=== PATIENT | male | born 1945 | race Caucasian/White ===

== ENCOUNTER → 2016-07-13 | Outpatient (CLI) | payer MEDICARE, BC ==
--- NOTE | 2016-07-13 10:25 | XR ---
EXAM TYPE: LUMBAR SPINE X RAY SERIES COMPARISON: NONE HISTORY: Back pain FINDINGS: Alignment is anatomic. The pedicles are intact. The transverse processes are intact. There is no s pondylolysis or spondylolisthesis. Slight curvature of the spine. Facet arthropathy L4-5 and L5-S1. Severe degenerative disc disease L-1 through S1. IMPRESSION: 1. Multilevel degenerative disc disease.
== END | disposition home or self-care (01) ==
LOC: RADXRMAIN 09:51
PROVIDERS: ATTEND Internal Medicine
DX: M51.37 Other intervertebral disc degeneration, lumbosacral region (principal)
CPT/HCPCS: 72110

== ENCOUNTER → 2016-07-27 | Outpatient (CLI) | payer MEDICARE, BC ==
--- NOTE | 2016-07-27 15:21 | US ---
EXAMINATION TYPE: US kidneys/renal and bladder DATE OF EXAM: 07/27/2016 3:04 PM COMPARISON: NONE CLINICAL HISTORY: 71-year-old male with M54.9 left CVA PAIN. LEFT FLANK PAIN per patient TECHNIQUE: Multiple sonographic images of the kidneys and bladder were obtained. FINDINGS: Right Kidney: 12.2 x 5.1 x 5.8 cm without hydronephrosis. Left Kidney: 12.2 x 5.3 x 3.8 cm without hydronephrosis. Underdistention of the bladder limits its evaluation. IMPRESSION: No hydronephrosis. Note that ultrasound is not very sensitive for pyelonephritis.
== END | disposition home or self-care (01) ==
LOC: RADUSWWP 14:46
PROVIDERS: ATTEND Internal Medicine
DX: M54.9 Dorsalgia, unspecified (principal)
CPT/HCPCS: 76770

== ENCOUNTER → 2017-12-06 | Outpatient (CLI) | payer MEDICARE, BC ==
[2017-12-06 11:18] LABS: HCT 42.8 % (39.0-53.0); HGB 14.1 gm/dL (13.0-17.5); MCV 90.8 fL (80.0-100.0); Mean Platelet Volume 9.1; Platelet Count 214 k/uL (150-450); RBC 4.72 m/uL (4.30-5.90); RDW 12.8 % (11.5-15.5); WBC 8.2 k/uL (3.8-10.6)
[2017-12-06 11:29] LABS: Potassium 5.2 mmol/L (3.5-5.1)
== END | disposition home or self-care (01) ==
LOC: LABPAT 10:51
PROVIDERS: ATTEND Internal Medicine Interventional Cardiology
DX: Z01.812 Encounter for preprocedural laboratory examination (principal); I25.10 Atherosclerotic heart disease of native coronary artery without angina pectoris
CPT/HCPCS: 36415; 80051; 82565; 84520; 85027

== ENCOUNTER → 2017-12-14 | Day surgery (SDC) | payer MEDICARE, BC ==
[~2017-12-14] MED LIST: ALPRAZolam 0.25 MG TAB PO PRN; ALPRAZolam 0.5 MG TAB PO PRN; ASPIRIN 325 MG TAB PO STA; ATORVASTATIN 80 MG TAB PO STA; FUROSEMIDE 10 MG/ML 2 ML VIAL IV ONE; FUROSEMIDE 10 MG/ML 4 ML VIAL IVP ONE; FUROSEMIDE 10 MG/ML 4 ML VIAL ONE; HEPARIN SODIUM 1,000 UN/ML (10ML VL) IV ONE; IOPAMIDOL-370 100ML BTL INJ ONE; IOPAMIDOL-370 50ML BTL INJ ONE; LIDOCAINE 2% SYG (PF) 100 MG/5 ML MISCELLANE ONE; MIDAZOLAM 2 MG/2 ML VIAL IVP ONE; NITROGLYCERIN SL TABS 0.4 MG TAB SUBLINGUAL PRN; RX INFO: IV CONTRAST WAS GIVEN 1 EACH MISC MISCELLANE PRN; SODIUM CHLORIDE 0.9% 1,000 ML IV SCH; SODIUM CHLORIDE 0.9% 1,000 ML in EMPTY BAG 1 BAG IV ONE; diphenhydrAMINE 50 MG/ML 1 ML VIAL IVP ONE
[2017-12-14 06:58] VITALS: RESP 18
[2017-12-14 07:05] LABS: Glucose,Whole Blood 72 mg/dL (75-99)
[2017-12-14] MEDS: VERAPAMIL SYRINGE (5 MG/10 ML) INTRAARTER ONE ×2 (07:41→08:02)
[2017-12-14 09:09] VITALS: TEMP 98
--- NOTE | 2017-12-14 09:36 | CC ---
CARDIAC CATHETERIZATION REPORT DATE OF SERVICE: 12/14/2017. PROCEDURE: Left heart catheterization and coronary angiography and left ventriculography. PERFORMED BY: Dr. Amanda Pritchett. Moderate conscious sedation time was 31 minutes. Patient was monitored closely for oxygen saturation, hemodynamics and EKG. He received a combination of Versed and Benadryl. CLINICAL INFORMATION: Mr. Ricky Friedman is a 72-year-old gentleman with type 2 diabetes, hypertension, hyperlipidemia, known history of prior anterior myocardial infarction and multiple interventions of his LAD. Because of symptoms suggestive of angina pectoris and shortness of breath with activity and known prior intervention, I recommended coronary angiography. Previous stress test revealed a predominantly fixed defect. The patient was advised coronary angiography with the understanding that he may have progression of CAD. Risks, benefits, options and rationale were explained. His last intervention was performed on September 2011 with LAD stenting and prior to that he had stenting of the LAD and diagonal in 2005. PROCEDURE NOTE: Under local anesthesia and strict aseptic precautions, a 6-Djiboutian introducer was placed in the right radial artery. Using Ultimate 1 catheter I performed selective coronary angiography of the left system. A standard right Natalia was used to perform selective coronary angiography of the right coronary artery. A pigtail catheter was used to check LV pressures and LV gram was performed in 30-degree GREENFIELD projection. The sheath was taken out and a TR band applied as per protocol. Saturation in the fingers of the right hand was 94%. Patient tolerated procedure well without complications. He was bradycardic throughout. Results were discussed with the patient and . CARDIAC CATHETERIZATION FINDINGS: The left ventricle end-diastolic pressure was 24 mmHg without any gradient across the aortic valve. CORONARY ANGIOGRAPHY FINDINGS: LEFT MAIN CORONARY ARTERY: This is a short vessel has moderate 20% diffuse disease throughout. It bifurcates into LAD and circumflex. LEFT ANTERIOR DESCENDING CORONARY ARTERY: This vessel is totally occluded in the proximal portion within the stented segment without much antegrade flow. LEFT POSTERIOR CIRCUMFLEX CORONARY ARTERY: Technically nondominant vessel gives off a single large obtuse marginal that is free of significant disease. There is a groove branch that has a70% to 80% narrowing, but groove branch is small, has diffuse disease, but the circumflex itself has no more than 30% narrowing and runs laterally supplying a fair amount of myocardium. The groove branch of circumflex has 80% stenosis, appears to be small in caliber, but fair distribution. RIGHT CORONARY ARTERY: This is a technically a dominant vessel has mild diffuse disease and moderate to heavy calcification in the proximal and midportion. The midportion has an eccentric 60% narrowing and beyond that there is another 50% to 60% narrowing after which the caliber of the vessel improves. It bifurcates into PDA and PLV. PLV is smaller. PDA is larger. The entire RCA is heavily calcified. There are multiple areas of narrowing and there are tandem lesions one of 60% in the mid and distal portion. The right coronary artery provides rich network of collaterals, especially the conus branch of the RCA provides rich collaterals to the entire LAD and the entire LAD is opacified throughout. LAD has diffuse disease seen throughout. LEFT VENTRICULOGRAM: This was performed in 30-degree GREENFIELD projection revealed left ventricle which is mildly enlarged with mid anterior wall hypokinesia and also anteroapical hypokinesia. Estimated ejection fraction of 35% to 40% without mitral regurgitation. FINAL IMPRESSION: This patient has a totally occluded LAD that was stented multiple times without much antegrade flow. The circumflex groove branch has 70% to 80% stenosis and RCA which is dominant, has type 2 tandem 60% lesions and then provides collaterals to the LAD. There is evidence of anteroapical hypokinesia with ejection fraction of 35% to 40% without mitral regurgitation. RECOMMENDATIONS: I am recommending that we will continue medical therapy for now and check viability in the LAD distribution and if it is there, he will benefit from aortocoronary bypass surgery with graft to the LAD and RCA. RCA has 2 tandem lesions and probably the distal RCA is graftable. Both the LAD and RCA are heavily calcified vessels. The circumflex groove branch can be addressed by way of percutaneous coronary intervention. This could be a hybrid procedure down the road, but first we will check viability assessment. Discussed my thoughts in detail with the patient and and I expect he will be discharged later on today without beta jack because of significant bradycardia. I will also hold his Plavix. MMODL / IJN: [id number] /
--- NOTE | 2017-12-14 11:54 | ECHOF ---
Referral Reason:POST CATH MEASUREMENTS -------- HEIGHT: 175.3 cm WEIGHT: 113.4 kg BP: 116/58 RVIDd: 3.1 cm (< 3.3) IVSd: 1.3 cm (0.6 - 1.1) LVIDd: 5.6 cm (3.9 - 5.3) LVPWd: 1.1 cm (0.6 - 1.1) IVSs: 1.5 cm LVIDs: 3.9 cm LVPWs: 1.9 cm LA Diam: 3.9 cm (2.7 - 3.8) LAESV Index (A-L): 25.13 ml/m Ao Diam: 3.1 cm (2.0 - 3.7) AV Cusp: 2.1 cm (1.5 - 2.6) MV EXCURSION: 18.807 mm (> 18.000) MV EF SLOPE: 75 mm/s (70 - 150) EPSS: 0.7 cm MV E Damian: 0.81 m/s MV DecT: 341 ms MV A Damian: 0.64 m/s MV E/A Ratio: 1.26 FINDINGS -------- Resting bradycardia (HR<60bpm). This was a technically difficult study with suboptimal apical views. The left ventricular size is normal. There is mild concentric left ventricular hypertrophy. Overa ll left ventricular systolic function is moderately impaired with, an EF between 35 - 40 %. The ehsan stolic filling pattern is normal for the age of the patient 11.35. Apical anterior LV wall motion i s hypokinetic. Apical septum LV wall motion is hypokinetic. The right ventricle is normal in size and function. Normal LA size by volume 22+/-6 ml/m2. The right atrium is normal in size. 3 ml of Lumason was utilized for enhancement of images. There is mild aortic valve sclerosis. There is trace mitral regurgitation. The tricuspid valve appears structurally normal. There is no pulmonic regurgitation present. The aortic root size is normal. Normal inferior vena cava with normal inspiratory collapse consistent with estimated right atrial pre ssure of 5 mmHg. There is no pericardial effusion. CONCLUSIONS -------- 1. Resting bradycardia (HR<60bpm). 2. This was a technically difficult study with suboptimal apical views. 3. The left ventricular size is normal. 4. There is mild concentric left ventricular hypertrophy. 5. Apical septum LV wall motion is hypokinetic. 6. The right ventricle is normal in size and function. 7. Normal LA size by volume 22+/-6 ml/m2. 8. The right atrium is normal in size. 9. 3 ml of Lumason was utilized for enhancement of images. 10. There is mild aortic valve sclerosis. 11. There is trace mitral regurgitation. 12. The tricuspid valve appears structurally normal. 13. There is no pulmonic regurgitation present. 14. The aortic root size is normal. 15. Normal inferior vena cava with normal inspiratory collapse consistent with estimated right atrial pressure of 5 mmHg. 16. There is no pericardial effusion. WORK CAR OPERATOR: Maddie Lozoya RDCS
[2017-12-14 14:13] VITALS: BP 137/60; PULSE 41
== END ==
LOC: CATHCVL 06:19
PROVIDERS: ATTEND Internal Medicine Interventional Cardiology
DX: I25.110 Atherosclerotic heart disease of native coronary artery with unstable angina pectoris (principal); T82.855A Stenosis of coronary artery stent, initial encounter; I25.84 Coronary atherosclerosis due to calcified coronary lesion; I25.82 Chronic total occlusion of coronary artery; E11.22 Type 2 diabetes mellitus with diabetic chronic kidney disease; I12.9 Hypertensive chronic kidney disease with stage 1 through stage 4 chronic kidney disease, or unspecified chronic kidney disease; N18.1 Chronic kidney disease, stage 1; I08.0 Rheumatic disorders of both mitral and aortic valves; I25.2 Old myocardial infarction; R00.1 Bradycardia, unspecified; Z79.4 Long term (current) use of insulin; Z95.5 Presence of coronary angioplasty implant and graft; E78.00 Pure hypercholesterolemia, unspecified; E78.5 Hyperlipidemia, unspecified; Z79.02 Long term (current) use of antithrombotics/antiplatelets; Z79.82 Long term (current) use of aspirin; Z79.1 Long term (current) use of non-steroidal anti-inflammatories (NSAID); Z79.899 Other long term (current) drug therapy
CPT/HCPCS: 93458; C8929; C1769 ×2; C1894; J2250; J1200; J1940 ×2; J2001; J1644; Q9950; Q9967 ×2; 93306

== ENCOUNTER → 2017-12-21 | Outpatient (CLI) | payer MEDICARE, BC ==
[2017-12-21 16:53] LABS: T4, Free (Free Thyroxine) 0.78 ng/dL (0.78-2.19)
== END | disposition home or self-care (01) ==
LOC: LABWHC1 14:55
PROVIDERS: ATTEND Internal Medicine Interventional Cardiology
DX: E03.9 Hypothyroidism, unspecified (principal)
CPT/HCPCS: 36415; 82607; 82746; 84439; 84443

== ENCOUNTER → 2018-01-04 | Outpatient (CLI) | payer MEDICARE, BC ==
[2018-01-04 09:45] LABS: Appearance,Urine Clear (Clear); Bilirubin,Urine Negative (Negative); Blood,Urine Negative (Negative); Color,Urine Yellow; Glucose,Urine (UA) Negative (Negative); Ketones,Urine Negative (Negative); Leukocyte Esterase,Urine Negative (Negative); Nitrite,Urine Negative (Negative); Protein,Urine Negative (Negative); Specific Gravity,Urine 1.014 (1.001-1.035); Urobilinogen,Urine <2.0 mg/dL (<2.0)
[2018-01-04 09:56] LABS: HGB 15.1 gm/dL (13.0-17.5); MCHC 32.9 g/dL (31.0-37.0); MCV 91.2 fL (80.0-100.0); Mean Platelet Volume 8.1; Platelet Count 216 k/uL (150-450); RBC 5.05 m/uL (4.30-5.90); RDW 12.6 % (11.5-15.5); WBC 7.9 k/uL (3.8-10.6)
[2018-01-04 10:00] LABS: Albumin 4.1 g/dL (3.5-5.0); Calcium 9.8 mg/dL (8.4-10.2); INR 1.1 (<1.2); Magnesium 1.8 mg/dL (1.6-2.3); Partial Thromboplastin Time 25.5 sec (22.0-30.0); Potassium 4.9 mmol/L (3.5-5.1); Prothrombin Time 10.4 sec (9.0-12.0); Total Bilirubin 0.6 mg/dL (0.2-1.3); Total Protein 6.6 g/dL (6.3-8.2)
--- NOTE | 2018-01-04 14:30 | XR ---
EXAMINATION TYPE: XR chest 2V DATE OF EXAM: 01/04/2018 COMPARISON: Prior chest x-ray 06/09/2014 HISTORY: Preop TECHNIQUE: Frontal and lateral views of the chest are obtained. FINDINGS: There are old right-sided rib fractures, as on prior exam. There is no evident airspace di sease, pneumothorax, or pleural effusion. Strand-like densities at the lingula likely reflects scarri ng and are stable. Cardiac mediastinal silhouette, pulmonary vascularity and jesica are unchanged. Pers istent elevation of the right hemidiaphragm. Coronary artery stent noted. IMPRESSION: No acute cardiopulmonary process.
[2018-01-04 17:09] LABS: Hepatitis A Antibody IgM Non-Reactive (Non-Reactive); Hepatitis B Core IgM Non-Reactive (Non-Reactive)
[2018-01-04 17:31] LABS: Hemoglobin A1C 6.8 % (4.0-6.0)
--- NOTE | 2018-01-08 10:57 | P.PN ---
Progress Note - Text Progress Note Date: 01/04/18 5 meter walk test completed on 01/04/18: #1 4.26 sec #2 4.19 sec #3 3.85 sec
--- NOTE | 2018-01-09 11:43 | P.VSCSTY ---
Greater Saphenous Vein Mapping This is bilateral lower extremity greater saphenous vein mapping. Date of service 01/04/2018 Vein quality and ultrasound appearance no intraluminal thrombus or wall changes are seen. Vein size groin right 6.3 x 7.6 groin left 11 x 10.6 High thigh right 5.7 x 6.1 high thigh left 4.4 x 5.6 Mid thigh right 5.7 x 6.5 mid thigh left 4.6 x 5.0 Above-knee right 4.7 x 5.4 above- knee left 4.8 x 5.5 Below knee right 3.9 x 4.6 below-knee left 4.3 x 4.9 Mid calf right 3.4 x 4.0 mid calf left 4.6 x 5.6 Ankle right 4.4 x 3.7 ankle left 4.3 x 6.1 Impression usable bilateral greater saphenous vein.
[2018-01-09 13:42] LABS: Glucose,Whole Blood 156 mg/dL (75-99)
[2018-01-09 14:11] LABS: Glucose,Whole Blood 149 mg/dL (75-99)
--- NOTE | 2018-01-10 10:25 | P.ARTDOP ---
Arterial Doppler LOWER EXTREMITY ARTERIAL DOPPLER: DATE OF SERVICE: 01/04/2018 Reason for study: Preop CABG. Doppler waveforms: Multiphasic bilaterally throughout. Pulse volume recording: []. Pressure gradients: None. Ankle-brachial indices: Greater than 1 bilaterally. Toe pressures: [] on the right, [] on the left Impression: Normal study.
== END | disposition home or self-care (01) ==
LOC: LABPAT 07:30
PROVIDERS: ATTEND Thoracic Surgery (Cardiothoracic Vascular Surgery)
DX: I25.10 Atherosclerotic heart disease of native coronary artery without angina pectoris (principal)
CPT/HCPCS: 36415; 71046; 80053; 80061; 80074; 81003; 83036; 83735; 83880; 84443; 84484; 85027; 85610; 85730; 86850; 86900; 86901; 86920; 87070; 87086; 93005; 93922; 93970; 94150

== ENCOUNTER 2018-01-09 05:37 | Inpatient (IN) | payer MEDICARE, BC ==
[~2018-01-09 05:37] MED LIST changes: +ALBUMIN HUMAN 25% 50 ML IV ONE; +ALBUMIN HUMAN 5% 500 ML IVPB ONE; -ALPRAZolam 0.25 MG TAB PO PRN; -ALPRAZolam 0.5 MG TAB PO PRN; +ASPIRIN 325 MG TAB PO ONE; -ASPIRIN 325 MG TAB PO STA; +ATORVASTATIN 10 MG TAB PO ONE; -ATORVASTATIN 80 MG TAB PO STA; +CALCIUM CHLORIDE 100 MG/ML 10 ML SYRINGE IV ONE; +CHLORHEXIDINE GLUCONATE 15 ML CUP MUCOUS MEM ONE; +CLEVIDIPINE BUTYRATE 25 MG in EMPTY BAG 1 BAG IV ONE; +DEXTROSE 5% IN WATER 1,000 ML with POTASSIUM CHLORIDE 110 MEQ, MAGNESIUM SULFATE 16 MEQ... IV ONE; +DEXTROSE 5% IN WATER 1,000 ML with POTASSIUM CHLORIDE 25 MEQ, SODIUM CHLORIDE 2.5MEQ/ML... IRRIGATION ONE; -FUROSEMIDE 10 MG/ML 2 ML VIAL IV ONE; -FUROSEMIDE 10 MG/ML 4 ML VIAL IVP ONE; -FUROSEMIDE 10 MG/ML 4 ML VIAL ONE; +HEPARIN SODIUM,PORCINE 5,000 UNIT in SODIUM CHLORIDE 0.9% 500 ML IV ONE; +INSULIN REGULAR 100 UNIT in SODIUM CHLORIDE 0.9% 100 ML IV ONE; -IOPAMIDOL-370 100ML BTL INJ ONE; -IOPAMIDOL-370 50ML BTL INJ ONE; +LACTATED RINGERS 1,000 ML IV ONE; -LIDOCAINE 2% SYG (PF) 100 MG/5 ML MISCELLANE ONE; +MAGNESIUM SULFATE MG 500 MG/ML VIAL IV ONE; +MANNITOL 25% 12.5 GM/50 ML VIAL IV ONE; +METOPROLOL TARTRATE 12.5 MG TAB PO ONE; -MIDAZOLAM 2 MG/2 ML VIAL IVP ONE; +MUPIROCIN 2% OINT 22 GM TUBE NASAL ONE; +NITROGLYCERIN SL TABS 0.4 MG TAB SUBLINGUAL ONE; -NITROGLYCERIN SL TABS 0.4 MG TAB SUBLINGUAL PRN; +NITROGLYCERIN-D5W PMX 25 MG/250 ML BTL IV ONE; +NITROGLYCERIN-D5W PMX 50 MG in DEXTROSE/WATER 1 250ML.BAG IV ONE; +NOREPINEPHRINE 4 MG in DEXTROSE 5% IN WATER 250 ML IV ONE; +PAPAVERINE 360 MG in SODIUM CHLORIDE 0.9% 90 ML IV ONE; +PHENYLEPHRINE 40 MG in SODIUM CHLORIDE 0.9% 250 ML IV ONE; +PHENYLEPHRINE-0.9% NACL SYG 1 MG/10 ML SYRINGE IV ONE; +PROPOFOL 1,000 MG/100 ML VIAL IV ONE; +PROTAMINE SULFATE 10 MG/ML 25 ML VIAL IV ONE; +PROTAMINE SULFATE 250 MG in EMPTY BAG 1 BAG IV ONE; -RX INFO: IV CONTRAST WAS GIVEN 1 EACH MISC MISCELLANE PRN; +SODIUM BICARB 8.4% 50 ML SYR (1 MEQ/ML) IV ONE; +SODIUM CHLORIDE 0.9% 1,000 ML IV ONE; -SODIUM CHLORIDE 0.9% 1,000 ML IV SCH; -SODIUM CHLORIDE 0.9% 1,000 ML in EMPTY BAG 1 BAG IV ONE; +TRANEXAMIC ACID 2,000 MG in SODIUM CHLORIDE 0.9% 180 ML IV ONE; +ceFAZolin 1,000 MG in SODIUM CHLORIDE 0.9% IRRIGATIO 1,000 ML IRRIGATION ONE; +ceFAZolin 2,000 MG in SODIUM CHLORIDE 0.9% 30 ML IVPB ONE; -diphenhydrAMINE 50 MG/ML 1 ML VIAL IVP ONE
[2018-01-09 06:48] LABS: Glucose,Whole Blood 117 mg/dL (75-99)
[2018-01-09] MEDS ORDERED: ceFAZolin 1,000 MG VIAL ONE (08:08)
[2018-01-09] MEDS ORDERED: TRANEXAMIC ACID 1,000 MG/10 ML VIAL ONE (08:08)
[2018-01-09] MEDS ORDERED: SODIUM CHLORIDE 0.9% IRRIG 1,000 ML BTL IRRIGATION ONE (08:08)
[2018-01-09] MEDS ORDERED: LIDOCAINE 2% SYG (PF) 100 MG/5 ML ONE (08:08)
[2018-01-09] MEDS ORDERED: SODIUM CHLORIDE 0.9% 250 ML BAG ONE (08:08)
[2018-01-09] MEDS ORDERED: MILRINONE-D5W PMX 20 MG/100 ML BAG IV ONE (08:08)
[2018-01-09] MEDS ORDERED: fentaNYL (PF) 50 MCG/ML 50 ML VIAL ONE (08:08)
[2018-01-09] MEDS ORDERED: fentaNYL (PF) 50 MCG/ML 2 ML AMP ONE (08:08)
[2018-01-09] MEDS ORDERED: ELECTROLYTE-R (PH 7.4) 1,000 ML IV.SOLN IV ONE (08:08)
[2018-01-09] MEDS ORDERED: PROPOFOL 10 MG/ML 20 ML VIAL IV ONE (08:08)
[2018-01-09] MEDS ORDERED: PROTAMINE SULFATE 10 MG/ML 25 ML VIAL IV ONE (08:08)
[2018-01-09] MEDS ORDERED: ePHEDrine SULFATE/0.9% NACL/PF 50 MG/5 ML SYRINGE IV ONE (08:08)
[2018-01-09] MEDS ORDERED: PHENYLEPHRINE-0.9% NACL SYG 1 MG/10 ML SYRINGE ONE (08:08)
[2018-01-09] MEDS ORDERED: CALCIUM CHLORIDE 100 MG/ML 10 ML SYRINGE ONE (08:08)
[2018-01-09] MEDS ORDERED: SUFentanil 50 MCG/ML 2ML AMP ONE (08:08)
[2018-01-09] MEDS ORDERED: HEPARIN SODIUM,PORCINE 10,000 UNIT/ML 1 ML VIAL ONE (08:08)
[2018-01-09] MEDS ORDERED: VECURONIUM 10 MG VIAL IV ONE (08:08)
[2018-01-09] MEDS ORDERED: MIDAZOLAM 2 MG/2 ML VIAL ONE (08:08)
[2018-01-09 08:46] LABS: ABG Base Excess 0.6 mmol/L; ABG HCO3 26 mmol/L (21-25); ABG Oxygen Saturation 99.4 % (94-97); ABG PCO2 43 mmHg (35-45); ABG PH 7.39 (7.35-7.45); ABG PO2 142 mmHg (83-108); ABG Potassium Whole Blood 4.4 mmol/L (3.4-4.5); ABG Sodium Whole Blood 140 mmol/L (135-146); ABG TCO2 27 mmol/L (19-24)
[2018-01-09] MEDS ORDERED: ceFAZolin 1,000 MG in SODIUM CHLORIDE 0.9% 1,000 ML IRRIGATION ONE (09:12)
[2018-01-09] MEDS ORDERED: SODIUM CHLORIDE 0.9% 500 ML with HEPARIN SODIUM,PORCINE 5,000 UNIT IV ONE ×2 (09:12)
[2018-01-09] MEDS ORDERED: PAPAVERINE 360 MG in SODIUM CHLORIDE 0.9% 90 ML IV ONE (09:13)
[2018-01-09] MEDS ORDERED: TRANEXAMIC ACID 2,000 MG in SODIUM CHLORIDE 0.9% 180 ML IV ONE (09:45)
[2018-01-09 10:12] LABS: ABG Base Excess 0.7 mmol/L; ABG HCO3 25 mmol/L (21-25); ABG Oxygen Saturation 97.9 % (94-97); ABG PCO2 40 mmHg (35-45); ABG PH 7.42 (7.35-7.45); ABG PO2 97 mmHg (83-108); ABG Potassium Whole Blood 4.3 mmol/L (3.4-4.5); ABG Sodium Whole Blood 139 mmol/L (135-146); ABG TCO2 27 mmol/L (19-24)
[2018-01-09 10:48] LABS: ABG Base Excess -0.1 mmol/L; ABG HCO3 26 mmol/L (21-25); ABG Oxygen Saturation 99.5 % (94-97); ABG PCO2 50 mmHg (35-45); ABG PH 7.33 (7.35-7.45); ABG PO2 162 mmHg (83-108); ABG Potassium Whole Blood 5.2 mmol/L (3.4-4.5); ABG Sodium Whole Blood 134 mmol/L (135-146); ABG TCO2 28 mmol/L (19-24)
[2018-01-09 11:19] LABS: ABG Base Excess 0.5 mmol/L; ABG HCO3 26 mmol/L (21-25); ABG PCO2 42 mmHg (35-45); ABG PH 7.39 (7.35-7.45); ABG PO2 273 mmHg (83-108); ABG Potassium Whole Blood 5.3 mmol/L (3.4-4.5); ABG Sodium Whole Blood 134 mmol/L (135-146); ABG TCO2 27 mmol/L (19-24)
[2018-01-09] MEDS ORDERED: DEXTROSE 5% IN WATER 100 ML with AMIODARONE 150 MG IV PRN (13:03)
[2018-01-09] MEDS ORDERED: Magnesium Replacement Protocol 1 EACH MISC MISCELLANE PRN (13:03)
[2018-01-09] MEDS ORDERED: METOCLOPRAMIDE 5 MG/ML 2 ML VIAL IVP PRN (13:03)
[2018-01-09] MEDS ORDERED: IPRATROPIUM-ALBUTEROL 3 ML NEB INHALATION PRN (13:03)
[2018-01-09] MEDS ORDERED: ALBUMIN HUMAN 5% 250 ML in EMPTY BAG 1 BAG IVPB PRN (13:03)
[2018-01-09] MEDS ORDERED: BENZOCAINE/MENTHOL LOZENG 1 EACH LOZENGE MUCOUS MEM PRN (13:03)
[2018-01-09] MEDS ORDERED: Phosphorus Replacement Protoco 1 EACH MISC MISCELLANE PRN (13:03)
[2018-01-09] MEDS ORDERED: MILRINONE-D5W PMX 20 MG in DEXTROSE/WATER 1 100ML.BAG IV SCH (13:03)
[2018-01-09] MEDS ORDERED: ONDANSETRON 4 MG/2 ML VIAL IVP PRN (13:03)
[2018-01-09] MEDS ORDERED: NITROGLYCERIN-D5W PMX 50 MG in DEXTROSE/WATER 1 250ML.BAG IV SCH (13:03)
[2018-01-09] MEDS ORDERED: Potassium Replacement Protocol 1 EACH MISC MISCELLANE PRN (13:03)
[2018-01-09] MEDS ORDERED: CALCIUM CHLORIDE 1,000 MG in SODIUM CHLORIDE 0.9% 100 ML IV PRN (14:00)
[2018-01-09 14:03] LABS: Ionized Calcium 5.1 mg/dL (4.5-5.3)
[2018-01-09 14:05] LABS: INR 1.3 (<1.2); Partial Thromboplastin Time 24.4 sec (22.0-30.0)
[2018-01-09 14:09] LABS: ABG Base Excess 0.8 mmol/L; ABG HCO3 27 mmol/L (21-25); ABG Oxygen Saturation 92.5 % (94-97); ABG PCO2 57 mmHg (35-45); ABG PH 7.29 (7.35-7.45); ABG PO2 71 mmHg (83-108); ABG TCO2 29 mmol/L (19-24)
--- NOTE | 2018-01-09 14:14 | XR ---
EXAMINATION TYPE: XR chest 1V portable DATE OF EXAM: 01/09/2018 COMPARISON: 01/04/2018 HISTORY: Post cardiac surgery TECHNIQUE: Single frontal view of the chest is obtained. FINDINGS: ET tube approximately 3.9 cm above the jonathon. Wayland-Callie catheter seen with the tip overly ing the proximal pulmonary outflow tract. There is postsurgical changes. Mediastinal drain and chest tube noted. Chronic appearing rib fractures noted on the right. There is bilateral areas of consolidation and ple ural effusion particularly extending along the left lung apex. IMPRESSION: 1. Postsurgical changes with bilateral areas of consolidation and pleural effusion in with apical ple ural-based thickening which may represent fluid. Correlate clinically. 2. No pneumothorax.
[2018-01-09 14:16] LABS: ALT 36 U/L (21-72); AST 40 U/L (17-59); Albumin 2.6 g/dL (3.5-5.0); Alkaline Phosphatase 26 U/L (38-126); Anion Gap 4 mmol/L; Blood Urea Nitrogen 17 mg/dL (9-20); Calcium 8.2 mg/dL (8.4-10.2); Carbon Dioxide 27 mmol/L (22-30); Chloride 106 mmol/L (98-107); Glucose 144 mg/dL (74-99); Magnesium 2.4 mg/dL (1.6-2.3); Potassium 4.5 mmol/L (3.5-5.1); Sodium 137 mmol/L (137-145); Total Bilirubin 0.6 mg/dL (0.2-1.3); Total Protein 4.4 g/dL (6.3-8.2)
[2018-01-09 14:28] LABS: Basophils % (A) 0 %; Eosinophils % (A) 0 %; HCT 33.4 % (39.0-53.0); Lymphocytes # (A) 0.6 k/uL (1.0-4.8); Lymphocytes % (A) 5 %; MCH 29.5 pg (25.0-35.0); MCHC 32.4 g/dL (31.0-37.0); MCV 91.1 fL (80.0-100.0); Mean Platelet Volume 9.1; Monocytes # (A) 0.9 k/uL (0-1.0); Monocytes % (A) 7 %; Neutrophils # (A) 10.4 k/uL (1.3-7.7); Neutrophils % (A) 87 %; Platelet Count 144 k/uL (150-450); RBC 3.67 m/uL (4.30-5.90); RDW 12.8 % (11.5-15.5); WBC 11.9 k/uL (3.8-10.6)
[2018-01-09 14:34] LABS: HGB 10.8 gm/dL (13.0-17.5)
[2018-01-09] MEDS: INSULIN REGULAR 100 UNIT in SODIUM CHLORIDE 0.9% 100 ML IV SCH (14:38)
[2018-01-09] MEDS: CLEVIDIPINE BUTYRATE 25 MG in EMPTY BAG 1 BAG IV SCH ×2 (14:39→21:09)
[2018-01-09] MEDS: LACTATED RINGERS 1,000 ML IV SCH (14:40)
--- NOTE | 2018-01-09 15:05 | OP ---
OPERATIVE REPORT DATE OF THE OPERATION: 01/09/2018. ATTENDING SURGEON: Dr. Shlomo Orosco. BIOMASS TECHNICIAN: Dev Posadas, Karl Chavez and Christofer Green. PREOPERATIVE DIAGNOSES: 1. Unstable angina. 2. Three vessel coronary artery disease. POSTOPERATIVE DIAGNOSES: 1. Unstable angina. 2. Three vessel coronary artery disease. PROCEDURES: 1. Coronary bypass grafting x3 with left internal mammary to left anterior descending artery, reverse saphenous vein graft off the aorta to the circumflex artery and the posterior descending artery with left greater saphenous vein endoscopic vein harvesting. 2. Clip ligation of the left atrial appendage with a #35 mm AtriClip. 3. Intraoperative CAYLA. ANESTHESIA: General. BLOOD LOSS: 500 mL. SUMMARY: The patient taken the operating placed supine position. After insertion of endotracheal anesthetic, placement of a [place]aconda-Callie catheter, arterial line, adequate IV access and a Del Rosario catheter, patient was carefully prepped and draped in a sterile fashion using Betadine and sterile towels. The greater saphenous vein was harvested from the right lower extremity with endovascular vein harvesting technique. All branches were doubly tied and divided and the incisions closed in 2 layers. A midline incision in the chest made sternum divided pericardium was opened. Heart size was slightly enlarged and aorta was soft. Left pleural space opened, the left internal mammary artery harvested as a pedicle from the xiphoid to the left subclavian vein. It was of 2 mm quality with excellent flow. The patient was heparinized to maintain ACT greater than 480. Aorta and vena cava were cannulated and retrograde cardioplegic catheters positioned in the ascending aorta and the coronary sinus. Patient was placed on bypass. Cross-clamp placed. The heart arrested. 500 mL retrograde cardioplegia. Retrograde cardioplegia was delivered 3-500 mL at the end of each 20 minute interval. The distal anastomoses were constructed. Reverse saphenous vein graft anastomosis to the posterior descending artery constructed using a 7-0 Prolene running suture, caliber of this vessel was 1.75 mm. Next, saphenous vein anastomosis to the circumflex artery was constructed in a similar fashion. This was 1.75 mm vessel. Next, the left internal mammary was beveled and distal anastomosis to the mid left anterior descending artery constructed using an 8-0 Prolene running suture. Caliber of this vessel is 2 mm. Under single cross-clamp, 2 proximal anastomosis were constructed on the ascending aorta using 6-0 Prolene running suture. Patient was placed head down. The aortic root was vented. One liter of warm blood retrograde cardioplegia was run. At this point, the base of the left atrial appendage was clipped with a #35 mm AtriClip. Cross-clamp was then removed. Once beating normal sinus rhythm, patient was brought off bypass. He came off bypass uneventfully with good hemodynamic support being delivered. Patient decannulated. Atrial ventricular pacing wires were placed. Mediastinal left pleural chest tubes were placed. At this point, the sternum was closed with 7 #6 sternal wires. Skin, subcutaneous tissue, fascia closed in 3 layers. The patient tolerated procedure well and was taken to the cardiovascular intensive care unit in stable condition. ANNE / TIANN: [id number] /
[2018-01-09 15:16] LABS: ABG Base Excess 0.6 mmol/L; ABG HCO3 27 mmol/L (21-25); ABG Oxygen Saturation 88.3 % (94-97); ABG PCO2 56 mmHg (35-45); ABG PH 7.29 (7.35-7.45); ABG PO2 60 mmHg (83-108); ABG TCO2 29 mmol/L (19-24)
[2018-01-09 15:17] LABS: Glucose,Whole Blood 137 mg/dL (75-99)
[2018-01-09 15:51] LABS: Glucose,Whole Blood 135 mg/dL (75-99)
[2018-01-09] MEDS ORDERED: IPRATROPIUM-ALBUTEROL 3 ML NEB INHALATION SCH (16:00)
--- NOTE | 2018-01-09 16:35 | CONS ---
CONSULTATION ATTENDING DOCTOR: Dr. Orosco and Dr. Barr Mr. Friedman is a 72-year-old male who was admitted to undergo coronary artery bypass grafting. He has a known history of CAD, has been followed by Dr. Amanda Pritchett. He has underwent stenting of the LAD in the past. He recently underwent a cardiac catheterization, was found to have a totally occluded LAD with tandem lesion and the RCA and the AV groove left circumflex. Because of that he was admitted and underwent coronary bypass grafting today by Dr. Orosco. He is intubated and sedated at this time on IV Primacor. His paced rhythm underlying rhythm is a sinus mechanism with sinus bradycardia. He received a RODRIGUES to the LAD, saphenous vein graft to the circumflex and to the PDA. Apparently there was improvement in his left ventricular systolic function at the end of the procedure. Pre surgically, it was felt that his anterior wall is viable. His coronary risk factors positive for diabetes, hypertension, hyperlipidemia. MEDICATION: At the time of presentation included metformin, Flomax, Aldactone, simvastatin 40 mg daily, losartan 50 mg daily, insulin, citalopram, and aspirin. REVIEW OF SYSTEMS: Could not be obtained. PHYSICAL EXAMINATION: He is a 72-year-old male, intubated, sedated. Blood pressure 140/60 with a heart rate in the 80s, paced. HEAD: Normocephalic. EYES: Sclerae nonicteric. NECK: [place]-Callie noted in place. No bruit. LUNGS: Clear to auscultation anteriorly. HEART: Regular rate and rhythm. S1, S2. No rub appreciated. ABDOMEN: Soft. No organomegaly. Hypoactive bowel sounds. EXTREMITIES: Marcelo wrapping in place. IMPRESSION: 1. Status post coronary bypass grafting. 2. Ischemic cardiomyopathy. 3. Hypertension. 4. Hyperlipidemia. 5. Diabetes mellitus. RECOMMENDATION: I will continue on the routine postoperative care. Hopefully he can be weaned and extubated soon and once stable I will initiate treatment with beta jack, and angiotensin receptor jack in view of the history of cardiomyopathy. Thank you for this consult. We will follow with you. MMODL / IJN: [id number] /
[2018-01-09] MEDS: ceFAZolin IN SWFI 2 GM/20 ML SYRINGE IVP SCH ×2 (16:44→23:33)
[2018-01-09 16:50] LABS: Basophils % (A) 0 %; Eosinophils # (A) 0.1 k/uL (0-0.7); Eosinophils % (A) 0 %; HGB 11.8 gm/dL (13.0-17.5); Lymphocytes # (A) 0.6 k/uL (1.0-4.8); Lymphocytes % (A) 4 %; MCH 29.6 pg (25.0-35.0); MCHC 32.8 g/dL (31.0-37.0); MCV 90.3 fL (80.0-100.0); Mean Platelet Volume 8.6; Monocytes # (A) 0.8 k/uL (0-1.0); Monocytes % (A) 6 %; Neutrophils # (A) 12.6 k/uL (1.3-7.7); Neutrophils % (A) 89 %; Platelet Count 164 k/uL (150-450); RBC 3.99 m/uL (4.30-5.90); RDW 12.7 % (11.5-15.5); WBC 14.2 k/uL (3.8-10.6)
[2018-01-09 16:52] LABS: Glucose,Whole Blood 124 mg/dL (75-99)
--- NOTE | 2018-01-09 16:53 | P.CNPUL ---
History of Present Illness Consult date: 01/09/18 Requesting physician: Shlomo Orosco Reason for consult: other Chief complaint: Multivessel coronary artery disease, status post three-vessel CABG History of present illness: Mr. Friedman is a 72-year-old white male patient of Dr. Barr with past medical history of coronary artery disease with previous myocardial infarction and stenting, insulin-dependent diabetes mellitus, hypertension, hyperlipidemia, chronic congestive heart failure with systolic dysfunction, history of CVA/TIA, lifetime nonsmoker, who we are seeing in consultation today for pulmonary/ critical care management, in the intensive care unit, post 3 vessel coronary artery bypass grafting, RODRIGUES to LAD, SVG to the PDA, and circumflex, and left atrial appendage exclusion with Atriclip, and intraoperative CAYLA. Patient was having symptoms of atypical angina, on the right side of his chest, radiating down his right arm, he underwent heart catheterization on 12/06/2017 which demonstrated left main coronary artery with moderate 20% diffuse disease, total occlusion of the left anterior descending coronary artery with in-stent stenosis , circumflex artery with 70-80% narrowing and mid RCA with 60% stenosis. LV gram showed an ejection fraction of 35-40%, with hypokinesia of the anteroapical wall. 2-D echocardiogram showed moderately impaired systolic function with an ejection fraction of 35-40%. Patient was recommended for surgical revascularization. Preop bedside spirometry revealed FEV1 of 2.0 L, or 62% of predicted, FVC of 2.5 L or 57% of predicted, and patient has a moderate amount of restriction. Patient is currently sedated on mechanical ventilation, initial vent settings were SIMV with a rate of 12, tidal 5 of 550, FiO2 100%, and PEEP of 8. Blood gas showed a O2 of 71, pCO2 57, pH of 7.29 on the above mentioned settings, and settings were changed to assist control mode with a rate of 20, tidal volume of 500, FiO2 100% and PEEP of 10, repeat blood gases showed pO2 of 60, pCO2 56, and pH of 7.29, subsequently was a rate increased to 24, and PEEP increased to 13. Maintenance IV is LR at a rate of 50 , nitroglycerin drip at 5 mics per minute, Primacor at 0.3 mcg/kg/min, and insulin drip at 5 u/hr. Cardiac index and output is 9.0/3.9 respectively, patient's intrinsic rhythm is sinus bradycardia with a rate of 65, he is being paced via epicardial AV wires, at the mode of DDD, with a rate of 70. Blood pressure is 121/51, PA pressures is 37/21. He has a mediastinal and left pleural chest tube, and there has been small serosanguineous amount of output in the chest tube collection chamber. Postop hemoglobin is 10.8, WBC is 11.9, platelet count is 144, INR is 1.3, electrolytes and renal profile are within normal limits. Patient is hemodynamically stable, nonoliguric. Review of Systems Review of system was performed based on the review of the chart, patient is currently sedated and on the mechanical ventilation All systems: negative Constitutional: Denies chills, Denies fever Eyes: denies blurred vision, denies pain Ears, nose, mouth and throat: Denies headache, Denies sore throat Cardiovascular: Reports chest pain, Denies shortness of breath Respiratory: Denies cough Gastrointestinal: Denies abdominal pain, Denies diarrhea, Denies nausea, Denies vomiting Musculoskeletal: Denies myalgias Integumentary: Denies pruritus, Denies rash Neurological: Denies numbness, Denies weakness Psychiatric: Denies anxiety, Denies depression Endocrine: Denies fatigue, Denies weight change Past Medical History Past Medical History: Coronary Artery Disease (CAD), CVA/TIA, Diabetes Mellitus , Hyperlipidemia, Hypertension, Myocardial Infarction (AR), Prostate Disorder Additional Past Medical History / Comment(s): SEE H & P PROVIDED BY DR. EVA SILVERMAN. SOME UPPER RIGHT CHEST PAIN. HX OF TIA, ENLARGED PROSTATE, AR X3 Last Myocardial Infarction Date:: 10/01/2011 History of Any Multi-Drug Resistant Organisms: None Reported Past Surgical History: Heart Catheterization With Stent, Hernia Repair Additional Past Surgical History / Comment(s): INGUINAL HERNIA, RT HEEL SURGERY WITH HARDWARE. BILATERAL CATARACTS. Past Anesthesia/Blood Transfusion Reactions: No Reported Reaction Additional Past Anesthesia/Blood Transfusion Reaction / Comment(s): no hx blood transfusion Date of Last Stent Placement:: 10/01/2011 Smoking Status: Never smoker - Past Family History Mother Family Medical History: Cancer, Diabetes Mellitus Additional Family Medical History / Comment(s): pancreas Father Family Medical History: Cancer Medications and Allergies Home Medications Medication Instructions Recorded Confirmed Type ALPRAZolam [Xanax] 0.25 mg PO BID 03/21/14 01/09/18 History Aspirin EC [Ecotrin Low Dose] 81 mg PO HS 03/21/14 01/09/18 History Citalopram Hydrobromide [CeleXA] 40 mg PO HS 03/21/14 01/09/18 History Losartan [Cozaar] 50 mg PO QAM 03/21/14 01/09/18 History Multivitamins, Thera [Multivitamin 1 tab PO HS 03/21/14 01/09/18 History (formulary)] Simvastatin [Zocor] 40 mg PO QAM 03/21/14 01/09/18 History Spironolactone [Aldactone] 25 mg PO QAM 03/21/14 01/09/18 History metFORMIN HCL [Glucophage] 1,000 mg PO BID 03/21/14 01/09/18 History Insulin NPH Hum/Reg Insulin Hm 64 unit SQ HS 12/08/17 01/09/18 History [NovoLIN 70-30 100 UNIT/ML VIAL] Insulin NPH Hum/Reg Insulin Hm 70 unit SQ QAM 12/08/17 01/09/18 History [NovoLIN 70-30 100 UNIT/ML VIAL] Naproxen [Naprosyn] 250 mg PO BID 12/08/17 01/09/18 History Tamsulosin [Flomax] 0.4 mg PO BID 12/08/17 01/09/18 History guaiFENesin [Mucinex] 600 mg PO BID 12/08/17 01/09/18 History Glucosamine-Chondr 500-400Mg 1 tab PO Q12HR 01/04/18 01/09/18 History Clopidogrel [Plavix] 75 mg PO DAILY 01/08/18 01/09/18 History Polyethylene Glycol 3350 [Miralax] 17 gm PO DAILY PRN 01/08/18 01/09/18 History Allergies Allergy/AdvReac Type Severity Reaction Status Date / Time No Known Allergies Allergy Verified 01/09/18 13:13 Physical Exam Vitals: Vital Signs Temp Pulse Pulse Pulse Resp BP BP 01/09/18 15:56 68 01/09/18 15:47 66 01/09/18 13:03 01/09/18 06:20 97.0 F L 81 80 16 140/66 149/70 Pulse Ox 01/09/18 15:56 01/09/18 15:47 01/09/18 13:03 94 L 01/09/18 06:20 92 L Intake and Output 01/09/18 01/09/18 01/09/18 06:59 14:59 22:59 Intake Total 180 Output Total 1794 Balance -1614 Intake: IV 180 Lactated Ringers 1,000 ml 100 @ 50 mls/hr IV .Q20H PENDING SALE TO [facility] Rx#:[id number] co/ci 60 pressure bag 18 Output: Chest Tube Drainage 28 Left Pleural/Mediastinal 28 Urine 766 Estimated Blood Loss 1000 Other: Voiding Method Indwelling Catheter Weight 113 kg - Constitutional General appearance: no acute distress, obese - EENT Eyes: PERRLA, dentition normal ENT: NA/AT, normal oropharynx - Neck Neck: no lymphadenopathy Carotids: bilateral: upstroke normal Thyroid: bilateral: normal size - Respiratory Respiratory: bilateral: CTA - Cardiovascular Midsternal incision is clean dry and intact, stable, covered with surgical dressing, mediastinal and left pleural chest tube insertion sites are clean dry and intact, atrioventricular epicardial wires connected to an external pacemaker , he is currently paced at a mode of DDD with a rate of 70 BPM. Rhythm: regular Heart sounds: normal: S1, S2 ankle Peripheral Edema: absent: None foot Peripheral Edema: absent: None leg Peripheral Edema: absent: None - Gastrointestinal General gastrointestinal: no organomegaly, soft, no tenderness - Integumentary Midsternal incision is clean dry and intact, stable, covered with surgical dressing, mediastinal and left pleural chest tube insertion sites are clean dry and intact, atrioventricular epicardial wires connected to an external pacemaker , he is currently paced at a mode of DDD with a rate of 70 BPM. Integumentary: normal turgor - Neurologic Sedated and on mechanical ventilator - Musculoskeletal Musculoskeletal: strength equal bilaterally - Psychiatric Sedated Results - Laboratory Findings CBC and BMP: 01/09/18 13:42 01/09/18 13:42 ABG ABG pH 7.29 (7.35-7.45) L 01/09/18 15:12 ABG pCO2 56 mmHg (35-45) H 01/09/18 15:12 ABG pO2 60 mmHg (83-108) L 01/09/18 15:12 ABG O2 Saturation 88.3 % (94-97) L 01/09/18 15:12 PT/INR, D-dimer PT 12.0 sec (9.0-12.0) 01/09/18 13:42 INR 1.3 (<1.2) H 01/09/18 13:42 Abnormal lab findings: Abnormal Labs 01/04/18 01/09/18 01/09/18 09:05 06:37 08:46 WBC RBC Hgb Hct Plt Count Neutrophils # Lymphocytes # INR ABG pH ABG pCO2 ABG pO2 142 H ABG HCO3 26 H ABG Total CO2 27 H ABG O2 Saturation 99.4 H ABG Hematocrit ABG Sodium ABG Potassium ABG Ionized Calcium ABG Glucose Hemoglobin POC Glucose (mg/dL) 117 H Glucose Calcium Magnesium Alkaline Phosphatase Total Protein Albumin Arterial Blood Potassium Arterial Blood Glucose Crossmatch See Detail 01/09/18 01/09/18 01/09/18 10:12 10:50 11:21 WBC RBC Hgb Hct Plt Count Neutrophils # Lymphocytes # INR ABG pH 7.33 L ABG pCO2 50 H ABG pO2 162 H 273 H ABG HCO3 26 H 26 H ABG Total CO2 27 H 28 H 27 H ABG O2 Saturation 97.9 H 99.5 H 100.0 H ABG Hematocrit 30 L 31 L ABG Sodium 134 L 134 L ABG Potassium 5.2 H 5.3 H ABG Ionized Calcium 4.3 L 4.3 L ABG Glucose 113 H 189 H 190 H Hemoglobin 12.9 L 9.7 L 10.0 L POC Glucose (mg/dL) Glucose Calcium Magnesium Alkaline Phosphatase Total Protein Albumin Arterial Blood Potassium 5.2 H 5.3 H Arterial Blood Glucose 113 H 189 H 190 H Crossmatch 01/09/18 01/09/18 01/09/18 13:42 13:42 13:42 WBC 11.9 H RBC 3.67 L Hgb 10.8 L D Hct 33.4 L Plt Count 144 L Neutrophils # 10.4 H Lymphocytes # 0.6 L INR 1.3 H ABG pH ABG pCO2 ABG pO2 ABG HCO3 ABG Total CO2 ABG O2 Saturation ABG Hematocrit ABG Sodium ABG Potassium ABG Ionized Calcium ABG Glucose Hemoglobin POC Glucose (mg/dL) Glucose 144 H Calcium 8.2 L Magnesium 2.4 H Alkaline Phosphatase 26 L Total Protein 4.4 L Albumin 2.6 L Arterial Blood Potassium Arterial Blood Glucose Crossmatch 01/09/18 01/09/18 01/09/18 14:07 15:08 15:12 WBC RBC Hgb Hct Plt Count Neutrophils # Lymphocytes # INR ABG pH 7.29 L 7.29 L ABG pCO2 57 H 56 H ABG pO2 71 L 60 L ABG HCO3 27 H 27 H ABG Total CO2 29 H 29 H ABG O2 Saturation 92.5 L 88.3 L ABG Hematocrit ABG Sodium ABG Potassium ABG Ionized Calcium ABG Glucose Hemoglobin POC Glucose (mg/dL) 137 H Glucose Calcium Magnesium Alkaline Phosphatase Total Protein Albumin Arterial Blood Potassium Arterial Blood Glucose Crossmatch 01/09/18 15:49 WBC RBC Hgb Hct Plt Count Neutrophils # Lymphocytes # INR ABG pH ABG pCO2 ABG pO2 ABG HCO3 ABG Total CO2 ABG O2 Saturation ABG Hematocrit ABG Sodium ABG Potassium ABG Ionized Calcium ABG Glucose Hemoglobin POC Glucose (mg/dL) 135 H Glucose Calcium Magnesium Alkaline Phosphatase Total Protein Albumin Arterial Blood Potassium Arterial Blood Glucose Crossmatch - Diagnostic Findings Chest x-ray: report reviewed, image reviewed PFT's: report reviewed, image reviewed Assessment and Plan Plan: Assessment: #1. Symptomatic multivessel coronary artery disease, status post three-vessel coronary artery bypass grafting, RODRIGUES to LAD, SVG to the PDA and circumflex, with intraoperative CAYLA and exclusion of left atrial appendage with #32 Atriclip #2. History of coronary artery disease, with 3 previous myocardial infarctions , and previous stenting #3. Lifetime nonsmoker #4. Diabetes mellitus type 2 #5. Hypertension, hyperlipidemia #6. Ischemic cardiomyopathy, with reduced left ventricular systolic function with EF of 35-40% #7. History of CVA/TIA #8. Benign prostatic hypertrophy #9. Anxiety/depression Plan: Repeat blood gases were obtained, vent changes were made accordingly, patient remains very sedated and gases were consistent with acute hypercapnic respiratory failure, and hypoxemia with metabolic response, for that reason patient was placed on assist-control mode of ventilation. Otherwise remains hemodynamically stable,there is minimal output from the mediastinal and left pleural chest tube. Continue nebulized bronchodilators, we'll proceed with weaning protocol once the patient is awake, and is unable to follow directions. We'll provide the patient with incentive spirometry after extubation. Will continue close hemodynamic monitoring. Daily chest x-rays. Daily labs. Monitor for chest tube output, monitor labs, electrolytes, renal profile. We' ll continue to follow. I performed a history & physical examination of the patient and discussed their management with my nurse practitioner, Jazmin Day. I reviewed the nurse practitioner's note and agree with the documented findings and plan of care. Lung sounds are clear. The findings and the impression was discussed with the patient. I attest to the documentation by the nurse practitioner. Critical care time is over 30 minutes Time with Patient: Greater than 30
[2018-01-09 16:55] LABS: ABG HCO3 26 mmol/L (21-25); ABG Oxygen Saturation 95.8 % (94-97); ABG PCO2 45 mmHg (35-45); ABG PH 7.37 (7.35-7.45); ABG PO2 78 mmHg (83-108); ABG TCO2 28 mmol/L (19-24)
[2018-01-09 18:26] LABS: Glucose,Whole Blood 141 mg/dL (75-99)
[2018-01-09] MEDS: ACETAMINOPHEN IV (For NPO) 1,000 MG in EMPTY BAG 1 BAG IVPB SCH (18:33)
[2018-01-09 19:03] LABS: Glucose,Whole Blood 139 mg/dL (75-99)
[2018-01-09] MEDS: IPRATROPIUM-ALBUTEROL 3 ML NEB INHALATION SCH ×2 (19:47→19:48)
[2018-01-09 19:53] LABS: Basophils % (A) 0 %; Eosinophils % (A) 0 %; HCT 34.8 % (39.0-53.0); HGB 11.4 gm/dL (13.0-17.5); Lymphocytes # (A) 0.4 k/uL (1.0-4.8); Lymphocytes % (A) 3 %; MCH 29.6 pg (25.0-35.0); MCHC 32.8 g/dL (31.0-37.0); MCV 90.2 fL (80.0-100.0); Mean Platelet Volume 8.8; Monocytes # (A) 0.7 k/uL (0-1.0); Monocytes % (A) 5 %; Neutrophils # (A) 11.5 k/uL (1.3-7.7); Neutrophils % (A) 90 %; Platelet Count 158 k/uL (150-450); RBC 3.86 m/uL (4.30-5.90); RDW 12.8 % (11.5-15.5); WBC 12.7 k/uL (3.8-10.6)
[2018-01-09 19:55] LABS: Ionized Calcium 5.1 mg/dL (4.5-5.3)
[2018-01-09 20:08] LABS: Glucose,Whole Blood 178 mg/dL (75-99)
[2018-01-09 20:38] LABS: Calcium 8.3 mg/dL (8.4-10.2); Potassium 5.3 mmol/L (3.5-5.1)
[2018-01-09] MEDS: CITALOPRAM HYDROBROMIDE 20 MG TAB PO SCH (20:43)
[2018-01-09] MEDS: MUPIROCIN 2% OINT 22 GM TUBE NASAL SCH (20:55)
[2018-01-09 21:02] LABS: Glucose,Whole Blood 184 mg/dL (75-99)
[2018-01-09] MEDS: PROPOFOL 1,000 MG in EMPTY BAG 1 BAG IV SCH ×2 (21:20→23:03)
[2018-01-09 21:57] LABS: Glucose,Whole Blood 176 mg/dL (75-99)
[2018-01-09 21:59] LABS: ABG Base Excess -1.2 mmol/L; ABG HCO3 25 mmol/L (21-25); ABG Oxygen Saturation 91.9 % (94-97); ABG PCO2 47 mmHg (35-45); ABG PH 7.33 (7.35-7.45); ABG PO2 65 mmHg (83-108); ABG TCO2 26 mmol/L (19-24)
[2018-01-09] MEDS ORDERED: FUROSEMIDE 10 MG/ML 4 ML VIAL IV STA (22:22)
[2018-01-09 23:03] LABS: Glucose,Whole Blood 177 mg/dL (75-99)
[2018-01-09] MEDS: HEPARIN SODIUM,PORCINE 5,000 UNIT/ML 1 ML VIAL SQ SCH (23:37)
[2018-01-09 23:58] LABS: Glucose,Whole Blood 172 mg/dL (75-99)
[2018-01-10] MEDS: ACETAMINOPHEN IV (For NPO) 1,000 MG in EMPTY BAG 1 BAG IVPB SCH ×4 (00:37→17:07)
[2018-01-10 00:50] LABS: Glucose,Whole Blood 167 mg/dL (75-99)
[2018-01-10 01:57] LABS: Glucose,Whole Blood 147 mg/dL (75-99)
[2018-01-10 03:02] LABS: Glucose,Whole Blood 139 mg/dL (75-99)
[2018-01-10] MEDS: CLEVIDIPINE BUTYRATE 25 MG in EMPTY BAG 1 BAG IV SCH ×7 (03:11→19:30)
[2018-01-10] MEDS: PROPOFOL 1,000 MG in EMPTY BAG 1 BAG IV SCH (03:37)
[2018-01-10 04:06] LABS: Glucose,Whole Blood 127 mg/dL (75-99)
[2018-01-10 04:59] LABS: Glucose,Whole Blood 118 mg/dL (75-99)
[2018-01-10 05:17] LABS: ABG Base Excess 0.7 mmol/L; ABG HCO3 25 mmol/L (21-25); ABG Oxygen Saturation 93.2 % (94-97); ABG PCO2 40 mmHg (35-45); ABG PH 7.41 (7.35-7.45); ABG PO2 63 mmHg (83-108); ABG TCO2 27 mmol/L (19-24)
[2018-01-10 05:57] LABS: Glucose,Whole Blood 116 mg/dL (75-99)
[2018-01-10 06:02] LABS: Basophils % (A) 0 %; Eosinophils % (A) 0 %; HCT 34.4 % (39.0-53.0); HGB 11.7 gm/dL (13.0-17.5); Lymphocytes # (A) 0.7 k/uL (1.0-4.8); Lymphocytes % (A) 6 %; MCH 30.5 pg (25.0-35.0); MCV 89.6 fL (80.0-100.0); Mean Platelet Volume 8.4; Monocytes # (A) 1.1 k/uL (0-1.0); Monocytes % (A) 8 %; Neutrophils # (A) 11.2 k/uL (1.3-7.7); Neutrophils % (A) 85 %; Platelet Count 165 k/uL (150-450); RBC 3.84 m/uL (4.30-5.90); RDW 12.8 % (11.5-15.5); WBC 13.3 k/uL (3.8-10.6)
[2018-01-10 06:11] LABS: Ionized Calcium 4.9 mg/dL (4.5-5.3)
[2018-01-10 06:16] LABS: INR 1.1 (<1.2); Partial Thromboplastin Time 23.6 sec (22.0-30.0)
[2018-01-10 06:53] LABS: Glucose,Whole Blood 117 mg/dL (75-99)
[2018-01-10 06:54] LABS: Calcium 8.3 mg/dL (8.4-10.2); Phosphorus 3.4 mg/dL (2.5-4.5); Potassium 4.3 mmol/L (3.5-5.1); Total Bilirubin 0.3 mg/dL (0.2-1.3)
[2018-01-10] MEDS ORDERED: Magnesium Replacement Protocol 1 EACH MISC MISCELLANE PRN (06:54)
[2018-01-10] MEDS: MAGNESIUM SULFATE-D5W PMX 1 GM in DEXTROSE/WATER 1 100ML.BAG IVPB SCH ×2 (07:04→10:16)
[2018-01-10] MEDS: IPRATROPIUM-ALBUTEROL 3 ML NEB INHALATION SCH ×4 (07:28→19:22)
--- NOTE | 2018-01-10 07:51 | PN ---
PROGRESS NOTE Mr. Friedman is a 72-year-old male who underwent coronary artery bypass grafting yesterday. He has a history of ischemic cardiomyopathy. He remains intubated. He was hypoxic yesterday and received a dose of diuretics. He continues to be in sinus mechanism with no evidence of tachy or bradyarrhythmia. He continues to be at this time on aspirin, Lipitor 40 mg daily, Plavix 75 mg daily and metoprolol tartrate 12.5 mg twice a day. PHYSICAL EXAMINATION: Blood pressure running in the 140s and 150s with the heart rate in 60s. LUNGS: With few crackles and decreased breath sounds anteriorly. HEART: Regular rate and rhythm S1, S2. No S3 with a rub. ABDOMEN: Soft. No organomegaly. EXTREMITIES: Marcelo wrapping in place. LAB DATA: Lab data revealed a hemoglobin of 11.7, BUN and creatinine 22 and 1.22. Potassium 4.3. Chest x-ray revealed no infiltrate. IMPRESSION: 1. Status post coronary artery bypass grafting. 2. Respiratory failure, remains intubated. 3. Ischemic cardiomyopathy. 4. Hyperlipidemia. RECOMMENDATION: I am hopeful that we can wean him and extubate him soon. I would recommend to initiate treatment with an MARCELO inhibitor and continue on the beta jack in view of the history of cardiomyopathy. MMODL / IJN: [id number] /
[2018-01-10 08:06] LABS: Glucose,Whole Blood 124 mg/dL (75-99)
--- NOTE | 2018-01-10 08:13 | XR ---
EXAMINATION TYPE: XR chest 1V portable DATE OF EXAM: 01/10/2018 COMPARISON: 01/09/2018 HISTORY: Postop TECHNIQUE: Single frontal view of the chest is obtained. FINDINGS: Bilateral consolidation and pleural effusion noted. Interstitial pattern seen. Magnet-Callie c atheter appears somewhat proximal position overlying the heart border correlate clinically. ET and NG tubes stable. Mediastinal drain and chest tube noted. No sizable pneumothorax. Chronic appearing rib deformities noted. IMPRESSION: 1. Bilateral consolidation and pleural effusion correlate for CHF. Additionally, correlate for positi on of the Magnet-Callie catheter.
[2018-01-10] MEDS: PANTOPRAZOLE 40 MG/10 ML VIAL IVP SCH (08:21)
[2018-01-10] MEDS: ASPIRIN 325 MG TAB PO SCH (08:21)
[2018-01-10] MEDS: ATORVASTATIN 40 MG TAB PO SCH (08:21)
[2018-01-10] MEDS: HEPARIN SODIUM,PORCINE 5,000 UNIT/ML 1 ML VIAL SQ SCH ×2 (08:21→16:17)
[2018-01-10] MEDS: MUPIROCIN 2% OINT 22 GM TUBE NASAL SCH ×2 (08:22→21:54)
[2018-01-10] MEDS: CLOPIDOGREL 75 MG TAB PO SCH (08:22)
[2018-01-10 08:27] LABS: ABG Base Excess -0.2 mmol/L; ABG HCO3 25 mmol/L (21-25); ABG Oxygen Saturation 99.8 % (94-97); ABG PCO2 42 mmHg (35-45); ABG PH 7.38 (7.35-7.45); ABG PO2 218 mmHg (83-108); ABG Potassium Whole Blood 4.6 mmol/L (3.4-4.5); ABG Sodium Whole Blood 136 mmol/L (135-146); ABG TCO2 26 mmol/L (19-24)
[2018-01-10 08:27] LABS: ABG Base Excess 0.3 mmol/L; ABG HCO3 25 mmol/L (21-25); ABG Oxygen Saturation 99.8 % (94-97); ABG PCO2 42 mmHg (35-45); ABG PH 7.39 (7.35-7.45); ABG PO2 214 mmHg (83-108); ABG Potassium Whole Blood 5.2 mmol/L (3.4-4.5); ABG Sodium Whole Blood 135 mmol/L (135-146); ABG TCO2 27 mmol/L (19-24)
[2018-01-10] MEDS ORDERED: FUROSEMIDE 10 MG/ML 4 ML VIAL IV STA (08:38)
[2018-01-10 08:40] LABS: ABG Base Excess 0.8 mmol/L; ABG HCO3 26 mmol/L (21-25); ABG Oxygen Saturation 94.9 % (94-97); ABG PCO2 43 mmHg (35-45); ABG PH 7.39 (7.35-7.45); ABG PO2 72 mmHg (83-108); ABG TCO2 27 mmol/L (19-24)
[2018-01-10 08:52] LABS: Glucose,Whole Blood 112 mg/dL (75-99)
[2018-01-10] MEDS ORDERED: METOPROLOL TARTRATE 12.5 MG TAB PO SCH (09:00)
--- NOTE | 2018-01-10 09:25 | P.PN ---
Subjective Progress Note Date: 01/10/18 Principal diagnosis: Multivessel coronary artery disease, status post three-vessel CABG, postop day 1 Mr. Friedman is a 72-year-old white male patient of Dr. Barr with past medical history of coronary artery disease with previous myocardial infarction and stenting, insulin-dependent diabetes mellitus, hypertension, hyperlipidemia, chronic congestive heart failure with systolic dysfunction, history of CVA/TIA, lifetime nonsmoker, who we are seeing in consultation today for pulmonary/ critical care management, in the intensive care unit, post 3 vessel coronary artery bypass grafting, RODRIGUES to LAD, SVG to the PDA, and circumflex, and left atrial appendage exclusion with Atriclip, and intraoperative CAYLA. Patient was having symptoms of atypical angina, on the right side of his chest, radiating down his right arm, he underwent heart catheterization on 12/06/2017 which demonstrated left main coronary artery with moderate 20% diffuse disease, total occlusion of the left anterior descending coronary artery with in-stent stenosis , circumflex artery with 70-80% narrowing and mid RCA with 60% stenosis. LV gram showed an ejection fraction of 35-40%, with hypokinesia of the anteroapical wall. 2-D echocardiogram showed moderately impaired systolic function with an ejection fraction of 35-40%. Patient was recommended for surgical revascularization. Preop bedside spirometry revealed FEV1 of 2.0 L, or 62% of predicted, FVC of 2.5 L or 57% of predicted, and patient has a moderate amount of restriction. Patient is currently sedated on mechanical ventilation, initial vent settings were SIMV with a rate of 12, tidal 5 of 550, FiO2 100%, and PEEP of 8. Blood gas showed a O2 of 71, pCO2 57, pH of 7.29 on the above mentioned settings, and settings were changed to assist control mode with a rate of 20, tidal volume of 500, FiO2 100% and PEEP of 10, repeat blood gases showed pO2 of 60, pCO2 56, and pH of 7.29, subsequently was a rate increased to 24, and PEEP increased to 13. Maintenance IV is LR at a rate of 50 , nitroglycerin drip at 5 mics per minute, Primacor at 0.3 mcg/kg/min, and insulin drip at 5 u/hr. Cardiac index and output is 9.0/3.9 respectively, patient's intrinsic rhythm is sinus bradycardia with a rate of 65, he is being paced via epicardial AV wires, at the mode of DDD, with a rate of 70. Blood pressure is 121/51, PA pressures is 37/21. He has a mediastinal and left pleural chest tube, and there has been small serosanguineous amount of output in the chest tube collection chamber. Postop hemoglobin is 10.8, WBC is 11.9, platelet count is 144, INR is 1.3, electrolytes and renal profile are within normal limits. Patient is hemodynamically stable, nonoliguric. On 01/10/2018 patient seen again in follow-up in the intensive care unit. Sedated on mechanical ventilation, with vent settings are assist-control mode with a rate of 24, tidal vitamin 500, FiO2 of 65, and PEEP of 5, morning blood gases showed pO2 of 63, pCO2 40, and pH of 7.41. Today's chest x-ray has been reviewed by Dr. Arreola, and showed bilateral consolidation and pleural effusions. Patient was given a sedation holiday, he is following all commands, he was given a spontaneous breathing trial, with pressure support of 5, and CPAP of 5, with FiO2 of 65%, and weaning parameters were completed, and showed tidal vitamin of 380, vital Of 1.2, minute ventilation of 7.9 L, respiratory rate of 22, NIF is -24, RSBI is 52, and these are satisfactory blood gases. Cardiothoracic surgery has ordered a dose of IV Lasix 40 mg. Maintenance IV fluids is LR at a rate of 50 ML per hour, Clevidipine at 10 mg per hour, propofol is currently off, insulin is at 5.5 units per hour, and nitroglycerin is at 5 mcg/min. PA pressures 39/16, CVP is 11, cardiac output and index are 7.1 and 3.1 respectively. Patient was successfully extubated at 0845 to 10 L per high flow nasal cannula, the patient is able to achieve 1000 mL on the incentive spirometry. Patient's current rhythm is sinus rhythm with a rate of 62 BPM, and his current pacemaker settings are backup rate of AAI at a rate of 40 BPM. Midsternal incision is clean dry and intact, stable, mediastinal and left pleural chest tubes are intact, they are connected via Y-connection, and 24 -hour output is 329 mL of serosanguineous drainage. Today's labs were reviewed , WBC is 13.3, hemoglobin is 11.7, INR is 1.1, electrolytes are within normal limits, BUN is 22, creatinine is 1.2. Patient is producing urine it is ranging from 40-75 ML per hour. Objective - Vital Signs Vital signs: Vital Signs Temp 98.6 F 01/10/18 00:00 Pulse 62 01/10/18 07:43 Resp 24 01/10/18 07:43 BP 119/54 01/10/18 04:00 Pulse Ox 94 L 01/10/18 07:00 Intake & Output 01/09/18 01/10/18 01/10/18 18:59 06:59 18:59 Intake Total 679.066 5924.536 131.067 Output Total 2055 1514 105 Balance -1582.175 342.536 26.067 Weight 113 kg 115.5 kg Intake: IV 467 1407 89 ACETAMINOPHEN IV (For NPO 200 ) 1,000 mg In Empty Bag 1 bag @ 400 mls/hr IVPB Q6HR [facility] Rx#:[id number] Lactated Ringers 1,000 ml 250 650 50 @ 50 mls/hr IV .Q20H [facility] Rx#:[id number] ceFAZolin 2,000 mg In 20 Sodium Chloride 0.9% 30 ml @ Per Protocol IVPB ONCE ONE Rx#:[id number] co/ci 170 420 30 pressure bag 45 117 9 Intake, IV Titration 5.825 449.536 42.067 Amount Clevidipine Butyrate 25 148.000 42.067 mg In Empty Bag 1 bag @ 1 MG/HR 2 mls/hr IV .Q24H [facility] Rx#:[id number] Insulin Regular 100 unit 5.825 59.659 In Sodium Chloride 0.9% 100 ml @ Per Protocol IV .Q0M [facility] Rx#:[id number] Milrinone-D5w Pmx 20 mg 84.468 In Dextrose/Water 1 100ml .bag @ Per Protocol IV . Q0M [facility] Rx#:[id number] Propofol 1,000 mg In 157.409 Empty Bag 1 bag @ Titrate IV .Q0M [facility] Rx#: [id number] Output: Chest Tube Drainage 132 197 30 Left Pleural/Mediastinal 132 197 30 Urine 923 1317 75 Estimated Blood Loss 1000 Other: Voiding Method Indwelling Catheter Indwelling Catheter ABP, PAP, CO, CI - Last Documented Arterial Blood Pressure 150/46 Pulmonary Artery Pressure 36/16 Cardiac Output 5.7 Cardiac Index 2.5 - Exam - Constitutional General appearance: no acute distress, obese. Awake, alert, currently on 10 L per high flow nasal cannula. - EENT Eyes: PERRLA, dentition normal ENT: NA/AT, normal oropharynx - Neck Neck: no lymphadenopathy Carotids: bilateral: upstroke normal Thyroid: bilateral: normal size - Respiratory Respiratory: bilateral: CTA - Cardiovascular Midsternal incision is clean dry and intact, stable, covered with surgical dressing, mediastinal and left pleural chest tube insertion sites are clean dry and intact, atrioventricular epicardial wires connected to an external pacemaker , pacemaker is at a backup rate of AAI 40 BPM. Intrinsic rhythm is 62 BPM, sinus rhythm Rhythm: regular Heart sounds: normal: S1, S2 ankle Peripheral Edema: absent: None foot Peripheral Edema: absent: None leg Peripheral Edema: absent: None - Gastrointestinal General gastrointestinal: no organomegaly, soft, no tenderness - Integumentary Midsternal incision is clean dry and intact, stable, covered with surgical dressing, mediastinal and left pleural chest tube insertion sites are clean dry and intact, bilateral lower extremities with ESTELA hose and SCDs, left lower leg incisions clean dry and intact Integumentary: normal turgor - Neurologic Awake and alert, no focal neurological deficits, responding appropriately. - Labs CBC & Chem 7: 01/10/18 05:50 01/10/18 05:50 Labs: Abnormal Lab Results - Last 24 Hours (Table) 01/04/18 01/09/18 01/09/18 Range/Units 09:05 10:12 10:50 WBC (3.8-10.6) k/uL RBC (4.30-5.90) m/uL Hgb (13.0-17.5) gm/dL Hct (39.0-53.0) % Plt Count (150-450) k/uL Neutrophils # (1.3-7.7) k/uL Lymphocytes # (1.0-4.8) k/uL Monocytes # (0-1.0) k/uL INR (<1.2) ABG pH 7.33 L (7.35-7.45) ABG pCO2 50 H (35-45) mmHg ABG pO2 162 H (83-108) mmHg ABG HCO3 26 H (21-25) mmol/L ABG Total CO2 27 H 28 H (19-24) mmol/L ABG O2 Saturation 97.9 H 99.5 H (94-97) % ABG Hematocrit 30 L (34.0-46.0) % ABG Sodium 134 L (135-146) mmol/L ABG Potassium 5.2 H (3.4-4.5) mmol/L ABG Ionized Calcium 4.3 L (4.5-5.3) mg/dL ABG Glucose 113 H 189 H (75-99) mg/dL ABG Lactic Acid (0.5-1.6) mmol/L Hemoglobin 12.9 L 9.7 L (13.0-17.5) gm/dL Sodium (137-145) mmol/L Potassium (3.5-5.1) mmol/L BUN (9-20) mg/dL Glucose (74-99) mg/dL POC Glucose (mg/dL) (75-99) mg/dL Calcium (8.4-10.2) mg/dL Magnesium (1.6-2.3) mg/dL Alkaline Phosphatase (38-126) U/L Total Protein (6.3-8.2) g/dL Albumin (3.5-5.0) g/dL Arterial Blood Potassium 5.2 H (3.4-4.5) mmol/L Arterial Blood Glucose 113 H 189 H (75-99) mg/dL Crossmatch See Detail 01/09/18 01/09/18 01/09/18 Range/Units 11:21 11:47 12:43 WBC (3.8-10.6) k/uL RBC (4.30-5.90) m/uL Hgb (13.0-17.5) gm/dL Hct (39.0-53.0) % Plt Count (150-450) k/uL Neutrophils # (1.3-7.7) k/uL Lymphocytes # (1.0-4.8) k/uL Monocytes # (0-1.0) k/uL INR (<1.2) ABG pH (7.35-7.45) ABG pCO2 (35-45) mmHg ABG pO2 273 H 214 H 218 H (83-108) mmHg ABG HCO3 26 H (21-25) mmol/L ABG Total CO2 27 H 27 H 26 H (19-24) mmol/L ABG O2 Saturation 100.0 H 99.8 H 99.8 H (94-97) % ABG Hematocrit 31 L 30 L 32 L (34.0-46.0) % ABG Sodium 134 L (135-146) mmol/L ABG Potassium 5.3 H 5.2 H 4.6 H (3.4-4.5) mmol/L ABG Ionized Calcium 4.3 L 4.3 L 4.4 L (4.5-5.3) mg/dL ABG Glucose 190 H 191 H 180 H (75-99) mg/dL ABG Lactic Acid 1.9 H 2.4 H* (0.5-1.6) mmol/L Hemoglobin 10.0 L 9.8 L 10.6 L (13.0-17.5) gm/dL Sodium (137-145) mmol/L Potassium (3.5-5.1) mmol/L BUN (9-20) mg/dL Glucose (74-99) mg/dL POC Glucose (mg/dL) (75-99) mg/dL Calcium (8.4-10.2) mg/dL Magnesium (1.6-2.3) mg/dL Alkaline Phosphatase (38-126) U/L Total Protein (6.3-8.2) g/dL Albumin (3.5-5.0) g/dL Arterial Blood Potassium 5.3 H 5.2 H 4.6 H (3.4-4.5) mmol/L Arterial Blood Glucose 190 H 191 H 180 H (75-99) mg/dL Crossmatch 01/09/18 01/09/18 01/09/18 Range/Units 13:42 13:42 13:42 WBC 11.9 H (3.8-10.6) k/uL RBC 3.67 L (4.30-5.90) m/uL Hgb 10.8 L D (13.0-17.5) gm/dL Hct 33.4 L (39.0-53.0) % Plt Count 144 L (150-450) k/uL Neutrophils # 10.4 H (1.3-7.7) k/uL Lymphocytes # 0.6 L (1.0-4.8) k/uL Monocytes # (0-1.0) k/uL INR 1.3 H (<1.2) ABG pH (7.35-7.45) ABG pCO2 (35-45) mmHg ABG pO2 (83-108) mmHg ABG HCO3 (21-25) mmol/L ABG Total CO2 (19-24) mmol/L ABG O2 Saturation (94-97) % ABG Hematocrit (34.0-46.0) % ABG Sodium (135-146) mmol/L ABG Potassium (3.4-4.5) mmol/L ABG Ionized Calcium (4.5-5.3) mg/dL ABG Glucose (75-99) mg/dL ABG Lactic Acid (0.5-1.6) mmol/L Hemoglobin (13.0-17.5) gm/dL Sodium (137-145) mmol/L Potassium (3.5-5.1) mmol/L BUN (9-20) mg/dL Glucose 144 H (74-99) mg/dL POC Glucose (mg/dL) (75-99) mg/dL Calcium 8.2 L (8.4-10.2) mg/dL Magnesium 2.4 H (1.6-2.3) mg/dL Alkaline Phosphatase 26 L (38-126) U/L Total Protein 4.4 L (6.3-8.2) g/dL Albumin 2.6 L (3.5-5.0) g/dL Arterial Blood Potassium (3.4-4.5) mmol/L Arterial Blood Glucose (75-99) mg/dL Crossmatch 01/09/18 01/09/18 01/09/18 Range/Units 14:07 15:08 15:12 WBC (3.8-10.6) k/uL RBC (4.30-5.90) m/uL Hgb (13.0-17.5) gm/dL Hct (39.0-53.0) % Plt Count (150-450) k/uL Neutrophils # (1.3-7.7) k/uL Lymphocytes # (1.0-4.8) k/uL Monocytes # (0-1.0) k/uL INR (<1.2) ABG pH 7.29 L 7.29 L (7.35-7.45) ABG pCO2 57 H 56 H (35-45) mmHg ABG pO2 71 L 60 L (83-108) mmHg ABG HCO3 27 H 27 H (21-25) mmol/L ABG Total CO2 29 H 29 H (19-24) mmol/L ABG O2 Saturation 92.5 L 88.3 L (94-97) % ABG Hematocrit (34.0-46.0) % ABG Sodium (135-146) mmol/L ABG Potassium (3.4-4.5) mmol/L ABG Ionized Calcium (4.5-5.3) mg/dL ABG Glucose (75-99) mg/dL ABG Lactic Acid (0.5-1.6) mmol/L Hemoglobin (13.0-17.5) gm/dL Sodium (137-145) mmol/L Potassium (3.5-5.1) mmol/L BUN (9-20) mg/dL Glucose (74-99) mg/dL POC Glucose (mg/dL) 137 H (75-99) mg/dL Calcium (8.4-10.2) mg/dL Magnesium (1.6-2.3) mg/dL Alkaline Phosphatase (38-126) U/L Total Protein (6.3-8.2) g/dL Albumin (3.5-5.0) g/dL Arterial Blood Potassium (3.4-4.5) mmol/L Arterial Blood Glucose (75-99) mg/dL Crossmatch 01/09/18 01/09/18 01/09/18 Range/Units 15:49 16:20 16:50 WBC 14.2 H (3.8-10.6) k/uL RBC 3.99 L (4.30-5.90) m/uL Hgb 11.8 L (13.0-17.5) gm/dL Hct 36.0 L (39.0-53.0) % Plt Count (150-450) k/uL Neutrophils # 12.6 H (1.3-7.7) k/uL Lymphocytes # 0.6 L (1.0-4.8) k/uL Monocytes # (0-1.0) k/uL INR (<1.2) ABG pH (7.35-7.45) ABG pCO2 (35-45) mmHg ABG pO2 78 L (83-108) mmHg ABG HCO3 26 H (21-25) mmol/L ABG Total CO2 28 H (19-24) mmol/L ABG O2 Saturation (94-97) % ABG Hematocrit (34.0-46.0) % ABG Sodium (135-146) mmol/L ABG Potassium (3.4-4.5) mmol/L ABG Ionized Calcium (4.5-5.3) mg/dL ABG Glucose (75-99) mg/dL ABG Lactic Acid (0.5-1.6) mmol/L Hemoglobin (13.0-17.5) gm/dL Sodium (137-145) mmol/L Potassium (3.5-5.1) mmol/L BUN (9-20) mg/dL Glucose (74-99) mg/dL POC Glucose (mg/dL) 135 H (75-99) mg/dL Calcium (8.4-10.2) mg/dL Magnesium (1.6-2.3) mg/dL Alkaline Phosphatase (38-126) U/L Total Protein (6.3-8.2) g/dL Albumin (3.5-5.0) g/dL Arterial Blood Potassium (3.4-4.5) mmol/L Arterial Blood Glucose (75-99) mg/dL Crossmatch 01/09/18 01/09/18 01/09/18 Range/Units 16:51 18:14 19:01 WBC (3.8-10.6) k/uL RBC (4.30-5.90) m/uL Hgb (13.0-17.5) gm/dL Hct (39.0-53.0) % Plt Count (150-450) k/uL Neutrophils # (1.3-7.7) k/uL Lymphocytes # (1.0-4.8) k/uL Monocytes # (0-1.0) k/uL INR (<1.2) ABG pH (7.35-7.45) ABG pCO2 (35-45) mmHg ABG pO2 (83-108) mmHg ABG HCO3 (21-25) mmol/L ABG Total CO2 (19-24) mmol/L ABG O2 Saturation (94-97) % ABG Hematocrit (34.0-46.0) % ABG Sodium (135-146) mmol/L ABG Potassium (3.4-4.5) mmol/L ABG Ionized Calcium (4.5-5.3) mg/dL ABG Glucose (75-99) mg/dL ABG Lactic Acid (0.5-1.6) mmol/L Hemoglobin (13.0-17.5) gm/dL Sodium (137-145) mmol/L Potassium (3.5-5.1) mmol/L BUN (9-20) mg/dL Glucose (74-99) mg/dL POC Glucose (mg/dL) 124 H 141 H 139 H (75-99) mg/dL Calcium (8.4-10.2) mg/dL Magnesium (1.6-2.3) mg/dL Alkaline Phosphatase (38-126) U/L Total Protein (6.3-8.2) g/dL Albumin (3.5-5.0) g/dL Arterial Blood Potassium (3.4-4.5) mmol/L Arterial Blood Glucose (75-99) mg/dL Crossmatch 01/09/18 01/09/18 01/09/18 Range/Units 19:30 19:30 20:07 WBC 12.7 H (3.8-10.6) k/uL RBC 3.86 L (4.30-5.90) m/uL Hgb 11.4 L (13.0-17.5) gm/dL Hct 34.8 L (39.0-53.0) % Plt Count (150-450) k/uL Neutrophils # 11.5 H (1.3-7.7) k/uL Lymphocytes # 0.4 L (1.0-4.8) k/uL Monocytes # (0-1.0) k/uL INR (<1.2) ABG pH (7.35-7.45) ABG pCO2 (35-45) mmHg ABG pO2 (83-108) mmHg ABG HCO3 (21-25) mmol/L ABG Total CO2 (19-24) mmol/L ABG O2 Saturation (94-97) % ABG Hematocrit (34.0-46.0) % ABG Sodium (135-146) mmol/L ABG Potassium (3.4-4.5) mmol/L ABG Ionized Calcium (4.5-5.3) mg/dL ABG Glucose (75-99) mg/dL ABG Lactic Acid (0.5-1.6) mmol/L Hemoglobin (13.0-17.5) gm/dL Sodium 135 L (137-145) mmol/L Potassium 5.3 H (3.5-5.1) mmol/L BUN (9-20) mg/dL Glucose 153 H (74-99) mg/dL POC Glucose (mg/dL) 178 H (75-99) mg/dL Calcium 8.3 L (8.4-10.2) mg/dL Magnesium (1.6-2.3) mg/dL Alkaline Phosphatase (38-126) U/L Total Protein (6.3-8.2) g/dL Albumin (3.5-5.0) g/dL Arterial Blood Potassium (3.4-4.5) mmol/L Arterial Blood Glucose (75-99) mg/dL Crossmatch 01/09/18 01/09/18 01/09/18 Range/Units 21:01 21:55 21:56 WBC (3.8-10.6) k/uL RBC (4.30-5.90) m/uL Hgb (13.0-17.5) gm/dL Hct (39.0-53.0) % Plt Count (150-450) k/uL Neutrophils # (1.3-7.7) k/uL Lymphocytes # (1.0-4.8) k/uL Monocytes # (0-1.0) k/uL INR (<1.2) ABG pH 7.33 L (7.35-7.45) ABG pCO2 47 H (35-45) mmHg ABG pO2 65 L (83-108) mmHg ABG HCO3 (21-25) mmol/L ABG Total CO2 26 H (19-24) mmol/L ABG O2 Saturation 91.9 L (94-97) % ABG Hematocrit (34.0-46.0) % ABG Sodium (135-146) mmol/L ABG Potassium (3.4-4.5) mmol/L ABG Ionized Calcium (4.5-5.3) mg/dL ABG Glucose (75-99) mg/dL ABG Lactic Acid (0.5-1.6) mmol/L Hemoglobin (13.0-17.5) gm/dL Sodium (137-145) mmol/L Potassium (3.5-5.1) mmol/L BUN (9-20) mg/dL Glucose (74-99) mg/dL POC Glucose (mg/dL) 184 H 176 H (75-99) mg/dL Calcium (8.4-10.2) mg/dL Magnesium (1.6-2.3) mg/dL Alkaline Phosphatase (38-126) U/L Total Protein (6.3-8.2) g/dL Albumin (3.5-5.0) g/dL Arterial Blood Potassium (3.4-4.5) mmol/L Arterial Blood Glucose (75-99) mg/dL Crossmatch 01/09/18 01/09/18 01/10/18 Range/Units 23:01 23:56 00:49 WBC (3.8-10.6) k/uL RBC (4.30-5.90) m/uL Hgb (13.0-17.5) gm/dL Hct (39.0-53.0) % Plt Count (150-450) k/uL Neutrophils # (1.3-7.7) k/uL Lymphocytes # (1.0-4.8) k/uL Monocytes # (0-1.0) k/uL INR (<1.2) ABG pH (7.35-7.45) ABG pCO2 (35-45) mmHg ABG pO2 (83-108) mmHg ABG HCO3 (21-25) mmol/L ABG Total CO2 (19-24) mmol/L ABG O2 Saturation (94-97) % ABG Hematocrit (34.0-46.0) % ABG Sodium (135-146) mmol/L ABG Potassium (3.4-4.5) mmol/L ABG Ionized Calcium (4.5-5.3) mg/dL ABG Glucose (75-99) mg/dL ABG Lactic Acid (0.5-1.6) mmol/L Hemoglobin (13.0-17.5) gm/dL Sodium (137-145) mmol/L Potassium (3.5-5.1) mmol/L BUN (9-20) mg/dL Glucose (74-99) mg/dL POC Glucose (mg/dL) 177 H 172 H 167 H (75-99) mg/dL Calcium (8.4-10.2) mg/dL Magnesium (1.6-2.3) mg/dL Alkaline Phosphatase (38-126) U/L Total Protein (6.3-8.2) g/dL Albumin (3.5-5.0) g/dL Arterial Blood Potassium (3.4-4.5) mmol/L Arterial Blood Glucose (75-99) mg/dL Crossmatch 01/10/18 01/10/18 01/10/18 Range/Units 01:55 03:01 04:05 WBC (3.8-10.6) k/uL RBC (4.30-5.90) m/uL Hgb (13.0-17.5) gm/dL Hct (39.0-53.0) % Plt Count (150-450) k/uL Neutrophils # (1.3-7.7) k/uL Lymphocytes # (1.0-4.8) k/uL Monocytes # (0-1.0) k/uL INR (<1.2) ABG pH (7.35-7.45) ABG pCO2 (35-45) mmHg ABG pO2 (83-108) mmHg ABG HCO3 (21-25) mmol/L ABG Total CO2 (19-24) mmol/L ABG O2 Saturation (94-97) % ABG Hematocrit (34.0-46.0) % ABG Sodium (135-146) mmol/L ABG Potassium (3.4-4.5) mmol/L ABG Ionized Calcium (4.5-5.3) mg/dL ABG Glucose (75-99) mg/dL ABG Lactic Acid (0.5-1.6) mmol/L Hemoglobin (13.0-17.5) gm/dL Sodium (137-145) mmol/L Potassium (3.5-5.1) mmol/L BUN (9-20) mg/dL Glucose (74-99) mg/dL POC Glucose (mg/dL) 147 H 139 H 127 H (75-99) mg/dL Calcium (8.4-10.2) mg/dL Magnesium (1.6-2.3) mg/dL Alkaline Phosphatase (38-126) U/L Total Protein (6.3-8.2) g/dL Albumin (3.5-5.0) g/dL Arterial Blood Potassium (3.4-4.5) mmol/L Arterial Blood Glucose (75-99) mg/dL Crossmatch 01/10/18 01/10/18 01/10/18 Range/Units 04:57 05:12 05:50 WBC 13.3 H (3.8-10.6) k/uL RBC 3.84 L (4.30-5.90) m/uL Hgb 11.7 L (13.0-17.5) gm/dL Hct 34.4 L (39.0-53.0) % Plt Count (150-450) k/uL Neutrophils # 11.2 H (1.3-7.7) k/uL Lymphocytes # 0.7 L (1.0-4.8) k/uL Monocytes # 1.1 H (0-1.0) k/uL INR (<1.2) ABG pH (7.35-7.45) ABG pCO2 (35-45) mmHg ABG pO2 63 L (83-108) mmHg ABG HCO3 (21-25) mmol/L ABG Total CO2 27 H (19-24) mmol/L ABG O2 Saturation 93.2 L (94-97) % ABG Hematocrit (34.0-46.0) % ABG Sodium (135-146) mmol/L ABG Potassium (3.4-4.5) mmol/L ABG Ionized Calcium (4.5-5.3) mg/dL ABG Glucose (75-99) mg/dL ABG Lactic Acid (0.5-1.6) mmol/L Hemoglobin (13.0-17.5) gm/dL Sodium (137-145) mmol/L Potassium (3.5-5.1) mmol/L BUN (9-20) mg/dL Glucose (74-99) mg/dL POC Glucose (mg/dL) 118 H (75-99) mg/dL Calcium (8.4-10.2) mg/dL Magnesium (1.6-2.3) mg/dL Alkaline Phosphatase (38-126) U/L Total Protein (6.3-8.2) g/dL Albumin (3.5-5.0) g/dL Arterial Blood Potassium (3.4-4.5) mmol/L Arterial Blood Glucose (75-99) mg/dL Crossmatch 01/10/18 01/10/18 01/10/18 Range/Units 05:50 05:56 06:51 WBC (3.8-10.6) k/uL RBC (4.30-5.90) m/uL Hgb (13.0-17.5) gm/dL Hct (39.0-53.0) % Plt Count (150-450) k/uL Neutrophils # (1.3-7.7) k/uL Lymphocytes # (1.0-4.8) k/uL Monocytes # (0-1.0) k/uL INR (<1.2) ABG pH (7.35-7.45) ABG pCO2 (35-45) mmHg ABG pO2 (83-108) mmHg ABG HCO3 (21-25) mmol/L ABG Total CO2 (19-24) mmol/L ABG O2 Saturation (94-97) % ABG Hematocrit (34.0-46.0) % ABG Sodium (135-146) mmol/L ABG Potassium (3.4-4.5) mmol/L ABG Ionized Calcium (4.5-5.3) mg/dL ABG Glucose (75-99) mg/dL ABG Lactic Acid (0.5-1.6) mmol/L Hemoglobin (13.0-17.5) gm/dL Sodium (137-145) mmol/L Potassium (3.5-5.1) mmol/L BUN 22 H (9-20) mg/dL Glucose 109 H (74-99) mg/dL POC Glucose (mg/dL) 116 H 117 H (75-99) mg/dL Calcium 8.3 L (8.4-10.2) mg/dL Magnesium (1.6-2.3) mg/dL Alkaline Phosphatase 31 L (38-126) U/L Total Protein 5.0 L (6.3-8.2) g/dL Albumin 3.0 L (3.5-5.0) g/dL Arterial Blood Potassium (3.4-4.5) mmol/L Arterial Blood Glucose (75-99) mg/dL Crossmatch 01/10/18 01/10/18 01/10/18 Range/Units 08:05 08:27 08:51 WBC (3.8-10.6) k/uL RBC (4.30-5.90) m/uL Hgb (13.0-17.5) gm/dL Hct (39.0-53.0) % Plt Count (150-450) k/uL Neutrophils # (1.3-7.7) k/uL Lymphocytes # (1.0-4.8) k/uL Monocytes # (0-1.0) k/uL INR (<1.2) ABG pH (7.35-7.45) ABG pCO2 (35-45) mmHg ABG pO2 72 L (83-108) mmHg ABG HCO3 26 H (21-25) mmol/L ABG Total CO2 27 H (19-24) mmol/L ABG O2 Saturation (94-97) % ABG Hematocrit (34.0-46.0) % ABG Sodium (135-146) mmol/L ABG Potassium (3.4-4.5) mmol/L ABG Ionized Calcium (4.5-5.3) mg/dL ABG Glucose (75-99) mg/dL ABG Lactic Acid (0.5-1.6) mmol/L Hemoglobin (13.0-17.5) gm/dL Sodium (137-145) mmol/L Potassium (3.5-5.1) mmol/L BUN (9-20) mg/dL Glucose (74-99) mg/dL POC Glucose (mg/dL) 124 H 112 H (75-99) mg/dL Calcium (8.4-10.2) mg/dL Magnesium (1.6-2.3) mg/dL Alkaline Phosphatase (38-126) U/L Total Protein (6.3-8.2) g/dL Albumin (3.5-5.0) g/dL Arterial Blood Potassium (3.4-4.5) mmol/L Arterial Blood Glucose (75-99) mg/dL Crossmatch Assessment and Plan Plan: Assessment: #1. Symptomatic multivessel coronary artery disease, status post three-vessel coronary artery bypass grafting, RODRIGUES to LAD, SVG to the PDA and circumflex, with intraoperative CAYLA and exclusion of left atrial appendage with #32 Atriclip , postop day 1 #2. History of coronary artery disease, with 3 previous myocardial infarctions , and previous stenting #3. Lifetime nonsmoker #4. Diabetes mellitus type 2 #5. Hypertension, hyperlipidemia #6. Ischemic cardiomyopathy, with reduced left ventricular systolic function with EF of 35-40% #7. History of CVA/TIA #8. Benign prostatic hypertrophy #9. Anxiety/depression Plan: Patient was successfully extubated at 0845, continue with pulmonary toileting, deep breathing and coughing, incentive spirometry use. Patient received a dose of IV Lasix per CT surgery, continue close hemodynamic monitoring, pain control , urine output, chest tube output. Today's chest x-ray was reviewed, showed small bilateral pleural effusions, and bibasilar consolidation, possibly bibasilar adjacent atelectasis. We'll continue to closely follow I performed a history & physical examination of the patient and discussed their management with my nurse practitioner, Jazmin Day. I reviewed the nurse practitioner's note and agree with the documented findings and plan of care. Lung sounds are clear. The findings and the impression was discussed with the patient. I attest to the documentation by the nurse practitioner. Critical care time is over 30 minutes Time with Patient: Greater than 30
[2018-01-10 09:48] LABS: Glucose,Whole Blood 114 mg/dL (75-99)
--- NOTE | 2018-01-10 09:59 | P.PN ---
Subjective Progress Note Date: 01/10/18 Principal diagnosis: Unstable angina. Triple vessel coronary artery disease. Previous myocardial infarction with stent placement, insulin-dependent diabetes mellitus with preoperative hemoglobin A1c 6.8%, hypertension, hyperlipidemia, and chronic systolic heart failure with ejection fraction 35-40%, obesity. POD #1 coronary bypass grafting 3 with left internal mammary to the left anterior descending artery, reverse saphenous vein graft off the aorta to the circumflex artery and the posterior descending artery with left greater saphenous vein endoscopic vein harvesting. Clip ligation of the left atrial appendage with a #35 mm AtriClip. Intraoperative transesophageal echocardiogram. The patient is currently lying in bed in no acute distress. Was just recently extubated at 08:45 this morning. He does complain of some chest discomfort. He is currently stable on Cleviprex. Primacor was weaned off by 1 AM this morning. He received IV Lasix last night as well as this morning. Objective - Vital Signs Vital signs: Vital Signs Temp 98.6 F 01/10/18 00:00 Pulse 62 01/10/18 07:43 Resp 24 01/10/18 07:43 BP 119/54 01/10/18 04:00 Pulse Ox 94 L 01/10/18 07:00 Intake & Output 01/09/18 01/10/18 01/10/18 18:59 06:59 18:59 Intake Total 942.013 2363.536 131.067 Output Total 2055 1514 105 Balance -1582.175 342.536 26.067 Weight 113 kg 115.5 kg Intake: IV 467 1407 89 ACETAMINOPHEN IV (For NPO 200 ) 1,000 mg In Empty Bag 1 bag @ 400 mls/hr IVPB Q6HR [facility] Rx#:[id number] Lactated Ringers 1,000 ml 250 650 50 @ 50 mls/hr IV .Q20H [facility] Rx#:[id number] ceFAZolin 2,000 mg In 20 Sodium Chloride 0.9% 30 ml @ Per Protocol IVPB ONCE ONE Rx#:[id number] co/ci 170 420 30 pressure bag 45 117 9 Intake, IV Titration 5.825 449.536 42.067 Amount Clevidipine Butyrate 25 148.000 42.067 mg In Empty Bag 1 bag @ 1 MG/HR 2 mls/hr IV .Q24H [facility] Rx#:[id number] Insulin Regular 100 unit 5.825 59.659 In Sodium Chloride 0.9% 100 ml @ Per Protocol IV .Q0M [facility] Rx#:[id number] Milrinone-D5w Pmx 20 mg 84.468 In Dextrose/Water 1 100ml .bag @ Per Protocol IV . Q0M [facility] Rx#:[id number] Propofol 1,000 mg In 157.409 Empty Bag 1 bag @ Titrate IV .Q0M [facility] Rx#: [id number] Output: Chest Tube Drainage 132 197 30 Left Pleural/Mediastinal 132 197 30 Urine 923 1317 75 Estimated Blood Loss 1000 Other: Voiding Method Indwelling Catheter Indwelling Catheter ABP, PAP, CO, CI - Last Documented Arterial Blood Pressure 150/46 Pulmonary Artery Pressure 36/16 Cardiac Output 5.7 Cardiac Index 2.5 - Constitutional General appearance: Present: cooperative, no acute distress, obese - Respiratory Details: Lungs sounds diminished bilaterally. Respirations even, nonlabored. Currently on 10 L high flow nasal cannula with oxygen saturation 93%. Mediastinal/left pleural chest tube to continuous wall suction, 140 mL serosanguineous drainage overnight, 300 mL since surgery. No air leak present. - Cardiovascular Details: S1, S2 present. Slow but regular rate and rhythm, sinus rhythm on telemetry. A /V epicardial pacemakers present, connected to generator, VVI mode with a backup rate of 40 bpm. Sternum stable. Palpable peripheral pulses bilaterally. No edema present. No calf pain or tenderness noted. Right internal jugular [place]ordis, right radial arterial line present. Last CO/CI 5.7/2.5 on no inotropes. Heart hugger in place patient demonstrating appropriate use. Antiembolism stockings, SCDs present. - Gastrointestinal Gastrointestinal Comment(s): Abdomen soft, nontender, nondistended, obese. Hypoactive bowel sounds present 4 quadrants. Tolerating oral intake yet. - Genitourinary Genitourinary Comment(s): [place] present draining clear, yellow urine. Output 50-75 mL/h overnight with 900 mL output after IV Lasix given. - Integumentary Integumentary Comment(s): Skin is warm and dry with evidence of good perfusion anterior chest incision well approximated covered with dry intact dressing. Left lower extremity EVH site well approximated. - Neurologic Neurologic: Present: CNII-XII intact - Musculoskeletal Musculoskeletal: Present: generalized weakness, strength equal bilaterally - Psychiatric Psychiatric: Present: A&O x's 3, appropriate affect, intact judgment & insight - Allied health notes Allied health notes reviewed: nursing - Labs CBC & Chem 7: 01/10/18 05:50 01/10/18 05:50 Labs: Abnormal Lab Results - Last 24 Hours (Table) 01/04/18 01/09/18 01/09/18 Range/Units 09:05 10:12 10:50 WBC (3.8-10.6) k/uL RBC (4.30-5.90) m/uL Hgb (13.0-17.5) gm/dL Hct (39.0-53.0) % Plt Count (150-450) k/uL Neutrophils # (1.3-7.7) k/uL Lymphocytes # (1.0-4.8) k/uL Monocytes # (0-1.0) k/uL INR (<1.2) ABG pH 7.33 L (7.35-7.45) ABG pCO2 50 H (35-45) mmHg ABG pO2 162 H (83-108) mmHg ABG HCO3 26 H (21-25) mmol/L ABG Total CO2 27 H 28 H (19-24) mmol/L ABG O2 Saturation 97.9 H 99.5 H (94-97) % ABG Hematocrit 30 L (34.0-46.0) % ABG Sodium 134 L (135-146) mmol/L ABG Potassium 5.2 H (3.4-4.5) mmol/L ABG Ionized Calcium 4.3 L (4.5-5.3) mg/dL ABG Glucose 113 H 189 H (75-99) mg/dL ABG Lactic Acid (0.5-1.6) mmol/L Hemoglobin 12.9 L 9.7 L (13.0-17.5) gm/dL Sodium (137-145) mmol/L Potassium (3.5-5.1) mmol/L BUN (9-20) mg/dL Glucose (74-99) mg/dL POC Glucose (mg/dL) (75-99) mg/dL Calcium (8.4-10.2) mg/dL Magnesium (1.6-2.3) mg/dL Alkaline Phosphatase (38-126) U/L Total Protein (6.3-8.2) g/dL Albumin (3.5-5.0) g/dL Arterial Blood Potassium 5.2 H (3.4-4.5) mmol/L Arterial Blood Glucose 113 H 189 H (75-99) mg/dL Crossmatch See Detail 01/09/18 01/09/18 01/09/18 Range/Units 11:21 11:47 12:43 WBC (3.8-10.6) k/uL RBC (4.30-5.90) m/uL Hgb (13.0-17.5) gm/dL Hct (39.0-53.0) % Plt Count (150-450) k/uL Neutrophils # (1.3-7.7) k/uL Lymphocytes # (1.0-4.8) k/uL Monocytes # (0-1.0) k/uL INR (<1.2) ABG pH (7.35-7.45) ABG pCO2 (35-45) mmHg ABG pO2 273 H 214 H 218 H (83-108) mmHg ABG HCO3 26 H (21-25) mmol/L ABG Total CO2 27 H 27 H 26 H (19-24) mmol/L ABG O2 Saturation 100.0 H 99.8 H 99.8 H (94-97) % ABG Hematocrit 31 L 30 L 32 L (34.0-46.0) % ABG Sodium 134 L (135-146) mmol/L ABG Potassium 5.3 H 5.2 H 4.6 H (3.4-4.5) mmol/L ABG Ionized Calcium 4.3 L 4.3 L 4.4 L (4.5-5.3) mg/dL ABG Glucose 190 H 191 H 180 H (75-99) mg/dL ABG Lactic Acid 1.9 H 2.4 H* (0.5-1.6) mmol/L Hemoglobin 10.0 L 9.8 L 10.6 L (13.0-17.5) gm/dL Sodium (137-145) mmol/L Potassium (3.5-5.1) mmol/L BUN (9-20) mg/dL Glucose (74-99) mg/dL POC Glucose (mg/dL) (75-99) mg/dL Calcium (8.4-10.2) mg/dL Magnesium (1.6-2.3) mg/dL Alkaline Phosphatase (38-126) U/L Total Protein (6.3-8.2) g/dL Albumin (3.5-5.0) g/dL Arterial Blood Potassium 5.3 H 5.2 H 4.6 H (3.4-4.5) mmol/L Arterial Blood Glucose 190 H 191 H 180 H (75-99) mg/dL Crossmatch 01/09/18 01/09/18 01/09/18 Range/Units 13:42 13:42 13:42 WBC 11.9 H (3.8-10.6) k/uL RBC 3.67 L (4.30-5.90) m/uL Hgb 10.8 L D (13.0-17.5) gm/dL Hct 33.4 L (39.0-53.0) % Plt Count 144 L (150-450) k/uL Neutrophils # 10.4 H (1.3-7.7) k/uL Lymphocytes # 0.6 L (1.0-4.8) k/uL Monocytes # (0-1.0) k/uL INR 1.3 H (<1.2) ABG pH (7.35-7.45) ABG pCO2 (35-45) mmHg ABG pO2 (83-108) mmHg ABG HCO3 (21-25) mmol/L ABG Total CO2 (19-24) mmol/L ABG O2 Saturation (94-97) % ABG Hematocrit (34.0-46.0) % ABG Sodium (135-146) mmol/L ABG Potassium (3.4-4.5) mmol/L ABG Ionized Calcium (4.5-5.3) mg/dL ABG Glucose (75-99) mg/dL ABG Lactic Acid (0.5-1.6) mmol/L Hemoglobin (13.0-17.5) gm/dL Sodium (137-145) mmol/L Potassium (3.5-5.1) mmol/L BUN (9-20) mg/dL Glucose 144 H (74-99) mg/dL POC Glucose (mg/dL) (75-99) mg/dL Calcium 8.2 L (8.4-10.2) mg/dL Magnesium 2.4 H (1.6-2.3) mg/dL Alkaline Phosphatase 26 L (38-126) U/L Total Protein 4.4 L (6.3-8.2) g/dL Albumin 2.6 L (3.5-5.0) g/dL Arterial Blood Potassium (3.4-4.5) mmol/L Arterial Blood Glucose (75-99) mg/dL Crossmatch 01/09/18 01/09/18 01/09/18 Range/Units 14:07 15:08 15:12 WBC (3.8-10.6) k/uL RBC (4.30-5.90) m/uL Hgb (13.0-17.5) gm/dL Hct (39.0-53.0) % Plt Count (150-450) k/uL Neutrophils # (1.3-7.7) k/uL Lymphocytes # (1.0-4.8) k/uL Monocytes # (0-1.0) k/uL INR (<1.2) ABG pH 7.29 L 7.29 L (7.35-7.45) ABG pCO2 57 H 56 H (35-45) mmHg ABG pO2 71 L 60 L (83-108) mmHg ABG HCO3 27 H 27 H (21-25) mmol/L ABG Total CO2 29 H 29 H (19-24) mmol/L ABG O2 Saturation 92.5 L 88.3 L (94-97) % ABG Hematocrit (34.0-46.0) % ABG Sodium (135-146) mmol/L ABG Potassium (3.4-4.5) mmol/L ABG Ionized Calcium (4.5-5.3) mg/dL ABG Glucose (75-99) mg/dL ABG Lactic Acid (0.5-1.6) mmol/L Hemoglobin (13.0-17.5) gm/dL Sodium (137-145) mmol/L Potassium (3.5-5.1) mmol/L BUN (9-20) mg/dL Glucose (74-99) mg/dL POC Glucose (mg/dL) 137 H (75-99) mg/dL Calcium (8.4-10.2) mg/dL Magnesium (1.6-2.3) mg/dL Alkaline Phosphatase (38-126) U/L Total Protein (6.3-8.2) g/dL Albumin (3.5-5.0) g/dL Arterial Blood Potassium (3.4-4.5) mmol/L Arterial Blood Glucose (75-99) mg/dL Crossmatch 01/09/18 01/09/18 01/09/18 Range/Units 15:49 16:20 16:50 WBC 14.2 H (3.8-10.6) k/uL RBC 3.99 L (4.30-5.90) m/uL Hgb 11.8 L (13.0-17.5) gm/dL Hct 36.0 L (39.0-53.0) % Plt Count (150-450) k/uL Neutrophils # 12.6 H (1.3-7.7) k/uL Lymphocytes # 0.6 L (1.0-4.8) k/uL Monocytes # (0-1.0) k/uL INR (<1.2) ABG pH (7.35-7.45) ABG pCO2 (35-45) mmHg ABG pO2 78 L (83-108) mmHg ABG HCO3 26 H (21-25) mmol/L ABG Total CO2 28 H (19-24) mmol/L ABG O2 Saturation (94-97) % ABG Hematocrit (34.0-46.0) % ABG Sodium (135-146) mmol/L ABG Potassium (3.4-4.5) mmol/L ABG Ionized Calcium (4.5-5.3) mg/dL ABG Glucose (75-99) mg/dL ABG Lactic Acid (0.5-1.6) mmol/L Hemoglobin (13.0-17.5) gm/dL Sodium (137-145) mmol/L Potassium (3.5-5.1) mmol/L BUN (9-20) mg/dL Glucose (74-99) mg/dL POC Glucose (mg/dL) 135 H (75-99) mg/dL Calcium (8.4-10.2) mg/dL Magnesium (1.6-2.3) mg/dL Alkaline Phosphatase (38-126) U/L Total Protein (6.3-8.2) g/dL Albumin (3.5-5.0) g/dL Arterial Blood Potassium (3.4-4.5) mmol/L Arterial Blood Glucose (75-99) mg/dL Crossmatch 01/09/18 01/09/18 01/09/18 Range/Units 16:51 18:14 19:01 WBC (3.8-10.6) k/uL RBC (4.30-5.90) m/uL Hgb (13.0-17.5) gm/dL Hct (39.0-53.0) % Plt Count (150-450) k/uL Neutrophils # (1.3-7.7) k/uL Lymphocytes # (1.0-4.8) k/uL Monocytes # (0-1.0) k/uL INR (<1.2) ABG pH (7.35-7.45) ABG pCO2 (35-45) mmHg ABG pO2 (83-108) mmHg ABG HCO3 (21-25) mmol/L ABG Total CO2 (19-24) mmol/L ABG O2 Saturation (94-97) % ABG Hematocrit (34.0-46.0) % ABG Sodium (135-146) mmol/L ABG Potassium (3.4-4.5) mmol/L ABG Ionized Calcium (4.5-5.3) mg/dL ABG Glucose (75-99) mg/dL ABG Lactic Acid (0.5-1.6) mmol/L Hemoglobin (13.0-17.5) gm/dL Sodium (137-145) mmol/L Potassium (3.5-5.1) mmol/L BUN (9-20) mg/dL Glucose (74-99) mg/dL POC Glucose (mg/dL) 124 H 141 H 139 H (75-99) mg/dL Calcium (8.4-10.2) mg/dL Magnesium (1.6-2.3) mg/dL Alkaline Phosphatase (38-126) U/L Total Protein (6.3-8.2) g/dL Albumin (3.5-5.0) g/dL Arterial Blood Potassium (3.4-4.5) mmol/L Arterial Blood Glucose (75-99) mg/dL Crossmatch 01/09/18 01/09/18 01/09/18 Range/Units 19:30 19:30 20:07 WBC 12.7 H (3.8-10.6) k/uL RBC 3.86 L (4.30-5.90) m/uL Hgb 11.4 L (13.0-17.5) gm/dL Hct 34.8 L (39.0-53.0) % Plt Count (150-450) k/uL Neutrophils # 11.5 H (1.3-7.7) k/uL Lymphocytes # 0.4 L (1.0-4.8) k/uL Monocytes # (0-1.0) k/uL INR (<1.2) ABG pH (7.35-7.45) ABG pCO2 (35-45) mmHg ABG pO2 (83-108) mmHg ABG HCO3 (21-25) mmol/L ABG Total CO2 (19-24) mmol/L ABG O2 Saturation (94-97) % ABG Hematocrit (34.0-46.0) % ABG Sodium (135-146) mmol/L ABG Potassium (3.4-4.5) mmol/L ABG Ionized Calcium (4.5-5.3) mg/dL ABG Glucose (75-99) mg/dL ABG Lactic Acid (0.5-1.6) mmol/L Hemoglobin (13.0-17.5) gm/dL Sodium 135 L (137-145) mmol/L Potassium 5.3 H (3.5-5.1) mmol/L BUN (9-20) mg/dL Glucose 153 H (74-99) mg/dL POC Glucose (mg/dL) 178 H (75-99) mg/dL Calcium 8.3 L (8.4-10.2) mg/dL Magnesium (1.6-2.3) mg/dL Alkaline Phosphatase (38-126) U/L Total Protein (6.3-8.2) g/dL Albumin (3.5-5.0) g/dL Arterial Blood Potassium (3.4-4.5) mmol/L Arterial Blood Glucose (75-99) mg/dL Crossmatch 01/09/18 01/09/18 01/09/18 Range/Units 21:01 21:55 21:56 WBC (3.8-10.6) k/uL RBC (4.30-5.90) m/uL Hgb (13.0-17.5) gm/dL Hct (39.0-53.0) % Plt Count (150-450) k/uL Neutrophils # (1.3-7.7) k/uL Lymphocytes # (1.0-4.8) k/uL Monocytes # (0-1.0) k/uL INR (<1.2) ABG pH 7.33 L (7.35-7.45) ABG pCO2 47 H (35-45) mmHg ABG pO2 65 L (83-108) mmHg ABG HCO3 (21-25) mmol/L ABG Total CO2 26 H (19-24) mmol/L ABG O2 Saturation 91.9 L (94-97) % ABG Hematocrit (34.0-46.0) % ABG Sodium (135-146) mmol/L ABG Potassium (3.4-4.5) mmol/L ABG Ionized Calcium (4.5-5.3) mg/dL ABG Glucose (75-99) mg/dL ABG Lactic Acid (0.5-1.6) mmol/L Hemoglobin (13.0-17.5) gm/dL Sodium (137-145) mmol/L Potassium (3.5-5.1) mmol/L BUN (9-20) mg/dL Glucose (74-99) mg/dL POC Glucose (mg/dL) 184 H 176 H (75-99) mg/dL Calcium (8.4-10.2) mg/dL Magnesium (1.6-2.3) mg/dL Alkaline Phosphatase (38-126) U/L Total Protein (6.3-8.2) g/dL Albumin (3.5-5.0) g/dL Arterial Blood Potassium (3.4-4.5) mmol/L Arterial Blood Glucose (75-99) mg/dL Crossmatch 01/09/18 01/09/18 01/10/18 Range/Units 23:01 23:56 00:49 WBC (3.8-10.6) k/uL RBC (4.30-5.90) m/uL Hgb (13.0-17.5) gm/dL Hct (39.0-53.0) % Plt Count (150-450) k/uL Neutrophils # (1.3-7.7) k/uL Lymphocytes # (1.0-4.8) k/uL Monocytes # (0-1.0) k/uL INR (<1.2) ABG pH (7.35-7.45) ABG pCO2 (35-45) mmHg ABG pO2 (83-108) mmHg ABG HCO3 (21-25) mmol/L ABG Total CO2 (19-24) mmol/L ABG O2 Saturation (94-97) % ABG Hematocrit (34.0-46.0) % ABG Sodium (135-146) mmol/L ABG Potassium (3.4-4.5) mmol/L ABG Ionized Calcium (4.5-5.3) mg/dL ABG Glucose (75-99) mg/dL ABG Lactic Acid (0.5-1.6) mmol/L Hemoglobin (13.0-17.5) gm/dL Sodium (137-145) mmol/L Potassium (3.5-5.1) mmol/L BUN (9-20) mg/dL Glucose (74-99) mg/dL POC Glucose (mg/dL) 177 H 172 H 167 H (75-99) mg/dL Calcium (8.4-10.2) mg/dL Magnesium (1.6-2.3) mg/dL Alkaline Phosphatase (38-126) U/L Total Protein (6.3-8.2) g/dL Albumin (3.5-5.0) g/dL Arterial Blood Potassium (3.4-4.5) mmol/L Arterial Blood Glucose (75-99) mg/dL Crossmatch 01/10/18 01/10/18 01/10/18 Range/Units 01:55 03:01 04:05 WBC (3.8-10.6) k/uL RBC (4.30-5.90) m/uL Hgb (13.0-17.5) gm/dL Hct (39.0-53.0) % Plt Count (150-450) k/uL Neutrophils # (1.3-7.7) k/uL Lymphocytes # (1.0-4.8) k/uL Monocytes # (0-1.0) k/uL INR (<1.2) ABG pH (7.35-7.45) ABG pCO2 (35-45) mmHg ABG pO2 (83-108) mmHg ABG HCO3 (21-25) mmol/L ABG Total CO2 (19-24) mmol/L ABG O2 Saturation (94-97) % ABG Hematocrit (34.0-46.0) % ABG Sodium (135-146) mmol/L ABG Potassium (3.4-4.5) mmol/L ABG Ionized Calcium (4.5-5.3) mg/dL ABG Glucose (75-99) mg/dL ABG Lactic Acid (0.5-1.6) mmol/L Hemoglobin (13.0-17.5) gm/dL Sodium (137-145) mmol/L Potassium (3.5-5.1) mmol/L BUN (9-20) mg/dL Glucose (74-99) mg/dL POC Glucose (mg/dL) 147 H 139 H 127 H (75-99) mg/dL Calcium (8.4-10.2) mg/dL Magnesium (1.6-2.3) mg/dL Alkaline Phosphatase (38-126) U/L Total Protein (6.3-8.2) g/dL Albumin (3.5-5.0) g/dL Arterial Blood Potassium (3.4-4.5) mmol/L Arterial Blood Glucose (75-99) mg/dL Crossmatch 01/10/18 01/10/18 01/10/18 Range/Units 04:57 05:12 05:50 WBC 13.3 H (3.8-10.6) k/uL RBC 3.84 L (4.30-5.90) m/uL Hgb 11.7 L (13.0-17.5) gm/dL Hct 34.4 L (39.0-53.0) % Plt Count (150-450) k/uL Neutrophils # 11.2 H (1.3-7.7) k/uL Lymphocytes # 0.7 L (1.0-4.8) k/uL Monocytes # 1.1 H (0-1.0) k/uL INR (<1.2) ABG pH (7.35-7.45) ABG pCO2 (35-45) mmHg ABG pO2 63 L (83-108) mmHg ABG HCO3 (21-25) mmol/L ABG Total CO2 27 H (19-24) mmol/L ABG O2 Saturation 93.2 L (94-97) % ABG Hematocrit (34.0-46.0) % ABG Sodium (135-146) mmol/L ABG Potassium (3.4-4.5) mmol/L ABG Ionized Calcium (4.5-5.3) mg/dL ABG Glucose (75-99) mg/dL ABG Lactic Acid (0.5-1.6) mmol/L Hemoglobin (13.0-17.5) gm/dL Sodium (137-145) mmol/L Potassium (3.5-5.1) mmol/L BUN (9-20) mg/dL Glucose (74-99) mg/dL POC Glucose (mg/dL) 118 H (75-99) mg/dL Calcium (8.4-10.2) mg/dL Magnesium (1.6-2.3) mg/dL Alkaline Phosphatase (38-126) U/L Total Protein (6.3-8.2) g/dL Albumin (3.5-5.0) g/dL Arterial Blood Potassium (3.4-4.5) mmol/L Arterial Blood Glucose (75-99) mg/dL Crossmatch 01/10/18 01/10/18 01/10/18 Range/Units 05:50 05:56 06:51 WBC (3.8-10.6) k/uL RBC (4.30-5.90) m/uL Hgb (13.0-17.5) gm/dL Hct (39.0-53.0) % Plt Count (150-450) k/uL Neutrophils # (1.3-7.7) k/uL Lymphocytes # (1.0-4.8) k/uL Monocytes # (0-1.0) k/uL INR (<1.2) ABG pH (7.35-7.45) ABG pCO2 (35-45) mmHg ABG pO2 (83-108) mmHg ABG HCO3 (21-25) mmol/L ABG Total CO2 (19-24) mmol/L ABG O2 Saturation (94-97) % ABG Hematocrit (34.0-46.0) % ABG Sodium (135-146) mmol/L ABG Potassium (3.4-4.5) mmol/L ABG Ionized Calcium (4.5-5.3) mg/dL ABG Glucose (75-99) mg/dL ABG Lactic Acid (0.5-1.6) mmol/L Hemoglobin (13.0-17.5) gm/dL Sodium (137-145) mmol/L Potassium (3.5-5.1) mmol/L BUN 22 H (9-20) mg/dL Glucose 109 H (74-99) mg/dL POC Glucose (mg/dL) 116 H 117 H (75-99) mg/dL Calcium 8.3 L (8.4-10.2) mg/dL Magnesium (1.6-2.3) mg/dL Alkaline Phosphatase 31 L (38-126) U/L Total Protein 5.0 L (6.3-8.2) g/dL Albumin 3.0 L (3.5-5.0) g/dL Arterial Blood Potassium (3.4-4.5) mmol/L Arterial Blood Glucose (75-99) mg/dL Crossmatch 01/10/18 01/10/18 01/10/18 Range/Units 08:05 08:27 08:51 WBC (3.8-10.6) k/uL RBC (4.30-5.90) m/uL Hgb (13.0-17.5) gm/dL Hct (39.0-53.0) % Plt Count (150-450) k/uL Neutrophils # (1.3-7.7) k/uL Lymphocytes # (1.0-4.8) k/uL Monocytes # (0-1.0) k/uL INR (<1.2) ABG pH (7.35-7.45) ABG pCO2 (35-45) mmHg ABG pO2 72 L (83-108) mmHg ABG HCO3 26 H (21-25) mmol/L ABG Total CO2 27 H (19-24) mmol/L ABG O2 Saturation (94-97) % ABG Hematocrit (34.0-46.0) % ABG Sodium (135-146) mmol/L ABG Potassium (3.4-4.5) mmol/L ABG Ionized Calcium (4.5-5.3) mg/dL ABG Glucose (75-99) mg/dL ABG Lactic Acid (0.5-1.6) mmol/L Hemoglobin (13.0-17.5) gm/dL Sodium (137-145) mmol/L Potassium (3.5-5.1) mmol/L BUN (9-20) mg/dL Glucose (74-99) mg/dL POC Glucose (mg/dL) 124 H 112 H (75-99) mg/dL Calcium (8.4-10.2) mg/dL Magnesium (1.6-2.3) mg/dL Alkaline Phosphatase (38-126) U/L Total Protein (6.3-8.2) g/dL Albumin (3.5-5.0) g/dL Arterial Blood Potassium (3.4-4.5) mmol/L Arterial Blood Glucose (75-99) mg/dL Crossmatch - Imaging and Cardiology Chest x-ray: report reviewed, image reviewed Assessment and Plan (1) Coronary artery disease Current Visit: Yes Status: Chronic Code(s): I25.10 - ATHSCL HEART DISEASE OF [place] CORONARY ARTERY W/O ANG PCTRS SNOMED Code(s): 16972895 (2) History of heart artery stent Current Visit: Yes Status: Chronic Code(s): Z95.5 - PRESENCE OF CORONARY ANGIOPLASTY IMPLANT AND GRAFT SNOMED Code(s): 361146024 (3) Hyperlipidemia Current Visit: Yes Status: Chronic Code(s): E78.5 - HYPERLIPIDEMIA, UNSPECIFIED SNOMED Code(s): 61232321 (4) Hypertension Current Visit: Yes Status: Chronic Code(s): I10 - ESSENTIAL (PRIMARY) HYPERTENSION SNOMED Code(s): 15088427 (5) Insulin dependent diabetes mellitus Current Visit: Yes Status: Chronic Code(s): E11.9 - TYPE 2 DIABETES MELLITUS WITHOUT COMPLICATIONS; Z79.4 - SKILLED NURSING (CURRENT) USE OF INSULIN SNOMED Code(s): 15592717 (6) Obesity Current Visit: Yes Status: Chronic Code(s): E66.9 - OBESITY, UNSPECIFIED SNOMED Code(s): 523293230 (7) Previous myocardial infarction older than 8 weeks Current Visit: No Status: Resolved Code(s): I25.2 - OLD MYOCARDIAL INFARCTION SNOMED Code(s): 8216661 Plan: 1. Continue aspirin, statin, Plavix, subcu heparin, beta jack. Will increase beta jack therapy as tolerated. 2. Wean O2 as tolerated. Encourage incentive spirometry use 10 times every hour. 3. Wean Cleviprex. Will add ALICJA inhibitor. 4. Discontinue [place]-Callie catheter. Cannot Cord[place] to continuous CVP monitoring. 5. Bronchodilators per Dr. [place]. 6. Will monitor daily labs and x-rays. 7. GI/DVT prophylaxis. 8. Insulin management per primary care service. 9. Pain management with current medication regimen. 10. Increase activity, up to chair. PT/OT/cardiac rehab ordered. 11. More recommendations to follow. Time with Patient: Greater than 30
[2018-01-10] MEDS: ceFAZolin IN SWFI 2 GM/20 ML SYRINGE IVP SCH (10:16)
[2018-01-10 11:05] LABS: Glucose,Whole Blood 122 mg/dL (75-99)
[2018-01-10 11:45] LABS: Glucose,Whole Blood 118 mg/dL (75-99)
[2018-01-10] MEDS: LISINOPRIL 2.5 MG TAB PO SCH (12:26)
[2018-01-10] MEDS: KETOROLAC 30 MG/ML 1 ML VIAL IVP SCH ×2 (12:28→17:07)
[2018-01-10] MEDS ORDERED: BISACODYL 10 MG SUPP RECTAL PRN (12:55)
[2018-01-10] MEDS: LACTATED RINGERS 1,000 ML IV SCH (13:14)
[2018-01-10 13:18] LABS: Glucose,Whole Blood 123 mg/dL (75-99)
[2018-01-10 13:51] LABS: Glucose,Whole Blood 131 mg/dL (75-99)
[2018-01-10 16:14] LABS: Glucose,Whole Blood 102 mg/dL (75-99)
[2018-01-10] MEDS: INSULIN REGULAR 100 UNIT in SODIUM CHLORIDE 0.9% 100 ML IV SCH (17:13)
[2018-01-10 17:14] LABS: Glucose,Whole Blood 116 mg/dL (75-99)
[2018-01-10] MEDS ORDERED: METOPROLOL TARTRATE 12.5 MG TAB PO STA (18:08)
[2018-01-10 18:15] LABS: Glucose,Whole Blood 185 mg/dL (75-99)
[2018-01-10] MEDS: TAMSULOSIN 0.4 MG CAP.ER.24H PO SCH (19:02)
[2018-01-10 20:21] LABS: Glucose,Whole Blood 225 mg/dL (75-99)
[2018-01-10 20:46] LABS: Glucose,Whole Blood 213 mg/dL (75-99)
[2018-01-10] MEDS: SENNOSIDES-DOCUSATE SODIUM 1 EACH TAB PO SCH (21:54)
[2018-01-10] MEDS: HYDROcodone/APAP 5-325MG 1 EACH TAB PO PRN (21:54)
[2018-01-10] MEDS: CITALOPRAM HYDROBROMIDE 20 MG TAB PO SCH (21:54)
[2018-01-10] MEDS: METOPROLOL TARTRATE 12.5 MG TAB PO SCH (21:55)
[2018-01-10 22:06] LABS: Glucose,Whole Blood 145 mg/dL (75-99)
[2018-01-10] MEDS ORDERED: AMIODARONE 50 MG/ML 9 ML VIAL IV ONE (23:00)
[2018-01-10] MEDS ORDERED: DEXTROSE 5% IV ONE (23:00)
[2018-01-10] MEDS ORDERED: WATER IV ONE (23:00)
[2018-01-10 23:26] LABS: Glucose,Whole Blood 109 mg/dL (75-99)
[2018-01-11] MEDS ORDERED: HEPARIN SODIUM,PORCINE 5,000 UNIT/ML 1 ML VIAL ONE
[2018-01-11] MEDS ORDERED: KETOROLAC 30 MG/ML 1 ML VIAL ONE
[2018-01-11 03:32] LABS: Basophils % (A) 0 %; Eosinophils % (A) 0 %; HCT 30.1 % (39.0-53.0); HGB 10.2 gm/dL (13.0-17.5); Lymphocytes # (A) 0.8 k/uL (1.0-4.8); Lymphocytes % (A) 7 %; MCH 30.5 pg (25.0-35.0); MCHC 33.8 g/dL (31.0-37.0); MCV 90.3 fL (80.0-100.0); Mean Platelet Volume 8.7; Monocytes # (A) 0.8 k/uL (0-1.0); Monocytes % (A) 6 %; Neutrophils # (A) 10.8 k/uL (1.3-7.7); Neutrophils % (A) 86 %; Platelet Count 128 k/uL (150-450); RBC 3.34 m/uL (4.30-5.90); WBC 12.6 k/uL (3.8-10.6)
[2018-01-11 03:35] LABS: Ionized Calcium 4.7 mg/dL (4.5-5.3)
[2018-01-11 03:43] LABS: Glucose,Whole Blood 151 mg/dL (75-99)
[2018-01-11 03:43] LABS: Glucose,Whole Blood 164 mg/dL (75-99)
[2018-01-11 03:43] LABS: Glucose,Whole Blood 108 mg/dL (75-99)
[2018-01-11 03:43] LABS: Glucose,Whole Blood 154 mg/dL (75-99)
[2018-01-11 04:01] LABS: Calcium 7.9 mg/dL (8.4-10.2); Magnesium 2.5 mg/dL (1.6-2.3); Potassium 4.2 mmol/L (3.5-5.1); Total Bilirubin 0.6 mg/dL (0.2-1.3); Total Protein 4.9 g/dL (6.3-8.2)
[2018-01-11] MEDS: KETOROLAC 30 MG/ML 1 ML VIAL IVP SCH ×2 (04:44→06:40)
[2018-01-11] MEDS: HEPARIN SODIUM,PORCINE 5,000 UNIT/ML 1 ML VIAL SQ SCH ×4 (04:44→23:59)
[2018-01-11 05:09] LABS: Glucose,Whole Blood 99 mg/dL (75-99)
[2018-01-11 06:22] LABS: Glucose,Whole Blood 44 mg/dL (75-99)
[2018-01-11 06:22] LABS: Glucose,Whole Blood 125 mg/dL (75-99)
[2018-01-11] MEDS: LACTATED RINGERS 1,000 ML IV SCH (06:25)
[2018-01-11] MEDS ORDERED: AMIODARONE 450 MG in DEXTROSE 5% IN WATER 250 ML IV SCH ×2 (06:30)
[2018-01-11] MEDS: IPRATROPIUM-ALBUTEROL 3 ML NEB INHALATION SCH ×4 (07:25→19:09)
[2018-01-11 07:55] LABS: Glucose,Whole Blood 118 mg/dL (75-99)
[2018-01-11] MEDS: MUPIROCIN 2% OINT 22 GM TUBE NASAL SCH ×2 (08:01→20:08)
[2018-01-11] MEDS: METOPROLOL TARTRATE 12.5 MG TAB PO SCH ×3 (08:01→22:19)
[2018-01-11] MEDS: ATORVASTATIN 40 MG TAB PO SCH (08:02)
[2018-01-11] MEDS: PANTOPRAZOLE 40 MG/10 ML VIAL IVP SCH (08:02)
[2018-01-11] MEDS: ASPIRIN 325 MG TAB PO SCH (08:02)
--- NOTE | 2018-01-11 08:43 | P.PN ---
Subjective Progress Note Date: 01/11/18 Principal diagnosis: Status post bypass grafting Progress note dated 01/11/2018 72-year-old male status post three-vessel bypass grafting, postoperative day # 2. The patient has a previous history of CAD with previous myocardial infarctions. He is a lifetime nonsmoker has history of diabetes hypertension hyperlipidemia ischemic cardiopathy CVA BPH and anxiety/depression. The patient seemed to be progressing nicely. On nasal O2. We focused on the importance of deep breathing coughing clearing of secretions and use of incentive spirometer every hour. The patient denies any chest pain or chest discomfort. No shortness of breath difficulty breathing coughing wheezing or phlegm production. This patient took a bit longer to extubate. Doing reasonably well today. Seen by Dr. Liu today. Objective - Vital Signs Vital signs: Vital Signs Temp 99.0 F 01/11/18 00:00 Pulse 84 01/11/18 07:35 Resp 22 01/11/18 07:25 BP 87/42 01/11/18 04:00 Pulse Ox 94 L 01/11/18 07:00 Intake & Output 01/10/18 01/11/18 01/11/18 18:59 06:59 18:59 Intake Total 325.231 7342.071 72 Output Total 1795 830 97 Balance -1011.084 229.071 -25 Weight 115.5 kg 117.8 kg Intake: IV 569 932 72 ACETAMINOPHEN IV (For NPO 100 ) 1,000 mg In Empty Bag 1 bag @ 400 mls/hr IVPB Q6HR [facility] Rx#:[id number] Albumin Human 5% 250 ml 500 In Empty Bag 1 bag @ 250 mls/hr IVPB Q1HR PRN Rx#: [id number] Lactated Ringers 1,000 ml 370 360 60 @ 20 mls/hr IV .Q24H [facility] Rx#:[id number] co/ci 30 pressure bag 69 72 12 Intake, IV Titration 214.916 127.071 Amount Clevidipine Butyrate 25 179.400 50.333 mg In Empty Bag 1 bag @ 1 MG/HR 2 mls/hr IV .Q24H [facility] Rx#:[id number] Insulin Regular 100 unit 35.516 76.738 In Sodium Chloride 0.9% 100 ml @ Per Protocol IV .Q0M [facility] Rx#:[id number] Output: Chest Tube Drainage 200 170 20 Left Pleural/Mediastinal 200 170 20 Urine 1595 660 77 Other: Voiding Method Indwelling Catheter Indwelling Catheter ABP, PAP, CO, CI - Last Documented Arterial Blood Pressure 103/42 Pulmonary Artery Pressure 39/15 Cardiac Output 7.1 Cardiac Index 2.5 - Exam No acute distress, oriented 3. Nasal O2 in place. HEENT examination is grossly unremarkable. Mucous membranes are moist. No oral lesions. Neck supple. Full range of motion. No adenopathy thyromegaly or neck vein distention. Cardiovascular examination reveals regular rhythm and rate. S1-S2 normal. No S3 or S4. No discernible murmur noted. Lungs reveal mostly clear breath sounds. A few scattered rhonchi are noted. No wheezes or crackles. Breath sounds equal bilaterally. Abdomen soft bowel sounds are heard. No masses or tenderness. Extremities are intact. No cyanosis clubbing or edema. Skin is without rash or lesion. Neurologic examination is brief but nonfocal. - Labs CBC & Chem 7: 01/11/18 03:15 01/11/18 03:15 Labs: Abnormal Lab Results - Last 24 Hours (Table) 01/10/18 01/10/18 01/10/18 Range/Units 08:27 08:51 09:46 WBC (3.8-10.6) k/uL RBC (4.30-5.90) m/uL Hgb (13.0-17.5) gm/dL Hct (39.0-53.0) % Plt Count (150-450) k/uL Neutrophils # (1.3-7.7) k/uL Lymphocytes # (1.0-4.8) k/uL ABG pO2 72 L (83-108) mmHg ABG HCO3 26 H (21-25) mmol/L ABG Total CO2 27 H (19-24) mmol/L Sodium (137-145) mmol/L BUN (9-20) mg/dL Creatinine (0.66-1.25) mg/dL Glucose (74-99) mg/dL POC Glucose (mg/dL) 112 H 114 H (75-99) mg/dL Calcium (8.4-10.2) mg/dL Magnesium (1.6-2.3) mg/dL Alkaline Phosphatase (38-126) U/L Total Protein (6.3-8.2) g/dL Albumin (3.5-5.0) g/dL 01/10/18 01/10/18 01/10/18 Range/Units 11:04 11:43 13:16 WBC (3.8-10.6) k/uL RBC (4.30-5.90) m/uL Hgb (13.0-17.5) gm/dL Hct (39.0-53.0) % Plt Count (150-450) k/uL Neutrophils # (1.3-7.7) k/uL Lymphocytes # (1.0-4.8) k/uL ABG pO2 (83-108) mmHg ABG HCO3 (21-25) mmol/L ABG Total CO2 (19-24) mmol/L Sodium (137-145) mmol/L BUN (9-20) mg/dL Creatinine (0.66-1.25) mg/dL Glucose (74-99) mg/dL POC Glucose (mg/dL) 122 H 118 H 123 H (75-99) mg/dL Calcium (8.4-10.2) mg/dL Magnesium (1.6-2.3) mg/dL Alkaline Phosphatase (38-126) U/L Total Protein (6.3-8.2) g/dL Albumin (3.5-5.0) g/dL 01/10/18 01/10/18 01/10/18 Range/Units 13:48 16:12 17:12 WBC (3.8-10.6) k/uL RBC (4.30-5.90) m/uL Hgb (13.0-17.5) gm/dL Hct (39.0-53.0) % Plt Count (150-450) k/uL Neutrophils # (1.3-7.7) k/uL Lymphocytes # (1.0-4.8) k/uL ABG pO2 (83-108) mmHg ABG HCO3 (21-25) mmol/L ABG Total CO2 (19-24) mmol/L Sodium (137-145) mmol/L BUN (9-20) mg/dL Creatinine (0.66-1.25) mg/dL Glucose (74-99) mg/dL POC Glucose (mg/dL) 131 H 102 H 116 H (75-99) mg/dL Calcium (8.4-10.2) mg/dL Magnesium (1.6-2.3) mg/dL Alkaline Phosphatase (38-126) U/L Total Protein (6.3-8.2) g/dL Albumin (3.5-5.0) g/dL 01/10/18 01/10/18 01/10/18 Range/Units 18:14 20:10 20:44 WBC (3.8-10.6) k/uL RBC (4.30-5.90) m/uL Hgb (13.0-17.5) gm/dL Hct (39.0-53.0) % Plt Count (150-450) k/uL Neutrophils # (1.3-7.7) k/uL Lymphocytes # (1.0-4.8) k/uL ABG pO2 (83-108) mmHg ABG HCO3 (21-25) mmol/L ABG Total CO2 (19-24) mmol/L Sodium (137-145) mmol/L BUN (9-20) mg/dL Creatinine (0.66-1.25) mg/dL Glucose (74-99) mg/dL POC Glucose (mg/dL) 185 H 225 H 213 H (75-99) mg/dL Calcium (8.4-10.2) mg/dL Magnesium (1.6-2.3) mg/dL Alkaline Phosphatase (38-126) U/L Total Protein (6.3-8.2) g/dL Albumin (3.5-5.0) g/dL 01/10/18 01/10/18 01/11/18 Range/Units 22:04 23:24 00:05 WBC (3.8-10.6) k/uL RBC (4.30-5.90) m/uL Hgb (13.0-17.5) gm/dL Hct (39.0-53.0) % Plt Count (150-450) k/uL Neutrophils # (1.3-7.7) k/uL Lymphocytes # (1.0-4.8) k/uL ABG pO2 (83-108) mmHg ABG HCO3 (21-25) mmol/L ABG Total CO2 (19-24) mmol/L Sodium (137-145) mmol/L BUN (9-20) mg/dL Creatinine (0.66-1.25) mg/dL Glucose (74-99) mg/dL POC Glucose (mg/dL) 145 H 109 H 108 H (75-99) mg/dL Calcium (8.4-10.2) mg/dL Magnesium (1.6-2.3) mg/dL Alkaline Phosphatase (38-126) U/L Total Protein (6.3-8.2) g/dL Albumin (3.5-5.0) g/dL 01/11/18 01/11/18 01/11/18 Range/Units 01:04 02:18 03:15 WBC (3.8-10.6) k/uL RBC (4.30-5.90) m/uL Hgb (13.0-17.5) gm/dL Hct (39.0-53.0) % Plt Count (150-450) k/uL Neutrophils # (1.3-7.7) k/uL Lymphocytes # (1.0-4.8) k/uL ABG pO2 (83-108) mmHg ABG HCO3 (21-25) mmol/L ABG Total CO2 (19-24) mmol/L Sodium 134 L (137-145) mmol/L BUN 28 H (9-20) mg/dL Creatinine 1.40 H (0.66-1.25) mg/dL Glucose 134 H (74-99) mg/dL POC Glucose (mg/dL) 151 H 164 H (75-99) mg/dL Calcium 7.9 L (8.4-10.2) mg/dL Magnesium 2.5 H (1.6-2.3) mg/dL Alkaline Phosphatase 30 L (38-126) U/L Total Protein 4.9 L (6.3-8.2) g/dL Albumin 3.0 L (3.5-5.0) g/dL 01/11/18 01/11/18 01/11/18 Range/Units 03:15 03:17 06:18 WBC 12.6 H (3.8-10.6) k/uL RBC 3.34 L (4.30-5.90) m/uL Hgb 10.2 L (13.0-17.5) gm/dL Hct 30.1 L (39.0-53.0) % Plt Count 128 L (150-450) k/uL Neutrophils # 10.8 H (1.3-7.7) k/uL Lymphocytes # 0.8 L (1.0-4.8) k/uL ABG pO2 (83-108) mmHg ABG HCO3 (21-25) mmol/L ABG Total CO2 (19-24) mmol/L Sodium (137-145) mmol/L BUN (9-20) mg/dL Creatinine (0.66-1.25) mg/dL Glucose (74-99) mg/dL POC Glucose (mg/dL) 154 H 44 L (75-99) mg/dL Calcium (8.4-10.2) mg/dL Magnesium (1.6-2.3) mg/dL Alkaline Phosphatase (38-126) U/L Total Protein (6.3-8.2) g/dL Albumin (3.5-5.0) g/dL 01/11/18 01/11/18 Range/Units 06:20 07:54 WBC (3.8-10.6) k/uL RBC (4.30-5.90) m/uL Hgb (13.0-17.5) gm/dL Hct (39.0-53.0) % Plt Count (150-450) k/uL Neutrophils # (1.3-7.7) k/uL Lymphocytes # (1.0-4.8) k/uL ABG pO2 (83-108) mmHg ABG HCO3 (21-25) mmol/L ABG Total CO2 (19-24) mmol/L Sodium (137-145) mmol/L BUN (9-20) mg/dL Creatinine (0.66-1.25) mg/dL Glucose (74-99) mg/dL POC Glucose (mg/dL) 125 H 118 H (75-99) mg/dL Calcium (8.4-10.2) mg/dL Magnesium (1.6-2.3) mg/dL Alkaline Phosphatase (38-126) U/L Total Protein (6.3-8.2) g/dL Albumin (3.5-5.0) g/dL Assessment and Plan Assessment: Assessment Postop day #2 status post three-vessel bypass grafting Postoperative respiratory failure, resolved History of CAD with previous myocardial infarction Lifelong nontobacco user History of diabetes mellitus, type II History of hypertension History of hyperlipidemia Ischemic cardiomyopathy with EF of 35-40% History of CVA/TIA BPH History of anxiety/depression Plan: Plan dated January 11, 2018 The patient did develop atrial fibrillation treated. Respiratory status is stable. Remains on oxygen. We'll continue to recommend deep breathing coughing and clearing his secretions along use of hourly incentive spirometer. Chest x-rays reviewed. Labs medications other data is reviewed. White count 12.6, he will become 0.2, hematocrit 30.1, and platelet count 1 28,000. Sodium 134, potassium chloride CO2 anion gap all normal. BUN and creatinine are 28 and 1.40 respectively. Critical care time 32 minutes Time with Patient: Greater than 30
[2018-01-11] MEDS: HYDROcodone/APAP 5-325MG 1 EACH TAB PO PRN ×3 (08:48→22:20)
--- NOTE | 2018-01-11 08:48 | CONS ---
CONSULTATION DATE OF SERVICE: 01/10/2018 CHIEF COMPLAINT: Consultation regarding medical management. HISTORY OF PRESENT ILLNESS: This 72-year-old gentleman is status post CABG. The patient is still on vent and sedated. He had CABG yesterday. The patient is under the management of the Critical Care Team. As mentioned, patient is on hemodynamic support and ventilator support. The patient is also sedated. He is on insulin drip at 5-1/2 units with maintaining adequate blood sugars. He has good urine output. PAST MEDICAL HISTORY: Significant for patient having history of long-standing diabetes mellitus, obesity, coronary artery disease with previous myocardial infarctions, a fractured left ankle, status post ORIF. The patient also has a history of previous CVA. History of peripheral neuropathy and history of hypertension. The patient is on treatment for hyperlipidemia. 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 Patient is , lives with his spouse. PERSONAL HISTORY: Nonsmoker. No alcohol. ALLERGIES: None known. MEDICATIONS: Medications prior to admission are aspirin 81 mg daily, spironolactone 25 mg daily, losartan 50 mg daily, simvastatin 40 mg daily, Celexa 40 mg daily, metformin 1000 mg b.i.d., Flomax 0.4 mg b.i.d., MiraLAX 17 grams daily, naproxen 250 b.i.d., multivitamins daily, insulin 70/30, 64 units in the evening and 70 units in the morning, Plavix 75 mg daily, Xanax 0.25 b.i.d. FAMILY MEDICAL HISTORY: Not obtained at this setting. REVIEW OF SYSTEM: Patient is sedated on the ventilator. Per nursing no fever, vitals have been stable. Urine output has been good. Oxygenation is requiring ventilatory support. PHYSICAL EXAMINATION: A 72-year-old gentleman on a ventilator at present. Sedated. LUNGS: Clear anteriorly with decreased air flow at the bases. CARDIAC: Normal S1, S2 with no gallops, regular rhythm. No rubs. ABDOMEN: Bowel sounds active. Extremities reveal no edema. NEUROLOGICAL: He is sedated. LABORATORY ASSESSMENT: White count 13.3, hemoglobin 11.7. Electrolytes normal. BUN 22, creatinine 1.22. Albumin 3.0. ASSESSMENT: 1. Status post coronary artery bypass grafting. 2. Coronary artery disease. 3. Diabetes mellitus, controlled with insulin at present. 4. Continued respiratory failure requiring ventilatory support. PLAN: Continue present medical regimen under the direction of the mill manager and post CABG team. ANNE / TIANN: [id number] /
[2018-01-11] MEDS: CLOPIDOGREL 75 MG TAB PO SCH (08:51)
[2018-01-11] MEDS ORDERED: INSULN ASP PRT/INSULIN ASPART 100 UNIT/ML 10 ML VIAL SQ SCH (09:30)
[2018-01-11 09:58] LABS: Glucose,Whole Blood 203 mg/dL (75-99)
--- NOTE | 2018-01-11 10:09 | PN ---
PROGRESS NOTE Mr. Friedman is a 72-year-old male with a history of coronary artery disease, status post coronary artery bypass grafting. He is extubated, has mild dyspnea. No symptoms of chest pain. No dizziness. No palpitation. He is in atrial fibrillation. Hemodynamically, he is stable. He has been started on IV amiodarone drip. He has been switched to oral amiodarone. He is on aspirin, Lipitor 40 mg daily, Plavix 75 mg daily and lisinopril 2.5 mg daily and metoprolol tartrate 12.5 mg 3 times a day. PHYSICAL EXAMINATION: Blood pressure 107/40 with the heart rate in 70s. LUNGS: With mild crackles at the bases. HEART: Irregular, irregular. S1, S2. No S3. No rub. ABDOMEN: Soft, nontender. EXTREMITIES: No significant edema. LAB DATA: Lab data revealed a BUN and creatinine 28 and 1.4 with a hemoglobin of 10.2. IMPRESSION: 1. Status post bypass coronary artery bypass grafting. 2. Ischemic cardiomyopathy. 3. Atrial fibrillation. 4. Hyperlipidemia. RECOMMENDATION: We will continue on the amiodarone. If he remains in atrial fibrillation, then I would recommend to start anticoagulation. We will follow his renal function and depending on his progress, further recommendations will be made. MMODL / IJN: [id number] /
--- NOTE | 2018-01-11 10:19 | P.PN ---
Subjective Progress Note Date: 01/11/18 Principal diagnosis: Unstable angina. Triple vessel coronary artery disease. Previous myocardial infarction with stent placement, insulin-dependent diabetes mellitus with preoperative hemoglobin A1c 6.8%, hypertension, hyperlipidemia, mild COPD with preoperative FEV1 62% of predicted, history of depression, and chronic systolic heart failure with ejection fraction 35-40%, obesity. POD #2 coronary bypass grafting 3 with left internal mammary to the left anterior descending artery, reverse saphenous vein graft off the aorta to the circumflex artery and the posterior descending artery with left greater saphenous vein endoscopic vein harvesting. Clip ligation of the left atrial appendage with a #35 mm AtriClip. Intraoperative transesophageal echocardiogram. Postoperative atrial fibrillation, an unexpected but potential outcome of surgery. Patient's currently sitting up in the chair in no acute distress. Does complain of some chest discomfort. He went into uncontrolled atrial fibrillation last night and was started on IV amiodarone. Hemodynamically stable currently. No new complaints. Objective - Vital Signs Vital signs: Vital Signs Temp 98.8 F 01/11/18 08:00 Pulse 82 01/11/18 09:00 Resp 26 H 01/11/18 09:00 BP 116/43 01/11/18 09:00 Pulse Ox 94 L 01/11/18 09:00 Intake & Output 01/10/18 01/11/18 01/11/18 18:59 06:59 18:59 Intake Total 223.294 7666.071 144 Output Total 1795 830 184 Balance -1011.084 229.071 -40 Weight 115.5 kg 117.8 kg Intake: IV 569 932 144 ACETAMINOPHEN IV (For NPO 100 ) 1,000 mg In Empty Bag 1 bag @ 400 mls/hr IVPB Q6HR [facility] Rx#:[id number] Albumin Human 5% 250 ml 500 In Empty Bag 1 bag @ 250 mls/hr IVPB Q1HR PRN Rx#: [id number] Lactated Ringers 1,000 ml 370 360 120 @ 20 mls/hr IV .Q24H [facility] Rx#:[id number] co/ci 30 pressure bag 69 72 24 Intake, IV Titration 214.916 127.071 Amount Clevidipine Butyrate 25 179.400 50.333 mg In Empty Bag 1 bag @ 1 MG/HR 2 mls/hr IV .Q24H [facility] Rx#:[id number] Insulin Regular 100 unit 35.516 76.738 In Sodium Chloride 0.9% 100 ml @ Per Protocol IV .Q0M [facility] Rx#:[id number] Output: Chest Tube Drainage 200 170 40 Left Pleural 0 Left Pleural/Mediastinal 200 170 40 Urine 1595 660 144 Other: Voiding Method Indwelling Catheter Indwelling Catheter ABP, PAP, CO, CI - Last Documented Arterial Blood Pressure 94/40 Pulmonary Artery Pressure 39/15 Cardiac Output 7.1 Cardiac Index 2.5 - Constitutional General appearance: Present: cooperative, no acute distress, obese - Respiratory Details: Lungs sounds diminished bilaterally. Respirations even, nonlabored. Currently on 10 L high flow nasal cannula with oxygen saturation 93%. Mediastinal/left pleural chest tube to continuous wall suction, 90 mL serosanguineous drainage overnight, 400 mL in the last 24 hours. No air leak present. - Cardiovascular Details: S1, S2 present. Irregular rate and rhythm, controlled atrial fibrillation on telemetry. A/V epicardial pacemakers present, connected to generator, AAI mode with a backup rate of 40 bpm. Sternum stable. Palpable peripheral pulses bilaterally. No edema present. No calf pain or tenderness noted. Right internal jugular Cordis, right radial arterial line present. Heart hugger in place patient demonstrating appropriate use. Antiembolism stockings, SCDs present. - Gastrointestinal Gastrointestinal Comment(s): Abdomen soft, nontender, nondistended, obese. Hypoactive bowel sounds present 4 quadrants. Tolerating diet. - Genitourinary Genitourinary Comment(s): [place] present draining clear, yellow urine. Output 60 mL/h overnight. - Integumentary Integumentary Comment(s): Skin is warm and dry with evidence of good perfusion anterior chest incision well approximated covered with dry intact dressing. Left lower extremity EVH site well approximated. - Neurologic Neurologic: Present: CNII-XII intact - Musculoskeletal Musculoskeletal: Present: gait normal, strength equal bilaterally - Psychiatric Psychiatric: Present: A&O x's 3, appropriate affect, intact judgment & insight - Allied health notes Allied health notes reviewed: nursing - Labs CBC & Chem 7: 01/11/18 03:15 01/11/18 03:15 Labs: Abnormal Lab Results - Last 24 Hours (Table) 07/25/18 07/25/18 07/25/18 Range/Units 11:04 11:43 13:16 WBC (3.8-10.6) k/uL RBC (4.30-5.90) m/uL Hgb (13.0-17.5) gm/dL Hct (39.0-53.0) % Plt Count (150-450) k/uL Neutrophils # (1.3-7.7) k/uL Lymphocytes # (1.0-4.8) k/uL Sodium (137-145) mmol/L BUN (9-20) mg/dL Creatinine (0.66-1.25) mg/dL Glucose (74-99) mg/dL POC Glucose (mg/dL) 122 H 118 H 123 H (75-99) mg/dL Calcium (8.4-10.2) mg/dL Magnesium (1.6-2.3) mg/dL Alkaline Phosphatase (38-126) U/L Total Protein (6.3-8.2) g/dL Albumin (3.5-5.0) g/dL 01/10/18 01/10/18 01/10/18 Range/Units 13:48 16:12 17:12 WBC (3.8-10.6) k/uL RBC (4.30-5.90) m/uL Hgb (13.0-17.5) gm/dL Hct (39.0-53.0) % Plt Count (150-450) k/uL Neutrophils # (1.3-7.7) k/uL Lymphocytes # (1.0-4.8) k/uL Sodium (137-145) mmol/L BUN (9-20) mg/dL Creatinine (0.66-1.25) mg/dL Glucose (74-99) mg/dL POC Glucose (mg/dL) 131 H 102 H 116 H (75-99) mg/dL Calcium (8.4-10.2) mg/dL Magnesium (1.6-2.3) mg/dL Alkaline Phosphatase (38-126) U/L Total Protein (6.3-8.2) g/dL Albumin (3.5-5.0) g/dL 01/10/18 01/10/18 01/10/18 Range/Units 18:14 20:10 20:44 WBC (3.8-10.6) k/uL RBC (4.30-5.90) m/uL Hgb (13.0-17.5) gm/dL Hct (39.0-53.0) % Plt Count (150-450) k/uL Neutrophils # (1.3-7.7) k/uL Lymphocytes # (1.0-4.8) k/uL Sodium (137-145) mmol/L BUN (9-20) mg/dL Creatinine (0.66-1.25) mg/dL Glucose (74-99) mg/dL POC Glucose (mg/dL) 185 H 225 H 213 H (75-99) mg/dL Calcium (8.4-10.2) mg/dL Magnesium (1.6-2.3) mg/dL Alkaline Phosphatase (38-126) U/L Total Protein (6.3-8.2) g/dL Albumin (3.5-5.0) g/dL 01/10/18 01/10/18 01/11/18 Range/Units 22:04 23:24 00:05 WBC (3.8-10.6) k/uL RBC (4.30-5.90) m/uL Hgb (13.0-17.5) gm/dL Hct (39.0-53.0) % Plt Count (150-450) k/uL Neutrophils # (1.3-7.7) k/uL Lymphocytes # (1.0-4.8) k/uL Sodium (137-145) mmol/L BUN (9-20) mg/dL Creatinine (0.66-1.25) mg/dL Glucose (74-99) mg/dL POC Glucose (mg/dL) 145 H 109 H 108 H (75-99) mg/dL Calcium (8.4-10.2) mg/dL Magnesium (1.6-2.3) mg/dL Alkaline Phosphatase (38-126) U/L Total Protein (6.3-8.2) g/dL Albumin (3.5-5.0) g/dL 01/11/18 01/11/18 01/11/18 Range/Units 01:04 02:18 03:15 WBC (3.8-10.6) k/uL RBC (4.30-5.90) m/uL Hgb (13.0-17.5) gm/dL Hct (39.0-53.0) % Plt Count (150-450) k/uL Neutrophils # (1.3-7.7) k/uL Lymphocytes # (1.0-4.8) k/uL Sodium 134 L (137-145) mmol/L BUN 28 H (9-20) mg/dL Creatinine 1.40 H (0.66-1.25) mg/dL Glucose 134 H (74-99) mg/dL POC Glucose (mg/dL) 151 H 164 H (75-99) mg/dL Calcium 7.9 L (8.4-10.2) mg/dL Magnesium 2.5 H (1.6-2.3) mg/dL Alkaline Phosphatase 30 L (38-126) U/L Total Protein 4.9 L (6.3-8.2) g/dL Albumin 3.0 L (3.5-5.0) g/dL 01/11/18 01/11/18 01/11/18 Range/Units 03:15 03:17 06:18 WBC 12.6 H (3.8-10.6) k/uL RBC 3.34 L (4.30-5.90) m/uL Hgb 10.2 L (13.0-17.5) gm/dL Hct 30.1 L (39.0-53.0) % Plt Count 128 L (150-450) k/uL Neutrophils # 10.8 H (1.3-7.7) k/uL Lymphocytes # 0.8 L (1.0-4.8) k/uL Sodium (137-145) mmol/L BUN (9-20) mg/dL Creatinine (0.66-1.25) mg/dL Glucose (74-99) mg/dL POC Glucose (mg/dL) 154 H 44 L (75-99) mg/dL Calcium (8.4-10.2) mg/dL Magnesium (1.6-2.3) mg/dL Alkaline Phosphatase (38-126) U/L Total Protein (6.3-8.2) g/dL Albumin (3.5-5.0) g/dL 01/11/18 01/11/18 01/11/18 Range/Units 06:20 07:54 09:57 WBC (3.8-10.6) k/uL RBC (4.30-5.90) m/uL Hgb (13.0-17.5) gm/dL Hct (39.0-53.0) % Plt Count (150-450) k/uL Neutrophils # (1.3-7.7) k/uL Lymphocytes # (1.0-4.8) k/uL Sodium (137-145) mmol/L BUN (9-20) mg/dL Creatinine (0.66-1.25) mg/dL Glucose (74-99) mg/dL POC Glucose (mg/dL) 125 H 118 H 203 H (75-99) mg/dL Calcium (8.4-10.2) mg/dL Magnesium (1.6-2.3) mg/dL Alkaline Phosphatase (38-126) U/L Total Protein (6.3-8.2) g/dL Albumin (3.5-5.0) g/dL - Imaging and Cardiology Chest x-ray: image reviewed Assessment and Plan (1) Coronary artery disease Current Visit: Yes Status: Chronic Code(s): I25.10 - ATHSCL HEART DISEASE OF [place] CORONARY ARTERY W/O ANG PCTRS SNOMED Code(s): 70280079 (2) History of heart artery stent Current Visit: Yes Status: Chronic Code(s): Z95.5 - PRESENCE OF CORONARY ANGIOPLASTY IMPLANT AND GRAFT SNOMED Code(s): 272409967 (3) Hyperlipidemia Current Visit: Yes Status: Chronic Code(s): E78.5 - HYPERLIPIDEMIA, UNSPECIFIED SNOMED Code(s): 13155616 (4) Hypertension Current Visit: Yes Status: Chronic Code(s): I10 - ESSENTIAL (PRIMARY) HYPERTENSION SNOMED Code(s): 41990405 (5) Insulin dependent diabetes mellitus Current Visit: Yes Status: Chronic Code(s): E11.9 - TYPE 2 DIABETES MELLITUS WITHOUT COMPLICATIONS; Z79.4 - PRODUCTION LINE OPERATOR (CURRENT) USE OF INSULIN SNOMED Code(s): 57156172 (6) Obesity Current Visit: Yes Status: Chronic Code(s): E66.9 - OBESITY, UNSPECIFIED SNOMED Code(s): 885553835 (7) Previous myocardial infarction older than 8 weeks Current Visit: No Status: Resolved Code(s): I25.2 - OLD MYOCARDIAL INFARCTION SNOMED Code(s): 1512619 Plan: 1. Continue aspirin, statin, Plavix, subcu heparin, ALICJA inhibitor, beta jack. Will increase beta jack therapy as tolerated. 2. Continue amiodarone for A. fib prophylaxis. Will transition to oral amiodarone. No need for anticoagulation unless in atrial fibrillation for greater than 24 hours. 2. Wean O2 as tolerated. Encourage incentive spirometry use 10 times every hour. 3. Chest 2 , mediastinal chest tube discontinued without incident. 4. Bronchodilators per Dr. [place]. 5. Will monitor daily labs and x-rays. 6. GI/DVT prophylaxis. 7. Insulin management per primary care service. 8. Pain management with current medication regimen. 9. Increase activity, up to chair. PT/OT/cardiac rehab following. 10. Will place transfer orders for 6 E. selective care this afternoon. 11. More recommendations to follow. Time with Patient: Greater than 30
--- NOTE | 2018-01-11 10:31 | XR ---
EXAMINATION TYPE: XR chest 1V portable DATE OF EXAM: 01/11/2018 COMPARISON: 01/10/2018 HISTORY: Post cardiac surgery TECHNIQUE: Single frontal view of the chest is obtained. FINDINGS: ET and NG tube removed. Mediastinal drain and left-sided chest tube seen. [place] cathet ers been removed and there is a vascular sheath. No sizable pneumothorax. Chronic rib deformities seen with subsegmental consolidation small effusions . Interstitium slightly improved. IMPRESSION: 1. Slight improvement in the interstitium suggestive of improving interstitial congestion. 2. Persistent bilateral infiltrate and small effusion. 3. Faint opacity along the left apex of the lung may be related to soft tissue overlap rather than lo culated fluid or consolidation.
[2018-01-11 12:20] LABS: Glucose,Whole Blood 206 mg/dL (75-99)
[2018-01-11] MEDS: LISINOPRIL 2.5 MG TAB PO SCH (12:45)
[2018-01-11] MEDS: INSULIN ASPART 100 UNIT/ML 1 ML 10 ML VIAL SQ SCH ×3 (12:46→22:18)
[2018-01-11] MEDS: AMIODARONE 200 MG TAB PO SCH ×2 (15:02→20:08)
[2018-01-11 17:29] LABS: Glucose,Whole Blood 278 mg/dL (75-99)
[2018-01-11] MEDS ORDERED: INSULIN ASPART 100 UNIT/ML 1 ML 10 ML VIAL SQ SCH (17:30)
[2018-01-11] MEDS: CITALOPRAM HYDROBROMIDE 20 MG TAB PO SCH (20:08)
[2018-01-11] MEDS: TAMSULOSIN 0.4 MG CAP.ER.24H PO SCH (20:08)
[2018-01-11 20:20] LABS: Hemoglobin A1C 6.6 % (4.0-6.0)
[2018-01-11] MEDS ORDERED: INSULIN NPH 300 UNIT/3 ML VIAL SQ SCH (21:00)
[2018-01-11 21:01] LABS: Glucose,Whole Blood 256 mg/dL (75-99)
[2018-01-11] MEDS: INSULIN NPH 300 UNIT/3 ML VIAL SQ SCH (22:18)
[2018-01-11] MEDS: SENNOSIDES-DOCUSATE SODIUM 1 EACH TAB PO SCH (22:19)
--- NOTE | 2018-01-11 23:03 | PN ---
PROGRESS NOTE ATTENDING PHYSICIAN: Dr. Alfonso Barr. CHIEF COMPLAINT: Re-evaluation. HISTORY OF PRESENT ILLNESS: This is a 72-year-old was admitted to the hospital and undergone CABG. The patient is seen in the ICU today. The patient is doing better today. He was extubated yesterday and his breathing is improved. The patient denies any other symptoms except for soreness from the surgery. Patient does have a history of diabetes mellitus. He also has a history of hypertension. REVIEW OF SYSTEMS: Neuro: Denies any headaches or dizziness. Psych no anxiety. History of chronic depression, controlled. Cardiac: Denies angina/palpitations. Present complaint of surgical chest wall pain. RESPIRATORY: Denies shortness of breath. Some cough with sputum production. GI: No nausea, vomiting. Appetite fair. No abdominal pain. No diarrhea. No bowel movement. no symptoms of dysuria, hematuria. Extremities: Denies pain, edema. Constitutional: No fever or chills. PHYSICAL EXAMINATION: Pleasant gentleman at present in no distress. Awake, alert, oriented. Vital signs reveals temperature 98.8, respirations 24, blood pressure recorded 87/42 at 4:00 am, Present 110/50. HEENT: Normocephalic. Neck: Decreased range of motion. CHEST: Clear to auscultation. Mild decreased air flow at the bases. Cardiac distant heart sounds S1, S2 with no gallops or rubs. ABDOMEN: Soft. Bowel sounds present. Extremities reveal no edema. No tenderness. Neurologically awake, alert, oriented with well-coordinated movements both upper extremities. LAB ASSESSMENT: Was the CBC which reveals hemoglobin 10.2, white count 12.4, platelets 128. Sodium 134, BUN 28, creatinine 1.4. ASSESSMENT: 1. Diabetes mellitus, insulin therapy. 2. Coronary artery disease, status post coronary artery bypass grafting. 3. Hypertension. 4. Acute kidney injury with a creatinine up to 1.4 today. The patient is voiding well. PLAN: Continue present medical regimen. Patient's condition discussed with the patient. Prognosis guarded. Patient's medications reconciled. MMODL / IJN: [id number] /
[2018-01-12 02:04] LABS: Glucose,Whole Blood 137 mg/dL (75-99)
[2018-01-12] MEDS: INSULIN ASPART 100 UNIT/ML 1 ML 10 ML VIAL SQ SCH ×8 (03:27→21:19)
[2018-01-12 03:52] LABS: Glucose,Whole Blood 131 mg/dL (75-99)
[2018-01-12] MEDS: HYDROcodone/APAP 5-325MG 1 EACH TAB PO PRN ×3 (05:43→23:45)
[2018-01-12 06:03] LABS: Glucose,Whole Blood 170 mg/dL (75-99)
[2018-01-12] MEDS ORDERED: HEPARIN SODIUM,PORCINE 5,000 UNIT/ML 1 ML VIAL IV PRN (06:50)
[2018-01-12] MEDS ORDERED: HEPARIN SODIUM,PORCINE 5,000 UNIT/ML 1 ML VIAL IV ONE (06:50)
[2018-01-12 06:52] LABS: Albumin 3.2 g/dL (3.5-5.0); Calcium 8.3 mg/dL (8.4-10.2); Potassium 4.5 mmol/L (3.5-5.1); Total Bilirubin 0.9 mg/dL (0.2-1.3); Total Protein 5.3 g/dL (6.3-8.2)
[2018-01-12] MEDS: ASPIRIN 325 MG TAB PO SCH (06:56)
[2018-01-12] MEDS: HEPARIN SOD,PORK IN 0.45% NACL 25,000 UNIT in 0.45% NACL 1 500ML.BAG IV SCH ×2 (07:05→09:37)
--- NOTE | 2018-01-12 07:25 | PN ---
PROGRESS NOTE Mr. Friedman is a 72-year-old male who has underwent coronary bypass grafting, was in atrial fibrillation yesterday, was transferred to telemetry floor. Early this morning started to complain of chest discomfort with dyspnea and dizziness. His discomfort is different from the incisional pain he had earlier. He is not feeling well this morning and he feels worse than he did yesterday. He denies any palpitations. He continues to be on aspirin once a day, amiodarone 400 mg twice a day, Plavix 75 mg daily, lisinopril 2.5 mg daily, metoprolol tartrate 12.5 mg 3 times a day. PHYSICAL EXAMINATION: Blood pressure 102/60 with the heart rate in the 60s. LUNGS: A few crackles at the bases. HEART: Irregular, irregular, S1, S2. No S3. No rub. ABDOMEN: Soft, obese, nontender. EXTREMITIES: No significant edema. LAB DATA: Lab data revealed a BUN and creatinine of 40 and 1.6, potassium 4.5. EKG revealed atrial fibrillation with ST-segment elevation in the lead II, III and aVF with T-wave inversion anteriorly. IMPRESSION: 1. Symptoms of chest discomfort with symptoms of dyspnea in a patient with recent coronary artery bypass grafting cannot exclude graft closure. 2. Status post coronary artery bypass grafting with RODRIGUES to the LAD, saphenous vein graft to the right coronary artery and saphenous vein graft to the left circumflex. 3. Prior history of ischemic cardiomyopathy. 4. Hypertension. 5. Hyperlipidemia. 6. Diabetes mellitus. 7. Renal function abnormality. RECOMMENDATION: I have recommended to initiate treatment with heparin. I discussed his case with Dr. Amanda Pritchett who is his primary chemical inspector. I recommend proceed with coronary angiography to assess his status and guide his treatment. The rationale behind the procedure as well as the risks and the complications were discussed with the patient who is in full understanding and agreement. MMODL / IJN: [id number] /
[2018-01-12] MEDS ORDERED: LIDOCAINE 1% INJ 10MG/ML (20 ML MDV) ONE (07:28)
[2018-01-12] MEDS ORDERED: INSULN ASP PRT/INSULIN ASPART 100 UNIT/ML 10 ML VIAL SQ SCH (07:30)
[2018-01-12] MEDS ORDERED: metFORMIN 500 MG TAB PO SCH (07:30)
[2018-01-12] MEDS ORDERED: diphenhydrAMINE 50 MG/ML 1 ML VIAL ONE (07:43)
[2018-01-12] MEDS ORDERED: MORPHINE SULFATE 4 MG/ML SYRINGE ONE (07:43)
[2018-01-12] MEDS ORDERED: IV FLUID CONTINUATION 1,000 ML IV ONE (07:52)
[2018-01-12] MEDS ORDERED: diphenhydrAMINE 50 MG/ML 1 ML VIAL IVP ONE (07:53)
[2018-01-12] MEDS ORDERED: MORPHINE SULFATE 4MG/4ML SYRG IVP ONE (07:53)
[2018-01-12] MEDS ORDERED: LIDOCAINE 1% INJ 10MG/ML (20 ML MDV) SQ ONE (07:54)
[2018-01-12] MEDS ORDERED: NITROGLYCERIN 1000MCG/10ML SYRINGE INTRACORON ONE (08:13)
[2018-01-12] MEDS ORDERED: FUROSEMIDE 10 MG/ML 4 ML VIAL ONE (08:23)
[2018-01-12] MEDS ORDERED: IOPAMIDOL-370 100ML BTL INJ ONE ×2 (08:24)
[2018-01-12] MEDS ORDERED: FUROSEMIDE 10 MG/ML 4 ML VIAL IV ONE (08:24)
[2018-01-12] MEDS ORDERED: MORPHINE SULFATE 4 MG/ML SYRINGE IV ONE (08:26)
[2018-01-12] MEDS: IPRATROPIUM-ALBUTEROL 3 ML NEB INHALATION SCH ×4 (08:34→20:55)
[2018-01-12] MEDS: LACTATED RINGERS 1,000 ML IV SCH (08:57)
[2018-01-12] MEDS: INSULN ASP PRT/INSULIN ASPART 100 UNIT/ML 10 ML VIAL SQ SCH (08:58)
[2018-01-12] MEDS: HEPARIN SODIUM,PORCINE 5,000 UNIT/ML 1 ML VIAL SQ SCH (08:59)
[2018-01-12] MEDS: PANTOPRAZOLE 40 MG TABLET PO SCH (08:59)
--- NOTE | 2018-01-12 09:19 | CC ---
CARDIAC CATHETERIZATION REPORT DATE OF SERVICE: 01/12/2018. PROCEDURE: Coronary angiography and selective injection of bypass grafts. PERFORMED BY: Dr. Bennie Pritchett. Moderate conscious sedation time was 42 minutes. Patient was given morphine, Versed and Benadryl and his O2 saturation, hemodynamics and EKG were monitored closely. CLINICAL INFORMATION: Mr. Ricky Friedman underwent aortocoronary bypass surgery on 01/09/2018 with a RODRIGUES to LAD and separate vein graft to the PDA branch of RCA and also an obtuse marginal branch of circumflex. This morning, he developed chest pain, had inferior ST elevation , which were more focal than generalized and became diaphoretic and hypoxic, was therefore advised coronary angiography after evaluation by Dr. Vines. PROCEDURE NOTE: Under local anesthesia and strict aseptic precautions, a 6-Niue[place] introducer was placed in the right femoral artery. Using a Maximiliano catheter, I performed selective coronary angiography of the vein graft to the PDA. Using an AR2 catheter I performed selective coronary angiography of the [place] RCA as well as a vein graft to the obtuse marginal. The Maximiliano catheter was used to perform selective coronary angiography of the RODRIGUES graft. The left coronary catheter was used for left system. LV gram was not performed. The sheath was taken out and a Perclose device was used to secure hemostasis and patient was sent to the room in stable condition. CORONARY ANGIOGRAPHY FINDINGS: RIGHT CORONARY ARTERY: This vessel is totally occluded, heavily calcified in the distal portion with competitive flow. LEFT MAIN CORONARY ARTERY: This vessel has a diffuse 20%-25% stenosis and bifurcates into LAD and circumflex. LEFT ANTERIOR DESCENDING CORONARY ARTERY: This is totally occluded in the proximal portion with limited antegrade flow. LEFT POSTERIOR CIRCUMFLEX CORONARY ARTERY: This vessel gives off a single obtuse marginal that has been grafted, tortuous. There is some haziness before the insertion site, but the flow appears to be fairly decent. The groove branch has some diffuse narrowing noted. There is also filling of the vein graft from the [place] injection noted. SAPHENOUS VEIN GRAFT TO THE RCA: This graft is widely patent in its origin course and insertion site. In the midportion, there is a 30% narrowing. The insertion site is free of significant disease and the PDA is very well opacified as well as the PLV branches are opacified. There is no significant disease involving the vein graft to the PDA branch of RCA. SAPHENOUS VEIN GRAFT TO THE OBTUSE MARGINAL: This graft is widely patent in its origin. There is a mismatch between the size of the graft and size of the vessel. Within the graft, just before the insertion site, there is a smooth narrowing of about 40% or so, but the flow appears to be brisk. The is no a disease at the insertion site. Distally within the graft, there is about a 40% to 50% narrowing, but no critical stenosis is noted. Flow appears to be brisk. There is a mismatch in the size. Opacified obtuse marginal is also demonstrating good flow. LEFT INTERNAL MAMMARY ARTERY GRAFT TO LAD: This graft is widely patent in its origin, course and the insertion site in the [place] looks a bit suspicious in the [place] but in the [place] there is good flow noted and the insertion site appears to be quite good. No significant disease is noted in the LAD but there is diffuse narrowing and it runs all the way to the apex. FINAL IMPRESSION: This patient has about a 40% to 50% stenosis within the body of the graft to the obtuse marginal with good flow. The PDA graft is widely patent. RODRIGUES to LAD is patent with a fairly decent flow in the diffusely diseased LAD. There is total occlusion of LAD and RCA noted. Filling pressures were not checked. RECOMMENDATIONS: Patient's EKG is was more focal than generalized, but possibility of pericarditis also should be entertained. Possibility of some Thrombus distally cannot be excluded.There is no significant disease that required intervention either within the [place] system or the grafts. This was explained to the patient and there was no other family members available for me to talk to at this time. I also spoke to Dr. Orosco and Dr. Vines and I will speak to Dr. Barr. MMODL / IJN: [id number] / [facility] MEDICAL CENTERMalcolm
[2018-01-12 09:22] LABS: Glucose,Whole Blood 191 mg/dL (75-99)
[2018-01-12] MEDS: MUPIROCIN 2% OINT 22 GM TUBE NASAL SCH ×2 (09:39→21:19)
[2018-01-12] MEDS: CLOPIDOGREL 75 MG TAB PO SCH (09:39)
[2018-01-12] MEDS: METOPROLOL TARTRATE 12.5 MG TAB PO SCH ×3 (09:39→21:13)
[2018-01-12] MEDS: ATORVASTATIN 40 MG TAB PO SCH (09:39)
[2018-01-12] MEDS: AMIODARONE 200 MG TAB PO SCH ×2 (09:39→21:12)
--- NOTE | 2018-01-12 09:48 | XR ---
EXAMINATION TYPE: XR chest 1V portable DATE OF EXAM: 01/12/2018 COMPARISON: 01/11/2018 HISTORY: Status post cardiac surgery. Follow-up exam. TECHNIQUE: Single frontal view of the chest is obtained. FINDINGS: There is a left-sided thoracostomy tube similar in position to the prior without residual pneumothorax. Right-sided internal jugular sheath has been removed. Postoperative changes of the ches t are seen with low lung volumes and cardiomegaly redemonstrated. Scattered subsegmental atelectasis is noted with improved retrocardiac opacity. Old right lateral rib fractures are again noted. IMPRESSION: Improving small left layering pleural effusion and associated airspace disease as well a s multifocal atelectasis.
[2018-01-12 09:50] LABS: Basophils % (A) 0 %; Eosinophils # (A) 0.1 k/uL (0-0.7); Eosinophils % (A) 1 %; HCT 31.1 % (39.0-53.0); HGB 9.9 gm/dL (13.0-17.5); Lymphocytes # (A) 0.7 k/uL (1.0-4.8); Lymphocytes % (A) 6 %; MCHC 31.8 g/dL (31.0-37.0); MCV 94.3 fL (80.0-100.0); Monocytes # (A) 0.8 k/uL (0-1.0); Monocytes % (A) 7 %; Neutrophils # (A) 9.7 k/uL (1.3-7.7); Neutrophils % (A) 84 %; Platelet Count 145 k/uL (150-450); RDW 12.9 % (11.5-15.5); WBC 11.5 k/uL (3.8-10.6)
[2018-01-12] MEDS: SODIUM CHLORIDE 0.9% 1,000 ML IV SCH ×2 (09:55→21:22)
--- NOTE | 2018-01-12 09:59 | P.PN ---
Subjective Progress Note Date: 01/12/18 Principal diagnosis: Status post bypass grafting Progress note dated 01/11/2018 72-year-old male status post three-vessel bypass grafting, postoperative day # 2. The patient has a previous history of CAD with previous myocardial infarctions. He is a lifetime nonsmoker has history of diabetes hypertension hyperlipidemia ischemic cardiopathy CVA BPH and anxiety/depression. The patient seemed to be progressing nicely. On nasal O2. We focused on the importance of deep breathing coughing clearing of secretions and use of incentive spirometer every hour. The patient denies any chest pain or chest discomfort. No shortness of breath difficulty breathing coughing wheezing or phlegm production. This patient took a bit longer to extubate. Doing reasonably well today. Seen by Dr. Liu today. Progress note dated 01/12/2018 72-year-old male status post three-vessel bypass grafting, postop day #4. The patient has a history of CAD with previous myocardial infarction. He also has a history of diabetes, hypertension, hyperlipidemia, ischemic cardiopathy myopathy, CVA, BPH and anxiety/depression. The patient currently is on Venturi mask 50%. The patient is now currently postop day #4. The patient did develop chest pain through the night and ST segment elevation. The patient went back to the catheterization lab. The grafts are currently patent. The patient was placed on IV heparin. Is on a saline IV at 70 mL an hour. The patient's currently back in the intensive care unit. Seems relatively comfortable. No chest pain currently. Objective - Vital Signs Vital signs: Vital Signs Temp 96.7 F L 01/12/18 03:28 Pulse 65 01/12/18 03:28 Resp 20 01/12/18 03:28 BP 102/57 01/12/18 03:28 Pulse Ox 92 L 01/12/18 03:28 Intake & Output 01/11/18 01/12/18 01/12/18 18:59 06:59 18:59 Intake Total 1120 395.887 200.667 Output Total 449 69 Balance 671 326.887 200.667 Weight 123.5 kg Intake: IV 520 150 Lactated Ringers 1,000 ml 490 @ 20 mls/hr IV .Q24H [facility] Rx#:[id number] pressure bag 30 Intake, IV Titration 395.887 50.667 Amount Amiodarone 450 mg In 235.887 Dextrose 5% in Water 250 ml @ 1 MG/MIN 34.53 mls/ hr IV .Q7H31M [facility] Rx#: [id number] Heparin Sod,Pork in 0.45% 50.667 NaCl 25,000 unit In 0.45 % NaCl 1 500ml.bag @ 8.1 UNITS/KG/HR 20 mls/hr IV .Q24H [facility] Rx#:[id number] Lactated Ringers 1,000 ml 160 @ 20 mls/hr IV .Q24H [facility] Rx#:[id number] Oral 600 Output: Chest Tube Drainage 80 69 Left Pleural 40 69 Left Pleural/Mediastinal 40 Urine 369 Other: Voiding Method Toilet Toilet Urinal # Voids 1 1 ABP, PAP, CO, CI - Last Documented Arterial Blood Pressure 94/40 Pulmonary Artery Pressure 39/15 Cardiac Output 7.1 Cardiac Index 2.5 - Exam No acute distress, oriented 3. Nasal O2 in place. HEENT examination is grossly unremarkable. Mucous membranes are moist. No oral lesions. Neck supple. Full range of motion. No adenopathy thyromegaly or neck vein distention. Cardiovascular examination reveals regular rhythm and rate. S1-S2 normal. No S3 or S4. No discernible murmur noted. Lungs reveal mostly clear breath sounds. A few scattered rhonchi are noted. No wheezes or crackles. Breath sounds equal bilaterally. Abdomen soft bowel sounds are heard. No masses or tenderness. Extremities are intact. No cyanosis clubbing or edema. Skin is without rash or lesion. Neurologic examination is brief but nonfocal. - Labs CBC & Chem 7: 01/11/18 03:15 01/12/18 05:52 Labs: Abnormal Lab Results - Last 24 Hours (Table) 01/11/18 01/11/18 01/11/18 Range/Units 03:15 09:57 12:18 BUN (9-20) mg/dL Creatinine (0.66-1.25) mg/dL Glucose (74-99) mg/dL POC Glucose (mg/dL) 203 H 206 H (75-99) mg/dL Hemoglobin A1c 6.6 H (4.0-6.0) % Calcium (8.4-10.2) mg/dL Alkaline Phosphatase (38-126) U/L Total Protein (6.3-8.2) g/dL Albumin (3.5-5.0) g/dL 01/11/18 01/11/18 01/12/18 Range/Units 17:27 21:00 02:02 BUN (9-20) mg/dL Creatinine (0.66-1.25) mg/dL Glucose (74-99) mg/dL POC Glucose (mg/dL) 278 H 256 H 137 H (75-99) mg/dL Hemoglobin A1c (4.0-6.0) % Calcium (8.4-10.2) mg/dL Alkaline Phosphatase (38-126) U/L Total Protein (6.3-8.2) g/dL Albumin (3.5-5.0) g/dL 01/12/18 01/12/18 01/12/18 Range/Units 03:40 05:52 06:01 BUN 40 H (9-20) mg/dL Creatinine 1.60 H (0.66-1.25) mg/dL Glucose 146 H (74-99) mg/dL POC Glucose (mg/dL) 131 H 170 H (75-99) mg/dL Hemoglobin A1c (4.0-6.0) % Calcium 8.3 L (8.4-10.2) mg/dL Alkaline Phosphatase 37 L (38-126) U/L Total Protein 5.3 L (6.3-8.2) g/dL Albumin 3.2 L (3.5-5.0) g/dL 01/12/18 Range/Units 09:20 BUN (9-20) mg/dL Creatinine (0.66-1.25) mg/dL Glucose (74-99) mg/dL POC Glucose (mg/dL) 191 H (75-99) mg/dL Hemoglobin A1c (4.0-6.0) % Calcium (8.4-10.2) mg/dL Alkaline Phosphatase (38-126) U/L Total Protein (6.3-8.2) g/dL Albumin (3.5-5.0) g/dL Assessment and Plan Assessment: Assessment Postop day #4 status post three-vessel bypass grafting Postoperative respiratory failure, resolved Chest pain and segment elevation, requiring a trip back to the [facility], grafts patent History of CAD with previous myocardial infarction Lifelong nontobacco user History of diabetes mellitus, type II History of hypertension History of hyperlipidemia Ischemic cardiomyopathy with EF of 35-40% History of CVA/TIA BPH History of anxiety/depression Plan: Plan dated January 11, 2018 The patient did develop atrial fibrillation treated. Respiratory status is stable. Remains on oxygen. We'll continue to recommend deep breathing coughing and clearing his secretions along use of hourly incentive spirometer. Chest x-rays reviewed. Labs medications other data is reviewed. White count 12.6, he will become 0.2, hematocrit 30.1, and platelet count 1 28,000. Sodium 134, potassium chloride CO2 anion gap all normal. BUN and creatinine are 28 and 1.40 respectively. Critical care time 32 minutes Plan dated 01/12/2018 The patient was doing relatively well until sometime early this morning with the patient developed some ST changes and some chest discomfort. The patient went back to the catheterization laboratory. His grafts are currently patent. The patient was placed on IV heparin. The patient is on 50% Venturi mask. The patient's back in the intensive care unit. We'll continue to watch him very carefully. White blood count is 11.5, hemoglobin 9.9, hematocrit 31.1 and platelet count 145,000. Electrolytes were normal. Anion gap is normal. BUN and creatinine were 40 and 1.60 respectively. Critical care time 32 minutes Time with Patient: Greater than 30
--- NOTE | 2018-01-12 10:47 | ECHOF ---
Referral Reason:post cabg MEASUREMENTS -------- HEIGHT: 152.4 cm WEIGHT: 123.4 kg BP: FINDINGS -------- Limited Study to R/O Pericardial Effusion. There is a trivial pericardial effusion present. CONCLUSIONS -------- 1. Limited Study to R/O Pericardial Effusion. 2. There is a trivial pericardial effusion present. AUTOMOTIVE SALES SPECIALIST: Radha Walsh RDCS
--- NOTE | 2018-01-12 11:38 | P.PN ---
Subjective Progress Note Date: 01/12/18 Principal diagnosis: Unstable angina. Triple vessel coronary artery disease. Previous myocardial infarction with stent placement, insulin-dependent diabetes mellitus with preoperative hemoglobin A1c 6.8%, hypertension, hyperlipidemia, mild COPD with preoperative FEV1 62% of predicted, history of depression, and chronic systolic heart failure with ejection fraction 35-40%, obesity. POD #3 coronary bypass grafting 3 with left internal mammary to the left anterior descending artery, reverse saphenous vein graft off the aorta to the circumflex artery and the posterior descending artery with left greater saphenous vein endoscopic vein harvesting. Clip ligation of the left atrial appendage with a #35 mm AtriClip. Intraoperative transesophageal echocardiogram. Postoperative atrial fibrillation, an unexpected but potential outcome of surgery. Patient is currently laying in bed in no significant distress. He was transferred out of ICU to [address] [place] [address] last night. Early this morning he developed substernal chest pain with radiation to his left arm, shortness of breath, diaphoresis. EKG was obtained demonstrating ST elevation in the inferior leads. Dr. Vines from cardiology reviewed his EKG and symptomatology and recommended heart catheterization which was performed this morning by Dr. EVA Pritchett. The heart catheterization did demonstrate patency of the graft sites. The patient continued to have ST elevation and some chest pain which has since been mostly relieved. He was taken back to the intensive care unit for closer monitoring. Currently he is laying in the ICU bed with almost complete resolution of his chest pain although he does still state that he doesn 't quite feel as good as he did yesterday. Objective - Vital Signs Vital signs: Vital Signs Temp 98.6 F 01/12/18 09:06 Pulse 66 01/12/18 10:00 Resp 14 01/12/18 10:00 BP 116/48 01/12/18 10:00 Pulse Ox 93 L 01/12/18 10:00 Intake & Output 01/11/18 01/12/18 01/12/18 18:59 06:59 18:59 Intake Total 1120 395.887 260.667 Output Total 449 69 150 Balance 671 326.887 110.667 Weight 123.5 kg Intake: IV 520 150 Lactated Ringers 1,000 ml 490 @ 20 mls/hr IV .Q24H [facility] Rx#:[id number] pressure bag 30 Intake, IV Titration 395.887 50.667 Amount Amiodarone 450 mg In 235.887 Dextrose 5% in Water 250 ml @ 1 MG/MIN 34.53 mls/ hr IV .Q7H31M [facility] Rx#: [id number] Heparin Sod,Pork in 0.45% 50.667 NaCl 25,000 unit In 0.45 % NaCl 1 500ml.bag @ 8.1 UNITS/KG/HR 20 mls/hr IV .Q24H [facility] Rx#:[id number] Lactated Ringers 1,000 ml 160 @ 20 mls/hr IV .Q24H [facility] Rx#:[id number] Oral 600 60 Output: Chest Tube Drainage 80 69 Left Pleural 40 69 Left Pleural/Mediastinal 40 Urine 369 150 Other: Voiding Method Toilet Toilet Urinal # Voids 1 1 ABP, PAP, CO, CI - Last Documented Arterial Blood Pressure 94/40 Pulmonary Artery Pressure 39/15 Cardiac Output 7.1 Cardiac Index 2.5 - Constitutional General appearance: Present: cooperative, no acute distress, obese - Respiratory Details: Lungs sounds diminished bilaterally. Respirations even, nonlabored. Currently on 50% Ventimask with oxygen saturation 93%. Left pleural chest tube to continuous wall suction, 30 mL serosanguineous drainage overnight, 110 mL in the last 24 hours. No air leak present. - Cardiovascular Details: S1, S2 present. Irregular rate and rhythm, controlled atrial fibrillation on telemetry. A/V epicardial pacemakers present, grounded. Sternum stable. Palpable peripheral pulses bilaterally. Trace bilateral lower extremity edema present. No calf pain or tenderness noted. Heart hugger in place with patient demonstrating appropriate use. Antiembolism stockings, SCDs present. - Gastrointestinal Gastrointestinal Comment(s): Abdomen soft, nontender, nondistended, obese. Hypoactive bowel sounds present 4 quadrants. Tolerating diet. - Genitourinary Genitourinary Comment(s): Del Rosario discontinued yesterday. Patient has been voiding. This morning patient voided 150, bladder scan immediately afterwards demonstrated 450 mL in his bladder and he was straight cathed. - Integumentary Integumentary Comment(s): Skin is warm and dry with evidence of good perfusion anterior chest incision well approximated covered with dry intact dressing. Left lower extremity EVH site well approximated. - Neurologic Neurologic: Present: CNII-XII intact - Musculoskeletal Musculoskeletal: Present: strength equal bilaterally - Psychiatric Psychiatric: Present: A&O x's 3, appropriate affect, intact judgment & insight - Allied health notes Allied health notes reviewed: nursing - Labs CBC & Chem 7: 01/12/18 05:52 01/12/18 05:52 Labs: Abnormal Lab Results - Last 24 Hours (Table) 01/11/18 01/11/18 01/11/18 Range/Units 03:15 12:18 17:27 WBC (3.8-10.6) k/uL RBC (4.30-5.90) m/uL Hgb (13.0-17.5) gm/dL Hct (39.0-53.0) % Plt Count (150-450) k/uL Neutrophils # (1.3-7.7) k/uL Lymphocytes # (1.0-4.8) k/uL BUN (9-20) mg/dL Creatinine (0.66-1.25) mg/dL Glucose (74-99) mg/dL POC Glucose (mg/dL) 206 H 278 H (75-99) mg/dL Hemoglobin A1c 6.6 H (4.0-6.0) % Calcium (8.4-10.2) mg/dL Alkaline Phosphatase (38-126) U/L Troponin I (0.000-0.034) ng/mL Total Protein (6.3-8.2) g/dL Albumin (3.5-5.0) g/dL 01/11/18 01/12/18 01/12/18 Range/Units 21:00 02:02 03:40 WBC (3.8-10.6) k/uL RBC (4.30-5.90) m/uL Hgb (13.0-17.5) gm/dL Hct (39.0-53.0) % Plt Count (150-450) k/uL Neutrophils # (1.3-7.7) k/uL Lymphocytes # (1.0-4.8) k/uL BUN (9-20) mg/dL Creatinine (0.66-1.25) mg/dL Glucose (74-99) mg/dL POC Glucose (mg/dL) 256 H 137 H 131 H (75-99) mg/dL Hemoglobin A1c (4.0-6.0) % Calcium (8.4-10.2) mg/dL Alkaline Phosphatase (38-126) U/L Troponin I (0.000-0.034) ng/mL Total Protein (6.3-8.2) g/dL Albumin (3.5-5.0) g/dL 01/12/18 01/12/18 01/12/18 Range/Units 05:52 05:52 05:52 WBC 11.5 H (3.8-10.6) k/uL RBC 3.30 L (4.30-5.90) m/uL Hgb 9.9 L (13.0-17.5) gm/dL Hct 31.1 L (39.0-53.0) % Plt Count 145 L (150-450) k/uL Neutrophils # 9.7 H (1.3-7.7) k/uL Lymphocytes # 0.7 L (1.0-4.8) k/uL BUN 40 H (9-20) mg/dL Creatinine 1.60 H (0.66-1.25) mg/dL Glucose 146 H (74-99) mg/dL POC Glucose (mg/dL) (75-99) mg/dL Hemoglobin A1c (4.0-6.0) % Calcium 8.3 L (8.4-10.2) mg/dL Alkaline Phosphatase 37 L (38-126) U/L Troponin I 3.380 H* (0.000-0.034) ng/mL Total Protein 5.3 L (6.3-8.2) g/dL Albumin 3.2 L (3.5-5.0) g/dL 01/12/18 01/12/18 Range/Units 06:01 09:20 WBC (3.8-10.6) k/uL RBC (4.30-5.90) m/uL Hgb (13.0-17.5) gm/dL Hct (39.0-53.0) % Plt Count (150-450) k/uL Neutrophils # (1.3-7.7) k/uL Lymphocytes # (1.0-4.8) k/uL BUN (9-20) mg/dL Creatinine (0.66-1.25) mg/dL Glucose (74-99) mg/dL POC Glucose (mg/dL) 170 H 191 H (75-99) mg/dL Hemoglobin A1c (4.0-6.0) % Calcium (8.4-10.2) mg/dL Alkaline Phosphatase (38-126) U/L Troponin I (0.000-0.034) ng/mL Total Protein (6.3-8.2) g/dL Albumin (3.5-5.0) g/dL - Imaging and Cardiology Chest x-ray: report reviewed, image reviewed Assessment and Plan (1) Coronary artery disease Current Visit: Yes Status: Chronic Code(s): I25.10 - ATHSCL HEART DISEASE OF [place] CORONARY ARTERY W/O ANG PCTRS SNOMED Code(s): 76144141 (2) History of heart artery stent Current Visit: Yes Status: Chronic Code(s): Z95.5 - PRESENCE OF CORONARY ANGIOPLASTY IMPLANT AND GRAFT SNOMED Code(s): 253084923 (3) Hyperlipidemia Current Visit: Yes Status: Chronic Code(s): E78.5 - HYPERLIPIDEMIA, UNSPECIFIED SNOMED Code(s): 47041966 (4) Hypertension Current Visit: Yes Status: Chronic Code(s): I10 - ESSENTIAL (PRIMARY) HYPERTENSION SNOMED Code(s): 90260886 (5) Insulin dependent diabetes mellitus Current Visit: Yes Status: Chronic Code(s): E11.9 - TYPE 2 DIABETES MELLITUS WITHOUT COMPLICATIONS; Z79.4 - 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 Continue aspirin, statin, Plavix, subcu heparin, beta jack. Will increase beta jack therapy as tolerated. ALICJA inhibitor discontinued secondary to increase in creatinine. 2. Continue amiodarone for A. fib prophylaxis. IV heparin initiated per cardiology. 3. Wean O2 as tolerated. Encourage incentive spirometry use 10 times every hour. 4. Bronchodilators per Dr. [place]. 5. Will monitor daily labs and x-rays. 6. GI/DVT prophylaxis. 7. Insulin management per primary care service. 8. Pain management with current medication regimen. 9. Increase activity, up to chair. PT/OT/cardiac rehab following. 10. Continue to monitor for chest pain, EKG changes. Will trend troponin to make sure it is trending down. 11. Bladder scan every 6 hours. If greater than 300 mL residual straight cath patient. After second straight cath may reinsert Del Rosario. 12. More recommendations to follow. Time with Patient: Greater than 30
[2018-01-12 12:02] LABS: Glucose,Whole Blood 175 mg/dL (75-99)
[2018-01-12] MEDS: LISINOPRIL 2.5 MG TAB PO SCH ×2 (12:07→12:10)
[2018-01-12] MEDS ORDERED: SODIUM CHLORIDE 0.9% 500 ML IV ONE (12:46)
[2018-01-12] MEDS ORDERED: DEXTROSE 5% IN WATER 100 ML with AMIODARONE 150 MG IV ONE (14:00)
[2018-01-12 17:08] LABS: Glucose,Whole Blood 202 mg/dL (75-99)
--- NOTE | 2018-01-12 17:18 | ECHOF ---
Referral Reason:post cath MEASUREMENTS -------- HEIGHT: 152.4 cm WEIGHT: 123.4 kg BP: 109/49 RVIDd: 3.2 cm (< 3.3) IVSd: 1.1 cm (0.6 - 1.1) LVIDd: 4.6 cm (3.9 - 5.3) LVPWd: 1.3 cm (0.6 - 1.1) IVSs: 1.4 cm LVIDs: 4.1 cm LVPWs: 1.5 cm MV EXCURSION: 16.399 mm (> 18.000) MV EF SLOPE: 51 mm/s (70 - 150) EPSS: 0.9 cm RAP: 5.00 mmHg RVSP: 9.79 mmHg FINDINGS -------- Undetermined rhythm. This was a techncally difficult study with suboptimal views, , Lumason utilized for enhancement of im ages. TDS due to CABG and Bandages. There is mild concentric left ventricular hypertrophy. Overall left ventricular systolic function i s moderate-severely impaired with, an EF between 30 - 35 %. Anterseptal Hypokinesis Inferior Hypo kinesis Septal Hypokinesis The right ventricle is normal in size. The left atrial size is normal. The right atrial size is normal. 5.0mg OF Lumason UTLIZED: 2 OR MORE WALL SEGMENTS NOT VISUALIZED. The aortic valve was not well visualized. Mild mitral regurgitation is present. Mild tricuspid regurgitation present. There is no evidence of pulmonary hypertension. The right v entricular systolic pressure, as measured by Doppler, is 9.79mmHg. The pulmonic valve was not well visualized. The aortic root size is normal. There is a small, generalized pericardial effusion present. CONCLUSIONS -------- 1. This was a techncally difficult study with suboptimal views, , Lumason utilized for enhancement of images. 2. TDS due to CABG and Bandages. 3. There is mild concentric left ventricular hypertrophy. 4. Overall left ventricular systolic function is moderate-severely impaired with, an EF between 30 - 35 %. 5. Anterseptal Hypokinesis 6. Inferior Hypokinesis 7. Septal Hypokinesis 8. The right ventricle is normal in size. 9. 5.0mg OF Lumason UTLIZED: 2 OR MORE WALL SEGMENTS NOT VISUALIZED. 10. The aortic valve was not well visualized. 11. Mild mitral regurgitation is present. 12. Mild tricuspid regurgitation present. 13. There is no evidence of pulmonary hypertension. 14. The right ventricular systolic pressure, as measured by Doppler, is 9.79mmHg. 15. The pulmonic valve was not well visualized. 16. The aortic root size is normal. 17. There is a small, generalized pericardial effusion present. HOUSEKEEPER MANAGER: Radha Walsh RDCS
[2018-01-12] MEDS: TAMSULOSIN 0.4 MG CAP.ER.24H PO SCH (17:30)
[2018-01-12] MEDS: CITALOPRAM HYDROBROMIDE 20 MG TAB PO SCH (21:12)
[2018-01-12] MEDS: SENNOSIDES-DOCUSATE SODIUM 1 EACH TAB PO SCH (21:19)
[2018-01-12] MEDS: INSULIN NPH 300 UNIT/3 ML VIAL SQ SCH (21:19)
[2018-01-12 21:21] LABS: Glucose,Whole Blood 152 mg/dL (75-99)
--- NOTE | 2018-01-12 23:49 | PN ---
PROGRESS NOTE ATTENDING PHYSICIAN: Dr. Vega. CONSULTING PHYSICIAN: Dr. Alfonso Barr. CHIEF COMPLAINT: Re-evaluation. HISTORY OF PRESENT ILLNESS: This is a 72-year-old gentleman who is status post CABG. The patient was actually doing fairly well until this morning. He suddenly started having significant pain, left chest, radiating to the left arm. The patient in view of this was evaluated by Cardiology on a stat basis and taken back for repeat cardiac catheterization to make sure patient did not have an occlusion of one of the grafts. The cardiac catheterization as Dr. Amanda Pritchett conveyed to me after the cath suggested the patient's grafts were open and it was felt the patient could very well have some possibility of thrombus. This really could not be excluded. There was no significant disease that required intervention and the possibility of pericarditis was also entertained. The patient was seen at noontime. He was feeling fairly well. The patient is on anticoagulation. REVIEW OF SYSTEMS: NEURO: Denies any headaches, dizziness. PSYCH: No anxiety. CARDIAC: Denies chest pain, angina, palpitations. RESPIRATORY: Denies shortness of breath or cough. GI: No nausea, vomiting. Poor appetite. No abdominal pain. No diarrhea. : No symptoms of dysuria, hematuria. EXTREMITIES: Denies pain. CONSTITUTIONAL: No fever or chills. PHYSICAL EXAMINATION: Blood pressure was 85/50, pulse rate of 61, respirations are 18, pulse 71. The patient is in atrial flutter, variable block. HEENT: Normocephalic. NECK: Decreased range of motion. CHEST: Decreased air flow at the right base. CARDIAC: Normal S1, S2 with no gallops or rubs appreciated. ABDOMEN: Soft. Bowel sounds present. Extremities revealed trace edema. NEUROLOGIC: Awake, alert, oriented with well-coordinated movements. LABORATORY ASSESSMENT: Echocardiogram which shows ejection fraction of 35% with generalized hypokinesia. Labs revealed a white count of 11.5, hemoglobin 9.9, platelets 145. Electrolytes are normal. BUN 40, creatinine 1.6. Blood sugars running in the 170 range. ASSESSMENT: 1. Status post coronary artery bypass graft. 2. Chest pain, etiology undetermined. 3. Diabetes mellitus with mildly alert elevated blood sugars. Continue additional coverage with insulin and increase periodic insulin dosages. 4. Anemia. 5. Thrombocytopenia. 6. Obesity. PLAN: Continue present medical regimen. Patient's condition discussed with the patient's spouse. Prognosis remain guarded. MMODL / IJN: [id number] /
[2018-01-13] MEDS: INSULIN ASPART 100 UNIT/ML 1 ML 10 ML VIAL SQ SCH ×8 (01:53→20:57)
[2018-01-13 02:15] LABS: Glucose,Whole Blood 124 mg/dL (75-99)
[2018-01-13 04:56] LABS: HCT 28.3 % (39.0-53.0); HGB 9.2 gm/dL (13.0-17.5); MCH 30.5 pg (25.0-35.0); MCHC 32.3 g/dL (31.0-37.0); MCV 94.2 fL (80.0-100.0); Platelet Count 169 k/uL (150-450); RBC 3.01 m/uL (4.30-5.90); RDW 13.1 % (11.5-15.5); WBC 10.6 k/uL (3.8-10.6)
[2018-01-13 05:17] LABS: Albumin 2.8 g/dL (3.5-5.0); Potassium 4.6 mmol/L (3.5-5.1); Total Bilirubin 0.8 mg/dL (0.2-1.3)
--- NOTE | 2018-01-13 06:45 | XR ---
EXAMINATION TYPE: XR chest 1V portable DATE OF EXAM: 01/13/2018 HISTORY: post cardiac surgery. REFERENCE: Previous study dated 01/12/2018. FINDINGS: There has been a midline sternotomy. A left pleural drain is in place. There is apparent elevation of the right hemidiaphragm. The heart is enlarged. There is increased [place] at the left lung base. This is likely due to a combination of pleural fluid and atelectasis. The re has been little change in the appearance of the lungs. IMPRESSION: NO APPARENT CHANGE IN THE APPEARANCE THE LUNGS.
[2018-01-13 06:52] LABS: Glucose,Whole Blood 158 mg/dL (75-99)
[2018-01-13] MEDS: PANTOPRAZOLE 40 MG TABLET PO SCH (07:07)
[2018-01-13] MEDS: AMIODARONE 200 MG TAB PO SCH ×2 (08:24→20:51)
[2018-01-13] MEDS: ATORVASTATIN 40 MG TAB PO SCH (08:25)
[2018-01-13] MEDS: CLOPIDOGREL 75 MG TAB PO SCH (08:25)
[2018-01-13] MEDS: ASPIRIN 325 MG TAB PO SCH (08:25)
[2018-01-13] MEDS: METOPROLOL TARTRATE 12.5 MG TAB PO SCH ×2 (08:26→19:09)
[2018-01-13] MEDS: INSULN ASP PRT/INSULIN ASPART 100 UNIT/ML 10 ML VIAL SQ SCH (08:28)
[2018-01-13] MEDS: IPRATROPIUM-ALBUTEROL 3 ML NEB INHALATION SCH ×4 (08:48→20:32)
--- NOTE | 2018-01-13 09:32 | P.PN ---
Subjective Progress Note Date: 01/13/18 Principal diagnosis: Status post bypass grafting Progress note dated 01/11/2018 72-year-old male status post three-vessel bypass grafting, postoperative day # 2. The patient has a previous history of CAD with previous myocardial infarctions. He is a lifetime nonsmoker has history of diabetes hypertension hyperlipidemia ischemic cardiopathy CVA BPH and anxiety/depression. The patient seemed to be progressing nicely. On nasal O2. We focused on the importance of deep breathing coughing clearing of secretions and use of incentive spirometer every hour. The patient denies any chest pain or chest discomfort. No shortness of breath difficulty breathing coughing wheezing or phlegm production. This patient took a bit longer to extubate. Doing reasonably well today. Seen by Dr. Liu today. Progress note dated 01/12/2018 72-year-old male status post three-vessel bypass grafting, postop day #3. The patient has a history of CAD with previous myocardial infarction. He also has a history of diabetes, hypertension, hyperlipidemia, ischemic cardiopathy myopathy, CVA, BPH and anxiety/depression. The patient currently is on Venturi mask 50%. The patient is now currently postop day #3. The patient did develop chest pain through the night and ST segment elevation. The patient went back to the catheterization lab. The grafts are currently patent. The patient was placed on IV heparin. Is on a saline IV at 70 mL an hour. The patient's currently back in the intensive care unit. Seems relatively comfortable. No chest pain currently. Progress note dated 01/13/2018 72-year-old male postop day #4, status post bypass grafting, three-vessel. The patient has history of CAD and previous myocardial infarction. Also suffers some diabetes, hypertension, hyperlipidemia, ischemic cardiomyopathy, CVA, BPH and anxiety/depression. The patient to go back to the catheterization laboratory. The grafts were found to be patent. He was placed on IV heparin. He remains on IV heparin. He is on 8 L high flow. Getting a saline IV at 30 mL an hour. The patient has been slow to improve. Doing better thousand on his incentive spirometer. Denies any chest pain or chest discomfort. Denies any shortness of breath. Does have pain at the surgical site. Chest x-ray shows typical postoperative changes with some bibasilar atelectasis and small effusions. White count is 10.6, hemoglobin 9.2, hematocrit 28.3 and platelet count 169,000. PTT is 44.5 reflecting the IV heparin. Sodium potassium chloride CO2 anion gap all normal. BUN and creatinine were 46 and 1.30. The rest of the labs look okay. Objective - Vital Signs Vital signs: Vital Signs Temp 98.3 F 01/13/18 04:00 Pulse 69 01/13/18 09:04 Resp 21 01/13/18 07:00 BP 138/58 01/13/18 07:00 Pulse Ox 98 01/13/18 07:00 Intake & Output 01/12/18 01/13/18 01/13/18 18:59 06:59 18:59 Intake Total 120.113 5795.333 Output Total 750 780 20 Balance 148.000 409.333 -20 Weight 123.5 kg 125.8 kg Intake: IV 150 675 Sodium Chloride 0.9% 1, 675 000 ml @ 75 mls/hr IV . [id number] [facility] Rx#:[id number] Intake, IV Titration 188.000 289.333 Amount Heparin Sod,Pork in 0.45% 188.000 289.333 NaCl 25,000 unit In 0.45 % NaCl 1 500ml.bag @ 8.1 UNITS/KG/HR 20 mls/hr IV .Q24H [facility] Rx#:[id number] Oral 560 225 Output: Chest Tube Drainage 180 20 Left Pleural 180 20 Urine 750 600 Post Void Residual 0 Other: Voiding Method Bedside Commode Bedside Commode Urinal Urinal # Voids 1 0 ABP, PAP, CO, CI - Last Documented Arterial Blood Pressure 94/40 Pulmonary Artery Pressure 39/15 Cardiac Output 7.1 Cardiac Index 2.5 - Exam No acute distress, oriented 3. Nasal O2 in place. HEENT examination is grossly unremarkable. Mucous membranes are moist. No oral lesions. Neck supple. Full range of motion. No adenopathy thyromegaly or neck vein distention. Cardiovascular examination reveals regular rhythm and rate. S1-S2 normal. No S3 or S4. No discernible murmur noted. Lungs reveal a few scattered rhonchi. Some crackles noted at the bases. No wheezes. Breath sounds are equal bilaterally. All in all, lung sounds are a bit improved. Abdomen soft bowel sounds are heard. No masses or tenderness. Extremities are intact. No cyanosis clubbing or edema. Skin is without rash or lesion. Neurologic examination is brief but nonfocal. - Labs CBC & Chem 7: 01/13/18 04:38 01/13/18 04:38 Labs: Abnormal Lab Results - Last 24 Hours (Table) 01/12/18 01/12/18 01/12/18 Range/Units 05:52 05:52 12:01 WBC 11.5 H (3.8-10.6) k/uL RBC 3.30 L (4.30-5.90) m/uL Hgb 9.9 L (13.0-17.5) gm/dL Hct 31.1 L (39.0-53.0) % Plt Count 145 L (150-450) k/uL Neutrophils # 9.7 H (1.3-7.7) k/uL Lymphocytes # 0.7 L (1.0-4.8) k/uL APTT (22.0-30.0) sec BUN (9-20) mg/dL Creatinine (0.66-1.25) mg/dL Glucose (74-99) mg/dL POC Glucose (mg/dL) 175 H (75-99) mg/dL Calcium (8.4-10.2) mg/dL Magnesium (1.6-2.3) mg/dL Alkaline Phosphatase (38-126) U/L Troponin I 3.380 H* (0.000-0.034) ng/mL Total Protein (6.3-8.2) g/dL Albumin (3.5-5.0) g/dL 01/12/18 01/12/18 01/12/18 Range/Units 15:06 17:07 18:31 WBC (3.8-10.6) k/uL RBC (4.30-5.90) m/uL Hgb (13.0-17.5) gm/dL Hct (39.0-53.0) % Plt Count (150-450) k/uL Neutrophils # (1.3-7.7) k/uL Lymphocytes # (1.0-4.8) k/uL APTT 47.4 H (22.0-30.0) sec BUN (9-20) mg/dL Creatinine (0.66-1.25) mg/dL Glucose (74-99) mg/dL POC Glucose (mg/dL) 202 H (75-99) mg/dL Calcium (8.4-10.2) mg/dL Magnesium (1.6-2.3) mg/dL Alkaline Phosphatase (38-126) U/L Troponin I 2.300 H* (0.000-0.034) ng/mL Total Protein (6.3-8.2) g/dL Albumin (3.5-5.0) g/dL 01/12/18 01/13/18 01/13/18 Range/Units 21:15 01:50 04:38 WBC (3.8-10.6) k/uL RBC (4.30-5.90) m/uL Hgb (13.0-17.5) gm/dL Hct (39.0-53.0) % Plt Count (150-450) k/uL Neutrophils # (1.3-7.7) k/uL Lymphocytes # (1.0-4.8) k/uL APTT 44.5 H (22.0-30.0) sec BUN (9-20) mg/dL Creatinine (0.66-1.25) mg/dL Glucose (74-99) mg/dL POC Glucose (mg/dL) 152 H 124 H (75-99) mg/dL Calcium (8.4-10.2) mg/dL Magnesium (1.6-2.3) mg/dL Alkaline Phosphatase (38-126) U/L Troponin I (0.000-0.034) ng/mL Total Protein (6.3-8.2) g/dL Albumin (3.5-5.0) g/dL 01/13/18 01/13/18 01/13/18 Range/Units 04:38 04:38 04:38 WBC (3.8-10.6) k/uL RBC 3.01 L (4.30-5.90) m/uL Hgb 9.2 L (13.0-17.5) gm/dL Hct 28.3 L (39.0-53.0) % Plt Count (150-450) k/uL Neutrophils # (1.3-7.7) k/uL Lymphocytes # (1.0-4.8) k/uL APTT (22.0-30.0) sec BUN 46 H (9-20) mg/dL Creatinine 1.30 H (0.66-1.25) mg/dL Glucose 124 H (74-99) mg/dL POC Glucose (mg/dL) (75-99) mg/dL Calcium 8.0 L (8.4-10.2) mg/dL Magnesium 3.0 H (1.6-2.3) mg/dL Alkaline Phosphatase 37 L (38-126) U/L Troponin I (0.000-0.034) ng/mL Total Protein 5.0 L (6.3-8.2) g/dL Albumin 2.8 L (3.5-5.0) g/dL 01/13/18 Range/Units 06:50 WBC (3.8-10.6) k/uL RBC (4.30-5.90) m/uL Hgb (13.0-17.5) gm/dL Hct (39.0-53.0) % Plt Count (150-450) k/uL Neutrophils # (1.3-7.7) k/uL Lymphocytes # (1.0-4.8) k/uL APTT (22.0-30.0) sec BUN (9-20) mg/dL Creatinine (0.66-1.25) mg/dL Glucose (74-99) mg/dL POC Glucose (mg/dL) 158 H (75-99) mg/dL Calcium (8.4-10.2) mg/dL Magnesium (1.6-2.3) mg/dL Alkaline Phosphatase (38-126) U/L Troponin I (0.000-0.034) ng/mL Total Protein (6.3-8.2) g/dL Albumin (3.5-5.0) g/dL Assessment and Plan Assessment: Assessment Postop day #4 status post three-vessel bypass grafting Postoperative ventilator management Marginal ongoing respiratory status still requiring significant supplemental oxygen. Chest pain and ST segment elevation, requiring a trip back to the [facility], grafts patent History of CAD with previous myocardial infarction Lifelong nontobacco user History of diabetes mellitus, type II History of hypertension History of hyperlipidemia Ischemic cardiomyopathy with EF of 35-40% History of CVA/TIA BPH History of anxiety/depression Plan: Plan dated January 11, 2018 The patient did develop atrial fibrillation treated. Respiratory status is stable. Remains on oxygen. We'll continue to recommend deep breathing coughing and clearing his secretions along use of hourly incentive spirometer. Chest x-rays reviewed. Labs medications other data is reviewed. White count 12.6, he will become 0.2, hematocrit 30.1, and platelet count 1 28,000. Sodium 134, potassium chloride CO2 anion gap all normal. BUN and creatinine are 28 and 1.40 respectively. Critical care time 32 minutes Plan dated 01/12/2018 The patient was doing relatively well until sometime early this morning with the patient developed some ST changes and some chest discomfort. The patient went back to the catheterization laboratory. His grafts are currently patent. The patient was placed on IV heparin. The patient is on 50% Venturi mask. The patient's back in the intensive care unit. We'll continue to watch him very carefully. White blood count is 11.5, hemoglobin 9.9, hematocrit 31.1 and platelet count 145,000. Electrolytes were normal. Anion gap is normal. BUN and creatinine were 40 and 1.60 respectively. Critical care time 32 minutes Plan dated 01/13/2018 The patient is still on 8 L high flow oxygen. Today is postop day #4, three- vessel bypass grafting. He is on IV heparin via weightbase protocol. His IV is saline at 30 mL an hour. Chest x-ray shows only minimal improvement. The patient is improving in my opinion but very slowly. We'll continue to follow. Prognosis is very guarded this time. We do recommend ongoing use of incentive spirometer every hour. We also recommend deep breathing coughing and clearing secretions. We'll continue with bronchodilators. Prognosis is guarded. Additional recommendations and suggestions are forthcoming. Critical care time 31 minutes Time with Patient: Greater than 30
[2018-01-13] MEDS: HYDROcodone/APAP 5-325MG 1 EACH TAB PO PRN ×2 (10:24→22:41)
[2018-01-13] MEDS: HEPARIN SOD,PORK IN 0.45% NACL 25,000 UNIT in 0.45% NACL 1 500ML.BAG IV SCH (10:26)
--- NOTE | 2018-01-13 11:02 | PN ---
PROGRESS NOTE Mr. Friedman is a 72-year-old male who has underwent coronary artery bypass grafting yesterday, had an episode of chest discomfort and ST-segment changes, underwent repeat cardiac catheterization by Dr. Amanda Pritchett and was found to have patent stent and medical therapy was recommended. He has no further similar symptoms. He has chest discomfort, worse with breathing at this time. He is mildly dyspneic. He denies any dizziness, palpitation. He denies any nausea. He continues to be at this time in atrial fibrillation with a controlled ventricular response. He denies any nausea or vomiting. He continues to be on the IV heparin, amiodarone 400 mg twice a day, aspirin once a day, Lipitor 40 mg daily, Plavix 75 mg daily, metoprolol tartrate 12.5 mg twice a day. PHYSICAL EXAMINATION: Blood pressure 138/50 with a heart rate in the 60s. Lungs with mild decrease in breath sounds, no wheezes. HEART: Irregular, irregular. S1, S2. No S3. No rub appreciated. ABDOMEN: Soft, nontender, obese. Right groin, no hematoma. LAB DATA: Revealed a hemoglobin of 9.2, BUN and creatinine 46 and 1.3, which has improved compared with yesterday. His peak troponin 3.3. His repeat echocardiogram yesterday showed an ejection fraction of 35% with anteroseptal hypokinesis. IMPRESSION: 1. Status post coronary artery bypass grafting. 2. Episode of chest discomfort yesterday, improving. Could be related to a thrombus. 3. Atrial fibrillation, on IV heparin. 4. Hypertension. 5. Ischemic cardiomyopathy. 6. Hyperlipidemia. RECOMMENDATION: From the cardiac standpoint, will continue present therapy. I would recommend to cut down the dose of his aspirin and add anticoagulation to his regimen. Stop his IV heparin. Continue to increase his level of activity and depending on his progress, further recommendations will be made. MMODL / IJN: [id number] /
--- NOTE | 2018-01-13 11:05 | P.PN ---
Subjective Progress Note Date: 01/13/18 Principal diagnosis: Unstable angina. Triple vessel coronary artery disease. Previous myocardial infarction with stent placement, insulin-dependent diabetes mellitus with preoperative hemoglobin A1c 6.8%, hypertension, hyperlipidemia, mild COPD with preoperative FEV1 62% of predicted, history of depression, and chronic systolic heart failure with ejection fraction 35-40%, obesity. POD #4 coronary bypass grafting 3 with left internal mammary to the left anterior descending artery, reverse saphenous vein graft off the aorta to the circumflex artery and the posterior descending artery with left greater saphenous vein endoscopic vein harvesting. Clip ligation of the left atrial appendage with a #35 mm AtriClip. Intraoperative transesophageal echocardiogram. Postoperative atrial fibrillation, an unexpected but potential outcome of surgery. Patient is currently sitting up in a recliner in no acute distress. His ST elevation has resolved. He does still complain of some chest discomfort but not anything like it was yesterday. Remains in atrial flutter. Objective - Vital Signs Vital signs: Vital Signs Temp 98.3 F 01/13/18 04:00 Pulse 69 01/13/18 09:04 Resp 21 01/13/18 07:00 BP 138/58 01/13/18 07:00 Pulse Ox 98 01/13/18 07:00 Intake & Output 01/12/18 01/13/18 01/13/18 18:59 06:59 18:59 Intake Total 823.682 6249.333 73.334 Output Total 750 780 20 Balance 148.000 409.333 53.334 Weight 123.5 kg 125.8 kg Intake: IV 150 675 Sodium Chloride 0.9% 1, 675 000 ml @ 75 mls/hr IV . [id number] [facility] Rx#:[id number] Intake, IV Titration 188.000 289.333 73.334 Amount Heparin Sod,Pork in 0.45% 188.000 289.333 73.334 NaCl 25,000 unit In 0.45 % NaCl 1 500ml.bag @ 8.1 UNITS/KG/HR 20 mls/hr IV .Q24H [facility]UC[facility] Rx#:[id number] Oral 560 225 Output: Chest Tube Drainage 180 20 Left Pleural 180 20 Urine 750 600 Post Void Residual 0 Other: Voiding Method Bedside Commode Bedside Commode Urinal Urinal # Voids 1 0 ABP, PAP, CO, CI - Last Documented Arterial Blood Pressure 94/40 Pulmonary Artery Pressure 39/15 Cardiac Output 7.1 Cardiac Index 2.5 - Constitutional General appearance: Present: cooperative, no acute distress, obese - Respiratory Details: Lungs sounds diminished bilaterally. Respirations even, nonlabored. Currently on 8 L high flow nasal cannula with oxygen saturation 98%. Left pleural chest tube to continuous wall suction, 90 mL serosanguineous drainage overnight, 230 mL in the last 24 hours. No air leak present. - Cardiovascular Details: S1, S2 present. Irregularly regular rate and rhythm, controlled atrial flutter on telemetry. A/V epicardial pacemakers present, connected to generator, generator turned off. Sternum stable. Palpable peripheral pulses bilaterally. Trace bilateral lower extremity edema present. No calf pain or tenderness noted. Heart hugger in place with patient demonstrating appropriate use. Antiembolism stockings, SCDs present. - Gastrointestinal Gastrointestinal Comment(s): Abdomen soft, nontender, nondistended, obese. Active bowel sounds present 4 quadrants. Tolerating diet. Positive flatus. - Genitourinary Genitourinary Comment(s): Patient continues to void 100-150 mL at a time.. - Integumentary Integumentary Comment(s): Patient continues to void 100-150 mL at a time with minimal residual per bladder scan. - Neurologic Neurologic: Present: CNII-XII intact - Musculoskeletal Musculoskeletal: Present: gait normal, strength equal bilaterally - Psychiatric Psychiatric: Present: A&O x's 3, appropriate affect, intact judgment & insight - Allied health notes Allied health notes reviewed: nursing - Labs CBC & Chem 7: 01/13/18 04:38 01/13/18 04:38 Labs: Abnormal Lab Results - Last 24 Hours (Table) 01/12/18 01/12/18 01/12/18 Range/Units 12:01 15:06 17:07 RBC (4.30-5.90) m/uL Hgb (13.0-17.5) gm/dL Hct (39.0-53.0) % APTT 47.4 H (22.0-30.0) sec BUN (9-20) mg/dL Creatinine (0.66-1.25) mg/dL Glucose (74-99) mg/dL POC Glucose (mg/dL) 175 H 202 H (75-99) mg/dL Calcium (8.4-10.2) mg/dL Magnesium (1.6-2.3) mg/dL Alkaline Phosphatase (38-126) U/L Troponin I (0.000-0.034) ng/mL Total Protein (6.3-8.2) g/dL Albumin (3.5-5.0) g/dL 01/12/18 01/12/18 01/13/18 Range/Units 18:31 21:15 01:50 RBC (4.30-5.90) m/uL Hgb (13.0-17.5) gm/dL Hct (39.0-53.0) % APTT (22.0-30.0) sec BUN (9-20) mg/dL Creatinine (0.66-1.25) mg/dL Glucose (74-99) mg/dL POC Glucose (mg/dL) 152 H 124 H (75-99) mg/dL Calcium (8.4-10.2) mg/dL Magnesium (1.6-2.3) mg/dL Alkaline Phosphatase (38-126) U/L Troponin I 2.300 H* (0.000-0.034) ng/mL Total Protein (6.3-8.2) g/dL Albumin (3.5-5.0) g/dL 01/13/18 01/13/18 01/13/18 Range/Units 04:38 04:38 04:38 RBC 3.01 L (4.30-5.90) m/uL Hgb 9.2 L (13.0-17.5) gm/dL Hct 28.3 L (39.0-53.0) % APTT 44.5 H (22.0-30.0) sec BUN 46 H (9-20) mg/dL Creatinine 1.30 H (0.66-1.25) mg/dL Glucose 124 H (74-99) mg/dL POC Glucose (mg/dL) (75-99) mg/dL Calcium 8.0 L (8.4-10.2) mg/dL Magnesium (1.6-2.3) mg/dL Alkaline Phosphatase 37 L (38-126) U/L Troponin I (0.000-0.034) ng/mL Total Protein 5.0 L (6.3-8.2) g/dL Albumin 2.8 L (3.5-5.0) g/dL 01/13/18 01/13/18 Range/Units 04:38 06:50 RBC (4.30-5.90) m/uL Hgb (13.0-17.5) gm/dL Hct (39.0-53.0) % APTT (22.0-30.0) sec BUN (9-20) mg/dL Creatinine (0.66-1.25) mg/dL Glucose (74-99) mg/dL POC Glucose (mg/dL) 158 H (75-99) mg/dL Calcium (8.4-10.2) mg/dL Magnesium 3.0 H (1.6-2.3) mg/dL Alkaline Phosphatase (38-126) U/L Troponin I (0.000-0.034) ng/mL Total Protein (6.3-8.2) g/dL Albumin (3.5-5.0) g/dL - Imaging and Cardiology Chest x-ray: report reviewed, image reviewed Assessment and Plan (1) Coronary artery disease Current Visit: Yes Status: Chronic Code(s): I25.10 - ATHSCL HEART DISEASE OF [place] CORONARY ARTERY W/O ANG PCTRS SNOMED Code(s): 71480702 (2) History of heart artery stent Current Visit: Yes Status: Chronic Code(s): Z95.5 - PRESENCE OF CORONARY ANGIOPLASTY IMPLANT AND GRAFT SNOMED Code(s): 645344948 (3) Hyperlipidemia Current Visit: Yes Status: Chronic Code(s): E78.5 - HYPERLIPIDEMIA, UNSPECIFIED SNOMED Code(s): 22077427 (4) Hypertension Current Visit: Yes Status: Chronic Code(s): I10 - ESSENTIAL (PRIMARY) HYPERTENSION SNOMED Code(s): 48124658 (5) Insulin dependent diabetes mellitus Current Visit: Yes Status: Chronic Code(s): E11.9 - TYPE 2 DIABETES MELLITUS WITHOUT COMPLICATIONS; Z79.4 - [facility] (CURRENT) USE OF INSULIN SNOMED Code(s): 29014480 (6) Obesity Current Visit: Yes Status: Chronic Code(s): E66.9 - OBESITY, UNSPECIFIED SNOMED Code(s): 094805769 (7) Previous myocardial infarction older than 8 weeks Current Visit: No Status: Resolved Code(s): I25.2 - OLD MYOCARDIAL INFARCTION SNOMED Code(s): 0308979 Plan: 1. Continue aspirin, statin, Plavix, subcu heparin, beta jack. Will increase beta jack therapy as tolerated. 2. Continue amiodarone for A. fib prophylaxis. IV heparin initiated per cardiology. Will start anticoagulation tomorrow. 3. Will begin Cozaar 25 mg daily. 4. Wean O2 as tolerated. Encourage incentive spirometry use 10 times every hour. 5. Bronchodilators per Dr. Cuba. 6. Will monitor daily labs and x-rays. 7. GI/DVT prophylaxis. 8. Insulin management per primary care service. 9. Pain management with current medication regimen. 10. Increase activity, up to chair. PT/OT/cardiac rehab following. 11. Will discontinue left pleural chest tube today. 12. More recommendations to follow. Time with Patient: Greater than 30
[2018-01-13] MEDS: LOSARTAN 25 MG TAB PO SCH (12:30)
[2018-01-13 13:02] LABS: Glucose,Whole Blood 120 mg/dL (75-99)
[2018-01-13] MEDS: MAGNESIUM HYDROXIDE 2,400 MG/10 ML CUP PO PRN (15:20)
[2018-01-13 17:58] LABS: Glucose,Whole Blood 136 mg/dL (75-99)
[2018-01-13] MEDS: TAMSULOSIN 0.4 MG CAP.ER.24H PO SCH (19:09)
[2018-01-13] MEDS: CITALOPRAM HYDROBROMIDE 20 MG TAB PO SCH (20:51)
[2018-01-13 20:55] LABS: Glucose,Whole Blood 174 mg/dL (75-99)
[2018-01-13] MEDS: INSULIN NPH 300 UNIT/3 ML VIAL SQ SCH (20:57)
[2018-01-13] MEDS: SENNOSIDES-DOCUSATE SODIUM 1 EACH TAB PO SCH (20:58)
[2018-01-14 02:14] LABS: Glucose,Whole Blood 102 mg/dL (75-99)
[2018-01-14] MEDS: INSULIN ASPART 100 UNIT/ML 1 ML 10 ML VIAL SQ SCH ×8 (02:30→20:46)
[2018-01-14 05:35] LABS: HCT 27.5 % (39.0-53.0); HGB 8.8 gm/dL (13.0-17.5); MCH 29.7 pg (25.0-35.0); MCHC 32.1 g/dL (31.0-37.0); MCV 92.6 fL (80.0-100.0); Mean Platelet Volume 8.8; Platelet Count 197 k/uL (150-450); RBC 2.97 m/uL (4.30-5.90); WBC 9.4 k/uL (3.8-10.6)
[2018-01-14 06:16] LABS: Albumin 2.8 g/dL (3.5-5.0); Potassium 4.8 mmol/L (3.5-5.1); Total Bilirubin 0.8 mg/dL (0.2-1.3)
[2018-01-14] MEDS: METOPROLOL TARTRATE 12.5 MG TAB PO SCH ×2 (06:18→17:43)
[2018-01-14 06:19] LABS: Glucose,Whole Blood 100 mg/dL (75-99)
--- NOTE | 2018-01-14 06:53 | XR ---
EXAMINATION TYPE: XR chest 1V portable DATE OF EXAM: 01/14/2018 HISTORY: post cardiac surgery. REFERENCE: Previous study dated 01/13/2018. FINDINGS: There has been a midline sternotomy. The heart is enlarged. There is right basilar atelecta sis. There is left basilar airspace disease. There are small, bilateral effusions. IMPRESSION: CONTINUING POSTOPERATIVE CHANGE.
[2018-01-14] MEDS: INSULN ASP PRT/INSULIN ASPART 100 UNIT/ML 10 ML VIAL SQ SCH (07:17)
[2018-01-14] MEDS: IPRATROPIUM-ALBUTEROL 3 ML NEB INHALATION SCH ×4 (07:19→19:51)
[2018-01-14 07:28] LABS: Glucose,Whole Blood 101 mg/dL (75-99)
--- NOTE | 2018-01-14 08:49 | P.PN ---
Subjective Progress Note Date: 01/14/18 Principal diagnosis: Unstable angina. Triple vessel coronary artery disease. Previous myocardial infarction with stent placement, insulin-dependent diabetes mellitus with preoperative hemoglobin A1c 6.8%, hypertension, hyperlipidemia, mild COPD with preoperative FEV1 62% of predicted, history of depression, and chronic systolic heart failure with ejection fraction 35-40%, obesity. POD #5 coronary bypass grafting 3 with left internal mammary to the left anterior descending artery, reverse saphenous vein graft off the aorta to the circumflex artery and the posterior descending artery with left greater saphenous vein endoscopic vein harvesting. Clip ligation of the left atrial appendage with a #35 mm AtriClip. Intraoperative transesophageal echocardiogram. Postoperative atrial fibrillation, an unexpected but potential outcome of surgery. Patient is currently sitting up in a recliner in no acute distress. He does still complain of some chest discomfort. Patient is back in sinus bradycardia. Seems a little depressed and discouraged today. Objective - Vital Signs Vital signs: Vital Signs Temp 98.4 F 01/14/18 04:00 Pulse 61 01/14/18 07:37 Resp 20 01/14/18 07:00 BP 139/59 01/14/18 07:00 Pulse Ox 94 L 01/14/18 07:00 Intake & Output 01/13/18 01/14/18 01/14/18 18:59 06:59 18:59 Intake Total 638.001 240 20 Output Total 720 600 Balance -81.999 -360 20 Intake: IV 220 240 20 Lactated Ringers 1,000 ml 220 240 20 @ 20 mls/hr IV .Q24H [facility] Rx#:[id number] Intake, IV Titration 238.001 Amount Heparin Sod,Pork in 0.45% 238.001 NaCl 25,000 unit In 0.45 % NaCl 1 500ml.bag @ 8.1 UNITS/KG/HR 20 mls/hr IV .Q24H [facility] Rx#:[id number] Oral 180 Output: Chest Tube Drainage 20 Left Pleural 20 Urine 700 300 Other 300 Other: Voiding Method Bedside Commode Bedside Commode Urinal Urinal # Voids 1 ABP, PAP, CO, CI - Last Documented Arterial Blood Pressure 94/40 Pulmonary Artery Pressure 39/15 Cardiac Output 7.1 Cardiac Index 2.5 - Constitutional General appearance: Present: cooperative, no acute distress, obese - Respiratory Details: Lungs sounds diminished bilaterally. Respirations even, nonlabored. Able to achieve 750-1000 mL on his incentive spirometry. Currently on 6 L high flow nasal cannula with oxygen saturation 96%. Weak cough. - Cardiovascular Details: S1, S2 present. Regular rate and rhythm, sinus bradycardia on telemetry. A/V epicardial pacemakers present, connected to generator, generator turned off. Sternum stable. Palpable peripheral pulses bilaterally. Trace bilateral lower extremity edema present. No calf pain or tenderness noted. Heart hugger in place with patient demonstrating appropriate use. Antiembolism stockings, SCDs present. - Gastrointestinal Gastrointestinal Comment(s): Abdomen soft, nontender, nondistended, obese. Active bowel sounds present 4 quadrants. Tolerating diet. Positive flatus. - Genitourinary Genitourinary Comment(s): Patient continues to void 100-400 mL clear yellow urine at a time. - Integumentary Integumentary Comment(s): Skin is warm and dry with evidence of good perfusion. Anterior chest incision well approximated, dry intact dressing. Left lower extremity EVH site well approximated. - Neurologic Neurologic: Present: CNII-XII intact - Musculoskeletal Musculoskeletal: Present: gait normal, generalized weakness, strength equal bilaterally - Psychiatric Psychiatric Comment(s): Flat affect. Psychiatric: Present: A&O x's 3 - Allied health notes Allied health notes reviewed: nursing - Labs CBC & Chem 7: 01/14/18 05:21 01/14/18 05:21 Labs: Abnormal Lab Results - Last 24 Hours (Table) 01/13/18 01/13/18 01/13/18 Range/Units 13:00 13:10 17:38 RBC (4.30-5.90) m/uL Hgb (13.0-17.5) gm/dL Hct (39.0-53.0) % APTT 51.0 H (22.0-30.0) sec Chloride (98-107) mmol/L BUN (9-20) mg/dL POC Glucose (mg/dL) 120 H 136 H (75-99) mg/dL Calcium (8.4-10.2) mg/dL Total Protein (6.3-8.2) g/dL Albumin (3.5-5.0) g/dL 01/13/18 01/14/18 01/14/18 Range/Units 20:53 02:11 05:21 RBC 2.97 L (4.30-5.90) m/uL Hgb 8.8 L (13.0-17.5) gm/dL Hct 27.5 L (39.0-53.0) % APTT (22.0-30.0) sec Chloride (98-107) mmol/L BUN (9-20) mg/dL POC Glucose (mg/dL) 174 H 102 H (75-99) mg/dL Calcium (8.4-10.2) mg/dL Total Protein (6.3-8.2) g/dL Albumin (3.5-5.0) g/dL 01/14/18 01/14/18 01/14/18 Range/Units 05:21 05:21 06:17 RBC (4.30-5.90) m/uL Hgb (13.0-17.5) gm/dL Hct (39.0-53.0) % APTT 53.7 H (22.0-30.0) sec Chloride 109 H (98-107) mmol/L BUN 39 H (9-20) mg/dL POC Glucose (mg/dL) 100 H (75-99) mg/dL Calcium 8.0 L (8.4-10.2) mg/dL Total Protein 5.0 L (6.3-8.2) g/dL Albumin 2.8 L (3.5-5.0) g/dL 01/14/18 Range/Units 07:26 RBC (4.30-5.90) m/uL Hgb (13.0-17.5) gm/dL Hct (39.0-53.0) % APTT (22.0-30.0) sec Chloride (98-107) mmol/L BUN (9-20) mg/dL POC Glucose (mg/dL) 101 H (75-99) mg/dL Calcium (8.4-10.2) mg/dL Total Protein (6.3-8.2) g/dL Albumin (3.5-5.0) g/dL - Imaging and Cardiology Chest x-ray: report reviewed, image reviewed Assessment and Plan (1) Coronary artery disease Current Visit: Yes Status: Chronic Code(s): I25.10 - ATHSCL HEART DISEASE OF [place] CORONARY ARTERY W/O ANG PCTRS SNOMED Code(s): 28628425 (2) History of heart artery stent Current Visit: Yes Status: Chronic Code(s): Z95.5 - PRESENCE OF CORONARY ANGIOPLASTY IMPLANT AND GRAFT SNOMED Code(s): 372340477 (3) Hyperlipidemia Current Visit: Yes Status: Chronic Code(s): E78.5 - HYPERLIPIDEMIA, UNSPECIFIED SNOMED Code(s): 18346781 (4) Hypertension Current Visit: Yes Status: Chronic Code(s): I10 - ESSENTIAL (PRIMARY) HYPERTENSION SNOMED Code(s): 48393773 (5) Insulin dependent diabetes mellitus Current Visit: Yes Status: Chronic Code(s): E11.9 - TYPE 2 DIABETES MELLITUS WITHOUT COMPLICATIONS; Z79.4 - [employer] (CURRENT) USE OF INSULIN SNOMED Code(s): 26516885 (6) Obesity Current Visit: Yes Status: Chronic Code(s): E66.9 - OBESITY, UNSPECIFIED SNOMED Code(s): 698762072 (7) Previous myocardial infarction older than 8 weeks Current Visit: No Status: Resolved Code(s): I25.2 - OLD MYOCARDIAL INFARCTION SNOMED Code(s): 3043600 Plan: 1. Continue low dose aspirin, statin, Plavix, Cozaar, beta jack. Will increase beta jack therapy as tolerated. 2. Continue amiodarone for A. fib prophylaxis. Discontinue heparin drip. Will start Eliquis for anticoagulation. 3. Will discontinue epicardial pacemaker wires today. 4. Will give Lasix 20 mg twice today. 5. Wean O2 as tolerated. Encourage incentive spirometry use 10 times every hour. 6. Bronchodilators per Dr. Cuba. 7. Will monitor daily labs and x-rays. 8. GI/DVT prophylaxis. 9. Insulin management per primary care service. 10. Pain management with current medication regimen. 11. Increase activity, ambulate in hallway PT/OT/cardiac rehab following. 12. Dr. Bai consulted for inpatient rehab. 13. More recommendations to follow. Time with Patient: Greater than 30
[2018-01-14] MEDS: FUROSEMIDE 10 MG/ML 2 ML VIAL IV SCH ×2 (09:34→15:45)
[2018-01-14] MEDS: ASPIRIN 81 MG PO SCH (09:35)
[2018-01-14] MEDS: AMIODARONE 200 MG TAB PO SCH ×2 (09:35→20:44)
[2018-01-14] MEDS: LOSARTAN 25 MG TAB PO SCH (09:37)
[2018-01-14] MEDS: PANTOPRAZOLE 40 MG TABLET PO SCH (09:37)
[2018-01-14] MEDS: ATORVASTATIN 40 MG TAB PO SCH (09:38)
[2018-01-14] MEDS: CLOPIDOGREL 75 MG TAB PO SCH (09:38)
--- NOTE | 2018-01-14 09:47 | P.PN ---
Subjective Progress Note Date: 01/14/18 Principal diagnosis: Status post bypass grafting Progress note dated 01/11/2018 72-year-old male status post three-vessel bypass grafting, postoperative day # 2. The patient has a previous history of CAD with previous myocardial infarctions. He is a lifetime nonsmoker has history of diabetes hypertension hyperlipidemia ischemic cardiopathy CVA BPH and anxiety/depression. The patient seemed to be progressing nicely. On nasal O2. We focused on the importance of deep breathing coughing clearing of secretions and use of incentive spirometer every hour. The patient denies any chest pain or chest discomfort. No shortness of breath difficulty breathing coughing wheezing or phlegm production. This patient took a bit longer to extubate. Doing reasonably well today. Seen by Dr. Liu today. Progress note dated 01/12/2018 72-year-old male status post three-vessel bypass grafting, postop day #3. The patient has a history of CAD with previous myocardial infarction. He also has a history of diabetes, hypertension, hyperlipidemia, ischemic cardiopathy myopathy, CVA, BPH and anxiety/depression. The patient currently is on Venturi mask 50%. The patient is now currently postop day #3. The patient did develop chest pain through the night and ST segment elevation. The patient went back to the catheterization lab. The grafts are currently patent. The patient was placed on IV heparin. Is on a saline IV at 70 mL an hour. The patient's currently back in the intensive care unit. Seems relatively comfortable. No chest pain currently. Progress note dated 01/13/2018 72-year-old male postop day #4, status post bypass grafting, three-vessel. The patient has history of CAD and previous myocardial infarction. Also suffers some diabetes, hypertension, hyperlipidemia, ischemic cardiomyopathy, CVA, BPH and anxiety/depression. The patient to go back to the catheterization laboratory. The grafts were found to be patent. He was placed on IV heparin. He remains on IV heparin. He is on 8 L high flow. Getting a saline IV at 30 mL an hour. The patient has been slow to improve. Doing better thousand on his incentive spirometer. Denies any chest pain or chest discomfort. Denies any shortness of breath. Does have pain at the surgical site. Chest x-ray shows typical postoperative changes with some bibasilar atelectasis and small effusions. White count is 10.6, hemoglobin 9.2, hematocrit 28.3 and platelet count 169,000. PTT is 44.5 reflecting the IV heparin. Sodium potassium chloride CO2 anion gap all normal. BUN and creatinine were 46 and 1.30. The rest of the labs look okay. Progress note dated 01/14/2018 72-year-old male, postop day #5, status post bypass grafting, three-vessel. The patient has a history of CAD and previous myocardial infarction. Also has a history of diabetes, hypertension, hyperlipidemia, ischemic cardiomyopathy, CVA, BPH and anxiety/depression. The patient had a sophia postoperative course characterized by chest pain and ST/T wave changes. He went back to the catheterization laboratory. His recent grafts were found to be patent. He was placed on IV heparin was just turned off today. Currently he is on O2 at 5 L by nasal cannula. He is getting a saline IV at KVO. He is now in sinus rhythm. The patient is doing about 1000 mL on the incentive spirometer. Chest x-ray shows some bibasilar atelectasis. White count 9.4, hemoglobin and hematocrit were 8.8 and 27.5, respectively. Sodium and potassium normal. Chlorides 109. Bicarbonate normal. BUN was 39 with a creatinine of 1.18. Objective - Vital Signs Vital signs: Vital Signs Temp 98.4 F 01/14/18 04:00 Pulse 61 01/14/18 07:37 Resp 20 01/14/18 07:00 BP 139/59 01/14/18 07:00 Pulse Ox 94 L 01/14/18 07:00 Intake & Output 01/13/18 01/14/18 01/14/18 18:59 06:59 18:59 Intake Total 638.001 240 20 Output Total 720 600 Balance -81.999 -360 20 Intake: IV 220 240 20 Lactated Ringers 1,000 ml 220 240 20 @ 20 mls/hr IV .Q24H [facility] Rx#:[id number] Intake, IV Titration 238.001 Amount Heparin Sod,Pork in 0.45% 238.001 NaCl 25,000 unit In 0.45 % NaCl 1 500ml.bag @ 8.1 UNITS/KG/HR 20 mls/hr IV .Q24H [facility] Rx#:[id number] Oral 180 Output: Chest Tube Drainage 20 Left Pleural 20 Urine 700 300 Other 300 Other: Voiding Method Bedside Commode Bedside Commode Urinal Urinal # Voids 1 ABP, PAP, CO, CI - Last Documented Arterial Blood Pressure 94/40 Pulmonary Artery Pressure 39/15 Cardiac Output 7.1 Cardiac Index 2.5 - Exam No acute distress, oriented 3. Nasal O2 in place. HEENT examination is grossly unremarkable. Mucous membranes are moist. No oral lesions. Neck supple. Full range of motion. No adenopathy thyromegaly or neck vein distention. Cardiovascular examination reveals regular rhythm and rate. S1-S2 normal. No S3 or S4. No discernible murmur noted. Lungs reveal a few scattered rhonchi. Breath sounds are improved. There is some mild diffuse rhonchi. No wheezes are appreciated. Crackles are noted a bit at the left base. Abdomen soft bowel sounds are heard. No masses or tenderness. Extremities are intact. No cyanosis clubbing or edema. Skin is without rash or lesion. Neurologic examination is brief but nonfocal. - Labs CBC & Chem 7: 01/14/18 05:21 01/14/18 05:21 Labs: Abnormal Lab Results - Last 24 Hours (Table) 01/13/18 01/13/18 01/13/18 Range/Units 13:00 13:10 17:38 RBC (4.30-5.90) m/uL Hgb (13.0-17.5) gm/dL Hct (39.0-53.0) % APTT 51.0 H (22.0-30.0) sec Chloride (98-107) mmol/L BUN (9-20) mg/dL POC Glucose (mg/dL) 120 H 136 H (75-99) mg/dL Calcium (8.4-10.2) mg/dL Total Protein (6.3-8.2) g/dL Albumin (3.5-5.0) g/dL 01/13/18 01/14/18 01/14/18 Range/Units 20:53 02:11 05:21 RBC 2.97 L (4.30-5.90) m/uL Hgb 8.8 L (13.0-17.5) gm/dL Hct 27.5 L (39.0-53.0) % APTT (22.0-30.0) sec Chloride (98-107) mmol/L BUN (9-20) mg/dL POC Glucose (mg/dL) 174 H 102 H (75-99) mg/dL Calcium (8.4-10.2) mg/dL Total Protein (6.3-8.2) g/dL Albumin (3.5-5.0) g/dL 01/14/18 01/14/18 01/14/18 Range/Units 05:21 05:21 06:17 RBC (4.30-5.90) m/uL Hgb (13.0-17.5) gm/dL Hct (39.0-53.0) % APTT 53.7 H (22.0-30.0) sec Chloride 109 H (98-107) mmol/L BUN 39 H (9-20) mg/dL POC Glucose (mg/dL) 100 H (75-99) mg/dL Calcium 8.0 L (8.4-10.2) mg/dL Total Protein 5.0 L (6.3-8.2) g/dL Albumin 2.8 L (3.5-5.0) g/dL 01/14/18 Range/Units 07:26 RBC (4.30-5.90) m/uL Hgb (13.0-17.5) gm/dL Hct (39.0-53.0) % APTT (22.0-30.0) sec Chloride (98-107) mmol/L BUN (9-20) mg/dL POC Glucose (mg/dL) 101 H (75-99) mg/dL Calcium (8.4-10.2) mg/dL Total Protein (6.3-8.2) g/dL Albumin (3.5-5.0) g/dL Assessment and Plan Assessment: Assessment Postop day #5 status post three-vessel bypass grafting Postoperative ventilator management Marginal ongoing respiratory status still requiring significant supplemental oxygen. Chest pain and ST segment elevation, requiring a trip back to the [facility], grafts patent History of CAD with previous myocardial infarction Lifelong nontobacco user History of diabetes mellitus, type II History of hypertension History of hyperlipidemia Ischemic cardiomyopathy with EF of 35-40% History of CVA/TIA BPH History of anxiety/depression Plan: Plan dated January 11, 2018 The patient did develop atrial fibrillation treated. Respiratory status is stable. Remains on oxygen. We'll continue to recommend deep breathing coughing and clearing his secretions along use of hourly incentive spirometer. Chest x-rays reviewed. Labs medications other data is reviewed. White count 12.6, he will become 0.2, hematocrit 30.1, and platelet count 1 28,000. Sodium 134, potassium chloride CO2 anion gap all normal. BUN and creatinine are 28 and 1.40 respectively. Critical care time 32 minutes Plan dated 01/12/2018 The patient was doing relatively well until sometime early this morning with the patient developed some ST changes and some chest discomfort. The patient went back to the catheterization laboratory. His grafts are currently patent. The patient was placed on IV heparin. The patient is on 50% Venturi mask. The patient's back in the intensive care unit. We'll continue to watch him very carefully. White blood count is 11.5, hemoglobin 9.9, hematocrit 31.1 and platelet count 145,000. Electrolytes were normal. Anion gap is normal. BUN and creatinine were 40 and 1.60 respectively. Critical care time 32 minutes Plan dated 01/13/2018 The patient is still on 8 L high flow oxygen. Today is postop day #4, three- vessel bypass grafting. He is on IV heparin via weightbase protocol. His IV is saline at 30 mL an hour. Chest x-ray shows only minimal improvement. The patient is improving in my opinion but very slowly. We'll continue to follow. Prognosis is very guarded this time. We do recommend ongoing use of incentive spirometer every hour. We also recommend deep breathing coughing and clearing secretions. We'll continue with bronchodilators. Prognosis is guarded. Additional recommendations and suggestions are forthcoming. Critical care time 31 minutes Plan dated 01/14/2018 The patient remains on 5 L nasal cannula. The heparin drip was just turned off. He is now in sinus rhythm. He is postop day #5. The patient continues to work on his incentive spirometer every hour. We still recommend deep breathing coughing and clearing of secretions. We'll continue with bronchodilators. Labs x-rays and medications are reviewed. He does seem to be doing a bit better. Not likely to leave the unit as yet. Critical care time 33 minutes Time with Patient: Greater than 30
--- NOTE | 2018-01-14 10:30 | PN ---
PROGRESS NOTE Mr. Friedman is a 72-year-old male who is status post coronary artery bypass grafting. He had EKG changes that required repeat cardiac catheterization. His grafts were open. He is doing well at this time. His breathing is stable. He denies any symptoms of chest pain. He denies any dizziness. He has some soreness in the chest, that is improved. His breathing continues same with minimal dyspnea. He is back in sinus mechanism. He continues to be on aspirin once a day, amiodarone 400 mg twice a day, Eliquis 5 mg twice a day, Plavix 75 mg daily, losartan 25 mg daily. PHYSICAL EXAMINATION: Blood pressure 126/50 with a heart rate in the 60. Lungs with mild decrease in breath sounds at bases. HEART: Regular rate and rhythm S1, S2. No S3. No rub. ABDOMEN: Soft and nontender. Extremities: No significant edema. LAB DATA: BUN and creatinine 39 and 1.18, potassium 4.8, hemoglobin of 8.8. IMPRESSION: 1. Status post coronary artery bypass grafting. 2. Paroxysmal atrial fibrillation back in sinus mechanism. 3. Episode of chest discomfort, improving. 4. Ischemic cardiomyopathy. 5. Hypertension. 6. Hyperlipidemia. RECOMMENDATION: We will continue present therapy, increase his level of activity. Follow his blood pressure and his renal function to adjust the dose of the losartan as needed. MMODL / IJN: [id number] /
[2018-01-14 12:31] LABS: Glucose,Whole Blood 233 mg/dL (75-99)
[2018-01-14] MEDS ORDERED: ALPRAZolam 0.25 MG TAB PO PRN (13:23)
[2018-01-14] MEDS: MAGNESIUM HYDROXIDE 2,400 MG/10 ML CUP PO PRN (15:43)
[2018-01-14 17:33] LABS: Glucose,Whole Blood 161 mg/dL (75-99)
[2018-01-14] MEDS: TAMSULOSIN 0.4 MG CAP.ER.24H PO SCH (18:28)
[2018-01-14] MEDS: HYDROcodone/APAP 5-325MG 1 EACH TAB PO PRN (19:51)
[2018-01-14 20:42] LABS: Glucose,Whole Blood 158 mg/dL (75-99)
[2018-01-14] MEDS: APIXABAN 5 MG TAB PO SCH (20:44)
[2018-01-14] MEDS: CITALOPRAM HYDROBROMIDE 20 MG TAB PO SCH (20:45)
[2018-01-14] MEDS: INSULIN NPH 300 UNIT/3 ML VIAL SQ SCH (20:45)
[2018-01-14] MEDS: SENNOSIDES-DOCUSATE SODIUM 1 EACH TAB PO SCH (20:47)
[2018-01-14] MEDS ORDERED: APIXABAN 2.5 MG TABLET PO SCH (21:00)
[2018-01-14] MEDS ORDERED: ARTIFICIAL TEARS-HYPROMELLOSE DROPS 15 ML BTL BOTH EYES PRN (21:34)
[2018-01-15 01:45] LABS: Glucose,Whole Blood 91 mg/dL (75-99)
[2018-01-15] MEDS: INSULIN ASPART 100 UNIT/ML 1 ML 10 ML VIAL SQ SCH ×8 (01:45→20:47)
[2018-01-15] MEDS: METOPROLOL TARTRATE 12.5 MG TAB PO SCH ×2 (05:48→18:02)
[2018-01-15 06:03] LABS: HGB 8.6 gm/dL (13.0-17.5); MCH 28.5 pg (25.0-35.0); MCHC 30.9 g/dL (31.0-37.0); MCV 92.3 fL (80.0-100.0); Mean Platelet Volume 8.5; Platelet Count 235 k/uL (150-450); RBC 3.03 m/uL (4.30-5.90); WBC 7.9 k/uL (3.8-10.6)
[2018-01-15 06:23] LABS: Albumin 2.8 g/dL (3.5-5.0); Potassium 4.3 mmol/L (3.5-5.1); Total Bilirubin 0.9 mg/dL (0.2-1.3); Total Protein 5.1 g/dL (6.3-8.2)
[2018-01-15] MEDS: HYDROcodone/APAP 5-325MG 1 EACH TAB PO PRN (06:24)
[2018-01-15 06:37] LABS: Glucose,Whole Blood 92 mg/dL (75-99)
--- NOTE | 2018-01-15 06:43 | P.CONS ---
History of Present Illness - Chief Complaint Cardiac debility - History of Present Illness I had the opportunity to see patient for inpatient rehab consultation with regard to cardiac debility. Patient admitted to [facility] January 09 with known cardiac disease, underwent three-vessel coronary bypass. Seen in ICU by pulmonary, Dr. Cuba. Chest x-rays followed for postoperative change. PT reports moderate assistance to person for functional mobility. OT prescribed. Previous functional history as elicited from patient: 72-year-old left-handed white male who is and lives in one floor home with . Retired. Describes independent sugars cooking and laundry as well as driving. Independent with standing shower and gait without device. Doesn't smoke or drink. Dr. Barr is regular doctor. Family history of cancer in father. Review of Systems Review of systems: ENT: Denies sneezes or discharge. Eyes: Denies discharge or photophobia. Cardiac: At least sternal chest discomfort. Pulmonary: shortness of breath. Gastrointestinal: Denies nausea, emesis, constipation, diarrhea. Genitourinary: Denies discharge or frequency. Musculoskeletal: Denies muscle or bone aches. Neurologic: At least mild generalized weakness. Endocrine: Denies shakes or sweats. Oncology: Denies cancers. Dermatologic: Denies rash, itching, pruritus. ALLERGY/immunology: Denies sneezes, rashes. Past Medical History Past Medical History: Coronary Artery Disease (CAD), CVA/TIA, Diabetes Mellitus , Hyperlipidemia, Hypertension, Myocardial Infarction (VA), Prostate Disorder Additional Past Medical History / Comment(s): SEE H & P PROVIDED BY DR. EVA SILVERMAN. SOME UPPER RIGHT CHEST PAIN. HX OF TIA, ENLARGED PROSTATE, VA X3 Last Myocardial Infarction Date:: 10/01/2011 History of Any Multi-Drug Resistant Organisms: None Reported Past Surgical History: Heart Catheterization With Stent, Hernia Repair Additional Past Surgical History / Comment(s): INGUINAL HERNIA, RT HEEL SURGERY WITH HARDWARE. BILATERAL CATARACTS. Past Anesthesia/Blood Transfusion Reactions: No Reported Reaction Additional Past Anesthesia/Blood Transfusion Reaction / Comm: no hx blood transfusion Date of Last Stent Placement:: 10/01/2011 Smoking Status: Never smoker - Past Family History Mother Family Medical History: Cancer, Diabetes Mellitus Additional Family Medical History / Comment(s): pancreas Father Family Medical History: Cancer Medications and Allergies Home Medications Medication Instructions Recorded Confirmed Type ALPRAZolam [Xanax] 0.25 mg PO BID 03/21/14 01/09/18 History Aspirin EC [Ecotrin Low Dose] 81 mg PO HS 03/21/14 01/09/18 History Citalopram Hydrobromide [CeleXA] 40 mg PO HS 03/21/14 01/09/18 History Losartan [Cozaar] 50 mg PO QAM 03/21/14 01/09/18 History Multivitamins, Thera [Multivitamin 1 tab PO HS 03/21/14 01/09/18 History (formulary)] Simvastatin [Zocor] 40 mg PO QAM 03/21/14 01/09/18 History Spironolactone [Aldactone] 25 mg PO QAM 03/21/14 01/09/18 History metFORMIN HCL [Glucophage] 1,000 mg PO BID 03/21/14 01/09/18 History Insulin NPH Hum/Reg Insulin Hm 64 unit SQ HS 12/08/17 01/09/18 History [NovoLIN 70-30 100 UNIT/ML VIAL] Insulin NPH Hum/Reg Insulin Hm 70 unit SQ QAM 12/08/17 01/09/18 History [NovoLIN 70-30 100 UNIT/ML VIAL] Naproxen [Naprosyn] 250 mg PO BID 12/08/17 01/09/18 History Tamsulosin [Flomax] 0.4 mg PO BID 12/08/17 01/09/18 History guaiFENesin [Mucinex] 600 mg PO BID 12/08/17 01/09/18 History Glucosamine-Chondr 500-400Mg 1 tab PO Q12HR 01/04/18 01/09/18 History Clopidogrel [Plavix] 75 mg PO DAILY 01/08/18 01/09/18 History Polyethylene Glycol 3350 [Miralax] 17 gm PO DAILY PRN 01/08/18 01/09/18 History Allergies Allergy/AdvReac Type Severity Reaction Status Date / Time No Known Allergies Allergy Verified 01/09/18 13:13 Physical Exam Vitals: Vital Signs Temp Pulse Resp BP Pulse Ox 01/15/18 06:00 60 20 136/50 93 L 01/15/18 05:00 57 L 28 H 148/53 94 L 01/15/18 04:00 98.1 F 63 22 145/46 92 L 01/15/18 03:00 53 L 24 119/49 93 L 01/15/18 02:00 63 20 130/47 92 L 01/15/18 01:00 64 18 120/48 93 L 01/15/18 00:00 98.4 F 60 25 H 138/51 93 L 01/14/18 23:00 60 25 H 137/46 92 L 01/14/18 22:04 69 28 H 130/45 91 L 01/14/18 22:00 67 28 H 130/45 92 L 01/14/18 21:00 69 24 149/49 93 L 01/14/18 20:01 64 01/14/18 20:00 98.0 F 65 22 140/66 97 01/14/18 19:52 72 01/14/18 19:00 70 44 H 111/55 93 L 01/14/18 18:00 85 32 H 157/86 88 L 01/14/18 17:00 98.8 F 73 23 156/60 90 L 01/14/18 16:00 72 25 H 147/56 94 L 01/14/18 15:37 65 01/14/18 15:24 62 01/14/18 15:00 67 12 93 L 01/14/18 14:00 64 20 149/56 91 L 01/14/18 13:00 66 26 H 149/56 93 L 01/14/18 12:00 64 23 131/59 93 L 01/14/18 11:12 61 01/14/18 11:00 61 20 131/59 94 L 01/14/18 10:59 60 01/14/18 10:00 64 25 H 126/54 92 L 01/14/18 09:00 64 25 H 125/54 01/14/18 08:00 98.6 F 60 20 128/56 96 01/14/18 07:37 61 01/14/18 07:20 59 L 01/14/18 07:00 60 20 139/59 94 L Intake and Output 01/14/18 01/14/18 01/15/18 14:59 22:59 06:59 Intake Total 730 1110 560 Output Total 600 1225 250 Balance 130 -115 310 Intake: IV 160 160 160 .9 60 160 Lactated Ringers 1,000 ml 20 @ 20 mls/hr IV .Q24H [facility] Rx#:[id number] Sodium Chloride 0.9% 1, 140 100 000 ml @ 75 mls/hr IV . [id number] [facility] Rx#:[id number] Oral 570 950 400 Output: Urine 600 1225 250 Other: Voiding Method Urinal Urinal # Voids 1 Weight 128.4 kg Skin: Good color, texture, turgor. General: Overweight build and comfortable appearance. Head: Normocephalic, atraumatic. Eyes: Symmetric. Pupils equal round. Ears: Symmetric. Hearing within normal limits. Mouth: Clear. Neck: Supple. Carotid without bruit. Cardiac: Regular rate and rhythm. Chest clean and dressed. Wearing harness. Lungs: Clear anteriorly and posteriorly. Abdomen: Soft active nontender. Extremities: Normal tone. Neurological: Mental status: Alert, cooperative, pleasant. Cranial nerves: Symmetric facial tone and trapezius. Motor: Active movement all 4 limbs. Sensation: Intact throughout. DTRs: Symmetric and equal throughout. Mobility: Receiving chest x-ray in ICU and did not attempt to sit or stand. Results CBC & Chem 7: 01/15/18 05:40 01/15/18 05:40 Labs: Abnormal Lab Results - Last 24 Hours (Table) 01/14/18 01/14/18 01/14/18 Range/Units 07:26 12:28 17:31 RBC (4.30-5.90) m/uL Hgb (13.0-17.5) gm/dL Hct (39.0-53.0) % MCHC (31.0-37.0) g/dL BUN (9-20) mg/dL Glucose (74-99) mg/dL POC Glucose (mg/dL) 101 H 233 H 161 H (75-99) mg/dL Calcium (8.4-10.2) mg/dL Total Protein (6.3-8.2) g/dL Albumin (3.5-5.0) g/dL 01/14/18 01/15/18 01/15/18 Range/Units 20:40 05:40 05:40 RBC 3.03 L (4.30-5.90) m/uL Hgb 8.6 L (13.0-17.5) gm/dL Hct 28.0 L (39.0-53.0) % MCHC 30.9 L (31.0-37.0) g/dL BUN 32 H (9-20) mg/dL Glucose 72 L (74-99) mg/dL POC Glucose (mg/dL) 158 H (75-99) mg/dL Calcium 8.0 L (8.4-10.2) mg/dL Total Protein 5.1 L (6.3-8.2) g/dL Albumin 2.8 L (3.5-5.0) g/dL Assessment and Plan (1) Coronary artery disease Current Visit: Yes Status: Chronic Code(s): I25.10 - ATHSCL HEART DISEASE OF UTE CORONARY ARTERY W/O ANG PCTRS SNOMED Code(s): 02692176 Plan: Impression: 1. Cardiac debility. 2. Three-vessel coronary bypass. 4. Coronary artery disease with history of VA and stent. 4. Diabetes. 5. Hypertension. 6. Dyslipidemia. 7. History of stroke. 8. Prostate disorder. Comments and plan: At this time PT ongoing and OT prescribed. Follow therapies with yourself for possible need and benefit of inpatient rehab.
--- NOTE | 2018-01-15 07:13 | PN ---
PROGRESS NOTE PROGRESS NOTE DATED: 01/13/2018 DATE OF SERVICE: 01/13/2018 CHIEF COMPLAINT: Re-evaluation. HISTORY OF PRESENT ILLNESS: This 72-year-old gentleman was seen in ICU. The patient is post CABG. He has actually been doing better than yesterday morning when he had chest pain and required further evaluation including a cardiac cath. He denies any chest pain. He still has a chest tube in place. REVIEW OF SYSTEMS: NEURO: Denies any headaches. Occasional mild dizziness. PSYCH: No anxiety. Has a history of chronic depression, controlled. CARDIAC: Denies angina, palpitations. The patient continues to be in atrial flutter with a slow ventricular rate. Denies any orthopnea or PND. The patient is on oxygen. RESPIRATORY: Some cough. Has a chest tube. Does have no wheezing. GI: No nausea, vomiting, decreased appetite. No abdominal pain. No diarrhea. No bowel movement. : No symptoms of dysuria or hematuria. EXTREMITIES: No pain. Some edema. CONSTITUTIONAL: No fever or chills. PHYSICAL EXAMINATION: Pleasant gentleman at present in no distress. Vital signs revealed patient has been afebrile, respirations 21, pulse and blood pressure 142/47, pulse ox of 96% on 6 L. HEENT: Normocephalic. NECK: Supple. CHEST EXAMINATION: Decreased air flow left base and at right base. CARDIAC: Distant heart sounds S1, S2 with no gallops or rubs. Rhythm is . ABDOMEN: Soft. Bowel sounds present. Extremities reveal 1+ edema. NEUROLOGIC: Awake, alert, oriented. Moves both upper and lower extremities adequately. LABORATORY ASSESSMENT: CBC which revealed a hemoglobin of 9.2, white count 10.6, platelets 169. PTT is 44.5. Electrolytes normal. BUN 46, creatinine 1.3. Glucose 124. ASSESSMENT: 1. Diabetes mellitus, adequately controlled. 2. Acute kidney injury, improving. 3. Anemia secondary to acute blood loss post surgery. 4. Status post coronary artery bypass grafting. 5. Atrial flutter. PLAN: Continue present medical regimen. Patient's condition discussed with the patient. Prognosis guarded. MMODL / IJN: [id number] /
[2018-01-15] MEDS: IPRATROPIUM-ALBUTEROL 3 ML NEB INHALATION SCH ×4 (07:21→19:54)
[2018-01-15] MEDS ORDERED: guaiFENesin 600 MG TABLET.ER PO PRN (08:20)
[2018-01-15] MEDS: INSULN ASP PRT/INSULIN ASPART 100 UNIT/ML 10 ML VIAL SQ SCH (08:20)
--- NOTE | 2018-01-15 08:34 | XR ---
EXAMINATION TYPE: XR chest 1V portable DATE OF EXAM: 01/15/2018 COMPARISON: 01/14/2018 HISTORY: Post cardiac surgery TECHNIQUE: Single frontal view of the chest is obtained. FINDINGS: Bilateral consolidation and pleural effusion. No sizable pneumothorax. Rib deformities are stable. Heart size unchanged. IMPRESSION: Postoperative changes with persistent pleural parenchymal findings.
--- NOTE | 2018-01-15 09:16 | P.PN ---
Subjective Progress Note Date: 01/15/18 On today's evaluation of 01/15/2018 the patient is postop day #6. The patient is post coronary bypass surgery. The patient presented with chest pain and further investigation showed multivessel coronary artery disease and the patient underwent coronary artery bypass surgery. The patient also has history of hypertension, diabetes, hyperlipidemia, CHF, CVA, BPH, chronic anxiety and depression. Postop, the patient went into some ongoing ST segment changes and chest pain. At that point he had a repeat cardiac catheterization on 2017 and the patient was found to have patent grafts and the chest pain that he was having was possibly pericarditis versus smaller distal clots that cannot be possibly excluded. No intervention was done. The patient is currently free of any chest pain. He also developed an episode of bradycardia yesterday and this was attributed to medication. This was sinus bradycardia the patient was taken amiodarone 400 mg by mouth twice a day in addition to metoprolol. The my overall was held and currently is restarted lower dose of 12.5 mg by mouth twice a day. Currently is in sinus mechanism. He has an adequate urine output. Surgical wound site is dry clean and intact. He is on a combination of aspirin, Plavix and Eliquis and his platelet count is within normal limits. He is a small hematoma in his right thigh area which is essentially postsurgical finding. He did develop also an acute kidney injury postop that improved and creatinine is down to 1.1. He is tolerating his diet. No other complaints otherwise for now. Objective - Vital Signs Vital signs: Vital Signs Temp 98.1 F 01/15/18 04:00 Pulse 64 01/15/18 07:32 Resp 19 01/15/18 07:00 BP 165/62 01/15/18 07:00 Pulse Ox 91 L 01/15/18 07:00 Intake & Output 01/14/18 01/15/18 01/15/18 18:59 06:59 18:59 Intake Total 1380 1020 20 Output Total 1750 325 100 Balance -370 695 -80 Weight 128.4 kg Intake: IV 260 220 20 .9 220 20 Lactated Ringers 1,000 ml 20 @ 20 mls/hr IV .Q24H [facility] Rx#:[id number] Sodium Chloride 0.9% 1, 240 000 ml @ 75 mls/hr IV . [id number] [facility] Rx#:[id number] Oral 1120 800 Output: Urine 1750 325 100 Other: Voiding Method Urinal # Voids 1 ABP, PAP, CO, CI - Last Documented Arterial Blood Pressure 94/40 Pulmonary Artery Pressure 39/15 Cardiac Output 7.1 Cardiac Index 2.5 - Exam - Constitutional General appearance: Present: cooperative, no acute distress, obese - Respiratory Details: Lungs sounds diminished bilaterally. Respirations even, nonlabored. Able to achieve 750-1000 mL on his incentive spirometry. Currently on 5 L about 2 by nasal cannula. He is using incentive spirometer. - Cardiovascular Details: S1, S2 present. Regular rate and rhythm, sinus bradycardia on telemetry. A/V epicardial pacemakers present, connected to generator, generator turned off. Sternum stable. Palpable peripheral pulses bilaterally. Trace bilateral lower extremity edema present. No calf pain or tenderness noted. Heart hugger in place with patient demonstrating appropriate use. Antiembolism stockings, SCDs present. - Gastrointestinal Gastrointestinal Comment(s): Abdomen soft, nontender, nondistended, obese. Active bowel sounds present 4 quadrants. Tolerating diet. Positive flatus. - Genitourinary Genitourinary Comment(s): Patient continues to void 100-400 mL clear yellow urine at a time. - Integumentary Integumentary Comment(s): Skin is warm and dry with evidence of good perfusion. Anterior chest incision well approximated, dry intact dressing. Left lower extremity EVH site well approximated. - Neurologic Neurologic: Present: CNII-XII intact, the patient is awake and alert 3 and there is no focal neurological deficit at this point - Musculoskeletal Musculoskeletal: Present: gait normal, generalized weakness, strength equal bilaterally - Psychiatric No anxiety or depression or delirium - Labs CBC & Chem 7: 01/15/18 05:40 01/15/18 05:40 Labs: Abnormal Lab Results - Last 24 Hours (Table) 01/14/18 01/14/18 01/14/18 Range/Units 12:28 17:31 20:40 RBC (4.30-5.90) m/uL Hgb (13.0-17.5) gm/dL Hct (39.0-53.0) % MCHC (31.0-37.0) g/dL BUN (9-20) mg/dL Glucose (74-99) mg/dL POC Glucose (mg/dL) 233 H 161 H 158 H (75-99) mg/dL Calcium (8.4-10.2) mg/dL Troponin I (0.000-0.034) ng/mL Total Protein (6.3-8.2) g/dL Albumin (3.5-5.0) g/dL 01/15/18 01/15/18 01/15/18 Range/Units 05:40 05:40 05:40 RBC 3.03 L (4.30-5.90) m/uL Hgb 8.6 L (13.0-17.5) gm/dL Hct 28.0 L (39.0-53.0) % MCHC 30.9 L (31.0-37.0) g/dL BUN 32 H (9-20) mg/dL Glucose 72 L (74-99) mg/dL POC Glucose (mg/dL) (75-99) mg/dL Calcium 8.0 L (8.4-10.2) mg/dL Troponin I 1.230 H* (0.000-0.034) ng/mL Total Protein 5.1 L (6.3-8.2) g/dL Albumin 2.8 L (3.5-5.0) g/dL Assessment and Plan Plan: Assessment 1 coronary artery disease, multivessel, post coronary artery bypass surgery and the patient is postop day #6 2 postoperative chest pain, likely due to an underlying component of mild pericarditis and a repeat cardiac catheterization showed patent grafts 3 diabetes mellitus type 2 4 paroxysmal atrial fibrillation status post atrial appendage clipping and the patient is currently in a sinus mechanism with a controlled rate and he is on anticoagulation with Eliquis. 5 transient bradycardia, recovered, still on a combination of metoprolol and amiodarone 6 cardiomyopathy likely of an ischemic type with an ejection fraction of 35-40% preoperatively 7 BPH 8 history of CVA/TIA 9 chronic anxiety/depression 10 small bilateral pleural effusion and the patient is still being diuresis with IV Lasix. The patient is oxygen dependent at 5 L/m nasal cannula. Plan Continued IV Lasix. Monitor the cardiac rhythm the patient is currently in a sinus mechanism. Continue the amiodarone and the metoprolol at a lower dose of 12.5 mg by mouth twice a day. Continue anticoagulation including the Eliquis. Continue aspirin and Plavix. Incentive spirometer. Wean down the FiO2 as tolerated. Chest x-ray was reviewed. We'll continue to follow and make further recommendations based on overall progress.
[2018-01-15] MEDS: AMIODARONE 200 MG TAB PO SCH ×2 (09:32→20:46)
[2018-01-15] MEDS: ATORVASTATIN 40 MG TAB PO SCH (09:33)
[2018-01-15] MEDS: APIXABAN 5 MG TAB PO SCH ×2 (09:33→20:46)
[2018-01-15] MEDS: ASPIRIN 81 MG PO SCH (09:33)
[2018-01-15] MEDS: PANTOPRAZOLE 40 MG TABLET PO SCH (09:33)
[2018-01-15] MEDS: TAMSULOSIN 0.4 MG CAP.ER.24H PO SCH ×2 (09:33→20:46)
[2018-01-15] MEDS: FUROSEMIDE 10 MG/ML 2 ML VIAL IV SCH ×2 (09:34→16:15)
[2018-01-15] MEDS: CLOPIDOGREL 75 MG TAB PO SCH (09:34)
--- NOTE | 2018-01-15 09:35 | P.PN ---
Subjective Progress Note Date: 01/15/18 Principal diagnosis: Unstable angina. Triple vessel coronary artery disease. Previous myocardial infarction with stent placement, insulin-dependent diabetes mellitus with preoperative hemoglobin A1c 6.8%, hypertension, hyperlipidemia, mild COPD with preoperative FEV1 62% of predicted, history of depression, and chronic systolic heart failure with ejection fraction 35-40%, obesity. POD #6 coronary bypass grafting 3 with left internal mammary to the left anterior descending artery, reverse saphenous vein graft off the aorta to the circumflex artery and the posterior descending artery with left greater saphenous vein endoscopic vein harvesting. Clip ligation of the left atrial appendage with a #35 mm AtriClip. Intraoperative transesophageal echocardiogram. Postoperative atrial fibrillation, an unexpected but potential outcome of surgery. Patient is currently sitting up in a recliner in no acute distress. He does still complain of some chest discomfort but it is controlled. Patient is back in sinus bradycardia. Continues to be a little depressed, feels that he should be farther along in his recovery process than he is. Objective - Vital Signs Vital signs: Vital Signs Temp 98.1 F 01/15/18 08:00 Pulse 66 01/15/18 09:00 Resp 26 H 01/15/18 09:00 BP 106/47 01/15/18 09:00 Pulse Ox 93 L 01/15/18 09:00 Intake & Output 01/14/18 01/15/18 01/15/18 18:59 06:59 18:59 Intake Total 1380 1020 60 Output Total 1750 325 300 Balance -370 695 -240 Weight 128.4 kg Intake: IV 260 220 60 .9 220 60 Lactated Ringers 1,000 ml 20 @ 20 mls/hr IV .Q24H [facility] Rx#:[id number] Sodium Chloride 0.9% 1, 240 000 ml @ 75 mls/hr IV . [id number] [facility] Rx#:[id number] Oral 1120 800 Output: Urine 1750 325 300 Other: Voiding Method Urinal # Voids 1 ABP, PAP, CO, CI - Last Documented Arterial Blood Pressure 94/40 Pulmonary Artery Pressure 39/15 Cardiac Output 7.1 Cardiac Index 2.5 - Constitutional General appearance: Present: cooperative, no acute distress, obese - Respiratory Details: Lungs sounds diminished bilaterally. Respirations even, nonlabored. Able to achieve 7827-7548 mL on his incentive spirometry. Currently on 5 L high flow nasal cannula with oxygen saturation 95%. Weak cough. - Cardiovascular Details: S1, S2 present. Slow but regular rate and rhythm, sinus bradycardia on telemetry. Sternum stable. Palpable peripheral pulses bilaterally. Trace bilateral lower extremity edema present. No calf pain or tenderness noted. Heart hugger in place with patient demonstrating appropriate use. Antiembolism stockings, SCDs present. - Gastrointestinal Gastrointestinal Comment(s): Abdomen soft, nontender, nondistended, obese. Active bowel sounds present 4 quadrants. Tolerating diet. Positive bowel movement. - Genitourinary Genitourinary Comment(s): Patient continues to void 75-150 mL clear yellow urine at a time. - Integumentary Integumentary Comment(s): Skin is warm and dry with evidence of good perfusion. Anterior chest incision well approximated, dry intact dressing. Left lower extremity EVH site well approximated. - Neurologic Neurologic: Present: CNII-XII intact - Musculoskeletal Musculoskeletal: Present: generalized weakness, strength equal bilaterally - Psychiatric Psychiatric: Present: A&O x's 3, appropriate affect, intact judgment & insight - Allied health notes Allied health notes reviewed: nursing - Labs CBC & Chem 7: 01/15/18 05:40 01/15/18 05:40 Labs: Abnormal Lab Results - Last 24 Hours (Table) 01/14/18 01/14/18 01/14/18 Range/Units 12:28 17:31 20:40 RBC (4.30-5.90) m/uL Hgb (13.0-17.5) gm/dL Hct (39.0-53.0) % MCHC (31.0-37.0) g/dL BUN (9-20) mg/dL Glucose (74-99) mg/dL POC Glucose (mg/dL) 233 H 161 H 158 H (75-99) mg/dL Calcium (8.4-10.2) mg/dL Troponin I (0.000-0.034) ng/mL Total Protein (6.3-8.2) g/dL Albumin (3.5-5.0) g/dL 01/15/18 01/15/18 01/15/18 Range/Units 05:40 05:40 05:40 RBC 3.03 L (4.30-5.90) m/uL Hgb 8.6 L (13.0-17.5) gm/dL Hct 28.0 L (39.0-53.0) % MCHC 30.9 L (31.0-37.0) g/dL BUN 32 H (9-20) mg/dL Glucose 72 L (74-99) mg/dL POC Glucose (mg/dL) (75-99) mg/dL Calcium 8.0 L (8.4-10.2) mg/dL Troponin I 1.230 H* (0.000-0.034) ng/mL Total Protein 5.1 L (6.3-8.2) g/dL Albumin 2.8 L (3.5-5.0) g/dL - Imaging and Cardiology Chest x-ray: report reviewed, image reviewed Assessment and Plan (1) Coronary artery disease Current Visit: Yes Status: Chronic Code(s): I25.10 - ATHSCL HEART DISEASE OF [place] CORONARY ARTERY W/O ANG PCTRS SNOMED Code(s): 83563559 (2) History of heart artery stent Current Visit: Yes Status: Chronic Code(s): Z95.5 - PRESENCE OF CORONARY ANGIOPLASTY IMPLANT AND GRAFT SNOMED Code(s): 093074452 (3) Hyperlipidemia Current Visit: Yes Status: Chronic Code(s): E78.5 - HYPERLIPIDEMIA, UNSPECIFIED SNOMED Code(s): 48447253 (4) Hypertension Current Visit: Yes Status: Chronic Code(s): I10 - ESSENTIAL (PRIMARY) HYPERTENSION SNOMED Code(s): 97113801 (5) Insulin dependent diabetes mellitus Current Visit: Yes Status: Chronic Code(s): E11.9 - TYPE 2 DIABETES MELLITUS WITHOUT COMPLICATIONS; Z79.4 - ALF (CURRENT) USE OF INSULIN SNOMED Code(s): 75175796 (6) Obesity Current Visit: Yes Status: Chronic Code(s): E66.9 - OBESITY, UNSPECIFIED SNOMED Code(s): 354707033 (7) Previous myocardial infarction older than 8 weeks Current Visit: No Status: Resolved Code(s): I25.2 - OLD MYOCARDIAL INFARCTION SNOMED Code(s): 1049083 Plan: 1. Continue low dose aspirin, statin, Cozaar, beta jack. Will increase beta jack therapy as tolerated. 2. Continue amiodarone for A. fib prophylaxis. Continue Eliquis for anticoagulation. 3. Will give Lasix 40 mg twice today. 4. Wean O2 as tolerated. Encourage incentive spirometry use 10 times every hour. 5. Bronchodilators per Dr. [place]. 6. Will monitor daily labs and x-rays. 7. GI/DVT prophylaxis. 8. Insulin management per primary care service. 9. Pain management with current medication regimen. 10. Increase activity, ambulate in hallway PT/OT/cardiac rehab following. 11. Dr. Bai consulted for inpatient rehab. Appreciate recommendations. 12. Ejection fraction 35-40% preoperatively, now 30-35%. Patient may need LifeVest at discharge, will defer to cardiology judgment. 13. More recommendations to follow. Time with Patient: Greater than 30
--- NOTE | 2018-01-15 10:16 | PN ---
PROGRESS NOTE Mr. Friedman is a 72-year-old male status post coronary artery bypass grafting who had episode of atrial fibrillation and had an episode of chest discomfort with repeat cardiac catheterization that revealed no evidence of graft occlusion. He is feeling better today. He slept well. He denies symptoms of chest pain. He denies any dizziness. He denies any palpitation. He denies any nausea. He continues to be at this time on amiodarone 400 mg twice a day, Eliquis 5 mg twice a day, aspirin once a day, Lipitor 40 mg daily, Plavix 75 mg daily, Lasix 40 mg IV q.12 hours, losartan 25 mg daily, metoprolol tartrate 12.5 mg twice a day. PHYSICAL EXAMINATION: Blood pressure 106/50 with the heart rate in the 60s. LUNGS: With a few crackles at the bases. HEART: Regular rate and rhythm, S1, S2. No S3. No rub appreciated. ABDOMEN: Soft, nontender. EXTREMITIES: +1 edema. IMPRESSION: 1. Status post coronary artery bypass grafting stable. 2. Paroxysmal atrial fibrillation. 3. Hypertension. 4. Hyperlipidemia. RECOMMENDATION: We will continue present therapy. Continue to increase his level of activity. Hopefully transfer him to telemetry floor. I would recommend stop the Plavix and continue on the aspirin and the Eliquis in view of the increased risk of bleeding. MMODL / IJN: [id number] /
[2018-01-15 12:12] LABS: Glucose,Whole Blood 47 mg/dL (75-99)
[2018-01-15] MEDS: LOSARTAN 25 MG TAB PO SCH (12:19)
[2018-01-15 12:27] LABS: Glucose,Whole Blood 74 mg/dL (75-99)
[2018-01-15 13:38] LABS: Glucose,Whole Blood 107 mg/dL (75-99)
[2018-01-15 16:45] LABS: Glucose,Whole Blood 220 mg/dL (75-99)
[2018-01-15 17:02] LABS: Glucose,Whole Blood 223 mg/dL (75-99)
[2018-01-15 20:27] LABS: Glucose,Whole Blood 228 mg/dL (75-99)
[2018-01-15] MEDS: INSULIN NPH 300 UNIT/3 ML VIAL SQ SCH ×2 (20:46→22:49)
[2018-01-15] MEDS: SENNOSIDES-DOCUSATE SODIUM 1 EACH TAB PO SCH (20:46)
[2018-01-15] MEDS: CITALOPRAM HYDROBROMIDE 20 MG TAB PO SCH (20:46)
--- NOTE | 2018-01-15 23:34 | PN ---
PROGRESS NOTE DATE OF SERVICE: 01/15/2018. ATTENDING PHYSICIAN: Dr. Barr. CHIEF COMPLAINT: Re-evaluation. HISTORY OF PRESENT ILLNESS: This is a 72-year-old who was admitted to the hospital and underwent CABG. The patient is actually doing better. He has a history of atrial fib flutter post surgery, which is resolving. The patient, at present, is in sinus rhythm. The patient is post CABG. He is doing much better. REVIEW OF SYSTEMS: NEURO: Denies any headaches or dizziness. PSYCH: Some depression. CARDIAC: No chest pain, angina or palpitations. The patient was in atrial flutter. RESPIRATORY: Denies shortness of breath. Has some cough. No hemoptysis. GI: No nausea, vomiting, abdominal pain. No bowel movement. Appetite fair. : No symptoms of dysuria or hematuria. EXTREMITIES: No pain. CONSTITUTIONAL: No fevers or chills. PHYSICAL EXAMINATION: Pleasant gentleman, at present in no distress. VITAL SIGNS: Temperature 98.1, pulse 68, respirations 24, blood pressure 158/98, pulse ox 95% on 5 L. HEENT: Normocephalic. NECK: No JVD. CHEST: Examination reveals decreased air flow at the left base. CARDIAC: Distant heart sounds, S1, S2, with no gallop. Systolic murmur 2/6 left sternal border. Regular rhythm. ABDOMEN: Soft. Bowel sounds present. EXTREMITIES: 2+ edema. NEUROLOGIC: Awake, alert, oriented with well-coordinated movements both upper and lower extremities. LABORATORY ASSESSMENT: CBC, hemoglobin 8.6, white count 7.9, platelets 235,000. PTT was 27. Normal electrolytes. BUN 32, creatinine 1.13. Glucose in the morning was 92, at lunch time down to 47. ASSESSMENT: 1. Diabetes mellitus with fluctuating blood sugars. 2. Coronary artery disease, status post coronary artery bypass grafting. 3. Atrial fibrillation/flutter, at present in sinus rhythm. 4. History of depression. 5. Obesity. PLAN: The patient at present is stable. Continue present medical regimen. Patient's condition is discussed with the patient. Prognosis is guarded. He is awaiting transfer to telemetry. MMODL / IJN: [id number] /
[2018-01-16 01:57] LABS: Glucose,Whole Blood 108 mg/dL (75-99)
[2018-01-16 05:14] LABS: HCT 29.3 % (39.0-53.0); HGB 9.4 gm/dL (13.0-17.5); Hypochromasia Slight; MCH 29.4 pg (25.0-35.0); MCHC 31.9 g/dL (31.0-37.0); MCV 92.2 fL (80.0-100.0); Mean Platelet Volume 8.2; Platelet Count 265 k/uL (150-450); RBC 3.18 m/uL (4.30-5.90); RDW 12.9 % (11.5-15.5); WBC 8.8 k/uL (3.8-10.6)
[2018-01-16 05:24] LABS: Calcium 8.3 mg/dL (8.4-10.2); Magnesium 2.4 mg/dL (1.6-2.3); Potassium 4.4 mmol/L (3.5-5.1); Total Protein 5.2 g/dL (6.3-8.2)
[2018-01-16] MEDS: INSULIN ASPART 100 UNIT/ML 1 ML 10 ML VIAL SQ SCH ×5 (05:44→21:37)
[2018-01-16] MEDS: METOPROLOL TARTRATE 12.5 MG TAB PO SCH ×2 (06:51→17:28)
[2018-01-16] MEDS: IPRATROPIUM-ALBUTEROL 3 ML NEB INHALATION SCH ×4 (07:12→19:56)
[2018-01-16 07:23] LABS: Glucose,Whole Blood 174 mg/dL (75-99)
[2018-01-16] MEDS: INSULN ASP PRT/INSULIN ASPART 100 UNIT/ML 10 ML VIAL SQ SCH ×2 (07:29→19:49)
[2018-01-16] MEDS ORDERED: INSULIN ASPART 100 UNIT/ML 1 ML 10 ML VIAL SQ SCH (07:30)
--- NOTE | 2018-01-16 08:35 | XR ---
EXAMINATION TYPE: XR chest 1V portable DATE OF EXAM: 01/16/2018 COMPARISON: 01/15/2018 HISTORY: Post cardiac surgery TECHNIQUE: Single frontal view of the chest is obtained. FINDINGS: Bilateral consolidation and pleural effusion. Cardiomegaly noted. Chronic rib deformity se en. Postoperative change. No pneumothorax. IMPRESSION: Stable bilateral consolidation and pleural effusion
--- NOTE | 2018-01-16 08:43 | P.PN ---
Subjective Progress Note Date: 01/16/18 Principal diagnosis: Multivessel coronary artery disease, status post three-vessel CABG, postop day 1 Mr. Friedman is a 72-year-old white male patient of Dr. Barr with past medical history of coronary artery disease with previous myocardial infarction and stenting, insulin-dependent diabetes mellitus, hypertension, hyperlipidemia, chronic congestive heart failure with systolic dysfunction, history of CVA/TIA, lifetime nonsmoker, who we are seeing in consultation today for pulmonary/ critical care management, in the intensive care unit, post 3 vessel coronary artery bypass grafting, RODRIGUES to LAD, SVG to the PDA, and circumflex, and left atrial appendage exclusion with Atriclip, and intraoperative CAYLA. Patient was having symptoms of atypical angina, on the right side of his chest, radiating down his right arm, he underwent heart catheterization on 12/06/2017 which demonstrated left main coronary artery with moderate 20% diffuse disease, total occlusion of the left anterior descending coronary artery with in-stent stenosis , circumflex artery with 70-80% narrowing and mid RCA with 60% stenosis. LV gram showed an ejection fraction of 35-40%, with hypokinesia of the anteroapical wall. 2-D echocardiogram showed moderately impaired systolic function with an ejection fraction of 35-40%. Patient was recommended for surgical revascularization. Preop bedside spirometry revealed FEV1 of 2.0 L, or 62% of predicted, FVC of 2.5 L or 57% of predicted, and patient has a moderate amount of restriction. Patient is currently sedated on mechanical ventilation, initial vent settings were SIMV with a rate of 12, tidal 5 of 550, FiO2 100%, and PEEP of 8. Blood gas showed a O2 of 71, pCO2 57, pH of 7.29 on the above mentioned settings, and settings were changed to assist control mode with a rate of 20, tidal volume of 500, FiO2 100% and PEEP of 10, repeat blood gases showed pO2 of 60, pCO2 56, and pH of 7.29, subsequently was a rate increased to 24, and PEEP increased to 13. Maintenance IV is LR at a rate of 50 , nitroglycerin drip at 5 mics per minute, Primacor at 0.3 mcg/kg/min, and insulin drip at 5 u/hr. Cardiac index and output is 9.0/3.9 respectively, patient's intrinsic rhythm is sinus bradycardia with a rate of 65, he is being paced via epicardial AV wires, at the mode of DDD, with a rate of 70. Blood pressure is 121/51, PA pressures is 37/21. He has a mediastinal and left pleural chest tube, and there has been small serosanguineous amount of output in the chest tube collection chamber. Postop hemoglobin is 10.8, WBC is 11.9, platelet count is 144, INR is 1.3, electrolytes and renal profile are within normal limits. Patient is hemodynamically stable, nonoliguric. On 01/10/2018 patient seen again in follow-up in the intensive care unit. Sedated on mechanical ventilation, with vent settings are assist-control mode with a rate of 24, tidal vitamin 500, FiO2 of 65, and PEEP of 5, morning blood gases showed pO2 of 63, pCO2 40, and pH of 7.41. Today's chest x-ray has been reviewed by Dr. Arreola, and showed bilateral consolidation and pleural effusions. Patient was given a sedation holiday, he is following all commands, he was given a spontaneous breathing trial, with pressure support of 5, and CPAP of 5, with FiO2 of 65%, and weaning parameters were completed, and showed tidal vitamin of 380, vital Of 1.2, minute ventilation of 7.9 L, respiratory rate of 22, NIF is -24, RSBI is 52, and these are satisfactory blood gases. Cardiothoracic surgery has ordered a dose of IV Lasix 40 mg. Maintenance IV fluids is LR at a rate of 50 ML per hour, Clevidipine at 10 mg per hour, propofol is currently off, insulin is at 5.5 units per hour, and nitroglycerin is at 5 mcg/min. PA pressures 39/16, CVP is 11, cardiac output and index are 7.1 and 3.1 respectively. Patient was successfully extubated at 0845 to 10 L per high flow nasal cannula, the patient is able to achieve 1000 mL on the incentive spirometry. Patient's current rhythm is sinus rhythm with a rate of 62 BPM, and his current pacemaker settings are backup rate of AAI at a rate of 40 BPM. Midsternal incision is clean dry and intact, stable, mediastinal and left pleural chest tubes are intact, they are connected via Y-connection, and 24 -hour output is 329 mL of serosanguineous drainage. Today's labs were reviewed , WBC is 13.3, hemoglobin is 11.7, INR is 1.1, electrolytes are within normal limits, BUN is 22, creatinine is 1.2. Patient is producing urine it is ranging from 40-75 ML per hour. On 01/16/2018 patient is seen again in follow-up in the intensive care unit. He is a selective overflow, he denies any acute complaints, denies any worsening dyspnea, currently on liters per nasal cannula, and his pulse ox is at 94%, patient remains in sinus rhythm and the rate of 67 BPM, afebrile. Today 's chest x-ray has been reviewed, and show stable bilateral consolidation and pleural effusion. His labs have been reviewed, WBC is 8.8, hemoglobin is 9.4, CO2 31, BUN is 29, creatinine is 1.1. Patient is on anticoagulation form of Eliquis, he is on oral amiodarone, he is being diuresed, remains on IV Lasix at 40 mg twice daily, he is in -1790 mL fluid balance over the last 24 hours. Still has some pedal edema, but that seems to be improving. Lung sounds are positive for diminished breath sounds at the bases, with a few scattered rales. Tolerating ambulation. He had a bowel movement this morning Objective - Vital Signs Vital signs: Vital Signs Temp 98.3 F 01/15/18 16:00 Pulse 78 01/16/18 07:25 Resp 37 H 01/16/18 07:00 BP 144/53 01/16/18 07:00 Pulse Ox 93 L 01/16/18 07:00 Intake & Output 01/15/18 01/16/18 01/16/18 18:59 06:59 18:59 Intake Total 1210 0 Output Total 2150 850 150 Balance -940 -850 -150 Weight 120.9 kg Intake: IV 60 0 .9 60 0 Oral 1150 Output: Urine 2150 850 150 Other: Voiding Method Urinal Urinal # Voids 1 # Bowel Movements 1 ABP, PAP, CO, CI - Last Documented Arterial Blood Pressure 94/40 Pulmonary Artery Pressure 39/15 Cardiac Output 7.1 Cardiac Index 2.5 - Exam - Constitutional General appearance: no acute distress, obese. Awake, alert, currently on 6 L per high flow nasal cannula. - EENT Eyes: PERRLA, dentition normal ENT: NA/AT, normal oropharynx - Neck Neck: no lymphadenopathy Carotids: bilateral: upstroke normal Thyroid: bilateral: normal size - Respiratory Respiratory: bilateral: CTA - Cardiovascular Midsternal incision is clean dry and intact, stable, covered with surgical dressing, mediastinal and left pleural chest tube insertion sites are clean dry and intact Rhythm: regular Heart sounds: normal: S1, S2 ankle Peripheral Edema: absent: None foot Peripheral Edema: absent: None leg Peripheral Edema: absent: None - Gastrointestinal General gastrointestinal: no organomegaly, soft, no tenderness - Integumentary Midsternal incision is clean dry and intact, stable, covered with surgical dressing, mediastinal and left pleural chest tube insertion sites are clean dry and intact, bilateral lower extremities with ESTELA hose and SCDs, left lower leg incisions clean dry and intact Integumentary: normal turgor - Neurologic Awake and alert, no focal neurological deficits, responding appropriately. - Labs CBC & Chem 7: 01/16/18 04:45 01/16/18 04:45 Labs: Abnormal Lab Results - Last 24 Hours (Table) 01/15/18 01/15/18 01/15/18 Range/Units 12:11 12:25 13:37 RBC (4.30-5.90) m/uL Hgb (13.0-17.5) gm/dL Hct (39.0-53.0) % Carbon Dioxide (22-30) mmol/L BUN (9-20) mg/dL Glucose (74-99) mg/dL POC Glucose (mg/dL) 47 L 74 L 107 H (75-99) mg/dL Calcium (8.4-10.2) mg/dL Magnesium (1.6-2.3) mg/dL Total Protein (6.3-8.2) g/dL Albumin (3.5-5.0) g/dL 01/15/18 01/15/18 01/15/18 Range/Units 16:44 17:00 20:26 RBC (4.30-5.90) m/uL Hgb (13.0-17.5) gm/dL Hct (39.0-53.0) % Carbon Dioxide (22-30) mmol/L BUN (9-20) mg/dL Glucose (74-99) mg/dL POC Glucose (mg/dL) 220 H 223 H 228 H (75-99) mg/dL Calcium (8.4-10.2) mg/dL Magnesium (1.6-2.3) mg/dL Total Protein (6.3-8.2) g/dL Albumin (3.5-5.0) g/dL 01/16/18 01/16/18 01/16/18 Range/Units 01:54 04:45 04:45 RBC 3.18 L (4.30-5.90) m/uL Hgb 9.4 L (13.0-17.5) gm/dL Hct 29.3 L (39.0-53.0) % Carbon Dioxide 31 H (22-30) mmol/L BUN 29 H (9-20) mg/dL Glucose 119 H (74-99) mg/dL POC Glucose (mg/dL) 108 H (75-99) mg/dL Calcium 8.3 L (8.4-10.2) mg/dL Magnesium 2.4 H (1.6-2.3) mg/dL Total Protein 5.2 L (6.3-8.2) g/dL Albumin 3.0 L (3.5-5.0) g/dL 01/16/18 Range/Units 07:22 RBC (4.30-5.90) m/uL Hgb (13.0-17.5) gm/dL Hct (39.0-53.0) % Carbon Dioxide (22-30) mmol/L BUN (9-20) mg/dL Glucose (74-99) mg/dL POC Glucose (mg/dL) 174 H (75-99) mg/dL Calcium (8.4-10.2) mg/dL Magnesium (1.6-2.3) mg/dL Total Protein (6.3-8.2) g/dL Albumin (3.5-5.0) g/dL Assessment and Plan Plan: Assessment: #1. Symptomatic multivessel coronary artery disease, status post three-vessel coronary artery bypass grafting, RODRIGUES to LAD, SVG to the PDA and circumflex, with intraoperative CAYLA and exclusion of left atrial appendage with #32 Atriclip , postop day 1 #2. History of coronary artery disease, with 3 previous myocardial infarctions , and previous stenting #3. Lifetime nonsmoker #4. Diabetes mellitus type 2 #5. Hypertension, hyperlipidemia #6. Ischemic cardiomyopathy, with reduced left ventricular systolic function with EF of 35-40% #7. History of CVA/TIA #8. Benign prostatic hypertrophy #9. Anxiety/depression Plan: Patient denies any acute complaints, he is maintaining negative fluid balance, continues on IV diuretics per CT surgery, and his chest x-ray has been reviewed , shows bilateral pleural effusions. He remains on high flow nasal cannula, currently at 6 L. Continue encouraging incentive spirometry use, continue encouraging deep breathing and coughing, ambulation. Patient is awaiting a bed on selective care unit. We'll continue to follow. I performed a history & physical examination of the patient and discussed their management with my nurse practitioner, Jazmin Day. I reviewed the nurse practitioner's note and agree with the documented findings and plan of care. Lung sounds are clear. The findings and the impression was discussed with the patient. I attest to the documentation by the nurse practitioner. Time with Patient: Less than 30
--- NOTE | 2018-01-16 09:02 | PN ---
PROGRESS NOTE Mr. Friedman is a 72-year-old male with history of coronary artery disease, status post coronary artery bypass grafting. He is feeling better today. Continues to be fatigued although not significant change in his breathing. No chest pain. He is back in atrial flutter with controlled AV conduction. He has no dizziness. No palpitation. He has some chest wall tenderness. He continues to be on amiodarone 400 mg twice a day, Eliquis 5 mg twice a day, aspirin once a day, Lipitor 40 mg daily, furosemide 40 mg IV q.12 hours and metoprolol tartrate 12.5 mg twice a day. PHYSICAL EXAMINATION: Blood pressure 147/60 with the heart rate in the 60s. LUNGS: With decreased breath sounds at the bases. HEART: Irregular, irregular. S1, S2. No S3. No rub. ABDOMEN: Soft, obese, nontender. EXTREMITIES: Trace edema. LAB DATA: BUN and creatinine 29 and 1.1. Potassium 4.4. Hemoglobin of 9.4. IMPRESSION: 1. Status post coronary artery bypass grafting. 2. Atrial flutter, persistent, anticoagulated. 3. Hypertension. 4. Hyperlipidemia. RECOMMENDATION: We will continue present therapy, increase level of activity, follow his rhythm and to make further recommendation regarding management. MMODL / IJN: [id number] /
[2018-01-16] MEDS: APIXABAN 5 MG TAB PO SCH ×2 (09:22→21:35)
[2018-01-16] MEDS: PANTOPRAZOLE 40 MG TABLET PO SCH (09:24)
[2018-01-16] MEDS: AMIODARONE 200 MG TAB PO SCH ×2 (09:24→21:35)
[2018-01-16] MEDS: ASPIRIN 81 MG PO SCH (09:26)
[2018-01-16] MEDS: LOSARTAN 25 MG TAB PO SCH (09:27)
[2018-01-16] MEDS: ATORVASTATIN 40 MG TAB PO SCH (09:27)
[2018-01-16] MEDS: FUROSEMIDE 10 MG/ML 2 ML VIAL IV SCH ×2 (09:28→17:27)
[2018-01-16] MEDS: TAMSULOSIN 0.4 MG CAP.ER.24H PO SCH ×2 (09:29→21:35)
--- NOTE | 2018-01-16 10:52 | P.PN ---
Subjective Progress Note Date: 01/16/18 Principal diagnosis: Unstable angina. Triple vessel coronary artery disease. Previous myocardial infarction with stent placement, insulin-dependent diabetes mellitus with preoperative hemoglobin A1c 6.8%, hypertension, hyperlipidemia, mild COPD with preoperative FEV1 62% of predicted, history of depression, and chronic systolic heart failure with ejection fraction 35-40%, obesity. POD #7 coronary bypass grafting 3 with left internal mammary to the left anterior descending artery, reverse saphenous vein graft off the aorta to the circumflex artery and the posterior descending artery with left greater saphenous vein endoscopic vein harvesting. Clip ligation of the left atrial appendage with a #35 mm AtriClip. Intraoperative transesophageal echocardiogram. Postoperative atrial fibrillation, an unexpected but potential outcome of surgery. Patient is currently sitting up in a recliner in no acute distress. States pain is controlled on current medication regimen. Back into atrial fibrillation of this morning with controlled rate. Patient states he is feeling much better and is ready to get out of the ICU today. Objective - Vital Signs Vital signs: Vital Signs Temp 98.3 F 01/15/18 16:00 Pulse 65 01/16/18 09:00 Resp 26 H 01/16/18 09:00 BP 101/53 01/16/18 09:00 Pulse Ox 95 01/16/18 09:00 Intake & Output 01/15/18 01/16/18 01/16/18 18:59 06:59 18:59 Intake Total 1210 0 Output Total 2150 850 150 Balance -940 -850 -150 Weight 120.9 kg Intake: IV 60 0 .9 60 0 Oral 1150 Output: Urine 2150 850 150 Other: Voiding Method Urinal Urinal # Voids 1 # Bowel Movements 1 ABP, PAP, CO, CI - Last Documented Arterial Blood Pressure 94/40 Pulmonary Artery Pressure 39/15 Cardiac Output 7.1 Cardiac Index 2.5 - Constitutional General appearance: Present: cooperative, no acute distress, obese - Respiratory Details: Lungs sounds diminished bilaterally. Respirations even, nonlabored. Able to achieve 1250 mL on his incentive spirometry. Currently on 7 L high flow nasal cannula with oxygen saturation 93%. Weak cough. - Cardiovascular Details: S1, S2 present. Irregular rate and rhythm, controlled a fibrillation on telemetry. Sternum stable. Palpable peripheral pulses bilaterally. Left upper thigh edema present. No calf pain or tenderness noted. Heart hugger in place with patient demonstrating appropriate use. Antiembolism stockings, SCDs present. - Gastrointestinal Gastrointestinal Comment(s): Abdomen soft, nontender, nondistended, obese. Active bowel sounds present 4 quadrants. Tolerating diet. Positive bowel movement. - Genitourinary Genitourinary Comment(s): Patient continues to void clear yellow urine. Excellent diuresis with Lasix. - Integumentary Integumentary Comment(s): Skin is warm and dry with evidence of good perfusion. Anterior chest incision well approximated, dry intact dressing. Left lower extremity EVH site well approximated. - Neurologic Neurologic: Present: CNII-XII intact - Musculoskeletal Musculoskeletal: Present: gait normal, generalized weakness, strength equal bilaterally - Psychiatric Psychiatric: Present: A&O x's 3, appropriate affect, intact judgment & insight - Allied health notes Allied health notes reviewed: nursing - Labs CBC & Chem 7: 01/16/18 04:45 01/16/18 04:45 Labs: Abnormal Lab Results - Last 24 Hours (Table) 01/15/18 01/15/18 01/15/18 Range/Units 12:11 12:25 13:37 RBC (4.30-5.90) m/uL Hgb (13.0-17.5) gm/dL Hct (39.0-53.0) % Carbon Dioxide (22-30) mmol/L BUN (9-20) mg/dL Glucose (74-99) mg/dL POC Glucose (mg/dL) 47 L 74 L 107 H (75-99) mg/dL Calcium (8.4-10.2) mg/dL Magnesium (1.6-2.3) mg/dL Total Protein (6.3-8.2) g/dL Albumin (3.5-5.0) g/dL 01/15/18 01/15/18 01/15/18 Range/Units 16:44 17:00 20:26 RBC (4.30-5.90) m/uL Hgb (13.0-17.5) gm/dL Hct (39.0-53.0) % Carbon Dioxide (22-30) mmol/L BUN (9-20) mg/dL Glucose (74-99) mg/dL POC Glucose (mg/dL) 220 H 223 H 228 H (75-99) mg/dL Calcium (8.4-10.2) mg/dL Magnesium (1.6-2.3) mg/dL Total Protein (6.3-8.2) g/dL Albumin (3.5-5.0) g/dL 01/16/18 01/16/18 01/16/18 Range/Units 01:54 04:45 04:45 RBC 3.18 L (4.30-5.90) m/uL Hgb 9.4 L (13.0-17.5) gm/dL Hct 29.3 L (39.0-53.0) % Carbon Dioxide 31 H (22-30) mmol/L BUN 29 H (9-20) mg/dL Glucose 119 H (74-99) mg/dL POC Glucose (mg/dL) 108 H (75-99) mg/dL Calcium 8.3 L (8.4-10.2) mg/dL Magnesium 2.4 H (1.6-2.3) mg/dL Total Protein 5.2 L (6.3-8.2) g/dL Albumin 3.0 L (3.5-5.0) g/dL 01/16/18 Range/Units 07:22 RBC (4.30-5.90) m/uL Hgb (13.0-17.5) gm/dL Hct (39.0-53.0) % Carbon Dioxide (22-30) mmol/L BUN (9-20) mg/dL Glucose (74-99) mg/dL POC Glucose (mg/dL) 174 H (75-99) mg/dL Calcium (8.4-10.2) mg/dL Magnesium (1.6-2.3) mg/dL Total Protein (6.3-8.2) g/dL Albumin (3.5-5.0) g/dL - Imaging and Cardiology Chest x-ray: report reviewed, image reviewed Assessment and Plan (1) Coronary artery disease Current Visit: Yes Status: Chronic Code(s): I25.10 - ATHSCL HEART DISEASE OF [place] CORONARY ARTERY W/O ANG PCTRS SNOMED Code(s): 85301759 (2) History of heart artery stent Current Visit: Yes Status: Chronic Code(s): Z95.5 - PRESENCE OF CORONARY ANGIOPLASTY IMPLANT AND GRAFT SNOMED Code(s): 548121583 (3) Hyperlipidemia Current Visit: Yes Status: Chronic Code(s): E78.5 - HYPERLIPIDEMIA, UNSPECIFIED SNOMED Code(s): 29015722 (4) Hypertension Current Visit: Yes Status: Chronic Code(s): I10 - ESSENTIAL (PRIMARY) HYPERTENSION SNOMED Code(s): 76540938 (5) Insulin dependent diabetes mellitus Current Visit: Yes Status: Chronic Code(s): E11.9 - TYPE 2 DIABETES MELLITUS WITHOUT COMPLICATIONS; Z79.4 - [employer]PER[employer]OR (CURRENT) USE OF INSULIN SNOMED Code(s): 67199198 (6) Obesity Current Visit: Yes Status: Chronic Code(s): E66.9 - OBESITY, UNSPECIFIED SNOMED Code(s): 253267539 (7) Previous myocardial infarction older than 8 weeks Current Visit: No Status: Resolved Code(s): I25.2 - OLD MYOCARDIAL INFARCTION SNOMED Code(s): 6723710 Plan: 1. Continue low dose aspirin, statin, Cozaar, beta jack. Will increase beta jack therapy as tolerated, patient's heart rate has been mostly in the low 60s. 2. Continue amiodarone for A. fib prophylaxis. Continue Eliquis for anticoagulation. 3. Will give Lasix 40 mg twice daily. 4. Wean O2 as tolerated. Encourage incentive spirometry use 10 times every hour. 5. Bronchodilators per Dr. [place]., 6. Will monitor daily labs and x-rays. 7. GI/DVT prophylaxis. 8. Insulin management per primary care service. 9. Pain management with current medication regimen. 10. Increase activity, ambulate in hallway PT/OT/cardiac rehab following. 11. Dr. Bai consulted for inpatient rehab. Appreciate recommendations. 12. Ejection fraction 35-40% preoperatively, now 30-35%. Discussed with Dr. Vines, no need for life vest. 13. Transfer orders placed for patient to go to 6 E. selective care when bed available. 14. Anticipate discharge to inpatient rehab versus subacute rehab by the end of the week. Time with Patient: Greater than 30
[2018-01-16 12:12] LABS: Glucose,Whole Blood 64 mg/dL (75-99)
[2018-01-16 12:35] LABS: Glucose,Whole Blood 96 mg/dL (75-99)
[2018-01-16 13:57] VITALS: BMI 38.2
[2018-01-16 16:26] LABS: Glucose,Whole Blood 285 mg/dL (75-99)
[2018-01-16 21:02] LABS: Glucose,Whole Blood 347 mg/dL (75-99)
[2018-01-16] MEDS: CITALOPRAM HYDROBROMIDE 20 MG TAB PO SCH (21:34)
[2018-01-16] MEDS: HYDROcodone/APAP 5-325MG 1 EACH TAB PO PRN (21:35)
[2018-01-16] MEDS: SENNOSIDES-DOCUSATE SODIUM 1 EACH TAB PO SCH (21:36)
[2018-01-16] MEDS: INSULIN NPH 300 UNIT/3 ML VIAL SQ SCH (21:36)
[2018-01-17 01:59] LABS: Glucose,Whole Blood 239 mg/dL (75-99)
[2018-01-17] MEDS: INSULIN ASPART 100 UNIT/ML 1 ML 10 ML VIAL SQ SCH ×5 (02:06→21:03)
--- NOTE | 2018-01-17 04:17 | PN ---
PROGRESS NOTE CHIEF COMPLAINT: Re-evaluation. HISTORY OF PRESENT ILLNESS: This is a 72-year-old who was admitted to the hospital and undergone CABG. The patient postoperatively was doing well, except he developed atrial fibrillation and now subsequently atrial flutter intermittently. The patient is on amiodarone. No symptoms from this repair. He also had developed some chest pain with minimal ST changes and underwent a repeat cardiac cath, which revealed no evidence of any sudden occlusion of the graft. The patient is actually doing fairly well today. REVIEW OF SYSTEMS: NEURO: Denies any headaches, dizziness. PSYCH: Some anxiety, depression. CARDIAC: No chest pain, angina, or palpitations. RESPIRATORY: Denies shortness of breath, cough. GI: No nausea, vomiting, abdominal pain, diarrhea. : No dysuria, hematuria, urgency, frequency. EXTREMITIES: No pain, edema. CONSTITUTIONAL: No fever or chills. PHYSICAL EXAMINATION: Pleasant gentleman present in no distress. Vital signs revealed blood pressure 129/54, pulse ox 95%, respirations 24, pulse of 69, intermittent atrial flutter. HEENT: Normocephalic. NECK: No JVD. CHEST: Examination is clear to auscultation except for decreased air flow at the left base. CARDIAC: Distant heart sounds S1, S2 with no gallop. Systolic murmur 2/6 left sternal border, irregular rhythm intermittently. ABDOMEN: Soft. Bowel sounds present. EXTREMITIES: 2 to 3+ edema. NEUROLOGICALLY: Awake, alert, oriented with well-coordinated movements. LABORATORY ASSESSMENT: Hemoglobin 9.4, platelets of 265, white count 8.8. Electrolytes are normal. BUN 29, creatinine 1.10. Chest x-ray basilar atelectasis, fluid at left base and cardiomegaly. EKG atrial flutter. ASSESSMENT: 1. Diabetes mellitus with blood sugar of 119 this morning, 108 at 1 a.m. and 228 at bedtime. 2. Coronary artery disease, status post coronary artery bypass grafting. 3. Acute kidney injury, resolved. 4. Anemia secondary to acute blood loss. PLAN: Continue present medical regimen. Patient's condition discussed with the patient. Prognosis guarded. MMODL / IJN: [id number] /
[2018-01-17 05:45] LABS: Glucose,Whole Blood 128 mg/dL (75-99)
[2018-01-17 06:38] LABS: Basophils % (A) 0 %; Eosinophils # (A) 0.1 k/uL (0-0.7); Eosinophils % (A) 1 %; HCT 30.4 % (39.0-53.0); HGB 9.5 gm/dL (13.0-17.5); Hypochromasia Slight; Lymphocytes # (A) 0.6 k/uL (1.0-4.8); Lymphocytes % (A) 5 %; MCH 28.5 pg (25.0-35.0); MCHC 31.2 g/dL (31.0-37.0); MCV 91.4 fL (80.0-100.0); Mean Platelet Volume 8.2; Monocytes # (A) 0.8 k/uL (0-1.0); Monocytes % (A) 6 %; Neutrophils # (A) 11.2 k/uL (1.3-7.7); Neutrophils % (A) 87 %; Platelet Count 351 k/uL (150-450); RBC 3.32 m/uL (4.30-5.90); WBC 12.9 k/uL (3.8-10.6)
[2018-01-17] MEDS: PANTOPRAZOLE 40 MG TABLET PO SCH (06:43)
[2018-01-17] MEDS: METOPROLOL TARTRATE 12.5 MG TAB PO SCH ×2 (06:43→18:11)
[2018-01-17] MEDS: HYDROcodone/APAP 5-325MG 1 EACH TAB PO PRN ×3 (06:44→23:22)
[2018-01-17 07:03] LABS: Albumin 3.1 g/dL (3.5-5.0); Calcium 8.7 mg/dL (8.4-10.2); Magnesium 2.5 mg/dL (1.6-2.3); Potassium 4.6 mmol/L (3.5-5.1); Total Protein 5.4 g/dL (6.3-8.2)
[2018-01-17] MEDS: TAMSULOSIN 0.4 MG CAP.ER.24H PO SCH ×2 (08:01→21:02)
[2018-01-17] MEDS: ATORVASTATIN 40 MG TAB PO SCH (08:01)
[2018-01-17] MEDS: AMIODARONE 200 MG TAB PO SCH ×2 (08:01→21:02)
[2018-01-17] MEDS: ASPIRIN 81 MG PO SCH (08:01)
[2018-01-17] MEDS: APIXABAN 5 MG TAB PO SCH ×2 (08:01→21:02)
[2018-01-17] MEDS: LOSARTAN 25 MG TAB PO SCH (08:01)
[2018-01-17] MEDS: FUROSEMIDE 10 MG/ML 2 ML VIAL IV SCH ×2 (08:01→15:12)
--- NOTE | 2018-01-17 08:01 | XR ---
EXAMINATION TYPE: XR chest 2V DATE OF EXAM: 01/17/2018 COMPARISON: 01/16/2018 TECHNIQUE: PA and lateral views submitted. HISTORY: Post cardiac surgery FINDINGS: Bilateral consolidation and pleural effusion. Cardiomegaly noted. Chronic rib deformity seen. Postope rative change. No pneumothorax. IMPRESSION: 1.Stable bilateral consolidation and pleural effusion
[2018-01-17] MEDS: IPRATROPIUM-ALBUTEROL 3 ML NEB INHALATION SCH ×4 (08:27→19:51)
[2018-01-17] MEDS: INSULN ASP PRT/INSULIN ASPART 100 UNIT/ML 10 ML VIAL SQ SCH (08:45)
--- NOTE | 2018-01-17 10:44 | P.PN ---
Subjective Progress Note Date: 01/17/18 Principal diagnosis: Unstable angina. Triple vessel coronary artery disease. Previous myocardial infarction with stent placement, insulin-dependent diabetes mellitus with preoperative hemoglobin A1c 6.8%, hypertension, hyperlipidemia, mild COPD with preoperative FEV1 62% of predicted, history of depression, and chronic systolic heart failure with ejection fraction 35-40%, obesity. POD #8 coronary bypass grafting 3 with left internal mammary to the left anterior descending artery, reverse saphenous vein graft off the aorta to the circumflex artery and the posterior descending artery with left greater saphenous vein endoscopic vein harvesting. Clip ligation of the left atrial appendage with a #35 mm AtriClip. Intraoperative transesophageal echocardiogram. Postoperative atrial fibrillation, an unexpected but potential outcome of surgery. Patient is currently sitting up in a recliner in no acute distress. States pain is controlled on current medication regimen. Continues to be in atrial fibrillation of this morning with controlled rate. Patient was transferred out of ICU to [address] [place] [address] yesterday. Had some issues last night with constipation which has since resolved. Objective - Vital Signs Vital signs: Vital Signs Temp 96.0 F L 01/17/18 08:00 Pulse 66 01/17/18 09:30 Resp 16 01/17/18 08:40 BP 116/56 01/17/18 09:30 Pulse Ox 93 L 01/17/18 09:30 Intake & Output 01/16/18 01/17/18 01/17/18 18:59 06:59 18:59 Intake Total 1020 10 Output Total 910 Balance 110 10 Weight 120.9 kg 116 kg Intake: IV 10 Invasive Line 7 10 Oral 1020 Output: Urine 910 Other: Voiding Method Urinal Urinal # Voids 1 # Bowel Movements 1 ABP, PAP, CO, CI - Last Documented Arterial Blood Pressure 94/40 Pulmonary Artery Pressure 39/15 Cardiac Output 7.1 Cardiac Index 2.5 - Constitutional General appearance: Present: cooperative, no acute distress, obese - Respiratory Details: Lungs sounds diminished bilaterally. Respirations even, nonlabored. Able to achieve 0658-9880 mL on his incentive spirometry. Currently on 5 L high flow nasal cannula with oxygen saturation 93%. Weak cough. - Cardiovascular Details: S1, S2 present. Irregular rate and rhythm, atrial fibrillation on telemetry. Sternum stable. Palpable peripheral pulses bilaterally. Trace bilateral lower extremity edema present, left greater than right. No calf pain or tenderness noted. Heart hugger in place with patient demonstrating appropriate use. Antiembolism stockings, SCDs present. - Gastrointestinal Gastrointestinal Comment(s): Abdomen soft, nontender, nondistended, obese. Active bowel sounds present 4 quadrants. Tolerating diet. Positive bowel movement. - Genitourinary Genitourinary Comment(s): Patient continues to void clear, yellow urine. - Integumentary Integumentary Comment(s): Skin is warm and dry with evidence of good perfusion. Anterior chest incision well approximated, dry intact dressing. Left lower extremity EVH site well approximated. - Neurologic Neurologic: Present: CNII-XII intact - Musculoskeletal Musculoskeletal: Present: gait normal, generalized weakness, strength equal bilaterally - Psychiatric Psychiatric: Present: A&O x's 3, appropriate affect, intact judgment & insight - Allied health notes Allied health notes reviewed: nursing - Labs CBC & Chem 7: 01/17/18 06:00 01/17/18 06:00 Labs: Abnormal Lab Results - Last 24 Hours (Table) 01/16/18 01/16/18 01/16/18 Range/Units 12:09 16:15 21:00 WBC (3.8-10.6) k/uL RBC (4.30-5.90) m/uL Hgb (13.0-17.5) gm/dL Hct (39.0-53.0) % Neutrophils # (1.3-7.7) k/uL Lymphocytes # (1.0-4.8) k/uL Carbon Dioxide (22-30) mmol/L BUN (9-20) mg/dL Glucose (74-99) mg/dL POC Glucose (mg/dL) 64 L 285 H 347 H (75-99) mg/dL Magnesium (1.6-2.3) mg/dL Total Protein (6.3-8.2) g/dL Albumin (3.5-5.0) g/dL 01/17/18 01/17/18 01/17/18 Range/Units 01:56 05:43 06:00 WBC (3.8-10.6) k/uL RBC (4.30-5.90) m/uL Hgb (13.0-17.5) gm/dL Hct (39.0-53.0) % Neutrophils # (1.3-7.7) k/uL Lymphocytes # (1.0-4.8) k/uL Carbon Dioxide 31 H (22-30) mmol/L BUN 32 H (9-20) mg/dL Glucose 118 H (74-99) mg/dL POC Glucose (mg/dL) 239 H 128 H (75-99) mg/dL Magnesium 2.5 H (1.6-2.3) mg/dL Total Protein 5.4 L (6.3-8.2) g/dL Albumin 3.1 L (3.5-5.0) g/dL 01/17/18 Range/Units 06:00 WBC 12.9 H (3.8-10.6) k/uL RBC 3.32 L (4.30-5.90) m/uL Hgb 9.5 L (13.0-17.5) gm/dL Hct 30.4 L (39.0-53.0) % Neutrophils # 11.2 H (1.3-7.7) k/uL Lymphocytes # 0.6 L (1.0-4.8) k/uL Carbon Dioxide (22-30) mmol/L BUN (9-20) mg/dL Glucose (74-99) mg/dL POC Glucose (mg/dL) (75-99) mg/dL Magnesium (1.6-2.3) mg/dL Total Protein (6.3-8.2) g/dL Albumin (3.5-5.0) g/dL - Imaging and Cardiology Chest x-ray: report reviewed, image reviewed Assessment and Plan (1) Coronary artery disease Current Visit: Yes Status: Chronic Code(s): I25.10 - ATHSCL HEART DISEASE OF [place] CORONARY ARTERY W/O ANG PCTRS SNOMED Code(s): 53559532 (2) History of heart artery stent Current Visit: Yes Status: Chronic Code(s): Z95.5 - PRESENCE OF CORONARY ANGIOPLASTY IMPLANT AND GRAFT SNOMED Code(s): 972447187 (3) Hyperlipidemia Current Visit: Yes Status: Chronic Code(s): E78.5 - HYPERLIPIDEMIA, UNSPECIFIED SNOMED Code(s): 35627353 (4) Hypertension Current Visit: Yes Status: Chronic Code(s): I10 - ESSENTIAL (PRIMARY) HYPERTENSION SNOMED Code(s): 80052675 (5) Insulin dependent diabetes mellitus Current Visit: Yes Status: Chronic Code(s): E11.9 - TYPE 2 DIABETES MELLITUS WITHOUT COMPLICATIONS; Z79.4 - CRTS (CURRENT) USE OF INSULIN SNOMED Code(s): 20530112 (6) Obesity Current Visit: Yes Status: Chronic Code(s): E66.9 - OBESITY, UNSPECIFIED SNOMED Code(s): 829019750 (7) Previous myocardial infarction older than 8 weeks Current Visit: No Status: Resolved Code(s): I25.2 - OLD MYOCARDIAL INFARCTION SNOMED Code(s): 7151940 Plan: 1. Continue low dose aspirin, statin, Cozaar, beta jack. Will increase beta jack therapy as tolerated, patient's heart rate has been mostly in the low 60s. 2. Continue amiodarone for A. fib prophylaxis, decrease to 200 mg twice daily tomorrow. Continue Eliquis for anticoagulation. 3. Will give Lasix 40 mg twice daily. 4. Wean O2 as tolerated. Encourage incentive spirometry use 10 times every hour. 5. Bronchodilators per Dr. [place]. 6. Will monitor daily labs and x-rays. 7. GI/DVT prophylaxis. 8. Insulin management per primary care service. 9. Pain management with current medication regimen. 10. Increase activity, ambulate in hallway PT/OT/cardiac rehab following. 11. Ejection fraction 35-40% preoperatively, now 30-35%. Discussed with Dr. Vines, no need for life vest. 12. Discharge planning in progress. Anticipate discharge to inpatient rehab by the end of the week. Time with Patient: Greater than 30
[2018-01-17 11:07] LABS: Glucose,Whole Blood 183 mg/dL (75-99)
--- NOTE | 2018-01-17 14:19 | P.PN ---
Subjective Progress Note Date: 01/17/18 Principal diagnosis: Multivessel coronary artery disease, status post three-vessel CABG, postop day 1 Mr. Friedman is a 72-year-old white male patient of Dr. Barr with past medical history of coronary artery disease with previous myocardial infarction and stenting, insulin-dependent diabetes mellitus, hypertension, hyperlipidemia, chronic congestive heart failure with systolic dysfunction, history of CVA/TIA, lifetime nonsmoker, who we are seeing in consultation today for pulmonary/ critical care management, in the intensive care unit, post 3 vessel coronary artery bypass grafting, RODRIGUES to LAD, SVG to the PDA, and circumflex, and left atrial appendage exclusion with Atriclip, and intraoperative CAYLA. Patient was having symptoms of atypical angina, on the right side of his chest, radiating down his right arm, he underwent heart catheterization on 12/06/2017 which demonstrated left main coronary artery with moderate 20% diffuse disease, total occlusion of the left anterior descending coronary artery with in-stent stenosis , circumflex artery with 70-80% narrowing and mid RCA with 60% stenosis. LV gram showed an ejection fraction of 35-40%, with hypokinesia of the anteroapical wall. 2-D echocardiogram showed moderately impaired systolic function with an ejection fraction of 35-40%. Patient was recommended for surgical revascularization. Preop bedside spirometry revealed FEV1 of 2.0 L, or 62% of predicted, FVC of 2.5 L or 57% of predicted, and patient has a moderate amount of restriction. Patient is currently sedated on mechanical ventilation, initial vent settings were SIMV with a rate of 12, tidal 5 of 550, FiO2 100%, and PEEP of 8. Blood gas showed a O2 of 71, pCO2 57, pH of 7.29 on the above mentioned settings, and settings were changed to assist control mode with a rate of 20, tidal volume of 500, FiO2 100% and PEEP of 10, repeat blood gases showed pO2 of 60, pCO2 56, and pH of 7.29, subsequently was a rate increased to 24, and PEEP increased to 13. Maintenance IV is LR at a rate of 50 , nitroglycerin drip at 5 mics per minute, Primacor at 0.3 mcg/kg/min, and insulin drip at 5 u/hr. Cardiac index and output is 9.0/3.9 respectively, patient's intrinsic rhythm is sinus bradycardia with a rate of 65, he is being paced via epicardial AV wires, at the mode of DDD, with a rate of 70. Blood pressure is 121/51, PA pressures is 37/21. He has a mediastinal and left pleural chest tube, and there has been small serosanguineous amount of output in the chest tube collection chamber. Postop hemoglobin is 10.8, WBC is 11.9, platelet count is 144, INR is 1.3, electrolytes and renal profile are within normal limits. Patient is hemodynamically stable, nonoliguric. On 01/10/2018 patient seen again in follow-up in the intensive care unit. Sedated on mechanical ventilation, with vent settings are assist-control mode with a rate of 24, tidal vitamin 500, FiO2 of 65, and PEEP of 5, morning blood gases showed pO2 of 63, pCO2 40, and pH of 7.41. Today's chest x-ray has been reviewed by Dr. Arreola, and showed bilateral consolidation and pleural effusions. Patient was given a sedation holiday, he is following all commands, he was given a spontaneous breathing trial, with pressure support of 5, and CPAP of 5, with FiO2 of 65%, and weaning parameters were completed, and showed tidal vitamin of 380, vital Of 1.2, minute ventilation of 7.9 L, respiratory rate of 22, NIF is -24, RSBI is 52, and these are satisfactory blood gases. Cardiothoracic surgery has ordered a dose of IV Lasix 40 mg. Maintenance IV fluids is LR at a rate of 50 ML per hour, Clevidipine at 10 mg per hour, propofol is currently off, insulin is at 5.5 units per hour, and nitroglycerin is at 5 mcg/min. PA pressures 39/16, CVP is 11, cardiac output and index are 7.1 and 3.1 respectively. Patient was successfully extubated at 0845 to 10 L per high flow nasal cannula, the patient is able to achieve 1000 mL on the incentive spirometry. Patient's current rhythm is sinus rhythm with a rate of 62 BPM, and his current pacemaker settings are backup rate of AAI at a rate of 40 BPM. Midsternal incision is clean dry and intact, stable, mediastinal and left pleural chest tubes are intact, they are connected via Y-connection, and 24 -hour output is 329 mL of serosanguineous drainage. Today's labs were reviewed , WBC is 13.3, hemoglobin is 11.7, INR is 1.1, electrolytes are within normal limits, BUN is 22, creatinine is 1.2. Patient is producing urine it is ranging from 40-75 ML per hour. On 01/16/2018 patient is seen again in follow-up in the intensive care unit. He is a selective overflow, he denies any acute complaints, denies any worsening dyspnea, currently on liters per nasal cannula, and his pulse ox is at 94%, patient remains in sinus rhythm and the rate of 67 BPM, afebrile. Today 's chest x-ray has been reviewed, and show stable bilateral consolidation and pleural effusion. His labs have been reviewed, WBC is 8.8, hemoglobin is 9.4, CO2 31, BUN is 29, creatinine is 1.1. Patient is on anticoagulation form of Eliquis, he is on oral amiodarone, he is being diuresed, remains on IV Lasix at 40 mg twice daily, he is in -1790 mL fluid balance over the last 24 hours. Still has some pedal edema, but that seems to be improving. Lung sounds are positive for diminished breath sounds at the bases, with a few scattered rales. Tolerating ambulation. He had a bowel movement this morning On 01/17/2018 patient seen again in follow-up on selective care unit. He sitting up at the bedside eating lunch, denies any acute distress, senna spirometer effort is 1500 today, pulse ox on 5 L per nasal cannula is 93%. Abdomen is less distended, and is soft, patient had several bowel movements this morning, is verbalizing relief from constipation and abdominal distention. Chest x-ray has been reviewed, shows stable bilateral consolidation and pleural effusion. Patient continues on IV Lasix, he is in negative fluid balance, and his weight is coming down it is down 4.9 kg in the last 24 hours. Today's labs have been noted. BUN is 32, creatinine is 1.19, CO2 is 31, dressed electrolytes are normal. WBCs 12.9. Hemoglobin is 9.5. Patient has been tolerating ambulation. Lung sounds are positive for diminished breath sounds over left base. Patient remains in A. fib/flutter, with a controlled rate, he is on oral anticoagulation. Objective - Vital Signs Vital signs: Vital Signs Temp 96.5 F L 01/17/18 11:23 Pulse 72 01/17/18 12:03 Resp 18 01/17/18 12:03 BP 135/63 01/17/18 11:23 Pulse Ox 93 L 01/17/18 11:23 Intake & Output 01/16/18 01/17/18 01/17/18 18:59 06:59 18:59 Intake Total 1020 10 Output Total 910 350 Balance 110 10 -350 Weight 120.9 kg 116 kg Intake: IV 10 Invasive Line 7 10 Oral 1020 Output: Urine 910 350 Other: Voiding Method Urinal Urinal # Voids 1 # Bowel Movements 1 ABP, PAP, CO, CI - Last Documented Arterial Blood Pressure 94/40 Pulmonary Artery Pressure 39/15 Cardiac Output 7.1 Cardiac Index 2.5 - Exam - Constitutional General appearance: no acute distress, obese. Awake, alert, currently on 4 L per high flow nasal cannula. - EENT Eyes: PERRLA, dentition normal ENT: NA/AT, normal oropharynx - Neck Neck: no lymphadenopathy Carotids: bilateral: upstroke normal Thyroid: bilateral: normal size - Respiratory Respiratory: bilateral: CTA, diminished breath sounds at the left base - Cardiovascular Midsternal incision is clean dry and intact, stable, covered with surgical dressing, mediastinal and left pleural chest tube insertion sites are clean dry and intact Rhythm: regular Heart sounds: normal: S1, S2 ankle Peripheral Edema: absent: None foot Peripheral Edema: absent: None leg Peripheral Edema: absent: None - Gastrointestinal General gastrointestinal: no organomegaly, soft, no tenderness - Integumentary Midsternal incision is clean dry and intact, stable, covered with surgical dressing, mediastinal and left pleural chest tube insertion sites are clean dry and intact, bilateral lower extremities with ESTELA hose and SCDs, left lower leg incisions clean dry and intact Integumentary: normal turgor - Neurologic Awake and alert, no focal neurological deficits, responding appropriately. - Labs CBC & Chem 7: 01/17/18 06:00 01/17/18 06:00 Labs: Abnormal Lab Results - Last 24 Hours (Table) 01/16/18 01/16/18 01/17/18 Range/Units 16:15 21:00 01:56 WBC (3.8-10.6) k/uL RBC (4.30-5.90) m/uL Hgb (13.0-17.5) gm/dL Hct (39.0-53.0) % Neutrophils # (1.3-7.7) k/uL Lymphocytes # (1.0-4.8) k/uL Carbon Dioxide (22-30) mmol/L BUN (9-20) mg/dL Glucose (74-99) mg/dL POC Glucose (mg/dL) 285 H 347 H 239 H (75-99) mg/dL Magnesium (1.6-2.3) mg/dL Total Protein (6.3-8.2) g/dL Albumin (3.5-5.0) g/dL 01/17/18 01/17/18 01/17/18 Range/Units 05:43 06:00 06:00 WBC 12.9 H (3.8-10.6) k/uL RBC 3.32 L (4.30-5.90) m/uL Hgb 9.5 L (13.0-17.5) gm/dL Hct 30.4 L (39.0-53.0) % Neutrophils # 11.2 H (1.3-7.7) k/uL Lymphocytes # 0.6 L (1.0-4.8) k/uL Carbon Dioxide 31 H (22-30) mmol/L BUN 32 H (9-20) mg/dL Glucose 118 H (74-99) mg/dL POC Glucose (mg/dL) 128 H (75-99) mg/dL Magnesium 2.5 H (1.6-2.3) mg/dL Total Protein 5.4 L (6.3-8.2) g/dL Albumin 3.1 L (3.5-5.0) g/dL 01/17/18 Range/Units 11:02 WBC (3.8-10.6) k/uL RBC (4.30-5.90) m/uL Hgb (13.0-17.5) gm/dL Hct (39.0-53.0) % Neutrophils # (1.3-7.7) k/uL Lymphocytes # (1.0-4.8) k/uL Carbon Dioxide (22-30) mmol/L BUN (9-20) mg/dL Glucose (74-99) mg/dL POC Glucose (mg/dL) 183 H (75-99) mg/dL Magnesium (1.6-2.3) mg/dL Total Protein (6.3-8.2) g/dL Albumin (3.5-5.0) g/dL Assessment and Plan Plan: Assessment: #1. Symptomatic multivessel coronary artery disease, status post three-vessel coronary artery bypass grafting, RODRIGUES to LAD, SVG to the PDA and circumflex, with intraoperative CAYLA and exclusion of left atrial appendage with #32 Atriclip , postop day 8 #2. History of coronary artery disease, with 3 previous myocardial infarctions , and previous stenting #3. Lifetime nonsmoker #4. Diabetes mellitus type 2 #5. Hypertension, hyperlipidemia #6. Ischemic cardiomyopathy, with reduced left ventricular systolic function with EF of 35-40% #7. History of CVA/TIA #8. Benign prostatic hypertrophy #9. Anxiety/depression Plan: Continue current plan of treatment, continue the diuretics, continue weaning FiO2, encourage incentive spirometry, ambulation. His chest x-ray has been reviewed, and shows stable findings with small bilateral pleural effusions. Continue oral anticoagulation, patient remains in A. fib/flutter, with controlled rate. I performed a history & physical examination of the patient and discussed their management with my nurse practitioner, Jazmin Day. I reviewed the nurse practitioner's note and agree with the documented findings and plan of care. Lung sounds are positive for diminished breath sounds at the left base. The findings and the impression was discussed with the patient. I attest to the documentation by the nurse practitioner. Time with Patient: Less than 30
--- NOTE | 2018-01-17 14:47 | P.PN ---
Subjective Progress Note Date: 01/17/18 This is 72-year-old gentleman with a known history of prior coronary artery disease, diabetes, hypertension, hyperlipidemia, prior CVA, who is status post three-vessel coronary artery bypass grafting surgery. Patient was seen and examined today, sitting up in the bedside chair, hemodynamically stable. Continues to be in atrial fibrillation with controlled ventricular response. White blood cell count 12.9, hemoglobin 9.5, platelet count 351. Sodium 140, potassium 4.6, BUN 32, creatinine 1.1. Magnesium 2.5. Reaching 1500 on his incentive spirometry. Objective - Vital Signs Vital signs: Vital Signs Temp 96.5 F L 01/17/18 11:23 Pulse 72 01/17/18 12:03 Resp 18 01/17/18 12:03 BP 135/63 01/17/18 11:23 Pulse Ox 93 L 01/17/18 11:23 Intake & Output 01/16/18 01/17/18 01/17/18 18:59 06:59 18:59 Intake Total 1020 10 Output Total 910 350 Balance 110 10 -350 Weight 120.9 kg 116 kg Intake: IV 10 Invasive Line 7 10 Oral 1020 Output: Urine 910 350 Other: Voiding Method Urinal Urinal # Voids 1 # Bowel Movements 1 ABP, PAP, CO, CI - Last Documented Arterial Blood Pressure 94/40 Pulmonary Artery Pressure 39/15 Cardiac Output 7.1 Cardiac Index 2.5 - Exam PHYSICAL EXAMINATION: GENERAL: 72-year-old gentleman in no acute distress at this time of my examination HEENT: Head is atraumatic, normocephalic. Pupils equal, round. Sclera anicteric. Conjunctiva are clear. Mucous membranes of the mouth are moist. Neck is supple. There is no elevated jugular venous pressure.] bruit is heard. HEART EXAMINATION: Heart S1 and S2 irregularly irregular CHEST EXAMINATION: On's reveal diminished air entry to bilateral bases. ABDOMEN: Soft, nontender. Bowel sounds are heard. No organomegaly noted. EXTREMITIES: 2+ peripheral pulses with trace evidence of peripheral edema and no calf tenderness noted. Venodyne's in place. NEUROLOGIC patient is awake, alert and oriented ?-3. . - Labs CBC & Chem 7: 01/17/18 06:00 01/17/18 06:00 Labs: Abnormal Lab Results - Last 24 Hours (Table) 01/16/18 01/16/18 01/17/18 Range/Units 16:15 21:00 01:56 WBC (3.8-10.6) k/uL RBC (4.30-5.90) m/uL Hgb (13.0-17.5) gm/dL Hct (39.0-53.0) % Neutrophils # (1.3-7.7) k/uL Lymphocytes # (1.0-4.8) k/uL Carbon Dioxide (22-30) mmol/L BUN (9-20) mg/dL Glucose (74-99) mg/dL POC Glucose (mg/dL) 285 H 347 H 239 H (75-99) mg/dL Magnesium (1.6-2.3) mg/dL Total Protein (6.3-8.2) g/dL Albumin (3.5-5.0) g/dL 01/17/18 01/17/18 01/17/18 Range/Units 05:43 06:00 06:00 WBC 12.9 H (3.8-10.6) k/uL RBC 3.32 L (4.30-5.90) m/uL Hgb 9.5 L (13.0-17.5) gm/dL Hct 30.4 L (39.0-53.0) % Neutrophils # 11.2 H (1.3-7.7) k/uL Lymphocytes # 0.6 L (1.0-4.8) k/uL Carbon Dioxide 31 H (22-30) mmol/L BUN 32 H (9-20) mg/dL Glucose 118 H (74-99) mg/dL POC Glucose (mg/dL) 128 H (75-99) mg/dL Magnesium 2.5 H (1.6-2.3) mg/dL Total Protein 5.4 L (6.3-8.2) g/dL Albumin 3.1 L (3.5-5.0) g/dL 01/17/18 Range/Units 11:02 WBC (3.8-10.6) k/uL RBC (4.30-5.90) m/uL Hgb (13.0-17.5) gm/dL Hct (39.0-53.0) % Neutrophils # (1.3-7.7) k/uL Lymphocytes # (1.0-4.8) k/uL Carbon Dioxide (22-30) mmol/L BUN (9-20) mg/dL Glucose (74-99) mg/dL POC Glucose (mg/dL) 183 H (75-99) mg/dL Magnesium (1.6-2.3) mg/dL Total Protein (6.3-8.2) g/dL Albumin (3.5-5.0) g/dL Assessment and Plan Plan: Assessment and plan #1 status post coronary artery bypass grafting surgery #2 paroxysmal atrial fibrillation #3 diabetes #4 hypertension #5 ischemic cardiomyopathy #6 prior CVA #7 anxiety and depression Plan From cardiology's perspective, we will continue the patient on his current medications. He has been encouraged regarding the use of his incentive spirometry. DNP note has been reviewed, I agree with a documented findings and plan of care. Patient was seen and examined.
[2018-01-17 16:51] LABS: Glucose,Whole Blood 60 mg/dL (75-99)
[2018-01-17 16:53] LABS: Glucose,Whole Blood 86 mg/dL (75-99)
[2018-01-17] MEDS ORDERED: INSULN ASP PRT/INSULIN ASPART 100 UNIT/ML 10 ML VIAL SQ SCH (17:30)
[2018-01-17 20:42] LABS: Glucose,Whole Blood 171 mg/dL (75-99)
[2018-01-17] MEDS: CITALOPRAM HYDROBROMIDE 20 MG TAB PO SCH (21:02)
[2018-01-17] MEDS: SENNOSIDES-DOCUSATE SODIUM 1 EACH TAB PO SCH (21:02)
--- NOTE | 2018-01-17 22:33 | PN ---
PROGRESS NOTE ATTENDING PHYSICIAN: Dr. Orosco. CONSULTING PHYSICIAN: Dr. Alfonso Barr. CHIEF COMPLAINT: Re-evaluation. HISTORY OF PRESENT ILLNESS: This is a 72-year-old who was admitted to the hospital and undergone CABG. The patient in atrial fibrillation/flutter. The patient also had some chest pain re-evaluated, noted no evidence of any graft blockage. The patient is progressing well. REVIEW OF SYSTEMS: NEURO: Denies any headaches, dizziness. PSYCH: No anxiety. Some depression. CARDIAC: Denies chest pain, angina, palpitations. RESPIRATORY: Denies shortness of breath. Mild cough. No hemoptysis. GI: No nausea, vomiting, abdominal pain. Did have a good bowel movement today with help. : No symptoms of dysuria, hematuria. Does have improved urinary flow after the bowel movement. EXTREMITIES: Some edema. Ecchymosis of left leg. CONSTITUTIONAL: No fever, chills. HEMATOLOGICAL: No anemia. No bleeding. PHYSICAL EXAMINATION: Pleasant gentleman at present in no distress. Vital signs revealed 96, pulse 60, respirations of 18, blood pressure 119/56, mean pressure of impression of 77, pulse ox of 94% on 5L. HEENT: Normocephalic. NECK: No JVD. CHEST: Decreased air flow, left base. CARDIAC: Normal S1, S2 with no gallop. Systolic murmur 2/6 left sternal border. Regular rhythm. Abdomen is protuberant, soft. Bowel sounds present. Extremities revealed edema 1+. Patient has ecchymosis of the left thigh and left lower leg. This is the site of the previous vein harvest. Neurologically awake, alert, oriented x3 with well-coordinated movements. LABORATORY ASSESSMENT: White count 12.9, hemoglobin 9.5. Electrolytes normal. BUN 34.2, creatinine 1.19, glucose 118. Albumin 3.5, magnesium 2.5. ASSESSMENT: 1. Coronary artery disease, status post coronary artery bypass graft. 2. Diabetes mellitus. 3. Dilated cardiomyopathy. 4. Congestive cardiac failure secondary to systolic dysfunction. 5. Atrial fibrillation/flutter. 6. Anemia secondary to acute blood loss. PLAN: The patient is stable. Continue present medical regimen. Patient's condition discussed with the patient and the surgeon. Prognosis remains guarded. Continue present medical regimen. Patient's insulin decreased. MMODL / IJN: [id number] /
[2018-01-18 02:28] LABS: Glucose,Whole Blood 125 mg/dL (75-99)
[2018-01-18] MEDS: INSULIN ASPART 100 UNIT/ML 1 ML 10 ML VIAL SQ SCH ×5 (02:31→21:03)
[2018-01-18 05:49] LABS: Glucose,Whole Blood 162 mg/dL (75-99)
[2018-01-18 05:51] LABS: Basophils % (A) 0 %; Eosinophils # (A) 0.4 k/uL (0-0.7); Eosinophils % (A) 4 %; HCT 30.1 % (39.0-53.0); HGB 9.7 gm/dL (13.0-17.5); Hypochromasia Slight; Lymphocytes % (A) 9 %; MCH 30.2 pg (25.0-35.0); MCHC 32.3 g/dL (31.0-37.0); MCV 93.4 fL (80.0-100.0); Mean Platelet Volume 7.8; Monocytes # (A) 0.7 k/uL (0-1.0); Monocytes % (A) 6 %; Neutrophils # (A) 9.1 k/uL (1.3-7.7); Neutrophils % (A) 80 %; Platelet Count 353 k/uL (150-450); RBC 3.23 m/uL (4.30-5.90); RDW 13.3 % (11.5-15.5); WBC 11.5 k/uL (3.8-10.6)
[2018-01-18 05:59] LABS: Albumin 3.1 g/dL (3.5-5.0); Calcium 8.4 mg/dL (8.4-10.2); Magnesium 2.4 mg/dL (1.6-2.3); Potassium 4.2 mmol/L (3.5-5.1); Total Bilirubin 0.9 mg/dL (0.2-1.3); Total Protein 5.3 g/dL (6.3-8.2)
[2018-01-18] MEDS: METOPROLOL TARTRATE 12.5 MG TAB PO SCH ×2 (06:38→17:01)
[2018-01-18] MEDS: PANTOPRAZOLE 40 MG TABLET PO SCH (06:39)
[2018-01-18] MEDS: AMIODARONE 200 MG TAB PO SCH ×2 (08:05→21:02)
[2018-01-18] MEDS: LOSARTAN 25 MG TAB PO SCH (08:05)
[2018-01-18] MEDS: ASPIRIN 81 MG PO SCH (08:05)
[2018-01-18] MEDS: APIXABAN 5 MG TAB PO SCH ×2 (08:05→21:02)
[2018-01-18] MEDS: FUROSEMIDE 10 MG/ML 2 ML VIAL IV SCH ×2 (08:05→15:15)
[2018-01-18] MEDS: TAMSULOSIN 0.4 MG CAP.ER.24H PO SCH ×2 (08:06→21:03)
[2018-01-18] MEDS: HYDROcodone/APAP 5-325MG 1 EACH TAB PO PRN ×3 (08:06→21:11)
[2018-01-18] MEDS: ATORVASTATIN 40 MG TAB PO SCH (08:06)
--- NOTE | 2018-01-18 08:07 | XR ---
EXAMINATION TYPE: XR chest 2V DATE OF EXAM: 01/18/2018 COMPARISON: 01/18/2018 TECHNIQUE: PA and lateral views submitted. HISTORY: Post cardiac surgery FINDINGS: Cardiomegaly, postoperative change, bilateral pleural effusion and consolidation noted. Rib deformiti es are stable. No sizable pneumothorax. IMPRESSION: 1. Bilateral consolidation and pleural effusion are stable.
[2018-01-18] MEDS: IPRATROPIUM-ALBUTEROL 3 ML NEB INHALATION SCH ×4 (08:09→21:32)
[2018-01-18] MEDS: INSULN ASP PRT/INSULIN ASPART 100 UNIT/ML 10 ML VIAL SQ SCH (09:40)
[2018-01-18 11:36] LABS: Glucose,Whole Blood 371 mg/dL (75-99)
--- NOTE | 2018-01-18 11:44 | P.PN ---
Subjective Progress Note Date: 01/18/18 Principal diagnosis: Multivessel coronary artery disease, status post three-vessel CABG, postop day 1 Mr. Friedman is a 72-year-old white male patient of Dr. Barr with past medical history of coronary artery disease with previous myocardial infarction and stenting, insulin-dependent diabetes mellitus, hypertension, hyperlipidemia, chronic congestive heart failure with systolic dysfunction, history of CVA/TIA, lifetime nonsmoker, who we are seeing in consultation today for pulmonary/ critical care management, in the intensive care unit, post 3 vessel coronary artery bypass grafting, RODRIGUES to LAD, SVG to the PDA, and circumflex, and left atrial appendage exclusion with Atriclip, and intraoperative CAYLA. Patient was having symptoms of atypical angina, on the right side of his chest, radiating down his right arm, he underwent heart catheterization on 12/06/2017 which demonstrated left main coronary artery with moderate 20% diffuse disease, total occlusion of the left anterior descending coronary artery with in-stent stenosis , circumflex artery with 70-80% narrowing and mid RCA with 60% stenosis. LV gram showed an ejection fraction of 35-40%, with hypokinesia of the anteroapical wall. 2-D echocardiogram showed moderately impaired systolic function with an ejection fraction of 35-40%. Patient was recommended for surgical revascularization. Preop bedside spirometry revealed FEV1 of 2.0 L, or 62% of predicted, FVC of 2.5 L or 57% of predicted, and patient has a moderate amount of restriction. Patient is currently sedated on mechanical ventilation, initial vent settings were SIMV with a rate of 12, tidal 5 of 550, FiO2 100%, and PEEP of 8. Blood gas showed a O2 of 71, pCO2 57, pH of 7.29 on the above mentioned settings, and settings were changed to assist control mode with a rate of 20, tidal volume of 500, FiO2 100% and PEEP of 10, repeat blood gases showed pO2 of 60, pCO2 56, and pH of 7.29, subsequently was a rate increased to 24, and PEEP increased to 13. Maintenance IV is LR at a rate of 50 , nitroglycerin drip at 5 mics per minute, Primacor at 0.3 mcg/kg/min, and insulin drip at 5 u/hr. Cardiac index and output is 9.0/3.9 respectively, patient's intrinsic rhythm is sinus bradycardia with a rate of 65, he is being paced via epicardial AV wires, at the mode of DDD, with a rate of 70. Blood pressure is 121/51, PA pressures is 37/21. He has a mediastinal and left pleural chest tube, and there has been small serosanguineous amount of output in the chest tube collection chamber. Postop hemoglobin is 10.8, WBC is 11.9, platelet count is 144, INR is 1.3, electrolytes and renal profile are within normal limits. Patient is hemodynamically stable, nonoliguric. On 01/10/2018 patient seen again in follow-up in the intensive care unit. Sedated on mechanical ventilation, with vent settings are assist-control mode with a rate of 24, tidal vitamin 500, FiO2 of 65, and PEEP of 5, morning blood gases showed pO2 of 63, pCO2 40, and pH of 7.41. Today's chest x-ray has been reviewed by Dr. Arreola, and showed bilateral consolidation and pleural effusions. Patient was given a sedation holiday, he is following all commands, he was given a spontaneous breathing trial, with pressure support of 5, and CPAP of 5, with FiO2 of 65%, and weaning parameters were completed, and showed tidal vitamin of 380, vital Of 1.2, minute ventilation of 7.9 L, respiratory rate of 22, NIF is -24, RSBI is 52, and these are satisfactory blood gases. Cardiothoracic surgery has ordered a dose of IV Lasix 40 mg. Maintenance IV fluids is LR at a rate of 50 ML per hour, Clevidipine at 10 mg per hour, propofol is currently off, insulin is at 5.5 units per hour, and nitroglycerin is at 5 mcg/min. PA pressures 39/16, CVP is 11, cardiac output and index are 7.1 and 3.1 respectively. Patient was successfully extubated at 0845 to 10 L per high flow nasal cannula, the patient is able to achieve 1000 mL on the incentive spirometry. Patient's current rhythm is sinus rhythm with a rate of 62 BPM, and his current pacemaker settings are backup rate of AAI at a rate of 40 BPM. Midsternal incision is clean dry and intact, stable, mediastinal and left pleural chest tubes are intact, they are connected via Y-connection, and 24 -hour output is 329 mL of serosanguineous drainage. Today's labs were reviewed , WBC is 13.3, hemoglobin is 11.7, INR is 1.1, electrolytes are within normal limits, BUN is 22, creatinine is 1.2. Patient is producing urine it is ranging from 40-75 ML per hour. On 01/16/2018 patient is seen again in follow-up in the intensive care unit. He is a selective overflow, he denies any acute complaints, denies any worsening dyspnea, currently on liters per nasal cannula, and his pulse ox is at 94%, patient remains in sinus rhythm and the rate of 67 BPM, afebrile. Today 's chest x-ray has been reviewed, and show stable bilateral consolidation and pleural effusion. His labs have been reviewed, WBC is 8.8, hemoglobin is 9.4, CO2 31, BUN is 29, creatinine is 1.1. Patient is on anticoagulation form of Eliquis, he is on oral amiodarone, he is being diuresed, remains on IV Lasix at 40 mg twice daily, he is in -1790 mL fluid balance over the last 24 hours. Still has some pedal edema, but that seems to be improving. Lung sounds are positive for diminished breath sounds at the bases, with a few scattered rales. Tolerating ambulation. He had a bowel movement this morning On 01/17/2018 patient seen again in follow-up on [facility] care unit. He sitting up at the bedside eating lunch, denies any acute distress, senna spirometer effort is 1500 today, pulse ox on 5 L per nasal cannula is 93%. Abdomen is less distended, and is soft, patient had several bowel movements this morning, is verbalizing relief from constipation and abdominal distention. Chest x-ray has been reviewed, shows stable bilateral consolidation and pleural effusion. Patient continues on IV Lasix, he is in negative fluid balance, and his weight is coming down it is down 4.9 kg in the last 24 hours. Today's labs have been noted. BUN is 32, creatinine is 1.19, CO2 is 31, dressed electrolytes are normal. WBCs 12.9. Hemoglobin is 9.5. Patient has been tolerating ambulation. Lung sounds are positive for diminished breath sounds over left base. Patient remains in A. fib/flutter, with a controlled rate, he is on oral anticoagulation. On 01/18/2018 patient seen in follow-up. FiO2 is currently down to 3 L, and his pulse ox is 94%, no worsening dyspnea, vital signs are stable, patient is afebrile. Patient has been ambulating, tolerating activity well. Recent shower today. His weight is down to 114.7 kg from 116 kg in the last 24 hours. His chest x-ray today showed bilateral consolidation and pleural effusions, stable findings. His labs were noted, the PVCs 11.5, hemoglobin is 9.7, electrolytes and renal profile are relatively unremarkable. Remains in atrial fib/flutter, with a controlled rate. She denies any shortness of breath, he has a mild cough, no chest pain. Objective - Vital Signs Vital signs: Vital Signs Temp 96.0 F L 01/18/18 07:56 Pulse 68 01/18/18 08:26 Resp 18 01/18/18 07:56 BP 116/67 01/18/18 07:56 Pulse Ox 94 L 01/18/18 08:14 Intake & Output 01/17/18 01/18/18 01/18/18 18:59 06:59 18:59 Intake Total 744 20 360 Output Total 350 250 Balance 394 -230 360 Weight 114.7 kg Intake: IV 20 .9 10 Invasive Line 7 10 Oral 744 360 Output: Urine 350 250 Other: Voiding Method Urinal # Voids 1 # Bowel Movements 1 ABP, PAP, CO, CI - Last Documented Arterial Blood Pressure 94/40 Pulmonary Artery Pressure 39/15 Cardiac Output 7.1 Cardiac Index 2.5 - Exam - Constitutional General appearance: no acute distress, obese. Awake, alert, currently on 3 L per high flow nasal cannula. - EENT Eyes: PERRLA, dentition normal ENT: NA/AT, normal oropharynx - Neck Neck: no lymphadenopathy Carotids: bilateral: upstroke normal Thyroid: bilateral: normal size - Respiratory Respiratory: bilateral: CTA, diminished breath sounds at the left base - Cardiovascular Midsternal incision is clean dry and intact, stable, covered with surgical dressing, mediastinal and left pleural chest tube insertion sites are clean dry and intact Rhythm: regular Heart sounds: normal: S1, S2 ankle Peripheral Edema: absent: None foot Peripheral Edema: absent: None leg Peripheral Edema: absent: None - Gastrointestinal General gastrointestinal: no organomegaly, soft, no tenderness - Integumentary Midsternal incision is clean dry and intact, stable, covered with surgical dressing, mediastinal and left pleural chest tube insertion sites are clean dry and intact, bilateral lower extremities with ESTELA hose left lower leg incisions clean dry and intact Integumentary: normal turgor - Neurologic Awake and alert, no focal neurological deficits, responding appropriately. - Labs CBC & Chem 7: 01/18/18 05:29 01/18/18 05:29 Labs: Abnormal Lab Results - Last 24 Hours (Table) 01/17/18 01/17/18 01/18/18 Range/Units 16:26 20:40 02:26 WBC (3.8-10.6) k/uL RBC (4.30-5.90) m/uL Hgb (13.0-17.5) gm/dL Hct (39.0-53.0) % Neutrophils # (1.3-7.7) k/uL Carbon Dioxide (22-30) mmol/L BUN (9-20) mg/dL Glucose (74-99) mg/dL POC Glucose (mg/dL) 60 L 171 H 125 H (75-99) mg/dL Magnesium (1.6-2.3) mg/dL Total Protein (6.3-8.2) g/dL Albumin (3.5-5.0) g/dL 01/18/18 01/18/18 01/18/18 Range/Units 05:29 05:29 05:48 WBC 11.5 H (3.8-10.6) k/uL RBC 3.23 L (4.30-5.90) m/uL Hgb 9.7 L (13.0-17.5) gm/dL Hct 30.1 L (39.0-53.0) % Neutrophils # 9.1 H (1.3-7.7) k/uL Carbon Dioxide 31 H (22-30) mmol/L BUN 34 H (9-20) mg/dL Glucose 140 H (74-99) mg/dL POC Glucose (mg/dL) 162 H (75-99) mg/dL Magnesium 2.4 H (1.6-2.3) mg/dL Total Protein 5.3 L (6.3-8.2) g/dL Albumin 3.1 L (3.5-5.0) g/dL 01/18/18 Range/Units 11:31 WBC (3.8-10.6) k/uL RBC (4.30-5.90) m/uL Hgb (13.0-17.5) gm/dL Hct (39.0-53.0) % Neutrophils # (1.3-7.7) k/uL Carbon Dioxide (22-30) mmol/L BUN (9-20) mg/dL Glucose (74-99) mg/dL POC Glucose (mg/dL) 371 H (75-99) mg/dL Magnesium (1.6-2.3) mg/dL Total Protein (6.3-8.2) g/dL Albumin (3.5-5.0) g/dL Assessment and Plan Plan: Assessment: #1. Symptomatic multivessel coronary artery disease, status post three-vessel coronary artery bypass grafting, RODRIGUES to LAD, SVG to the PDA and circumflex, with intraoperative CAYLA and exclusion of left atrial appendage with #32 Atriclip , postop day 9 #2. History of coronary artery disease, with 3 previous myocardial infarctions , and previous stenting #3. Lifetime nonsmoker #4. Diabetes mellitus type 2 #5. Hypertension, hyperlipidemia #6. Ischemic cardiomyopathy, with reduced left ventricular systolic function with EF of 35-40% #7. History of CVA/TIA #8. Benign prostatic hypertrophy #9. Anxiety/depression Plan: Continue current plan of treatment, IV diuretics per cardiothoracic surgery, chest x-ray has been reviewed, and shows stable findings with bilateral pleural effusions. Continue encouraging ambulation, wean FiO2, incentive spirometry use. We'll continue to follow. I performed a history & physical examination of the patient and discussed their management with my nurse practitioner, Jazmin Day. I reviewed the nurse practitioner's note and agree with the documented findings and plan of care. Lung sounds are positive for diminished breath sounds at the left base. The findings and the impression was discussed with the patient. I attest to the documentation by the nurse practitioner. Time with Patient: Less than 30
--- NOTE | 2018-01-18 12:28 | P.PN ---
Subjective Progress Note Date: 01/18/18 This is 72-year-old gentleman with a known history of prior coronary artery disease, diabetes, hypertension, hyperlipidemia, prior CVA, who is status post three-vessel coronary artery bypass grafting surgery. Patient was seen and examined today, sitting up in the bedside chair, hemodynamically stable. Continues to be in atrial fibrillation with controlled ventricular response. White blood cell count 12.9, hemoglobin 9.5, platelet count 351. Sodium 140, potassium 4.6, BUN 32, creatinine 1.1. Magnesium 2.5. Reaching 1500 on his incentive spirometry. 01/18/2018 Patient seen and examined this morning, doing well overall. Reaching 1500 on his incentive spirometry. Blood pressure 115/50, heart rate in the 70s. In normal sinus rhythm. White blood cell count 11.5, hemoglobin 9.7, platelet count 353. Sodium 139, potassium 4.2, BUN 34, creatinine 1.2. Magnesium 2.4. Objective - Vital Signs Vital signs: Vital Signs Temp 98.2 F 01/18/18 11:42 Pulse 70 01/18/18 12:05 Resp 18 01/18/18 11:42 BP 115/54 01/18/18 11:42 Pulse Ox 91 L 01/18/18 11:42 Intake & Output 01/17/18 01/18/18 01/18/18 18:59 06:59 18:59 Intake Total 744 20 360 Output Total 350 250 Balance 394 -230 360 Weight 114.7 kg Intake: IV 20 .9 10 Invasive Line 7 10 Oral 744 360 Output: Urine 350 250 Other: Voiding Method Urinal # Voids 1 # Bowel Movements 1 ABP, PAP, CO, CI - Last Documented Arterial Blood Pressure 94/40 Pulmonary Artery Pressure 39/15 Cardiac Output 7.1 Cardiac Index 2.5 - Exam PHYSICAL EXAMINATION: GENERAL: 72-year-old gentleman in no acute distress at this time of my examination HEENT: Head is atraumatic, normocephalic. Pupils equal, round. Sclera anicteric. Conjunctiva are clear. Mucous membranes of the mouth are moist. Neck is supple. There is no elevated jugular venous pressure.] bruit is heard. HEART EXAMINATION: Heart S1 and S2 irregularly irregular CHEST EXAMINATION: Lungs reveal diminished air entry to bilateral bases. ABDOMEN: Soft, nontender. Bowel sounds are heard. No organomegaly noted. EXTREMITIES: 2+ peripheral pulses with trace evidence of peripheral edema and no calf tenderness noted. Venodyne's in place. NEUROLOGIC patient is awake, alert and oriented ?-3. . - Labs CBC & Chem 7: 01/18/18 05:29 01/18/18 05:29 Labs: Abnormal Lab Results - Last 24 Hours (Table) 01/17/18 01/17/18 01/18/18 Range/Units 16:26 20:40 02:26 WBC (3.8-10.6) k/uL RBC (4.30-5.90) m/uL Hgb (13.0-17.5) gm/dL Hct (39.0-53.0) % Neutrophils # (1.3-7.7) k/uL Carbon Dioxide (22-30) mmol/L BUN (9-20) mg/dL Glucose (74-99) mg/dL POC Glucose (mg/dL) 60 L 171 H 125 H (75-99) mg/dL Magnesium (1.6-2.3) mg/dL Total Protein (6.3-8.2) g/dL Albumin (3.5-5.0) g/dL 01/18/18 01/18/18 01/18/18 Range/Units 05:29 05:29 05:48 WBC 11.5 H (3.8-10.6) k/uL RBC 3.23 L (4.30-5.90) m/uL Hgb 9.7 L (13.0-17.5) gm/dL Hct 30.1 L (39.0-53.0) % Neutrophils # 9.1 H (1.3-7.7) k/uL Carbon Dioxide 31 H (22-30) mmol/L BUN 34 H (9-20) mg/dL Glucose 140 H (74-99) mg/dL POC Glucose (mg/dL) 162 H (75-99) mg/dL Magnesium 2.4 H (1.6-2.3) mg/dL Total Protein 5.3 L (6.3-8.2) g/dL Albumin 3.1 L (3.5-5.0) g/dL 01/18/18 Range/Units 11:31 WBC (3.8-10.6) k/uL RBC (4.30-5.90) m/uL Hgb (13.0-17.5) gm/dL Hct (39.0-53.0) % Neutrophils # (1.3-7.7) k/uL Carbon Dioxide (22-30) mmol/L BUN (9-20) mg/dL Glucose (74-99) mg/dL POC Glucose (mg/dL) 371 H (75-99) mg/dL Magnesium (1.6-2.3) mg/dL Total Protein (6.3-8.2) g/dL Albumin (3.5-5.0) g/dL Assessment and Plan Plan: Assessment and plan #1 status post coronary artery bypass grafting surgery #2 paroxysmal atrial fibrillation #3 diabetes #4 hypertension #5 ischemic cardiomyopathy #6 prior CVA #7 anxiety and depression Plan From cardiology's perspective, we will continue the patient on his current medications. He has been encouraged regarding the use of his incentive spirometry. DNP note has been reviewed, I agree with a documented findings and plan of care. Patient was seen and examined.
--- NOTE | 2018-01-18 14:35 | P.PN ---
Subjective Progress Note Date: 01/18/18 Principal diagnosis: Unstable angina. Triple vessel coronary artery disease. Previous myocardial infarction with stent placement, insulin-dependent diabetes mellitus with preoperative hemoglobin A1c 6.8%, hypertension, hyperlipidemia, mild COPD with preoperative FEV1 62% of predicted, history of depression, and chronic systolic heart failure with ejection fraction 35-40%, and obesity. POD #9 coronary bypass grafting 3 with left internal mammary to the left anterior descending artery, a reverse greater saphenous vein graft off the aorta to the circumflex artery and the posterior descending artery, with left greater saphenous vein endoscopic harvesting. Clip ligation of the left atrial appendage with a #35 mm AtriClip. Intraoperative transesophageal echocardiogram. Postoperative atrial fibrillation, an unexpected but potential outcome of surgery. Patient is sitting up to bedside chair. He is in no acute distress. He reports that his pain is well controlled on his current when necessary medications. Remote telemetry remains showing atrial fibrillation heart rate 71. He is complaining of left lower leg tenderness and bruising. He reports that he is having some shortness of breath with activity, current oxygen saturation 92% on 3 L nasal cannula. Objective - Vital Signs Vital signs: Vital Signs Temp 98.2 F 01/18/18 11:42 Pulse 70 01/18/18 12:05 Resp 18 01/18/18 11:42 BP 115/54 01/18/18 11:42 Pulse Ox 91 L 01/18/18 11:42 Intake & Output 01/17/18 01/18/18 01/18/18 18:59 06:59 18:59 Intake Total 744 20 600 Output Total 350 250 Balance 394 -230 600 Weight 114.7 kg Intake: IV 20 .9 10 Invasive Line 7 10 Oral 744 600 Output: Urine 350 250 Other: Voiding Method Urinal # Voids 1 # Bowel Movements 1 ABP, PAP, CO, CI - Last Documented Arterial Blood Pressure 94/40 Pulmonary Artery Pressure 39/15 Cardiac Output 7.1 Cardiac Index 2.5 - Constitutional General appearance: Present: cooperative, morbidly obese, no acute distress - Respiratory Details: Lung sounds are essentially clear throughout, diminished bilateral bases. Respirations are symmetrical and nonlabored. Oxygen saturation are 92% on 3 L nasal cannula. He is achieving 1250 mL on his incentive spirometry. - Cardiovascular Details: Irregular rhythm and controlled rate. S1 and S2 present, negative for S3, gallop or murmur. Sternum is stable. Remote telemetry showing atrial fibrillation heart rate 71. No edema present. Knee-high ESTELA hose and sequential compression devices in place was bilateral lower extremities. - Gastrointestinal Gastrointestinal Comment(s): Abdomen is soft, nontender and nondistended. Active bowel sounds all 4 abdominal quadrants. Tolerating oral intake. Obese. No guarding or rigidity. - Genitourinary Genitourinary Comment(s): Voiding clear yellow urine. - Integumentary Integumentary Comment(s): Skin is warm and dry. No clubbing or cyanosis present. Midline sternal incision clean dry and approximated. No drainage or redness present. Left leg EVH site clean dry and approximated. Ecchymotic area to his left lower extremity and left thigh. - Neurologic Neurologic Comment(s): No focal deficits. Neurologic: Present: CNII-XII intact - Musculoskeletal Musculoskeletal: Present: gait normal, generalized weakness, strength equal bilaterally - Psychiatric Psychiatric: Present: A&O x's 3, appropriate affect, intact judgment & insight - Allied health notes Allied health notes reviewed: nursing - Labs CBC & Chem 7: 01/18/18 05:29 01/18/18 05:29 Labs: Abnormal Lab Results - Last 24 Hours (Table) 01/17/18 01/17/18 01/18/18 Range/Units 16:26 20:40 02:26 WBC (3.8-10.6) k/uL RBC (4.30-5.90) m/uL Hgb (13.0-17.5) gm/dL Hct (39.0-53.0) % Neutrophils # (1.3-7.7) k/uL Carbon Dioxide (22-30) mmol/L BUN (9-20) mg/dL Glucose (74-99) mg/dL POC Glucose (mg/dL) 60 L 171 H 125 H (75-99) mg/dL Magnesium (1.6-2.3) mg/dL Total Protein (6.3-8.2) g/dL Albumin (3.5-5.0) g/dL 01/18/18 01/18/18 01/18/18 Range/Units 05:29 05:29 05:48 WBC 11.5 H (3.8-10.6) k/uL RBC 3.23 L (4.30-5.90) m/uL Hgb 9.7 L (13.0-17.5) gm/dL Hct 30.1 L (39.0-53.0) % Neutrophils # 9.1 H (1.3-7.7) k/uL Carbon Dioxide 31 H (22-30) mmol/L BUN 34 H (9-20) mg/dL Glucose 140 H (74-99) mg/dL POC Glucose (mg/dL) 162 H (75-99) mg/dL Magnesium 2.4 H (1.6-2.3) mg/dL Total Protein 5.3 L (6.3-8.2) g/dL Albumin 3.1 L (3.5-5.0) g/dL 01/18/18 Range/Units 11:31 WBC (3.8-10.6) k/uL RBC (4.30-5.90) m/uL Hgb (13.0-17.5) gm/dL Hct (39.0-53.0) % Neutrophils # (1.3-7.7) k/uL Carbon Dioxide (22-30) mmol/L BUN (9-20) mg/dL Glucose (74-99) mg/dL POC Glucose (mg/dL) 371 H (75-99) mg/dL Magnesium (1.6-2.3) mg/dL Total Protein (6.3-8.2) g/dL Albumin (3.5-5.0) g/dL - Imaging and Cardiology Chest x-ray: report reviewed, image reviewed Assessment and Plan (1) Coronary artery disease Current Visit: Yes Status: Chronic Code(s): I25.10 - ATHSCL HEART DISEASE OF [place] CORONARY ARTERY W/O ANG PCTRS SNOMED Code(s): 74148675 (2) History of heart artery stent Current Visit: Yes Status: Chronic Code(s): Z95.5 - PRESENCE OF CORONARY ANGIOPLASTY IMPLANT AND GRAFT SNOMED Code(s): 860585580 (3) Hyperlipidemia Current Visit: Yes Status: Chronic Code(s): E78.5 - HYPERLIPIDEMIA, UNSPECIFIED SNOMED Code(s): 72975334 (4) Hypertension Current Visit: Yes Status: Chronic Code(s): I10 - ESSENTIAL (PRIMARY) HYPERTENSION SNOMED Code(s): 03696336 (5) Insulin dependent diabetes mellitus Current Visit: Yes Status: Chronic Code(s): E11.9 - TYPE 2 DIABETES MELLITUS WITHOUT COMPLICATIONS; Z79.4 - SEN[facility] LIVING (CURRENT) USE OF INSULIN SNOMED Code(s): 87883948 (6) Obesity Current Visit: Yes Status: Chronic Code(s): E66.9 - OBESITY, UNSPECIFIED SNOMED Code(s): 537773013 (7) Previous myocardial infarction older than 8 weeks Current Visit: No Status: Resolved Code(s): I25.2 - OLD MYOCARDIAL INFARCTION SNOMED Code(s): 2637647 Plan: 1. Continue low dose aspirin, statin, Cozaar, beta jack. Will increase beta jack therapy as tolerated. 2. Continue amiodarone for A. fib prophylaxis, decrease to 200 mg twice daily. Continue Eliquis for anticoagulation. 3. Continue Lasix 40 mg IV twice daily. 4. Wean O2 as tolerated. Encourage incentive spirometry use 10 times every hour. 5. Bronchodilators per Dr. Art. 6. Will monitor daily labs and x-rays. 7. GI/DVT prophylaxis. 8. Insulin management per primary care service. 9. Pain management with current medication regimen. 10. Increase activity, ambulate in hallway PT/OT/cardiac rehab following. 11. Apply Marcelo wrap from toes to thigh to his left leg. 12. Discharge planning in progress. Anticipate discharge to inpatient rehab by the end of the week. Time with Patient: Greater than 30
[2018-01-18 16:39] LABS: Glucose,Whole Blood 179 mg/dL (75-99)
[2018-01-18] MEDS ORDERED: INSULN ASP PRT/INSULIN ASPART 100 UNIT/ML 10 ML VIAL SQ SCH (17:30)
[2018-01-18] MEDS: CITALOPRAM HYDROBROMIDE 20 MG TAB PO SCH (21:03)
[2018-01-18] MEDS: SENNOSIDES-DOCUSATE SODIUM 1 EACH TAB PO SCH (21:03)
[2018-01-18 21:20] LABS: Glucose,Whole Blood 108 mg/dL (75-99)
--- NOTE | 2018-01-18 22:01 | PN ---
PROGRESS NOTE CHIEF COMPLAINT: Re-evaluation. HISTORY OF PRESENT ILLNESS: This is a 72-year-old gentleman, status post CABG. The patient is actually doing fairly well. He feels better than yesterday. REVIEW OF SYSTEMS: NEURO: Denies any headaches, dizziness. PSYCH: No anxiety. CARDIAC: No chest pain, angina, palpitations. RESPIRATORY: Denies any shortness of breath, cough, hemoptysis. GI: No nausea, vomiting, abdominal pain, diarrhea. : No symptoms of dysuria, hematuria. EXTREMITIES: Some pain, left lower leg. CONSTITUTIONAL: No fever or chills. PHYSICAL EXAMINATION: Pleasant gentleman in no distress. VITAL SIGNS: Stable. The patient has been afebrile. Temperature 96, pulse 69, respirations 18, blood pressure 116/67, pulse ox of 94% on 4 L. HEENT: Normocephalic. NECK: No JVD. CHEST: Clear to auscultation with decreased flow at the bases, especially left base. No wheezing or rhonchi. CARDIAC: Distant heart sounds S1, S2 with no gallops. Regular rhythm. On telemetry at present. The patient is in sinus rhythm. ABDOMEN: Soft. Bowel sounds active. Extremities reveal no edema. The patient also has significant ecchymosis of the left leg, both in the thigh area and the left lower leg. NEUROLOGIC: Awake, alert, oriented x3 with well-coordinated movements. Mood is good today. LABORATORY ASSESSMENT: White count 11.5, hemoglobin 9.7, platelets 353. Electrolytes show CO2 content 31, BUN 34, creatinine 1.2. Glucose 140. ASSESSMENT: 1. Blood sugars under adequate control. 2. Coronary artery disease, status post coronary artery bypass grafting. 3. Anemia secondary to acute blood loss. 4. Intermittent atrial flutter/fibrillation. PLAN: Continue present medical regimen. Patient's condition was discussed with the patient. Reviewed with consultant dietitian regarding triple anticoagulation. The patient is on Eliquis, Plavix and aspirin. Plan would be to discontinue the Plavix, continue aspirin and Eliquis if that is okay with the surgeons. Meanwhile, continue present treatment. Prognosis guarded. Patient is planned for transfer to rehab facility. MMODL / IJN: [id number] /
[2018-01-19 02:02] LABS: Glucose,Whole Blood 233 mg/dL (75-99)
[2018-01-19 05:53] LABS: Basophils % (A) 0 %; Eosinophils # (A) 0.5 k/uL (0-0.7); Eosinophils % (A) 6 %; HCT 28.5 % (39.0-53.0); HGB 8.8 gm/dL (13.0-17.5); Hypochromasia Slight; Lymphocytes # (A) 0.8 k/uL (1.0-4.8); Lymphocytes % (A) 9 %; MCH 28.5 pg (25.0-35.0); MCHC 30.8 g/dL (31.0-37.0); MCV 92.6 fL (80.0-100.0); Monocytes # (A) 0.6 k/uL (0-1.0); Monocytes % (A) 6 %; Neutrophils # (A) 7.2 k/uL (1.3-7.7); Neutrophils % (A) 78 %; Platelet Count 326 k/uL (150-450); RBC 3.08 m/uL (4.30-5.90); RDW 13.3 % (11.5-15.5); WBC 9.3 k/uL (3.8-10.6)
[2018-01-19 06:09] LABS: Albumin 2.9 g/dL (3.5-5.0); Calcium 8.5 mg/dL (8.4-10.2); Potassium 4.4 mmol/L (3.5-5.1); Total Bilirubin 0.8 mg/dL (0.2-1.3); Total Protein 5.3 g/dL (6.3-8.2)
[2018-01-19] MEDS: INSULIN ASPART 100 UNIT/ML 1 ML 10 ML VIAL SQ SCH ×3 (06:23→11:45)
[2018-01-19] MEDS: PANTOPRAZOLE 40 MG TABLET PO SCH (06:25)
[2018-01-19] MEDS: METOPROLOL TARTRATE 12.5 MG TAB PO SCH (06:25)
[2018-01-19] MEDS: INSULN ASP PRT/INSULIN ASPART 100 UNIT/ML 10 ML VIAL SQ SCH (06:54)
[2018-01-19] MEDS: IPRATROPIUM-ALBUTEROL 3 ML NEB INHALATION SCH ×2 (08:20→12:58)
--- NOTE | 2018-01-19 09:45 | XR ---
EXAMINATION TYPE: XR chest 2V DATE OF EXAM: 01/19/2018 COMPARISON: 01/18/2018 TECHNIQUE: PA and lateral views submitted. HISTORY: Post cardiac surgery FINDINGS: Bilateral consolidation and left pleural effusion is stable. Postsurgical changes and chronic rib cag e deformity noted. Cardiomegaly stable. Hypertrophic and degenerative change of the spine. IMPRESSION: 1. Bilateral infiltrate and small effusion stable
[2018-01-19] MEDS: LOSARTAN 25 MG TAB PO SCH (09:56)
[2018-01-19] MEDS: APIXABAN 5 MG TAB PO SCH (09:56)
[2018-01-19] MEDS: TAMSULOSIN 0.4 MG CAP.ER.24H PO SCH (09:57)
[2018-01-19] MEDS: ATORVASTATIN 40 MG TAB PO SCH (09:57)
[2018-01-19] MEDS: AMIODARONE 200 MG TAB PO SCH (09:57)
[2018-01-19] MEDS: ASPIRIN 81 MG PO SCH (09:57)
[2018-01-19 10:53] VITALS: RESP 16; TEMP 97.3
--- NOTE | 2018-01-19 11:17 | P.PN ---
Subjective Progress Note Date: 01/19/18 Principal diagnosis: Multivessel coronary artery disease, status post three-vessel CABG, postop day 1 Mr. Friedman is a 72-year-old white male patient of Dr. Barr with past medical history of coronary artery disease with previous myocardial infarction and stenting, insulin-dependent diabetes mellitus, hypertension, hyperlipidemia, chronic congestive heart failure with systolic dysfunction, history of CVA/TIA, lifetime nonsmoker, who we are seeing in consultation today for pulmonary/ critical care management, in the intensive care unit, post 3 vessel coronary artery bypass grafting, RODRIGUES to LAD, SVG to the PDA, and circumflex, and left atrial appendage exclusion with Atriclip, and intraoperative CAYLA. Patient was having symptoms of atypical angina, on the right side of his chest, radiating down his right arm, he underwent heart catheterization on 12/06/2017 which demonstrated left main coronary artery with moderate 20% diffuse disease, total occlusion of the left anterior descending coronary artery with in-stent stenosis , circumflex artery with 70-80% narrowing and mid RCA with 60% stenosis. LV gram showed an ejection fraction of 35-40%, with hypokinesia of the anteroapical wall. 2-D echocardiogram showed moderately impaired systolic function with an ejection fraction of 35-40%. Patient was recommended for surgical revascularization. Preop bedside spirometry revealed FEV1 of 2.0 L, or 62% of predicted, FVC of 2.5 L or 57% of predicted, and patient has a moderate amount of restriction. Patient is currently sedated on mechanical ventilation, initial vent settings were SIMV with a rate of 12, tidal 5 of 550, FiO2 100%, and PEEP of 8. Blood gas showed a O2 of 71, pCO2 57, pH of 7.29 on the above mentioned settings, and settings were changed to assist control mode with a rate of 20, tidal volume of 500, FiO2 100% and PEEP of 10, repeat blood gases showed pO2 of 60, pCO2 56, and pH of 7.29, subsequently was a rate increased to 24, and PEEP increased to 13. Maintenance IV is LR at a rate of 50 , nitroglycerin drip at 5 mics per minute, Primacor at 0.3 mcg/kg/min, and insulin drip at 5 u/hr. Cardiac index and output is 9.0/3.9 respectively, patient's intrinsic rhythm is sinus bradycardia with a rate of 65, he is being paced via epicardial AV wires, at the mode of DDD, with a rate of 70. Blood pressure is 121/51, PA pressures is 37/21. He has a mediastinal and left pleural chest tube, and there has been small serosanguineous amount of output in the chest tube collection chamber. Postop hemoglobin is 10.8, WBC is 11.9, platelet count is 144, INR is 1.3, electrolytes and renal profile are within normal limits. Patient is hemodynamically stable, nonoliguric. On 01/10/2018 patient seen again in follow-up in the intensive care unit. Sedated on mechanical ventilation, with vent settings are assist-control mode with a rate of 24, tidal vitamin 500, FiO2 of 65, and PEEP of 5, morning blood gases showed pO2 of 63, pCO2 40, and pH of 7.41. Today's chest x-ray has been reviewed by Dr. Arreola, and showed bilateral consolidation and pleural effusions. Patient was given a sedation holiday, he is following all commands, he was given a spontaneous breathing trial, with pressure support of 5, and CPAP of 5, with FiO2 of 65%, and weaning parameters were completed, and showed tidal vitamin of 380, vital Of 1.2, minute ventilation of 7.9 L, respiratory rate of 22, NIF is -24, RSBI is 52, and these are satisfactory blood gases. Cardiothoracic surgery has ordered a dose of IV Lasix 40 mg. Maintenance IV fluids is LR at a rate of 50 ML per hour, Clevidipine at 10 mg per hour, propofol is currently off, insulin is at 5.5 units per hour, and nitroglycerin is at 5 mcg/min. PA pressures 39/16, CVP is 11, cardiac output and index are 7.1 and 3.1 respectively. Patient was successfully extubated at 0845 to 10 L per high flow nasal cannula, the patient is able to achieve 1000 mL on the incentive spirometry. Patient's current rhythm is sinus rhythm with a rate of 62 BPM, and his current pacemaker settings are backup rate of AAI at a rate of 40 BPM. Midsternal incision is clean dry and intact, stable, mediastinal and left pleural chest tubes are intact, they are connected via Y-connection, and 24 -hour output is 329 mL of serosanguineous drainage. Today's labs were reviewed , WBC is 13.3, hemoglobin is 11.7, INR is 1.1, electrolytes are within normal limits, BUN is 22, creatinine is 1.2. Patient is producing urine it is ranging from 40-75 ML per hour. On 01/16/2018 patient is seen again in follow-up in the intensive care unit. He is a selective overflow, he denies any acute complaints, denies any worsening dyspnea, currently on liters per nasal cannula, and his pulse ox is at 94%, patient remains in sinus rhythm and the rate of 67 BPM, afebrile. Today 's chest x-ray has been reviewed, and show stable bilateral consolidation and pleural effusion. His labs have been reviewed, WBC is 8.8, hemoglobin is 9.4, CO2 31, BUN is 29, creatinine is 1.1. Patient is on anticoagulation form of Eliquis, he is on oral amiodarone, he is being diuresed, remains on IV Lasix at 40 mg twice daily, he is in -1790 mL fluid balance over the last 24 hours. Still has some pedal edema, but that seems to be improving. Lung sounds are positive for diminished breath sounds at the bases, with a few scattered rales. Tolerating ambulation. He had a bowel movement this morning On 01/17/2018 patient seen again in follow-up on [facility] care unit. He sitting up at the bedside eating lunch, denies any acute distress, senna spirometer effort is 1500 today, pulse ox on 5 L per nasal cannula is 93%. Abdomen is less distended, and is soft, patient had several bowel movements this morning, is verbalizing relief from constipation and abdominal distention. Chest x-ray has been reviewed, shows stable bilateral consolidation and pleural effusion. Patient continues on IV Lasix, he is in negative fluid balance, and his weight is coming down it is down 4.9 kg in the last 24 hours. Today's labs have been noted. BUN is 32, creatinine is 1.19, CO2 is 31, dressed electrolytes are normal. WBCs 12.9. Hemoglobin is 9.5. Patient has been tolerating ambulation. Lung sounds are positive for diminished breath sounds over left base. Patient remains in A. fib/flutter, with a controlled rate, he is on oral anticoagulation. On 01/18/2018 patient seen in follow-up. FiO2 is currently down to 3 L, and his pulse ox is 94%, no worsening dyspnea, vital signs are stable, patient is afebrile. Patient has been ambulating, tolerating activity well. Recent shower today. His weight is down to 114.7 kg from 116 kg in the last 24 hours. His chest x-ray today showed bilateral consolidation and pleural effusions, stable findings. His labs were noted, the PVCs 11.5, hemoglobin is 9.7, electrolytes and renal profile are relatively unremarkable. Remains in atrial fib/flutter, with a controlled rate. She denies any shortness of breath, he has a mild cough, no chest pain. On 01/19/2018 patient seen in follow-up on selective care unit. In no acute distress, denies any worsening dyspnea, he has been ambulating on portable oxygen, tolerating it well, currently FiO2 is at 4 L per nasal cannula, and his pulse ox is 95%, vital signs are stable, patient is afebrile. He is currently in sinus rhythm, his rate is controlled, today's chest x-ray has been reviewed, and shows bilateral infiltrates and small pleural effusions, slightly improved. Lung sounds reveal a few crackles at the bases. His labs were noted, WBC is 9.3, hemoglobin is 8.8, sodium is 138, potassium is 4.4, CO2 31, BUN of 37, creatinine is 1.3. Patient is compliant with his incentive spirometer, achieving 1500 on the today. His surgical incisions are clean dry and intact, chest tubes and AV wires had been discontinued. Patient is tolerating oral diet , anticipate transfer to [facility] inpatient rehab today. Objective - Vital Signs Vital signs: Vital Signs Temp 97.3 F L 01/19/18 08:00 Pulse 70 01/19/18 08:32 Resp 16 01/19/18 08:00 BP 110/52 01/19/18 08:00 Pulse Ox 95 01/19/18 08:00 Intake & Output 01/18/18 01/19/18 01/19/18 18:59 06:59 18:59 Intake Total 837 Output Total 300 50 0 Balance 537 -50 0 Weight 114.9 kg Intake: Oral 837 Output: Chest Tube Drainage 50 0 Left Pleural 50 0 Urine 300 Other: Voiding Method Urinal Urinal # Voids 1 1 # Bowel Movements 1 ABP, PAP, CO, CI - Last Documented Arterial Blood Pressure 94/40 Pulmonary Artery Pressure 39/15 Cardiac Output 7.1 Cardiac Index 2.5 - Exam - Constitutional General appearance: no acute distress, obese. Awake, alert, currently on 4 L per high flow nasal cannula. - EENT Eyes: PERRLA, dentition normal ENT: NA/AT, normal oropharynx - Neck Neck: no lymphadenopathy Carotids: bilateral: upstroke normal Thyroid: bilateral: normal size - Respiratory Respiratory: bilateral: CTA, diminished breath sounds at the left base, a few scattered crackles at the bases - Cardiovascular Midsternal incision is clean dry and intact, stable, covered with surgical dressing, mediastinal and left pleural chest tube insertion sites are clean dry and intact Rhythm: regular Heart sounds: normal: S1, S2 ankle Peripheral Edema: absent: None foot Peripheral Edema: absent: None leg Peripheral Edema: absent: None - Gastrointestinal General gastrointestinal: no organomegaly, soft, no tenderness - Integumentary Midsternal incision is clean dry and intact, stable, covered with surgical dressing, mediastinal and left pleural chest tube insertion sites are clean dry and intact, bilateral lower extremities with ESTELA hose left lower leg incisions clean dry and intact Integumentary: normal turgor - Neurologic Awake and alert, no focal neurological deficits, responding appropriately. - Labs CBC & Chem 7: 01/19/18 05:22 01/19/18 05:22 Labs: Abnormal Lab Results - Last 24 Hours (Table) 01/18/18 01/18/18 01/18/18 Range/Units 11:31 16:35 20:59 RBC (4.30-5.90) m/uL Hgb (13.0-17.5) gm/dL Hct (39.0-53.0) % MCHC (31.0-37.0) g/dL Lymphocytes # (1.0-4.8) k/uL Carbon Dioxide (22-30) mmol/L BUN (9-20) mg/dL Creatinine (0.66-1.25) mg/dL Glucose (74-99) mg/dL POC Glucose (mg/dL) 371 H 179 H 108 H (75-99) mg/dL Total Protein (6.3-8.2) g/dL Albumin (3.5-5.0) g/dL 01/19/18 01/19/18 01/19/18 Range/Units 01:59 05:22 05:22 RBC 3.08 L (4.30-5.90) m/uL Hgb 8.8 L (13.0-17.5) gm/dL Hct 28.5 L (39.0-53.0) % MCHC 30.8 L (31.0-37.0) g/dL Lymphocytes # 0.8 L (1.0-4.8) k/uL Carbon Dioxide 31 H (22-30) mmol/L BUN 37 H (9-20) mg/dL Creatinine 1.30 H (0.66-1.25) mg/dL Glucose 175 H (74-99) mg/dL POC Glucose (mg/dL) 233 H (75-99) mg/dL Total Protein 5.3 L (6.3-8.2) g/dL Albumin 2.9 L (3.5-5.0) g/dL Assessment and Plan Plan: Assessment: #1. Symptomatic multivessel coronary artery disease, status post three-vessel coronary artery bypass grafting, RODRIGUES to LAD, SVG to the PDA and circumflex, with intraoperative CAYLA and exclusion of left atrial appendage with #32 Atriclip , postop day 10 #2. History of coronary artery disease, with 3 previous myocardial infarctions , and previous stenting #3. Lifetime nonsmoker #4. Diabetes mellitus type 2 #5. Hypertension, hyperlipidemia #6. Ischemic cardiomyopathy, with reduced left ventricular systolic function with EF of 35-40% #7. History of CVA/TIA #8. Benign prostatic hypertrophy #9. Anxiety/depression Plan: No acute complaints, hemodynamically stable, drinking incentive spirometry, ambulation. Continue events overnight, chest x-ray has been reviewed stable findings of small bilateral pleural effusions. He continues on oral diuretics. Denies any worsening dyspnea. From pulmonary standpoint patient is stable for discharge to [facility] today. I performed a history & physical examination of the patient and discussed their management with my nurse practitioner, Jazmin Day. I reviewed the nurse practitioner's note and agree with the documented findings and plan of care. Lung sounds are positive for diminished breath sounds at the left base. The findings and the impression was discussed with the patient. I attest to the documentation by the nurse practitioner. Time with Patient: Less than 30
[2018-01-19] MEDS: FUROSEMIDE 10 MG/ML 2 ML VIAL IV SCH (11:36)
[2018-01-19 11:53] LABS: Glucose,Whole Blood 145 mg/dL (75-99)
[2018-01-19 13:06] VITALS: BP 116/52
[2018-01-19 13:11] VITALS: PULSE 70
--- NOTE | 2018-01-19 14:11 | P.DS ---
Providers Date of admission: 01/09/18 05:37 Expected date of discharge: 01/19/18 Attending physician: Shlomo Orosco Consults: 01/09/18 13:03 Consult Physician Routine Consulting Provider: Giovanny Cuba Consult Reason/Comments: Crankshaft Balancer Consult: post cardiac surgery Do you want consulting provider notified?: Yes Consult Physician Routine Consulting Provider: Yo Barr Consult Reason/Comments: medical management Do you want consulting provider notified?: Yes Consult Physician Routine Consulting Provider: Elaine Silverman Consult Reason/Comments: Ibm Mainframe Developer Consult: post cardiac surgery Do you want consulting provider notified?: Yes 01/14/18 07:33 Consult Physician Routine Consulting Provider: Jim Bai Consult Reason/Comments: inpatient rehab Do you want consulting provider notified?: Yes Primary care physician: Yo Barr - Discharge Diagnosis(es) (1) Coronary artery disease Current Visit: Yes Status: Chronic (2) History of heart artery stent Current Visit: Yes Status: Chronic (3) Hyperlipidemia Current Visit: Yes Status: Chronic (4) Hypertension Current Visit: Yes Status: Chronic (5) Insulin dependent diabetes mellitus Current Visit: Yes Status: Chronic (6) Obesity Current Visit: Yes Status: Chronic (7) Previous myocardial infarction older than 8 weeks Current Visit: No Status: Resolved Hospital Course: FINAL DIAGNOSIS: 1. Unstable angina, triple-vessel coronary artery disease 2. Previous myocardial infarction with stent placement 3. Insulin-dependent diabetes mellitus with preoperative hemoglobin A1c 6.8% 4. Hypertension 5. Hyperlipidemia 6. Mild COPD with preoperative FEV1 62% of predicted 7. History of depression 8. Chronic systolic heart failure with ejection fraction 35-40% 9. Obesity 10. Postoperative paroxysmal atrial fibrillation PRINCIPAL PROCEDURE: 1. Coronary artery bypass grafting 3 with left internal mammary to the left anterior descending artery, reverse greater saphenous vein graft off the aorta to the circumflex artery and the posterior descending artery 2. Left greater saphenous vein endoscopic harvesting 3. Clip ligation of the left atrial appendage with a 35 mm Atriclip 4. Intraoperative transesophageal echocardiogram HISTORY OF PRESENT ILLNESS: This is a 72-year-old obese patient of Dr. Yo Skaggs. He presented to Dr. EVA Silverman's office with complaints of atypical angina with pain in the right side of his chest radiating down his right arm. Because of his symptoms and his previous history, a heart catheterization was recommended and completed on 12/14/2017 demonstrating left main coronary artery with moderate 20% diffuse disease, total occlusion of the left anterior descending coronary artery with re-in-stent stenosis, a groove branch of the circumflex artery with 70-80% narrowing and mid RCA with 60% stenosis. There were collaterals from the RCA to the LAD. LV gram performed at the time demonstrated an ejection fraction of 35-40% with anterior apical hypokinesia. In addition, a transthoracic echocardiogram was completed demonstrating moderately impaired systolic function with an ejection fraction of 35-40%, with anterior apical LV wall motion hypokinesis, and apical septal LV wall motion hypokinesis as well as trace mitral regurgitation. Due to the patient's symptoms and anatomy the patient was referred to Dr. Orosco from cardiothoracic surgery. He was recommended to undergo coronary artery bypass grafting surgery. All risks and benefits were explained in detail to the patient and his family, all questions were answered, and consent was obtained to proceed with surgery. HOSPITAL COURSE: The patient was brought to the hospital on 01/09/2018, taken to the preoperative area, prepared in the usual fashion, and subsequently taken to the operating room where Dr. Orosco performed coronary artery bypass grafting 3 with left internal mammary to the left anterior descending artery, reverse greater saphenous vein graft off the aorta to the circumflex artery and the posterior descending artery, left greater saphenous vein endoscopic harvesting, clip ligation of the left atrial appendage with a 35 mm Atriclip, and intraoperative transesophageal echocardiogram. Upon completion of surgery the patient was transferred to the cardiovascular intensive care unit where he was recovered, monitored hemodynamically, and where he progressed to cardiac rehabilitation phase 1. He was extubated, all lines, tubes, and drips were discontinued when appropriate, and he was transferred to [address] [place] [address] for further monitoring and rehabilitation. On postop day 3 he developed substernal chest pain with ST elevation in the inferior leads on his EKG. He was taken to the cardiac catheterization lab where all of his grafts were found to be widely patent with good flow. He was then taken back to the intensive care unit for closer monitoring, he developed postoperative paroxysmal atrial fibrillation with a controlled rate, and he was started on anticoagulation along with amiodarone. Once felt to be stable he was transferred back to [address] [place] [address]. His oxygen was titrated down, he continued to work with physical and occupational therapy, he was tolerating oral diet, his pain was controlled, and he was ready to be discharged to [facility] inpatient rehab on postoperative day #10]. He received written and verbal instruction regarding his medications, activity restrictions, signs and symptoms requiring physician notification, and follow-up appointments. COMPLICATIONS: The patient experienced postoperative atrial fibrillation which was treated accordingly, as well as chest pain with EKG changes with subsequent trip to the [employer], no intervention completed. Patient Condition at Discharge: Stable Plan - Discharge Summary Discharge Rx Participant: Yes New Discharge Prescriptions: New Furosemide [Lasix] 20 mg PO BID@0900,1600 tab Insuln Asp Prt/Insulin Aspart [NovoLOG MIX 70-30 VIAL] 30 unit SQ AC-SUPPER vial Ipratropium-Albuterol Nebulize [Duoneb 0.5 mg-3 mg/3 ml Soln] 3 ml INHALATION RT-Q2H PRN ampul.neb PRN Reason: Shortness Of Breath Or Wheezing Amiodarone [Cordarone] 200 mg PO BID tab Apixaban [Eliquis] 5 mg PO BID tab Artificial Tears-Hypromellose [Artificial Tear Drops] 1 drops BOTH EYES QID PRN bottle PRN Reason: Dry Eye(S) Atorvastatin [Lipitor] 40 mg PO DAILY tab guaiFENesin [Mucinex] 600 mg PO Q12HR PRN tablet.er PRN Reason: Cough HYDROcodone/APAP 5-325MG [[place] 5-325] 1 each PO Q4HR PRN tab PRN Reason: Moderate Pain Insulin Aspart [NovoLOG (formulary)] 0 unit SQ [id number] vial Insuln Asp Prt/Insulin Aspart [NovoLOG MIX 70-30 VIAL] 48 unit SQ AC-BRKFST vial Ipratropium-Albuterol Nebulize [Duoneb 0.5 mg-3 mg/3 ml Soln] 3 ml INHALATION RT-QID ampul.neb Magnesium Hydroxide [Milk of Magnesia Concentrate] 2,400 mg PO BID PRN ml PRN Reason: Constipation Metoprolol Tartrate [Lopressor] 12.5 mg PO Q12H tab Pantoprazole [Protonix] 40 mg PO AC-BRKFST tablet. Sennosides-Docusate Sodium [Senokot-S] 2 each PO HS tab Tamsulosin [Flomax] 0.4 mg PO BID cap.er.24h Continue Multivitamins, Thera [Multivitamin (formulary)] 1 tab PO HS Citalopram Hydrobromide [CeleXA] 40 mg PO HS Aspirin EC [Ecotrin Low Dose] 81 mg PO HS Losartan [Cozaar] 50 mg PO QAM Polyethylene Glycol 3350 [Miralax] 17 gm PO DAILY PRN PRN Reason: Constipation Changed ALPRAZolam [Xanax] 0.25 mg PO BID PRN #60 PRN Reason: Anxiety Discontinued Spironolactone [Aldactone] 25 mg PO QAM Simvastatin [Zocor] 40 mg PO QAM metFORMIN HCL [Glucophage] 1,000 mg PO BID guaiFENesin [Mucinex] 600 mg PO BID Insulin NPH Hum/Reg Insulin Hm [NovoLIN 70-30 100 UNIT/ML VIAL] 70 unit SQ QAM Insulin NPH Hum/Reg Insulin Hm [NovoLIN 70-30 100 UNIT/ML VIAL] 64 unit SQ HS Naproxen [Naprosyn] 250 mg PO BID Tamsulosin [Flomax] 0.4 mg PO BID Glucosamine-Chondr 500-400Mg 1 tab PO Q12HR Clopidogrel [Plavix] 75 mg PO DAILY Discharge Medication List Aspirin EC [Ecotrin Low Dose] 81 mg PO HS 03/21/14 [History] Citalopram Hydrobromide [CeleXA] 40 mg PO HS 03/21/14 [History] Losartan [Cozaar] 50 mg PO QAM 03/21/14 [History] Multivitamins, Thera [Multivitamin (formulary)] 1 tab PO HS 03/21/14 [History] Polyethylene Glycol 3350 [Miralax] 17 gm PO DAILY PRN 01/08/18 [History] ALPRAZolam [Xanax] 0.25 mg PO BID PRN #60 01/19/18 [Rx] Amiodarone [Cordarone] 200 mg PO BID tab 01/19/18 [Rx] Apixaban [Eliquis] 5 mg PO BID tab 01/19/18 [Rx] Artificial Tears-Hypromellose [Artificial Tear Drops] 1 drops BOTH EYES QID PRN bottle 01/19/18 [Rx] Atorvastatin [Lipitor] 40 mg PO DAILY tab 01/19/18 [Rx] Furosemide [Lasix] 20 mg PO BID@0900,1600 tab 01/19/18 [Rx] HYDROcodone/APAP 5-325MG [[place] 5-325] 1 each PO Q4HR PRN tab 01/19/18 [Rx] Insulin Aspart [NovoLOG (formulary)] 0 unit SQ [id number] vial 01/19/18 [Rx] Insuln Asp Prt/Insulin Aspart [NovoLOG MIX 70-30 VIAL] 30 unit SQ AC-SUPPER vial 01/19/18 [Rx] Insuln Asp Prt/Insulin Aspart [NovoLOG MIX 70-30 VIAL] 48 unit SQ AC-BRKFST vial 01/19/18 [Rx] Ipratropium-Albuterol Nebulize [Duoneb 0.5 mg-3 mg/3 ml Soln] 3 ml INHALATION RT -Q2H PRN ampul.neb 01/19/18 [Rx] Ipratropium-Albuterol Nebulize [Duoneb 0.5 mg-3 mg/3 ml Soln] 3 ml INHALATION RT -QID ampul.neb 01/19/18 [Rx] Magnesium Hydroxide [Milk of Magnesia Concentrate] 2,400 mg PO BID PRN ml 01/19 [Rx] Metoprolol Tartrate [Lopressor] 12.5 mg PO Q12H tab 01/19/18 [Rx] Pantoprazole [Protonix] 40 mg PO AC-BRKFST tablet.dr 01/19/18 [Rx] Sennosides-Docusate Sodium [Senokot-S] 2 each PO HS tab 01/19/18 [Rx] Tamsulosin [Flomax] 0.4 mg PO BID cap.er.24h 01/19/18 [Rx] guaiFENesin [Mucinex] 600 mg PO Q12HR PRN tablet.er 01/19/18 [Rx] Follow up Appointment(s)/Referral(s): Yo Barr MD [Primary Care Provider] - 1 Week (To follow at [facility]. Please make appointment upon discharge from [facility].) Elaine Silverman MD [STAFF PHYSICIAN] - 1 Week (To follow patient at [facility]. Please make appointment upon discharge from [facility].) Giovanny Cuba DO [Doctor of Osteopathic Medicine] - 1 Week (To follow at [facility]. Please make appointment upon discharge from [facility].) Shlomo Orosco MD [STAFF PHYSICIAN] - 02/06/18 2:00 pm Ambulatory/Diagnostic Orders: Complete Blood Count w/diff [LAB.AMB] Time Frame: 3 Days, Location: None Selected Comprehensive Metabolic Panel [LAB.AMB] Time Frame: 3 Days, Location: None Selected Patient Instructions/Handouts: Heart Healthy Diet (DC), Cholesterol and Your Health (GEN), Sternal Precautions (GEN), Coronary Artery Bypass Graft (DC) Activity/Diet/Wound Care/Special Instructions: DISCHARGE INSTRUCTIONS: CONSULTS AT [facility]; DR. BARR FOR MEDICAL MANAGEMENT DR. EVA SILVERMAN FOR CARDIOLOGY DR. CUBA FOR PULMONOLOGY 1. No driving for 4 weeks, or until physician gives their ok. 2. The patient should sleep in their own bed, no medical bed needed. 3. Stairs are not an issue. If the bedroom is upstairs, it is advised that the patient go up at night and down in the morning for the first week. Go slowly, using handrail and take 1 step at a time. 4. ESTELA hose are to be worn for 30 days or until physician discontinues. 5. Heart hugger is to be worn 100% of the time until physician discontinues.( except when showering) 6. No lifting, pushing, or pulling more than 10 pounds for 12 weeks. The physician will advise of any restriction changes. 7. The patient is expected to continue the prescribed walking program. 8. Continue pain control per as needed orders. 9. Continue with incentive spirometry and splinting/heart hugger until otherwise directed by the physician. 10. Must shower daily using liquid antibacterial soap and a separate white washcloth for each individual incision. 11. Routine sternal incision care. No powders, lotions, ointments on incisions. 12. Please call surgeon/OCTAVE BOARD RACKER for temp greater than 101 F or purulent drainage from incisions. 13. Narcotic medications were discussed with the patient, including the potential for misuse, addiction, and abuse. Opiod Start Talking form was reviewed with the patient. 14. All prescriptions given by surgeon for 30 days. Refills need to be filled through geophysical e logger/primary care physician. 15. A Red armband has been placed on the patient. It should be worn for 30 days post surgery and will be removed by the cardiac surgeons. If an ER visit is necessary, please make sure the number on the Red armband is called. REHAB/HOME HEALTH SERVICES TO PROVIDE: RN SKILLED HOME CARE SERVICES FOR POST-OP SURGICAL PATIENTS WITH THE FOLLOWING: Coronary Artery Bypass Surgery (CABG), Mitral Valve Replacement/ Repair ( MVR), Aortic Valve Replacement/Repair (AVR) RN TO CONTINUE EDUCATION FROM ``ROAD TO A HEALTH HEART PATIENT EDUCATION MANUAL (GIVEN TO PATIENT IN THE HOSPITAL) MEDICATION RECONCILIATION WITH EDUCATION NEEDED ON FIRST HOME VISIT EMPHASIZE IMPORTANCE OF WEARING BREAST SUPPORT/HEART HUGGER ENCOURAGE USE OF INCENTIVE SPIROMETER 10 X EVERY HOUR WHILE AWAKE ENCOURAGE UTILIZATION OF LOWER EXTREMITY COMPRESSION STOCKINGS/ESTELA HOSE and ELEVATE LEGS ABOVE LEVEL OF HEART WHILE AT REST. ENCOURAGE AMBULATION 3-5x/day INCREASING TOLERATES, WHILE AVOID EXTREMES IN TEMPERATURE FREQUENCY: RN TO OPEN THE PATIENT WITHIN 24 HOURS OF DISCHARGE FROM THE HOSPITAL WITH TELEHEALTH INSTALLED AT [facility] [place], RN TO VISIT 2-3 X A WEEK FOR 4 WEEKS ESTABLISHED BY PATIENT NEEDS. LABORATORY: CBC, CMP TO BE DRAWN ON THE THIRD DAY AFTER DISCHARGE, Monday01/22/18 (RAN STAT) FAX RESULTS TO [phone]. TELEHEALTH PARAMETERS: WEIGHT: NOTIFY MD OF WEIGHT GAIN OF 2 LBS IN 24 HOURS OR 5 LBS IN ONE WEEK HR: NOTIFY MD OF HR <55 BPM OR HR>100 BPM BP: NOTIFY MD IF BP <90/55 OR BP>140/100 O2 SAT: NOTIFY MD IF PO2<93% ON ROOM AIR SEND TELEHEALTH REPORT TO WATER INSPECTOR AND CARDIOVASCULAR SURGEON THE FIRST WEEK OF CARE AND THEN BI-WEEKLY. PLEASE ADDITIONALLY COMMUNICATE ANY ABNORMALS AND NEW FINDINGS TO THE SURGEONS OFFICE. Discharge Disposition: DC/TRNS INTERMEDIATE CARE FAC
--- NOTE | 2018-01-19 14:52 | P.PN ---
Subjective Progress Note Date: 01/19/18 This is 72-year-old gentleman with a known history of prior coronary artery disease, diabetes, hypertension, hyperlipidemia, prior CVA, who is status post three-vessel coronary artery bypass grafting surgery. Patient was seen and examined today, sitting up in the bedside chair, hemodynamically stable. Continues to be in atrial fibrillation with controlled ventricular response. White blood cell count 12.9, hemoglobin 9.5, platelet count 351. Sodium 140, potassium 4.6, BUN 32, creatinine 1.1. Magnesium 2.5. Reaching 1500 on his incentive spirometry. 01/18/2018 Patient seen and examined this morning, doing well overall. Reaching 1500 on his incentive spirometry. Blood pressure 115/50, heart rate in the 70s. In normal sinus rhythm. White blood cell count 11.5, hemoglobin 9.7, platelet count 353. Sodium 139, potassium 4.2, BUN 34, creatinine 1.2. Magnesium 2.4. 01/19/2018 Patient seen and examined this morning, currently in normal sinus rhythm. Feeling significantly better overall. Anticipating transfer to inpatient rehab today. Objective - Vital Signs Vital signs: Vital Signs Temp 97.3 F L 01/19/18 12:00 Pulse 70 01/19/18 13:11 Resp 16 01/19/18 12:00 BP 116/52 01/19/18 12:00 Pulse Ox 95 01/19/18 12:00 Intake & Output 01/18/18 01/19/18 01/19/18 18:59 06:59 18:59 Intake Total 837 240 Output Total 300 50 0 Balance 537 -50 240 Weight 114.9 kg Intake: Oral 837 240 Output: Chest Tube Drainage 50 0 Left Pleural 50 0 Urine 300 Other: Voiding Method Urinal Urinal # Voids 1 1 # Bowel Movements 1 ABP, PAP, CO, CI - Last Documented Arterial Blood Pressure 94/40 Pulmonary Artery Pressure 39/15 Cardiac Output 7.1 Cardiac Index 2.5 - Exam PHYSICAL EXAMINATION: GENERAL: 72-year-old gentleman in no acute distress at this time of my examination HEENT: Head is atraumatic, normocephalic. Pupils equal, round. Sclera anicteric. Conjunctiva are clear. Mucous membranes of the mouth are moist. Neck is supple. There is no elevated jugular venous pressure.] bruit is heard. HEART EXAMINATION: Heart S1 and S2 normal CHEST EXAMINATION: Lungs reveal diminished air entry to bilateral bases. ABDOMEN: Soft, nontender. Bowel sounds are heard. No organomegaly noted. EXTREMITIES: 2+ peripheral pulses with trace evidence of peripheral edema and no calf tenderness noted. Venodyne's in place. NEUROLOGIC patient is awake, alert and oriented ?-3. . - Labs CBC & Chem 7: 01/19/18 05:22 01/19/18 05:22 Labs: Abnormal Lab Results - Last 24 Hours (Table) 01/18/18 01/18/18 01/19/18 Range/Units 16:35 20:59 01:59 RBC (4.30-5.90) m/uL Hgb (13.0-17.5) gm/dL Hct (39.0-53.0) % MCHC (31.0-37.0) g/dL Lymphocytes # (1.0-4.8) k/uL Carbon Dioxide (22-30) mmol/L BUN (9-20) mg/dL Creatinine (0.66-1.25) mg/dL Glucose (74-99) mg/dL POC Glucose (mg/dL) 179 H 108 H 233 H (75-99) mg/dL Total Protein (6.3-8.2) g/dL Albumin (3.5-5.0) g/dL 01/19/18 01/19/18 01/19/18 Range/Units 05:22 05:22 11:39 RBC 3.08 L (4.30-5.90) m/uL Hgb 8.8 L (13.0-17.5) gm/dL Hct 28.5 L (39.0-53.0) % MCHC 30.8 L (31.0-37.0) g/dL Lymphocytes # 0.8 L (1.0-4.8) k/uL Carbon Dioxide 31 H (22-30) mmol/L BUN 37 H (9-20) mg/dL Creatinine 1.30 H (0.66-1.25) mg/dL Glucose 175 H (74-99) mg/dL POC Glucose (mg/dL) 145 H (75-99) mg/dL Total Protein 5.3 L (6.3-8.2) g/dL Albumin 2.9 L (3.5-5.0) g/dL Assessment and Plan Plan: Assessment and plan #1 status post coronary artery bypass grafting surgery #2 paroxysmal atrial fibrillation #3 diabetes #4 hypertension #5 ischemic cardiomyopathy #6 prior CVA #7 anxiety and depression Plan From cardiology's perspective, we will continue the patient on his current medications. Anticipating transfer to inpatient rehab today. Once the patient is discharged home a follow-up appointment will be made with Dr. Bennie Pritchett in the office. DNP note has been reviewed, I agree with a documented findings and plan of care. Patient was seen and examined.
[2018-01-19] MEDS ORDERED: FUROSEMIDE 20 MG TAB PO SCH (16:00)
[2018-01-19] MEDS ORDERED: INSULN ASP PRT/INSULIN ASPART 100 UNIT/ML 10 ML VIAL SQ SCH (17:30)
--- NOTE | 2018-01-19 23:41 | PN ---
PROGRESS NOTE ATTENDING PHYSICIAN: Dr. Orosco. CONSULTING PHYSICIAN: Dr. Alfonso Barr. CHIEF COMPLAINT: Re-evaluation. HISTORY OF PRESENT ILLNESS: This gentleman, 72 years of age, is status post CABG. He is doing relatively well today. REVIEW OF SYSTEMS: NEURO: Denies any headaches, dizziness. PSYCH: No anxiety. CARDIAC: No chest pain, angina, palpitation. RESPIRATORY: No shortness of breath, cough. GI: No nausea, vomiting, abdominal pain, diarrhea. : No symptoms of dysuria, hematuria. EXTREMITIES: Some pain. CONSTITUTIONAL: No fever, chills. PHYSICAL EXAMINATION: Pleasant gentleman in no distress. Vital signs reveal temperature 97.3, pulse 69, respirations 16, blood pressure 110/52. HEENT: Normocephalic. NECK: No JVD. CHEST: Clear to auscultation with decreased air flow at the bases, especially left base with some dullness. CARDIAC: Distant heart sounds S1, S2 with no gallops. Regular rhythm. ABDOMEN: Soft, protuberant. Bowel sounds active. EXTREMITIES: Trace edema. NEUROLOGICAL: Awake, alert, oriented with well-coordinated movements. LABORATORY ASSESSMENT: Hemoglobin 8.8. CO2 31, BUN 37, creatinine 1.3. Albumin 2.9. ASSESSMENT: 1. Anemia secondary to acute blood loss post surgery. 2. Diabetes mellitus, adequately controlled. 3. Status post coronary artery bypass graft. 4. History of hypertension. PLAN: The patient is stable. Continue present medical regimen. Patient's condition discussed with the patient. Prognosis is guarded. Patient is planned for transfer today to rehab. MMODL / IJN: [id number] /
== END 2018-01-19 16:16 | DRG 234 ==
LOC: 2ORMAIN 05:37 → 6ICU 12:57 → 6SEL 01-11 18:28 → 6ICU 01-12 08:45 → 6SEL 01-16 14:36
PROVIDERS: ADMIT Thoracic Surgery (Cardiothoracic Vascular Surgery); ATTEND Thoracic Surgery (Cardiothoracic Vascular Surgery)
PROC: 021109W Bypass Coronary Artery, Two Arteries from Aorta with Autologous Venous Tissue, Open Approach (ICD-10-PCS; 2018-01-09)
PROC: 06BP4ZZ Excision of Right Saphenous Vein, Percutaneous Endoscopic Approach (ICD-10-PCS; 2018-01-09)
PROC: 5A1221Z Performance of Cardiac Output, Continuous (ICD-10-PCS; 2018-01-09)
PROC: 02L70CK Occlusion of Left Atrial Appendage with Extraluminal Device, Open Approach (ICD-10-PCS; 2018-01-09)
PROC: B24BZZ4 Ultrasonography of Heart with Aorta, Transesophageal (ICD-10-PCS; 2018-01-09)
PROC: 02100Z9 Bypass Coronary Artery, One Artery from Left Internal Mammary, Open Approach (ICD-10-PCS; principal; 2018-01-09 08:00)
PROC: B2111ZZ Fluoroscopy of Multiple Coronary Arteries using Low Osmolar Contrast (ICD-10-PCS; 2018-01-12)
PROC: B2131ZZ Fluoroscopy of Multiple Coronary Artery Bypass Grafts using Low Osmolar Contrast (ICD-10-PCS; 2018-01-12)
DX: I25.110 Atherosclerotic heart disease of native coronary artery with unstable angina pectoris (principal); D62 Acute posthemorrhagic anemia; I31.9 Disease of pericardium, unspecified; I48.92 Unspecified atrial flutter; I50.22 Chronic systolic (congestive) heart failure; J98.11 Atelectasis; T82.855A Stenosis of coronary artery stent, initial encounter; J90 Pleural effusion, not elsewhere classified; N17.9 Acute kidney failure, unspecified; D69.6 Thrombocytopenia, unspecified; I11.0 Hypertensive heart disease with heart failure; E11.42 Type 2 diabetes mellitus with diabetic polyneuropathy; I25.82 Chronic total occlusion of coronary artery; J44.9 Chronic obstructive pulmonary disease, unspecified; I25.5 Ischemic cardiomyopathy; I48.0 Paroxysmal atrial fibrillation; R00.1 Bradycardia, unspecified; I34.0 Nonrheumatic mitral (valve) insufficiency; E66.9 Obesity, unspecified; E78.5 Hyperlipidemia, unspecified; F32.9 Major depressive disorder, single episode, unspecified; F41.9 Anxiety disorder, unspecified; I25.2 Old myocardial infarction; K59.00 Constipation, unspecified; N40.0 Benign prostatic hyperplasia without lower urinary tract symptoms; E78.00 Pure hypercholesterolemia, unspecified; Z79.02 Long term (current) use of antithrombotics/antiplatelets; Z79.82 Long term (current) use of aspirin; Z79.899 Other long term (current) drug therapy; Z79.84 Long term (current) use of oral hypoglycemic drugs; Z86.73 Personal history of transient ischemic attack (TIA), and cerebral infarction without residual deficits; Z68.36 Body mass index [BMI] 36.0-36.9, adult; Z80.9 Family history of malignant neoplasm, unspecified; Z83.3 Family history of diabetes mellitus
CPT/HCPCS: 71045; 71046; 80048; 80053; 82330; 82805; 83036; 83735; 84100; 84132; 84484; 85025; 85027; 85520; 85610; 85730; 86850; 86891; 86900; 86901; 86920; 93306; 93308; 93455; 94002; 94003; 94640; 94760

== ENCOUNTER 2018-02-05 21:03 | Emergency (ER) | payer MEDICARE, BC ==
[2018-02-05 21:12] VITALS: RESP 18; TEMP 97.7
[2018-02-05 21:12] LABS: Glucose,Whole Blood 199 mg/dL (75-99)
--- NOTE | 2018-02-05 21:52 | CT ---
EXAMINATION TYPE: CT brain wo con DATE OF EXAM: 02/05/2018 COMPARISON: 10/01/2011 HISTORY: fell tonight. large bump lt side of his head CT DLP: 1108.4 mGycm Automated exposure control for dose reduction was used. FINDINGS: There is some cerebral cortical atrophy. There is no mass effect nor midline shift. There is no sign of intracranial hemorrhage. The calvarium is intact. IMPRESSION: CEREBRAL ATROPHY. NO ACUTE INTRACRANIAL ABNORMALITY. NO CHANGE.
--- NOTE | 2018-02-05 21:54 | XR ---
EXAMINATION TYPE: XR Hip RT and AP Pelvis DATE OF EXAM: 02/05/2018 COMPARISON: NONE HISTORY: Fall. Right hip pain TECHNIQUE: 3 views FINDINGS: The pelvic ring is intact. Proximal femurs and hip joints are intact. Right hip joint space is fairly normal. Sacroiliac joints appear intact. IMPRESSION: Negative pelvis and right hip exam.
--- NOTE | 2018-02-05 22:01 | ED ---
General Adult HPI - General Chief complaint: Fall Stated complaint: Fall Time Seen by Provider: 02/05/18 21:35 Source: patient, EMS, RN notes reviewed Mode of arrival: EMS Limitations: no limitations - History of Present Illness Initial comments: Patient is a pleasant 72-year-old male presenting to the emergency department after a fall. Patient was getting out of the bathtub and sitting down on a chair when he slipped and fell. Patient mostly slipped and slid his head to the floor. Patient did strike the left side of his head. No loss of consciousness. Only mild discomfort. No confusion. No speech problems. No weakness. Patient does take Eliquis for A. fib and recent cardiac surgery less than 1 month ago. Patient also has some mild right hip discomfort. Patient has not attempted ambulation. - Related Data Home Medications Medication Instructions Recorded Confirmed Aspirin EC [Ecotrin Low Dose] 81 mg PO HS 03/21/14 02/05/18 Citalopram Hydrobromide [CeleXA] 40 mg PO HS 03/21/14 02/05/18 Losartan [Cozaar] 50 mg PO QAM 03/21/14 02/05/18 Multivitamins, Thera [Multivitamin 1 tab PO HS 03/21/14 02/05/18 (formulary)] Furosemide [Lasix] 20 mg PO DAILY 02/05/18 02/05/18 HYDROcodone/APAP 10-325MG [[place] 1 tab PO Q6H PRN 02/05/18 02/05/18 10-325] Insulin NPH Hum/Reg Insulin Hm 25 unit SQ AC-SUPPER 02/05/18 02/05/18 [NovoLIN 70-30 100 UNIT/ML VIAL] Insulin NPH Hum/Reg Insulin Hm 35 unit SQ AC-BRKFST 02/05/18 02/05/18 [NovoLIN 70-30 100 UNIT/ML VIAL] metFORMIN HCL 1,000 mg PO BID 02/05/18 02/05/18 Previous Rx's Medication Instructions Recorded ALPRAZolam [Xanax] 0.25 mg PO BID PRN #60 01/19/18 Amiodarone [Cordarone] 200 mg PO BID tab 01/19/18 Apixaban [Eliquis] 5 mg PO BID tab 01/19/18 Artificial Tears-Hypromellose 1 drops BOTH EYES QID PRN bottle 01/19/18 [Artificial Tear Drops] Atorvastatin [Lipitor] 40 mg PO DAILY tab 01/19/18 Metoprolol Tartrate [Lopressor] 12.5 mg PO Q12H tab 01/19/18 Pantoprazole [Protonix] 40 mg PO AC-BRKFST tablet. 01/19/18 Tamsulosin [Flomax] 0.4 mg PO BID cap.er.24h 01/19/18 guaiFENesin [Mucinex] 600 mg PO Q12HR PRN tablet.er 01/19/18 Allergies Allergy/AdvReac Type Severity Reaction Status Date / Time No Known Allergies Allergy Verified 02/05/18 21:25 Review of Systems ROS Statement: Those systems with pertinent positive or pertinent negative responses have been documented in the HPI. ROS Other: All systems not noted in ROS Statement are negative. Constitutional: Denies: fever Eyes: Denies: eye pain ENT: Denies: ear pain Respiratory: Denies: dyspnea Cardiovascular: Denies: edema Endocrine: Denies: fatigue Gastrointestinal: Denies: abdominal pain Genitourinary: Denies: dysuria Musculoskeletal: Denies: back pain Skin: Denies: rash Neurological: Denies: weakness, confusion Past Medical History Past Medical History: Coronary Artery Disease (CAD), CVA/TIA, Diabetes Mellitus , Hyperlipidemia, Hypertension, Myocardial Infarction ([place]), Prostate Disorder Additional Past Medical History / Comment(s): SEE H & P PROVIDED BY DR. EVA SILVERMAN. SOME UPPER RIGHT CHEST PAIN. HX OF TIA, ENLARGED PROSTATE, [place] X3 Last Myocardial Infarction Date:: 10/01/2011 History of Any Multi-Drug Resistant Organisms: None Reported Past Surgical History: Coronary Bypass/CABG, Heart Catheterization With Stent, Hernia Repair Additional Past Surgical History / Comment(s): INGUINAL HERNIA, RT HEEL SURGERY WITH HARDWARE. BILATERAL CATARACTS. Past Anesthesia/Blood Transfusion Reactions: No Reported Reaction Additional Past Anesthesia/Blood Transfusion Reaction / Comment(s): no hx blood transfusion Date of Last Stent Placement:: 10/01/2011 Past Psychological History: Anxiety, Depression Smoking Status: Never smoker Past Alcohol Use History: None Reported Past Drug Use History: None Reported - Past Family History Mother Family Medical History: Cancer, Diabetes Mellitus Additional Family Medical History / Comment(s): pancreas Father Family Medical History: Cancer General Exam Limitations: no limitations General appearance: alert, in no apparent distress Head exam: Present: other (Soft tissue swelling left posterior parietal region) Eye exam: Present: normal appearance, PERRL, EOMI. Absent: nystagmus ENT exam: Present: normal oropharynx Neck exam: Present: normal inspection, full ROM. Absent: tenderness Respiratory exam: Present: normal lung sounds bilaterally Cardiovascular Exam: Present: regular rate, normal rhythm GI/Abdominal exam: Present: soft. Absent: tenderness Extremities exam: Present: normal inspection, full ROM. Absent: tenderness Neurological exam: Present: alert, oriented X3, CN II-XII intact. Absent: motor sensory deficit Expanded Neurological exam: Present: protecting the airway Patient oriented to: Present: person, place, time Speech: Present: fluid speech Cranial nerves: EOM's Intact: Normal, Facial Sensation: Normal Sensory exam: Upper Extremity Light Touch: Normal, Lower Extremity Light Touch: Normal Motor strength exam: RUE: 5, LUE: 5, RLE: 5, LLE: 5 Eye Response: (4) open spontaneously Motor Response: (6) obeys commands Verbal Response: (5) oriented Psychiatric exam: Present: normal affect, normal mood Skin exam: Present: normal color Course Vital Signs 02/05/18 21:09 Temperature 97.7 F Pulse Rate 69 Respiratory 18 Rate Blood Pressure 137/58 O2 Sat by Pulse 91 L Oximetry EKG Findings - EKG Comments: EKG Findings:: Sinus rhythm at 68. First-degree AV block IA of 242. QRS 106. QT 546. QTC 580. Normal axis. Low QRS. Septal Q waves. No acute ST change. Medical Decision Making - Lab Data Lab Results 02/05/18 Range/Units 21:11 POC Glucose (mg/dL) 199 H (75-99) mg/dL POC Glu Ammonia Worker ID Lela Orozco - Radiology Data Radiology results: report reviewed (Computed tomography scan of the brain shows no acute intercranial abnormality.), image reviewed (X-ray of the right hip and pelvis shows no acute abnormality.) Disposition Clinical Impression: Fall, Head injury Disposition: HOME SELF-CARE Condition: Stable Instructions: Fall Prevention for Older Adults (ED), Head Injury (ED) Additional Instructions: Please follow-up with primary care physician in the next day or 2 for recheck. Please also follow-up with your bakery products checker tomorrow as scheduled. Hold Eliquis dose tomorrow morning. Return for change in mental status, weakness, confusion, speech problems, worsening symptoms or other concerns. Is patient prescribed a controlled substance at d/c from ED?: No Referrals: Yo Barr MD [Primary Care Provider] - 1-2 days Time of Disposition: 22:01
[2018-02-05 22:14] VITALS: BP 161/56; PULSE 65
== END 2018-02-05 22:32 | disposition home or self-care (01) ==
LOC: EC 21:03
DX: S09.90XA Unspecified injury of head, initial encounter (principal); I25.10 Atherosclerotic heart disease of native coronary artery without angina pectoris; E11.9 Type 2 diabetes mellitus without complications; I10 Essential (primary) hypertension; I25.2 Old myocardial infarction; F41.9 Anxiety disorder, unspecified; F32.9 Major depressive disorder, single episode, unspecified; Z86.73 Personal history of transient ischemic attack (TIA), and cerebral infarction without residual deficits; Z95.1 Presence of aortocoronary bypass graft; Z95.5 Presence of coronary angioplasty implant and graft; Z79.82 Long term (current) use of aspirin; Z79.4 Long term (current) use of insulin; Z79.899 Other long term (current) drug therapy; W01.0XXA Fall on same level from slipping, tripping and stumbling without subsequent striking against object, initial encounter; Y92.009 Unspecified place in unspecified non-institutional (private) residence as the place of occurrence of the external cause
CPT/HCPCS: 36415; 70450; 73502; 93005; 99285

== ENCOUNTER → 2018-06-26 | Outpatient (CLI) | payer MEDICARE, BC ==
[2018-06-26 21:49] LABS: Anion Gap 10.9 mmol/L (4.00-12.00); Calcium 9.3 mg/dL (8.7-10.3); Carbon Dioxide 25.1 mmol/L (21.6-31.8); Potassium 4.6 mmol/L (3.5-5.5)
== END | disposition home or self-care (01) ==
LOC: LABWHC1 13:52
PROVIDERS: ATTEND Internal Medicine Interventional Cardiology
DX: I25.10 Atherosclerotic heart disease of native coronary artery without angina pectoris (principal); I10 Essential (primary) hypertension
CPT/HCPCS: 36415; 80048

== ENCOUNTER 2018-07-06 18:28 | Emergency (ER) | payer MEDICARE, BC ==
[2018-07-06 18:35] VITALS: TEMP 98.2
--- NOTE | 2018-07-06 19:48 | ED ---
Extremity Problem HPI - General Chief complaint: Extremity Problem,Nontraumatic Stated complaint: arm pain Time Seen by Provider: 07/06/18 19:33 Source: patient, RN notes reviewed, old records reviewed Mode of arrival: ambulatory Limitations: no limitations - History of Present Illness Initial comments: This is a 33-year-old male the ER for evaluation. Patient is today for evaluation of severe left shoulder pain. Patient denies any significant injury or traumatic fall. Patient's been evaluated multiple times by his family doctor steroids with no improvement. Patient states the pain is persisted, he was packing today the pain significantly increased and had significant pain in his left shoulder left arm. Pain appears to be runs by subdural with decreased range of motion MD Complaint: extremity pain, joint pain (Left shoulder) -: week(s) Location: left, upper extremity History of Same: No -: Yes myalgia, Yes arthralgia Radiation: none Severity scale (1-10): 9 Quality: aching, crushing Consistency: constant Improves with: immobilization Worsens with: nothing Associated Symptoms: denies other symptoms - Related Data Home Medications Medication Instructions Recorded Confirmed Aspirin EC [Ecotrin Low Dose] 81 mg PO HS 03/21/14 02/05/18 Citalopram Hydrobromide [CeleXA] 40 mg PO HS 03/21/14 02/05/18 Losartan [Cozaar] 50 mg PO QAM 03/21/14 02/05/18 Multivitamins, Thera [Multivitamin 1 tab PO HS 03/21/14 02/05/18 (formulary)] Furosemide [Lasix] 20 mg PO DAILY 02/05/18 02/05/18 HYDROcodone/APAP 10-325MG [[place] 1 tab PO Q6H PRN 02/05/18 02/05/18 10-325] Insulin NPH Hum/Reg Insulin Hm 25 unit SQ AC-SUPPER 02/05/18 02/05/18 [NovoLIN 70-30 100 UNIT/ML VIAL] Insulin NPH Hum/Reg Insulin Hm 35 unit SQ AC-BRKFST 02/05/18 02/05/18 [NovoLIN 70-30 100 UNIT/ML VIAL] metFORMIN HCL 1,000 mg PO BID 02/05/18 02/05/18 Previous Rx's Medication Instructions Recorded ALPRAZolam [Xanax] 0.25 mg PO BID PRN #60 01/19/18 Amiodarone [Cordarone] 200 mg PO BID tab 01/19/18 Apixaban [Eliquis] 5 mg PO BID tab 01/19/18 Artificial Tears-Hypromellose 1 drops BOTH EYES QID PRN bottle 01/19/18 [Artificial Tear Drops] Atorvastatin [Lipitor] 40 mg PO DAILY tab 01/19/18 Metoprolol Tartrate [Lopressor] 12.5 mg PO Q12H tab 01/19/18 Pantoprazole [Protonix] 40 mg PO AC-BRKFST tablet.dr 01/19/18 Tamsulosin [Flomax] 0.4 mg PO BID cap.er.24h 01/19/18 guaiFENesin [Mucinex] 600 mg PO Q12HR PRN tablet.er 01/19/18 Allergies Allergy/AdvReac Type Severity Reaction Status Date / Time No Known Allergies Allergy Verified 07/06/18 18:35 Review of Systems ROS Statement: Those systems with pertinent positive or pertinent negative responses have been documented in the HPI. ROS Other: All systems not noted in ROS Statement are negative. Past Medical History Past Medical History: Coronary Artery Disease (CAD), CVA/TIA, Diabetes Mellitus , Hyperlipidemia, Hypertension, Myocardial Infarction ([place]), Prostate Disorder Additional Past Medical History / Comment(s): SEE H & P PROVIDED BY DR. EVA SILVERMAN. SOME UPPER RIGHT CHEST PAIN. HX OF TIA, ENLARGED PROSTATE, [place] X3 Last Myocardial Infarction Date:: 10/01/2011 History of Any Multi-Drug Resistant Organisms: None Reported Past Surgical History: Coronary Bypass/CABG, Heart Catheterization With Stent, Hernia Repair Additional Past Surgical History / Comment(s): INGUINAL HERNIA, RT HEEL SURGERY WITH HARDWARE. BILATERAL CATARACTS. Past Anesthesia/Blood Transfusion Reactions: No Reported Reaction Additional Past Anesthesia/Blood Transfusion Reaction / Comment(s): no hx blood transfusion Date of Last Stent Placement:: 10/01/2011 Past Psychological History: Anxiety, Depression Smoking Status: Never smoker Past Alcohol Use History: None Reported Past Drug Use History: None Reported - Past Family History Mother Family Medical History: Cancer, Diabetes Mellitus Additional Family Medical History / Comment(s): pancreas Father Family Medical History: Cancer General Exam Limitations: no limitations General appearance: alert, in no apparent distress Head exam: Present: atraumatic, normocephalic, normal inspection Eye exam: Present: normal appearance, PERRL, EOMI. Absent: scleral icterus, conjunctival injection, periorbital swelling ENT exam: Present: normal exam, mucous membranes moist Neck exam: Present: normal inspection. Absent: tenderness, meningismus, lymphadenopathy Respiratory exam: Present: normal lung sounds bilaterally. Absent: respiratory distress, wheezes, rales, rhonchi, stridor Cardiovascular Exam: Present: regular rate, normal rhythm, normal heart sounds. Absent: systolic murmur, diastolic murmur, rubs, gallop, clicks GI/Abdominal exam: Present: soft, normal bowel sounds. Absent: distended, tenderness, guarding, rebound, rigid Extremities exam: Present: normal inspection, normal capillary refill, other ( Left shoulder tenderness, severe difficulty with range of motion and pain). Absent: full ROM (No passive range of motion, pain with passive and pain with active), tenderness, pedal edema, joint swelling, calf tenderness Back exam: Present: normal inspection Neurological exam: Present: alert, oriented X3, CN II-XII intact Psychiatric exam: Present: normal affect, normal mood Skin exam: Present: warm, dry, intact, normal color. Absent: rash Course Vital Signs 07/06/18 18:33 Temperature 98.2 F Pulse Rate 72 Respiratory 18 Rate Blood Pressure 178/71 O2 Sat by Pulse 99 Oximetry - Reevaluation(s) Reevaluation #1: 07/06/18 20:16 Medical record reviewed Reevaluation #2: 07/06/18 20:16 Patient has improved pain control Reevaluation #3: 07/06/18 20:16 Patient is able to be taken to stretching with good range of motion Medical Decision Making - Medical Decision Making 73 male the ER for evaluation patient resents today for evaluation of left shoulder pain severe left lower pain specifically with movement. - Radiology Data Radiology results: report reviewed (X-ray left shoulder is negative for acute disease), image reviewed Disposition Clinical Impression: Sprain of left shoulder Disposition: HOME SELF-CARE Condition: Good Instructions: Shoulder Sprain (ED) Is patient prescribed a controlled substance at d/c from ED?: No Referrals: Yo Barr MD [Primary Care Provider] - 1-2 days
[2018-07-06] MEDS ORDERED: HYDROmorphone 1 MG/ML 1 ML SYRINGE IM STA (20:02)
[2018-07-06] MEDS ORDERED: DIAZEPAM 5 MG TAB PO STA (20:02)
[2018-07-06] MEDS ORDERED: IBUPROFEN 800 MG TAB PO STA (20:02)
[2018-07-06] MEDS ORDERED: methylPREDNISolone ACETATE 80 MG/ML 1 ML VIAL INTRABURSA STA (20:31)
[2018-07-06] MEDS ORDERED: LIDOCAINE 2% (PF) 20 MG/ML 10 ML AMP INTRAARTIC STA (20:32)
--- NOTE | 2018-07-06 20:53 | XR ---
EXAMINATION TYPE: XR shoulder complete LT DATE OF EXAM: 07/06/2018 COMPARISON: NONE HISTORY: Shoulder pain TECHNIQUE: 3 views FINDINGS: I see no fracture nor dislocation. Glenohumeral joint is intact. There are no pathologic ca lcifications. IMPRESSION: Negative left shoulder exam.
[2018-07-06 21:38] VITALS: BP 136/64; PULSE 84; RESP 14
== END 2018-07-06 21:44 | disposition home or self-care (01) ==
LOC: EC 18:28
DX: S43.402A Unspecified sprain of left shoulder joint, initial encounter (principal); I25.10 Atherosclerotic heart disease of native coronary artery without angina pectoris; E11.9 Type 2 diabetes mellitus without complications; I10 Essential (primary) hypertension; I25.2 Old myocardial infarction; F32.9 Major depressive disorder, single episode, unspecified; F41.9 Anxiety disorder, unspecified; Z79.82 Long term (current) use of aspirin; Z79.4 Long term (current) use of insulin; Z79.899 Other long term (current) drug therapy; Z95.1 Presence of aortocoronary bypass graft; Z95.5 Presence of coronary angioplasty implant and graft; Z86.73 Personal history of transient ischemic attack (TIA), and cerebral infarction without residual deficits
CPT/HCPCS: 99284; 96372; 73030; 20610; J1040; J2001; J1170

== ENCOUNTER → 2018-09-27 | Outpatient (CLI) | payer MEDICARE, BC ==
--- NOTE | 2018-09-27 15:38 | US ---
EXAMINATION TYPE: US carotid duplex BILAT DATE OF EXAM: 09/27/2018 COMPARISON: NONE CLINICAL HISTORY: R09.89 Right Carotid Bruit. History of heart stents and some heart attacks multiple thyroid nodules imelda EXAM MEASUREMENTS: RIGHT: Peak Systolic Velocity (PSV) cm/sec ----- Right CCA: 113.5 ----- Right ICA: 140 ----- Right ECA: 256.2 ICA/CCA ratio: 1.2 RIGHT: End Diastole cm/sec ----- Right CCA: 16.3 ----- Right ICA: 20.4 ----- Right ECA:15.0 LEFT: Peak Systolic Velocity (PSV) cm/sec ----- Left CCA: 110.6 ----- Left ICA: 122.0 ----- Left ECA: 148.5 ICA/CCA ratio: 1.1 LEFT: End Diastole cm/sec ----- Left CCA: 18.4 ----- Left ICA: 29.0 ----- Left ECA: 10.0 VERTEBRALS (direction of flow): Right Vertebral: Antegrade Left Vertebral: Antegrade Rhythm: Normal Multiple thyroid nodules identified IMPRESSION: 1. No significant hemodynamic stenosis. 2. Multiple thyroid nodules. Criteria for Assigning % of Stenosis / Diameter reduction (Estimation based on the indirect measurements of the internal carotid artery velocities (ICA PSV). 1. Normal (no stenosis)=ICA PSV < 125 cm/s: ratio < 2.0: ICA EDV<40 cm/s. 2. Less than 50% stenosis=ICA PSV < 125 cm/s: ratio < 2.0: ICA EDV<40 cm/s. 3. 50 to 69% stenosis=ICA PSV of 125 to 230 cm/s: ration 2.0 ? 4.0: ICA EDV 40-100 cm/s. 4. Greater than 70% stenosis to near occlusion= ICA PSV > 230 cm/s: ratio > 4.0: ICA EDV > 100 cm/s. 5. Near occlusion= ICA PSV velocities may be low or undetectable: variable ratio and ICA EDV. 6. Total occlusion=unable to detect flow.
== END | disposition home or self-care (01) ==
LOC: RADUSWWP 14:46
PROVIDERS: ATTEND Internal Medicine
DX: E04.2 Nontoxic multinodular goiter (principal); R09.89 Other specified symptoms and signs involving the circulatory and respiratory systems
CPT/HCPCS: 93880

== ENCOUNTER 2019-02-24 19:42 | Emergency (ER) | payer MEDICARE, BC ==
[2019-02-24 20:25] LABS: Glucose,Whole Blood 307 mg/dL (75-99)
[2019-02-24] MEDS ORDERED: valACYclovir HCL 1,000 MG TABLET PO STA (20:45)
--- NOTE | 2019-02-24 20:50 | ED ---
Skin/Abscess/FB HPI - General Chief complaint: Skin/Abscess/Foreign Body Stated complaint: Rash Time Seen by Provider: 02/24/19 20:02 Source: patient, RN notes reviewed, old records reviewed Mode of arrival: ambulatory Limitations: no limitations - History of Present Illness Initial comments: Patient is a 73-year-old male presents emergency department today with a painful blisterlike rash over his left chest and back. Patient reports that he started to have the rash possibly 2 days ago. He reports his concern for shingles. He reports that he has had chickenpox as a kid but did receive a shingles vaccine. Patient states that he has had no fevers or chills or any other areas of pain or rash or lesions. - Related Data Home Medications Medication Instructions Recorded Confirmed Aspirin EC [Ecotrin Low Dose] 81 mg PO HS 03/21/14 07/06/18 Citalopram Hydrobromide [CeleXA] 40 mg PO HS 03/21/14 07/06/18 Multivitamins, Thera [Multivitamin 1 tab PO HS 03/21/14 07/06/18 (formulary)] Furosemide [Lasix] 20 mg PO DAILY 02/05/18 07/06/18 Insulin NPH Hum/Reg Insulin Hm 25 unit SQ AC-SUPPER 02/05/18 07/06/18 [NovoLIN 70-30 100 UNIT/ML VIAL] Insulin NPH Hum/Reg Insulin Hm 35 unit SQ AC-BRKFST 02/05/18 07/06/18 [NovoLIN 70-30 100 UNIT/ML VIAL] metFORMIN HCL 1,000 mg PO BID 02/05/18 07/06/18 Albuterol Inhaler [Ventolin Hfa 2 puff INHALATION RT-Q6H PRN 07/06/18 07/06/18 Inhaler] Budesonide-Formot 160-4.5 Mcg 2 puff INHALATION RT-BID 07/06/18 07/06/18 [Symbicort 160-4.5 Mcg Inhaler] Magnesium Hydroxide [Milk of 2,400 mg PO BID PRN 07/06/18 07/06/18 Magnesia] Mometasone/Formoterol [Dulera 100 2 puff INHALATION RT-DAILY 07/06/18 07/06/18 Mcg/5 Mcg Inhaler] Sennosides [Senna] 17.2 mg PO HS 07/06/18 07/06/18 Spironolactone [Aldactone] 25 mg PO DAILY 07/06/18 07/06/18 Previous Rx's Medication Instructions Recorded ALPRAZolam [Xanax] 0.25 mg PO BID PRN #60 01/19/18 Apixaban [Eliquis] 5 mg PO BID tab 01/19/18 Artificial Tears-Hypromellose 1 drops BOTH EYES QID PRN bottle 01/19/18 [Artificial Tear Drops] Atorvastatin [Lipitor] 40 mg PO DAILY tab 01/19/18 Metoprolol Tartrate [Lopressor] 12.5 mg PO Q12H tab 01/19/18 Pantoprazole [Protonix] 40 mg PO AC-BRKFST tablet. 01/19/18 Tamsulosin [Flomax] 0.4 mg PO BID cap.er.24h 01/19/18 guaiFENesin [Mucinex] 600 mg PO Q12HR PRN tablet.er 01/19/18 Gabapentin [Neurontin] 300 mg PO DIRECTED #6 02/24/19 valACYclovir HCL [Valacyclovir] 1,000 mg PO TID #21 tab 02/24/19 Allergies Allergy/AdvReac Type Severity Reaction Status Date / Time No Known Allergies Allergy Verified 07/06/18 20:34 Review of Systems ROS Statement: Those systems with pertinent positive or pertinent negative responses have been documented in the HPI. ROS Other: All systems not noted in ROS Statement are negative. Past Medical History Past Medical History: Coronary Artery Disease (CAD), CVA/TIA, Diabetes Mellitus, Hyperlipidemia, Hypertension, Myocardial Infarction ([place]), Prostate Disorder Additional Past Medical History / Comment(s): SEE H & P PROVIDED BY DR. EVA SILVERMAN. SOME UPPER RIGHT CHEST PAIN. HX OF TIA, ENLARGED PROSTATE, [place] X3 Last Myocardial Infarction Date:: 10/01/2011 History of Any Multi-Drug Resistant Organisms: None Reported Past Surgical History: Coronary Bypass/CABG, Heart Catheterization With Stent, Hernia Repair Additional Past Surgical History / Comment(s): INGUINAL HERNIA, RT HEEL SURGERY WITH HARDWARE. BILATERAL CATARACTS. Past Anesthesia/Blood Transfusion Reactions: No Reported Reaction Additional Past Anesthesia/Blood Transfusion Reaction / Comment(s): no hx blood transfusion Date of Last Stent Placement:: 10/01/2011 Past Psychological History: Anxiety, Depression Smoking Status: Never smoker Past Alcohol Use History: None Reported Past Drug Use History: None Reported - Past Family History Mother Family Medical History: Cancer, Diabetes Mellitus Additional Family Medical History / Comment(s): pancreas Father Family Medical History: Cancer General Exam - General Exam Comments Initial Comments: This is a 73-year-old male. Alert and oriented 3. No distress. General: Well appearing, well nourished, in no distress. Oriented x 3, normal mood and affect . Ambulating without difficulty. Skin: Good turgor, Patient has blisterlike crop-like vesicles over the left chest wall underneath her breast at the T 60 dermatome. Hair: Normal texture and distribution. HEENT: Head: Normocephalic, atraumatic, no visible or palpable masses, depressions, or scaring. Pharynx: Mucosa non-inflamed, no tonsillar hypertrophy or exudate Neck: Supple, without lesions, bruits, or adenopathy, thyroid non-enlarged and n on-tender Heart: No cardiomegaly or thrills; regular rate and rhythm, no murmur or gallop Lungs: Clear to auscultation and percussion Abdomen: Bowel sounds normal, no tenderness, organomegaly, masses, or hernia Back: Spine normal without deformity or tenderness, no CVA tenderness Neurologic: CN 2-12 normal. Sensation to pain, touch, and proprioception normal. DTRs normal in upper and lower extremities. No pathologic reflexes. Psychiatric: Oriented X3, intact recent and remote memory, judgment and insight, normal mood and affect. Limitations: no limitations Course Vital Signs 02/24/19 02/24/19 19:58 21:32 Temperature 98.7 F 98.6 F Pulse Rate 61 60 Respiratory 18 17 Rate Blood Pressure 133/60 130/74 O2 Sat by Pulse 98 98 Oximetry Medical Decision Making - Medical Decision Making 71-year-old male presents returns today blisterlike rash over his left chest wall at T6 dermatome. Patient will be treated for shingles started on Valtrex given dose in the ED also started a short course of Neurontin for concern for postherpetic neuralgia. Discussed the Patient have further prescription of this by his PCP. Patient has no signs of disseminated shingles. Discussed contact precautions. Patient is agreeable to treatment plan will comply. Return parameters were discussed. - Lab Data Lab Results 02/24/19 Range/Units 20:24 POC Glucose (mg/dL) 307 H (75-99) mg/dL POC Glu Door Opener ID Yoana Gill Disposition Clinical Impression: Shingles Disposition: HOME SELF-CARE Condition: Good Instructions (If sedation given, give patient instructions): Shingles (ED) Additional Instructions: Please use medication as discussed. Please follow up with family doctor if symptoms have not improved over the next two days. Please return to the emergency room if your symptoms increase or worsen or for any other concerns. Prescriptions: Gabapentin [Neurontin] 300 mg PO DIRECTED #6 valACYclovir HCL [Valacyclovir] 1,000 mg PO TID #21 tab Is patient prescribed a controlled substance at d/c from ED?: No Referrals: Yo Barr MD [Primary Care Provider] - 1-2 days Time of Disposition: 20:47
[2019-02-24] MEDS ORDERED: valACYclovir HCL 1,000 MG TABLET PO ONE (21:30)
[2019-02-24 21:33] VITALS: BP 130/74; PULSE 60; RESP 17; TEMP 98.6
== END 2019-02-24 21:33 | disposition home or self-care (01) ==
LOC: EC 19:42
DX: B02.9 Zoster without complications (principal); I25.10 Atherosclerotic heart disease of native coronary artery without angina pectoris; E11.9 Type 2 diabetes mellitus without complications; I10 Essential (primary) hypertension; I25.2 Old myocardial infarction; Z95.5 Presence of coronary angioplasty implant and graft; Z95.1 Presence of aortocoronary bypass graft; Z86.73 Personal history of transient ischemic attack (TIA), and cerebral infarction without residual deficits; F41.9 Anxiety disorder, unspecified; F32.9 Major depressive disorder, single episode, unspecified; Z79.82 Long term (current) use of aspirin; Z79.4 Long term (current) use of insulin; Z79.51 Long term (current) use of inhaled steroids; Z79.899 Other long term (current) drug therapy
CPT/HCPCS: 36415; 99283

== ENCOUNTER 2021-03-18 00:22 | Inpatient (IN) | payer MEDICARE, BC ==
--- NOTE | 2021-03-18 00:31 | ED ---
Chest Pain HPI - General Stated Complaint: chest pain Time Seen by Provider: 03/18/21 00:30 - Related Data Home Medications Medication Instructions Recorded Confirmed Aspirin EC [Ecotrin Low Dose] 81 mg PO HS 03/21/14 07/06/18 Citalopram Hydrobromide [CeleXA] 40 mg PO HS 03/21/14 07/06/18 Multivitamins, Thera [Multivitamin 1 tab PO HS 03/21/14 07/06/18 (formulary)] Furosemide [Lasix] 20 mg PO DAILY 02/05/18 07/06/18 Insulin NPH Hum/Reg Insulin Hm 25 unit SQ AC-SUPPER 02/05/18 07/06/18 [NovoLIN 70-30 100 UNIT/ML VIAL] Insulin NPH Hum/Reg Insulin Hm 35 unit SQ AC-BRKFST 02/05/18 07/06/18 [NovoLIN 70-30 100 UNIT/ML VIAL] metFORMIN HCL [Glucophage] 1,000 mg PO BID 02/05/18 07/06/18 Albuterol Inhaler (Mhu) [Ventolin 2 puff INHALATION RT-Q6H PRN 07/06/18 07/06/18 Hfa Inhaler] Budesonide-Formot 160-4.5 Mcg 2 puff INHALATION RT-BID 07/06/18 07/06/18 [Symbicort 160-4.5 Mcg Inhaler] Magnesium Hydroxide [Milk of 2,400 mg PO BID PRN 07/06/18 07/06/18 Magnesia] Mometasone/Formoterol [Dulera 100 2 puff INHALATION RT-DAILY 07/06/18 07/06/18 Mcg/5 Mcg Inhaler] Sennosides [Senna] 17.2 mg PO HS 07/06/18 07/06/18 Spironolactone [Aldactone] 25 mg PO DAILY 07/06/18 07/06/18 Previous Rx's Medication Instructions Recorded ALPRAZolam [Xanax] 0.25 mg PO BID PRN #60 01/19/18 Apixaban [Eliquis] 5 mg PO BID tab 01/19/18 Artificial Tears-Hypromellose 1 drops BOTH EYES QID PRN bottle 01/19/18 [Artificial Tear Drops] Atorvastatin [Lipitor] 40 mg PO DAILY tab 01/19/18 Metoprolol Tartrate [Lopressor] 12.5 mg PO Q12H tab 01/19/18 Pantoprazole [Protonix] 40 mg PO AC-BRKFST tablet. 01/19/18 Tamsulosin [Flomax] 0.4 mg PO BID cap.er.24h 01/19/18 guaiFENesin [Mucinex] 600 mg PO Q12HR PRN tablet.er 01/19/18 Gabapentin [Neurontin] 300 mg PO DIRECTED #6 02/24/19 valACYclovir HCL [Valacyclovir] 1,000 mg PO TID #21 tab 02/24/19 Allergies Allergy/AdvReac Type Severity Reaction Status Date / Time No Known Allergies Allergy Verified 07/06/18 20:34 Review of Systems ROS Statement: Those systems with pertinent positive or pertinent negative responses have been documented in the HPI. ROS Other: All systems not noted in ROS Statement are negative. EKG Findings - EKG Comments: EKG Findings:: EKG shows sinus rhythm 66 IA 260 QRS 102 QTC 480 Past Medical History Past Medical History: Coronary Artery Disease (CAD), CVA/TIA, Diabetes Mellitus, Hyperlipidemia, Hypertension, Myocardial Infarction ([place]), Prostate Disorder Additional Past Medical History / Comment(s): SEE H & P PROVIDED BY DR. EVA SILVERMAN. SOME UPPER RIGHT CHEST PAIN. HX OF TIA, ENLARGED PROSTATE, [place] X3 Last Myocardial Infarction Date:: 10/01/2011 History of Any Multi-Drug Resistant Organisms: None Reported Past Surgical History: Coronary Bypass/CABG, Heart Catheterization With Stent, Hernia Repair Additional Past Surgical History / Comment(s): INGUINAL HERNIA, RT HEEL SURGERY WITH HARDWARE. BILATERAL CATARACTS. Past Anesthesia/Blood Transfusion Reactions: No Reported Reaction Additional Past Anesthesia/Blood Transfusion Reaction / Comment(s): no hx blood transfusion Date of Last Stent Placement:: 10/01/2011 Past Psychological History: Anxiety, Depression Past Alcohol Use History: None Reported Past Drug Use History: None Reported - Past Family History Mother Family Medical History: Cancer, Diabetes Mellitus Additional Family Medical History / Comment(s): pancreas Father Family Medical History: Cancer Course Vital Signs 03/18/21 00:26 Temperature 97.8 F Pulse Rate 68 Respiratory 17 Rate Blood Pressure 131/56 O2 Sat by Pulse 92 L Oximetry Disposition Clinical Impression: History of heart artery stent, Coronary artery disease, Chest pain Narrative: ? Episode of VT Disposition: ADMITTED IP TO THIS HOSP Condition: Serious Is patient prescribed a controlled substance at d/c from ED?: No Referrals: Promise Pierce MD [Primary Care Provider] - 1-2 days
[2021-03-18 01:10] LABS: Basophils % (A) 0 %; Eosinophils # (A) 0.2 k/uL (0-0.7); Eosinophils % (A) 2 %; HCT 37.7 % (39.0-53.0); HGB 12.6 gm/dL (13.0-17.5); Lymphocytes # (A) 1.2 k/uL (1.0-4.8); Lymphocytes % (A) 16 %; MCHC 33.4 g/dL (31.0-37.0); MCV 92.8 fL (80.0-100.0); Mean Platelet Volume 9.9; Monocytes # (A) 0.5 k/uL (0-1.0); Monocytes % (A) 7 %; Neutrophils # (A) 5.5 k/uL (1.3-7.7); Neutrophils % (A) 73 %; Platelet Count 207 k/uL (150-450); RBC 4.06 m/uL (4.30-5.90); RDW 12.5 % (11.5-15.5); WBC 7.5 k/uL (3.8-10.6)
[2021-03-18 01:24] LABS: INR 1.1 (<1.2); Partial Thromboplastin Time 24.8 sec (22.0-30.0); Prothrombin Time 11.1 sec (9.0-12.0)
[2021-03-18 01:40] LABS: Albumin 3.5 g/dL (3.5-5.0); Calcium 8.7 mg/dL (8.4-10.2); Total Bilirubin 0.4 mg/dL (0.2-1.3); Total Protein 5.8 g/dL (6.3-8.2)
[2021-03-18] MEDS ORDERED: MORPHINE SULFATE 4 MG/ML SYRINGE IV PRN (01:46)
[2021-03-18] MEDS ORDERED: ASPIRIN 81 MG PO STA (01:46)
[2021-03-18] MEDS ORDERED: NITROGLYCERIN SL TABS 0.4 MG TAB SUBLINGUAL PRN (01:46)
--- NOTE | 2021-03-18 01:48 | XR ---
EXAMINATION TYPE: XR chest 2V DATE OF EXAM: 03/18/2021 COMPARISON: 01/19/2018 HISTORY: Chest pain TECHNIQUE: 2 views FINDINGS: There is some mild atelectasis at the lung bases. Heart size is normal. There are sternal w ires. There is no pleural effusion. Bony thorax is intact. There is no heart failure. There are old r ight-sided healed rib fractures. IMPRESSION: There is some mild atelectasis at the lung bases without change. Normal heart.
[2021-03-18] MEDS: SODIUM CHLORIDE 0.9% 1,000 ML IV SCH (02:13)
--- NOTE | 2021-03-18 03:23 | P.HPIM ---
History of Present Illness H&P Date: 03/18/21 Patient is a 76-year-old male with an extensive coronary artery disease history including multiple stents and CABG, chronic hypoxic respiratory failure on home O2 continuously, hypertension, hyperlipidemia, type II DM, and BPH who presented to the emergency room for chest pain, shortness of breath, and palpitations. Patient reports that he was trying to go to bed at his usual 11 PM when he suddenly developed shortness of breath and acute substernal chest and right arm pain. The pain was 8 out of 10 on maximal intensity, constant, with associated lightheadedness, and palpitations. The patient checked his SpO2 which read as 97 with a pulse of 202. The patient immediately activated EMS and upon arrival at the scene also noted his pulse to be 210. The EMS gave the patient sublingual nitro and when they obtained an EKG, the patient had reverted to sinus rhythm. In the emergency room, at time of evaluation the patient reported that his chest and arm discomfort had resolved. He noted that they resolved en-route to the hospital. He denied fever, chills, nausea, vomiting, abdominal pain. He denied headaches, visual disturbances, weakness, numbness, tingling. Chest x-ray in the emergency room revealed mild atelectasis but otherwise unremarkable. EKG revealed sinus rhythm with first degree AV block with left anterior fascicular block at 66 bpm. Laboratory evaluation was remarkable for troponin of 0.025 and a proBNP of 244. Review of systems: Pertinent positives and negatives as discussed in HPI, a complete review of systems was performed and all other systems are negative. Physical examination: General: non toxic, no distress, appears at stated age, obese Derm: no unusual rashes/lesions no unusual ecchymoses, warm, dry Head: atraumatic, normocephalic, symmetric Eyes: EOMI, no lid lag, anicteric sclera, pupils equal round reactive to light ENT: Nose and ears atraumatic, no thrush, no pharyngeal erythema Neck: No thyromegaly, no cervical lymphadenopathy, trachea midline, supple Mouth: no lip lesion, mucus membranes moist Cardiovascular: S1S2 reg, no murmur, positive posterior tibial pulse bilateral, no edema, capillary refill less than 2 seconds Lungs: CTA bilateral, no rhonchi, no rales , no accessory muscle use Abdominal: soft, nontender to palpation, no guarding, no appreciable organomegaly, normal bowel sounds Ext: no gross muscle atrophy, muscle strength 5 out of 5 in all 4 extremities grossly, no contractures, Neuro: CN II-XI grossly intact, light touch intact all 4 extremities, finger to nose within normal limits, Psych: Alert, oriented, appropriate affect Assessment/plan Chest discomfort and tachycardia, rule out ACS -Continue with cardiac monitoring -Trend troponin -Cardiology consulted -Continue with aspirin Chronic conditions: Hypertension, hyperlipidemia, type II DM, BPH -Continue with home meds -Check A1c -Lispro insulin sliding scale and blood glucose monitoring DVT prophylaxis -heparin subq The patient is admitted with an anticipated less than 2 midnight stay for evaluation of chest pain. CODE STATUS: Full Code Discussed with: patient Anticipated discharge date: in am Anticipated discharge place: Home Past Medical History Past Medical History: Coronary Artery Disease (CAD), CVA/TIA, Diabetes Mellitus, Hyperlipidemia, Hypertension, Myocardial Infarction ([place]), Prostate Disorder Additional Past Medical History / Comment(s): SEE H & P PROVIDED BY DR. EVA SILVERMAN. SOME UPPER RIGHT CHEST PAIN. HX OF TIA, ENLARGED PROSTATE, [place] X3 Last Myocardial Infarction Date:: 10/01/2011 History of Any Multi-Drug Resistant Organisms: None Reported Past Surgical History: Coronary Bypass/CABG, Heart Catheterization With Stent, Hernia Repair Additional Past Surgical History / Comment(s): INGUINAL HERNIA, RT HEEL SURGERY WITH HARDWARE. BILATERAL CATARACTS. Past Anesthesia/Blood Transfusion Reactions: No Reported Reaction Additional Past Anesthesia/Blood Transfusion Reaction / Comment(s): no hx blood transfusion Date of Last Stent Placement:: 10/01/2011 Past Psychological History: Anxiety, Depression Past Alcohol Use History: None Reported Past Drug Use History: None Reported - Past Family History Mother Family Medical History: Cancer, Diabetes Mellitus Additional Family Medical History / Comment(s): pancreas Father Family Medical History: Cancer Medications and Allergies Home Medications Medication Instructions Recorded Confirmed Type Aspirin EC [Ecotrin Low Dose] 81 mg PO HS 03/21/14 07/06/18 History Citalopram Hydrobromide [CeleXA] 40 mg PO HS 03/21/14 07/06/18 History Multivitamins, Thera [Multivitamin 1 tab PO HS 03/21/14 07/06/18 History (formulary)] ALPRAZolam [Xanax] 0.25 mg PO BID PRN #60 01/19/18 07/06/18 Rx Apixaban [Eliquis] 5 mg PO BID tab 01/19/18 07/06/18 Rx Artificial Tears-Hypromellose 1 drops BOTH EYES QID PRN bottle 01/19/18 07/06/18 Rx [Artificial Tear Drops] Atorvastatin [Lipitor] 40 mg PO DAILY tab 01/19/18 07/06/18 Rx Metoprolol Tartrate [Lopressor] 12.5 mg PO Q12H tab 01/19/18 07/06/18 Rx Pantoprazole [Protonix] 40 mg PO AC-BRKFST tablet.dr 01/19/18 07/06/18 Rx Tamsulosin [Flomax] 0.4 mg PO BID cap.er.24h 01/19/18 07/06/18 Rx guaiFENesin [Mucinex] 600 mg PO Q12HR PRN tablet.er 01/19/18 07/06/18 Rx Furosemide [Lasix] 20 mg PO DAILY 02/05/18 07/06/18 History Insulin NPH Hum/Reg Insulin Hm 25 unit SQ AC-SUPPER 02/05/18 07/06/18 History [NovoLIN 70-30 100 UNIT/ML VIAL] Insulin NPH Hum/Reg Insulin Hm 35 unit SQ AC-BRKFST 02/05/18 07/06/18 History [NovoLIN 70-30 100 UNIT/ML VIAL] metFORMIN HCL [Glucophage] 1,000 mg PO BID 02/05/18 07/06/18 History Albuterol Inhaler (Mhu) [Ventolin 2 puff INHALATION RT-Q6H PRN 07/06/18 07/06/18 History Hfa Inhaler] Budesonide-Formot 160-4.5 Mcg 2 puff INHALATION RT-BID 07/06/18 07/06/18 History [Symbicort 160-4.5 Mcg Inhaler] Magnesium Hydroxide [Milk of 2,400 mg PO BID PRN 07/06/18 07/06/18 History Magnesia] Mometasone/Formoterol [Dulera 100 2 puff INHALATION RT-DAILY 07/06/18 07/06/18 History Mcg/5 Mcg Inhaler] Sennosides [Senna] 17.2 mg PO HS 07/06/18 07/06/18 History Spironolactone [Aldactone] 25 mg PO DAILY 07/06/18 07/06/18 History Gabapentin [Neurontin] 300 mg PO DIRECTED #6 02/24/19 Rx valACYclovir HCL [Valacyclovir] 1,000 mg PO TID #21 tab 02/24/19 Rx Allergies Allergy/AdvReac Type Severity Reaction Status Date / Time No Known Allergies Allergy Verified 07/06/18 20:34 Physical Exam Vitals: Vital Signs Temp Pulse Resp BP Pulse Ox 03/18/21 02:11 57 L 16 124/63 100 03/18/21 00:26 97.8 F 68 17 131/56 92 L Intake and Output 03/17/21 03/17/21 03/18/21 14:59 22:59 06:59 Other: Weight 96.615 kg Results CBC & Chem 7: 03/18/21 00:46 03/18/21 00:46 Labs: Abnormal Lab Results - Last 24 Hours (Table) 03/18/21 03/18/21 Range/Units 00:46 00:46 RBC 4.06 L (4.30-5.90) m/uL Hgb 12.6 L (13.0-17.5) gm/dL Hct 37.7 L (39.0-53.0) % Carbon Dioxide 21 L (22-30) mmol/L BUN 22 H (9-20) mg/dL Total Protein 5.8 L (6.3-8.2) g/dL Lipase 18 L (23-300) U/L
[2021-03-18 08:47] LABS: Glucose,Whole Blood 77 mg/dL (75-99)
[2021-03-18 09:54] LABS: Glucose,Whole Blood 123 mg/dL (75-99)
[2021-03-18] MEDS ORDERED: HEPARIN SODIUM 1,000 UN/ML (10ML VL) IV PRN (10:19)
--- NOTE | 2021-03-18 10:49 | ECHOF ---
Referral Reason:arrhythmia MEASUREMENTS -------- HEIGHT: 175.3 cm WEIGHT: 96.6 kg BP: 124/63 RVIDd: 3.5 cm (< 3.3) IVSd: 1.3 cm (0.6 - 1.1) LVIDd: 5.9 cm (3.9 - 5.3) LVPWd: 1.0 cm (0.6 - 1.1) IVSs: 1.4 cm LVIDs: 5.5 cm LVPWs: 1.3 cm LA Diam: 4.0 cm (2.7 - 3.8) LAESV Index (A-L): 32.26 ml/m Ao Diam: 3.5 cm (2.0 - 3.7) AV Cusp: 2.4 cm (1.5 - 2.6) MV EXCURSION: 19.783 mm (> 18.000) MV EF SLOPE: 85 mm/s (70 - 150) EPSS: 0.6 cm MV E Damian: 0.87 m/s MV DecT: 397 ms MV A Damian: 0.78 m/s MV E/A Ratio: 1.11 AR PHT: 756 ms RAP: 5.00 mmHg RVSP: 32.90 mmHg FINDINGS -------- Resting bradycardia (HR<60bpm). This was a technically difficult study with suboptimal views. The left ventricular size is normal. There is mild concentric left ventricular hypertrophy. Overa ll left ventricular systolic function is mild-moderately impaired with, an EF between 40 - 45 %. Ap ical anterior LV wall motion is hypokinetic. Apical lateral LV wall motion is hypokinetic. Apic al inferior LV wall motion is hypokinetic. Apical septum LV wall motion is hypokinetic. The right ventricle is mildly enlarged. LA is midly dilated 29-33ml/m2. The right atrium is normal in size. 5 ml of Lumason was utilized for enhancement of images. Interatrial and interventricular septum intact. The aortic valve is trileaflet, and appears structurally normal. No aortic stenosis or regurgitation. There is trace mitral regurgitation. Mild tricuspid regurgitation present. Right ventricular systolic pressure is normal at < 35 mmHg. Trace/mild (physiologic) pulmonic regurgitation. The aortic root size is normal. Normal inferior vena cava with normal inspiratory collapse consistent with estimated right atrial pre ssure of 5 mmHg. There is no pericardial effusion. CONCLUSIONS -------- 1. The left ventricular size is normal. 2. There is mild concentric left ventricular hypertrophy. 3. Overall left ventricular systolic function is mild-moderately impaired with, an EF between 40 - 45 %. 4. Apical anterior LV wall motion is hypokinetic. 5. Apical lateral LV wall motion is hypokinetic. 6. Apical inferior LV wall motion is hypokinetic. 7. Apical septum LV wall motion is hypokinetic. 8. The right ventricle is mildly enlarged. 9. LA is midly dilated 29-33ml/m2. 10. 5 ml of Lumason was utilized for enhancement of images. 11. The aortic valve is trileaflet, and appears structurally normal. No aortic stenosis or regurgitat ion. 12. There is trace mitral regurgitation. 13. Mild tricuspid regurgitation present. 14. Trace/mild (physiologic) pulmonic regurgitation. 15. There is no pericardial effusion. [employer]: Maddie Lozoya RDCS
[2021-03-18 10:53] LABS: Basophils % (A) 1 %; Eosinophils # (A) 0.2 k/uL (0-0.7); Eosinophils % (A) 3 %; HGB 12.8 gm/dL (13.0-17.5); Lymphocytes # (A) 1.1 k/uL (1.0-4.8); Lymphocytes % (A) 16 %; MCH 31.7 pg (25.0-35.0); MCHC 33.7 g/dL (31.0-37.0); MCV 94.1 fL (80.0-100.0); Mean Platelet Volume 9.6; Monocytes # (A) 0.5 k/uL (0-1.0); Monocytes % (A) 8 %; Neutrophils # (A) 4.7 k/uL (1.3-7.7); Neutrophils % (A) 71 %; Platelet Count 197 k/uL (150-450); RBC 4.04 m/uL (4.30-5.90); RDW 12.4 % (11.5-15.5); WBC 6.6 k/uL (3.8-10.6)
[2021-03-18 10:59] LABS: INR 1.1 (<1.2); Partial Thromboplastin Time 26.5 sec (22.0-30.0); Prothrombin Time 11.2 sec (9.0-12.0)
--- NOTE | 2021-03-18 11:03 | P.PN ---
Progress Note - Text Progress Note Date: 03/18/21 I saw and evaluated the patient independently. I agree with the documented assessment and plan by my colleague from earlier this morning. Echo showed mildly depressed EF with WMA. Pts troponins have increased to 0.196. Start heparin gtt, continue ASA, statin. Nitro PRN for pain.
[2021-03-18] MEDS: ATORVASTATIN 40 MG TAB PO SCH (11:34)
[2021-03-18] MEDS: SPIRONOLACTONE 25 MG TAB PO SCH (11:34)
[2021-03-18] MEDS: LOSARTAN 50 MG TAB PO SCH (11:34)
[2021-03-18] MEDS: HEPARIN SOD,PORK IN 0.45% NACL 25,000 UNIT in 0.45% NACL 1 250ML.BAG IV SCH (11:36)
[2021-03-18] MEDS: METOPROLOL TARTRATE 12.5 MG TAB PO SCH (11:39)
--- NOTE | 2021-03-18 13:16 | CONS ---
CONSULTATION This is a 75-year-old gentleman with type 2 diabetes, hypertension, ischemic cardiomyopathy, prior PCI and bypass surgery. He also has paroxysmal atrial fibrillation but has been maintaining sinus rhythm. He has some underlying sick sinus syndrome, and therefore beta blockers have been held for him. He came into the hospital last night, brought in by the EMS. Apparently he did a lot of yard work and felt a bit exhausted. He went to bed, woke up with discomfort in the right arm and chest. Quality of pain does not seem ischemic. He also had tingling in the right arm. He felt very concerned, then checked his pulse oximeter and heart rate was 200. He called EMS. EMS also thought the heart rate was 200, but when they documented it on the run sheet, the heart rate was 74. He is in sinus rhythm. He is completely asymptomatic today. He just feels exhausted since he did not sleep well. He has multiple issues and his recent echocardiogram from February 02 revealed a fairly decent ejection fraction of about 45% with inferoseptal and anteroapical hypokinetic areas without pulmonary hypertension. He had a Lexiscan stress test which revealed anteroapical and inferoapical hypokinesia with fixed defect but no reversible defect. Ejection fraction was in the 40% range. He is resting comfortably without symptoms. His EKG revealed a sinus mechanism with evidence of anterior poor R-wave progression and old anterior WI with QS pattern and nonspecific ST-T changes and leftward axis. His laboratory data suggest that troponin started at 0.129 and is now 0.203. Patient's Eliquis has been held and I am recommending that we place him on a heparin drip for now. He is resting comfortably without symptoms. PAST MEDICAL HISTORY: 1. 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 2. Ischemic cardiomyopathy with prior WI, PCI and bypass surgery. 3. Paroxysmal atrial fibrillation, maintaining sinus rhythm. 4. Hypertension. 5. Hyperlipidemia. MEDICATIONS: Medications at home include metformin, Aldactone 25 mg daily, insulin. He takes 8 mg of candesartan, atorvastatin 40 mg daily, aspirin 81 mg daily, apixaban 5 mg b.i.d., albuterol inhaler and Xanax. ALLERGIES: NO KNOWN DRUG ALLERGIES. PHYSICAL EXAMINATION: On examination, blood pressure is 130/70. Pulse rate is 55 per minute and appears to be regular. HEENT unremarkable. Fundus was not examined by me. Neck is supple. There is no JVD. I do not hear a carotid bruit. Heart exam reveals S1, S2 with a 1/6 ejection systolic murmur at left sternal border. Lungs are clear. ABDOMEN: Soft, nontender. Lower extremities reveal palpable pulses. Central nervous system is grossly within normal limits. IMPRESSION: 1. Probable paroxysmal atrial fibrillation, not documented, with elevated troponin. 2. [id number] myocardial infarction. 3. Ischemic cardiomyopathy. 4. Known paroxysmal atrial fibrillation. 5. Type 2 diabetes. 6. Hypertension. 7. Hyperlipidemia. RECOMMENDATIONS: I am recommending that we continue IV heparin for now. Hold Eliquis. Perform additional troponins and obtain echocardiogram. Based on clinical course, I will make further recommendations. I discussed my thoughts in detail with the patient. Thank you very much for the consult. ANNE / TERRY: [id number] /
[2021-03-18 13:25] LABS: Glucose,Whole Blood 108 mg/dL (75-99)
[2021-03-18] MEDS ORDERED: ARTIFICIAL TEARS-HYPROMELLOSE DROPS 15 ML BTL BOTH EYES PRN (15:25)
[2021-03-18] MEDS ORDERED: guaiFENesin 600 MG TABLET.ER PO PRN (15:25)
[2021-03-18] MEDS ORDERED: ALBUTEROL NEBULIZED 2.5 MG/3 ML INHALATION PRN (15:25)
[2021-03-18] MEDS ORDERED: ALPRAZolam 0.25 MG TAB PO PRN (15:25)
[2021-03-18 17:45] LABS: Glucose,Whole Blood 318 mg/dL (75-99)
[2021-03-18] MEDS: INSULN ASP PRT/INSULIN ASPART 100 UNIT/ML 10 ML VIAL SQ SCH ×2 (17:53→18:57)
[2021-03-18] MEDS: INSULIN ASPART (NovoLOG) 100 UNIT/ML VIAL SQ SCH (17:53)
[2021-03-18] MEDS: SYMBICORT 80-4.5 MCG INHALER INHALATION SCH (20:58)
[2021-03-18] MEDS: SENNOSIDES 8.6 MG TAB PO SCH (21:04)
[2021-03-18] MEDS: CITALOPRAM HYDROBROMIDE 20 MG TAB PO SCH (21:04)
[2021-03-18] MEDS: TAMSULOSIN 0.4 MG CAP.ER.24H PO SCH (21:04)
[2021-03-18] MEDS: MULTIVITAMINS, THERA 1 EACH TAB PO SCH (21:05)
[2021-03-19 06:23] LABS: Glucose,Whole Blood 136 mg/dL (75-99)
[2021-03-19] MEDS: FINASTERIDE 5 MG TAB PO SCH (07:05)
[2021-03-19] MEDS: LOSARTAN 50 MG TAB PO SCH (07:05)
[2021-03-19] MEDS: INSULIN ASPART (NovoLOG) 100 UNIT/ML VIAL SQ SCH ×3 (07:05→16:49)
[2021-03-19] MEDS: TAMSULOSIN 0.4 MG CAP.ER.24H PO SCH ×2 (07:05→19:59)
[2021-03-19] MEDS: ATORVASTATIN 40 MG TAB PO SCH (07:05)
[2021-03-19] MEDS: ASPIRIN 81 MG PO SCH (07:05)
[2021-03-19] MEDS: HEPARIN SOD,PORK IN 0.45% NACL 25,000 UNIT in 0.45% NACL 1 250ML.BAG IV SCH (07:06)
[2021-03-19] MEDS: MONTELUKAST 10 MG TAB PO SCH (07:06)
[2021-03-19] MEDS: METOPROLOL TARTRATE 12.5 MG TAB PO SCH ×2 (07:06→11:19)
[2021-03-19 07:58] LABS: Basophils % (A) 0 %; Eosinophils # (A) 0.1 k/uL (0-0.7); Eosinophils % (A) 1 %; HCT 42.5 % (39.0-53.0); HGB 13.4 gm/dL (13.0-17.5); Lymphocytes # (A) 1.3 k/uL (1.0-4.8); Lymphocytes % (A) 14 %; MCH 30.6 pg (25.0-35.0); MCHC 31.6 g/dL (31.0-37.0); Mean Platelet Volume 9.6; Monocytes # (A) 0.5 k/uL (0-1.0); Monocytes % (A) 6 %; Neutrophils # (A) 6.6 k/uL (1.3-7.7); Neutrophils % (A) 76 %; Platelet Count 231 k/uL (150-450); RBC 4.38 m/uL (4.30-5.90); WBC 8.7 k/uL (3.8-10.6)
[2021-03-19 08:16] LABS: Partial Thromboplastin Time 34.5 sec (22.0-30.0); Prothrombin Time 10.8 sec (9.0-12.0)
[2021-03-19] MEDS: SYMBICORT 80-4.5 MCG INHALER INHALATION SCH ×2 (08:20→20:26)
[2021-03-19] MEDS ORDERED: ASPIRIN 325 MG TAB PO SCH (09:00)
[2021-03-19 09:20] LABS: Calcium 9.1 mg/dL (8.4-10.2); Potassium 4.4 mmol/L (3.5-5.1)
[2021-03-19 12:02] LABS: Glucose,Whole Blood 155 mg/dL (75-99)
[2021-03-19] MEDS ORDERED: LIDOCAINE 1% INJ 10MG/ML (20 ML MDV) ONE (12:29)
[2021-03-19] MEDS ORDERED: IV FLUID CONTINUATION 1,000 ML IV ONE (12:50)
[2021-03-19] MEDS ORDERED: LIDOCAINE 1% INJ 10MG/ML (20 ML MDV) SQ ONE ×2 (12:59)
[2021-03-19] MEDS ORDERED: MIDAZOLAM 2 MG/2 ML VIAL IV ONE (12:59)
[2021-03-19] MEDS ORDERED: NITROGLYCERIN 1000MCG/10ML SYRINGE INTRACORON ONE (13:15)
[2021-03-19] MEDS ORDERED: IOPAMIDOL-370 100ML BTL INJ ONE (13:16)
[2021-03-19] MEDS ORDERED: HYDROmorphone 0.5 MG/0.5 ML SYRINGE IVP ONE (13:21)
--- NOTE | 2021-03-19 13:26 | PN ---
PROGRESS NOTE HISTORY: Mr. Friedman is a gentleman with a history of diabetes, mild kidney dysfunction, hypertension, hyperlipidemia, CAD, prior RI and PCI and bypass surgery in 2017. He came into the hospital yesterday. He has troponin elevation. He is resting comfortably. No further symptoms. He reported a heart rate of over 200, but his heart rate documented was in the 70s. He actually has underlying sick sinus syndrome. He is in sinus rhythm. I started him on a small dose of beta jack. Heart rate is good. Blood pressure is good. He has no further chest pain, but because of his known CAD, multiple risk factors, and non ST elevation RI, I am recommending cardiac cath. The rationale, risks, benefits, options explained. Patient understands and wishes to proceed with the procedure that will be performed today. I will perform procedure from right femoral approach given the fact he has vein graft and RODRIGUES. The same medical regimen for now. MMODL / IJN: [id number] /
[2021-03-19 14:29] LABS: Chol/HDL Ratio 2.05 Ratio; HDL Cholesterol 60.4 mg/dL (40.00-60.00); LDL Cholesterol,Calculated 45.2 mg/dL (0.0-131.0); Triglycerides 91.8 mg/dL (0.00-149.00); VLDL Calculation 18.36 mg/dL (5.00-40.00)
[2021-03-19] MEDS: INSULN ASP PRT/INSULIN ASPART 100 UNIT/ML 10 ML VIAL SQ SCH ×2 (14:45→17:24)
--- NOTE | 2021-03-19 15:00 | CC ---
CARDIAC CATHETERIZATION REPORT DATE OF SERVICE: 03/19/2021 PROCEDURE: Left heart catheterization, coronary angiography, selective injection of bypass grafts and left internal mammary artery injection. PERFORMED BY: Dr. Amanda Pritchett. Moderate conscious sedation time was 26 minutes. Patient was administered Versed. Oxygen saturation, hemodynamics and EKG were monitored closely. CLINICAL INFORMATION: Mr. Ricky Friedman is a 75-year-old gentleman with a known history of diabetes with mild kidney disease, hypertension, hypercholesterolemia, previous myocardial infarction with multivessel stenting. In 2017, because of significant progression of disease, in December he underwent aortocoronary bypass surgery with RODRIGUES to LAD that was stented before, a separate vein graft to the obtuse marginal branch of circumflex, and PDA of RCA. Following the bypass surgery 48 hours later, I performed a cardiac cath because of an episode of an arrhythmia and hypotension. At that time grafts were patent. This time he came into the hospital with a prolonged episode of chest pain after doing some heavy physical work outside. Troponin was elevated. He was comfortable. He also has a sick sinus syndrome and was not on beta blockers, but I started him on a small dose of metoprolol tartrate 25 mg daily and recommended cardiac cath after due discussion regarding risks, benefits and options. PROCEDURE NOTE: Under local anesthesia and strict aseptic precautions, a 6-German introducer was placed in the right femoral artery. Using a JL4 catheter, I performed selective coronary angiography of the left coronary artery. Using a Maximiliano catheter, I did selective injection of the 2 vein grafts and the RODRIGUES. I did not inject the [place] RCA, which was already occluded in the previous catheterization. I used a pigtail catheter to check LV pressure, but LV gram was not performed. The patient tolerated procedure well without complication. He was sent to the room in stable condition and the details were discussed with the patient, but I did not speak to any family. I expect to talk to his at 2:30 p.m. today when she has an appointment with me in the office. CARDIAC CATHETERIZATION FINDINGS: The left ventricular end-diastolic pressure was 12 mmHg without any gradient across the aortic valve. CORONARY ANGIOGRAPHY FINDINGS: RIGHT CORONARY ARTERY: The right coronary artery was not injected and was totally occluded in the previous cardiac cath. LEFT MAIN CORONARY ARTERY: This is a short patent vessel, has some ostial disease of about 20% to 30%, and then bifurcates into LAD and circumflex. LEFT ANTERIOR DESCENDING CORONARY ARTERY: This is totally occluded in the proximal portion after a small septal branch. LEFT POSTERIOR CIRCUMFLEX CORONARY ARTERY: Technically a nondominant vessel that gives off a good-sized obtuse marginal that has a 95% stenosis and has competitive flow. Continuation of circumflex in the AV groove has mild diffuse disease throughout, but no significant obstruction. SAPHENOUS VEIN GRAFT TO THE OBTUSE MARGINAL BRANCH OF CIRCUMFLEX: This graft is widely patent at its origin, course and insertion site. Opacified obtuse marginal is also free of significant disease and has 2 secondary branches opacified, has minor irregularities. SAPHENOUS VEIN GRAFT TO THE PDA BRANCH OF RCA: This graft is widely patent at its origin, course and insertion site and opacified PDA is also free of significant disease but has minor irregularities. LEFT INTERNAL MAMMARY ARTERY GRAFT TO LAD: This graft is attached somewhat distally because of mid LAD stents. The graft is widely patent with good flow. After I gave nitroglycerin, the flow in the graft improved a lot. The mid LAD segment appears to be filled as well by the RODRIGUES graft, but there is also some competitive filling of this area by the PDA as well. This may be an area of ischemia and a watershed area which may be responsible for patient's recent [id number] TN. Mid LAD therefore has diffuse disease and is being filled both by the RODRIGUES and also by the PDA graft as well. LEFT VENTRICULOGRAM: Left ventriculogram was not performed. FINAL IMPRESSION: This patient has normal filling pressures, total occlusion of LAD and RCA. Saphenous vein grafts to the obtuse marginal and PDA branch of RCA are patent. The PDA in fact fills the mid LAD segment. RODRIGUES to the mid/distal LAD is widely patent, and after I gave some nitroglycerin, the flow into the mid LAD improved. Left ventriculogram was not performed. RECOMMENDATIONS: We will continue medical therapy, add Imdur 30 mg daily to his regimen and 12.5 mg of metoprolol tartrate in the morning. Patient will be hydrated and discharged tomorrow after obtaining a CBC and BMP in the morning. Results were discussed with the patient and he will be discharged tomorrow. MMODL / IJN: [id number] /
--- NOTE | 2021-03-19 15:13 | P.PN ---
Subjective Progress Note Date: 03/19/21 No significant events overnight, patient has been hemodynamically stable. He denies any chest pain, no chest pressure, no shortness of breath, no palpitations. He has been nothing by mouth since midnight in preparation for a cardiac catheterization today Objective - Vital Signs Vital signs: Vital Signs Temp 97.8 F 03/19/21 12:00 Pulse 67 03/19/21 12:00 Resp 18 03/19/21 12:00 BP 152/71 03/19/21 12:00 Pulse Ox 91 L 03/19/21 12:00 Intake & Output 03/18/21 03/19/21 03/19/21 18:59 06:59 18:59 Intake Total 64 90.882 489.888 Balance 64 90.882 489.888 Weight 95.5 kg Intake: IV 100 Intake, IV Titration 64 90.882 389.888 Amount Heparin Sod,Pork in 0.45% 64 90.882 89.888 NaCl 25,000 unit In 0.45 % NaCl 1 250ml.bag @ 10. 35 UNITS/KG/HR 10 mls/hr IV .Q24H LUCIANA Rx#: [id number] Sodium Chloride 0.9% 1, 300 000 ml @ 20 mls/hr IV . Q24H LUCIANA Rx#:[id number] Other: # Voids 1 3 - Exam General: non toxic, no distress, appears at stated age, obese Head: atraumatic, normocephalic, symmetric Eyes: EOMI, anicteric sclera, pupils equal round reactive to light ENT: Nose and ears atraumatic, no thrush, no pharyngeal erythema Neck: No thyromegaly, no cervical lymphadenopathy, trachea midline, supple Mouth: no lip lesion, mucus membranes moist Cardiovascular: S1S2 reg, no murmur, positive posterior tibial pulse bilateral, no edema, capillary refill less than 2 seconds Lungs: CTA bilateral, no rhonchi, no rales , no accessory muscle use Abdominal: soft, nontender to palpation, no guarding, no appreciable organomegaly, normal bowel sounds Ext: no gross muscle atrophy, muscle strength 5 out of 5 in all 4 extremities grossly, no contractures, - Labs CBC & Chem 7: 03/19/21 07:30 03/19/21 07:30 Labs: Abnormal Lab Results - Last 24 Hours (Table) 09/30/21 09/30/21 10/01/21 Range/Units 17:21 17:44 01:00 APTT 40.9 H 60.5 H (22.0-30.0) sec BUN (9-20) mg/dL Glucose (74-99) mg/dL POC Glucose (mg/dL) 318 H (75-99) mg/dL Troponin I (0.000-0.034) ng/mL HDL Cholesterol (40.00-60.00) mg/dL 03/19/21 03/19/21 03/19/21 Range/Units 06:22 07:30 07:30 APTT 34.5 H (22.0-30.0) sec BUN (9-20) mg/dL Glucose (74-99) mg/dL POC Glucose (mg/dL) 136 H (75-99) mg/dL Troponin I (0.000-0.034) ng/mL HDL Cholesterol 60.40 H (40.00-60.00) mg/dL 03/19/21 03/19/21 03/19/21 Range/Units 07:30 07:30 12:00 APTT (22.0-30.0) sec BUN 21 H (9-20) mg/dL Glucose 153 H (74-99) mg/dL POC Glucose (mg/dL) 155 H (75-99) mg/dL Troponin I 0.076 H* (0.000-0.034) ng/mL HDL Cholesterol (40.00-60.00) mg/dL Assessment and Plan Plan: # NSTEMI -Troponins have been slightly elevated and trending up -Patient has a known history of coronary artery disease, CABG in the past -Currently on heparin drip, aspirin -Plan for cardiac catheterization today per cardiology -Denies any chest pain, EKG shows no ST elevation -Troponin may have been elevated due to type II, in the setting of tachycardia # Ischemic cardiomyopathy -Ejection fraction 40-45% with hypokinetic LV per last 2-D echo -Appears to be compensated, no signs of overt heart failure -Avoid fluid overload -Water and salt resections # Diabetes mellitus 2 -Continue Lantus plus insulin sliding-scale # Hypertension -Controlled with home meds # Hyperlipidemia -Continue statin Anticipated discharge home tomorrow Time with Patient: Greater than 30
[2021-03-19] MEDS: ISOSORBIDE MONONITRATE ER 30 MG TAB.ER.24H PO SCH (15:15)
[2021-03-19] MEDS: SPIRONOLACTONE 25 MG TAB PO SCH (15:16)
[2021-03-19] MEDS: SODIUM CHLORIDE 0.9% 1,000 ML IV SCH ×2 (15:16→18:04)
[2021-03-19 16:20] LABS: Glucose,Whole Blood 323 mg/dL (75-99)
[2021-03-19] MEDS: SENNOSIDES 8.6 MG TAB PO SCH (19:59)
[2021-03-19] MEDS: MULTIVITAMINS, THERA 1 EACH TAB PO SCH (19:59)
[2021-03-19] MEDS: CITALOPRAM HYDROBROMIDE 20 MG TAB PO SCH (19:59)
[2021-03-19 20:46] LABS: Glucose,Whole Blood 105 mg/dL (75-99)
[2021-03-20] MEDS: SODIUM CHLORIDE 0.9% 1,000 ML IV SCH ×2 (04:37→07:25)
[2021-03-20 06:12] LABS: Glucose,Whole Blood 132 mg/dL (75-99)
[2021-03-20] MEDS: INSULIN ASPART (NovoLOG) 100 UNIT/ML VIAL SQ SCH ×2 (07:14→12:10)
[2021-03-20] MEDS: INSULN ASP PRT/INSULIN ASPART 100 UNIT/ML 10 ML VIAL SQ SCH (07:24)
[2021-03-20] MEDS: SYMBICORT 80-4.5 MCG INHALER INHALATION SCH (07:45)
[2021-03-20 09:02] LABS: Basophils % (A) 0 %; Eosinophils # (A) 0.1 k/uL (0-0.7); Eosinophils % (A) 2 %; HCT 38.2 % (39.0-53.0); HGB 11.9 gm/dL (13.0-17.5); Lymphocytes # (A) 0.8 k/uL (1.0-4.8); Lymphocytes % (A) 11 %; MCH 30.6 pg (25.0-35.0); MCHC 31.3 g/dL (31.0-37.0); Mean Platelet Volume 9.7; Monocytes # (A) 0.4 k/uL (0-1.0); Monocytes % (A) 6 %; Neutrophils # (A) 5.6 k/uL (1.3-7.7); Neutrophils % (A) 79 %; Platelet Count 182 k/uL (150-450); RBC 3.89 m/uL (4.30-5.90); RDW 12.1 % (11.5-15.5)
[2021-03-20] MEDS: FINASTERIDE 5 MG TAB PO SCH (09:08)
[2021-03-20] MEDS: MONTELUKAST 10 MG TAB PO SCH (09:08)
[2021-03-20] MEDS: TAMSULOSIN 0.4 MG CAP.ER.24H PO SCH (09:08)
[2021-03-20] MEDS: LOSARTAN 50 MG TAB PO SCH (09:08)
[2021-03-20] MEDS: ASPIRIN 81 MG PO SCH (09:08)
[2021-03-20] MEDS: SPIRONOLACTONE 25 MG TAB PO SCH (09:08)
[2021-03-20] MEDS: ISOSORBIDE MONONITRATE ER 30 MG TAB.ER.24H PO SCH (09:08)
[2021-03-20] MEDS: ATORVASTATIN 40 MG TAB PO SCH (09:08)
[2021-03-20] MEDS: METOPROLOL TARTRATE 12.5 MG TAB PO SCH (09:10)
[2021-03-20 09:24] LABS: Calcium 8.4 mg/dL (8.4-10.2); Magnesium 2.2 mg/dL (1.6-2.3); Potassium 4.6 mmol/L (3.5-5.1)
--- NOTE | 2021-03-20 10:34 | PN ---
PROGRESS NOTE Mr. Friedman is a gentleman with history of diabetes, hypertension, hyperlipidemia, CAD, prior bypass surgery and myocardial infarction. He came in with a [id number] MN. Cardiac cath revealed that patent grafts were there. I added Imdur 30 mg daily and also metoprolol tartrate 12.5 mg daily. His right groin is clean and dry. Vitals are stable. No JVD or carotid bruit. S1, S2 heard normally. Short systolic murmur. Clear lungs. Abdomen and lower extremity exam unchanged. Right groin is clean and dry. Patient can be discharged today and I will see him in the office on March 23 in the morning. To call for questions. MMODL / IJN: [id number] /
[2021-03-20 11:42] VITALS: BP 105/58; PULSE 45; RESP 18; TEMP 97.9
[2021-03-20 11:46] LABS: Glucose,Whole Blood 293 mg/dL (75-99)
--- NOTE | 2021-03-21 15:20 | P.DS ---
Providers Date of admission: 03/19/21 11:24 Expected date of discharge: 03/20/21 Attending physician: Víctor Mccormick MD Consults: 03/18/21 01:46 Consult Physician Urgent Consulting Provider: Promise Vines Consult Reason/Comments: cp Do you want consulting provider notified?: Yes Primary care physician: Promise Pierce MD - Discharge Diagnosis(es) (1) NSTEMI (non-ST elevated myocardial infarction) Status: Acute Priority: High Hospital Course: HPI from admission: Patient is a 76-year-old male with an extensive coronary artery disease history including multiple stents and CABG, chronic hypoxic respiratory failure on home O2 continuously, hypertension, hyperlipidemia, type II DM, and BPH who presented to the emergency room for chest pain, shortness of breath, and palpitations. Patient reports that he was trying to go to bed at his usual 11 PM when he suddenly developed shortness of breath and acute substernal chest and right arm pain. The pain was 8 out of 10 on maximal intensity, constant, with associated lightheadedness, and palpitations. The patient checked his SpO2 which read as 97 with a pulse of 202. The patient immediately activated EMS and upon arrival at the scene also noted his pulse to be 210. The EMS gave the patient sublingual nitro and when they obtained an EKG, the patient had reverted to sinus rhythm. In the emergency room, at time of evaluation the patient reported that his chest and arm discomfort had resolved. He noted that they resolved en-route to the hospital. He denied fever, chills, nausea, vomiting, abdominal pain. He denied headaches, visual disturbances, weakness, numbness, tingling. Chest x-ray in the emergency room revealed mild atelectasis but otherwise unremarkable. EKG revealed sinus rhythm with first degree AV block with left anterior fascicular block at 66 bpm. Laboratory evaluation was remarkable for troponin of 0.025 and a proBNP of 244. Hospital course: patient presented with chest pain, elevated troponin, but no EKG changes. He has a long Hx of CAD, troponins were trended, began to rise slightly before decreasing. He was started on a Heparin drip, ASA. Cardiac cath did not reveal any significant stenosis, EF 40-45%, he was receiving IV lasix although there were no overt signs of CHF exacerbation. He was started on Lopressor and Imdur, nitro prn. troponin was most likely elevated due to type II PR in the setting of tachycardia. patient was eventually discharged the second day home in stable condition. follow up with cardiology within the next 1-2 weeks Assessment: General: non toxic, no distress, appears at stated age, obese Head: atraumatic, normocephalic, symmetric Eyes: EOMI, anicteric sclera, pupils equal round reactive to light ENT: Nose and ears atraumatic, no thrush, no pharyngeal erythema Neck: No thyromegaly, no cervical lymphadenopathy, trachea midline, supple Mouth: no lip lesion, mucus membranes moist Cardiovascular: S1S2 reg, no murmur, positive posterior tibial pulse bilateral, no edema, capillary refill less than 2 seconds Lungs: CTA bilateral, no rhonchi, no rales , no accessory muscle use Abdominal: soft, nontender to palpation, no guarding, no appreciable organomegaly, normal bowel sounds Ext: no gross muscle atrophy, muscle strength 5 out of 5 in all 4 extremities grossly, no contractures, Patient Condition at Discharge: Good Plan - Discharge Summary Discharge Rx Participant: Yes New Discharge Prescriptions: New Isosorbide Mononitrate ER [Imdur] 30 mg PO DAILY 30 Days #30 tablet Metoprolol Tartrate [Lopressor] 12.5 mg PO DAILY 30 Days #30 tab Nitroglycerin Sl Tabs [Nitrostat] 0.4 mg SUBLINGUAL Q5M PRN #25 tab PRN Reason: Chest Pain Continue Multivitamins, Thera [Multivitamin (formulary)] 1 tab PO HS Citalopram Hydrobromide [CeleXA] 40 mg PO HS Aspirin EC [Ecotrin Low Dose] 81 mg PO HS Apixaban [Eliquis] 5 mg PO BID tab Atorvastatin [Lipitor] 40 mg PO DAILY tab Tamsulosin [Flomax] 0.4 mg PO BID cap.er.24h Insulin NPH Hum/Reg Insulin Hm [NovoLIN 70-30 100 UNIT/ML VIAL] 50 unit SQ AC-BRKFST Insulin NPH Hum/Reg Insulin Hm [NovoLIN 70-30 100 UNIT/ML VIAL] 35 unit SQ AC-SUPPER Spironolactone [Aldactone] 25 mg PO DAILY Sennosides [Senna] 17.2 mg PO HS Candesartan Cilexetil 8 mg PO DAILY Finasteride [Proscar] 5 mg PO DAILY Montelukast [Singulair] 10 mg PO DAILY Albuterol Sulfate [Ventolin HFA] 1 - 2 puff INHALATION RT-Q6H PRN PRN Reason: Shortness Of Breath ALPRAZolam [Xanax] 0.25 mg PO TID PRN PRN Reason: Anxiety guaiFENesin [Mucinex] 600 mg PO BID PRN PRN Reason: Cough metFORMIN HCL 1,000 mg PO BID Mometasone/Formoterol [Dulera 100 Mcg-5 Mcg Inhaler] 2 puff PO RT-BID Discontinued Artificial Tears-Hypromellose [Artificial Tear Drops] 1 drop BOTH EYES QID PRN PRN Reason: Dry Eye(S) Discharge Medication List Aspirin EC [Ecotrin Low Dose] 81 mg PO HS 03/21/14 [History] Citalopram Hydrobromide [CeleXA] 40 mg PO HS 03/21/14 [History] Multivitamins, Thera [Multivitamin (formulary)] 1 tab PO HS 03/21/14 [History] Apixaban [Eliquis] 5 mg PO BID tab 01/19/18 [Rx] Atorvastatin [Lipitor] 40 mg PO DAILY tab 01/19/18 [Rx] Tamsulosin [Flomax] 0.4 mg PO BID cap.er.24h 01/19/18 [Rx] Insulin NPH Hum/Reg Insulin Hm [NovoLIN 70-30 100 UNIT/ML VIAL] 35 unit SQ AC- SUPPER 02/05/18 [History] Insulin NPH Hum/Reg Insulin Hm [NovoLIN 70-30 100 UNIT/ML VIAL] 50 unit SQ AC- BRKFST 02/05/18 [History] Sennosides [Senna] 17.2 mg PO HS 07/06/18 [History] Spironolactone [Aldactone] 25 mg PO DAILY 07/06/18 [History] ALPRAZolam [Xanax] 0.25 mg PO TID PRN 03/18/21 [History] Albuterol Sulfate [Ventolin HFA] 1 - 2 puff INHALATION RT-Q6H PRN 03/18/21 [History] Candesartan Cilexetil 8 mg PO DAILY 03/18/21 [History] Finasteride [Proscar] 5 mg PO DAILY 03/18/21 [History] Mometasone/Formoterol [Dulera 100 Mcg-5 Mcg Inhaler] 2 puff PO RT-BID 03/18/21 [History] Montelukast [Singulair] 10 mg PO DAILY 03/18/21 [History] guaiFENesin [Mucinex] 600 mg PO BID PRN 03/18/21 [History] metFORMIN HCL 1,000 mg PO BID 03/18/21 [History] Isosorbide Mononitrate ER [Imdur] 30 mg PO DAILY 30 Days #30 tablet 03/20/21 [Rx] Metoprolol Tartrate [Lopressor] 12.5 mg PO DAILY 30 Days #30 tab 03/20/21 [Rx] Nitroglycerin Sl Tabs [Nitrostat] 0.4 mg SUBLINGUAL Q5M PRN #25 tab 03/20/21 [Rx] Follow up Appointment(s)/Referral(s): Promise Pierce MD [Primary Care Provider] - 1-2 days (Please call during business hours to schedule follow up appointment. ) Elaine Pritchett MD [STAFF PHYSICIAN] - 1 Week (Please call during business hours to schedule follow up appointment. tell staff that Dr Pritchett wanted your follow up to be on Monday between and . ) Patient Instructions/Handouts: *Surgery [facility] - After Heart Catheterization - Cement Gun Operator Instructions, Angina (DC) Discharge Disposition: HOME SELF-CARE
== END 2021-03-20 14:56 | disposition home or self-care (01) | DRG 281 ==
LOC: EC 00:22 → 6NMEDSUR 01:47 → 3SCARD 12:09 → OBSVTOIN 03-19 11:24
PROVIDERS: ADMIT Internal Medicine; ATTEND Internal Medicine
PROC: B2131ZZ Fluoroscopy of Multiple Coronary Artery Bypass Grafts using Low Osmolar Contrast (ICD-10-PCS; principal; 2021-03-19 12:00)
PROC: B2111ZZ Fluoroscopy of Multiple Coronary Arteries using Low Osmolar Contrast (ICD-10-PCS; principal; 2021-03-19 12:00)
PROC: 4A023N7 Measurement of Cardiac Sampling and Pressure, Left Heart, Percutaneous Approach (ICD-10-PCS; principal; 2021-03-19 12:00)
DX: R00.0 Tachycardia, unspecified (principal); I21.A1 Myocardial infarction type 2; J96.11 Chronic respiratory failure with hypoxia; I49.5 Sick sinus syndrome; I25.10 Atherosclerotic heart disease of native coronary artery without angina pectoris; F41.9 Anxiety disorder, unspecified; F32.9 Major depressive disorder, single episode, unspecified; E78.5 Hyperlipidemia, unspecified; Z20.822 Contact with and (suspected) exposure to COVID-19; I10 Essential (primary) hypertension; E11.9 Type 2 diabetes mellitus without complications; I44.4 Left anterior fascicular block; I48.0 Paroxysmal atrial fibrillation; I25.82 Chronic total occlusion of coronary artery; I25.5 Ischemic cardiomyopathy; N40.0 Benign prostatic hyperplasia without lower urinary tract symptoms; I44.0 Atrioventricular block, first degree; I25.2 Old myocardial infarction; Z79.84 Long term (current) use of oral hypoglycemic drugs; Z79.899 Other long term (current) drug therapy; Z83.3 Family history of diabetes mellitus; Z86.73 Personal history of transient ischemic attack (TIA), and cerebral infarction without residual deficits; Z95.1 Presence of aortocoronary bypass graft; Z95.5 Presence of coronary angioplasty implant and graft; Z99.81 Dependence on supplemental oxygen; Z79.82 Long term (current) use of aspirin; Z79.51 Long term (current) use of inhaled steroids; Z79.4 Long term (current) use of insulin; Z79.01 Long term (current) use of anticoagulants
CPT/HCPCS: 36415; 71046; 80048; 80053; 80061; 83690; 83735; 83880; 84484; 85025; 85610; 85730; 87635; 93005; 93306; 93459; 94640; 94760; 99285

== ENCOUNTER 2021-08-19 06:11 | Day surgery (SDC) | payer MEDICARE, BC ==
[2021-08-17 16:28] VITALS: BMI 31.0
--- NOTE | 2021-08-17 18:51 | P.GSHP ---
History of Present Illness H&P Date: 08/17/21 76 yo male recently identified with a prostate cancer, psa 5, size 21ml, G7[4+3], 5/ biopsies positive, left side. He has chosen EBRT with [facility]. He has received both firmagon 240 and 80mg. He comes for a space oar prior to commencement of ebrt.He will get a 45 mg lupron next month. - Constitutional Constitutional: Denies chills, Denies fever - EENT Eyes: denies blurred vision, denies pain Ears, nose, mouth and throat: Denies headache, Denies sore throat - Cardiovascular Cardiovascular: Denies chest pain, Denies shortness of breath - Respiratory Respiratory: Denies cough, Denies 7 - Gastrointestinal Gastrointestinal: Denies abdominal pain, Denies diarrhea, Denies nausea, Denies vomiting - Genitourinary (Female) Genitourinary: Denies dysuria, Denies hematuria - Genitourinary (Male) Genitourinary: Denies dysuria, Denies hematuria - Musculoskeletal Musculoskeletal: Denies myalgias - Integumentary Integumentary: Denies pruritus, Denies rash - Neurological Neurological: Denies numbness, Denies weakness - Psychiatric Psychiatric: Denies anxiety, Denies depression - Endocrine Endocrine: Denies fatigue, Denies weight change Past Medical History Past Medical History: Asthma, Coronary Artery Disease (CAD), CVA/TIA, Diabetes Mellitus, Hyperlipidemia, Hypertension, Myocardial Infarction ([place]), Osteoarthritis (OA), Prostate Disorder Additional Past Medical History / Comment(s): HX OF TIA, ENLARGED PROSTATE, [place] X3, BRONCHITS, SKIN CANCER , PROSTATE CANCER, SOME TROUBLE URINATING, Last Myocardial Infarction Date:: 10/01/2011 History of Any Multi-Drug Resistant Organisms: None Reported Past Surgical History: Coronary Bypass/CABG, Heart Catheterization With Stent, Hernia Repair Additional Past Surgical History / Comment(s): INGUINAL HERNIA, RT HEEL SURGERY WITH HARDWARE. BILATERAL CATARACTS. Past Anesthesia/Blood Transfusion Reactions: No Reported Reaction Additional Past Anesthesia/Blood Transfusion Reaction / Comment(s): no hx blood transfusion Date of Last Stent Placement:: 10/01/2011 Past Psychological History: No Psychological Hx Reported Smoking Status: Never smoker Past Alcohol Use History: None Reported Past Drug Use History: None Reported - Past Family History Mother Family Medical History: Cancer, Diabetes Mellitus Additional Family Medical History / Comment(s): pancreas Father Family Medical History: Cancer Medications and Allergies Home Medications Medication Instructions Recorded Confirmed Type Aspirin EC [Ecotrin Low Dose] 81 mg PO HS 03/21/14 08/17/21 History Citalopram Hydrobromide [CeleXA] 40 mg PO HS 03/21/14 08/17/21 History Multivitamins, Thera [Multivitamin 1 tab PO HS 03/21/14 08/17/21 History (formulary)] Apixaban [Eliquis] 5 mg PO BID tab 01/19/18 08/17/21 Rx Atorvastatin [Lipitor] 40 mg PO DAILY tab 01/19/18 08/17/21 Rx Tamsulosin [Flomax] 0.4 mg PO BID cap.er.24h 01/19/18 08/17/21 Rx Insulin NPH Hum/Reg Insulin Hm 30 unit SQ AC-SUPPER 02/05/18 08/17/21 History [NovoLIN 70-30 100 UNIT/ML VIAL] Insulin NPH Hum/Reg Insulin Hm 36 unit SQ AC-BRKFST 02/05/18 08/17/21 History [NovoLIN 70-30 100 UNIT/ML VIAL] Spironolactone [Aldactone] 25 mg PO DAILY 07/06/18 08/17/21 History ALPRAZolam [Xanax] 0.25 mg PO BID 03/18/21 08/17/21 History Albuterol Sulfate [Ventolin HFA] 1 - 2 puff INHALATION RT-Q6H PRN 03/18/21 08/17/21 History Candesartan Cilexetil 8 mg PO DAILY 03/18/21 08/17/21 History Finasteride [Proscar] 5 mg PO DAILY 03/18/21 08/17/21 History Mometasone/Formoterol [Dulera 100 2 puff PO RT-BID 03/18/21 08/17/21 History Mcg-5 Mcg Inhaler] Montelukast [Singulair] 10 mg PO DAILY 03/18/21 08/17/21 History guaiFENesin [Mucinex] 600 mg PO BID PRN 03/18/21 08/17/21 History metFORMIN HCL 1,000 mg PO BID 03/18/21 08/17/21 History Isosorbide Mononitrate ER [Imdur] 30 mg PO DAILY 30 Days #30 tablet 03/20/21 08/17/21 Rx Metoprolol Tartrate [Lopressor] 12.5 mg PO DAILY 30 Days #30 tab 03/20/21 08/17/21 Rx Nitroglycerin Sl Tabs [Nitrostat] 0.4 mg SUBLINGUAL Q5M PRN #25 tab 03/20/21 08/17/21 Rx Allergies Allergy/AdvReac Type Severity Reaction Status Date / Time No Known Allergies Allergy Verified 03/18/21 08:53 Surgical - Exam - General well developed, well nourished, no distress - Eyes normal ocular movement, no icteric - ENT no hearing loss, no congestion - Neck no masses, trachea midline - Respiratory normal respiratory effort, clear to auscultation - Abdomen Abdomen: soft, non tender, no guarding, no rigid, no rebound - Genitourinary benign prostate to exam - Integumentary no rash, no abnormal pigmentation - Neurologic no disoriented, no combative - Psychiatric oriented to time, oriented to person, oriented to place, speech is normal, memory intact Assessment and Plan Assessment: Impression: Prostate cancer, G7[4+3], 5 left, 22 ml prostate for space oar Plan: Space oar.
[~2021-08-19 06:11] MED LIST changes: -ALBUMIN HUMAN 25% 50 ML IV ONE; -ALBUMIN HUMAN 5% 500 ML IVPB ONE; -ASPIRIN 325 MG TAB PO ONE; -ATORVASTATIN 10 MG TAB PO ONE; -CALCIUM CHLORIDE 100 MG/ML 10 ML SYRINGE IV ONE; -CHLORHEXIDINE GLUCONATE 15 ML CUP MUCOUS MEM ONE; -CLEVIDIPINE BUTYRATE 25 MG in EMPTY BAG 1 BAG IV ONE; +DEXAMETHASONE SOD PHOSPHATE 4 MG/ML 1 ML VIAL IV ONE; -DEXTROSE 5% IN WATER 1,000 ML with POTASSIUM CHLORIDE 110 MEQ, MAGNESIUM SULFATE 16 MEQ... IV ONE; -DEXTROSE 5% IN WATER 1,000 ML with POTASSIUM CHLORIDE 25 MEQ, SODIUM CHLORIDE 2.5MEQ/ML... IRRIGATION ONE; -HEPARIN SODIUM 1,000 UN/ML (10ML VL) IV ONE; -HEPARIN SODIUM,PORCINE 5,000 UNIT in SODIUM CHLORIDE 0.9% 500 ML IV ONE; -INSULIN REGULAR 100 UNIT in SODIUM CHLORIDE 0.9% 100 ML IV ONE; -LACTATED RINGERS 1,000 ML IV ONE; +LACTATED RINGERS 1,000 ML IV SCH; +LIDOCAINE 1% (10MG/ML) FOR IV START INTRADERMA PRN; -MAGNESIUM SULFATE MG 500 MG/ML VIAL IV ONE; -MANNITOL 25% 12.5 GM/50 ML VIAL IV ONE; -METOPROLOL TARTRATE 12.5 MG TAB PO ONE; +MIDAZOLAM 2 MG/2 ML VIAL IV PRN; -MUPIROCIN 2% OINT 22 GM TUBE NASAL ONE; -NITROGLYCERIN SL TABS 0.4 MG TAB SUBLINGUAL ONE; -NITROGLYCERIN-D5W PMX 25 MG/250 ML BTL IV ONE; -NITROGLYCERIN-D5W PMX 50 MG in DEXTROSE/WATER 1 250ML.BAG IV ONE; -NOREPINEPHRINE 4 MG in DEXTROSE 5% IN WATER 250 ML IV ONE; +ONDANSETRON 4 MG/2 ML VIAL IVP ONE; -PAPAVERINE 360 MG in SODIUM CHLORIDE 0.9% 90 ML IV ONE; -PHENYLEPHRINE 40 MG in SODIUM CHLORIDE 0.9% 250 ML IV ONE; -PHENYLEPHRINE-0.9% NACL SYG 1 MG/10 ML SYRINGE IV ONE; -PROPOFOL 1,000 MG/100 ML VIAL IV ONE; -PROTAMINE SULFATE 10 MG/ML 25 ML VIAL IV ONE; -PROTAMINE SULFATE 250 MG in EMPTY BAG 1 BAG IV ONE; -SODIUM BICARB 8.4% 50 ML SYR (1 MEQ/ML) IV ONE; -SODIUM CHLORIDE 0.9% 1,000 ML IV ONE; -TRANEXAMIC ACID 2,000 MG in SODIUM CHLORIDE 0.9% 180 ML IV ONE; -ceFAZolin 1,000 MG in SODIUM CHLORIDE 0.9% IRRIGATIO 1,000 ML IRRIGATION ONE; -ceFAZolin 2,000 MG in SODIUM CHLORIDE 0.9% 30 ML IVPB ONE
[2021-08-19] MEDS ORDERED: HYDROmorphone 0.5 MG/0.5 ML SYRINGE IVP PRN (07:00)
[2021-08-19 07:21] LABS: Glucose,Whole Blood 125 mg/dL (75-99)
[2021-08-19] MEDS ORDERED: KETAMINE 10 MG/ML 20 ML VIAL ONE (07:35)
[2021-08-19] MEDS ORDERED: GLYCOPYRROLATE 0.2 MG/ML 2 ML VIAL ONE (07:35)
[2021-08-19] MEDS ORDERED: PROPOFOL 10 MG/ML 20 ML VIAL IV ONE (07:35)
[2021-08-19] MEDS ORDERED: MIDAZOLAM 2 MG/2 ML VIAL ONE (07:35)
[2021-08-19] MEDS ORDERED: fentaNYL (PF) 50 MCG/ML 2 ML AMP ONE (07:35)
[2021-08-19] MEDS ORDERED: LIDOCAINE 2% INJ 20 MG/ML SQ ONE (07:59)
--- NOTE | 2021-08-19 08:19 | P.OP ---
Date of Procedure: 08/19/21 Preoperative Diagnosis: Adenocarcinoma the prostate Postoperative Diagnosis: Same Procedure(s) Performed: SpaceOAR Implant Anesthesia: MAC Surgeon: Adolfo Arteaga Estimated Blood Loss (ml): 0 IV fluids (ml): 500 Pathology: none sent Condition: stable Disposition: PACU Indications for Procedure: 76 yo male recently identified with a prostate cancer, psa 5, size 21ml, G7[4+3], 5/12 biopsies positive, left side. He has chosen EBRT with [facility]. He now comes for SpaceOAR implant to reduce the risk of rectal toxicity. Operative Findings: Excellent separation created between the prostate and rectum. Description of Procedure: The patient was taken to the operating room and placed in the dorsolithotomy position, with his legs supported in Alex stirrups. The external genitalia was prepped and draped sterilely. The Bruel and Kjaer transrectal ultrasound probe was placed intrarectally. The prostate was imaged. The probe was then placed within the stabilizing stand. A spinal needle was advanced under ultrasonic guidance to the level of the urogenital diaphragm, and lidocaine was used to infiltrate the tissues as the needle was withdrawn. Next, the SpaceOAR needle was passed through the midline of the perineum, 1-2 cm anterior to the anal opening. The needle was slowly advanced under ultrasonic guidance until the needle tip was located within the fat plane between the prostate and rectum, at the level of the mid prostate gland. The needle was confirmed to be midline on the axial imaging. A small amount of normal saline was injected for hydrodissection. Next, the SpaceOAR components were mixed and loaded into the Y connector per protocol. The Y connector was then connected to the needle, and the components were injected slowly over a course of approximately 12 seconds. A total of 10 ml was injected. Significant distance was created between the prostate and rectum, as desired. It should be noted that at no point was there any concern of rectal perforation. The needle was withdrawn, as well as the transrectal ultrasound probe, and the procedure was terminated. The patient tolerated the procedure well and was taken to the recovery room in stable condition.
[2021-08-19 08:28] VITALS: TEMP 98
[2021-08-19] MEDS ORDERED: LACTATED RINGERS 1,000 ML IV ONE (08:36)
[2021-08-19 09:05] LABS: Glucose,Whole Blood 141 mg/dL (75-99)
[2021-08-19 09:17] VITALS: RESP 16
[2021-08-19 09:45] VITALS: BP 111/46; PULSE 57
== END 2021-08-19 10:03 | disposition home or self-care (01) ==
LOC: OR 06:11
PROVIDERS: ATTEND Urology
DX: C61 Malignant neoplasm of prostate (principal); I25.10 Atherosclerotic heart disease of native coronary artery without angina pectoris; E78.5 Hyperlipidemia, unspecified; I25.2 Old myocardial infarction; I10 Essential (primary) hypertension; J45.909 Unspecified asthma, uncomplicated; Z86.73 Personal history of transient ischemic attack (TIA), and cerebral infarction without residual deficits; E11.9 Type 2 diabetes mellitus without complications; M19.90 Unspecified osteoarthritis, unspecified site; Z95.1 Presence of aortocoronary bypass graft; Z79.4 Long term (current) use of insulin; Z79.84 Long term (current) use of oral hypoglycemic drugs
CPT/HCPCS: 55874; C1889; J2001; J2250; J1100; J0690; J2405; J3010; J2704

== ENCOUNTER → 2021-09-10 | Outpatient (CLI) | payer MEDICARE, BC ==
[2021-09-10 12:41] LABS: Appearance,Urine Clear (Clear); Bilirubin,Urine Negative (Negative); Blood,Urine Negative (Negative); Color,Urine Light Yellow; Glucose,Urine (UA) Negative (Negative); Ketones,Urine Negative (Negative); Leukocyte Esterase,Urine Negative (Negative); Nitrite,Urine Negative (Negative); Protein,Urine Negative (Negative); Specific Gravity,Urine 1.011 (1.001-1.035); Urobilinogen,Urine <2.0 mg/dL (<2.0)
== END | disposition home or self-care (01) ==
LOC: LABWHC1 11:02
PROVIDERS: ATTEND Radiology Radiation Oncology
DX: C61 Malignant neoplasm of prostate (principal); R35.1 Nocturia; R30.0 Dysuria
CPT/HCPCS: 81003; 87086

== ENCOUNTER 2021-10-21 08:01 | Emergency (ER) | payer MEDICARE, BC ==
[2021-10-21 08:12] VITALS: BP 131/47; PULSE 61; RESP 17; TEMP 97.8
--- NOTE | 2021-10-21 08:26 | ED ---
General Adult HPI - General Chief complaint: Urogenital Stated complaint: Urogenital Time Seen by Provider: 10/21/21 08:05 Source: patient, EMS, RN notes reviewed, old records reviewed Mode of arrival: EMS - History of Present Illness Initial comments: This is a 76-year-old male who presents emergency Department with hematuria. Patient states she's been doing self catheterizations for the last month he's been treated for prostate cancer with radiation. Patient states his last treatment was last . Patient states he catheterizations becoming more more difficult lately and this morning when he pulled the catheter out just started to drip blood from his penis he thinks it is stopped now but he is on eliquis and he didn't know what to do psychiatric emergency department patient denies any abdominal pain. Patient has a fever chills. Patient denies any back pain. - Related Data Home Medications Medication Instructions Recorded Confirmed Aspirin EC [Ecotrin Low Dose] 81 mg PO HS 03/21/14 08/19/21 Citalopram Hydrobromide [CeleXA] 40 mg PO HS 03/21/14 08/19/21 Multivitamins, Thera [Multivitamin 1 tab PO HS 03/21/14 08/17/21 (formulary)] Insulin NPH Hum/Reg Insulin Hm 30 unit SQ AC-SUPPER 02/05/18 08/19/21 [NovoLIN 70-30 100 UNIT/ML VIAL] Insulin NPH Hum/Reg Insulin Hm 36 unit SQ AC-BRKFST 02/05/18 08/19/21 [NovoLIN 70-30 100 UNIT/ML VIAL] Spironolactone [Aldactone] 25 mg PO DAILY 07/06/18 08/19/21 ALPRAZolam [Xanax] 0.25 mg PO BID 03/18/21 08/19/21 Albuterol Sulfate [Ventolin HFA] 1 - 2 puff INHALATION RT-Q6H PRN 03/18/21 08/19/21 Candesartan Cilexetil 8 mg PO DAILY 03/18/21 08/19/21 Finasteride [Proscar] 5 mg PO DAILY 03/18/21 08/19/21 Mometasone/Formoterol [Dulera 100 2 puff PO RT-BID 03/18/21 08/19/21 Mcg-5 Mcg Inhaler] Montelukast [Singulair] 10 mg PO DAILY 03/18/21 08/19/21 guaiFENesin [Mucinex] 600 mg PO BID PRN 03/18/21 08/19/21 metFORMIN HCL 1,000 mg PO BID 03/18/21 08/19/21 Previous Rx's Medication Instructions Recorded Apixaban [Eliquis] 5 mg PO BID tab 01/19/18 Atorvastatin [Lipitor] 40 mg PO DAILY tab 01/19/18 Tamsulosin [Flomax] 0.4 mg PO BID cap.er.24h 01/19/18 Isosorbide Mononitrate ER [Imdur] 30 mg PO DAILY 30 Days #30 tablet 03/20/21 Metoprolol Tartrate [Lopressor] 12.5 mg PO DAILY 30 Days #30 tab 03/20/21 Nitroglycerin Sl Tabs [Nitrostat] 0.4 mg SUBLINGUAL Q5M PRN #25 tab 03/20/21 Allergies Allergy/AdvReac Type Severity Reaction Status Date / Time No Known Allergies Allergy Verified 10/21/21 08:12 Review of Systems ROS Statement: Those systems with pertinent positive or pertinent negative responses have been documented in the HPI. ROS Other: All systems not noted in ROS Statement are negative. Past Medical History Past Medical History: Coronary Artery Disease (CAD), CVA/TIA, Diabetes Mellitus, Hyperlipidemia, Hypertension, Myocardial Infarction ([place]), Prostate Disorder Additional Past Medical History / Comment(s): SEE H & P PROVIDED BY DR. EVA SILVERMAN. SOME UPPER RIGHT CHEST PAIN. HX OF TIA, ENLARGED PROSTATE, [place] X3, Prostate CA Last Myocardial Infarction Date:: 10/01/2011 History of Any Multi-Drug Resistant Organisms: None Reported Past Surgical History: Coronary Bypass/CABG, Heart Catheterization With Stent, Hernia Repair Additional Past Surgical History / Comment(s): INGUINAL HERNIA, RT HEEL SURGERY WITH HARDWARE. BILATERAL CATARACTS. Past Anesthesia/Blood Transfusion Reactions: No Reported Reaction Additional Past Anesthesia/Blood Transfusion Reaction / Comment(s): no hx blood transfusion Date of Last Stent Placement:: 10/01/2011 Past Psychological History: Anxiety, Depression Smoking Status: Never smoker Past Alcohol Use History: None Reported Past Drug Use History: None Reported - Past Family History Mother Family Medical History: Cancer, Diabetes Mellitus Additional Family Medical History / Comment(s): pancreas Father Family Medical History: Cancer General Exam - General Exam Comments Initial Comments: GENERAL Patient is well-developed and well-nourished. Patient is in mild distress. EYES Patient's pupils are equal and round. Extraocular motion is intact SKIN Unremarkable NEURO The patient is alert and oriented 3 PYSCH Patient has normal interpersonal interactions. MUSCULOSKELETAL All 4 times and full range of motion GENITALIA There was no active bleeding when I examined the penis Course Vital Signs 10/21/21 08:03 Temperature 97.8 F Pulse Rate 61 Respiratory 17 Rate Blood Pressure 131/47 O2 Sat by Pulse 98 Oximetry Medical Decision Making - Medical Decision Making I went back in the room to reevaluate the patient he was holding his foot and asked him why he was doing that he said he had some sharp pain and I looked at his foot and there was a small piece of glass stuck in his toe. Patient states at home he did break glass he didn't realize he stepped on it. I pulled out the piece of glass and there was very superficial puncture wound. Patient received a tetanus. I spoke with because he wanted the patient to have a Del Rosario and follow-up in the office. - Lab Data Result diagrams: 10/21/21 08:55 Lab Results 10/21/21 10/21/21 Range/Units 08:55 09:02 WBC 6.1 (3.8-10.6) k/uL RBC 3.91 L (4.30-5.90) m/uL Hgb 12.6 L (13.0-17.5) gm/dL Hct 38.3 L (39.0-53.0) % MCV 97.9 (80.0-100.0) fL MCH 32.2 (25.0-35.0) pg MCHC 33.0 (31.0-37.0) g/dL RDW 12.8 (11.5-15.5) % Plt Count 207 (150-450) k/uL MPV 8.6 Neutrophils % 78 % Lymphocytes % 9 % Monocytes % 7 % Eosinophils % 4 % Basophils % 0 % Neutrophils # 4.8 (1.3-7.7) k/uL Lymphocytes # 0.5 L (1.0-4.8) k/uL Monocytes # 0.4 (0-1.0) k/uL Eosinophils # 0.2 (0-0.7) k/uL Basophils # 0.0 (0-0.2) k/uL Urine Color Light Red Urine Appearance Cloudy (Clear) Urine pH 6.0 (5.0-8.0) Ur Specific [place] 1.019 (1.001-1.035) Urine Protein 1+ H (Negative) Urine Glucose (UA) Negative (Negative) Urine Ketones Trace H (Negative) Urine Blood Large H (Negative) Urine Nitrite Negative (Negative) Urine Bilirubin Negative (Negative) Urine Urobilinogen <2.0 (<2.0) mg/dL Ur Leukocyte Esterase Moderate H (Negative) Urine RBC >182 H (0-5) /hpf Urine WBC 61 H (0-5) /hpf Urine Bacteria Rare H (None) /hpf Urine Mucus Rare H (None) /hpf Disposition Clinical Impression: Hematuria, Puncture wound of toe Disposition: HOME SELF-CARE Condition: Good Instructions (If sedation given, give patient instructions): Hematuria (ED) Is patient prescribed a controlled substance at d/c from ED?: No Referrals: Pedro Noland MD [STAFF PHYSICIAN] - 1-2 days Time of Disposition: 10:00
[2021-10-21 09:10] LABS: Basophils % (A) 0 %; Eosinophils # (A) 0.2 k/uL (0-0.7); Eosinophils % (A) 4 %; HCT 38.3 % (39.0-53.0); HGB 12.6 gm/dL (13.0-17.5); Lymphocytes # (A) 0.5 k/uL (1.0-4.8); Lymphocytes % (A) 9 %; MCH 32.2 pg (25.0-35.0); MCV 97.9 fL (80.0-100.0); Mean Platelet Volume 8.6; Monocytes # (A) 0.4 k/uL (0-1.0); Monocytes % (A) 7 %; Neutrophils # (A) 4.8 k/uL (1.3-7.7); Neutrophils % (A) 78 %; Platelet Count 207 k/uL (150-450); RBC 3.91 m/uL (4.30-5.90); RDW 12.8 % (11.5-15.5); WBC 6.1 k/uL (3.8-10.6)
[2021-10-21 09:22] LABS: Appearance,Urine Cloudy (Clear); Bacteria,Urine Rare /hpf; Bilirubin,Urine Negative (Negative); Blood,Urine Large (Negative); Color,Urine Light Red; Glucose,Urine (UA) Negative (Negative); Ketones,Urine Trace (Negative); Leukocyte Esterase,Urine Moderate (Negative); Mucus,Urine Rare /hpf; Nitrite,Urine Negative (Negative); Protein,Urine 1+ (Negative); RBC,Urine >182 /hpf (0-5); Specific Gravity,Urine 1.019 (1.001-1.035); Urobilinogen,Urine <2.0 mg/dL (<2.0); WBC,Urine 61 /hpf (0-5)
[2021-10-21] MEDS ORDERED: DIPH,PERTUS(ACELL)TETVAC-LF 0.5 ML VIAL IM ONE (09:58)
== END 2021-10-21 10:40 | disposition home or self-care (01) ==
LOC: EC 08:01
DX: S91.139A Puncture wound without foreign body of unspecified toe(s) without damage to nail, initial encounter (principal); R31.9 Hematuria, unspecified; E11.36 Type 2 diabetes mellitus with diabetic cataract; E78.5 Hyperlipidemia, unspecified; I10 Essential (primary) hypertension; I25.10 Atherosclerotic heart disease of native coronary artery without angina pectoris; I25.2 Old myocardial infarction; N40.0 Benign prostatic hyperplasia without lower urinary tract symptoms; Z79.51 Long term (current) use of inhaled steroids; Z79.84 Long term (current) use of oral hypoglycemic drugs; Z86.73 Personal history of transient ischemic attack (TIA), and cerebral infarction without residual deficits; Z95.1 Presence of aortocoronary bypass graft; Z79.899 Other long term (current) drug therapy; Z79.4 Long term (current) use of insulin; Z79.82 Long term (current) use of aspirin; Z23 Encounter for immunization; W22.8XXA Striking against or struck by other objects, initial encounter
CPT/HCPCS: 36415; 51798; 81001; 85025; 87086; 90471; 90715; 99284

== ENCOUNTER 2021-12-05 20:21 | Emergency (ER) | payer MEDICARE, BC ==
[2021-12-05 20:30] VITALS: BP 133/64; PULSE 63; RESP 18; TEMP 98.7
[2021-12-05 21:54] LABS: Appearance,Urine Turbid (Clear); Bacteria,Urine Occasional /hpf; Bilirubin,Urine 2+ (Negative); Blood,Urine Large (Negative); Glucose,Urine (UA) Negative (Negative); Hyaline Casts,Urine 21 /lpf (0-2); Ketones,Urine Negative (Negative); Leukocyte Esterase,Urine Large (Negative); Mucus,Urine Few /hpf; Nitrite,Urine Positive (Negative); Protein,Urine 3+ (Negative); RBC,Urine 112 /hpf (0-5); Specific Gravity,Urine 1.021 (1.001-1.035); WBC,Urine >182 /hpf (0-5)
[2021-12-05 21:56] LABS: Color,Urine Dark Orange
[2021-12-05] MEDS ORDERED: CEPHALEXIN 500 MG CAP PO STA (22:42)
--- NOTE | 2021-12-05 23:14 | ED ---
Male Urogenital HPI - General Chief complaint: Urogenital Stated complaint: Trouble and painful urination Time Seen by Provider: 12/05/21 20:30 Source: patient Mode of arrival: ambulatory Limitations: no limitations - History of Present Illness Initial comments: 76-year-old male past history of coronary artery disease, CVA, prostate cancer with radiation therapy who presents emergency department with painful urination and urgency. Patient currently undergoing radiation treatments for prostate cancer and last had radiation during the middle of October. He sees Dr. Gaston. Patient has had issues with urinary retention and does see urology. He does a straight cath nightly. Patient reports over the past few days he has been straight cathing twice a day because of his discomfort. Feels as if he has a lot of pressure. He will straight cath and some of the sensation that he has to go to the bathroom. He took a dose of Pyridium before coming into the emergency room. He denies any fevers. No issues with his bowel habits. Denies any back pain. No other alleviating, precipitating or modifying factors - Related Data Home Medications Medication Instructions Recorded Confirmed Aspirin EC [Ecotrin Low Dose] 81 mg PO HS 03/21/14 08/19/21 Citalopram Hydrobromide [CeleXA] 40 mg PO HS 03/21/14 08/19/21 Multivitamins, Thera [Multivitamin 1 tab PO HS 03/21/14 08/17/21 (formulary)] Insulin NPH Hum/Reg Insulin Hm 30 unit SQ AC-SUPPER 02/05/18 08/19/21 [NovoLIN 70-30 100 UNIT/ML VIAL] Insulin NPH Hum/Reg Insulin Hm 36 unit SQ AC-BRKFST 02/05/18 08/19/21 [NovoLIN 70-30 100 UNIT/ML VIAL] Spironolactone [Aldactone] 25 mg PO DAILY 07/06/18 08/19/21 ALPRAZolam [Xanax] 0.25 mg PO BID 03/18/21 08/19/21 Albuterol Sulfate [Ventolin HFA] 1 - 2 puff INHALATION RT-Q6H PRN 03/18/21 08/19/21 Candesartan Cilexetil 8 mg PO DAILY 03/18/21 08/19/21 Finasteride [Proscar] 5 mg PO DAILY 03/18/21 08/19/21 Mometasone/Formoterol [Dulera 100 2 puff PO RT-BID 03/18/21 08/19/21 Mcg-5 Mcg Inhaler] Montelukast [Singulair] 10 mg PO DAILY 03/18/21 08/19/21 guaiFENesin [Mucinex] 600 mg PO BID PRN 03/18/21 08/19/21 metFORMIN HCL 1,000 mg PO BID 03/18/21 08/19/21 Previous Rx's Medication Instructions Recorded Apixaban [Eliquis] 5 mg PO BID tab 01/19/18 Atorvastatin [Lipitor] 40 mg PO DAILY tab 01/19/18 Tamsulosin [Flomax] 0.4 mg PO BID cap.er.24h 01/19/18 Isosorbide Mononitrate ER [Imdur] 30 mg PO DAILY 30 Days #30 tablet 03/20/21 Metoprolol Tartrate [Lopressor] 12.5 mg PO DAILY 30 Days #30 tab 03/20/21 Nitroglycerin Sl Tabs [Nitrostat] 0.4 mg SUBLINGUAL Q5M PRN #25 tab 03/20/21 Cephalexin [Keflex] 500 mg PO Q6HR #28 cap 12/05/21 Allergies Allergy/AdvReac Type Severity Reaction Status Date / Time No Known Allergies Allergy Verified 12/05/21 20:29 Review of Systems ROS Statement: Those systems with pertinent positive or pertinent negative responses have been documented in the HPI. ROS Other: All systems not noted in ROS Statement are negative. Past Medical History Past Medical History: Coronary Artery Disease (CAD), CVA/TIA, Diabetes Mellitus, Hyperlipidemia, Hypertension, Myocardial Infarction ([place]), Prostate Disorder Additional Past Medical History / Comment(s): SEE H & P PROVIDED BY DR. EVA SILVERMAN. SOME UPPER RIGHT CHEST PAIN. HX OF TIA, ENLARGED PROSTATE, [place] X3, Prostate CA Last Myocardial Infarction Date:: 10/01/2011 History of Any Multi-Drug Resistant Organisms: None Reported Past Surgical History: Coronary Bypass/CABG, Heart Catheterization With Stent, Hernia Repair Additional Past Surgical History / Comment(s): INGUINAL HERNIA, RT HEEL SURGERY WITH HARDWARE. BILATERAL CATARACTS. Past Anesthesia/Blood Transfusion Reactions: No Reported Reaction Additional Past Anesthesia/Blood Transfusion Reaction / Comment(s): no hx blood transfusion Date of Last Stent Placement:: 10/01/2011 Past Psychological History: Anxiety, Depression Smoking Status: Never smoker Past Alcohol Use History: None Reported Past Drug Use History: None Reported - Past Family History Mother Family Medical History: Cancer, Diabetes Mellitus Additional Family Medical History / Comment(s): pancreas Father Family Medical History: Cancer General Exam Limitations: no limitations General appearance: alert, in no apparent distress Head exam: Present: atraumatic, normocephalic, normal inspection Eye exam: Present: normal appearance, PERRL, EOMI. Absent: scleral icterus, conjunctival injection, periorbital swelling ENT exam: Present: normal exam, mucous membranes moist Neck exam: Present: normal inspection. Absent: tenderness, meningismus, lymphadenopathy Respiratory exam: Present: normal lung sounds bilaterally. Absent: respiratory distress, wheezes, rales, rhonchi, stridor Cardiovascular Exam: Present: regular rate, normal rhythm, normal heart sounds. Absent: systolic murmur, diastolic murmur, rubs, gallop, clicks GI/Abdominal exam: Present: soft, normal bowel sounds. Absent: distended, tenderness, guarding, rebound, rigid Extremities exam: Present: normal inspection, full ROM, normal capillary refill. Absent: tenderness, pedal edema, joint swelling, calf tenderness Back exam: Present: normal inspection Neurological exam: Present: alert, oriented X3, CN II-XII intact Psychiatric exam: Present: normal affect, normal mood Skin exam: Present: warm, dry, intact, normal color. Absent: rash Course Vital Signs 12/05/21 20:26 Temperature 98.7 F Pulse Rate 63 Respiratory 18 Rate Blood Pressure 133/64 O2 Sat by Pulse 95 Oximetry Medical Decision Making - Medical Decision Making Upon arrival the patient is placed in room 25. A thorough history and physical exam was performed. Patient does attempt to void and is able to get out of proximally 20 mL. We did bladder scan him and then a Del Rosario catheter is placed. Patient does have 250 mL of urine in the Del Rosario catheter bag. Urinalysis demonstrates occasional bacteria with many white blood cell clumps. Specimen will be sent for culture. He is given a dose of Rocephin. I discussed the diagnosis and treatment options. Del Rosario catheter will be removed at this time as the patient does self cath at home and there is no signs of large urinary retention. Patient will be placed on antibiotics in the outpatient setting. Is instructed to follow-up with his urologist and return for any new or worsening symptoms. Did discuss proper hygiene when straight cathing as the patient states that he will most times not wash his hands or clean the area before straight cathing. Patient agreed to this plan and was discharged home in stable condition - Lab Data Lab Results 12/05/21 Range/Units 21:12 Urine Color Dark [place] Urine Appearance Turbid (Clear) Urine pH 6.0 (5.0-8.0) Ur Specific [place] 1.021 (1.001-1.035) Urine Protein 3+ H (Negative) Urine Glucose (UA) Negative (Negative) Urine Ketones Negative (Negative) Urine Blood Large H (Negative) Urine Nitrite Positive (Negative) Urine Bilirubin 2+ H (Negative) Urine Urobilinogen 4.0 (<2.0) mg/dL Ur Leukocyte Esterase Large H (Negative) Urine RBC 112 H (0-5) /hpf Urine WBC >182 H (0-5) /hpf Urine WBC Clumps Many H (None) /hpf Urine Bacteria Occasional H (None) /hpf Hyaline Casts 21 H (0-2) /lpf Urine Mucus Few H (None) /hpf Disposition Clinical Impression: UTI (urinary tract infection), Self-catheterizes urinary bladder Disposition: HOME SELF-CARE Condition: Stable Instructions (If sedation given, give patient instructions): Urinary Tract Infection in Men (ED) Additional Instructions: Please straight cath twice daily for the next 2 days. Take antibiotics as directed. Follow up with urologist and return for any new or worsening symptoms Prescriptions: Cephalexin [Keflex] 500 mg PO Q6HR #28 cap Is patient prescribed a controlled substance at d/c from ED?: No Referrals: Promise Pierce MD [Primary Care Provider] - 1-2 days Time of Disposition: 23:14
== END 2021-12-05 23:21 | disposition home or self-care (01) ==
LOC: EC 20:21
DX: N39.0 Urinary tract infection, site not specified (principal); Z86.73 Personal history of transient ischemic attack (TIA), and cerebral infarction without residual deficits; I25.10 Atherosclerotic heart disease of native coronary artery without angina pectoris; I25.2 Old myocardial infarction; E11.9 Type 2 diabetes mellitus without complications; I10 Essential (primary) hypertension; E78.5 Hyperlipidemia, unspecified
CPT/HCPCS: 81001; 87077; 87086; 87186

== ENCOUNTER → 2021-12-07 | Outpatient (CLI) | payer MEDICARE, BC ==
[2021-12-07 17:51] LABS: African American GFR (CKD) 57.1 (60.0-200.0); Non-African American GFR(CKD) 49.2 (60.0-200.0)
== END | disposition home or self-care (01) ==
LOC: LABWHC1 11:21
PROVIDERS: ATTEND Radiology Radiation Oncology
DX: C61 Malignant neoplasm of prostate (principal); R35.1 Nocturia; Z92.3 Personal history of irradiation
CPT/HCPCS: 36415; 82565; 84153; 84520

== ENCOUNTER 2022-03-14 11:13 | Emergency (ER) | payer MEDICARE, BC ==
--- NOTE | 2022-03-14 12:37 | XR ---
EXAMINATION TYPE: XR elbow complete LT DATE OF EXAM: 03/14/2022 COMPARISON: NONE HISTORY: Pain FINDINGS: Three views of the elbow demonstrate mild displacement of the anterior fat pad suggestive of small ross int effusion. No definite fracture line is seen. IMPRESSION: 1. Findings suspicious for mild displacement of the anterior fat pad and small joint effusion. No def inite fracture seen. This could be related to post arthritic or inflammatory condition. Occult fractu re not excluded correlate clinically.
--- NOTE | 2022-03-14 12:56 | ED ---
Fall HPI - General Chief Complaint: Fall Stated Complaint: fall, arm injury Time Seen by Provider: 03/14/22 11:59 Source: patient, RN notes reviewed Mode of arrival: ambulatory Limitations: no limitations - History of Present Illness Initial Comments: 76-year-old male presents emergency Department with chief complaint of trip and fall. Patient states he fell any yelena ecchymosis over the weekend. Patient states that he did have dental injury which she follow-up with dentist he complains of left elbow pain and swelling. Patient states he has pain with full extension. Patient denies any other traumatic injuries. - Related Data Home Medications Medication Instructions Recorded Confirmed Aspirin EC [Ecotrin Low Dose] 81 mg PO HS 03/21/14 08/19/21 Citalopram Hydrobromide [CeleXA] 40 mg PO HS 03/21/14 08/19/21 Multivitamins, Thera [Multivitamin 1 tab PO HS 03/21/14 08/17/21 (formulary)] Insulin NPH Hum/Reg Insulin Hm 30 unit SQ AC-SUPPER 02/05/18 08/19/21 [NovoLIN 70-30 100 UNIT/ML VIAL] Insulin NPH Hum/Reg Insulin Hm 36 unit SQ AC-BRKFST 02/05/18 08/19/21 [NovoLIN 70-30 100 UNIT/ML VIAL] Spironolactone [Aldactone] 25 mg PO DAILY 07/06/18 08/19/21 ALPRAZolam [Xanax] 0.25 mg PO BID 03/18/21 08/19/21 Albuterol Sulfate [Ventolin HFA] 1 - 2 puff INHALATION RT-Q6H PRN 03/18/21 Candesartan Cilexetil 8 mg PO DAILY 03/18/21 08/19/21 Finasteride [Proscar] 5 mg PO DAILY 03/18/21 08/19/21 Mometasone/Formoterol [Dulera 100 2 puff PO RT-BID 03/18/21 08/19/21 Mcg-5 Mcg Inhaler] Montelukast [Singulair] 10 mg PO DAILY 03/18/21 08/19/21 guaiFENesin [Mucinex] 600 mg PO BID PRN 03/18/21 08/19/21 metFORMIN HCL 1,000 mg PO BID 03/18/21 08/19/21 Previous Rx's Medication Instructions Recorded Apixaban [Eliquis] 5 mg PO BID tab 01/19/18 Atorvastatin [Lipitor] 40 mg PO DAILY tab 01/19/18 Tamsulosin [Flomax] 0.4 mg PO BID cap.er.24h 01/19/18 Isosorbide Mononitrate ER [Imdur] 30 mg PO DAILY 30 Days #30 tablet 03/20/21 Metoprolol Tartrate [Lopressor] 12.5 mg PO DAILY 30 Days #30 tab 03/20/21 Nitroglycerin Sl Tabs [Nitrostat] 0.4 mg SUBLINGUAL Q5M PRN #25 tab 03/20/21 Cephalexin [Keflex] 500 mg PO Q6HR #28 cap 12/05/21 Allergies Allergy/AdvReac Type Severity Reaction Status Date / Time No Known Allergies Allergy Verified 03/14/22 11:37 Review of Systems ROS Statement: Those systems with pertinent positive or pertinent negative responses have been documented in the HPI. ROS Other: All systems not noted in ROS Statement are negative. Past Medical History Past Medical History: Coronary Artery Disease (CAD), CVA/TIA, Diabetes Mellitus, Hyperlipidemia, Hypertension, Myocardial Infarction ([place]), Prostate Disorder Additional Past Medical History / Comment(s): SEE H & P PROVIDED BY DR. EVA SILVERMAN. SOME UPPER RIGHT CHEST PAIN. HX OF TIA, ENLARGED PROSTATE, [place] X3, Prostate CA Last Myocardial Infarction Date:: 10/01/2011 History of Any Multi-Drug Resistant Organisms: None Reported Past Surgical History: Coronary Bypass/CABG, Heart Catheterization With Stent, H ernia Repair Additional Past Surgical History / Comment(s): INGUINAL HERNIA, RT HEEL SURGERY WITH HARDWARE. BILATERAL CATARACTS. Past Anesthesia/Blood Transfusion Reactions: No Reported Reaction Additional Past Anesthesia/Blood Transfusion Reaction / Comment(s): no hx blood transfusion Date of Last Stent Placement:: 10/01/2011 Past Psychological History: Anxiety, Depression Smoking Status: Never smoker Past Alcohol Use History: None Reported Past Drug Use History: None Reported - Past Family History Mother Family Medical History: Cancer, Diabetes Mellitus Additional Family Medical History / Comment(s): pancreas Father Family Medical History: Cancer General Exam Limitations: no limitations General appearance: alert, in no apparent distress Head exam: Present: atraumatic, normocephalic, normal inspection Eye exam: Present: normal appearance, PERRL, EOMI. Absent: scleral icterus, conjunctival injection, periorbital swelling ENT exam: Present: mucous membranes moist. Absent: normal exam (Facial abrasion, dental trauma), normal oropharynx Neck exam: Present: normal inspection, full ROM. Absent: tenderness, m eningismus, lymphadenopathy Respiratory exam: Present: normal lung sounds bilaterally. Absent: respiratory distress, wheezes, rales, rhonchi, stridor Cardiovascular Exam: Present: regular rate, normal rhythm, normal heart sounds. Absent: systolic murmur, diastolic murmur, rubs, gallop, clicks Extremities exam: Present: other (Pain with left elbow extension, there is moderate amount swelling noted) Course Vital Signs 03/14/22 11:33 Temperature 98.5 F Pulse Rate 54 L Respiratory 16 Rate Blood Pressure 137/52 O2 Sat by Pulse 98 Oximetry Procedures - Orthopedic Splinting/Casting Injury #1 Side: left Upper Extremity Injury Location: long arm, elbow Upper Extremity Immobilizer: sling/shoulder immobilizer, posterior splint, synthetic pre-padded splint Medical Decision Making - Medical Decision Making 76-year-old presented for left elbow injury patient is some pain with full extension x-ray shows abnormal fat pad sign concerning for occult fracture. Patient was splinted and will follow-up. Disposition Clinical Impression: Fall, Elbow fracture, left Disposition: HOME SELF-CARE Condition: Stable Instructions (If sedation given, give patient instructions): Arm Fracture in Adults (ED) Additional Instructions: Please return to the Emergency Department if symptoms worsen or any other concerns. Is patient prescribed a controlled substance at d/c from ED?: No Referrals: None,Stated [Primary Care Provider] - 1-2 days Americo Francisco MD [Medical Doctor] - 1-2 days Time of Disposition: 12:55
[2022-03-14 13:28] VITALS: BP 137/67; PULSE 61; RESP 18; TEMP 98.1
== END 2022-03-14 13:28 | disposition home or self-care (01) ==
LOC: EC 11:13
DX: S42.402A Unspecified fracture of lower end of left humerus, initial encounter for closed fracture (principal); I25.10 Atherosclerotic heart disease of native coronary artery without angina pectoris; Z86.73 Personal history of transient ischemic attack (TIA), and cerebral infarction without residual deficits; E11.9 Type 2 diabetes mellitus without complications; E78.5 Hyperlipidemia, unspecified; I10 Essential (primary) hypertension; I25.2 Old myocardial infarction; Z79.82 Long term (current) use of aspirin; Z79.84 Long term (current) use of oral hypoglycemic drugs; Z79.4 Long term (current) use of insulin; Z79.899 Other long term (current) drug therapy; W01.0XXA Fall on same level from slipping, tripping and stumbling without subsequent striking against object, initial encounter
CPT/HCPCS: 29105; 99284

== ENCOUNTER 2022-03-29 09:16 | Emergency (ER) | payer MEDICARE, BC ==
[2022-03-29 09:29] VITALS: TEMP 98.2
--- NOTE | 2022-03-29 10:01 | XR ---
EXAMINATION TYPE: XR ribs RT w pa chest xray DATE OF EXAM: 03/29/2022 COMPARISON: 03/18/2021 TECHNIQUE: Frontal view of the chest and 4 views of the right ribs are submitted. HISTORY: Pain FINDINGS: Postsurgical changes are seen. There are numerous chronic right-sided rib deformities compatible with remote trauma stable prior chest x-rays. Subsegmental linear changes at both lung bases most scarrin g or atelectasis. No there is a cortical deformity involving the lateral margin of the right fifth ri b. IMPRESSION: 1. Numerous remote rib fractures. 2. Suspected new hairline fracture through lateral margin right fifth rib correlate with point tender ness.
[2022-03-29] MEDS ORDERED: ACET/COD 300 MG/30 MG STARTER PACK 6 TAB BTL PO STA (10:09)
--- NOTE | 2022-03-29 10:12 | ED ---
Fall HPI - General Chief Complaint: Fall Stated Complaint: fall 5 days ago, rib pain Time Seen by Provider: 03/29/22 09:30 Source: patient, RN notes reviewed Mode of arrival: ambulatory Limitations: no limitations - History of Present Illness Initial Comments: 76-year-old male presents emergency Department chief complaint of trip and fall. Patient states his happened 5 days ago in which a mat was over the step over door entry. Patient states he fell onto his ribs in the right side no head injury no loss conscious. Patient states that he has pain on his right lateral ribs and pain with deep inspiration does not feel short of breath no other noted injuries. - Related Data Home Medications Medication Instructions Recorded Confirmed Aspirin EC [Ecotrin Low Dose] 81 mg PO HS 03/21/14 08/19/21 Citalopram Hydrobromide [CeleXA] 40 mg PO HS 03/21/14 08/19/21 Multivitamins, Thera [Multivitamin 1 tab PO HS 03/21/14 08/17/21 (formulary)] Insulin NPH Hum/Reg Insulin Hm 30 unit SQ AC-SUPPER 02/05/18 08/19/21 [NovoLIN 70-30 100 UNIT/ML VIAL] Insulin NPH Hum/Reg Insulin Hm 36 unit SQ AC-BRKFST 02/05/18 08/19/21 [NovoLIN 70-30 100 UNIT/ML VIAL] Spironolactone [Aldactone] 25 mg PO DAILY 07/06/18 08/19/21 ALPRAZolam [Xanax] 0.25 mg PO BID 03/18/21 08/19/21 Albuterol Sulfate [Ventolin HFA] 1 - 2 puff INHALATION RT-Q6H PRN 03/18/21 08/19/21 Candesartan Cilexetil 8 mg PO DAILY 03/18/21 08/19/21 Finasteride [Proscar] 5 mg PO DAILY 03/18/21 08/19/21 Mometasone/Formoterol [Dulera 100 2 puff PO RT-BID 03/18/21 08/19/21 Mcg-5 Mcg Inhaler] Montelukast [Singulair] 10 mg PO DAILY 03/18/21 08/19/21 guaiFENesin [Mucinex] 600 mg PO BID PRN 03/18/21 08/19/21 metFORMIN HCL 1,000 mg PO BID 03/18/21 08/19/21 Previous Rx's Medication Instructions Recorded Apixaban [Eliquis] 5 mg PO BID tab 01/19/18 Atorvastatin [Lipitor] 40 mg PO DAILY tab 01/19/18 Tamsulosin [Flomax] 0.4 mg PO BID cap.er.24h 01/19/18 Isosorbide Mononitrate ER [Imdur] 30 mg PO DAILY 30 Days #30 tablet 03/20/21 Metoprolol Tartrate [Lopressor] 12.5 mg PO DAILY 30 Days #30 tab 03/20/21 Nitroglycerin Sl Tabs [Nitrostat] 0.4 mg SUBLINGUAL Q5M PRN #25 tab 03/20/21 Cephalexin [Keflex] 500 mg PO Q6HR #28 cap 12/05/21 Allergies Allergy/AdvReac Type Severity Reaction Status Date / Time No Known Allergies Allergy Verified 03/14/22 11:37 Review of Systems ROS Statement: Those systems with pertinent positive or pertinent negative responses have been documented in the HPI. ROS Other: All systems not noted in ROS Statement are negative. Past Medical History Past Medical History: Coronary Artery Disease (CAD), CVA/TIA, Diabetes Mellitus, Hyperlipidemia, Hypertension, Myocardial Infarction ([place]), Prostate Disorder Additional Past Medical History / Comment(s): SEE H & P PROVIDED BY DR. EVA SILVERMAN. SOME UPPER RIGHT CHEST PAIN. HX OF TIA, ENLARGED PROSTATE, [place] X3, Prostate CA Last Myocardial Infarction Date:: 10/01/2011 History of Any Multi-Drug Resistant Organisms: None Reported Past Surgical History: Coronary Bypass/CABG, Heart Catheterization With Stent, Hernia Repair Additional Past Surgical History / Comment(s): INGUINAL HERNIA, RT HEEL SURGERY WITH HARDWARE. BILATERAL CATARACTS. Past Anesthesia/Blood Transfusion Reactions: No Reported Reaction Additional Past Anesthesia/Blood Transfusion Reaction / Comment(s): no hx blood transfusion Date of Last Stent Placement:: 10/01/2011 Past Psychological History: Anxiety, Depression Smoking Status: Never smoker Past Alcohol Use History: None Reported Past Drug Use History: None Reported - Past Family History Mother Family Medical History: Cancer, Diabetes Mellitus Additional Family Medical History / Comment(s): pancreas Father Family Medical History: Cancer General Exam Limitations: no limitations General appearance: alert, in no apparent distress Head exam: Present: atraumatic, normocephalic, normal inspection Eye exam: Present: normal appearance, PERRL, EOMI. Absent: scleral icterus, conjunctival injection, periorbital swelling Respiratory exam: Present: normal lung sounds bilaterally, chest wall tenderness. Absent: respiratory distress, wheezes, rales, rhonchi, stridor Cardiovascular Exam: Present: regular rate, normal rhythm, normal heart sounds. Absent: systolic murmur, diastolic murmur, rubs, gallop, clicks GI/Abdominal exam: Present: soft, normal bowel sounds. Absent: distended, tenderness, guarding, rebound, rigid Course Vital Signs 03/29/22 09:23 Temperature 98.2 F Pulse Rate 48 L Respiratory 18 Rate Blood Pressure 111/55 O2 Sat by Pulse 96 Oximetry Medical Decision Making - Medical Decision Making 76-year-old presented for trip and fall right rib injury. Patient has a right ninth rib fracture with no pneumothorax years old and fractures noted. Vitals are reviewed no hypoxia. Patient has a rate in the 50s which is baseline for patient. Disposition Clinical Impression: Fall, Right rib fracture Disposition: HOME SELF-CARE Condition: Stable Instructions (If sedation given, give patient instructions): Rib Fracture (ED) Additional Instructions: Please return to the Emergency Department if symptoms worsen or any other concerns. Is patient prescribed a controlled substance at d/c from ED?: No Referrals: None,Stated [Primary Care Provider] - 1-2 days Time of Disposition: 10:12
[2022-03-29 10:33] VITALS: BP 118/78; PULSE 61; RESP 16
== END 2022-03-29 10:33 | disposition home or self-care (01) ==
LOC: EC 09:16
DX: S22.31XA Fracture of one rib, right side, initial encounter for closed fracture (principal); Z86.73 Personal history of transient ischemic attack (TIA), and cerebral infarction without residual deficits; E11.9 Type 2 diabetes mellitus without complications; I10 Essential (primary) hypertension; I25.2 Old myocardial infarction; I25.10 Atherosclerotic heart disease of native coronary artery without angina pectoris; Z79.82 Long term (current) use of aspirin; W01.0XXA Fall on same level from slipping, tripping and stumbling without subsequent striking against object, initial encounter; Z79.4 Long term (current) use of insulin
CPT/HCPCS: 99283

== ENCOUNTER 2022-04-22 07:23 | Day surgery (SDC) | payer MEDICARE, BC ==
[2022-04-21 11:57] VITALS: BMI 27.8
[~2022-04-22 07:23] MED LIST changes: -DEXAMETHASONE SOD PHOSPHATE 4 MG/ML 1 ML VIAL IV ONE; -MIDAZOLAM 2 MG/2 ML VIAL IV PRN; -ONDANSETRON 4 MG/2 ML VIAL IVP ONE
[2022-04-22 08:00] LABS: Glucose,Whole Blood 151 mg/dL (70-110)
[2022-04-22] MEDS ORDERED: LACTATED RINGERS 1,000 ML IV ONE (08:00)
[2022-04-22 08:05] VITALS: RESP 15; TEMP 98.4
[2022-04-22] MEDS ORDERED: LIDOCAINE 2% INJ 20 MG/ML (2 ML VIAL) ONE (08:45)
[2022-04-22] MEDS ORDERED: PROPOFOL 10 MG/ML 20 ML VIAL IV ONE (08:45)
--- NOTE | 2022-04-22 09:08 | P.PCN ---
Date of Procedure: 04/22/22 Procedure(s) Performed: BRIEF HISTORY: Patient is a 76-year-old pleasant white male scheduled for an elective colonoscopy as a part of evaluation of change in bowel habits and Hemoccult-positive stool. PROCEDURE PERFORMED: Colonoscopy. PREOPERATIVE DIAGNOSIS: Change in Bowel habits and Hemoccult-positive stool. IV sedation per Anesthesia. PROCEDURE: After informed consent was obtained, the patient, was brought into the endoscopy unit. IV sedation was administered by Anesthesia under continuous monitoring. Digital rectal examination was normal. Initially the Olympus CF-160 flexible video colonoscope was then inserted in the rectum, gradually advanced into the cecum without any difficulty. Careful examination was performed as the scope was gradually being withdrawn. Ileocecal valve and the appendiceal orifice were visualized and appeared normal. Prep was fair.. Mucosa of the cecum, ascending colon, transverse colon, descending colon, sigmoid colon, and rectum appeared normal. Scattered sigmoid diverticula cyst. Retroflexion was performed in the rectum and no lesions were seen. The patient tolerated the procedure well. IMPRESSION: Normal-appearing colon from rectum to cecum with no evidence of colorectal neoplasia. Scattered sigmoid diverticulosis. RECOMMENDATIONS: Findings of this examination were discussed with the patient as well as his family. He was advised to be a high-fiber diet and take fiber supplements a regular basis and avoid constipation.
[2022-04-22 09:20] LABS: Glucose,Whole Blood 139 mg/dL (70-110)
[2022-04-22 09:37] VITALS: BP 134/63; PULSE 52
== END 2022-04-22 09:54 | disposition home or self-care (01) ==
LOC: ORWHC2ENDO 07:23
PROVIDERS: ATTEND Internal Medicine Gastroenterology
DX: R19.5 Other fecal abnormalities (principal); K57.30 Diverticulosis of large intestine without perforation or abscess without bleeding; Z79.899 Other long term (current) drug therapy
CPT/HCPCS: 45378; J2704; J2001

== ENCOUNTER 2022-10-11 13:17 | Emergency (ER) | payer MEDICARE, BC ==
[2022-10-11 15:01] LABS: Appearance,Urine Clear (Clear); Bilirubin,Urine Negative (Negative); Blood,Urine Negative (Negative); Color,Urine Light Yellow; Glucose,Urine (UA) Negative (Negative); Hyaline Casts,Urine 20 /lpf (0-2); Ketones,Urine Negative (Negative); Leukocyte Esterase,Urine Moderate (Negative); Mucus,Urine Rare /hpf; Nitrite,Urine Negative (Negative); Protein,Urine Negative (Negative); RBC,Urine 2 /hpf (0-5); Specific Gravity,Urine 1.012 (1.001-1.035); Squamous Epithelial Cell,Urine <1 /hpf (0-4); Urobilinogen,Urine <2.0 mg/dL (<2.0); WBC,Urine 10 /hpf (0-5)
[2022-10-11 15:51] LABS: Basophils % (A) 0 %; Eosinophils # (A) 0.1 k/uL (0-0.7); Eosinophils % (A) 2 %; HCT 37.3 % (39.0-53.0); HGB 12.4 gm/dL (13.0-17.5); Lymphocytes % (A) 13 %; MCH 30.9 pg (25.0-35.0); MCHC 33.3 g/dL (31.0-37.0); MCV 92.9 fL (80.0-100.0); Mean Platelet Volume 9.7; Monocytes # (A) 0.5 k/uL (0-1.0); Monocytes % (A) 7 %; Neutrophils # (A) 5.8 k/uL (1.3-7.7); Neutrophils % (A) 77 %; Platelet Count 192 k/uL (150-450); RBC 4.02 m/uL (4.30-5.90); RDW 12.3 % (11.5-15.5); WBC 7.5 k/uL (3.8-10.6)
[2022-10-11 16:06] LABS: Albumin 3.7 g/dL (3.5-5.0); Potassium 4.7 mmol/L (3.5-5.1); Total Bilirubin 0.4 mg/dL (0.2-1.3); Total Protein 5.9 g/dL (6.3-8.2)
--- NOTE | 2022-10-11 16:35 | ED ---
Fall HPI - General Source: patient, RN notes reviewed Mode of arrival: ambulatory Limitations: no limitations <Edson Staley - Last Filed: 10/11/22 16:32> <Jack Topete - Last Filed: 10/11/22 18:06> - General Chief Complaint: Fall Stated Complaint: FALL/ABD INJURY Time Seen by Provider: 10/11/22 15:00 - History of Present Illness Initial Comments: 77-year-old male presents emergency Department chief complaint of a trip and fall. Patient states he was moving garden hose when he tripped and fell on ground level he is on. Patient states she struck the right temporal region states initially had a headache that has improved. He denies any neck pain. Denies any chest pain. Patient states that he does have right-sided abdominal pain he has some discomfort 0.6 deep breath states it's below his ribs. Does not feel short of breath no hip pain he has no difficulty and related. (Edson Staley) - Related Data Home Medications Medication Instructions Recorded Confirmed Citalopram Hydrobromide [CeleXA] 40 mg PO DAILY 03/21/14 10/11/22 Insulin NPH Hum/Reg Insulin Hm 32 unit SQ HS 02/05/18 10/11/22 [NovoLIN 70-30 100 UNIT/ML VIAL] Spironolactone [Aldactone] 25 mg PO DAILY 07/06/18 10/11/22 ALPRAZolam [Xanax] 0.25 mg PO TID PRN 03/18/21 10/11/22 Finasteride [Proscar] 5 mg PO DAILY 03/18/21 10/11/22 Mometasone/Formoterol [Dulera 100 2 puff PO RT-BID 03/18/21 10/11/22 Mcg-5 Mcg Inhaler] Montelukast [Singulair] 10 mg PO HS 03/18/21 10/11/22 metFORMIN HCL 1,000 mg PO BID 03/18/21 10/11/22 Dulaglutide [Trulicity] 1.5 mg SQ TH 04/21/22 10/11/22 Isosorbide Mononitrate ER [Imdur] 30 mg PO DAILY 04/21/22 10/11/22 buPROPion HCL [buPROPion HCL Xl] 150 mg PO DAILY 04/21/22 10/11/22 Furosemide [Lasix] 40 mg PO BID 10/11/22 10/11/22 Insulin NPH Hum/Reg Insulin Hm 30 unit SQ DAILY 10/11/22 10/11/22 [Novolin 70-30 100 Unit/ml Vial] Metoprolol Tartrate [Lopressor] 12.5 mg PO BID 10/11/22 10/11/22 Multivit-Min/FA/Lycopen/Lutein 1 tab PO DAILY 10/11/22 10/11/22 [Centrum Silver Men Tablet] Tamsulosin [Flomax] 0.4 mg PO DAILY 10/11/22 10/11/22 Previous Rx's Medication Instructions Recorded Apixaban [Eliquis] 5 mg PO BID tab 01/19/18 Atorvastatin [Lipitor] 40 mg PO DAILY tab 01/19/18 Allergies Allergy/AdvReac Type Severity Reaction Status Date / Time No Known Allergies Allergy Verified 10/11/22 13:23 Review of Systems ROS Other: All systems not noted in ROS Statement are negative. <Edson Staley - Last Filed: 10/11/22 16:32> ROS Other: All systems not noted in ROS Statement are negative. <Jack Topete - Last Filed: 10/11/22 18:06> ROS Statement: Those systems with pertinent positive or pertinent negative responses have been documented in the HPI. Past Medical History Past Medical History: Asthma, Coronary Artery Disease (CAD), Cancer, CVA/TIA, Diabetes Mellitus, Hyperlipidemia, Hypertension, Myocardial Infarction ([place]), Prostate Disorder Additional Past Medical History / Comment(s): pos occult stool,hx SOME UPPER RIGHT CHEST PAIN. HX OF TIA, ENLARGED PROSTATE, [place] X3, Prostate CA Last Myocardial Infarction Date:: 10/01/2011 History of Any Multi-Drug Resistant Organisms: None Reported Past Surgical History: Coronary Bypass/CABG, Heart Catheterization With Stent, Hernia Repair Additional Past Surgical History / Comment(s): INGUINAL HERNIA, RT HEEL SURGERY WITH HARDWARE. BILATERAL CATARACTS.CABG-3 vessels Past Anesthesia/Blood Transfusion Reactions: No Reported Reaction Additional Past Anesthesia/Blood Transfusion Reaction / Comment(s): no hx blood transfusion Date of Last Stent Placement:: 10/01/2011 Past Psychological History: Anxiety, Depression Smoking Status: Never smoker Past Alcohol Use History: None Reported Past Drug Use History: None Reported - Past Family History Mother Family Medical History: Cancer, Diabetes Mellitus Additional Family Medical History / Comment(s): pancreas Father Family Medical History: Cancer <Edson Staley - Last Filed: 10/11/22 16:32> General Exam Limitations: no limitations General appearance: alert, in no apparent distress Head exam: Present: atraumatic, normocephalic, normal inspection Eye exam: Present: normal appearance, PERRL, EOMI. Absent: scleral icterus, conjunctival injection, periorbital swelling ENT exam: Present: normal exam, normal oropharynx, mucous membranes moist Neck exam: Present: normal inspection, full ROM. Absent: tenderness, meningismus, lymphadenopathy Respiratory exam: Present: normal lung sounds bilaterally. Absent: respiratory distress, wheezes, rales, rhonchi, stridor Cardiovascular Exam: Present: regular rate, normal rhythm, normal heart sounds. Absent: systolic murmur, diastolic murmur, rubs, gallop, clicks GI/Abdominal exam: Present: soft, tenderness (Right upper quadrant), normal bowel sounds. Absent: distended, guarding, rebound, rigid Extremities exam: Present: normal inspection, full ROM, normal capillary refill. Absent: tenderness, pedal edema, joint swelling, calf tenderness Back exam: Present: full ROM. Absent: tenderness Neurological exam: Present: alert, oriented X3, CN II-XII intact, reflexes normal. Absent: motor sensory deficit <Edson Staley - Last Filed: 10/11/22 16:32> Course Vital Signs 10/11/22 10/11/22 13:19 17:03 Temperature 97.7 F Pulse Rate 52 L 50 L Respiratory 20 18 Rate Blood Pressure 127/59 138/64 O2 Sat by Pulse 97 97 Oximetry Medical Decision Making - Lab Data Result diagrams: 10/11/22 15:32 10/11/22 15:32 <Edson Staley - Last Filed: 10/11/22 16:32> - Lab Data Result diagrams: 10/11/22 15:32 10/11/22 15:32 <Jack Topete - Last Filed: 10/11/22 18:06> - Medical Decision Making Was pt. sent in by a medical professional or institution (, PA, PUMPER GAUGER APPRENTICE, urgent care, hospital, or halfway...) When possible be specific @ -No Did you speak to anyone other than the patient for history (EMS, parent, family, police, friend...)? What history was obtained from this source @ -No Did you review nursing and triage notes (agree or disagree)? Why? @ -I reviewed and agree with nursing and triage notes Were old charts reviewed (outside hosp., previous admission, EMS record, old EKG, old radiological studies, urgent care reports/EKG's, halfway records)? Report findings @ -No old charts were reviewed Differential Diagnosis (chest pain, altered mental status, abdominal pain women, abdominal pain men, vaginal bleeding, weakness, fever, dyspnea, syncope, headache, dizziness, GI bleed, back pain, seizure, CVA, palpatations, mental health, musculoskeletal)? @ -Vegetable Canner, scalp contusion, depression, intra-abdominal trauma, abdominal pain, this list is not CONCLUSIVE EKG interpreted by me (3pts min.). @ -As above X-rays interpreted by me (1pt min.). @ -None done CT interpreted by me (1pt min.). @ -Pending CT U/S interpreted by me (1pt. min.). @ -None done What testing was considered but not performed or refused? (CT, X-rays, U/S, labs)? Why? @ -None What meds were considered but not given or refused? Why? @ -None Did you discuss the management of the patient with other professionals (professionals i.e. , PA, PUMPER GAUGER APPRENTICE, lab, RT, psych nurse, social science analyst, armature inspector, teacher, chief learning officer, rn case manager)? Give summary @ -No Was smoking cessation discussed for >3mins.? @ -No Was critical care preformed (if so, how long)? @ -No Were there social determinants of health that impacted care today? How? (Homelessness, low income, unemployed, alcoholism, drug addiction, transportation, low edu. Level, literacy, decrease access to med. care, penitentiary, rehab)? @ -No Was there de-escalation of care discussed even if they declined (Discuss DNR or withdrawal of care, Hospice)? DNR status @ -No What co-morbidities impacted this encounter? (DM, HTN, Smoking, COPD, CAD, Cancer, CVA, ARF, Chemo, Hep., AIDS, mental health diagnosis, sleep apnea, morbid obesity)? @ -None Was patient admitted / discharged? Hospital course, mention meds given and route, prescriptions, significant lab abnormalities, going to OR and other pertinent info. @ -Patient was a very labs are ordered. Patient is pending CT of brain, C- spine and abdominal pelvis case signed out to Dr. Topete Undiagnosed new problem with uncertain prognosis? @ -No Drug Therapy requiring intensive monitoring for toxicity (Heparin, Nitro, Insulin, Cardizem)? @ -No Were any procedures done? @ -No (Edson Staley) EKG interpreted by myself shows sinus bradycardia. Rate of 48. First 3 AV block. Left axis. Septal Q waves. No acute ST change. CT reports reviewed. Patient reevaluated. Patient is updated on results and plan. Patient will be discharged with follow-up with primary care physician and be provided started pack for pain medications. Clinical interpretation: Fall, head contusion Acute SUPERVISORY NOTE: I have reviewed all documentation, results, and performed the MDM in its entirety, which constitutes a substantive portion of the visit. (Jack Topete) - Lab Data Lab Results 10/11/22 10/11/22 10/11/22 Range/Units 14:24 15:32 15:32 WBC 7.5 (3.8-10.6) k/uL RBC 4.02 L (4.30-5.90) m/uL Hgb 12.4 L (13.0-17.5) gm/dL Hct 37.3 L (39.0-53.0) % MCV 92.9 (80.0-100.0) fL MCH 30.9 (25.0-35.0) pg MCHC 33.3 (31.0-37.0) g/dL RDW 12.3 (11.5-15.5) % Plt Count 192 (150-450) k/uL MPV 9.7 Neutrophils % 77 % Lymphocytes % 13 % Monocytes % 7 % Eosinophils % 2 % Basophils % 0 % Neutrophils # 5.8 (1.3-7.7) k/uL Lymphocytes # 1.0 (1.0-4.8) k/uL Monocytes # 0.5 (0-1.0) k/uL Eosinophils # 0.1 (0-0.7) k/uL Basophils # 0.0 (0-0.2) k/uL Sodium 137 (137-145) mmol/L Potassium 4.7 (3.5-5.1) mmol/L Chloride 104 (98-107) mmol/L Carbon Dioxide 28 (22-30) mmol/L Anion Gap 5 mmol/L BUN 20 (9-20) mg/dL Creatinine 1.29 H (0.66-1.25) mg/dL Est GFR (CKD-EPI)AfAm 62 (>60 ml/min/1.73 sqM) Est GFR (CKD-EPI)NonAf 54 (>60 ml/min/1.73 sqM) Glucose 144 H (74-99) mg/dL Calcium 9.0 (8.4-10.2) mg/dL Total Bilirubin 0.4 (0.2-1.3) mg/dL AST 23 (17-59) U/L ALT 24 (4-49) U/L Alkaline Phosphatase 64 (38-126) U/L Total Protein 5.9 L (6.3-8.2) g/dL Albumin 3.7 (3.5-5.0) g/dL Urine Color Light Yellow Urine Appearance Clear (Clear) Urine pH 5.0 (5.0-8.0) Ur Specific [place] 1.012 (1.001-1.035) Urine Protein Negative (Negative) Urine Glucose (UA) Negative (Negative) Urine Ketones Negative (Negative) Urine Blood Negative (Negative) Urine Nitrite Negative (Negative) Urine Bilirubin Negative (Negative) Urine Urobilinogen <2.0 (<2.0) mg/dL Ur Leukocyte Esterase Moderate H (Negative) Urine RBC 2 (0-5) /hpf Urine WBC 10 H (0-5) /hpf Ur Squamous Epith Cells <1 (0-4) /hpf Hyaline Casts 20 H (0-2) /lpf Urine Mucus Rare H (None) /hpf Disposition <Edson Staley - Last Filed: 10/11/22 16:32> Is patient prescribed a controlled substance at d/c from ED?: No Time of Disposition: 18:05 <Jack Topete - Last Filed: 10/11/22 18:06> Clinical Impression: Fall, Head contusion Disposition: HOME SELF-CARE Condition: Stable Instructions (If sedation given, give patient instructions): Head Injury (ED) Additional Instructions: Please do follow-up with your primary care physician in the next day or 2 for recheck. Return for confusion, difficulty breathing, increased pain, weakness, worsening or changing symptoms or other concerns. Referrals: Jung Bagley MD [Primary Care Provider] - 1-2 days
--- NOTE | 2022-10-11 17:01 | CT ---
EXAMINATION TYPE: CT brain cspine wo con CT DLP: 1563.5 mGycm, Automated exposure control for dose reduction was used. DATE OF EXAM: 10/11/2022 4:52 PM COMPARISON: 02/05/2018. CLINICAL INDICATION:Male, 77 years old with history of pain; fall, hit head TECHNIQUE: Brain: Multiple axial CT images of the brain were obtained without IV contrast. Cspine: Axial CT images from the skull base to the inferior aspect of T2 we obtained without intraven ous contrast. Coronal and sagittal reformatted images were also reviewed. FINDINGS: Brain: Extra-axial spaces: No abnormal extra-axial fluid collections. Ventricular system: Dilatation in proportion to cerebral atrophy. Cerebral parenchyma: Cerebral atrophy. No acute intraparenchymal hemorrhage or mass effect. The maharaj -white junction is well differentiated. Scattered hypoattenuating areas are seen within the white mat ter. Cerebellum: Unremarkable. Mass effect: No evidence of midline shift. Intracranial vasculature: Atherosclerotic calcifications of the intracranial vessels. Soft tissues: Normal. Calvarium/osseous structures: No depressed skull fracture. Paranasal sinuses and mastoid air cells: Clear. Visualized orbits: Orbital contents are intact. Cervical spine: Fracture: None. Osseous structures: Multilevel degenerative disc disease changes with endplate spurring and disc oste ophyte complex's. Vertebral alignment: Within normal limits. Spinal canal/Neural Foramina: No evidence of significant spinal canal narrowing. No evidence for sign ificant neural foraminal stenosis. Neck soft tissues: Prevertebral soft tissues are within normal limits. Other: The airway is patent. The lung apices are clear. IMPRESSION: 1. No acute intracranial process. 2. Nonspecific white matter changes, likely secondary to chronic small vessel ischemic disease. 3. No evidence of cervical spine fracture. 4. Mild multilevel degenerative disc disease.
[2022-10-11 17:03] VITALS: RESP 18
--- NOTE | 2022-10-11 17:29 | CT ---
EXAMINATION TYPE: CT ChestAbdPelvis w con CT DLP: 2026.9 mGycm, Automated exposure control for dose reduction was used. DATE OF EXAM: 10/11/2022 4:55 PM COMPARISON: None. CLINICAL INDICATION:Male, 77 years old with history of trauma, right side pain; PHH, fall right side rib pain Technique: Multiple axial images of the chest, abdomen, and pelvis were obtained. Two-dimensional cor onal and sagittal reconstructions were obtained. Contrast used:80 mL of Isovue 300 with IV Contrast, Oral contrast used: without Oral Contrast Findings: CHEST: LUNGS/ PLEURA: The lung parenchyma appears unremarkable. AIRWAY: Patent and unremarkable. HEART: The heart is mildly enlarged for size. Aortic valve leaflet calcifications. Severe coronary ar casandra calcifications. MEDIASTINUM: No gross evidence of adenopathy. VASCULATURE: No aortic aneurysm. MUSCULOSKELETAL: No acute osseous abnormalities. Multiple remote appearing rib fractures on the right involving multiple levels including ribs 2, 4, 5, 6, 7, 8, 9. Sternotomy wires are present. No defin itive acute fracture visualized. Remote left rib 3 fracture. SOFT TISSUES/LYMPH NODES: Unremarkable. LOWER NECK: No significant findings. ABDOMEN: ABDOMEN LIVER: Unremarkable GALLBLADDER AND BILE DUCTS: Unremarkable. PANCREAS: Unremarkable. SPLEEN: Unremarkable. ADRENAL GLANDS: Unremarkable. KIDNEYS AND URETERS: No evidence of hydronephrosis or renal calculus. The ureters are unremarkable. PELVIS BLADDER: Unremarkable REPRODUCTIVE: Unremarkable. ABDOMEN & PELVIS STOMACH AND BOWEL: No evidence of bowel obstruction. PERITONEUM: No evidence of pneumoperitoneum or free fluid. VASCULATURE: No evidence of aortic aneurysm. MUSCULOSKELETAL: No acute osseous abnormalities LYMPH NODES: No gross evidence for lymphadenopathy. SOFT TISSUE/ABDOMINAL WALL: Unremarkable IMPRESSION: 1. No evidence for acute thoracic or abdominal process. 2. Multiple remote appearing right-sided rib fractures. No obvious acute right-sided rib fracture.
[2022-10-11] MEDS ORDERED: ACET/COD 300 MG/30 MG STARTER PACK 6 TAB BTL PO STA (18:05)
[2022-10-11 18:48] VITALS: BP 137/66; PULSE 48; TEMP 98
== END 2022-10-11 18:51 | disposition home or self-care (01) ==
LOC: EC 13:17
DX: S00.93XA Contusion of unspecified part of head, initial encounter (principal); J45.909 Unspecified asthma, uncomplicated; I25.10 Atherosclerotic heart disease of native coronary artery without angina pectoris; E11.9 Type 2 diabetes mellitus without complications; I10 Essential (primary) hypertension; I25.2 Old myocardial infarction; Z86.73 Personal history of transient ischemic attack (TIA), and cerebral infarction without residual deficits; F32.A Depression, unspecified; F41.9 Anxiety disorder, unspecified; Z79.84 Long term (current) use of oral hypoglycemic drugs; Z79.4 Long term (current) use of insulin; Z79.51 Long term (current) use of inhaled steroids; Z79.899 Other long term (current) drug therapy; W01.0XXA Fall on same level from slipping, tripping and stumbling without subsequent striking against object, initial encounter
CPT/HCPCS: 36415; 80053; 85025; 81001; 72125; 70450; 71260; 74177; 99284; Q9967; 93005

== ENCOUNTER → 2022-12-23 | Outpatient (CLI) | payer MEDICARE, BC ==
[2022-12-23 16:44] LABS: ALT 28 U/L (10-49); AST 20 U/L (14-35); Albumin 4.3 d/dL (3.8-4.9); Albumin/Globulin Ratio 1.95 Ratio (1.60-3.17); Alkaline Phosphatase 75 U/L (41-126); BUN/Creat Ratio 16.43 Ratio (12.00-20.00); Carbon Dioxide 29.3 mmol/L (21.6-31.8); Chloride 102 mmol/L (96-109); Chol/HDL Ratio 2.24 Ratio; Globulin 2.2 d/dL (1.6-3.3); Glucose 144 mg/dL (70-110); LDL Cholesterol,Calculated 52.2 mg/dL (0.0-131.0); Potassium 4.8 mmol/L (3.5-5.5); Sodium 142 mmol/L (135-145); Total Bilirubin 0.4 mg/dL (0.3-1.2); Total Protein 6.5 d/dL (6.2-8.2); VLDL Calculation 17.98 mg/dL (5.00-40.00)
== END | disposition home or self-care (01) ==
LOC: LABWHC1 08:52
PROVIDERS: ATTEND Internal Medicine Endocrinology, Diabetes & Metabolism
DX: E11.65 Type 2 diabetes mellitus with hyperglycemia (principal)
CPT/HCPCS: 36415; 80053; 80061; 82043; 82570; 83036; 84443

== ENCOUNTER 2023-02-21 17:27 | Emergency (ER) | payer MEDICARE, BC ==
[2023-02-21 17:33] VITALS: RESP 20; TEMP 97.9
--- NOTE | 2023-02-21 18:13 | XR ---
EXAMINATION TYPE: XR ribs RT w pa chest xray DATE OF EXAM: 02/21/2023 COMPARISON: 03/29/2022 HISTORY: 77-year-old male fall, trauma, right rib pain TECHNIQUE: 5 views FINDINGS: Median sternotomy wires and post-CABG clips. Heart borderline in size. Aorta and pulmonary vasculatur e are within normal limits. Some strandy atelectasis at the bilateral lung bases. No consolidation, p neumothorax, or pleural effusion. Redemonstrated old right posterolateral rib fracture of the fifth through eighth ribs. Anterior ninth rib fracture deformity also redemonstrated. No new displaced rib fracture is identified. IMPRESSION: Multiple old healed right-sided rib fracture deformities including ribs 5 through 10. No new displace d right rib fracture identified. Strandy bibasilar atelectasis.
[2023-02-21] MEDS ORDERED: KETOROLAC 15 MG/ML 1 ML VIAL IM STA (18:24)
[2023-02-21] MEDS ORDERED: LIDOCAINE 5% PATCH TOPICAL SCH (18:30)
--- NOTE | 2023-02-21 18:44 | ED ---
General Adult HPI - General Chief complaint: Fall Stated complaint: R side rib/lung pain Time Seen by Provider: 02/21/23 17:45 Source: patient Mode of arrival: ambulatory Limitations: no limitations - History of Present Illness Initial comments: This is a 77-year-old male with a past medical history including hypertension, diabetes as well as previous CABG presents emergency department after a fall and right-sided rib pain. The patient stated that he fell onto the ground for a ground-level fall on the right side of his chest wall approximately 3 days ago. The patient did not his head and did not lose consciousness. The patient stated that he had continued pain on the right anterior chest wall therefore he came to the emergency department for evaluation. The patient denied any other acute pain or complaints at this time. - Related Data Home Medications Medication Instructions Recorded Confirmed Citalopram Hydrobromide [CeleXA] 40 mg PO DAILY 03/21/14 10/11/22 Insulin NPH Hum/Reg Insulin Hm 32 unit SQ HS 02/05/18 10/11/22 [NovoLIN 70-30 100 UNIT/ML VIAL] Spironolactone [Aldactone] 25 mg PO DAILY 07/06/18 10/11/22 ALPRAZolam [Xanax] 0.25 mg PO TID PRN 03/18/21 10/11/22 Finasteride [Proscar] 5 mg PO DAILY 03/18/21 10/11/22 Mometasone/Formoterol [Dulera 100 2 puff PO RT-BID 03/18/21 10/11/22 Mcg-5 Mcg Inhaler] Montelukast [Singulair] 10 mg PO HS 03/18/21 10/11/22 metFORMIN HCL 1,000 mg PO BID 03/18/21 10/11/22 Dulaglutide [Trulicity] 1.5 mg SQ TH 04/21/22 10/11/22 Isosorbide Mononitrate ER [Imdur] 30 mg PO DAILY 04/21/22 10/11/22 buPROPion HCL [buPROPion HCL Xl] 150 mg PO DAILY 04/21/22 10/11/22 Furosemide [Lasix] 40 mg PO BID 10/11/22 10/11/22 Insulin NPH Hum/Reg Insulin Hm 30 unit SQ DAILY 10/11/22 10/11/22 [Novolin 70-30 100 Unit/ml Vial] Metoprolol Tartrate [Lopressor] 12.5 mg PO BID 10/11/22 10/11/22 Multivit-Min/FA/Lycopen/Lutein 1 tab PO DAILY 10/11/22 10/11/22 [Centrum Silver Men Tablet] Tamsulosin [Flomax] 0.4 mg PO DAILY 10/11/22 10/11/22 Previous Rx's Medication Instructions Recorded Apixaban [Eliquis] 5 mg PO BID tab 01/19/18 Atorvastatin [Lipitor] 40 mg PO DAILY tab 01/19/18 Ketorolac [Toradol] 10 mg PO TID #30 tab 02/21/23 Lidocaine 5% Patch [Lidoderm] 1 patch TOPICAL DAILY #14 patch 02/21/23 methocarbamoL [Robaxin-750] 750 mg PO TID #30 tab 02/21/23 Allergies Allergy/AdvReac Type Severity Reaction Status Date / Time No Known Allergies Allergy Verified 02/21/23 17:33 Review of Systems ROS Statement: Those systems with pertinent positive or pertinent negative responses have been documented in the HPI. ROS Other: All systems not noted in ROS Statement are negative. Past Medical History Past Medical History: Asthma, Coronary Artery Disease (CAD), Cancer, CVA/TIA, Diabetes Mellitus, Hyperlipidemia, Hypertension, Myocardial Infarction ([place]), Prostate Disorder Additional Past Medical History / Comment(s): pos occult stool,hx SOME UPPER RIGHT CHEST PAIN. HX OF TIA, ENLARGED PROSTATE, [place] X3, Prostate CA Last Myocardial Infarction Date:: 10/01/2011 History of Any Multi-Drug Resistant Organisms: None Reported Past Surgical History: Coronary Bypass/CABG, Heart Catheterization With Stent, Hernia Repair Additional Past Surgical History / Comment(s): INGUINAL HERNIA, RT HEEL SURGERY WITH HARDWARE. BILATERAL CATARACTS.CABG-3 vessels Past Anesthesia/Blood Transfusion Reactions: No Reported Reaction Additional Past Anesthesia/Blood Transfusion Reaction / Comment(s): no hx blood transfusion Date of Last Stent Placement:: 10/01/2011 Past Psychological History: Anxiety, Depression Smoking Status: Never smoker Past Alcohol Use History: None Reported Past Drug Use History: None Reported - Past Family History Mother Family Medical History: Cancer, Diabetes Mellitus Additional Family Medical History / Comment(s): pancreas Father Family Medical History: Cancer General Exam Limitations: no limitations General appearance: alert, in no apparent distress Head exam: Present: atraumatic, normocephalic, normal inspection Eye exam: Present: normal appearance, PERRL Pupils: Present: normal accommodation ENT exam: Present: normal exam, normal oropharynx, mucous membranes moist Neck exam: Present: normal inspection, full ROM Respiratory exam: Present: normal lung sounds bilaterally, chest wall tenderness (TTP over the anterior right chest wall) Cardiovascular Exam: Present: regular rate, normal rhythm, normal heart sounds GI/Abdominal exam: Present: soft, normal bowel sounds Extremities exam: Present: normal inspection, full ROM Back exam: Present: normal inspection, full ROM Neurological exam: Present: alert, oriented X3, CN II-XII intact Psychiatric exam: Present: normal affect, normal mood Skin exam: Present: warm, dry Course Vital Signs 02/21/23 17:30 Temperature 97.9 F Pulse Rate 52 L Respiratory 20 Rate Blood Pressure 143/56 O2 Sat by Pulse 95 Oximetry Medical Decision Making - Medical Decision Making Was pt. sent in by a medical professional or institution (, PA, LOG CHAIN FEEDER, urgent care, hospital, or retirement...) When possible be specific @ -No Did you speak to anyone other than the patient for history (EMS, parent, family, police, friend...)? What history was obtained from this source @ -No Did you review nursing and triage notes (agree or disagree)? Why? @ -I reviewed and agree with nursing and triage notes Were old charts reviewed (outside hosp., previous admission, EMS record, old EKG, old radiological studies, urgent care reports/EKG's, retirement records)? Report findings @ -No old charts were reviewed Differential Diagnosis (chest pain, altered mental status, abdominal pain women, abdominal pain men, vaginal bleeding, weakness, fever, dyspnea, syncope, headache, dizziness, GI bleed, back pain, seizure, CVA, palpatations, mental health)? @ -Rib fracture, rib contusion, pneumothorax, lung contusion EKG interpreted by me (3pts min.). @ -None X-rays interpreted by me (1pt min.). @ -Chest x-ray and rib x-ray were obtained and were interpreted by myself showing multiple old healed right-sided rib fracture deformities including ribs 5 through 10 however there were no new displaced right rib fractures identified. CT interpreted by me (1pt min.). @ -None done U/S interpreted by me (1pt. min.). @ -None done What testing was considered but not performed or refused? (CT, X-rays, U/S, labs)? Why? @ -None What meds were considered but not given or refused? Why? @ -None Did you discuss the management of the patient with other professionals (professionals i.e. Dr., PA, LOG CHAIN FEEDER, lab, RT, psych nurse, clinical social worker, threshing operator, teacher, senior compliance officer, spring encaser)? Give summary @ -No Was smoking cessation discussed for >3mins.? @ -No Was critical care preformed (if so, how long)? @ -No Were there social determinants of health that impacted care today? How? (Homelessness, low income, unemployed, alcoholism, drug addiction, transportation, low edu. Level, literacy, decrease access to med. care, long term, rehab)? @ -No Was there de-escalation of care discussed even if they declined (Discuss DNR or withdrawal of care, Hospice)? DNR status @ -No What co-morbidities impacted this encounter? (DM, HTN, Smoking, COPD, CAD, Cancer, CVA, ARF, Chemo, Hep., AIDS, mental health diagnosis, sleep apnea, morbid obesity)? @ -Hypertension, diabetes, previous CABG Was patient admitted / discharged? Hospital course, mention meds given and route, prescriptions, significant lab abnormalities, going to OR and other pertinent info. @ -The patient was seen and evaluated emergency department. Physical exam, the patient was resting in bed without any acute distress. Vital signs admission were stable. X-ray was obtained and did not show any new fractures but however did show old rib fractures. The patient likely a rib contusion and was given Toradol as well as a lidocaine patch as he did drive to the emergency department. The patient was given a prescription for Toradol, lidocaine patches and Robaxin. The patient was stable for discharge home and was told to follow- up with his primary care physician for further workup and evaluation. The patient was agreeable to this and all discretions were answered. The patient was discharged home in stable condition. Undiagnosed new problem with uncertain prognosis? @ -No Drug Therapy requiring intensive monitoring for toxicity (Heparin, Nitro, Insulin, Cardizem)? @ -No Were any procedures done? @ -No Diagnosis/symptom? @ -Fall, right rib contusion Acute, or Chronic, or Acute on Chronic? @ -Acute Uncomplicated (without systemic symptoms) or Complicated (systemic symptoms)? @ -Uncomplicated Side effects of treatment? @ -No Exacerbation, Progression, or Severe Exacerbation? @ -No Poses a threat to life or bodily function? How? (Chest pain, [place], [place], pneumonia, PE, COPD, DKA, ARF, appy, cholecystitis, CVA, Diverticulitis, Homicidal, Suicidal, threat to staff... and all critical care pts) @ -No Disposition Clinical Impression: Fall, Rib contusion Disposition: HOME SELF-CARE Condition: Stable Instructions (If sedation given, give patient instructions): Fall Prevention for Older Adults (ED), Rib Contusion (ED) Prescriptions: Lidocaine 5% Patch [Lidoderm] 1 patch TOPICAL DAILY #14 patch methocarbamoL [Robaxin-750] 750 mg PO TID #30 tab Ketorolac [Toradol] 10 mg PO TID #30 tab Is patient prescribed a controlled substance at d/c from ED?: No Referrals: Jung Bagley MD [Primary Care Provider] - 1-2 days Time of Disposition: 18:30
[2023-02-21 19:06] VITALS: BP 141/89; PULSE 54
== END 2023-02-21 19:05 | disposition home or self-care (01) ==
LOC: EC 17:27
DX: S20.211A Contusion of right front wall of thorax, initial encounter (principal); E11.9 Type 2 diabetes mellitus without complications; E78.5 Hyperlipidemia, unspecified; I10 Essential (primary) hypertension; I25.10 Atherosclerotic heart disease of native coronary artery without angina pectoris; I25.2 Old myocardial infarction; J45.909 Unspecified asthma, uncomplicated; F41.9 Anxiety disorder, unspecified; F32.A Depression, unspecified; Z95.1 Presence of aortocoronary bypass graft; Z79.4 Long term (current) use of insulin; Z79.51 Long term (current) use of inhaled steroids; Z79.84 Long term (current) use of oral hypoglycemic drugs; Z79.899 Other long term (current) drug therapy; W18.30XA Fall on same level, unspecified, initial encounter
CPT/HCPCS: 71101; 99284; 96372; J1885

== ENCOUNTER → 2023-06-29 | Outpatient (CLI) | payer MEDICARE, BC ==
[2023-06-29 16:58] LABS: ALT 24 U/L (10-49); AST 19 U/L (14-35); Albumin 4.2 g/dL (3.8-4.9); Albumin/Globulin Ratio 1.91 Ratio (1.60-3.17); Alkaline Phosphatase 71 U/L (41-126); Blood Urea Nitrogen 19.8 mg/dL (9.0-27.0); Calcium 9.9 mg/dL (8.7-10.3); Chloride 102 mmol/L (96-109); Chol/HDL Ratio 1.92 Ratio; Globulin 2.2 g/dL (1.6-3.3); Glucose 124 mg/dL (70-110); LDL Cholesterol,Calculated 35.5 mg/dL (0.0-131.0); Potassium 4.9 mmol/L (3.5-5.5); Sodium 141 mmol/L (135-145); Total Bilirubin 0.4 mg/dL (0.3-1.2); Total Protein 6.4 g/dL (6.2-8.2)
[2023-06-29 18:42] LABS: Urine Creatinine 75.2 mg/dL (39.0-259.0)
== END | disposition home or self-care (01) ==
LOC: LABWHC1 08:54
PROVIDERS: ATTEND Internal Medicine Endocrinology, Diabetes & Metabolism
DX: E11.65 Type 2 diabetes mellitus with hyperglycemia (principal)
CPT/HCPCS: 36415; 80053; 80061; 82043; 82570; 83036; 84443

== ENCOUNTER 2023-07-10 11:23 | Emergency (ER) | payer MEDICARE, BC ==
[2023-07-10 11:48] VITALS: RESP 16; TEMP 97.9
[2023-07-10 12:13] VITALS: PULSE 49
--- NOTE | 2023-07-10 12:47 | XR ---
EXAMINATION TYPE: XR knee complete LT DATE OF EXAM: 07/10/2023 12:30 PM CLINICAL INDICATION:Male, 78 years old with history of pain; [facility] COMPARISON: None. TECHNIQUE: XR knee complete LT; examined in Frontal, lateral and oblique projections. FINDINGS: No evidence of any acute osseous pathology, soft tissue swelling, or joint effusion is no marcel. Tricompartmental osteophyte formation involving the femoral condyles, tibial plateau and patella . Severe joint space narrowing the patellofemoral joint. Sclerosis of the arterial vasculature. Chond rocalcinosis of the both menisci. IMPRESSION: 1. No acute osseous pathology. 2. Severe osteoarthritic changes worse in the patellofemoral joint..
--- NOTE | 2023-07-10 12:52 | CT ---
EXAMINATION TYPE: CT brain cspine wo con DATE OF EXAM: 07/10/2023 COMPARISON: 10/11/2022 HISTORY: 78-year-old male pain after fall yesterday CT DLP: 1537.2 mGycm Automated exposure control for dose reduction was used. Technique: Examination of the head was done in axial plane without intravenous contrast. Coronal and sagittal reconstructions performed. CT of the cervical spine was obtained in axial plane without intravenous injection of contrast mater ial. Coronal and sagittal reformatted images were obtained from the axial views for evaluation of f ractures, spinal alignment and canal. FINDINGS: Head: There is no evidence of acute intracranial hemorrhage, acute ischemic changes, mass, mass-effect, or extra-axial fluid collection. There is no effacement of cerebral sulci or basal subarachnoid cister ns. There is no hydrocephalus. There is no midline shift. Blair-white matter distinction is preserv ed. Atherosclerotic calcifications in the carotid siphons. Mild patchy white matter hypodensities in both cerebral hemispheres. Either prominent perivascular space or old lacunar infarct right basal ganglia . Paranasal sinuses and mastoid air cells well pneumatized. Orbits and globes are intact. Cervical spine: No craniocervical junction anomaly, predental space widening, or prevertebral soft tissue swelling. Moderate disc/endplate degenerative change as well as facet and uncovertebral joint arthropathy is pr esent throughout. Alignment is maintained. No acute fracture is seen. By CT, no significant spinal canal stenosis is identified. Variable mild to moderate bilateral neurof oraminal stenoses. Sagittal and coronal reformatted images confirm above findings. COMBINED IMPRESSION: 1. Mild burden of chronic small vessel ischemic disease. No acute intracranial abnormality seen. 2. No acute fracture or malalignment of the cervical spine. Scattered moderate spondylotic change mid to lower cervical spine.
[2023-07-10 13:01] VITALS: BP 130/46
--- NOTE | 2023-07-10 13:08 | ED ---
Fall HPI - General Chief Complaint: Fall Stated Complaint: Fall Time Seen by Provider: 07/10/23 11:46 Source: patient, RN notes reviewed Mode of arrival: wheelchair Limitations: physical limitation - History of Present Illness Initial Comments: 78-year-old male presents emergency department tingling of a fall. Patient states that he was in [place] yesterday states that he went to step over some snow onto a curb, states that he fell. Patient states he fell forward striking his left knee he did strike his face, broke his glasses. Patient is on antic oagulants. Patient denies any headache, dizziness, neck pain he states he also has left knee pain patient does use a cane currently to help ambulate. Denies any hip pain - Related Data Home Medications Medication Instructions Recorded Confirmed Citalopram Hydrobromide [CeleXA] 40 mg PO DAILY 03/21/14 10/11/22 Insulin NPH Hum/Reg Insulin Hm 32 unit SQ HS 02/05/18 10/11/22 [NovoLIN 70-30 100 UNIT/ML VIAL] Spironolactone [Aldactone] 25 mg PO DAILY 07/06/18 10/11/22 ALPRAZolam [Xanax] 0.25 mg PO TID PRN 03/18/21 10/11/22 Finasteride [Proscar] 5 mg PO DAILY 03/18/21 10/11/22 Mometasone/Formoterol [Dulera 100 2 puff PO RT-BID 03/18/21 10/11/22 Mcg-5 Mcg Inhaler] Montelukast [Singulair] 10 mg PO HS 03/18/21 10/11/22 metFORMIN HCL 1,000 mg PO BID 03/18/21 10/11/22 Dulaglutide [Trulicity] 1.5 mg SQ TH 04/21/22 10/11/22 Isosorbide Mononitrate ER [Imdur] 30 mg PO DAILY 04/21/22 10/11/22 buPROPion HCL [buPROPion HCL Xl] 150 mg PO DAILY 04/21/22 10/11/22 Furosemide [Lasix] 40 mg PO BID 10/11/22 10/11/22 Insulin NPH Hum/Reg Insulin Hm 30 unit SQ DAILY 10/11/22 10/11/22 [Novolin 70-30 100 Unit/ml Vial] Metoprolol Tartrate [Lopressor] 12.5 mg PO BID 10/11/22 10/11/22 Mv-Min/Folic/K1/Lycopen/Lutein 1 tab PO DAILY 10/11/22 10/11/22 [Centrum Silver Men Tablet] Tamsulosin [Flomax] 0.4 mg PO DAILY 10/11/22 10/11/22 Previous Rx's Medication Instructions Recorded Apixaban [Eliquis] 5 mg PO BID tab 01/19/18 Atorvastatin [Lipitor] 40 mg PO DAILY tab 01/19/18 Ketorolac [Toradol] 10 mg PO TID #30 tab 02/21/23 Lidocaine 5% Patch [Lidoderm] 1 patch TOPICAL DAILY #14 patch 02/21/23 methocarbamoL [Robaxin-750] 750 mg PO TID #30 tab 02/21/23 Allergies Allergy/AdvReac Type Severity Reaction Status Date / Time No Known Allergies Allergy Verified 07/10/23 11:41 Review of Systems ROS Statement: Those systems with pertinent positive or pertinent negative responses have been documented in the HPI. ROS Other: All systems not noted in ROS Statement are negative. Past Medical History Past Medical History: Asthma, Coronary Artery Disease (CAD), Cancer, CVA/TIA, Diabetes Mellitus, Hyperlipidemia, Hypertension, Myocardial Infarction ([place]), Prostate Disorder Additional Past Medical History / Comment(s): pos occult stool,hx SOME UPPER RIGHT CHEST PAIN. HX OF TIA, ENLARGED PROSTATE, [place] X3, Prostate CA Last Myocardial Infarction Date:: 10/01/2011 History of Any Multi-Drug Resistant Organisms: None Reported Past Surgical History: Coronary Bypass/CABG, Heart Catheterization With Stent, Hernia Repair Additional Past Surgical History / Comment(s): INGUINAL HERNIA, RT HEEL SURGERY WITH HARDWARE. BILATERAL CATARACTS.CABG-3 vessels Past Anesthesia/Blood Transfusion Reactions: No Reported Reaction Additional Past Anesthesia/Blood Transfusion Reaction / Comment(s): no hx blood transfusion Date of Last Stent Placement:: 10/01/2011 Past Psychological History: Anxiety, Depression Smoking Status: Never smoker Past Alcohol Use History: None Reported Past Drug Use History: None Reported - Past Family History Mother Family Medical History: Cancer, Diabetes Mellitus Additional Family Medical History / Comment(s): pancreas Father Family Medical History: Cancer General Exam Limitations: no limitations General appearance: alert, in no apparent distress Head exam: Present: atraumatic, normocephalic, normal inspection Eye exam: Present: normal appearance, PERRL, EOMI, periorbital swelling (Minimal right with ecchymosis). Absent: scleral icterus, conjunctival injection, periorbital tenderness ENT exam: Present: normal exam, normal oropharynx, mucous membranes moist Neck exam: Present: normal inspection, full ROM. Absent: tenderness, meningismus, lymphadenopathy Respiratory exam: Present: normal lung sounds bilaterally. Absent: respiratory distress, wheezes, rales, rhonchi, stridor Cardiovascular Exam: Present: normal rhythm, bradycardia, normal heart sounds. Absent: systolic murmur, diastolic murmur, rubs, gallop, clicks Extremities exam: Present: other (Left knee there is swelling noted mild ecchymosis, full range of motion) Course Vital Signs 07/10/23 07/10/23 07/10/23 11:41 12:02 12:39 Temperature 97.9 F Pulse Rate 43 L 49 L 49 L Respiratory 16 Rate Blood Pressure 98/43 117/51 130/46 O2 Sat by Pulse 94 L Oximetry Medical Decision Making - Medical Decision Making Was pt. sent in by a medical professional or institution (, PA, ENGINEERING OPERATIONS LEADER, urgent care, hospital, or snf...) When possible be specific @ -No Did you speak to anyone other than the patient for history (EMS, parent, family, police, friend...)? What history was obtained from this source @ -No Did you review nursing and triage notes (agree or disagree)? Why? @ -I reviewed and agree with nursing and triage notes Were old charts reviewed (outside hosp., previous admission, EMS record, old EKG, old radiological studies, urgent care reports/EKG's, snf records)? Report findings @ -No old charts were reviewed Differential Diagnosis (chest pain, altered mental status, abdominal pain women, abdominal pain men, vaginal bleeding, weakness, fever, dyspnea, syncope, headache, dizziness, GI bleed, back pain, seizure, CVA, palpatations, mental health, musculoskeletal)? @ -Fall, head injury, intracranial hemorrhage, knee contusion, leg fracture EKG interpreted by me (3pts min.). @ -[None X-rays interpreted by me (1pt min.). @ -X-ray left knee mild soft tissue swelling, no acute fracture there is arthritic changes noted CT interpreted by me (1pt min.). @ -CT brain, C-spine no acute intracranial hemorrhage, skull fracture, cervical fracture malalignment U/S interpreted by me (1pt. min.). @ -None done What testing was considered but not performed or refused? (CT, X-rays, U/S, labs)? Why? @ -None What meds were considered but not given or refused? Why? @ -None Did you discuss the management of the patient with other professionals (professionals i.e. , PA, ENGINEERING OPERATIONS LEADER, lab, RT, psych nurse, social services, ergonomics engineer, teacher, infantry officer, geriatric case manager)? Give summary @ -No Was smoking cessation discussed for >3mins.? @ -No Was critical care preformed (if so, how long)? @ -No Were there social determinants of health that impacted care today? How? (Homelessness, low income, unemployed, alcoholism, drug addiction, transportation, low edu. Level, literacy, decrease access to med. care, retirement, rehab)? @ -No Was there de-escalation of care discussed even if they declined (Discuss DNR or withdrawal of care, Hospice)? DNR status @ -No What co-morbidities impacted this encounter? (DM, HTN, Smoking, COPD, CAD, Cancer, CVA, ARF, Chemo, Hep., AIDS, mental health diagnosis, sleep apnea, morbid obesity)? @ -None Was patient admitted / discharged? Hospital course, mention meds given and route, prescriptions, significant lab abnormalities, going to OR and other pertinent info. @ -discharge patient presented for a fall that happened yesterday. CT and x- rays do not show any acute process he does have mild knee effusion on the left. He'll follow-up with orthopedics. Patient will take [id number] analgesics. Patient had mild bradycardia is asymptomatic he is advised to follow-up with his ski patroller, primarily regarding his beta blockers. He states he'll closely monitor at home. Undiagnosed new problem with uncertain prognosis? @ -No Drug Therapy requiring intensive monitoring for toxicity (Heparin, Nitro, Insulin, Cardizem)? @ -No Were any procedures done? @ -No Diagnosis/symptom? @ -Fall, facial contusion, left knee contusion Acute, or Chronic, or Acute on Chronic? @ -Acute Uncomplicated (without systemic symptoms) or Complicated (systemic symptoms)? @ -Uncomplicated Side effects of treatment? @ -No Exacerbation, Progression, or Severe Exacerbation? @ -No Poses a threat to life or bodily function? How? (Chest pain, [place], [place], pneumonia, PE, COPD, DKA, ARF, appy, cholecystitis, CVA, Diverticulitis, Homicidal, Suicidal, threat to staff... and all critical care pts) @ -No Disposition Clinical Impression: Fall, Facial contusion, Contusion of left knee Disposition: HOME SELF-CARE Condition: Stable Instructions (If sedation given, give patient instructions): Head Injury (ED) Additional Instructions: Please return to the Emergency Department if symptoms worsen or any other concerns. Is patient prescribed a controlled substance at d/c from ED?: No Referrals: Jung Bagley MD [Primary Care Provider] - 1-2 days Nicole Riley DO [Doctor of Osteopathic Medicine] - 1-2 days Time of Disposition: 13:07
== END 2023-07-10 13:42 | disposition home or self-care (01) ==
LOC: EC 11:23
DX: S00.83XA Contusion of other part of head, initial encounter (principal); S80.02XA Contusion of left knee, initial encounter; I10 Essential (primary) hypertension; I25.10 Atherosclerotic heart disease of native coronary artery without angina pectoris; I25.2 Old myocardial infarction; F41.9 Anxiety disorder, unspecified; E78.5 Hyperlipidemia, unspecified; F32.A Depression, unspecified; J45.909 Unspecified asthma, uncomplicated; Z79.51 Long term (current) use of inhaled steroids; Z79.84 Long term (current) use of oral hypoglycemic drugs; Z79.4 Long term (current) use of insulin; Z79.899 Other long term (current) drug therapy; Z95.1 Presence of aortocoronary bypass graft; W10.8XXA Fall (on) (from) other stairs and steps, initial encounter
CPT/HCPCS: 70450; 72125; 99284

== ENCOUNTER 2023-08-28 15:02 | Emergency (ER) | payer MEDICARE, BC ==
[2023-08-28 15:15] VITALS: TEMP 98.1
[2023-08-28 15:51] LABS: Basophils % (A) 0 %; Eosinophils # (A) 0.1 k/uL (0-0.7); Eosinophils % (A) 2 %; HCT 36.9 % (39.0-53.0); HGB 12.5 gm/dL (13.0-17.5); Lymphocytes # (A) 0.8 k/uL (1.0-4.8); Lymphocytes % (A) 10 %; MCH 32.7 pg (25.0-35.0); MCHC 33.8 g/dL (31.0-37.0); MCV 96.7 fL (80.0-100.0); Mean Platelet Volume 9.7; Monocytes # (A) 0.5 k/uL (0-1.0); Monocytes % (A) 6 %; Neutrophils # (A) 6.4 k/uL (1.3-7.7); Neutrophils % (A) 80 %; Platelet Count 205 k/uL (150-450); RBC 3.82 m/uL (4.30-5.90); RDW 12.3 % (11.5-15.5)
[2023-08-28 15:56] LABS: ALT 21 U/L (4-49); AST 26 U/L (17-59); African American GFR (CKD) 51 (>60 ml/min/1.73 sqM); Albumin 3.8 g/dL (3.5-5.0); Alkaline Phosphatase 72 U/L (38-126); Anion Gap 10 mmol/L; Blood Urea Nitrogen 25 mg/dL (9-20); Calcium 8.9 mg/dL (8.4-10.2); Carbon Dioxide 21 mmol/L (22-30); Chloride 106 mmol/L (98-107); Glucose 152 mg/dL (74-99); Magnesium 1.9 mg/dL (1.6-2.3); Non-African American GFR(CKD) 44 (>60 ml/min/1.73 sqM); Potassium 5.2 mmol/L (3.5-5.1); Sodium 137 mmol/L (137-145); Total Bilirubin 0.5 mg/dL (0.2-1.3); Total Protein 5.9 g/dL (6.3-8.2)
[2023-08-28 16:00] LABS: INR 1.2 (<1.2); Partial Thromboplastin Time 26.1 sec (22.0-30.0); Prothrombin Time 12.5 sec (10.0-12.5)
--- NOTE | 2023-08-28 16:10 | CT ---
EXAMINATION TYPE: CT brain chivoine wo con DATE OF EXAM: 08/28/2023 COMPARISON: 07/10/2023. HISTORY: fall. pt is on eliquis and hit his head, lac to forehead. CT DLP: 1690.2 mGycm Automated exposure control for dose reduction was used. TECHNIQUE: CT scan of the head and cervical spine are performed without contrast. FINDINGS: There is no acute intracranial hemorrhage, mass effect, or midline shift identified. The ventricles and sulci are within normal limits in size. The globes are intact and the visualized sin uses are clear. Cervical spine is visualized in its entirety from C1 through upper thoracic levels and demonstrates s atisfactory alignment without evidence of acute fracture or dislocation. Scattered degenerative disc and facet changes are otherwise seen throughout the spine. Prevertebral soft tissue appears within no rmal limits. The C1-C2 articulation is unremarkable. IMPRESSION: 1. There is no acute fracture or dislocation evident in the cervical spine. 2. No acute intracranial hemorrhage, mass effect, or midline shift is seen.
--- NOTE | 2023-08-28 16:19 | ED ---
General Adult HPI - General Chief complaint: Head Injury Stated complaint: Fall Time Seen by Provider: 08/28/23 15:10 Source: patient, EMS Mode of arrival: EMS Limitations: no limitations - History of Present Illness Initial comments: 78-year-old male presented to the ED status post mechanical fall. Patient is on Eliquis. Does note history of blood clots. Patient reports at around 2 PM today had a mechanical fall causing him to fall forward and hit his head on the pavement. There is no LOC. Denies any other injury at this time. No chest pain or shortness of breath preceding the fall. No other complaints at this time. - Related Data Home Medications Medication Instructions Recorded Confirmed Citalopram Hydrobromide [CeleXA] 40 mg PO DAILY 03/21/14 10/11/22 Insulin NPH Hum/Reg Insulin Hm 32 unit SQ HS 02/05/18 10/11/22 [NovoLIN 70-30 100 UNIT/ML VIAL] Spironolactone [Aldactone] 25 mg PO DAILY 07/06/18 10/11/22 ALPRAZolam [Xanax] 0.25 mg PO TID PRN 03/18/21 10/11/22 Finasteride [Proscar] 5 mg PO DAILY 03/18/21 10/11/22 Mometasone/Formoterol [Dulera 100 2 puff PO RT-BID 03/18/21 10/11/22 Mcg-5 Mcg Inhaler] Montelukast [Singulair] 10 mg PO HS 03/18/21 10/11/22 metFORMIN HCL 1,000 mg PO BID 03/18/21 10/11/22 Dulaglutide [Trulicity] 1.5 mg SQ TH 04/21/22 10/11/22 Isosorbide Mononitrate ER [Imdur] 30 mg PO DAILY 04/21/22 10/11/22 buPROPion HCL [buPROPion HCL Xl] 150 mg PO DAILY 04/21/22 10/11/22 Furosemide [Lasix] 40 mg PO BID 10/11/22 10/11/22 Insulin NPH Hum/Reg Insulin Hm 30 unit SQ DAILY 10/11/22 10/11/22 [Novolin 70-30 100 Unit/ml Vial] Metoprolol Tartrate [Lopressor] 12.5 mg PO BID 10/11/22 10/11/22 Mv-Min/Folic/K1/Lycopen/Lutein 1 tab PO DAILY 10/11/22 10/11/22 [Centrum Silver Men Tablet] Tamsulosin [Flomax] 0.4 mg PO DAILY 10/11/22 10/11/22 Previous Rx's Medication Instructions Recorded Apixaban [Eliquis] 5 mg PO BID tab 01/19/18 Atorvastatin [Lipitor] 40 mg PO DAILY tab 01/19/18 Ketorolac [Toradol] 10 mg PO TID #30 tab 02/21/23 Lidocaine 5% Patch [Lidoderm] 1 patch TOPICAL DAILY #14 patch 02/21/23 methocarbamoL [Robaxin-750] 750 mg PO TID #30 tab 02/21/23 Allergies Allergy/AdvReac Type Severity Reaction Status Date / Time No Known Allergies Allergy Verified 08/28/23 15:11 Review of Systems ROS Statement: Those systems with pertinent positive or pertinent negative responses have been documented in the HPI. ROS Other: All systems not noted in ROS Statement are negative. Past Medical History Past Medical History: Asthma, Coronary Artery Disease (CAD), Cancer, CVA/TIA, Diabetes Mellitus, Hyperlipidemia, Hypertension, Myocardial Infarction (ND), Prostate Disorder Additional Past Medical History / Comment(s): pos occult stool,hx SOME UPPER RIGHT CHEST PAIN. HX OF TIA, ENLARGED PROSTATE, ND X3, Prostate CA Last Myocardial Infarction Date:: 10/01/2011 History of Any Multi-Drug Resistant Organisms: None Reported Past Surgical History: Coronary Bypass/CABG, Heart Catheterization With Stent, Hernia Repair Additional Past Surgical History / Comment(s): INGUINAL HERNIA, RT HEEL SURGERY WITH HARDWARE. BILATERAL CATARACTS.CABG-3 vessels Past Anesthesia/Blood Transfusion Reactions: No Reported Reaction Additional Past Anesthesia/Blood Transfusion Reaction / Comment(s): no hx blood transfusion Date of Last Stent Placement:: 10/01/2011 Past Psychological History: Anxiety, Depression Smoking Status: Never smoker Past Alcohol Use History: None Reported Past Drug Use History: None Reported - Past Family History Mother Family Medical History: Cancer, Diabetes Mellitus Additional Family Medical History / Comment(s): pancreas Father Family Medical History: Cancer General Exam Limitations: no limitations General appearance: alert, in no apparent distress Head exam: Present: other (2 small skin tears to the right side of the patient's face. No delgado signs or raccoon's eyes.) Eye exam: Present: PERRL, EOMI Neck exam: Present: normal inspection Respiratory exam: Present: normal lung sounds bilaterally Cardiovascular Exam: Present: regular rate, normal rhythm GI/Abdominal exam: Present: soft Extremities exam: Present: other (Full active range of motion of bilateral upper and lower extremities.) Back exam: Present: other (No midline spinal tenderness to palpation.) Neurological exam: Present: alert, oriented X3, CN II-XII intact Skin exam: Present: warm, dry Course Vital Signs 08/28/23 15:05 Temperature 98.1 F Pulse Rate 65 Respiratory 18 Rate Blood Pressure 147/63 O2 Sat by Pulse 94 L Oximetry Medical Decision Making - Medical Decision Making Was pt. sent in by a medical professional or institution ([facility], [employer], urgent care, hospital, or [facility]...) When possible be specific @ -No Did you speak to anyone other than the patient for history (EMS, parent, family, police, friend...)? What history was obtained from this source @ -No Did you review nursing and triage notes (agree or disagree)? Why? @ -I reviewed and agree with nursing and triage notes Were old charts reviewed (outside hosp., previous admission, EMS record, old EKG, old radiological studies, urgent care reports/EKG's, [facility] records)? Report findings @ -No old charts were reviewed Differential Diagnosis (chest pain, altered mental status, abdominal pain women, abdominal pain men, vaginal bleeding, weakness, fever, dyspnea, syncope, headache, dizziness, GI bleed, back pain, seizure, CVA, palpatations, mental health, musculoskeletal)? @ -Differential Musculoskeletal Muscular strain, contusion, ligament sprain, fracture, arthritis, septic arthritis, bursitis, cellulitis, muscle spasm, nerve compression, DVT, arterial occlusion, herpes zoster, electrolyte abnormality, tumor.... This is not meant to be in all inclusive list EKG interpreted by me (3pts min.). @ -EKG appears sinus rhythm at a rate of 59 bpm. QRS 120, QT/QTc 462/461. No acute changes. X-rays interpreted by me (1pt min.). @ -None done CT interpreted by me (1pt min.). @ -CT brain and cervical spine interpreted me showing no evidence of acute finding. U/S interpreted by me (1pt. min.). @ -None done What testing was considered but not performed or refused? (CT, X-rays, U/S, labs)? Why? @ -None What meds were considered but not given or refused? Why? @ -None Did you discuss the management of the patient with other professionals (professionals i.e. Dr., PA, LEAD GAME DESIGNER, lab, RT, psych nurse, social service agency director, wired music operator, teacher, title officer, binder caser)? Give summary @ -No Was smoking cessation discussed for >3mins.? @ -No Was critical care preformed (if so, how long)? @ -No Were there social determinants of health that impacted care today? How? (Homelessness, low income, unemployed, alcoholism, drug addiction, transpo rtation, low edu. Level, literacy, decrease access to med. care, snf, rehab)? @ -No Was there de-escalation of care discussed even if they declined (Discuss DNR or withdrawal of care, Hospice)? DNR status @ -No What co-morbidities impacted this encounter? (DM, HTN, Smoking, COPD, CAD, Cancer, CVA, ARF, Chemo, Hep., AIDS, mental health diagnosis, sleep apnea, morbid obesity)? @ -None Was patient admitted / discharged? Hospital course, mention meds given and route, prescriptions, significant lab abnormalities, going to OR and other pertinent info. @ -Discharge 78-year-old male presenting to the ED status post mechanical fall. Patient is on thinners. Noted no other injuries at this time. Exam showed full active range of motion of bilateral upper lower extremities with full strength and sensation. Pulses intact of all extremities. No delgado signs or raccoon's eyes. Does have small skin tears to the right side of his face. These were covered with bacitracin. CT brain cervical spine showed no acute findings. Laboratory studies largely unremarkable. Discharged home in stable condition. Discussed return precautions with patient and family who verbalized agreement. Undiagnosed new problem with uncertain prognosis? @ -No Drug Therapy requiring intensive monitoring for toxicity (Heparin, Nitro, Insulin, Cardizem)? @ -No Were any procedures done? @ -No Diagnosis/symptom? @ -Status post mechanical fall on thinners, head injury Acute, or Chronic, or Acute on Chronic? @ -Acute Uncomplicated (without systemic symptoms) or Complicated (systemic symptoms)? @ -Uncomplicated Side effects of treatment? @ -No Exacerbation, Progression, or Severe Exacerbation? @ -No Poses a threat to life or bodily function? How? (Chest pain, USA, ND, pneumonia, PE, COPD, DKA, ARF, appy, cholecystitis, CVA, Diverticulitis, Homicidal, Suicidal, threat to staff... and all critical care pts) @ -No - Lab Data Result diagrams: 08/28/23 15:32 08/28/23 15:32 Lab Results 08/28/23 08/28/23 08/28/23 Range/Units 15:32 15:32 15:32 WBC 8.0 (3.8-10.6) k/uL RBC 3.82 L (4.30-5.90) m/uL Hgb 12.5 L (13.0-17.5) gm/dL Hct 36.9 L (39.0-53.0) % MCV 96.7 (80.0-100.0) fL MCH 32.7 (25.0-35.0) pg MCHC 33.8 (31.0-37.0) g/dL RDW 12.3 (11.5-15.5) % Plt Count 205 (150-450) k/uL MPV 9.7 Neutrophils % 80 % Lymphocytes % 10 % Monocytes % 6 % Eosinophils % 2 % Basophils % 0 % Neutrophils # 6.4 (1.3-7.7) k/uL Lymphocytes # 0.8 L (1.0-4.8) k/uL Monocytes # 0.5 (0-1.0) k/uL Eosinophils # 0.1 (0-0.7) k/uL Basophils # 0.0 (0-0.2) k/uL PT 12.5 (10.0-12.5) sec INR 1.2 H (<1.2) APTT 26.1 (22.0-30.0) sec Sodium 137 (137-145) mmol/L Potassium 5.2 H (3.5-5.1) mmol/L Chloride 106 (98-107) mmol/L Carbon Dioxide 21 L (22-30) mmol/L Anion Gap 10 mmol/L BUN 25 H (9-20) mg/dL Creatinine 1.52 H (0.66-1.25) mg/dL Est GFR (CKD-EPI)AfAm 51 (>60 ml/min/1.73 sqM) Est GFR (CKD-EPI)NonAf 44 (>60 ml/min/1.73 sqM) Glucose 152 H (74-99) mg/dL Calcium 8.9 (8.4-10.2) mg/dL Magnesium 1.9 (1.6-2.3) mg/dL Total Bilirubin 0.5 (0.2-1.3) mg/dL AST 26 (17-59) U/L ALT 21 (4-49) U/L Alkaline Phosphatase 72 (38-126) U/L Troponin I (0.000-0.034) ng/mL Total Protein 5.9 L (6.3-8.2) g/dL Albumin 3.8 (3.5-5.0) g/dL 08/28/23 Range/Units 15:32 WBC (3.8-10.6) k/uL RBC (4.30-5.90) m/uL Hgb (13.0-17.5) gm/dL Hct (39.0-53.0) % MCV (80.0-100.0) fL MCH (25.0-35.0) pg MCHC (31.0-37.0) g/dL RDW (11.5-15.5) % Plt Count (150-450) k/uL MPV Neutrophils % % Lymphocytes % % Monocytes % % Eosinophils % % Basophils % % Neutrophils # (1.3-7.7) k/uL Lymphocytes # (1.0-4.8) k/uL Monocytes # (0-1.0) k/uL Eosinophils # (0-0.7) k/uL Basophils # (0-0.2) k/uL PT (10.0-12.5) sec INR (<1.2) APTT (22.0-30.0) sec Sodium (137-145) mmol/L Potassium (3.5-5.1) mmol/L Chloride (98-107) mmol/L Carbon Dioxide (22-30) mmol/L Anion Gap mmol/L BUN (9-20) mg/dL Creatinine (0.66-1.25) mg/dL Est GFR (CKD-EPI)AfAm (>60 ml/min/1.73 sqM) Est GFR (CKD-EPI)NonAf (>60 ml/min/1.73 sqM) Glucose (74-99) mg/dL Calcium (8.4-10.2) mg/dL Magnesium (1.6-2.3) mg/dL Total Bilirubin (0.2-1.3) mg/dL AST (17-59) U/L ALT (4-49) U/L Alkaline Phosphatase (38-126) U/L Troponin I <0.012 (0.000-0.034) ng/mL Total Protein (6.3-8.2) g/dL Albumin (3.5-5.0) g/dL Disposition Clinical Impression: Fall, Head injury Disposition: HOME SELF-CARE Condition: Good Instructions (If sedation given, give patient instructions): Fall Prevention for Older Adults (ED), Skin Tear (ED) Additional Instructions: Please return to the Emergency Department if symptoms worsen or any other concerns. Please follow-up with your PCP. Is patient prescribed a controlled substance at d/c from ED?: No Referrals: Jung Bagley MD [Primary Care Provider] - 1-2 days Time of Disposition: 16:31
[2023-08-28] MEDS: ACETAMINOPHEN TAB 500 MG TAB PO STA (16:44)
[2023-08-28] MEDS: BACITRACIN OINT 1 EACH PACKET TOPICAL ONE (16:44)
[2023-08-28 19:27] VITALS: BP 117/51; PULSE 55; RESP 16
== END 2023-08-28 16:54 | disposition home or self-care (01) ==
LOC: EC 15:02
DX: S01.81XA Laceration without foreign body of other part of head, initial encounter (principal); E11.9 Type 2 diabetes mellitus without complications; I10 Essential (primary) hypertension; I25.2 Old myocardial infarction; I25.10 Atherosclerotic heart disease of native coronary artery without angina pectoris; J45.909 Unspecified asthma, uncomplicated; F32.A Depression, unspecified; F41.9 Anxiety disorder, unspecified; N40.0 Benign prostatic hyperplasia without lower urinary tract symptoms; Z79.4 Long term (current) use of insulin; Z79.85 Long-term (current) use of injectable non-insulin antidiabetic drugs; Z79.84 Long term (current) use of oral hypoglycemic drugs; Z79.01 Long term (current) use of anticoagulants; Z79.899 Other long term (current) drug therapy; Z95.1 Presence of aortocoronary bypass graft; Z98.41 Cataract extraction status, right eye; Z98.42 Cataract extraction status, left eye; Z86.73 Personal history of transient ischemic attack (TIA), and cerebral infarction without residual deficits; W19.XXXA Unspecified fall, initial encounter
CPT/HCPCS: 36415; 70450; 72125; 80053; 83735; 84484; 85025; 85610; 85730; 93005; 99284

== ENCOUNTER → 2023-10-04 | Outpatient (CLI) | payer MEDICARE, BC ==
[2023-10-04 16:14] LABS: ALT 18 U/L (10-49); AST 17 U/L (14-35); Albumin 4.1 g/dL (3.8-4.9); Albumin/Globulin Ratio 2.05 Ratio (1.60-3.17); Alkaline Phosphatase 109 U/L (41-126); BUN/Creat Ratio 13.93 Ratio (12.00-20.00); Blood Urea Nitrogen 20.9 mg/dL (9.0-27.0); Calcium 9.3 mg/dL (8.7-10.3); Carbon Dioxide 25.7 mmol/L (21.6-31.8); Chloride 102 mmol/L (96-109); Chol/HDL Ratio 1.71 Ratio; Glucose 110 mg/dL (70-110); LDL Cholesterol,Calculated 28.1 mg/dL (0.0-131.0); Potassium 4.7 mmol/L (3.5-5.5); Sodium 140 mmol/L (135-145); Total Bilirubin 0.4 mg/dL (0.3-1.2); Total Protein 6.1 g/dL (6.2-8.2); VLDL Calculation 14.48 mg/dL (5.00-40.00)
[2023-10-05 00:14] LABS: Urine Creatinine 90.2 mg/dL (39.0-259.0)
== END | disposition home or self-care (01) ==
LOC: LABWHC1 09:39
PROVIDERS: ATTEND Internal Medicine Endocrinology, Diabetes & Metabolism
DX: E11.65 Type 2 diabetes mellitus with hyperglycemia (principal)
CPT/HCPCS: 36415; 80053; 80061; 82043; 82570; 83036; 84443

== ENCOUNTER → 2023-10-20 | Outpatient (CLI) | payer MEDICARE, BC ==
--- NOTE | 2023-10-20 17:16 | US ---
EXAMINATION TYPE: US carotid duplex BILAT DATE OF EXAM: 10/20/2023 COMPARISON: 09/27/2018 CLINICAL INDICATION: Male, 78 years old with history of R42 DIZZINESS AND GIDDINESS; Dizziness TECHNIQUE: Carotid duplex ultrasound examination. Indirect Doppler criteria was utilized. FINDINGS: EXAM MEASUREMENTS: RIGHT: Peak Systolic Velocity (PSV) cm/sec ----- Right CCA: 82.7 ----- Right ICA: 111.3 ----- Right ECA: 264.8 ICA/CCA ratio: 1.3 RIGHT: End Diastole cm/sec ----- Right CCA: 11.5 ----- Right ICA: 11.1 ----- Right ECA: 12.6 LEFT: Peak Systolic Velocity (PSV) cm/sec ----- Left CCA: 81.2 ----- Left ICA: 96.6 ----- Left ECA: 141.7 ICA/CCA ratio: 1.2 LEFT: End Diastole cm/sec ----- Left CCA: 13.1 ----- Left ICA: 21.9 ----- Left ECA: 0.0 VERTEBRALS (direction of flow): Right Vertebral: Antegrade Left Vertebral: Antegrade Rhythm: Normal REAL ESTATE TRANSACTION COORDINATOR NOTES: Elevated velocities bilateral ECA's- otherwise no significant stenosis visualized IMPRESSION: Minimal scattered plaque in the carotid bifurcations bilaterally but no hemodynamically significant s tenosis based on color and grayscale imaging as well as peak systolic velocities and ratios. Criteria for Assigning % of Stenosis / Diameter reduction (Estimation based on the indirect measurements of the internal carotid artery velocities (ICA PSV). 1. Normal (no stenosis)=ICA PSV < 125 cm/s: ratio < 2.0: ICA EDV<40 cm/s. 2. Less than 50% stenosis=ICA PSV < 125 cm/s: ratio < 2.0: ICA EDV<40 cm/s. 3. 50 to 69% stenosis=ICA PSV of 125 to 230 cm/s: ration 2.0 ? 4.0: ICA EDV 40-100 cm/s. 4. Greater than 70% stenosis to near occlusion= ICA PSV > 230 cm/s: ratio > 4.0: ICA EDV > 100 cm/s. 5. Near occlusion= ICA PSV velocities may be low or undetectable: variable ratio and ICA EDV. 6. Total occlusion=unable to detect flow.
== END | disposition home or self-care (01) ==
LOC: RADUSWWP 15:35
PROVIDERS: ATTEND Family Medicine
DX: I65.23 Occlusion and stenosis of bilateral carotid arteries (principal)
CPT/HCPCS: 93880

== ENCOUNTER → 2024-04-03 | Outpatient (CLI) | payer MEDICARE, BC ==
[2024-04-04 02:28] LABS: HCT 36.1 % (39.6-50.0); HGB 11.3 g/dL (13.0-17.0); MCH 31.8 pg (27.0-32.0); MCHC 31.3 g/dL (32.0-37.0); MCV 101.7 FL (80.0-97.0); Mean Platelet Volume 11.5 FL (9.5-12.2); NRBC Per 100 WBC 0 X 10*3/uL (0.00-0.01); Platelet Count 260 X 10*3/uL (140-440); RBC 3.55 X 10*6/uL (4.40-5.60); RDW 12.2 % (11.5-14.5); WBC 7.56 X 10*3/uL (4.50-10.00)
[2024-04-04 02:54] LABS: ALT 17 U/L (10-49); AST 16 U/L (14-35); Albumin/Globulin Ratio 2.11 Ratio (1.60-3.17); Alkaline Phosphatase 68 U/L (41-126); BUN/Creat Ratio 14.82 Ratio (12.00-20.00); Blood Urea Nitrogen 25.2 mg/dL (9.0-27.0); Calcium 9.1 mg/dL (8.7-10.3); Chloride 103 mmol/L (96-109); Globulin 1.9 g/dL (1.6-3.3); Glucose 61 mg/dL (70-110); Potassium 5.6 mmol/L (3.5-5.5); Sodium 140 mmol/L (135-145); Total Bilirubin 0.3 mg/dL (0.3-1.2); Total Protein 5.9 g/dL (6.2-8.2)
== END | disposition home or self-care (01) ==
LOC: LABWHC1 16:20
PROVIDERS: ATTEND Internal Medicine Interventional Cardiology
CPT/HCPCS: 36415; 80053; 85027

== ENCOUNTER 2024-04-19 15:17 | Emergency (ER) | payer MEDICARE, BC ==
[2024-04-19 15:45] VITALS: TEMP 97.8
--- NOTE | 2024-04-19 16:21 | ED ---
Fall HPI - General Chief Complaint: Fall Stated Complaint: Fall-Head Injury Time Seen by Provider: 04/19/24 15:19 Source: patient, RN notes reviewed, old records reviewed Mode of arrival: EMS Limitations: no limitations - History of Present Illness Initial Comments: This is a 78-year-old male to the ER with a fall on a blood thinner with a head injury may be facial laceration patient has some confusion though resolved currently. 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: yes, by family Place Fall Occurred: home Loss of Consciousness: none Prolonged Down Time?: no Symptoms Prior to Fall: none Location: head, face Severity: mild Context: tripped/slipped Associated Symptoms: denies - Related Data Home Medications Medication Instructions Recorded Confirmed Citalopram Hydrobromide [CeleXA] 40 mg PO DAILY 03/21/14 04/24/24 Insulin NPH Hum/Reg Insulin Hm 32 unit SQ HS 02/05/18 04/24/24 [NovoLIN 70-30 100 UNIT/ML VIAL] Spironolactone [Aldactone] 25 mg PO DAILY 07/06/18 04/24/24 ALPRAZolam [Xanax] 0.25 mg PO TID PRN 03/18/21 04/24/24 Finasteride [Proscar] 5 mg PO DAILY 03/18/21 04/24/24 Montelukast [Singulair] 10 mg PO HS 03/18/21 04/24/24 metFORMIN HCL 1,000 mg PO BID 03/18/21 04/24/24 Isosorbide Mononitrate ER [Imdur] 30 mg PO DAILY 04/21/22 04/24/24 buPROPion HCL [buPROPion HCL Xl] 150 mg PO DAILY 04/21/22 04/24/24 Furosemide [Lasix] 40 mg PO BID 10/11/22 04/24/24 Insulin NPH Hum/Reg Insulin Hm 42 unit SQ DAILY 10/11/22 04/24/24 [Novolin 70-30 100 Unit/ml Vial] Metoprolol Tartrate [Lopressor] 12.5 mg PO BID 10/11/22 04/24/24 Tamsulosin [Flomax] 0.4 mg PO DAILY 10/11/22 04/24/24 Docusate Sodium [Dok] 100 mg PO BID 04/24/24 04/24/24 Dulaglutide [Trulicity] 3 mg SQ Q7D 04/24/24 04/24/24 Fluticasone/Vilanterol [Breo 1 puff INHALATION RT-DAILY 04/24/24 04/24/24 Ellipta 100-25 Mcg Inhalr] Losartan [Cozaar] 25 mg PO DAILY 04/24/24 04/24/24 Meclizine [Antivert] 12.5 mg PO TID PRN 04/24/24 04/24/24 Previous Rx's Medication Instructions Recorded Apixaban [Eliquis] 5 mg PO BID tab 01/19/18 Atorvastatin [Lipitor] 40 mg PO DAILY tab 01/19/18 Allergies Allergy/AdvReac Type Severity Reaction Status Date / Time No Known Allergies Allergy Verified 04/24/24 08:07 Review of Systems ROS Statement: Those systems with pertinent positive or pertinent negative responses have been documented in the HPI. ROS Other: All systems not noted in ROS Statement are negative. Past Medical History Past Medical History: Asthma, Coronary Artery Disease (CAD), Cancer, CVA/TIA, Diabetes Mellitus, Hyperlipidemia, Hypertension, Myocardial Infarction (NE), Prostate Disorder Additional Past Medical History / Comment(s): pos occult stool,hx SOME UPPER RIGHT CHEST PAIN. HX OF TIA, ENLARGED PROSTATE, NE X3, Prostate CA Last Myocardial Infarction Date:: 10/01/2011 History of Any Multi-Drug Resistant Organisms: None Reported Past Surgical History: Coronary Bypass/CABG, Heart Catheterization With Stent, Hernia Repair Additional Past Surgical History / Comment(s): INGUINAL HERNIA, RT HEEL SURGERY WITH HARDWARE. BILATERAL CATARACTS.CABG-3 vessels Past Anesthesia/Blood Transfusion Reactions: No Reported Reaction Additional Past Anesthesia/Blood Transfusion Reaction / Comment(s): no hx blood transfusion Date of Last Stent Placement:: 10/01/2011 Past Psychological History: Anxiety, Depression Smoking Status: Never smoker Past Alcohol Use History: None Reported Past Drug Use History: None Reported - Past Family History Mother Family Medical History: Cancer, Diabetes Mellitus Additional Family Medical History / Comment(s): pancreas Father Family Medical History: Cancer General Exam Limitations: no limitations General appearance: alert, in no apparent distress Head exam: Present: atraumatic, normocephalic, normal inspection Eye exam: Present: normal appearance, PERRL, EOMI. Absent: scleral icterus, conjunctival injection, periorbital swelling ENT exam: Present: normal exam, mucous membranes moist Neck exam: Present: normal inspection. Absent: tenderness, meningismus, lymphadenopathy Respiratory exam: Present: normal lung sounds bilaterally. Absent: respiratory distress, wheezes, rales, rhonchi, stridor Cardiovascular Exam: Present: regular rate, normal rhythm, normal heart sounds. Absent: systolic murmur, diastolic murmur, rubs, gallop, clicks GI/Abdominal exam: Present: soft, normal bowel sounds. Absent: distended, tenderness, guarding, rebound, rigid Extremities exam: Present: normal inspection, full ROM, normal capillary refill. Absent: tenderness, pedal edema, joint swelling, calf tenderness Back exam: Present: normal inspection Neurological exam: Present: alert, oriented X3, CN II-XII intact Psychiatric exam: Present: normal affect, normal mood Skin exam: Present: warm, dry, intact, normal color. Absent: rash Course Vital Signs 04/19/24 04/19/24 04/19/24 15:29 15:44 17:25 Temperature 97.8 F Pulse Rate 45 L 56 L Respiratory 16 16 Rate Blood Pressure 106/65 87/52 O2 Sat by Pulse 90 L 94 L Oximetry 04/19/24 04/19/24 04/19/24 19:15 20:56 21:25 Temperature Pulse Rate 49 L 54 L Respiratory 18 16 18 Rate Blood Pressure 97/45 99/49 O2 Sat by Pulse 92 L 95 Oximetry - Reevaluation(s) Reevaluation #1: 04/19/24 16:43 Medical records reviewed Reevaluation #2: 04/19/24 16:43 Patient symptoms unchanged Reevaluation #3: 04/19/24 16:43 Patient informed of results and questions answered Reevaluation #4: 04/19/24 16:43 Was pt. sent in by a medical professional or institution (, PA, OPERATING SYSTEMS PROGRAMMER, urgent care, hospital, or long term...) When possible be specific @ -no Did you speak to anyone other than the patient for history (EMS, parent, family, police, friend...)? What history was obtained from this source @ -no Did you review nursing and triage notes (agree or disagree)? Why? @ -agree Are old charts reviewed (outside hosp., previous admission, EMS record, old EKG, old radiological studies, urgent care reports/EKG's, long term records)? Report findings @ -yes Differential Diagnosis (chest pain, altered mental status, abdominal pain women, abdominal pain men, vaginal bleeding, weakness, fever, dyspnea, syncope, headache, dizziness, GI bleed, back pain, seizure, CVA, palpatations, mental health, musculoskeletal)? @ -prior EKG interpreted by me (3pts min.). @ -yes X-rays interpreted by me (1pt min.). @ -yes negative for acute disease CT interpreted by me (1pt min.). @ -Yes negative for acute disease U/S interpreted by me (1pt. min.). @ -no What testing was considered but not performed or refused? (CT, X-rays, U/S, labs)? Why? @ -none What meds were considered but not given or refused? Why? @ -none Did you discuss the management of the patient with other professionals (professionals i.e. , PA, OPERATING SYSTEMS PROGRAMMER, lab, RT, psych nurse, outreach and education social worker, intellectual property lawyer, teacher, bsa/aml compliance officer, caseworker)? Give summary @ -no Was smoking cessation discussed for >3mins.? @ -no Was critical care preformed (if so, how long)? @ -no Were there social determinants of health that impacted care today? How? (Homelessness, low income, unemployed, alcoholism, drug addiction, transportation, low edu. Level, literacy, decrease access to med. care, alf, rehab)? @ -none Was there de-escalation of care discussed even if they declined (Discuss DNR or withdrawal of care, Hospice)? DNR status @ -no What co-morbidities impacted this encounter? (DM, HTN, Smoking, COPD, CAD, Cancer, CVA, ARF, Chemo, Hep., AIDS, mental health diagnosis, sleep apnea, morbi d obesity)? @ -none Was patient admitted / discharged? Hospital course, mention meds given and rout e, prescriptions, significant lab abnormalities, going to OR and other pertinent info. @ - 78 male with fall from standing. Head injury with no acute intracranial process. Patient can be discharged home Discharge Undiagnosed new problem with uncertain prognosis? @ -no Drug Therapy requiring intensive monitoring for toxicity (Heparin, Nitro, Insulin, Cardizem)? @ -no Were any procedures done? @ -no Diagnosis/symptom? @ -Fall with head injury Acute, or Chronic, or Acute on Chronic? @ -Acute Uncomplicated (without systemic symptoms) or Complicated (systemic symptoms)? @ -Complicated Side effects of treatment? @ -no Exacerbation, Progression, or Severe Exacerbation? @ -exacerbation Poses a threat to life or bodily function? How? (Chest pain, USA, NE, pneumonia, PE, COPD, DKA, ARF, appy, cholecystitis, CVA, Diverticulitis, Homicidal, Suicidal, threat to staff... and all critical care pts) @ -yes extremes of age Medical Decision Making - Medical Decision Making 78 male with fall from standing. Head injury with no acute intracranial process. Patient can be discharged home - Lab Data Result diagrams: 04/19/24 17:07 04/19/24 17:07 Lab Results 04/19/24 04/19/24 04/19/24 Range/Units 17:07 17:07 17:07 WBC 9.5 (3.8-10.6) k/uL RBC 3.54 L (4.30-5.90) m/uL Hgb 11.4 L (13.0-17.5) gm/dL Hct 34.4 L (39.0-53.0) % MCV 97.0 (80.0-100.0) fL MCH 32.0 (25.0-35.0) pg MCHC 33.0 (31.0-37.0) g/dL RDW 11.8 (11.5-15.5) % Plt Count 213 (150-450) k/uL MPV 8.5 Neutrophils % 88 % Lymphocytes % 6 % Monocytes % 4 % Eosinophils % 1 % Basophils % 0 % Neutrophils # 8.3 H (1.3-7.7) k/uL Lymphocytes # 0.5 L (1.0-4.8) k/uL Monocytes # 0.4 (0-1.0) k/uL Eosinophils # 0.1 (0-0.7) k/uL Basophils # 0.0 (0-0.2) k/uL PT 11.6 (10.0-12.5) sec INR 1.1 (<1.2) APTT 22.5 (22.0-30.0) sec Sodium 139 (137-145) mmol/L Potassium 4.6 (3.5-5.1) mmol/L Chloride 107 (98-107) mmol/L Carbon Dioxide 27 (22-30) mmol/L Anion Gap 5 mmol/L BUN 31 H (9-20) mg/dL Creatinine 1.62 H (0.66-1.25) mg/dL Est GFR (CKD-EPI)AfAm 47 (>60 ml/min/1.73 sqM) Est GFR (CKD-EPI)NonAf 40 (>60 ml/min/1.73 sqM) Glucose 84 (74-99) mg/dL Plasma Lactic Acid Rei (0.7-2.0) mmol/L Calcium 9.0 (8.4-10.2) mg/dL Phosphorus 2.5 (2.4-5.1) Magnesium 2.3 (1.6-2.3) mg/dL Total Bilirubin 0.5 (0.2-1.3) mg/dL AST 22 (17-59) U/L ALT 18 (4-49) U/L Alkaline Phosphatase 53 (38-126) U/L Troponin I (0.000-0.034) ng/mL NT-Pro-B Natriuret Pep 1360 pg/mL Total Protein 6.0 L (6.3-8.2) g/dL Albumin 3.8 (3.5-5.0) g/dL Urine Color Urine Appearance (Clear) Urine pH (5.0-8.0) Ur Specific Deane (1.001-1.035) Urine Protein (Negative) Urine Glucose (UA) (Negative) Urine Ketones (Negative) Urine Blood (Negative) Urine Nitrite (Negative) Urine Bilirubin (Negative) Urine Urobilinogen (<2.0) mg/dL Ur Leukocyte Esterase (Negative) Urine WBC (0-5) /hpf Ur Squamous Epith Cells (0-4) /hpf Urine Bacteria (None) /hpf Hyaline Casts (0-2) /lpf Urine Mucus (None) /hpf 04/19/24 04/19/24 04/19/24 Range/Units 17:07 17:07 19:11 WBC (3.8-10.6) k/uL RBC (4.30-5.90) m/uL Hgb (13.0-17.5) gm/dL Hct (39.0-53.0) % MCV (80.0-100.0) fL MCH (25.0-35.0) pg MCHC (31.0-37.0) g/dL RDW (11.5-15.5) % Plt Count (150-450) k/uL MPV Neutrophils % % Lymphocytes % % Monocytes % % Eosinophils % % Basophils % % Neutrophils # (1.3-7.7) k/uL Lymphocytes # (1.0-4.8) k/uL Monocytes # (0-1.0) k/uL Eosinophils # (0-0.7) k/uL Basophils # (0-0.2) k/uL PT (10.0-12.5) sec INR (<1.2) APTT (22.0-30.0) sec Sodium (137-145) mmol/L Potassium (3.5-5.1) mmol/L Chloride (98-107) mmol/L Carbon Dioxide (22-30) mmol/L Anion Gap mmol/L BUN (9-20) mg/dL Creatinine (0.66-1.25) mg/dL Est GFR (CKD-EPI)AfAm (>60 ml/min/1.73 sqM) Est GFR (CKD-EPI)NonAf (>60 ml/min/1.73 sqM) Glucose (74-99) mg/dL Plasma Lactic Acid Rei 2.0 (0.7-2.0) mmol/L Calcium (8.4-10.2) mg/dL Phosphorus (2.4-5.1) Magnesium (1.6-2.3) mg/dL Total Bilirubin (0.2-1.3) mg/dL AST (17-59) U/L ALT (4-49) U/L Alkaline Phosphatase (38-126) U/L Troponin I <0.012 (0.000-0.034) ng/mL NT-Pro-B Natriuret Pep pg/mL Total Protein (6.3-8.2) g/dL Albumin (3.5-5.0) g/dL Urine Color Colorless Urine Appearance Clear (Clear) Urine pH 5.5 (5.0-8.0) Ur Specific Deane 1.014 (1.001-1.035) Urine Protein 1+ H (Negative) Urine Glucose (UA) Negative (Negative) Urine Ketones Negative (Negative) Urine Blood Negative (Negative) Urine Nitrite Negative (Negative) Urine Bilirubin Negative (Negative) Urine Urobilinogen <2.0 (<2.0) mg/dL Ur Leukocyte Esterase Moderate H (Negative) Urine WBC 20 H (0-5) /hpf Ur Squamous Epith Cells <1 (0-4) /hpf Urine Bacteria Rare H (None) /hpf Hyaline Casts 13 H (0-2) /lpf Urine Mucus Rare H (None) /hpf - EKG Data -: EKG Interpreted by Me (EKG is sinus 52 SC 224 QRS 114 QTc 465) - Radiology Data Radiology results: report reviewed (CT brain C-spine facial bones negative for acute disease x-ray chest and pelvis negative for traumatic injury), image reviewed Disposition Clinical Impression: Fall, Head injury Disposition: HOME SELF-CARE Condition: Good Instructions (If sedation given, give patient instructions): Fall Prevention for Older Adults (ED) Is patient prescribed a controlled substance at d/c from ED?: No Referrals: Jung Bagley MD [Primary Care Provider] - 1-2 days
--- NOTE | 2024-04-19 16:38 | CT ---
EXAMINATION TYPE: CT brain cspine wo con, CT facial bones wo con DATE OF EXAM: 04/19/2024 4:14 PM COMPARISON: 08/28/2023 CLINICAL INDICATION: Male, 78 years old with history of fall; pain after trip and fall today, No LOC. laceration to left ear. TECHNIQUE: Brain: Multiple axial CT images of the brain were obtained without IV contrast. Cspine: Axial CT images from the skull base to the inferior aspect of T2 we obtained without intraven ous contrast. Coronal and sagittal reformatted images were also reviewed. Facial: Axial imaging of the facial structures with sagittal and coronal reformats. CT DLP: 1144.7 mGycm, Automated exposure control for dose reduction was used. FINDINGS: Brain: Extra-axial spaces: No abnormal extra-axial fluid collections. Ventricular system: Dilatation in proportion to cerebral atrophy. Cerebral parenchyma: Cerebral atrophy. No acute intraparenchymal hemorrhage or mass effect. The maharaj -white junction is well differentiated. Scattered hypoattenuating areas are seen within the white mat ter. Cerebellum: Unremarkable. Mass effect: No evidence of midline shift. Intracranial vasculature: Atherosclerotic calcifications of the intracranial vessels. Soft tissues: Normal. Calvarium/osseous structures: No depressed skull fracture. Paranasal sinuses and mastoid air cells: Clear. Visualized orbits: Orbital contents are intact. Cervical spine: Fracture: None. Osseous structures: Unremarkable Vertebral alignment: Within normal limits. Spinal canal/Neural Foramina: No evidence of significant spinal canal narrowing. No evidence for sign ificant neural foraminal stenosis. Neck soft tissues: Prevertebral soft tissues are within normal limits. Other: The airway is patent. The lung apices are clear. Facial: Left ear laceration not well appreciated. There is no evidence of fracture, subluxation, disl ocation, or significant soft tissue swelling. The orbital contents are unremarkable.The temporal-ana laura ibular joints appear symmetric. The visualized portion of the paranasal sinuses appear clear. IMPRESSION: 1. No acute intracranial process. 2. Nonspecific white matter changes, likely secondary to chronic small vessel ischemic disease. 3. No evidence of cervical spine fracture. 4. Mild multilevel degenerative disc disease. 5. No evidence for facial bone fracture. [facility], Workstation: [email or web address] - [employer] [id number], 04/19/2024 4:35 PM
[2024-04-19 17:14] LABS: Basophils % (A) 0 %; Eosinophils # (A) 0.1 k/uL (0-0.7); Eosinophils % (A) 1 %; HCT 34.4 % (39.0-53.0); HGB 11.4 gm/dL (13.0-17.5); Lymphocytes # (A) 0.5 k/uL (1.0-4.8); Lymphocytes % (A) 6 %; Mean Platelet Volume 8.5; Monocytes # (A) 0.4 k/uL (0-1.0); Monocytes % (A) 4 %; Neutrophils # (A) 8.3 k/uL (1.3-7.7); Neutrophils % (A) 88 %; Platelet Count 213 k/uL (150-450); RBC 3.54 m/uL (4.30-5.90); RDW 11.8 % (11.5-15.5); WBC 9.5 k/uL (3.8-10.6)
[2024-04-19] MEDS: MORPHINE SULFATE 4 MG/ML SYRINGE IV STA (17:16)
[2024-04-19] MEDS: SODIUM CHLORIDE 0.9% 1,000 ML IV STA ×2 (17:21→21:14)
[2024-04-19] MEDS: ONDANSETRON 4 MG/2 ML VIAL IVP STA (17:22)
[2024-04-19 17:23] LABS: ALT 18 U/L (4-49); AST 22 U/L (17-59); African American GFR (CKD) 47 (>60 ml/min/1.73 sqM); Albumin 3.8 g/dL (3.5-5.0); Alkaline Phosphatase 53 U/L (38-126); Anion Gap 5 mmol/L; Blood Urea Nitrogen 31 mg/dL (9-20); Carbon Dioxide 27 mmol/L (22-30); Chloride 107 mmol/L (98-107); Glucose 84 mg/dL (74-99); Magnesium 2.3 mg/dL (1.6-2.3); Non-African American GFR(CKD) 40 (>60 ml/min/1.73 sqM); Potassium 4.6 mmol/L (3.5-5.1); Sodium 139 mmol/L (137-145); Total Bilirubin 0.5 mg/dL (0.2-1.3)
[2024-04-19 17:25] LABS: INR 1.1 (<1.2); Partial Thromboplastin Time 22.5 sec (22.0-30.0); Prothrombin Time 11.6 sec (10.0-12.5)
[2024-04-19 17:32] LABS: NT-Pro-B-Type Natriuretic Pept 1360 pg/mL
--- NOTE | 2024-04-19 18:00 | XR ---
EXAMINATION TYPE: XR Hip LT and AP Pelvis DATE OF EXAM: 04/19/2024 5:44 PM COMPARISON: None CLINICAL INDICATION: Male, 78 years old with history of fall; [facility] TECHNIQUE: XR Hip LT and AP Pelvis; hip was examined in the frontal and lateral projections and a AP pelvis. FINDINGS: No evidence for acute process, joint dislocation or significant soft tissue swelling. Osteo phyte formation of the superior acetabulum of the hip. There is mild joint space narrowing. IMPRESSION: 1. No evidence for acute process. 2. Mild hip osteoarthrosis. [facility], Workstation: [id number], 04/19/2024 5:58 PM
--- NOTE | 2024-04-19 18:08 | XR ---
EXAMINATION TYPE: XR ribs LT w pa chest xray DATE OF EXAM: 04/19/2024 5:44 PM COMPARISON: 02/21/2023 CLINICAL INDICATION: Male, 78 years old with history of fall; pain TECHNIQUE: XR ribs LT w pa chest xray; Frontal and oblique views of the ribs with frontal chest radio graph. FINDINGS: Multiple remote left-sided rib injuries. e at least one left-sided rib fracture of left rib 7. Possibly a. Evaluation limited due to overlapping structures. Sternotomy wires of left atrial flor endage occlusion device present. IMPRESSION: 1. Acute left rib 7 and possibly rib 8 fractures. 2. Remote left-sided rib injuries. [facility], Workstation: [id number], 04/19/2024 6:05 PM
[2024-04-19 19:25] LABS: Appearance,Urine Clear (Clear); Bacteria,Urine Rare /hpf; Bilirubin,Urine Negative (Negative); Blood,Urine Negative (Negative); Color,Urine Colorless; Glucose,Urine (UA) Negative (Negative); Hyaline Casts,Urine 13 /lpf (0-2); Ketones,Urine Negative (Negative); Leukocyte Esterase,Urine Moderate (Negative); Mucus,Urine Rare /hpf; Nitrite,Urine Negative (Negative); PH, Urine 5.5 (5.0-8.0); Protein,Urine 1+ (Negative); Specific Gravity,Urine 1.014 (1.001-1.035); Squamous Epithelial Cell,Urine <1 /hpf (0-4); Urobilinogen,Urine <2.0 mg/dL (<2.0); WBC,Urine 20 /hpf (0-5)
[2024-04-19 21:04] VITALS: BP 99/49; PULSE 54
[2024-04-19] MEDS: KETOROLAC 15 MG/ML 1 ML VIAL IVP STA (21:08)
[2024-04-19] MEDS: ACETAMINOPHEN TAB 500 MG TAB PO STA (21:08)
[2024-04-19] MEDS: MORPHINE SULFATE 4 MG/ML SYRINGE IVP STA (21:10)
[2024-04-19] MEDS: cefTRIAXone IN SWFI 1,000 MG/10 ML SYRINGE IVP STA (21:10)
[2024-04-19] MEDS: traMADol 50 MG STARTER PACK 3 TAB BTL PO STA (21:14)
[2024-04-19] MEDS: IBUPROFEN 600 MG STARTER PACK 4 TAB BTL PO STA (21:14)
[2024-04-19 21:47] VITALS: RESP 18
[2024-04-22 11:43] LABS: Phosphorus 2.5 (2.4-5.1)
== END 2024-04-19 21:25 | disposition home or self-care (01) ==
LOC: EC 15:17
DX: S09.90XA Unspecified injury of head, initial encounter (principal); W01.0XXA Fall on same level from slipping, tripping and stumbling without subsequent striking against object, initial encounter; Y92.009 Unspecified place in unspecified non-institutional (private) residence as the place of occurrence of the external cause
CPT/HCPCS: 36415; 93005; 83880; 80053; 83605; 83735; 84100; 84484; 85025; 85610; 85730; 81001; 71101; 73502; 72125; 70486; 70450; 99285; 96374; 96375 ×3; 96376; 96361 ×2; J2270; J2405; J0696; J1885

== ENCOUNTER 2024-04-23 17:37 | Inpatient (IN) | payer MEDICARE, BC ==
--- NOTE | 2024-04-23 18:10 | ED ---
General Adult HPI - General Chief complaint: Fall Stated complaint: L rib pain/L upper/lower abd pain/R arm pain Time Seen by Provider: 04/23/24 17:40 Source: patient, EMS, RN notes reviewed Mode of arrival: EMS Limitations: no limitations - History of Present Illness Initial comments: 78-year-old male presents to the emergency department for evaluation of fall. Patient states that he was carrying in groceries today when he tripped and fell. Patient states that he hit his head. He also reports pain to his ribs and his left shoulder. He reports that he is on blood thinners. He did not lose consciousness. Patient was also evaluated 2 days ago after a different fall. He was diagnosed with 2 rib fractures at that time. He states that he has been using his incentive spirometer. Past medical history includes CAD, diabetes, hypertension. - Related Data Home Medications Medication Instructions Recorded Confirmed Citalopram Hydrobromide [CeleXA] 40 mg PO DAILY 03/21/14 10/11/22 Insulin NPH Hum/Reg Insulin Hm 32 unit SQ HS 02/05/18 10/11/22 [NovoLIN 70-30 100 UNIT/ML VIAL] Spironolactone [Aldactone] 25 mg PO DAILY 07/06/18 10/11/22 ALPRAZolam [Xanax] 0.25 mg PO TID PRN 03/18/21 10/11/22 Finasteride [Proscar] 5 mg PO DAILY 03/18/21 10/11/22 Mometasone/Formoterol [Dulera 100 2 puff PO RT-BID 03/18/21 10/11/22 Mcg-5 Mcg Inhaler] Montelukast [Singulair] 10 mg PO HS 03/18/21 10/11/22 metFORMIN HCL 1,000 mg PO BID 03/18/21 10/11/22 Dulaglutide [Trulicity] 1.5 mg SQ TH 04/21/22 10/11/22 Isosorbide Mononitrate ER [Imdur] 30 mg PO DAILY 04/21/22 10/11/22 buPROPion HCL [buPROPion HCL Xl] 150 mg PO DAILY 04/21/22 10/11/22 Furosemide [Lasix] 40 mg PO BID 10/11/22 10/11/22 Insulin NPH Hum/Reg Insulin Hm 30 unit SQ DAILY 10/11/22 10/11/22 [Novolin 70-30 100 Unit/ml Vial] Metoprolol Tartrate [Lopressor] 12.5 mg PO BID 10/11/22 10/11/22 Mv-Min/Folic/K1/Lycopen/Lutein 1 tab PO DAILY 10/11/22 10/11/22 [Centrum Silver Men Tablet] Tamsulosin [Flomax] 0.4 mg PO DAILY 10/11/22 10/11/22 Previous Rx's Medication Instructions Recorded Apixaban [Eliquis] 5 mg PO BID tab 01/19/18 Atorvastatin [Lipitor] 40 mg PO DAILY tab 01/19/18 Ketorolac [Toradol] 10 mg PO TID #30 tab 02/21/23 Lidocaine 5% Patch [Lidoderm] 1 patch TOPICAL DAILY #14 patch 02/21/23 methocarbamoL [Robaxin-750] 750 mg PO TID #30 tab 02/21/23 Allergies Allergy/AdvReac Type Severity Reaction Status Date / Time No Known Allergies Allergy Verified 04/23/24 17:44 Review of Systems ROS Statement: Those systems with pertinent positive or pertinent negative responses have been documented in the HPI. ROS Other: All systems not noted in ROS Statement are negative. Past Medical History Past Medical History: Asthma, Coronary Artery Disease (CAD), Cancer, CVA/TIA, Diabetes Mellitus, Hyperlipidemia, Hypertension, Myocardial Infarction (VA), Prostate Disorder Additional Past Medical History / Comment(s): pos occult stool,hx SOME UPPER RIGHT CHEST PAIN. HX OF TIA, ENLARGED PROSTATE, [place] X3, Prostate CA Last Myocardial Infarction Date:: 10/01/2011 History of Any Multi-Drug Resistant Organisms: None Reported Past Surgical History: Coronary Bypass/CABG, Heart Catheterization With Stent, Hernia Repair Additional Past Surgical History / Comment(s): INGUINAL HERNIA, RT HEEL SURGERY WITH HARDWARE. BILATERAL CATARACTS.CABG-3 vessels Past Anesthesia/Blood Transfusion Reactions: No Reported Reaction Additional Past Anesthesia/Blood Transfusion Reaction / Comment(s): no hx blood transfusion Date of Last Stent Placement:: 10/01/2011 Past Psychological History: Anxiety, Depression Smoking Status: Never smoker Past Alcohol Use History: None Reported Past Drug Use History: None Reported - Past Family History Mother Family Medical History: Cancer, Diabetes Mellitus Additional Family Medical History / Comment(s): pancreas Father Family Medical History: Cancer General Exam Limitations: no limitations General appearance: alert, in distress (Due to pain) Head exam: Present: atraumatic, normocephalic, normal inspection Eye exam: Present: normal appearance, PERRL, EOMI. Absent: scleral icterus, conjunctival injection, periorbital swelling ENT exam: Present: normal exam, mucous membranes moist, TM's normal bilaterally, normal external ear exam Neck exam: Present: normal inspection, full ROM. Absent: tenderness, meningismus, lymphadenopathy Respiratory exam: Present: normal lung sounds bilaterally, chest wall tenderness (Left-sided). Absent: respiratory distress, wheezes, rales, rhonchi, stridor Cardiovascular Exam: Present: regular rate, normal rhythm, normal heart sounds. Absent: systolic murmur, diastolic murmur, rubs, gallop, clicks GI/Abdominal exam: Present: soft, normal bowel sounds. Absent: distended, tenderness, guarding, rebound, rigid Extremities exam: Present: tenderness (Left anterior shoulder), normal capillary refill. Absent: full ROM, pedal edema, joint swelling, calf tenderness Back exam: Present: normal inspection Neurological exam: Present: alert, oriented X3 Psychiatric exam: Present: normal affect, normal mood Skin exam: Present: warm, dry, intact, normal color. Absent: rash Course Vital Signs 04/23/24 04/23/24 04/23/24 17:40 19:45 21:03 Temperature 98 F 98.3 F Pulse Rate 66 70 73 Respiratory 19 18 18 Rate Blood Pressure 110/55 145/73 133/76 O2 Sat by Pulse 98 92 L 94 L Oximetry 04/23/24 22:28 Temperature Pulse Rate 75 Respiratory 18 Rate Blood Pressure O2 Sat by Pulse 94 L Oximetry Medical Decision Making - Medical Decision Making Was pt. sent in by a medical professional or institution (, PA, MANAGER RADIATION, urgent care, hospital, or residential...) When possible be specific @ -No Did you speak to anyone other than the patient for history (EMS, parent, family, police, friend...)? What history was obtained from this source @ -No Did you review nursing and triage notes (agree or disagree)? Why? @ -I reviewed and agree with nursing and triage notes Were old charts reviewed (outside hosp., previous admission, EMS record, old EKG, old radiological studies, urgent care reports/EKG's, residential records)? Report findings @ -No old charts were reviewed Differential Diagnosis (chest pain, altered mental status, abdominal pain women, abdominal pain men, vaginal bleeding, weakness, fever, dyspnea, syncope, headache, dizziness, GI bleed, back pain, seizure, CVA, palpatations, mental health, musculoskeletal)? @ -Fall, head injury, rib fracture, humeral fracture, this list is not all inclusive EKG interpreted by me (3pts min.). @ -EKG at 1815 shows sinus rhythm with first-degree AV block rate 63, [place] 06/20/1971, QRS 118, QTQTc [id number] X-rays interpreted by me (1pt min.). @ -X-ray of the ribs Shows rib fractures of the lateral fourth, seventh, and eighth ribs; anterior 8th rib fracture X-ray of the left shoulder shows no acute fracture CT interpreted by me (1pt min.). @ -CT brain and C-spine shows no acute process U/S interpreted by me (1pt. min.). @ -None done What testing was considered but not performed or refused? (CT, X-rays, U/S, labs)? Why? @ -None What meds were considered but not given or refused? Why? @ -None Did you discuss the management of the patient with other professionals (ventura cotto i.e. , PA, MANAGER RADIATION, lab, RT, psych nurse, community mental health social worker, double end tenon operator, teacher, commissioned police officer, watch case polisher)? Give summary @ -Case discussed with Dr. Heath, trauma surgery who is accepting of the admi ssion with medical consultation Was smoking cessation discussed for >3mins.? @ -No Was critical care preformed (if so, how long)? @ -No Were there social determinants of health that impacted care today? How? (Homelessness, low income, unemployed, alcoholism, drug addiction, transportation, low edu. Level, literacy, decrease access to med. care, usp, rehab)? @ -No Was there de-escalation of care discussed even if they declined (Discuss DNR or withdrawal of care, Hospice)? DNR status @ -No What co-morbidities impacted this encounter? (DM, HTN, Smoking, COPD, CAD, Cancer, CVA, ARF, Chemo, Hep., AIDS, mental health diagnosis, sleep apnea, morbid obesity)? @ -None Was patient admitted / discharged? Hospital course, mention meds given and route, prescriptions, significant lab abnormalities, going to OR and other pertinent info. @ -Admitted. Patient presented to the emergency department for evaluation of fall and chest pain. Patient had a fall, hit his head and is on blood thinners and therefore a code coag was called. Patient underwent CT brain and C-spine which shows no acute process. His C-spine was cleared and x-rays were obtained. X-ray of the ribs obtained revealing fractures of the lateral fourth seventh and eighth ribs and to the anterior eighth rib. X-ray of the left shoulder shows no acute fracture. While in the ED, patient's O2 sat in the high 80s. Patient was placed on 2 L of oxygen and satting in the low to mid 90s. Patient will be admitted for further management. Case was discussed with Dr. Heath who is accepting of the admission with medical consultation. Patient stable at time admission. Case discussed with Dr. Landers. Undiagnosed new problem with uncertain prognosis? @ -No Drug Therapy requiring intensive monitoring for toxicity (Heparin, Nitro, Insulin, Cardizem)? @ -No Were any procedures done? @ -No Diagnosis/symptom? @ -Rib fractures Acute, or Chronic, or Acute on Chronic? @ -acute Uncomplicated (without systemic symptoms) or Complicated (systemic symptoms)? @ -uncomplicated Side effects of treatment? @ -No Exacerbation, Progression, or Severe Exacerbation? @ -No Poses a threat to life or bodily function? How? (Chest pain, [place], [place], pneumonia, PE, COPD, DKA, ARF, appy, cholecystitis, CVA, Diverticulitis, Homicidal, Suicid al, threat to staff... and all critical care pts) @ -No - Lab Data Result diagrams: 04/23/24 18:05 04/23/24 18:05 Lab Results 04/23/24 04/23/24 04/23/24 Range/Units 18:05 18:05 18:05 WBC 9.0 (3.8-10.6) k/uL RBC 3.66 L (4.30-5.90) m/uL Hgb 11.4 L (13.0-17.5) gm/dL Hct 36.0 L (39.0-53.0) % MCV 98.6 (80.0-100.0) fL MCH 31.2 (25.0-35.0) pg MCHC 31.6 (31.0-37.0) g/dL RDW 12.1 (11.5-15.5) % Plt Count 209 (150-450) k/uL MPV 8.8 Neutrophils % 82 % Lymphocytes % 7 % Monocytes % 7 % Eosinophils % 2 % Basophils % 0 % Neutrophils # 7.4 (1.3-7.7) k/uL Lymphocytes # 0.7 L (1.0-4.8) k/uL Monocytes # 0.6 (0-1.0) k/uL Eosinophils # 0.2 (0-0.7) k/uL Basophils # 0.0 (0-0.2) k/uL PT 11.1 (10.0-12.5) sec INR 1.0 (<1.2) APTT 27.3 (22.0-30.0) sec Sodium 139 (137-145) mmol/L Potassium 5.3 H (3.5-5.1) mmol/L Chloride 107 (98-107) mmol/L Carbon Dioxide 22 (22-30) mmol/L Anion Gap 10 mmol/L BUN 41 H (9-20) mg/dL Creatinine 2.14 H (0.66-1.25) mg/dL Est GFR (CKD-EPI)AfAm 33 (>60 ml/min/1.73 sqM) Est GFR (CKD-EPI)NonAf 29 (>60 ml/min/1.73 sqM) Glucose 52 L (74-99) mg/dL POC Glucose (mg/dL) (70-110) mg/dL POC Glu Pool Hall Inspector ID Plasma Lactic Acid Rei (0.7-2.0) mmol/L Calcium 9.2 (8.4-10.2) mg/dL Total Bilirubin 0.6 (0.2-1.3) mg/dL AST 28 (17-59) U/L ALT 20 (4-49) U/L Alkaline Phosphatase 65 (38-126) U/L Total Protein 6.3 (6.3-8.2) g/dL Albumin 4.0 (3.5-5.0) g/dL 1104/23/24 04/23/24 Range/Units 19:43 21:34 22:23 WBC (3.8-10.6) k/uL RBC (4.30-5.90) m/uL Hgb (13.0-17.5) gm/dL Hct (39.0-53.0) % MCV (80.0-100.0) fL MCH (25.0-35.0) pg MCHC (31.0-37.0) g/dL RDW (11.5-15.5) % Plt Count (150-450) k/uL MPV Neutrophils % % Lymphocytes % % Monocytes % % Eosinophils % % Basophils % % Neutrophils # (1.3-7.7) k/uL Lymphocytes # (1.0-4.8) k/uL Monocytes # (0-1.0) k/uL Eosinophils # (0-0.7) k/uL Basophils # (0-0.2) k/uL PT (10.0-12.5) sec INR (<1.2) APTT (22.0-30.0) sec Sodium (137-145) mmol/L Potassium (3.5-5.1) mmol/L Chloride (98-107) mmol/L Carbon Dioxide (22-30) mmol/L Anion Gap mmol/L BUN (9-20) mg/dL Creatinine (0.66-1.25) mg/dL Est GFR (CKD-EPI)AfAm (>60 ml/min/1.73 sqM) Est GFR (CKD-EPI)NonAf (>60 ml/min/1.73 sqM) Glucose (74-99) mg/dL POC Glucose (mg/dL) 128 H 87 (70-110) mg/dL POC Glu Pool Hall Inspector ID Jluis Canales Melecandi Plasma Lactic Acid Rei 1.5 (0.7-2.0) mmol/L Calcium (8.4-10.2) mg/dL Total Bilirubin (0.2-1.3) mg/dL AST (17-59) U/L ALT (4-49) U/L Alkaline Phosphatase (38-126) U/L Total Protein (6.3-8.2) g/dL Albumin (3.5-5.0) g/dL Disposition Clinical Impression: Ribs, multiple fractures Disposition: ADMITTED IP TO THIS HOSP Condition: Stable Is patient prescribed a controlled substance at d/c from ED?: No
[2024-04-23 18:28] LABS: Basophils % (A) 0 %; Eosinophils # (A) 0.2 k/uL (0-0.7); Eosinophils % (A) 2 %; HGB 11.4 gm/dL (13.0-17.5); Lymphocytes # (A) 0.7 k/uL (1.0-4.8); Lymphocytes % (A) 7 %; MCH 31.2 pg (25.0-35.0); MCHC 31.6 g/dL (31.0-37.0); MCV 98.6 fL (80.0-100.0); Mean Platelet Volume 8.8; Monocytes # (A) 0.6 k/uL (0-1.0); Monocytes % (A) 7 %; Neutrophils # (A) 7.4 k/uL (1.3-7.7); Neutrophils % (A) 82 %; Platelet Count 209 k/uL (150-450); RBC 3.66 m/uL (4.30-5.90); RDW 12.1 % (11.5-15.5)
[2024-04-23 18:37] LABS: ALT 20 U/L (4-49); AST 28 U/L (17-59); African American GFR (CKD) 33 (>60 ml/min/1.73 sqM); Alkaline Phosphatase 65 U/L (38-126); Anion Gap 10 mmol/L; Blood Urea Nitrogen 41 mg/dL (9-20); Calcium 9.2 mg/dL (8.4-10.2); Carbon Dioxide 22 mmol/L (22-30); Chloride 107 mmol/L (98-107); Glucose 52 mg/dL (74-99); Non-African American GFR(CKD) 29 (>60 ml/min/1.73 sqM); Potassium 5.3 mmol/L (3.5-5.1); Sodium 139 mmol/L (137-145); Total Bilirubin 0.6 mg/dL (0.2-1.3); Total Protein 6.3 g/dL (6.3-8.2)
[2024-04-23 18:48] LABS: Partial Thromboplastin Time 27.3 sec (22.0-30.0); Prothrombin Time 11.1 sec (10.0-12.5)
[2024-04-23] MEDS: MORPHINE SULFATE 4 MG/ML SYRINGE IVP STA (18:52)
[2024-04-23] MEDS: DEXTROSE 50% SYRINGE 50 ML IVP STA (18:53)
[2024-04-23] MEDS: SODIUM CHLORIDE 0.9% 1,000 ML IV ONE (18:53)
--- NOTE | 2024-04-23 19:19 | CT ---
EXAMINATION TYPE: CT brain robin wo con DATE OF EXAM: 04/23/2024 COMPARISON: None HISTORY: fall, on thinners CT DLP: 1557.6 mGycm, Automated exposure control for dose reduction was used. CONTRAST: None CT of the brain is performed utilizing 3 mm thick sections through the posterior fossa and 3 mm thick sections through the remaining calvarium. Study is performed within 24 hours of arrival to the hospital. No abnormal hyperdensity is present to suggest an acute intracranial hemorrhage. No mass lesion is evident. No acute infarcts are evident. Minimal periventricular white matter hypodensity is present, likely o n the basis of chronic white matter ischemic changes. Ventricles and sulci are appropriate for the patient age. Paranasal sinuses and mastoid air cells within the [id number] are clear. IMPRESSIONS: 1. No acute intracranial process. Follow-up MRI can be performed as clinically indicated. 2. Minimal chronic appearing periventricular white matter ischemic-type changes and atrophy. CT cervical spine. COMPARISON: None CT of the cervical spine is performed in the axial plane at 2 mm thick sections. Reconstructed image s in the coronal, and sagittal plane are reviewed on the computer. No acute fractures are evident. Vertebral body alignment is normal. Loss of disc height is present C5-6. There is also narrowing of disc height C3-4. Some posterior disc space narrowing is within the remaining cervical spine. Vertebral body heights are preserved. No spinal canal stenosis is evident. Uncovertebral joint hypertrophy is present with mild foraminal narrowing IMPRESSION: 1. No acute osseous abnormality cervical spine. 2. Degenerative disc changes present C5-6 and to a lesser degree elsewhere throughout the cervical sp ine. 3. Some mild foraminal narrowing is present from uncovertebral joint hypertrophy. [facility], Workstation: [facility], 04/23/2024 7:17 PM
[2024-04-23 19:44] LABS: Glucose,Whole Blood 128 mg/dL (70-110)
--- NOTE | 2024-04-23 21:08 | XR ---
EXAMINATION TYPE: XR shoulder complete LT DATE OF EXAM: 04/23/2024 COMPARISON: 07/06/2014 HISTORY: Pain TECHNIQUE: Shoulder examined in 3 projections. FINDINGS: The humeral head articulates with the glenoid. The acromio-clavicular junction is normal. No acute fractures or dislocations are evident. A follow up study can be performed 7-10 days from acute trauma for continued pain. MRI can be perfor med if soft tissue evaluation would be of benefit. IMPRESSION: 1. No acute osseous left shoulder abnormality. [facility], Workstation: [id number], 04/23/2024 9:05 PM
--- NOTE | 2024-04-23 21:12 | XR ---
EXAMINATION TYPE: XR ribs LT w pa chest xray DATE OF EXAM: 04/23/2024 COMPARISON: 04/19/2024 HISTORY: Fall standing, recent history of broken left RIBS TECHNIQUE: Left RIBS examined in 2 projections supplemented with an AP chest FINDINGS: Heart is enlarged. Prior CABG evident. There is chronic elevation of the right diaphragm. No pneumothorax is evident. There is an acute left rib fracture of the lateral fourth rib. Seventh and eighth rib fractures may b e present. A second more anterior eighth rib fracture is present. Rib fractures are more evident on t he current exam IMPRESSION: 1. Lateral fourth, seventh, and eighth rib fractures. A second more anterior eighth rib fracture is present. [facility], Workstation: [facility], 04/23/2024 9:10 PM
[2024-04-23 21:37] LABS: Glucose,Whole Blood 87 mg/dL (70-110)
[2024-04-23] MEDS ORDERED: NALOXONE 0.4 MG/ML 1 ML VIAL IV PRN (22:08)
[2024-04-24] MEDS: MORPHINE SULFATE 4 MG/ML SYRINGE IVP PRN (00:50)
[2024-04-24 02:48] LABS: Glucose,Whole Blood 224 mg/dL (70-110)
[2024-04-24 06:58] LABS: Basophils % (A) 0 %; Eosinophils # (A) 0.1 k/uL (0-0.7); Eosinophils % (A) 1 %; HCT 35.9 % (39.0-53.0); HGB 11.1 gm/dL (13.0-17.5); Hypochromasia Slight; Lymphocytes # (A) 0.7 k/uL (1.0-4.8); Lymphocytes % (A) 8 %; MCH 30.9 pg (25.0-35.0); MCHC 30.8 g/dL (31.0-37.0); MCV 100.5 fL (80.0-100.0); Mean Platelet Volume 8.6; Monocytes # (A) 0.6 k/uL (0-1.0); Monocytes % (A) 8 %; Neutrophils # (A) 6.4 k/uL (1.3-7.7); Neutrophils % (A) 81 %; Platelet Count 209 k/uL (150-450); RBC 3.58 m/uL (4.30-5.90); RDW 11.9 % (11.5-15.5); WBC 7.8 k/uL (3.8-10.6)
[2024-04-24] MEDS: DOCUSATE 100 MG CAP PO SCH (12:05)
[2024-04-24] MEDS: HYDROcodone/APAP 5-325MG 1 EACH TAB PO PRN (12:20)
[2024-04-24 12:23] LABS: Glucose,Whole Blood 322 mg/dL (70-110)
--- NOTE | 2024-04-24 12:32 | XR ---
EXAMINATION TYPE: XR chest 1V portable DATE OF EXAM: 04/24/2024 COMPARISON: NONE CLINICAL INDICATION: Male, 78 years old with history of Chest Trauma; , TECHNIQUE: XR chest 1V portable views of the chest. FINDINGS: Elevated right hemidiaphragm with bilateral subsegmental areas of consolidation and tiny effusion. Ch ronic rib deformities are stable. No overt failure. Heart is enlarged. Median sternotomy changes and each renal appendage clip noted. No pneumothorax. IMPRESSION: 1. Bilateral lower lobe atelectasis favored over pneumonia. 2. Stable right-sided rib fractures. [facility], , 04/24/2024 12:29 PM
[2024-04-24] MEDS ORDERED: DEXTROSE 50% SYRINGE 50 ML IVP PRN ×2 (12:48)
[2024-04-24] MEDS: INSULIN DETEMIR (LEVEMIR) 100 UNIT/ML SYR SQ STA (13:18)
[2024-04-24] MEDS: LIDOCAINE 4% PATCH TOPICAL SCH (13:41)
--- NOTE | 2024-04-24 13:55 | P.GSHP ---
History of Present Illness H&P Date: 04/24/24 CHIEF COMPLAINT: Fall HISTORY OF PRESENT ILLNESS: This is a 78-year-old male who reports that he had been moving things around in his shed. He thinks he may had have hit his toe on the ledge of. Causing him to trip and fall. He landed on the left rib cage and shoulder area. He thinks he may have hit his head. There is a small scrape on the left upper ear. He did not lose consciousness. He reports that it does hurt in the rib cage when taking in a deep breath. He currently denies any katherine rtness of breath. Denies any abdominal pain. Denies any nausea or vomiting. He does complain of constipation. It has been several days since his last bowel movement. He does take Eliquis at home. Imaging completed had revealed left lateral 4 7 and 8 rib fractures. PAST MEDICAL HISTORY: See below PAST SURGICAL HISTORY: See below MEDICATIONS: See below ALLERGIES: See below SOCIAL HISTORY: No illicit drug use. REVIEW OF SYSTEMS: CONSTITUTIONAL: Denies fever or chills. HEENT: Denies blurred vision, vision changes, or eye pain. Denies hemoptysis CARDIOVASCULAR: Denies chest pain or pressure. RESPIRATORY: No shortness of breath. GASTROINTESTINAL: See HPI for pertinent findings HEMATOLOGIC: Denies bleeding disorders. GENITOURINARY: Denies any blood in urine or increased urinary frequency. SKIN: Denies pruitis. Denies rash. PHYSICAL EXAM: VITAL SIGNS: Reviewed GENERAL: Well-developed in no acute distress. HEENT: No sclera icterus. Extraocular movements grossly intact. Moist buccal mucosa. Head is atraumatic, normocephalic. No nasal drainage. Patient has a small laceration on the outer edge of the left ear Chest: Equal breath sounds bilaterally. No bruising along the left chest wall. ABDOMEN: Soft. Mildly distended. Nontender. NEUROLOGIC: Alert and oriented. Cranial nerves II through XII grossly intact. Musculoskeletal: Patient able to move all 4 extremities LABORATORY DATA: WBC 7.8 Hgb 11.1 platelets 209 Sodium 139 potassium is 5.3 creatinine 2.14 Lactic acid 1.5 LFTs normal IMAGING: CT scan of the head and cervical spine. No acute intracranial process. No acute osseous abnormality of cervical spine Left shoulder x-ray reports no acute abnormality X-ray of left ribs reports lateral fourth, seventh and eighth rib fractures. A second more anterior eighth rib fractures present ASSESSMENT: 1. Fall with trauma to left-sided ribs with fracture 2. Left lateral fourth, seventh and eighth rib fracture and second more anterior eighth rib fracture 3. Constipation PLAN: -Consult placed for medicine and pulmonary service -Continue pain management. [place] added for oral pain medication. Lidocaine patch and muscle relaxer also added -Colace and MiraLAX added for constipation -Consult PT OT for ambulation -Encourage patient to use incentive spirometer -Encourage patient to increase activity level -Continue a heart healthy diet -Repeat labs in a.m. -GI prophylaxis Pepcid Physician Core Drilling Supervisor note has been reviewed by physician. Signing provider agrees with the documented findings, assessment, and plan of care. Attestation Patient seen and examined at bedside in the emergency department on 04/24/2024. Presented with chief complaint of fall and found to have left-sided rib fractures. Pain is in the left chest with deep inspiration. Denies any additional pain at this time. Continue with pain medication and oral narcotic was added along with muscle relaxer and lidocaine patch. Continue with incentive spirometry. Medicine team and pulmonary service have been consulted. Patient will need physical therapy prior to any discharge. Debora Amezquita DO Past Medical History Past Medical History: Asthma, Coronary Artery Disease (CAD), Cancer, CVA/TIA, Diabetes Mellitus, Hyperlipidemia, Hypertension, Myocardial Infarction ([place]), Prostate Disorder Additional Past Medical History / Comment(s): pos occult stool,hx SOME UPPER RIGHT CHEST PAIN. HX OF TIA, ENLARGED PROSTATE, [place] X3, Prostate CA Last Myocardial Infarction Date:: 10/01/2011 History of Any Multi-Drug Resistant Organisms: None Reported Past Surgical History: Coronary Bypass/CABG, Heart Catheterization With Stent, Hernia Repair Additional Past Surgical History / Comment(s): INGUINAL HERNIA, RT HEEL SURGERY WITH HARDWARE. BILATERAL CATARACTS.CABG-3 vessels Past Anesthesia/Blood Transfusion Reactions: No Reported Reaction Additional Past Anesthesia/Blood Transfusion Reaction / Comment(s): no hx blood transfusion Date of Last Stent Placement:: 10/01/2011 Past Psychological History: Anxiety, Depression Smoking Status: Never smoker Past Alcohol Use History: None Reported Past Drug Use History: None Reported - Past Family History Mother Family Medical History: Cancer, Diabetes Mellitus Additional Family Medical History / Comment(s): pancreas Father Family Medical History: Cancer Medications and Allergies Home Medications Medication Instructions Recorded Confirmed Type Citalopram Hydrobromide [CeleXA] 40 mg PO DAILY 03/21/14 04/24/24 History Apixaban [Eliquis] 5 mg PO BID tab 01/19/18 04/24/24 Rx Atorvastatin [Lipitor] 40 mg PO DAILY tab 01/19/18 04/24/24 Rx Insulin NPH Hum/Reg Insulin Hm 32 unit SQ HS 02/05/18 04/24/24 History [NovoLIN 70-30 100 UNIT/ML VIAL] Spironolactone [Aldactone] 25 mg PO DAILY 07/06/18 04/24/24 History ALPRAZolam [Xanax] 0.25 mg PO TID PRN 03/18/21 04/24/24 History Finasteride [Proscar] 5 mg PO DAILY 03/18/21 04/24/24 History Montelukast [Singulair] 10 mg PO HS 03/18/21 04/24/24 History metFORMIN HCL 1,000 mg PO BID 03/18/21 04/24/24 History Isosorbide Mononitrate ER [Imdur] 30 mg PO DAILY 04/21/22 04/24/24 History buPROPion HCL [buPROPion HCL Xl] 150 mg PO DAILY 04/21/22 04/24/24 History Furosemide [Lasix] 40 mg PO BID 10/11/22 04/24/24 History Insulin NPH Hum/Reg Insulin Hm 42 unit SQ DAILY 10/11/22 04/24/24 History [Novolin 70-30 100 Unit/ml Vial] Metoprolol Tartrate [Lopressor] 12.5 mg PO BID 10/11/22 04/24/24 History Tamsulosin [Flomax] 0.4 mg PO DAILY 10/11/22 04/24/24 History Docusate Sodium [Dok] 100 mg PO BID 04/24/24 04/24/24 History Dulaglutide [Trulicity] 3 mg SQ Q7D 04/24/24 04/24/24 History Fluticasone/Vilanterol [Breo 1 puff INHALATION RT-DAILY 04/24/24 04/24/24 History Ellipta 100-25 Mcg Inhalr] Losartan [Cozaar] 25 mg PO DAILY 04/24/24 04/24/24 History Meclizine [Antivert] 12.5 mg PO TID PRN 04/24/24 04/24/24 History Allergies Allergy/AdvReac Type Severity Reaction Status Date / Time No Known Allergies Allergy Verified 04/24/24 08:07 Surgical - Exam Osteopathic Statement: *. No significant issues noted on an osteopathic structural exam other than those noted in the History and Physical/Consult. Vital Signs Temp Pulse Resp BP Pulse Ox 98 F 66 19 110/55 98 04/23/24 17:40 04/23/24 17:40 04/23/24 17:40 04/23/24 17:40 04/23/24 17:40 Patient Seen Date: 04/24/24 Patient Seen Time: 09:00 Results - Labs 04/25/24 03:13 04/25/24 03:13 Abnormal Lab Results - Last 24 Hours (Table) 04/23/24 04/23/24 04/23/24 Range/Units 18:05 18:05 19:43 RBC 3.66 L (4.30-5.90) m/uL Hgb 11.4 L (13.0-17.5) gm/dL Hct 36.0 L (39.0-53.0) % MCV (80.0-100.0) fL MCHC (31.0-37.0) g/dL Lymphocytes # 0.7 L (1.0-4.8) k/uL Potassium 5.3 H (3.5-5.1) mmol/L BUN 41 H (9-20) mg/dL Creatinine 2.14 H (0.66-1.25) mg/dL Glucose 52 L (74-99) mg/dL POC Glucose (mg/dL) 128 H (70-110) mg/dL 04/24/24 04/24/24 Range/Units 02:47 06:21 RBC 3.58 L (4.30-5.90) m/uL Hgb 11.1 L (13.0-17.5) gm/dL Hct 35.9 L (39.0-53.0) % MCV 100.5 H (80.0-100.0) fL MCHC 30.8 L (31.0-37.0) g/dL Lymphocytes # 0.7 L (1.0-4.8) k/uL Potassium (3.5-5.1) mmol/L BUN (9-20) mg/dL Creatinine (0.66-1.25) mg/dL Glucose (74-99) mg/dL POC Glucose (mg/dL) 224 H (70-110) mg/dL Diabetes panel 04/23/24 Range/Units 18:05 Sodium 139 (137-145) mmol/L Potassium 5.3 H (3.5-5.1) mmol/L Chloride 107 (98-107) mmol/L Carbon Dioxide 22 (22-30) mmol/L BUN 41 H (9-20) mg/dL Creatinine 2.14 H (0.66-1.25) mg/dL Glucose 52 L (74-99) mg/dL Calcium 9.2 (8.4-10.2) mg/dL AST 28 (17-59) U/L ALT 20 (4-49) U/L Alkaline Phosphatase 65 (38-126) U/L Total Protein 6.3 (6.3-8.2) g/dL Albumin 4.0 (3.5-5.0) g/dL Calcium panel 04/23/24 Range/Units 18:05 Calcium 9.2 (8.4-10.2) mg/dL Albumin 4.0 (3.5-5.0) g/dL Pituitary panel 04/23/24 Range/Units 18:05 Sodium 139 (137-145) mmol/L Potassium 5.3 H (3.5-5.1) mmol/L Chloride 107 (98-107) mmol/L Carbon Dioxide 22 (22-30) mmol/L BUN 41 H (9-20) mg/dL Creatinine 2.14 H (0.66-1.25) mg/dL Glucose 52 L (74-99) mg/dL Calcium 9.2 (8.4-10.2) mg/dL Adrenal panel 04/23/24 Range/Units 18:05 Sodium 139 (137-145) mmol/L Potassium 5.3 H (3.5-5.1) mmol/L Chloride 107 (98-107) mmol/L Carbon Dioxide 22 (22-30) mmol/L BUN 41 H (9-20) mg/dL Creatinine 2.14 H (0.66-1.25) mg/dL Glucose 52 L (74-99) mg/dL Calcium 9.2 (8.4-10.2) mg/dL Total Bilirubin 0.6 (0.2-1.3) mg/dL AST 28 (17-59) U/L ALT 20 (4-49) U/L Alkaline Phosphatase 65 (38-126) U/L Total Protein 6.3 (6.3-8.2) g/dL Albumin 4.0 (3.5-5.0) g/dL
--- NOTE | 2024-04-24 15:10 | P.PAINPG ---
Objective - Vital Signs Vital signs: Vital Signs Temp 97.8 F 04/24/24 08:30 Pulse 69 04/24/24 14:13 Resp 16 04/24/24 14:13 BP 138/91 04/24/24 14:13 Pulse Ox 95 04/24/24 12:18 FiO2 Intake & Output 04/23/24 04/24/24 04/24/24 18:59 06:59 18:59 Output Total 400 200 Balance -400 -200 Weight 84.368 kg Output: Urine 400 200 Other: Voiding Method Urinal - Labs CBC & Chem 7: 04/24/24 06:21 04/23/24 18:05 Labs: Abnormal Lab Results - Last 24 Hours (Table) 04/23/24 04/23/24 04/23/24 Range/Units 18:05 18:05 19:43 RBC 3.66 L (4.30-5.90) m/uL Hgb 11.4 L (13.0-17.5) gm/dL Hct 36.0 L (39.0-53.0) % MCV (80.0-100.0) fL MCHC (31.0-37.0) g/dL Lymphocytes # 0.7 L (1.0-4.8) k/uL Potassium 5.3 H (3.5-5.1) mmol/L BUN 41 H (9-20) mg/dL Creatinine 2.14 H (0.66-1.25) mg/dL Glucose 52 L (74-99) mg/dL POC Glucose (mg/dL) 128 H (70-110) mg/dL 04/24/24 04/24/24 04/24/24 Range/Units 02:47 06:21 12:22 RBC 3.58 L (4.30-5.90) m/uL Hgb 11.1 L (13.0-17.5) gm/dL Hct 35.9 L (39.0-53.0) % MCV 100.5 H (80.0-100.0) fL MCHC 30.8 L (31.0-37.0) g/dL Lymphocytes # 0.7 L (1.0-4.8) k/uL Potassium (3.5-5.1) mmol/L BUN (9-20) mg/dL Creatinine (0.66-1.25) mg/dL Glucose (74-99) mg/dL POC Glucose (mg/dL) 224 H 322 H (70-110) mg/dL PQRS Measure Charge Sheet Comment: HISTORY OF PRESENT ILLNESS: A 78 yr old inpatient male w at side presents today w severe acute L shoulder and L rib pain secondary to fall 1 day ago for evaluation. Pt states this is his second fall within the last few days despite the use of a walker at home. He was in the ER approximately 4 days ago with broken rib(s) also. Pt states pain level is provoked at 10 /10 in intensity, constant, localized in the L rib area, sharp in character without shooting pain. Pain is provoked by any movement at all, though his L shoulder pain is worst at 5/ 10, provoked with lifting. He appears to have good LUE abduction/ adduction, only limited to L rib pain. Pain is alleviated by medications (Morphine 4mg IVP q4h prn, Lidoderm 4% QAM), repositioning and rest . He requested more pain medication. PMH: OA, Asthma, CAD, Cancer, CVA, NIDDM II, Hyperlipidemia, HTN, [place] x3 (last 2011), Prostate CA, MDD/ Anxiety PSH: CABG x3, Heart Catheterization With Stent, Inguinal Hernia Repair, R Heel Surgery w Hardware, BL Cataracts Extraction SH: Negative x3 FH: Mo- Pancreatic CA. Fa- CA All: See list Meds: See list REVIEW OF ORGAN SYSTEMS: CONSTITUTIONAL: No fevers or chills. No recent weight loss. NEUROLOGICAL: + numbness and tingling along the distal e xtremities. No seizure disorders or headaches. MUSCULOSKELETAL: + pain PSYCHIATRIC: Denies current depression or suicidal thoughts. Physical Examinations : Constitutional : Cooperative , not in acute distress . Neurologic : Cranial nerve II to XII intact. No focal neurological deficits. Psychiatric : alert & oriented x 3. Matching mood & appropriate affect. Judgment & insight intact. Musculoskeletal : +Diffuse L rib TTP Cervical Spine Motor strength in the deltoid and biceps: Normal right side. Normal Left side Motor strength biceps and the wrist extensors: Normal right side . Normal left side Motor strength in the triceps muscle: Normal right side. Normal left side Deep tendon reflexes: Normal at the biceps. Normal at Brachioradialis. Normal at triceps Vertebral body tenderness to deep palpation over Cervical facet loading test: positive bilaterally Spurling test: positive bilaterally Neck distraction test: positive bilaterally [place] sign: positive bilaterally Lumbar spine Motor strength lower extremities ,thigh and legs 5/5 Right side , 5/5 Left side Deep tendon reflexes : Normal Knee Jerk. Normal Ankle Jerk Vertebral body tenderness over Willson Test positive Lumbar facet Loading Test: positive Right / positive Left Range of motion of the lumbar spine Flexion 30 degrees, extension 10 degrees Straight Leg Raise test: Left/ Right positive at degrees Ramin test: positive right / positive left. Severe tenderness over the Sacroiliac joint on the Right / Left sides Gaenslen test: positive bilaterally Seated flexion test: positive bilaterally. Sacral spine : Severe tenderness over the Sacroiliac joint: right side / left side Range of motion: Flexion of the lumbar spine <60 degrees Range of motion: Extension of the lumbar spine <20 degrees Gaenslen's Test positive Ramin test: positive right side / left side Thigh Thrust Test Sacral Thrust Test Imaging: CT Head/ C spine from 04/23/24 reviewed X rays of L shoulder from 04/23/24 reviewed CXR from 04/23/24 reviewed Assessment/ Plan : L shoulder contusion, L 4th/ 7th/ 8th rib fractures Recommendation of medication management. Add [place] 7.5/325mg q6hr prn pain. Pt had taken Eliquis as his home medication. All questions answered. I have spent greater than 30 minutes on patient care today. Dr Joshua was available by phone for the evaluation of this patient. The time was used to review the medical records including relevant urine studies and Prescription history (MAPs), review of the available imaging, evaluation and examination of the patient, coordination of care with the medical staff and if applicable referring physicians, as well as creation of the medical record PQRS Narrative: Smoking Status Never smoker Blood Pressure [Right Arm] 150/66 Blood Pressure 138/91 Pain Intensity 5 Pain Scale Used Numeric (1 - 10) Scale Used Numeric (1 - 10) Home Medications: Ambulatory Orders Citalopram Hydrobromide [CeleXA] 40 mg PO DAILY 03/21/14 Apixaban [Eliquis] 5 mg PO BID tab 01/19/18 Atorvastatin [Lipitor] 40 mg PO DAILY tab 01/19/18 Insulin NPH Hum/Reg Insulin Hm [NovoLIN 70-30 100 UNIT/ML VIAL] 32 unit SQ HS 02/05/18 Spironolactone [Aldactone] 25 mg PO DAILY 07/06/18 ALPRAZolam [Xanax] 0.25 mg PO TID PRN 03/18/21 Finasteride [Proscar] 5 mg PO DAILY 03/18/21 Montelukast [Singulair] 10 mg PO HS 03/18/21 metFORMIN HCL 1,000 mg PO BID 03/18/21 Isosorbide Mononitrate ER [Imdur] 30 mg PO DAILY 04/21/22 buPROPion HCL [buPROPion HCL Xl] 150 mg PO DAILY 04/21/22 Furosemide [Lasix] 40 mg PO BID 10/11/22 Insulin NPH Hum/Reg Insulin Hm [Novolin 70-30 100 Unit/ml Vial] 42 unit SQ DAILY 10/11/22 Metoprolol Tartrate [Lopressor] 12.5 mg PO BID 10/11/22 Tamsulosin [Flomax] 0.4 mg PO DAILY 10/11/22 Docusate Sodium [Dok] 100 mg PO BID 04/24/24 Dulaglutide [Trulicity] 3 mg SQ Q7D 04/24/24 Fluticasone/Vilanterol [Breo Ellipta 100-25 Mcg Inhalr] 1 puff INHALATION RT- DAILY 04/24/24 Losartan [Cozaar] 25 mg PO DAILY 04/24/24 Meclizine [Antivert] 12.5 mg PO TID PRN 04/24/24 Controlled Substance Measures - Controlled Substance Measures Is patient prescribed a controlled substance at discharge?: No
--- NOTE | 2024-04-24 16:18 | P.CONS ---
History of Present Illness - Reason for Consult Consult date: 04/24/24 Medical management Requesting physician: Janell Alaniz - Chief Complaint Fall injury - History of Present Illness Patient is a 78 year old male with PMH of multiple falls who presented to the ED after a fall. He mentions about a fall a couple days ago that caused him to have rib fractures. Yesterday he had another fall while coming back from the grocery store. He was carrying heavy bags in bith his hands.There are 2 steps in his garage. While trying to climb the 2nd stair he felt dizzy and like the room was spinning, lost balance and fell backwards and towards his right side, hitting his head and bruising his ear. He did not lose consciousness, but was not able to get up on his own and was lying on the ground for about 40 minutes. Currently he complains of pain in the left lateral side of the chest that is worsened with deep breathing and coughing. He has had multiple such falls due to feeling dizzy and losing balance and has had fractured ribs in the past as well. Additonally, he mentions being very forgetful lately. Denies fever,chills, headache, shortnes s of breath, cough, nausea, vomiting. ED documentation reviewed and case discussed with ED provider. In the ED he was treated with morphine, 0.9 normal saline and dextrose. Vitals: T 98.2F, P 66 bpm, RR 19, BP 110/55, O2 sat 98% on RA EKG: sinus rhythm, first degree AV block with [place] 273 ms, poor R wave progression, rate of 63 bpm, QTc 457 ms Ribs with chest x-ray: Lateral fourth, seventh and eighth rib fractures. A second more anterior eighth rib fracture is present Chest x-ray: Bilateral lower lobe atelectasis favored over pneumonia, stable right-sided rib fractures CT head: No acute intracranial process, minimal chronic appearing periventricular white matter ischemic changes and atrophy CT cervical spine: No acute orders abnormality of cervical spine, degenerative disc changes present C5-C6 and to a lesser degree elsewhere throughout the cervical spine, mild foraminal narrowing is present Shoulder x-ray: No acute osseous left shoulder abnormality Labs on presentation: Hemoglobin 7.4, PT 11.1, INR 1, potassium 5.3, BUN 41, creatinine 2.14, glucose 52 Review of systems: Pertinent positives and negatives as discussed in HPI, a complete review of systems was performed and all other systems are negative. PMH: multiple falls, Asthma,CAD, CVA/TIA, Prostate cancer, HTN,DM,[place], Abnormal rhythm PSH:CABG, Heart Catheterisation with stent placement, Hernia repair Allergies: NKDA Social history: Tobacco: Denies use Alcohol: Denies use Recreational drugs: Denies use Travel: No recent travel history Sick contacts: None Physical examination: General: nontoxic, no distress, appears at stated age Derm: warm, dry, intact Head: bruise on pinna of the left ear, normocephalic, symmetric Eyes: EOMI, anicteric sclera Mouth: no lip lesion, mucus membranes moist Cardiovascular: S1 S2 reg, no murmur Lungs: CTA bilateral, no rhonchi, no rales, no accessory muscle use Abdominal: soft, tender to deep palpation in LLQ Extremities: No cyanosis, clubbing, or pedal edema. Neuro: Alert, Oriented, Gross neurological examination did not reveal any focal deficits. Psych: well appearing, appropriate affect Assessment/Plan: The patient is a 78 year old male with PMH of multiple falls, CABG who presented to the ER after a fall and hitting his head, sustaining multiple rib fractures. He has been admitted for further evaluation and management of the same. #. Multiple Rib fracture, secondary to multiple mechanical falls Continue [place], Lidocaine patch and methocarbamol 750 mg PO QID for pain management Encourage use of incentive spirometer PT OT consulted #. Constipation Colace and MiraLAX started today #. Insulin-dependent diabetes mellitus Continue insulin sliding scale Levemir to 7 units given now Levemir 21 units at bedtime #. History of CAD with CABG Continue metoprolol 12.5 mg p.o. twice daily, apixaban 5 mg p.o. twice daily, atorvastatin 40 mg p.o. daily, Imdur 30 mg p.o. daily #. History of BPH Continue tamsulosin 0.4 mg p.o. daily #. Anxiety Continuing Xanax 0.25 mg p.o. 3 times daily as needed #. History of asthma Continue Singulair 10 mg p.o. at bedtime F: E:Replete as required N:Heart healthy diet A: DVT prophylaxis: Eliquis 5mg PO TID GI prophylaxis: Famotidine 20 mg p.o. twice daily The patient is admitted with an anticipated less than 2 midnight stay for evaluation of multiple falls CODE STATUS: Full Code Discussed with: Patient Anticipated discharge place: Home Past Medical History Past Medical History: Asthma, Coronary Artery Disease (CAD), Cancer, CVA/TIA, Diabetes Mellitus, Hyperlipidemia, Hypertension, Myocardial Infarction ([place]), Prostate Disorder Additional Past Medical History / Comment(s): pos occult stool,hx SOME UPPER RIGHT CHEST PAIN. HX OF TIA, ENLARGED PROSTATE, [place] X3, Prostate CA Last Myocardial Infarction Date:: 10/01/2011 History of Any Multi-Drug Resistant Organisms: None Reported Past Surgical History: Coronary Bypass/CABG, Heart Catheterization With Stent, Hernia Repair Additional Past Surgical History / Comment(s): INGUINAL HERNIA, RT HEEL SURGERY WITH HARDWARE. BILATERAL CATARACTS.CABG-3 vessels Past Anesthesia/Blood Transfusion Reactions: No Reported Reaction Additional Past Anesthesia/Blood Transfusion Reaction / Comm: no hx blood transfusion Date of Last Stent Placement:: 10/01/2011 Past Psychological History: Anxiety, Depression Smoking Status: Never smoker Past Alcohol Use History: None Reported Past Drug Use History: None Reported - Past Family History Mother Family Medical History: Cancer, Diabetes Mellitus Additional Family Medical History / Comment(s): pancreas Father Family Medical History: Cancer Medications and Allergies Home Medications Medication Instructions Recorded Confirmed Type Citalopram Hydrobromide [CeleXA] 40 mg PO DAILY 03/21/14 04/24/24 History Apixaban [Eliquis] 5 mg PO BID tab 01/19/18 04/24/24 Rx Atorvastatin [Lipitor] 40 mg PO DAILY tab 01/19/18 04/24/24 Rx Insulin NPH Hum/Reg Insulin Hm 32 unit SQ HS 02/05/18 04/24/24 History [NovoLIN 70-30 100 UNIT/ML VIAL] Spironolactone [Aldactone] 25 mg PO DAILY 07/06/18 04/24/24 History ALPRAZolam [Xanax] 0.25 mg PO TID PRN 03/18/21 04/24/24 History Finasteride [Proscar] 5 mg PO DAILY 03/18/21 04/24/24 History Montelukast [Singulair] 10 mg PO HS 03/18/21 04/24/24 History metFORMIN HCL 1,000 mg PO BID 03/18/21 04/24/24 History Isosorbide Mononitrate ER [Imdur] 30 mg PO DAILY 04/21/22 04/24/24 History buPROPion HCL [buPROPion HCL Xl] 150 mg PO DAILY 04/21/22 04/24/24 History Furosemide [Lasix] 40 mg PO BID 10/11/22 04/24/24 History Insulin NPH Hum/Reg Insulin Hm 42 unit SQ DAILY 10/11/22 04/24/24 History [Novolin 70-30 100 Unit/ml Vial] Metoprolol Tartrate [Lopressor] 12.5 mg PO BID 10/11/22 04/24/24 History Tamsulosin [Flomax] 0.4 mg PO DAILY 10/11/22 04/24/24 History Docusate Sodium [Dok] 100 mg PO BID 04/24/24 04/24/24 History Dulaglutide [Trulicity] 3 mg SQ Q7D 04/24/24 04/24/24 History Fluticasone/Vilanterol [Breo 1 puff INHALATION RT-DAILY 04/24/24 04/24/24 History Ellipta 100-25 Mcg Inhalr] Losartan [Cozaar] 25 mg PO DAILY 04/24/24 04/24/24 History Meclizine [Antivert] 12.5 mg PO TID PRN 04/24/24 04/24/24 History Allergies Allergy/AdvReac Type Severity Reaction Status Date / Time No Known Allergies Allergy Verified 04/24/24 08:07 Physical Exam Vitals: Vital Signs Temp Pulse Pulse Resp BP BP Pulse Ox 04/24/24 14:13 69 16 138/91 04/24/24 12:18 70 16 150/66 95 04/24/24 08:30 97.8 F 69 16 150/66 95 04/24/24 04:08 74 20 145/66 95 04/24/24 02:18 22 04/24/24 00:46 98.2 F 72 20 141/65 96 04/23/24 22:28 75 18 94 L 04/23/24 21:03 73 18 133/76 94 L 04/23/24 19:45 98.3 F 70 18 145/73 92 L 04/23/24 17:40 98 F 66 19 110/55 98 Intake and Output 04/24/24 04/24/24 04/24/24 06:59 14:59 22:59 Output Total 400 200 Balance -400 -200 Output: Urine 400 200 Other: Voiding Method Urinal Results CBC & Chem 7: 04/24/24 06:21 04/23/24 18:05 Labs: Abnormal Lab Results - Last 24 Hours (Table) 04/23/24 04/23/24 04/23/24 Range/Units 18:05 18:05 19:43 RBC 3.66 L (4.30-5.90) m/uL Hgb 11.4 L (13.0-17.5) gm/dL Hct 36.0 L (39.0-53.0) % MCV (80.0-100.0) fL MCHC (31.0-37.0) g/dL Lymphocytes # 0.7 L (1.0-4.8) k/uL Potassium 5.3 H (3.5-5.1) mmol/L BUN 41 H (9-20) mg/dL Creatinine 2.14 H (0.66-1.25) mg/dL Glucose 52 L (74-99) mg/dL POC Glucose (mg/dL) 128 H (70-110) mg/dL 04/24/24 04/24/24 04/24/24 Range/Units 02:47 06:21 12:22 RBC 3.58 L (4.30-5.90) m/uL Hgb 11.1 L (13.0-17.5) gm/dL Hct 35.9 L (39.0-53.0) % MCV 100.5 H (80.0-100.0) fL MCHC 30.8 L (31.0-37.0) g/dL Lymphocytes # 0.7 L (1.0-4.8) k/uL Potassium (3.5-5.1) mmol/L BUN (9-20) mg/dL Creatinine (0.66-1.25) mg/dL Glucose (74-99) mg/dL POC Glucose (mg/dL) 224 H 322 H (70-110) mg/dL
[2024-04-24 17:09] LABS: Glucose,Whole Blood 315 mg/dL (70-110)
[2024-04-24] MEDS: INSULIN ASPART (NovoLOG) 100 UNIT/ML VIAL SQ SCH (17:14)
[2024-04-24] MEDS: methocarbamoL 750 MG TAB PO SCH (19:19)
[2024-04-24] MEDS: MONTELUKAST 10 MG TAB PO SCH (20:47)
[2024-04-24] MEDS: APIXABAN 5 MG TAB PO SCH (20:47)
[2024-04-24] MEDS: FAMOTIDINE 20 MG TAB PO SCH (20:47)
[2024-04-24] MEDS: METOPROLOL TARTRATE 12.5 MG TAB PO SCH (20:48)
[2024-04-24 21:10] LABS: Glucose,Whole Blood 134 mg/dL (70-110)
[2024-04-24] MEDS: INSULIN DETEMIR (LEVEMIR) 100 UNIT/ML SYR SQ ONE (21:54)
[2024-04-25 07:02] LABS: Glucose,Whole Blood 67 mg/dL (70-110)
[2024-04-25 07:21] LABS: Glucose,Whole Blood 76 mg/dL (70-110)
[2024-04-25 08:45] LABS: BUN/Creat Ratio 19.54 Ratio (12.00-20.00); Blood Urea Nitrogen 25.4 mg/dL (9.0-27.0); Calcium 8.7 mg/dL (8.7-10.3); Carbon Dioxide 24.1 mmol/L (21.6-31.8); Chloride 109 mmol/L (96-109); Glucose 95 mg/dL (70-110); Potassium 4.4 mmol/L (3.5-5.5); Sodium 142 mmol/L (135-145)
[2024-04-25] MEDS: ISOSORBIDE MONONITRATE ER 30 MG TAB.ER.24H PO SCH (08:50)
[2024-04-25] MEDS: ATORVASTATIN 40 MG TAB PO SCH (08:50)
[2024-04-25] MEDS: TAMSULOSIN 0.4 MG CAP.ER.24H PO SCH (08:50)
[2024-04-25] MEDS: polyethylene glycoL 3350 17 GM POWD.PACK PO SCH (08:54)
[2024-04-25 09:28] LABS: HCT 33.2 % (39.6-50.0); HGB 10.9 g/dL (13.0-17.0); MCH 31.7 pg (27.0-32.0); MCHC 32.8 g/dL (32.0-37.0); MCV 96.5 FL (80.0-97.0); Mean Platelet Volume 11.4 FL (9.5-12.2); NRBC Per 100 WBC 0 X 10*3/uL (0.00-0.01); Platelet Count 208 X 10*3/uL (140-440); RBC 3.44 X 10*6/uL (4.40-5.60); RDW 12.1 % (11.5-14.5); WBC 7.37 X 10*3/uL (4.50-10.00)
[2024-04-25] MEDS ORDERED: bisacodyL 10 MG SUPP RECTAL PRN (10:53)
[2024-04-25 11:43] LABS: Glucose,Whole Blood 302 mg/dL (70-110)
--- NOTE | 2024-04-25 14:29 | P.PN ---
Subjective Progress Note Date: 04/25/24 Principal diagnosis: Hospital course: Patient is a 78 year old male with PMH of multiple falls who presented to the ED after a fall. He mentions about a fall a couple days ago that caused him to have rib fractures. Yesterday he had another fall while coming back from the grocery store. He was carrying heavy bags in bith his hands.There are 2 steps in his garage. While trying to climb the 2nd stair he felt dizzy and like the room was spinning, lost balance and fell backwards and towards his right side, hitting his head and bruising his ear. He did not lose consciousness, but was not able to get up on his own and was lying on the ground for about 40 minutes. Currently he complains of pain in the left lateral side of the chest that is worsened with deep breathing and coughing. He has had multiple such falls due to feeling dizzy and losing balance and has had fractured ribs in the past as well. Additonally, he mentions being very forgetful lately. Denies fever,chills, headache, shortness of breath, cough, nausea, vomiting. ED documentation reviewed and case discussed with ED provider. In the ED he was treated with morphine, 0.9 normal saline and dextrose. Vitals: T 98.2F, P 66 bpm, RR 19, BP 110/55, O2 sat 98% on RA EKG: sinus rhythm, first degree AV block with [place] 273 ms, poor R wave progression, rate of 63 bpm, QTc 457 ms Ribs with chest x-ray: Lateral fourth, seventh and eighth rib fractures. A second more anterior eighth rib fracture is present Chest x-ray: Bilateral lower lobe atelectasis favored over pneumonia, stable right-sided rib fractures CT head: No acute intracranial process, minimal chronic appearing periventricula r white matter ischemic changes and atrophy CT cervical spine: No acute orders abnormality of cervical spine, degenerative disc changes present C5-C6 and to a lesser degree elsewhere throughout the ce rvical spine, mild foraminal narrowing is present Shoulder x-ray: No acute osseous left shoulder abnormality Labs on presentation: Hemoglobin 7.4, PT 11.1, INR 1, potassium 5.3, BUN 41, creatinine 2.14, glucose 52 04/25/24: Patient seen and evaluated bedside today. No acute events overnight. Complains of pain on the left lateral side of the chest. Continues to use the in centive spirometer. Labs today show hemoglobin 10.9, sodium 142, potassium 4.4, A1c 6.2. Review of systems: Pertinent positives and negatives as discussed in HPI, a complete review of systems was performed and all other systems are negative. Vitals: Signs Reviewed Physical examination: General: nontoxic, no distress, appears at stated age Derm: warm, dry, intact Head: bruise on pinna of the left ear, normocephalic, symmetric Eyes: EOMI, anicteric sclera Mouth: no lip lesion, mucus membranes moist Cardiovascular: S1 S2 reg, no murmur Lungs: CTA bilateral, no rhonchi, no rales, no accessory muscle use Abdominal: soft, tender to deep palpation in LLQ Extremities: No cyanosis, clubbing, or pedal edema. Neuro: Alert, Oriented, Gross neurological examination did not reveal any focal deficits. Psych: well appearing, appropriate affect Assessment/Plan: The patient is a 78 year old male with PMH of multiple falls, CABG who presented to the ER after a fall and hitting his head, sustaining multiple rib fractures. He has been admitted for further evaluation and management of the same. #. Multiple Rib fracture, secondary to multiple mechanical falls Continue [place], Lidocaine patch and methocarbamol 750 mg PO QID for pain management Encourage use of incentive spirometer PT and OT recommended Home with spouse and home care with the use of rolling walker #. Constipation Continue Colace and MiraLAX Bisacodyl 10 mg once as needed added today #. Insulin-dependent diabetes mellitus A1c is 6.2 Continue Insulin sliding scale Continue Levemir 21 mg at bedtime #. History of CAD with CABG Continue Metoprolol 12.5 mg p.o. twice daily, Apixaban 5 mg p.o. twice daily, Atorvastatin 40 mg p.o. daily, Imdur 30 mg p.o. daily #. History of BPH Continue Tamsulosin 0.4 mg p.o. daily #. Anxiety Continuing Xanax 0.25 mg p.o. 3 times daily as needed #. History of asthma Continue Singulair 10 mg p.o. at bedtime F:None E:Replete as required N:Heart healthy diet A:Ambulatory DVT prophylaxis: Eliquis 5mg PO TID Objective - Vital Signs Vital signs: Vital Signs Temp 98.1 F 04/25/24 00:00 Pulse 56 L 04/25/24 00:00 Resp 13 04/25/24 00:00 BP 124/56 04/25/24 00:00 Pulse Ox 93 L 04/25/24 00:00 FiO2 Intake & Output 04/24/24 04/25/24 04/25/24 18:59 06:59 18:59 Output Total 200 600 Balance -200 -600 Weight 84.2 kg Output: Urine 200 600 Other: Voiding Method Urinal - Labs CBC & Chem 7: 04/25/24 03:13 04/25/24 03:13 Labs: Abnormal Lab Results - Last 24 Hours (Table) 04/24/24 04/24/24 04/24/24 Range/Units 12:22 17:05 21:09 POC Glucose (mg/dL) 322 H 315 H 134 H (70-110) mg/dL 04/25/24 Range/Units 07:00 POC Glucose (mg/dL) 67 L (70-110) mg/dL
[2024-04-25] MEDS: ALPRAZolam 0.25 MG TAB PO PRN (15:03)
--- NOTE | 2024-04-25 15:56 | P.PN ---
Subjective Progress Note Date: 04/25/24 SURGICAL PROGRESS NOTE CHIEF COMPLAINT: Fall HISTORY OF PRESENT ILLNESS: Patient with left-sided rib fractures. Patient does complain of pain in the rib cage. Denies any nausea or vomiting. Denies any abdominal pain. He is on room air. He is tolerating diet. Patient does have some confusion. Family at bedside noted that he still has confusion. Afebrile. WBC 7.37 Hgb 10.9 platelets 208 hemoglobin A1c 6.2 PHYSICAL EXAM: VITAL SIGNS: Reviewed. GENERAL: Well-developed in no acute distress. Chest: Equal breath sounds bilaterally ABDOMEN: Soft. Nondistended. Nontender. NEUROLOGIC: Alert and oriented. Cranial nerves II through XII grossly intact. ASSESSMENT: 1. Fall with trauma to left-sided ribs with fracture 2. Left lateral fourth, seventh and eighth rib fracture and second more anterior eighth rib fracture 3. Constipation PLAN: -Neurology consult due to altered mental status and fall and hit head -Continue pain management -Continue work with PT OT -Encourage patient to use incentive spirometer -Recommend to continue to hold Eliquis for 48 hours from admission Physician Loop Drier Operator note has been reviewed by physician. Signing provider agrees with the documented findings, assessment, and plan of care. Attestation Patient seen and examined at bedside with at bedside. Continues to complain of pain. He is sitting in chair at bedside. Pain regimen was discussed with the patient along with importance of incentive spirometry. Plan to work with physical and Occupational Therapy. Neurology was consulted based on 's concern of possible mild altered mental status. Continue to hold Eliquis. Debora Amezquita, DO Objective - Vital Signs Vital signs: Vital Signs Temp 99.0 F 04/25/24 14:02 Pulse 63 04/25/24 14:02 Resp 18 04/25/24 14:02 BP 97/56 04/25/24 14:02 Pulse Ox 92 L 04/25/24 14:02 FiO2 Intake & Output 04/24/24 04/25/24 04/25/24 18:59 06:59 18:59 Output Total 200 600 0 Balance -200 -600 0 Weight 84.2 kg Output: Urine 200 600 0 Other: Voiding Method Urinal Urinal - Labs CBC & Chem 7: 04/25/24 03:13 04/25/24 03:13 Labs: Abnormal Lab Results - Last 24 Hours (Table) 04/24/24 04/24/24 04/25/24 Range/Units 17:05 21:09 03:13 RBC (4.40-5.60) X 10*6/uL Hgb (13.0-17.0) g/dL Hct (39.6-50.0) % Est GFR (CKD-EPI) (>=60) POC Glucose (mg/dL) 315 H 134 H (70-110) mg/dL Hemoglobin A1c 6.2 H (<=6.0) % 04/25/24 04/25/24 04/25/24 Range/Units 03:13 03:13 07:00 RBC 3.44 L (4.40-5.60) X 10*6/uL Hgb 10.9 L (13.0-17.0) g/dL Hct 33.2 L (39.6-50.0) % Est GFR (CKD-EPI) 57 L (>=60) POC Glucose (mg/dL) 67 L (70-110) mg/dL Hemoglobin A1c (<=6.0) % 04/25/24 Range/Units 11:42 RBC (4.40-5.60) X 10*6/uL Hgb (13.0-17.0) g/dL Hct (39.6-50.0) % Est GFR (CKD-EPI) (>=60) POC Glucose (mg/dL) 302 H (70-110) mg/dL Hemoglobin A1c (<=6.0) %
[2024-04-25 16:44] LABS: Glucose,Whole Blood 186 mg/dL (70-110)
--- NOTE | 2024-04-25 18:00 | P.PN ---
Subjective Progress Note Date: 04/25/24 This is a 78-year-old male patient who came in to the hospital following a fall. The patient was carrying grocery and he tripped and fell and he stated that he hit his head and he landed on his left chest wall and shoulder. Noted the patient has been having frequent episodes of falls. He has been having episodes of dizziness which could be orthostatic. He is diabetic. He has an extensive history of coronary artery disease, previous bypass surgery, diabetes mellitus, chronic kidney disease, hypertension, hyperlipidemia, and previous episodes of myocardial infarction. He also has history of prostate cancer treated by radiation therapy and LHRH agonist. At this point in time, the patient is awake and alert. CAT scan of the brain showed no acute abnormalities. X-ray of the chest showed bilateral atelectatic changes and he had rib views and it was noted that the patient has fracture in the lateral fourth seventh and eighth rib. He also has chronic elevation of the right hemidiaphragm which is probably a complication of previous thoracotomy and bypass surgery. His pain is around 8 out of 10 in severity and the patient is currently on 2 L of oxygen by nasal cannula. He is receiving [place] for pain control. He was also offered an incentive spirometer. The white cell count 7.8, hemoglobin 11.1 and a platelet count of 209. CT scan of the head and cervical spine shows no acute ab normalities. Noted the patient takes anticoagulants and his current cardiac rhythm is sinus. His previous echocardiogram had shown an ejection fraction of 40 to 45% back in 2020. His carotid Doppler from 10/23/2023 showed scattered plaques in the carotid bifurcation, no significant carotid stenosis or lesions. On 04/25/2024, the patient is resting comfortably in bed and the patient is currently on room air oxygen with a pulse ox of 92%. The patient is complaining of some pain in his left lateral chest wall. He continues to use incentive spirometer. He is vitals remained essentially stable, afebrile and normotensive. The white cell count is at 7.3 with hemoglobin 10.9 and platelet count of 2 8. BUN is 25 the creatinine of 1.3 and a sodium levels at 132. Noted the creatinine is improved from 2.1-1.3. Remains on anticoagulation with Eliquis 5 mg p.o. twice a day. Rest of the medications remain unchanged. [place] 5 for pain control every 4-6 hours, as needed. Morphine for breakthrough pain. Objective - Vital Signs Vital signs: Vital Signs Temp 99.0 F 04/25/24 14:02 Pulse 63 04/25/24 14:02 Resp 18 04/25/24 14:02 BP 97/56 04/25/24 14:02 Pulse Ox 92 L 04/25/24 14:02 FiO2 Intake & Output 04/24/24 04/25/24 04/25/24 18:59 06:59 18:59 Output Total 200 600 0 Balance -200 -600 0 Weight 84.2 kg Output: Urine 200 600 0 Other: Voiding Method Urinal Urinal - Exam The patient appeared well nourished and normally developed. Vital signs as documented. The patient is currently on 2 L of oxygen by nasal cannula Head exam is unremarkable. No scleral icterus or corneal arcus noted. Neck is without jugular venous distension, thyromegaly, or carotid bruits. Carotid upstrokes are brisk bilaterally. Lungs are clear to auscultation and percussion. Diminished breath sound right lung base and the patient has a thoracotomy scar over the anterior chest area Cardiac exam reveals the PMI to be normally sized and situated. Rhythm is regular. First and second heart sounds normal. No murmurs, rubs or gallops. Abdominal exam reveals normal bowel sounds, no masses, no organomegaly and no aortic enlargement. Extremities are nonedematous and both femoral and pedal pulses are normal. Examination of the skin revealed no evidence of significant rashes, suspicious appearing nevi or other concerning lesions. Neurologically, the patient is awake and alert and the patient does not have any focal neurological deficit. Cranial nerves are essentially intact. - Labs CBC & Chem 7: 04/25/24 03:13 04/25/24 03:13 Labs: Abnormal Lab Results - Last 24 Hours (Table) 04/24/24 04/25/24 04/25/24 Range/Units 21:09 03:13 03:13 RBC 3.44 L (4.40-5.60) X 10*6/uL Hgb 10.9 L (13.0-17.0) g/dL Hct 33.2 L (39.6-50.0) % Est GFR (CKD-EPI) (>=60) POC Glucose (mg/dL) 134 H (70-110) mg/dL Hemoglobin A1c 6.2 H (<=6.0) % 04/25/24 04/25/24 04/25/24 Range/Units 03:13 07:00 11:42 RBC (4.40-5.60) X 10*6/uL Hgb (13.0-17.0) g/dL Hct (39.6-50.0) % Est GFR (CKD-EPI) 57 L (>=60) POC Glucose (mg/dL) 67 L 302 H (70-110) mg/dL Hemoglobin A1c (<=6.0) % 04/25/24 Range/Units 16:43 RBC (4.40-5.60) X 10*6/uL Hgb (13.0-17.0) g/dL Hct (39.6-50.0) % Est GFR (CKD-EPI) (>=60) POC Glucose (mg/dL) 186 H (70-110) mg/dL Hemoglobin A1c (<=6.0) % Assessment and Plan Plan: Frequent falls, rule out autonomic dysfunction, rule out orthostatic hypotension. CT scan of the head of the brain has been negative. Carotids done recently showed no significant stenosis. Cardiac rhythm is sinus. Left rib fracture, traumatic in nature involving the fourth seventh and eighth r ib on the left. No evidence of any hemothorax or pulmonary contusion. 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
[2024-04-25 21:10] LABS: Glucose,Whole Blood 361 mg/dL (70-110)
[2024-04-25] MEDS: INSULIN DETEMIR (LEVEMIR) 100 UNIT/ML SYR SQ SCH (21:34)
[2024-04-26 04:28] LABS: Glucose,Whole Blood 110 mg/dL (70-110)
[2024-04-26 06:43] LABS: Glucose,Whole Blood 137 mg/dL (70-110)
[2024-04-26] MEDS: FAMOTIDINE 20 MG TAB PO SCH (08:28)
[2024-04-26 09:33] LABS: BUN/Creat Ratio 17.35 Ratio (12.00-20.00); Blood Urea Nitrogen 29.5 mg/dL (9.0-27.0); Calcium 8.6 mg/dL (8.7-10.3); Carbon Dioxide 23.3 mmol/L (21.6-31.8); Chloride 105 mmol/L (96-109); Glucose 102 mg/dL (70-110); Potassium 4.1 mmol/L (3.5-5.5); Sodium 140 mmol/L (135-145)
[2024-04-26 09:35] LABS: HCT 33.7 % (39.6-50.0); HGB 10.6 g/dL (13.0-17.0); MCH 31.4 pg (27.0-32.0); MCHC 31.5 g/dL (32.0-37.0); MCV 99.7 FL (80.0-97.0); Mean Platelet Volume 11.7 FL (9.5-12.2); NRBC Per 100 WBC 0 X 10*3/uL (0.00-0.01); Platelet Count 232 X 10*3/uL (140-440); RBC 3.38 X 10*6/uL (4.40-5.60); WBC 7.77 X 10*3/uL (4.50-10.00)
[2024-04-26 11:40] LABS: Glucose,Whole Blood 326 mg/dL (70-110)
[2024-04-26] MEDS: KETOROLAC 15 MG/ML 1 ML VIAL IVP STA (11:58)
--- NOTE | 2024-04-26 13:01 | CT ---
EXAMINATION TYPE: CT brain wo con CT DLP: 1243.1 mGycm, Automated exposure control for dose reduction was used. DATE OF EXAM: 04/26/2024 12:48 PM COMPARISON: CT Brain and cspine facial 04/23/2024, 04/19/2024 CLINICAL INDICATION:Male, 78 years old with history of confusion, follow up head trauma, CONFUSION TECHNIQUE: Brain: Multiple axial CT images of the brain were obtained without IV contrast. . Coronal and sagitta l reformats reviewed. FINDINGS: Brain: Extra-axial spaces: No abnormal extra-axial fluid collections. Ventricular system: Within normal limits Cerebral parenchyma: No acute intraparenchymal hemorrhage or mass effect. The maharaj-white junction is well differentiated. Remote small lacunar injury within the body of the right caudate nucleus. Scatt ered hypoattenuating areas are seen within the periventricular white matter. Cerebellum: Unremarkable. Mass effect: No evidence of midline shift. Intracranial vasculature: Atherosclerotic calcifications of the intracranial vessels. Soft tissues: Normal. Calvarium/osseous structures: No depressed skull fracture. Paranasal sinuses and mastoid air cells: Clear Visualized orbits: Bilateral aphakia IMPRESSION: 1. No acute intracranial process. 2. Remote lacunar injury along with nonspecific white matter changes likely secondary to chronic micr oangiopathy. [facility], , 04/26/2024 12:58 PM
--- NOTE | 2024-04-26 13:52 | P.PN ---
Subjective Progress Note Date: 04/26/24 Principal diagnosis: Hospital course: Patient is a 78 year old male with PMH of multiple falls who presented to the ED after a fall. He mentions about a fall a couple days ago that caused him to have rib fractures. Yesterday he had another fall while coming back from the grocery store. He was carrying heavy bags in bith his hands.There are 2 steps in his garage. While trying to climb the 2nd stair he felt dizzy and like the room was spinning, lost balance and fell backwards and towards his right side, hitting his head and bruising his ear. He did not lose consciousness, but was not able to get up on his own and was lying on the ground for about 40 minutes. Currently he complains of pain in the left lateral side of the chest that is worsened with deep breathing and coughing. He has had multiple such falls due to feeling dizzy and losing balance and has had fractured ribs in the past as well. Additonally, he mentions being very forgetful lately. Denies fever,chills, headache, shortness of breath, cough, nausea, vomiting. ED documentation reviewed and case discussed with ED provider. In the ED he was treated with morphine, 0.9 normal saline and dextrose. Vitals: T 98.2F, P 66 bpm, RR 19, BP 110/55, O2 sat 98% on RA EKG: sinus rhythm, first degree AV block with NM 273 ms, poor R wave progression, rate of 63 bpm, QTc 457 ms Ribs with chest x-ray: Lateral fourth, seventh and eighth rib fractures. A second more anterior eighth rib fracture is present Chest x-ray: Bilateral lower lobe atelectasis favored over pneumonia, stable right-sided rib fractures CT head: No acute intracranial process, minimal chronic appearing periventricula r white matter ischemic changes and atrophy CT cervical spine: No acute orders abnormality of cervical spine, degenerative disc changes present C5-C6 and to a lesser degree elsewhere throughout the ce rvical spine, mild foraminal narrowing is present Shoulder x-ray: No acute osseous left shoulder abnormality Labs on presentation: Hemoglobin 7.4, PT 11.1, INR 1, potassium 5.3, BUN 41, creatinine 2.14, glucose 52 04/25/24: Patient seen and evaluated bedside today. No acute events overnight. Complains of pain on the left lateral side of the chest. Continues to use the in centive spirometer. Labs today show hemoglobin 10.9, sodium 142, potassium 4.4, A1c 6.2. 04/26/24: Patient seen and examined today. No acute events overnight. Still complains of pain on the left lateral side of the chest. Orthostatic blood pressure sitting 128/65, standing 135/65, supine 138/61. Labs today hemoglobin 10.6, BUN 29.5, creatinine 1.7. Review of systems: Pertinent positives and negatives as discussed in HPI, a complete review of systems was performed and all other systems are negative. Vitals: Signs Reviewed Physical examination: General: nontoxic, no distress, appears at stated age Derm: warm, dry, intact Head: bruise on pinna of the left ear, normocephalic, symmetric Eyes: EOMI, anicteric sclera Mouth: no lip lesion, mucus membranes moist Cardiovascular: S1 S2 reg, no murmur Lungs: CTA bilateral, no rhonchi, no rales, no accessory muscle use Abdominal: soft, tender to deep palpation in LLQ Extremities: No cyanosis, clubbing, or pedal edema. Neuro: Alert, Oriented, Gross neurological examination did not reveal any focal deficits. Psych: well appearing, appropriate affect Assessment/Plan: The patient is a 78 year old male with PMH of multiple falls, CABG who presented to the ER after a fall and hitting his head, sustaining multiple rib fractures. He has been admitted for further evaluation and management of the same. #. Multiple Rib fracture, secondary to multiple mechanical falls Orthostatic blood pressure sitting 128/65, standing 135/65, supine 138/61. Lidocaine patch and methocarbamol 750 mg PO QID for pain management [place] discontinued Added Toradol 15mg IVP once stat and Acetaminophen 650 mg PO Q6HR PRN Encourage use of incentive spirometer PT and OT recommended Home with spouse and home care with the use of rolling walker Obtain CK level #. Altered mental status H/o of multiple falls and hitting his head Patient has worsening forgetfulness Brain CT shows no acute intracranial process, remote lacunar injury along with nonspecific white matter changes likely secondary to chronic microangiopathy Neurology consulted #. Constipation Continue Colace and MiraLAX Bisacodyl 10 mg once as needed #. Insulin-dependent diabetes mellitus A1c is 6.2 Continue Insulin sliding scale Continue Levemir 21 mg at bedtime #. STEVIE on CPAP Patient advised to use CPAP machine inpatient as well Pulmnology following #. History of CAD with CABG Continue Metoprolol 12.5 mg p.o. twice daily, Atorvastatin 40 mg p.o. daily, Imdur 30 mg p.o. daily Hold Eliquis #. History of BPH Continue Tamsulosin 0.4 mg p.o. daily #. Anxiety Continuing Xanax 0.25 mg p.o. 3 times daily as needed #. History of asthma Continue Singulair 10 mg p.o. at bedtime F:0.9 normal saline at 75 ml/hr E:Replete as required N:Heart healthy diet A:Ambulatory DVT prophylaxis: Eliquis 5mg PO TID Objective - Vital Signs Vital signs: Vital Signs Temp 98.1 F 04/26/24 07:05 Pulse 68 04/26/24 07:05 Resp 18 04/26/24 07:05 BP 147/62 04/26/24 07:05 Pulse Ox 96 04/26/24 07:05 FiO2 Intake & Output 04/25/24 04/26/24 04/26/24 18:59 06:59 18:59 Output Total 0 Balance 0 Output: Urine 0 Other: Voiding Method Urinal Toilet Urinal # Voids 2 3 - Labs CBC & Chem 7: 04/26/24 04:00 04/26/24 04:00 Labs: Abnormal Lab Results - Last 24 Hours (Table) 04/25/24 04/25/24 04/25/24 Range/Units 03:13 03:13 03:13 RBC 3.44 L (4.40-5.60) X 10*6/uL Hgb 10.9 L (13.0-17.0) g/dL Hct 33.2 L (39.6-50.0) % Est GFR (CKD-EPI) 57 L (>=60) POC Glucose (mg/dL) (70-110) mg/dL Hemoglobin A1c 6.2 H (<=6.0) % 04/25/24 04/25/24 04/25/24 Range/Units 11:42 16:43 21:08 RBC (4.40-5.60) X 10*6/uL Hgb (13.0-17.0) g/dL Hct (39.6-50.0) % Est GFR (CKD-EPI) (>=60) POC Glucose (mg/dL) 302 H 186 H 361 H (70-110) mg/dL Hemoglobin A1c (<=6.0) % 04/26/24 Range/Units 06:42 RBC (4.40-5.60) X 10*6/uL Hgb (13.0-17.0) g/dL Hct (39.6-50.0) % Est GFR (CKD-EPI) (>=60) POC Glucose (mg/dL) 137 H (70-110) mg/dL Hemoglobin A1c (<=6.0) %
--- NOTE | 2024-04-26 15:36 | P.PN ---
Subjective Progress Note Date: 04/26/24 This is a 78-year-old male patient who came in to the hospital following a fall. The patient was carrying grocery and he tripped and fell and he stated that he hit his head and he landed on his left chest wall and shoulder. Noted the patient has been having frequent episodes of falls. He has been having episodes of dizziness which could be orthostatic. He is diabetic. He has an extensive history of coronary artery disease, previous bypass surgery, diabetes mellitus, chronic kidney disease, hypertension, hyperlipidemia, and previous episodes of myocardial infarction. He also has history of prostate cancer treated by radiation therapy and LHRH agonist. At this point in time, the patient is awake and alert. CAT scan of the brain showed no acute abnormalities. X-ray of the chest showed bilateral atelectatic changes and he had rib views and it was noted that the patient has fracture in the lateral fourth seventh and eighth rib. He also has chronic elevation of the right hemidiaphragm which is probably a complication of previous thoracotomy and bypass surgery. His pain is around 8 out of 10 in severity and the patient is currently on 2 L of oxygen by nasal cannula. He is receiving Wolverine for pain control. He was also offered an incentive spirometer. The white cell count 7.8, hemoglobin 11.1 and a platelet count of 209. CT scan of the head and cervical spine shows no acute ab normalities. Noted the patient takes anticoagulants and his current cardiac rhythm is sinus. His previous echocardiogram had shown an ejection fraction of 40 to 45% back in 2020. His carotid Doppler from 10/23/2023 showed scattered plaques in the carotid bifurcation, no significant carotid stenosis or lesions. On 04/25/2024, the patient is resting comfortably in bed and the patient is currently on room air oxygen with a pulse ox of 92%. The patient is complaining of some pain in his left lateral chest wall. He continues to use incentive spirometer. He is vitals remained essentially stable, afebrile and normotensive. The white cell count is at 7.3 with hemoglobin 10.9 and platelet count of 2 8. BUN is 25 the creatinine of 1.3 and a sodium levels at 132. Noted the creatinine is improved from 2.1-1.3. Remains on anticoagulation with Eliquis 5 mg p.o. twice a day. Rest of the medications remain unchanged. Wolverine 5 for pain control every 4-6 hours, as needed. Morphine for breakthrough pain. On today's evaluation of 04/26/2024, the patient has no specific complaints. The patient is currently on room air oxygen. Pain is improved and the patient had negative orthostatics. CAT scan of the brain was also done today that showed remote lacunar injury with some nonspecific white matter changes likely secondary to chronic microangiopathy. No acute intracranial process noted. L abs are stable. Blood sugar slightly elevated at 326. The rest of the labs show a white cell count of 7, hemoglobin of 10.6 and a platelet count of 232. The BUN is at 29 with a creatinine of 1.7 and sodium of is at 140. Creatinine is somewhat fluctuated as the patient's admission creatinine was 2.1, dropped down to 1.3 and currently is at 1.7. The patient remains on anticoagulation with Eliquis 5 mg p.o. twice a day. The patient is on Levemir insulin 21 units and a sliding scale coverage. The patient is on IV fluids normal saline at rate of 75 cc an hour. Receiving morphine 4 mg every 4 hours on a as needed basis and the patient has a lidocaine patch and Robaxin. Tylenol also for pain control. Objective - Vital Signs Vital signs: Vital Signs Temp 98.0 F 04/26/24 10:17 Pulse 56 L 04/26/24 08:28 Resp 18 04/26/24 08:28 BP 138/61 04/26/24 10:17 Pulse Ox 96 04/26/24 07:05 FiO2 Intake & Output 04/25/24 04/26/24 04/26/24 18:59 06:59 18:59 Output Total 0 Balance 0 Output: Urine 0 Other: Voiding Method Urinal Toilet Toilet Urinal Urinal # Voids 2 3 - Exam The patient appeared well nourished and normally developed. Vital signs as documented. The patient is currently on room air oxygen Head exam is unremarkable. No scleral icterus or corneal arcus noted. Neck is without jugular venous distension, thyromegaly, or carotid bruits. Carotid upstrokes are brisk bilaterally. Lungs are clear to auscultation and percussion. Diminished breath sound right lung base and the patient has a thoracotomy scar over the anterior chest area Cardiac exam reveals the PMI to be normally sized and situated. Rhythm is regular. First and second heart sounds normal. No murmurs, rubs or gallops. Abdominal exam reveals normal bowel sounds, no masses, no organomegaly and no aortic enlargement. Extremities are nonedematous and both femoral and pedal pulses are normal. Examination of the skin revealed no evidence of significant rashes, suspicious appearing nevi or other concerning lesions. Neurologically, the patient is awake and alert and the patient does not have any focal neurological deficit. Cranial nerves are essentially intact. - Labs CBC & Chem 7: 04/26/24 04:00 04/26/24 04:00 Labs: Abnormal Lab Results - Last 24 Hours (Table) 04/25/24 04/25/24 04/26/24 Range/Units 16:43 21:08 04:00 RBC 3.38 L (4.40-5.60) X 10*6/uL Hgb 10.6 L (13.0-17.0) g/dL Hct 33.7 L (39.6-50.0) % MCV 99.7 H (80.0-97.0) FL MCHC 31.5 L (32.0-37.0) g/dL BUN (9.0-27.0) mg/dL Creatinine (0.6-1.5) mg/dL Est GFR (CKD-EPI) (>=60) POC Glucose (mg/dL) 186 H 361 H (70-110) mg/dL Calcium (8.7-10.3) mg/dL 04/26/24 04/26/24 04/26/24 Range/Units 04:00 06:42 11:39 RBC (4.40-5.60) X 10*6/uL Hgb (13.0-17.0) g/dL Hct (39.6-50.0) % MCV (80.0-97.0) FL MCHC (32.0-37.0) g/dL BUN 29.5 H (9.0-27.0) mg/dL Creatinine 1.7 H (0.6-1.5) mg/dL Est GFR (CKD-EPI) 41 L (>=60) POC Glucose (mg/dL) 137 H 326 H (70-110) mg/dL Calcium 8.6 L (8.7-10.3) mg/dL Assessment and Plan Plan: Frequent falls, rule out autonomic dysfunction, rule out orthostatic hypotension. CT scan of the head of the brain has been negative. Carotids done recently showed no significant stenosis. Cardiac rhythm is sinus. Repeat CAT scan of the brain done today shows remote lacunar insult without any acute intracranial abnormalities. Left rib fracture, traumatic in nature involving the fourth seventh and eighth rib on the left. No evidence of any hemothorax or pulmonary contusion. 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 STEVIE and he is using the CPAP Chronic asthma Diabetes mellitus type 2 Hypertension hyperlipidemia Ischemic cardiomyopathy, with reduced left ventricular systolic function with EF of 35-40% History of CVA/TIA Prostate cancer, post radiation therapy Benign prostatic hypertrophy Anxiety/depression Plan Negative orthostatics Repeat CAT scan of the brain showed no acute intracranial process Currently on room air oxygen Tylenol for pain control and the patient is also on morphine for breakthrough pain Encourage incentive spirometer Pain control Bring the patient CPAP machine from home for inpatient use Will continue to follow
--- NOTE | 2024-04-26 15:58 | P.PN ---
Subjective Progress Note Date: 04/26/24 SURGICAL PROGRESS NOTE CHIEF COMPLAINT: Fall HISTORY OF PRESENT ILLNESS: Patient with left-sided rib fractures. Patient does complain of pain in the rib cage. Pain controlled with medication. Patient s till is confused. Patient has a bedside sitter he was trying to get up on his own during the night. Afebrile. PHYSICAL EXAM: VITAL SIGNS: Reviewed. GENERAL: Well-developed in no acute distress. HEENT left ear with bruising and mild abrasion Chest: Equal breath sounds bilaterally ABDOMEN: Soft. Nondistended. Nontender. NEUROLOGIC: Awake and alert. Confused. Patient thought the year was 2025 ASSESSMENT: 1. Fall with trauma to left-sided ribs with fracture 2. Left lateral fourth, seventh and eighth rib fracture and second more anterior eighth rib fracture 3. Confused PLAN: -Neurology consult due to altered mental status and fall and hit head -Repeat CT scan of head today -Continue pain management -Continue work with PT OT -Encourage patient to use incentive spirometer Physician Rand Tacker note has been reviewed by physician. Signing provider agrees with the documented findings, assessment, and plan of care. Objective - Vital Signs Vital signs: Vital Signs Temp 98.3 F 04/26/24 14:00 Pulse 51 L 04/26/24 14:00 Resp 18 04/26/24 14:00 BP 111/48 04/26/24 14:00 Pulse Ox 94 L 04/26/24 14:00 FiO2 Intake & Output 04/25/24 04/26/24 04/26/24 18:59 06:59 18:59 Output Total 0 Balance 0 Output: Urine 0 Other: Voiding Method Urinal Toilet Toilet Urinal Urinal # Voids 2 3 - Labs CBC & Chem 7: 04/26/24 04:00 04/26/24 04:00 Labs: Abnormal Lab Results - Last 24 Hours (Table) 04/25/24 04/25/24 04/25/24 Range/Units 03:13 16:43 21:08 RBC (4.40-5.60) X 10*6/uL Hgb (13.0-17.0) g/dL Hct (39.6-50.0) % MCV (80.0-97.0) FL MCHC (32.0-37.0) g/dL BUN (9.0-27.0) mg/dL Creatinine (0.6-1.5) mg/dL Est GFR (CKD-EPI) (>=60) POC Glucose (mg/dL) 186 H 361 H (70-110) mg/dL Calcium (8.7-10.3) mg/dL Total Creatine Kinase 233 H (30-223) u/L CK-BB (CK-1) 0.7 H (0.0) % 04/26/24 04/26/24 04/26/24 Range/Units 04:00 04:00 06:42 RBC 3.38 L (4.40-5.60) X 10*6/uL Hgb 10.6 L (13.0-17.0) g/dL Hct 33.7 L (39.6-50.0) % MCV 99.7 H (80.0-97.0) FL MCHC 31.5 L (32.0-37.0) g/dL BUN 29.5 H (9.0-27.0) mg/dL Creatinine 1.7 H (0.6-1.5) mg/dL Est GFR (CKD-EPI) 41 L (>=60) POC Glucose (mg/dL) 137 H (70-110) mg/dL Calcium 8.6 L (8.7-10.3) mg/dL Total Creatine Kinase (30-223) u/L CK-BB (CK-1) (0.0) % 04/26/24 Range/Units 11:39 RBC (4.40-5.60) X 10*6/uL Hgb (13.0-17.0) g/dL Hct (39.6-50.0) % MCV (80.0-97.0) FL MCHC (32.0-37.0) g/dL BUN (9.0-27.0) mg/dL Creatinine (0.6-1.5) mg/dL Est GFR (CKD-EPI) (>=60) POC Glucose (mg/dL) 326 H (70-110) mg/dL Calcium (8.7-10.3) mg/dL Total Creatine Kinase (30-223) u/L CK-BB (CK-1) (0.0) % Assessment and Plan Assessment: ASSESSMENT: 1. Fall with trauma to left-sided ribs with fracture 2. Left lateral fourth, seventh and eighth rib fracture and second more anterior eighth rib fracture 3. Confused PLAN: -Neurology consult due to altered mental status and fall and hit head -Repeat CT scan of head today -Continue pain management -Continue work with PT OT -Encourage patient to use incentive spirometer Time with Patient: Less than 30
[2024-04-26 16:41] LABS: Glucose,Whole Blood 231 mg/dL (70-110)
--- NOTE | 2024-04-26 19:34 | P.CNNES ---
History of Present Illness Consult date: 04/26/24 Requesting physician: Venus Hernandez Reason for Consult: ams, fall, hit head History of Present Illness: This is a 78-year-old gentleman with recurrent falls, diabetes mellitus, coronary artery disease multivessel status post CABG, multiple MIs who presented emergency department after a fall. Some of the history is obtained from the patient's is at bedside. 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 Then past Monday he was getting the grocery from car and they were heavy and as he was walking towards house, also there is two step and my have be unsteady because of heavy grocery and fell backwards and hit back of head but denies any loss of consciousness or focal weakness. Patient denies any history of stroke or seizures. Seems to the patient has about 10 falls in the last 1 year and he feels he is dizzy. He denies any lower back pain but does have after the fall has some lower back lexi n. Seems during this hospital visit about maybe 2 days ago he was confused. Also when he was being according to sitter he was pretending as if he was eating food with his hands. Because of the falls patient has pain over the right upper extremity as well as left upper extremity. It seems that he also has pain in the ribs. He does state that he has may be underlying some numbness tingling but is very mild. Again he has underlying history of diabetes Some of the work-up during this hospital visit consisted of: Orthostatic vital is negative. Pulse oxygen as low as 92% Sugar was as high as in 300s. He had 1 episode of 67. Currently is 231. HbA1c: 6.2 I reviewed rest of lab work-up. CT of the head: Is reported as no acute intracranial process. I reviewed the CT and agree with the report. Feel patient has ventriculomegaly but I feel it is due to central atrophy that is global CT cervical spine is reported as no acute osseous abnormality cervical spine. Degenerative disc changes present C5-C6 and to a lesser degree elsewhere throughout the cervical spine. Some mild foraminal narrowing is present from uncovertebral joint hypertrophy. Repeat CT head: No acute intracranial process. Remote lacunar injury along with nonspecific white matter changes likely secondary due to chronic microangiopathy. Rib x-ray is reported as lateral fourth, seventh and eighth rib fracture. A sec ond more anterior eighth rib fracture is present. Review of Systems As per HPI. Past Medical History Past Medical History: Asthma, Coronary Artery Disease (CAD), Cancer, CVA/TIA, Diabetes Mellitus, Hyperlipidemia, Hypertension, Myocardial Infarction ([place]), Prostate Disorder Additional Past Medical History / Comment(s): pos occult stool,hx SOME UPPER RIGHT CHEST PAIN. HX OF TIA, ENLARGED PROSTATE, [place] X3, Prostate CA Last Myocardial Infarction Date:: 10/01/2011 History of Any Multi-Drug Resistant Organisms: None Reported Past Surgical History: Coronary Bypass/CABG, Heart Catheterization With Stent, Hernia Repair Additional Past Surgical History / Comment(s): INGUINAL HERNIA, RT HEEL SURGERY WITH HARDWARE. BILATERAL CATARACTS.CABG-3 vessels Past Anesthesia/Blood Transfusion Reactions: No Reported Reaction Additional Past Anesthesia/Blood Transfusion Reaction / Comment(s): no hx blood transfusion Date of Last Stent Placement:: 10/01/2011 Past Psychological History: Anxiety, Depression Smoking Status: Never smoker Past Alcohol Use History: None Reported Past Drug Use History: None Reported - Past Family History Mother Family Medical History: Cancer, Diabetes Mellitus Additional Family Medical History / Comment(s): pancreas Father Family Medical History: Cancer Medications and Allergies Home Medications Medication Instructions Recorded Confirmed Type Citalopram Hydrobromide [CeleXA] 40 mg PO DAILY 03/21/14 04/24/24 History Apixaban [Eliquis] 5 mg PO BID tab 01/19/18 04/24/24 Rx Atorvastatin [Lipitor] 40 mg PO DAILY tab 01/19/18 04/24/24 Rx Insulin NPH Hum/Reg Insulin Hm 32 unit SQ HS 02/05/18 04/24/24 History [NovoLIN 70-30 100 UNIT/ML VIAL] Spironolactone [Aldactone] 25 mg PO DAILY 07/06/18 04/24/24 History ALPRAZolam [Xanax] 0.25 mg PO TID PRN 03/18/21 04/24/24 History Finasteride [Proscar] 5 mg PO DAILY 03/18/21 04/24/24 History Montelukast [Singulair] 10 mg PO HS 03/18/21 04/24/24 History metFORMIN HCL 1,000 mg PO BID 03/18/21 04/24/24 History Isosorbide Mononitrate ER [Imdur] 30 mg PO DAILY 04/21/22 04/24/24 History buPROPion HCL [buPROPion HCL Xl] 150 mg PO DAILY 04/21/22 04/24/24 History Furosemide [Lasix] 40 mg PO BID 10/11/22 04/24/24 History Insulin NPH Hum/Reg Insulin Hm 42 unit SQ DAILY 10/11/22 04/24/24 History [Novolin 70-30 100 Unit/ml Vial] Metoprolol Tartrate [Lopressor] 12.5 mg PO BID 10/11/22 04/24/24 History Tamsulosin [Flomax] 0.4 mg PO DAILY 10/11/22 04/24/24 History Docusate Sodium [Dok] 100 mg PO BID 04/24/24 04/24/24 History Dulaglutide [Trulicity] 3 mg SQ Q7D 04/24/24 04/24/24 History Fluticasone/Vilanterol [Breo 1 puff INHALATION RT-DAILY 04/24/24 04/24/24 History Ellipta 100-25 Mcg Inhalr] Losartan [Cozaar] 25 mg PO DAILY 04/24/24 04/24/24 History Meclizine [Antivert] 12.5 mg PO TID PRN 04/24/24 04/24/24 History Allergies Allergy/AdvReac Type Severity Reaction Status Date / Time No Known Allergies Allergy Verified 04/24/24 08:07 Physical Examination - Vital Signs Vital Signs: Vital Signs Temp Pulse Pulse Resp BP BP BP 04/26/24 14:00 98.3 F 51 L 18 111/48 04/26/24 10:17 98.0 F 128/65 135/65 04/26/24 08:28 56 L 68 18 04/26/24 07:05 98.1 F 68 18 147/62 04/26/24 02:00 98.1 F 67 12 135/64 04/25/24 21:30 98.5 F 71 12 117/47 BP Pulse Ox 04/26/24 14:00 94 L 04/26/24 10:17 138/61 04/26/24 08:28 04/26/24 07:05 96 04/26/24 02:00 93 L 04/25/24 21:30 95 Intake and Output 04/26/24 04/26/24 04/26/24 06:59 14:59 22:59 Other: Voiding Method Toilet Urinal # Voids 3 GENERAL: The patient is sitting in a recliner chair and is not in acute distress. LUNG: Seems short of breath. NEUROLOGICAL: Higher mental function: The patient is awake, alert, oriented to self, place and time. Minimally slow to respond. Patient is following commands. No aphasia and no neglect. Cranial nerves: The pupils are round, equal and reactive to light and accommodation. Visual encarnacion are full to confrontation throughout. Extraocular movement is intact no nystagmus is noted. Facial sensation is normal to touch throughout. The facial strength is normal throughout. Hearing is mildly decreased bilaterally to hand rub bilaterally. Tongue is midline and moved [id number] without any difficulty. No dysarthria is noted. Shoulder shrug is normal bilaterally. Motor: Gait is deferred because of his shortness of breath. The strength is limited because of pain but is lifting all extremities above gravity and appears symmetrical. Normal tone and bulk. Cerebellum: Normal finger to nose bilaterally. Sensation: Sensation is normal to touch throughout. Reflexes (right/left): Unable to assess because of pain. Plantars are mute bilaterally. Results - Laboratory Findings CBC and BMP: 04/26/24 04:00 04/26/24 04:00 Abnormal Lab Findings: Abnormal Labs 04/23/24 04/23/24 04/23/24 18:05 18:05 19:43 RBC 3.66 L Hgb 11.4 L Hct 36.0 L MCV MCHC Lymphocytes # 0.7 L Potassium 5.3 H BUN 41 H Creatinine 2.14 H Est GFR (CKD-EPI) Glucose 52 L POC Glucose (mg/dL) 128 H Hemoglobin A1c Calcium Total Creatine Kinase CK-BB (CK-1) 04/24/24 04/24/24 04/24/24 02:47 06:21 12:22 RBC 3.58 L Hgb 11.1 L Hct 35.9 L MCV 100.5 H MCHC 30.8 L Lymphocytes # 0.7 L Potassium BUN Creatinine Est GFR (CKD-EPI) Glucose POC Glucose (mg/dL) 224 H 322 H Hemoglobin A1c Calcium Total Creatine Kinase CK-BB (CK-1) 04/24/24 04/24/24 04/25/24 17:05 21:09 03:13 RBC Hgb Hct MCV MCHC Lymphocytes # Potassium BUN Creatinine Est GFR (CKD-EPI) Glucose POC Glucose (mg/dL) 315 H 134 H Hemoglobin A1c 6.2 H Calcium Total Creatine Kinase CK-BB (CK-1) 04/25/24 04/25/24 04/25/24 03:13 03:13 03:13 RBC 3.44 L Hgb 10.9 L Hct 33.2 L MCV MCHC Lymphocytes # Potassium BUN Creatinine Est GFR (CKD-EPI) 57 L Glucose POC Glucose (mg/dL) Hemoglobin A1c Calcium Total Creatine Kinase 233 H CK-BB (CK-1) 0.7 H 04/25/24 04/25/24 04/25/24 07:00 11:42 16:43 RBC Hgb Hct MCV MCHC Lymphocytes # Potassium BUN Creatinine Est GFR (CKD-EPI) Glucose POC Glucose (mg/dL) 67 L 302 H 186 H Hemoglobin A1c Calcium Total Creatine Kinase CK-BB (CK-1) 04/25/24 04/26/24 04/26/24 21:08 04:00 04:00 RBC 3.38 L Hgb 10.6 L Hct 33.7 L MCV 99.7 H MCHC 31.5 L Lymphocytes # Potassium BUN 29.5 H Creatinine 1.7 H Est GFR (CKD-EPI) 41 L Glucose POC Glucose (mg/dL) 361 H Hemoglobin A1c Calcium 8.6 L Total Creatine Kinase CK-BB (CK-1) 04/26/24 04/26/24 04/26/24 06:42 11:39 16:39 RBC Hgb Hct MCV MCHC Lymphocytes # Potassium BUN Creatinine Est GFR (CKD-EPI) Glucose POC Glucose (mg/dL) 137 H 326 H 231 H Hemoglobin A1c Calcium Total Creatine Kinase CK-BB (CK-1) Assessment and Plan Assessment: This is a 78-year-old gentleman with recurrent falls and is appears that he had 2 falls in the last 1 week and currently he is having episode of confusion. Recurrent falls of unknown etiology. Unsure if due to multifactorial of hypoxia, and rule out autonomic dysfunction from his diabetes, possible peripheral neuropathy as well as due to his ischemic cardiomyopathy. Delirium likely due to hospital induced as well as some metabolic encephalopathy. Had 2 CT of the head which were negative for any acute or sub acute process. Diabetes mellitus Likely mild neuropathy Hypoxia as low as 92%L and was short of breath with short walk from bathroom Rib Fracture due to the fall Blood sugar as high as 300s History of diabetes mellitus History of asthma Underlying history of hypertension Hyperlipidemia History of coronary artery disease involving multivessel status post CABG History of myocardial infarction History of prostate cancer. Plan: I ordered MRI of the brain, MRI of the lumbar spine Ordered routine EEG Ordered TSH, ammonia level, vitamin B12 folate Recommend better control of the sugar. Fall precaution Patient is on home medication of Eliquis. Defer rest of the medical management to primary other specialist The plan is discussed with patient and his who is at bedside. Thank you for the consultation. Time with Patient: Greater than 30
[2024-04-26 20:27] LABS: Glucose,Whole Blood 311 mg/dL (70-110)
[2024-04-26] MEDS: SODIUM CHLORIDE 0.9% 1,000 ML IV SCH (21:10)
[2024-04-27 06:44] LABS: Glucose,Whole Blood 130 mg/dL (70-110)
[2024-04-27 10:21] LABS: HCT 32.6 % (39.6-50.0); HGB 10.4 g/dL (13.0-17.0); MCH 31.5 pg (27.0-32.0); MCHC 31.9 g/dL (32.0-37.0); MCV 98.8 FL (80.0-97.0); Mean Platelet Volume 11.6 FL (9.5-12.2); Platelet Count 225 X 10*3/uL (140-440); RDW 11.9 % (11.5-14.5); WBC 7.29 X 10*3/uL (4.50-10.00)
[2024-04-27 10:22] LABS: NRBC Per 100 WBC 0 X 10*3/uL (0.00-0.01)
[2024-04-27 11:27] LABS: BUN/Creat Ratio 21.15 Ratio (12.00-20.00); Blood Urea Nitrogen 27.5 mg/dL (9.0-27.0); Calcium 8.5 mg/dL (8.7-10.3); Carbon Dioxide 21.9 mmol/L (21.6-31.8); Chloride 108 mmol/L (96-109); Glucose 77 mg/dL (70-110); Potassium 4.1 mmol/L (3.5-5.5); Sodium 142 mmol/L (135-145)
[2024-04-27 11:45] LABS: Glucose,Whole Blood 354 mg/dL (70-110)
--- NOTE | 2024-04-27 14:33 | P.PN ---
Subjective Progress Note Date: 04/27/24 Principal diagnosis: Hospital course: Patient is a 78 year old male with PMH of multiple falls who presented to the ED after a fall. He mentions about a fall a couple days ago that caused him to have rib fractures. Yesterday he had another fall while coming back from the grocery store. He was carrying heavy bags in bith his hands.There are 2 steps in his garage. While trying to climb the 2nd stair he felt dizzy and like the room was spinning, lost balance and fell backwards and towards his right side, hitting his head and bruising his ear. He did not lose consciousness, but was not able to get up on his own and was lying on the ground for about 40 minutes. Currently he complains of pain in the left lateral side of the chest that is worsened with deep breathing and coughing. He has had multiple such falls due to feeling dizzy and losing balance and has had fractured ribs in the past as well. Additonally, he mentions being very forgetful lately. Denies fever,chills, headache, shortness of breath, cough, nausea, vomiting. ED documentation reviewed and case discussed with ED provider. In the ED he was treated with morphine, 0.9 normal saline and dextrose. Vitals: T 98.2F, P 66 bpm, RR 19, BP 110/55, O2 sat 98% on RA EKG: sinus rhythm, first degree AV block with GA 273 ms, poor R wave progression, rate of 63 bpm, QTc 457 ms Ribs with chest x-ray: Lateral fourth, seventh and eighth rib fractures. A second more anterior eighth rib fracture is present Chest x-ray: Bilateral lower lobe atelectasis favored over pneumonia, stable right-sided rib fractures CT head: No acute intracranial process, minimal chronic appearing periventricula r white matter ischemic changes and atrophy CT cervical spine: No acute orders abnormality of cervical spine, degenerative disc changes present C5-C6 and to a lesser degree elsewhere throughout the ce rvical spine, mild foraminal narrowing is present Shoulder x-ray: No acute osseous left shoulder abnormality Labs on presentation: Hemoglobin 7.4, PT 11.1, INR 1, potassium 5.3, BUN 41, creatinine 2.14, glucose 52 04/25/24: Patient seen and evaluated bedside today. No acute events overnight. Complains of pain on the left lateral side of the chest. Continues to use the in centive spirometer. Labs today show hemoglobin 10.9, sodium 142, potassium 4.4, A1c 6.2. 04/26/24: Patient seen and examined today. No acute events overnight. Still complains of pain on the left lateral side of the chest. Orthostatic blood pressure sitting 128/65, standing 135/65, supine 138/61. Labs today hemoglobin 10.6, BUN 29.5, creatinine 1.7. 04/27/24: Patient seen and evaluated today. No acute events overnight. Complains of pain on the left lateral side of the chest and in the lower back. Labs today show Folate 14.60, Ammonia <9, TSH 1.7 BUN 27.5, creatinine 1.3, hemoglobin 10.4, hematocrit 32.6. Review of systems: Pertinent positives and negatives as discussed in HPI, a complete review of systems was performed and all other systems are negative. Vitals: Signs Reviewed Physical examination: General: nontoxic, no distress, appears at stated age Derm: warm, dry, intact Head: bruise on pinna of the left ear, normocephalic, symmetric Eyes: EOMI, anicteric sclera Mouth: no lip lesion, mucus membranes moist Cardiovascular: S1 S2 reg, no murmur Lungs: CTA bilateral, no rhonchi, no rales, no accessory muscle use Abdominal: soft, tender to deep palpation in LLQ Extremities: No cyanosis, clubbing, or pedal edema. Neuro: Alert, Oriented, Gross neurological examination did not reveal any focal deficits. Psych: well appearing, appropriate affectt Assessment/Plan: The patient is a 78 year old male with PMH of multiple falls, CABG who presented to the ER with altered mental status after a fall, sustaining multiple rib fractures. He has been admitted for further work up of multiple falls and altered mental status. #. Multiple Rib fracture, secondary to multiple mechanical falls Negative orthostatics, r/o orthostatic hypotension Continue Acetaminophen 650 mg PO Q6HR PRN, Lidocaine patch and methocarbamol 750 mg PO QID for pain management Encourage use of incentive spirometer PT and OT recommended Home with spouse and home care with the use of rolling walker Obtain CK level #. Altered mental status H/o of multiple falls and hitting his head Patient has worsening forgetfulness Brain CT shows no acute intracranial process, remote lacunar injury along with nonspecific white matter changes likely secondary to chronic microangiopathy Folate 14.60, Ammonia <9, TSH 1.7 MRI of the brain, MRI of the lumbar spine and EEG ordered Vitamin B12 ordered Fall precautions Neurology consulted #. Constipation Continue Colace and MiraLAX Bisacodyl 10 mg once as needed #. Insulin-dependent diabetes mellitus A1c is 6.2 Continue Insulin sliding scale Continue Levemir 21 mg at bedtime #. STEVIE on CPAP Patient advised to use CPAP machine inpatient as well Pulmnology following #. History of CAD with CABG Continue Metoprolol 12.5 mg p.o. twice daily, Atorvastatin 40 mg p.o. daily, Imdur 30 mg p.o. daily Hold Eliquis #. History of BPH Continue Tamsulosin 0.4 mg p.o. daily #. Anxiety Continuing Xanax 0.25 mg p.o. 3 times daily as needed #. History of asthma Continue Singulair 10 mg p.o. at bedtime F:0.9 normal saline at 75 ml/hr E:Replete as required N:Heart healthy diet A:Ambulatory DVT prophylaxis: Eliquis 5mg PO TID Attestation: I have personally seen and examined the patient with Resident, reviewed the documentation and participated and agree with the assessment and plan as written. Moises Ram MD Objective - Vital Signs Vital signs: Vital Signs Temp 98.4 F 04/27/24 07:01 Pulse 68 04/27/24 07:01 Resp 18 04/27/24 07:01 BP 133/65 04/27/24 07:01 Pulse Ox 93 L 04/27/24 07:01 FiO2 Intake & Output 04/26/24 04/27/24 04/27/24 18:59 06:59 18:59 Other: Voiding Method Toilet Toilet Urinal Urinal # Voids 3 - Labs CBC & Chem 7: 04/28/24 08:22 04/28/24 08:22 Labs: Abnormal Lab Results - Last 24 Hours (Table) 04/25/24 04/26/24 04/26/24 Range/Units 03:13 04:00 04:00 RBC 3.38 L (4.40-5.60) X 10*6/uL Hgb 10.6 L (13.0-17.0) g/dL Hct 33.7 L (39.6-50.0) % MCV 99.7 H (80.0-97.0) FL MCHC 31.5 L (32.0-37.0) g/dL BUN 29.5 H (9.0-27.0) mg/dL Creatinine 1.7 H (0.6-1.5) mg/dL Est GFR (CKD-EPI) 41 L (>=60) POC Glucose (mg/dL) (70-110) mg/dL Calcium 8.6 L (8.7-10.3) mg/dL Total Creatine Kinase 233 H (30-223) u/L CK-BB (CK-1) 0.7 H (0.0) % 04/26/24 04/26/24 04/26/24 Range/Units 11:39 16:39 20:25 RBC (4.40-5.60) X 10*6/uL Hgb (13.0-17.0) g/dL Hct (39.6-50.0) % MCV (80.0-97.0) FL MCHC (32.0-37.0) g/dL BUN (9.0-27.0) mg/dL Creatinine (0.6-1.5) mg/dL Est GFR (CKD-EPI) (>=60) POC Glucose (mg/dL) 326 H 231 H 311 H (70-110) mg/dL Calcium (8.7-10.3) mg/dL Total Creatine Kinase (30-223) u/L CK-BB (CK-1) (0.0) % 04/27/24 Range/Units 06:42 RBC (4.40-5.60) X 10*6/uL Hgb (13.0-17.0) g/dL Hct (39.6-50.0) % MCV (80.0-97.0) FL MCHC (32.0-37.0) g/dL BUN (9.0-27.0) mg/dL Creatinine (0.6-1.5) mg/dL Est GFR (CKD-EPI) (>=60) POC Glucose (mg/dL) 130 H (70-110) mg/dL Calcium (8.7-10.3) mg/dL Total Creatine Kinase (30-223) u/L CK-BB (CK-1) (0.0) %
--- NOTE | 2024-04-27 15:20 | P.PN ---
Subjective Progress Note Date: 04/27/24 This is a 78-year-old male patient who came in to the hospital following a fall. The patient was carrying grocery and he tripped and fell and he stated that he hit his head and he landed on his left chest wall and shoulder. Noted the patient has been having frequent episodes of falls. He has been having episodes of dizziness which could be orthostatic. He is diabetic. He has an extensive history of coronary artery disease, previous bypass surgery, diabetes mellitus, chronic kidney disease, hypertension, hyperlipidemia, and previous episodes of myocardial infarction. He also has history of prostate cancer treated by radiation therapy and LHRH agonist. At this point in time, the patient is awake and alert. CAT scan of the brain showed no acute abnormalities. X-ray of the chest showed bilateral atelectatic changes and he had rib views and it was noted that the patient has fracture in the lateral fourth seventh and eighth rib. He also has chronic elevation of the right hemidiaphragm which is probably a complication of previous thoracotomy and bypass surgery. His pain is around 8 out of 10 in severity and the patient is currently on 2 L of oxygen by nasal cannula. He is receiving [place] for pain control. He was also offered an incentive spirometer. The white cell count 7.8, hemoglobin 11.1 and a platelet count of 209. CT scan of the head and cervical spine shows no acute ab normalities. Noted the patient takes anticoagulants and his current cardiac rhythm is sinus. His previous echocardiogram had shown an ejection fraction of 40 to 45% back in 2020. His carotid Doppler from 10/23/2023 showed scattered plaques in the carotid bifurcation, no significant carotid stenosis or lesions. On 04/25/2024, the patient is resting comfortably in bed and the patient is currently on room air oxygen with a pulse ox of 92%. The patient is complaining of some pain in his left lateral chest wall. He continues to use incentive spirometer. He is vitals remained essentially stable, afebrile and normotensive. The white cell count is at 7.3 with hemoglobin 10.9 and platelet count of 2 8. BUN is 25 the creatinine of 1.3 and a sodium levels at 132. Noted the creatinine is improved from 2.1-1.3. Remains on anticoagulation with Eliquis 5 mg p.o. twice a day. Rest of the medications remain unchanged. [place] 5 for pain control every 4-6 hours, as needed. Morphine for breakthrough pain. On today's evaluation of 04/26/2024, the patient has no specific complaints. The patient is currently on room air oxygen. Pain is improved and the patient had negative orthostatics. CAT scan of the brain was also done today that showed remote lacunar injury with some nonspecific white matter changes likely secondary to chronic microangiopathy. No acute intracranial process noted. L abs are stable. Blood sugar slightly elevated at 326. The rest of the labs show a white cell count of 7, hemoglobin of 10.6 and a platelet count of 232. The BUN is at 29 with a creatinine of 1.7 and sodium of is at 140. Creatinine is somewhat fluctuated as the patient's admission creatinine was 2.1, dropped down to 1.3 and currently is at 1.7. The patient remains on anticoagulation with Eliquis 5 mg p.o. twice a day. The patient is on Levemir insulin 21 units and a sliding scale coverage. The patient is on IV fluids normal saline at rate of 75 cc an hour. Receiving morphine 4 mg every 4 hours on a as needed basis and the patient has a lidocaine patch and Robaxin. Tylenol also for pain control. 04/27/2024, the patient is being seen for a follow-up. The patient is doing well. No specific complaints. The patient remains on room air oxygen. Neurology evaluated the patient and further workup was ordered including MRI of the brain and the spine. WBC was 7.2, hemoglobin 10.4 and a platelet count of 225. BUN is 27 with a creatinine 1.3 and a sodium levels at 142. Potassium le ramo is at 4.1. No other significant events overnight. Objective - Vital Signs Vital signs: Vital Signs Temp 98.4 F 04/27/24 07:01 Pulse 68 04/27/24 07:01 Resp 18 04/27/24 07:01 BP 133/65 04/27/24 07:01 Pulse Ox 93 L 04/27/24 07:01 FiO2 Intake & Output 04/26/24 04/27/24 04/27/24 18:59 06:59 18:59 Other: Voiding Method Toilet Toilet Urinal Urinal # Voids 3 - Exam The patient appeared well nourished and normally developed. Vital signs as documented. The patient is currently on room air oxygen Head exam is unremarkable. No scleral icterus or corneal arcus noted. Neck is without jugular venous distension, thyromegaly, or carotid bruits. Carotid upstrokes are brisk bilaterally. Lungs are clear to auscultation and percussion. Diminished breath sound right lung base and the patient has a thoracotomy scar over the anterior chest area Cardiac exam reveals the PMI to be normally sized and situated. Rhythm is regular. First and second heart sounds normal. No murmurs, rubs or gallops. Abdominal exam reveals normal bowel sounds, no masses, no organomegaly and no aortic enlargement. Extremities are nonedematous and both femoral and pedal pulses are normal. Examination of the skin revealed no evidence of significant rashes, suspicious appearing nevi or other concerning lesions. Neurologically, the patient is awake and alert and the patient does not have any focal neurological deficit. Cranial nerves are essentially intact. - Labs CBC & Chem 7: 04/27/24 03:48 04/27/24 03:54 Labs: Abnormal Lab Results - Last 24 Hours (Table) 04/25/24 04/26/24 04/26/24 Range/Units 03:13 16:39 20:25 RBC (4.40-5.60) X 10*6/uL Hgb (13.0-17.0) g/dL Hct (39.6-50.0) % MCV (80.0-97.0) FL MCHC (32.0-37.0) g/dL Anion Gap (4.00-12.00) mmol/L BUN (9.0-27.0) mg/dL Est GFR (CKD-EPI) (>=60) BUN/Creatinine Ratio (12.00-20.00) Ratio POC Glucose (mg/dL) 231 H 311 H (70-110) mg/dL Calcium (8.7-10.3) mg/dL Total Creatine Kinase 233 H (30-223) u/L CK-BB (CK-1) 0.7 H (0.0) % 04/27/24 04/27/24 04/27/24 Range/Units 03:48 03:54 06:42 RBC 3.30 L (4.40-5.60) X 10*6/uL Hgb 10.4 L (13.0-17.0) g/dL Hct 32.6 L (39.6-50.0) % MCV 98.8 H (80.0-97.0) FL MCHC 31.9 L (32.0-37.0) g/dL Anion Gap 12.10 H (4.00-12.00) mmol/L BUN 27.5 H (9.0-27.0) mg/dL Est GFR (CKD-EPI) 57 L (>=60) BUN/Creatinine Ratio 21.15 H (12.00-20.00) Ratio POC Glucose (mg/dL) 130 H (70-110) mg/dL Calcium 8.5 L (8.7-10.3) mg/dL Total Creatine Kinase (30-223) u/L CK-BB (CK-1) (0.0) % 04/27/24 Range/Units 11:44 RBC (4.40-5.60) X 10*6/uL Hgb (13.0-17.0) g/dL Hct (39.6-50.0) % MCV (80.0-97.0) FL MCHC (32.0-37.0) g/dL Anion Gap (4.00-12.00) mmol/L BUN (9.0-27.0) mg/dL Est GFR (CKD-EPI) (>=60) BUN/Creatinine Ratio (12.00-20.00) Ratio POC Glucose (mg/dL) 354 H (70-110) mg/dL Calcium (8.7-10.3) mg/dL Total Creatine Kinase (30-223) u/L CK-BB (CK-1) (0.0) % Assessment and Plan Plan: Frequent falls, rule out autonomic dysfunction, rule out orthostatic hypotension. CT scan of the head of the brain has been negative. Carotids done recently showed no significant stenosis. Cardiac rhythm is sinus. Repeat CAT scan of the brain done today shows remote lacunar insult without any acute intracranial abnormalities. Left rib fracture, traumatic in nature involving the fourth seventh and eighth rib on the left. No evidence of any hemothorax or pulmonary contusion. 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 STEVIE and he is using the CPAP Chronic asthma Diabetes mellitus type 2 Hypertension hyperlipidemia Ischemic cardiomyopathy, with reduced left ventricular systolic function with EF of 35-40% History of CVA/TIA Prostate cancer, post radiation therapy Benign prostatic hypertrophy Anxiety/depression Plan Negative orthostatics Repeat CAT scan of the brain showed no acute intracranial process MRI of the brain and the spine per neurology Currently on room air oxygen Tylenol for pain control and the patient is also on morphine for breakthrough pain Encourage incentive spirometer Pain control Bring the patient CPAP machine from home for inpatient use Will continue to follow
[2024-04-27 16:50] LABS: Glucose,Whole Blood 95 mg/dL (70-110)
--- NOTE | 2024-04-27 18:52 | P.PN ---
Subjective Pt seen and evaluated at bedside. Patient doing well, having bowel movements. Objective - Vital Signs Vital signs: Vital Signs Temp 98.4 F 04/27/24 07:01 Pulse 60 04/27/24 13:57 Resp 17 04/27/24 13:57 BP 127/53 04/27/24 13:57 Pulse Ox 96 04/27/24 13:57 FiO2 Intake & Output 04/26/24 04/27/24 04/27/24 18:59 06:59 18:59 Other: Voiding Method Toilet Toilet Toilet Urinal Urinal Urinal # Voids 3 2 # Bowel Movements 2 - Exam gen: nad cv: rrr pul: non labored breathing abd: soft, non tender to palpation, no guarding or rebound tenderness - Labs CBC & Chem 7: 04/27/24 03:48 04/27/24 03:54 Labs: Abnormal Lab Results - Last 24 Hours (Table) 04/26/24 04/27/24 04/27/24 Range/Units 20:25 03:48 03:54 RBC 3.30 L (4.40-5.60) X 10*6/uL Hgb 10.4 L (13.0-17.0) g/dL Hct 32.6 L (39.6-50.0) % MCV 98.8 H (80.0-97.0) FL MCHC 31.9 L (32.0-37.0) g/dL Anion Gap 12.10 H (4.00-12.00) mmol/L BUN 27.5 H (9.0-27.0) mg/dL Est GFR (CKD-EPI) 57 L (>=60) BUN/Creatinine Ratio 21.15 H (12.00-20.00) Ratio POC Glucose (mg/dL) 311 H (70-110) mg/dL Calcium 8.5 L (8.7-10.3) mg/dL 04/27/24 04/27/24 Range/Units 06:42 11:44 RBC (4.40-5.60) X 10*6/uL Hgb (13.0-17.0) g/dL Hct (39.6-50.0) % MCV (80.0-97.0) FL MCHC (32.0-37.0) g/dL Anion Gap (4.00-12.00) mmol/L BUN (9.0-27.0) mg/dL Est GFR (CKD-EPI) (>=60) BUN/Creatinine Ratio (12.00-20.00) Ratio POC Glucose (mg/dL) 130 H 354 H (70-110) mg/dL Calcium (8.7-10.3) mg/dL Assessment and Plan Assessment: 1. Fall with trauma to left-sided ribs with fracture 2. Left lateral fourth, seventh and eighth rib fracture and second more anterior eighth rib fracture 3. Confused PLAN: -Neurology recommending MRI/EEG -Repeat CT scan of head demonstrates no acute bleed -Continue pain management -Continue work with PT OT -Encourage patient to use incentive spirometer Time with Patient: Less than 30
[2024-04-27] MEDS: ACETAMINOPHEN TAB 325 MG TAB PO PRN (20:01)
[2024-04-27 21:03] LABS: Glucose,Whole Blood 167 mg/dL (70-110)
[2024-04-28 06:41] LABS: Glucose,Whole Blood 235 mg/dL (70-110)
[2024-04-28 09:15] LABS: African American GFR (CKD) 71 (>60 ml/min/1.73 sqM); Anion Gap 4 mmol/L; Blood Urea Nitrogen 23 mg/dL (9-20); Calcium 8.8 mg/dL (8.4-10.2); Carbon Dioxide 28 mmol/L (22-30); Chloride 109 mmol/L (98-107); Glucose 179 mg/dL (74-99); Non-African American GFR(CKD) 61 (>60 ml/min/1.73 sqM); Potassium 4.2 mmol/L (3.5-5.1); Sodium 141 mmol/L (137-145)
[2024-04-28 09:23] LABS: HCT 34.4 % (39.0-53.0); HGB 10.9 gm/dL (13.0-17.5); Hypochromasia Slight; MCH 31.4 pg (25.0-35.0); MCHC 31.7 g/dL (31.0-37.0); MCV 99.1 fL (80.0-100.0); Mean Platelet Volume 8.4; Platelet Count 233 k/uL (150-450); RBC 3.47 m/uL (4.30-5.90); WBC 5.4 k/uL (3.8-10.6)
--- NOTE | 2024-04-28 10:59 | XR ---
EXAMINATION TYPE: XR chest 1V portable DATE OF EXAM: 04/28/2024 COMPARISON: 04/24/2024 HISTORY: Chest pain TECHNIQUE: Single frontal view of the chest is obtained. FINDINGS: There is a prior CABG surgery. There is minimal interstitial prominence in the left lung base likely indicating chronic interstitial change or mild atelectasis. There is no pneumothorax. There is no pulmonary vascular congestion. The heart size is within normal limits for the technique. There are multiple healed right rib fractures. IMPRESSION: Mild interstitial scarring or atelectasis in the left lung base. No significant interval change rufus red to previous. IMPRESSION: No acute process. [facility], Workstation: [facility], 04/28/2024 10:57 AM
[2024-04-28 12:04] LABS: Glucose,Whole Blood 334 mg/dL (70-110)
--- NOTE | 2024-04-28 12:58 | P.PN ---
Subjective Progress Note Date: 04/28/24 This is a 78-year-old male patient who came in to the hospital following a fall. The patient was carrying grocery and he tripped and fell and he stated that he hit his head and he landed on his left chest wall and shoulder. Noted the patient has been having frequent episodes of falls. He has been having episodes of dizziness which could be orthostatic. He is diabetic. He has an extensive history of coronary artery disease, previous bypass surgery, diabetes mellitus, chronic kidney disease, hypertension, hyperlipidemia, and previous episodes of myocardial infarction. He also has history of prostate cancer treated by radiation therapy and LHRH agonist. At this point in time, the patient is awake and alert. CAT scan of the brain showed no acute abnormalities. X-ray of the chest showed bilateral atelectatic changes and he had rib views and it was noted that the patient has fracture in the lateral fourth seventh and eighth rib. He also has chronic elevation of the right hemidiaphragm which is probably a complication of previous thoracotomy and bypass surgery. His pain is around 8 out of 10 in severity and the patient is currently on 2 L of oxygen by nasal cannula. He is receiving [place] for pain control. He was also offered an incentive spirometer. The white cell count 7.8, hemoglobin 11.1 and a platelet count of 209. CT scan of the head and cervical spine shows no acute ab normalities. Noted the patient takes anticoagulants and his current cardiac rhythm is sinus. His previous echocardiogram had shown an ejection fraction of 40 to 45% back in 2020. His carotid Doppler from 10/23/2023 showed scattered plaques in the carotid bifurcation, no significant carotid stenosis or lesions. On 04/25/2024, the patient is resting comfortably in bed and the patient is currently on room air oxygen with a pulse ox of 92%. The patient is complaining of some pain in his left lateral chest wall. He continues to use incentive spirometer. He is vitals remained essentially stable, afebrile and normotensive. The white cell count is at 7.3 with hemoglobin 10.9 and platelet count of 2 8. BUN is 25 the creatinine of 1.3 and a sodium levels at 132. Noted the creatinine is improved from 2.1-1.3. Remains on anticoagulation with Eliquis 5 mg p.o. twice a day. Rest of the medications remain unchanged. [place] 5 for pain control every 4-6 hours, as needed. Morphine for breakthrough pain. On today's evaluation of 04/26/2024, the patient has no specific complaints. The patient is currently on room air oxygen. Pain is improved and the patient had negative orthostatics. CAT scan of the brain was also done today that showed remote lacunar injury with some nonspecific white matter changes likely secondary to chronic microangiopathy. No acute intracranial process noted. L abs are stable. Blood sugar slightly elevated at 326. The rest of the labs show a white cell count of 7, hemoglobin of 10.6 and a platelet count of 232. The BUN is at 29 with a creatinine of 1.7 and sodium of is at 140. Creatinine is somewhat fluctuated as the patient's admission creatinine was 2.1, dropped down to 1.3 and currently is at 1.7. The patient remains on anticoagulation with Eliquis 5 mg p.o. twice a day. The patient is on Levemir insulin 21 units and a sliding scale coverage. The patient is on IV fluids normal saline at rate of 75 cc an hour. Receiving morphine 4 mg every 4 hours on a as needed basis and the patient has a lidocaine patch and Robaxin. Tylenol also for pain control. 04/27/2024, the patient is being seen for a follow-up. The patient is doing well. No specific complaints. The patient remains on room air oxygen. Neurology evaluated the patient and further workup was ordered including MRI of the brain and the spine. WBC was 7.2, hemoglobin 10.4 and a platelet count of 225. BUN is 27 with a creatinine 1.3 and a sodium levels at 142. Potassium le ramo is at 4.1. No other significant events overnight. On 04/28/2024, the patient is being seen for a follow-up. The patient continues to have scattered left-sided chest wall pain which is essentially traumatic in nature. Based on that, I repeated the chest x-ray today and it shows no acute cardiopulmonary abnormalities. The patient had a traumatic fall resulting into skeletal left-sided chest wall pain. The patient had also sustained rib fractures involving the fourth 8 and the seventh rib on the left. No evidence of pneumothorax. No evidence of any pulmonary contusion. Neurology on the case regarding his recurrent falls. Negative orthostatics. Consider autonomic dysfunction/neuropathy contributing to his frequent falls. Objective - Vital Signs Vital signs: Vital Signs Temp 98.0 F 04/28/24 07:59 Pulse 61 04/28/24 07:59 Resp 18 04/28/24 07:59 BP 141/59 04/28/24 07:59 Pulse Ox 90 L 04/28/24 07:59 FiO2 Intake & Output 04/27/24 04/28/24 04/28/24 18:59 06:59 18:59 Output Total 400 Balance -400 Output: Urine 400 Other: Voiding Method Toilet Toilet Urinal Urinal # Voids 2 2 # Bowel Movements 2 - Exam The patient appeared well nourished and normally developed. Vital signs as documented. The patient is currently on room air oxygen Head exam is unremarkable. No scleral icterus or corneal arcus noted. Neck is without jugular venous distension, thyromegaly, or carotid bruits. Carotid upstrokes are brisk bilaterally. Lungs are clear to auscultation and percussion. Diminished breath sound right lung base and the patient has a thoracotomy scar over the anterior chest area Cardiac exam reveals the PMI to be normally sized and situated. Rhythm is regular. First and second heart sounds normal. No murmurs, rubs or gallops. Abdominal exam reveals normal bowel sounds, no masses, no organomegaly and no aortic enlargement. Extremities are nonedematous and both femoral and pedal pulses are normal. Examination of the skin revealed no evidence of significant rashes, suspicious appearing nevi or other concerning lesions. Neurologically, the patient is awake and alert and the patient does not have any focal neurological deficit. Cranial nerves are essentially intact. - Labs CBC & Chem 7: 04/28/24 08:22 04/28/24 08:22 Labs: Abnormal Lab Results - Last 24 Hours (Table) 04/27/24 04/27/24 04/27/24 Range/Units 03:48 03:54 11:44 RBC 3.30 L (4.40-5.60) X 10*6/uL Hgb 10.4 L (13.0-17.0) g/dL Hct 32.6 L (39.6-50.0) % MCV 98.8 H (80.0-97.0) FL MCHC 31.9 L (32.0-37.0) g/dL [place] (98-107) mmol/L Anion Gap 12.10 H (4.00-12.00) mmol/L BUN 27.5 H (9.0-27.0) mg/dL Est GFR (CKD-EPI) 57 L (>=60) BUN/Creatinine Ratio 21.15 H (12.00-20.00) Ratio Glucose (74-99) mg/dL POC Glucose (mg/dL) 354 H (70-110) mg/dL Calcium 8.5 L (8.7-10.3) mg/dL 04/27/24 04/28/24 04/28/24 Range/Units 21:02 06:40 08:22 RBC 3.47 L (4.40-5.60) X 10*6/uL Hgb 10.9 L (13.0-17.0) g/dL Hct 34.4 L (39.6-50.0) % MCV (80.0-97.0) FL MCHC (32.0-37.0) g/dL [place] (98-107) mmol/L Anion Gap (4.00-12.00) mmol/L BUN (9.0-27.0) mg/dL Est GFR (CKD-EPI) (>=60) BUN/Creatinine Ratio (12.00-20.00) Ratio Glucose (74-99) mg/dL POC Glucose (mg/dL) 167 H 235 H (70-110) mg/dL Calcium (8.7-10.3) mg/dL 04/28/24 Range/Units 08:22 RBC (4.40-5.60) X 10*6/uL Hgb (13.0-17.0) g/dL Hct (39.6-50.0) % MCV (80.0-97.0) FL MCHC (32.0-37.0) g/dL [place] 109 H (98-107) mmol/L Anion Gap (4.00-12.00) mmol/L BUN 23 H (9.0-27.0) mg/dL Est GFR (CKD-EPI) (>=60) BUN/Creatinine Ratio (12.00-20.00) Ratio Glucose 179 H (74-99) mg/dL POC Glucose (mg/dL) (70-110) mg/dL Calcium (8.7-10.3) mg/dL Assessment and Plan Plan: Frequent falls, rule out autonomic dysfunction, rule out orthostatic hypotension. CT scan of the head of the brain has been negative. Carotids done recently showed no significant stenosis. Cardiac rhythm is sinus. Repeat CAT scan of the brain done today shows remote lacunar insult without any acute intracranial abnormalities. Consider autonomic dysfunction/neuropathy contributing to his frequent falls Left rib fracture, traumatic in nature involving the fourth seventh and eighth rib on the left. No evidence of any hemothorax or pulmonary contusion. 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 STEVIE and he is using the CPAP Chronic asthma Diabetes mellitus type 2 Hypertension hyperlipidemia Ischemic cardiomyopathy, with reduced left ventricular systolic function with EF of 35-40% History of CVA/TIA Prostate cancer, post radiation therapy Benign prostatic hypertrophy Anxiety/depression Plan Repeat chest x-ray from today shows no acute abnormalities Negative orthostatics Repeat CAT scan of the brain showed no acute intracranial process MRI of the brain and the spine per neurology Currently on room air oxygen Tylenol for pain control and the patient is also on morphine for breakthrough pain Encourage incentive spirometer Pain control Bring the patient CPAP machine from home for inpatient use Will continue to follow
[2024-04-28 13:46] LABS: Appearance,Urine Clear (Clear); Bilirubin,Urine Negative (Negative); Blood,Urine Negative (Negative); Color,Urine Colorless; Glucose,Urine (UA) 4+ (Negative); Ketones,Urine Trace (Negative); Leukocyte Esterase,Urine Negative (Negative); Nitrite,Urine Negative (Negative); Protein,Urine Negative (Negative); Specific Gravity,Urine 1.019 (1.001-1.035); Urobilinogen,Urine <2.0 mg/dL (<2.0)
--- NOTE | 2024-04-28 14:11 | P.PN ---
Subjective Progress Note Date: 04/28/24 Interval History: Patient is a 78 year old male with PMH of multiple falls who presented to the ED after a fall. He mentions about a fall a couple days ago that caused him to have rib fractures. Yesterday he had another fall while coming back from the grocery store. He was carrying heavy bags in bith his hands.There are 2 steps in his garage. While trying to climb the 2nd stair he felt dizzy and like the room was spinning, lost balance and fell backwards and towards his right side, hitting his head and bruising his ear. He did not lose consciousness, but was not able to get up on his own and was lying on the ground for about 40 minutes. Currently he complains of pain in the left lateral side of the chest that is worsened with deep breathing and coughing. He has had multiple such falls due to feeling dizzy and losing balance and has had fractured ribs in the past as well. Additonally, he mentions being very forgetful lately. Denies fever,chills, headache, shortness of breath, cough, nausea, vomiting. ED documentation reviewed and case discussed with ED provider. In the ED he was treated with morphine, 0.9 normal saline and dextrose. Vitals: T 98.2F, P 66 bpm, RR 19, BP 110/55, O2 sat 98% on RA EKG: sinus rhythm, first degree AV block with WA 273 ms, poor R wave progression, rate of 63 bpm, QTc 457 ms Ribs with chest x-ray: Lateral fourth, seventh and eighth rib fractures. A second more anterior eighth rib fracture is present Chest x-ray: Bilateral lower lobe atelectasis favored over pneumonia, stable right-sided rib fractures CT head: No acute intracranial process, minimal chronic appearing periventricular white matter ischemic changes and atrophy CT cervical spine: No acute orders abnormality of cervical spine, degenerative disc changes present C5-C6 and to a lesser degree elsewhere throughout the cervical spine, mild foraminal narrowing is present Shoulder x-ray: No acute osseous left shoulder abnormality Labs on presentation: Hemoglobin 7.4, PT 11.1, INR 1, potassium 5.3, BUN 41, creatinine 2.14, glucose 52 04/25/24: Patient seen and evaluated bedside today. No acute events overnight. Complains of pain on the left lateral side of the chest. Continues to use the incentive spirometer. Labs today show hemoglobin 10.9, sodium 142, potassium 4.4, A1c 6.2. 04/26/24: Patient seen and examined today. No acute events overnight. Still complains of pain on the left lateral side of the chest. Orthostatic blood pre ssure sitting 128/65, standing 135/65, supine 138/61. Labs today hemoglobin 10.6, BUN 29.5, creatinine 1.7. 04/27/24: Patient seen and evaluated today. No acute events overnight. Complains of pain on the left lateral side of the chest and in the lower back. Labs today show Folate 14.60, Ammonia <9, TSH 1.7 BUN 27.5, creatinine 1.3, hemoglobin 10.4, hematocrit 32.6. 04/28/2024 Patient was seen and examined today. No issues overnight. Complains of left- sided chest wall pain secondary to rib fractures, remains on room air, afebrile. WBC 5.4, hemoglobin 10.9, platelet 233. BMP unremarkable, creatinine 1.15. UA positive for glucose. Awaiting MRI head and spine tomorrow. Assessment/Plan: The patient is a 78 year old male with PMH of multiple falls, CABG who presented to the ER with altered mental status after a fall, sustaining multiple rib fractures. He has been admitted for further work up of multiple falls and altered mental status. #. Multiple Rib fracture, secondary to multiple mechanical falls Negative orthostatics, r/o orthostatic hypotension Continue Acetaminophen 650 mg PO Q6HR PRN, Lidocaine patch and methocarbamol 750 mg PO QID for pain management Encourage use of incentive spirometer PT and OT recommended Home with spouse and home care with the use of rolling walker Obtain CK level #. Altered mental status H/o of multiple falls and hitting his head Patient has worsening forgetfulness Brain CT shows no acute intracranial process, remote lacunar injury along with nonspecific white matter changes likely secondary to chronic microangiopathy Folate 14.60, Ammonia <9, TSH 1.7 MRI of the brain, MRI of the lumbar spine and EEG ordered--ending Vitamin B12 ordered Fall precautions Neurology consulted #. Constipation Continue Colace and MiraLAX Bisacodyl 10 mg once as needed #. Insulin-dependent diabetes mellitus A1c is 6.2 Continue Insulin sliding scale Continue Levemir 21 mg at bedtime #. STEVIE on CPAP Patient advised to use CPAP machine inpatient as well Pulmnology following #. History of CAD with CABG Continue Metoprolol 12.5 mg p.o. twice daily, Atorvastatin 40 mg p.o. daily, Imdur 30 mg p.o. daily Eliquis #. History of BPH Continue Tamsulosin 0.4 mg p.o. daily #. Anxiety Continuing Xanax 0.25 mg p.o. 3 times daily as needed #. History of asthma Continue Singulair 10 mg p.o. at bedtime RUMA: Resolved F:0.9 normal saline at 75 ml/hr E:Replete as required N:Heart healthy diet A:Ambulatory DVT prophylaxis: Eliquis 5mg PO TID Monitor vital signs and labs Labs and medication were reviewed. Continue same treatment. Further recommendations as per clinical course of the patient PHYSICAL EXAMINATION: GENERAL: The patient is A&O x2-3, NAD HEENT: EOMI, Sclerae anicteric, Moist Mucous membranes Neck: Supple, Non tender, No JVD PULMONARY: Equal breath souds B/L, No wheezing, No crackles. CARDIOVASCULAR: S1, S2 present. No murmurs, rubs, or gallops. ABDOMEN: Soft, nontender, nondistended, normoactive bowel sounds. No guarding or rebound tenderness. MUSCULOSKELETAL: No edema, No cyanosis. No clubbing. Normal ROM. Intact peripheral pulses. EXTREMITIES: No cyanosis, clubbing, or pedal edema. NEUROLOGICAL: CN 2-12 grossly intact. No FND Skin: No Rash REVIEW OF SYSTEMS: CONSTITUTIONAL: No fever or chills. CARDIOVASCULAR: No chest pain, palpitations or syncope. PULMONARY: No shortness of breath, no cough, sore throat. GASTROINTESTINAL: No nausea, vomiting, diarrhea, abdominal pain. : No Dysuria, urgency, frequency. Extremities: No edema. NEUROLOGICAL: No headaches, no weakness, or numbness Except as above. Dictation was produced using [employer] dictation software. please excuse any grammatical, word or spelling errors. Objective - Vital Signs Vital signs: Vital Signs Temp 98.0 F 04/28/24 07:59 Pulse 61 04/28/24 07:59 Resp 18 04/28/24 07:59 BP 141/59 04/28/24 07:59 Pulse Ox 90 L 04/28/24 07:59 FiO2 Intake & Output 04/27/24 04/28/24 04/28/24 18:59 06:59 18:59 Output Total 400 Balance -400 Output: Urine 400 Other: Voiding Method Toilet Toilet Urinal Urinal # Voids 2 2 1 # Bowel Movements 2 1 - Labs CBC & Chem 7: 04/28/24 08:22 04/28/24 08:22 Labs: Abnormal Lab Results - Last 24 Hours (Table) 04/27/24 04/28/24 04/28/24 Range/Units 21:02 06:40 08:22 RBC 3.47 L (4.30-5.90) m/uL Hgb 10.9 L (13.0-17.5) gm/dL Hct 34.4 L (39.0-53.0) % Chloride (98-107) mmol/L BUN (9-20) mg/dL Glucose (74-99) mg/dL POC Glucose (mg/dL) 167 H 235 H (70-110) mg/dL Urine Glucose (UA) (Negative) Urine Ketones (Negative) 04/28/24 04/28/24 04/28/24 Range/Units 08:22 12:01 13:07 RBC (4.30-5.90) m/uL Hgb (13.0-17.5) gm/dL Hct (39.0-53.0) % Chloride 109 H (98-107) mmol/L BUN 23 H (9-20) mg/dL Glucose 179 H (74-99) mg/dL POC Glucose (mg/dL) 334 H (70-110) mg/dL Urine Glucose (UA) 4+ H (Negative) Urine Ketones Trace H (Negative)
[2024-04-28 16:51] LABS: Glucose,Whole Blood 343 mg/dL (70-110)
--- NOTE | 2024-04-28 20:00 | P.PN ---
Subjective Patient seen and evaluated at bedside. Patient doing well, no complaints Objective - Vital Signs Vital signs: Vital Signs Temp 98.1 F 04/28/24 15:23 Pulse 59 L 04/28/24 15:23 Resp 18 04/28/24 15:23 BP 122/58 04/28/24 15:23 Pulse Ox 91 L 04/28/24 15:23 FiO2 Intake & Output 04/28/24 04/28/24 04/29/24 06:59 18:59 06:59 Output Total 400 Balance -400 Output: Urine 400 Other: Voiding Method Toilet Urinal # Voids 2 1 # Bowel Movements 1 - Exam gen: nad cv: rrr pul: non labored breathing, minimal chest pain abd: soft, no distended, non tender to palpation - Labs CBC & Chem 7: 04/28/24 08:22 04/28/24 08:22 Labs: Abnormal Lab Results - Last 24 Hours (Table) 04/27/24 04/28/24 04/28/24 Range/Units 21:02 06:40 08:22 RBC 3.47 L (4.30-5.90) m/uL Hgb 10.9 L (13.0-17.5) gm/dL Hct 34.4 L (39.0-53.0) % Chloride (98-107) mmol/L BUN (9-20) mg/dL Glucose (74-99) mg/dL POC Glucose (mg/dL) 167 H 235 H (70-110) mg/dL Urine Glucose (UA) (Negative) Urine Ketones (Negative) 04/28/24 04/28/24 04/28/24 Range/Units 08:22 12:01 13:07 RBC (4.30-5.90) m/uL Hgb (13.0-17.5) gm/dL Hct (39.0-53.0) % Chloride 109 H (98-107) mmol/L BUN 23 H (9-20) mg/dL Glucose 179 H (74-99) mg/dL POC Glucose (mg/dL) 334 H (70-110) mg/dL Urine Glucose (UA) 4+ H (Negative) Urine Ketones Trace H (Negative) 04/28/24 Range/Units 16:49 RBC (4.30-5.90) m/uL Hgb (13.0-17.5) gm/dL Hct (39.0-53.0) % Chloride (98-107) mmol/L BUN (9-20) mg/dL Glucose (74-99) mg/dL POC Glucose (mg/dL) 343 H (70-110) mg/dL Urine Glucose (UA) (Negative) Urine Ketones (Negative) Assessment and Plan Assessment: 78 yo male w/ rib fractures encephalopathy different from baseline, repeat ct head negative for acute process neuro consult: awaiting eed/mri no new changes Time with Patient: Less than 30
[2024-04-28 20:14] LABS: Glucose,Whole Blood 262 mg/dL (70-110)
[2024-04-29 06:12] LABS: Glucose,Whole Blood 109 mg/dL (70-110)
[2024-04-29 08:32] LABS: HCT 31.1 % (39.6-50.0); HGB 9.9 g/dL (13.0-17.0); MCH 31.4 pg (27.0-32.0); MCHC 31.8 g/dL (32.0-37.0); MCV 98.7 FL (80.0-97.0); Mean Platelet Volume 11.2 FL (9.5-12.2); NRBC Per 100 WBC 0 X 10*3/uL (0.00-0.01); Platelet Count 236 X 10*3/uL (140-440); RBC 3.15 X 10*6/uL (4.40-5.60); RDW 11.9 % (11.5-14.5); WBC 6.04 X 10*3/uL (4.50-10.00)
[2024-04-29 08:46] LABS: BUN/Creat Ratio 18.46 Ratio (12.00-20.00); Calcium 8.4 mg/dL (8.7-10.3); Carbon Dioxide 24.6 mmol/L (21.6-31.8); Chloride 108 mmol/L (96-109); Glucose 69 mg/dL (70-110); Potassium 4.5 mmol/L (3.5-5.5); Sodium 142 mmol/L (135-145)
[2024-04-29 11:30] LABS: Glucose,Whole Blood 397 mg/dL (70-110)
--- NOTE | 2024-04-29 13:11 | P.PN ---
Subjective Progress Note Date: 04/29/24 SURGICAL PROGRESS NOTE CHIEF COMPLAINT: Fall HISTORY OF PRESENT ILLNESS: Patient with left-sided rib fractures after fall. Patient sitting up at bedside chair. He still has pain in the left rib cage. Bradford vivar is followed by neurology regarding his confusion and falls it is scheduled for MRI of the brain, MRI of the lumbar spine and EEG. Patient with episodes of V. tach and cardiology now on consult. Chest x-ray no acute process. WBC 6.04 Hgb 9.9 PHYSICAL EXAM: VITAL SIGNS: Reviewed. GENERAL: Well-developed in no acute distress. HEENT left ear with bruising and mild abrasion Chest: Equal breath sounds bilaterally ABDOMEN: Soft. Nondistended. Nontender. NEUROLOGIC: Awake and alert. ASSESSMENT: 1. Fall with trauma to left-sided ribs with fracture 2. Left lateral fourth, seventh and eighth rib fracture and second more anterior eighth rib fracture 3. Confused. CT scan brain x 2 negative for acute process PLAN: -Continue neuro work-up -Continue pain management -Continue work with PT OT -Encourage patient to use incentive spirometer -Cardiology on consult for arrhythmia Physician [employer] note has been reviewed by physician. Signing provider agrees with the documented findings, assessment, and plan of care. Objective - Vital Signs Vital signs: Vital Signs Temp 97.7 F 04/29/24 08:00 Pulse 66 04/29/24 08:00 Resp 18 04/29/24 08:00 BP 132/64 04/29/24 08:00 Pulse Ox 92 L 04/29/24 08:00 FiO2 Intake & Output 04/28/24 04/29/24 04/29/24 18:59 06:59 18:59 Other: Voiding Method Toilet # Voids 1 1 # Bowel Movements 1 - Labs CBC & Chem 7: 04/29/24 03:20 04/29/24 03:20 Labs: Abnormal Lab Results - Last 24 Hours (Table) 04/28/24 04/28/24 04/28/24 Range/Units 13:07 16:49 20:12 RBC (4.40-5.60) X 10*6/uL Hgb (13.0-17.0) g/dL Hct (39.6-50.0) % MCV (80.0-97.0) FL MCHC (32.0-37.0) g/dL Est GFR (CKD-EPI) (>=60) Glucose (70-110) mg/dL POC Glucose (mg/dL) 343 H 262 H (70-110) mg/dL Calcium (8.7-10.3) mg/dL Urine Glucose (UA) 4+ H (Negative) Urine Ketones Trace H (Negative) 04/29/24 04/29/24 04/29/24 Range/Units 03:20 03:20 11:28 RBC 3.15 L (4.40-5.60) X 10*6/uL Hgb 9.9 L (13.0-17.0) g/dL Hct 31.1 L (39.6-50.0) % MCV 98.7 H (80.0-97.0) FL MCHC 31.8 L (32.0-37.0) g/dL Est GFR (CKD-EPI) 57 L (>=60) Glucose 69 L (70-110) mg/dL POC Glucose (mg/dL) 397 H (70-110) mg/dL Calcium 8.4 L (8.7-10.3) mg/dL Urine Glucose (UA) (Negative) Urine Ketones (Negative)
--- NOTE | 2024-04-29 13:40 | P.PN ---
Subjective Progress Note Date: 04/29/24 This is a 78-year-old male patient who came in to the hospital following a fall. The patient was carrying grocery and he tripped and fell and he stated that he hit his head and he landed on his left chest wall and shoulder. Noted the patient has been having frequent episodes of falls. He has been having episodes of dizziness which could be orthostatic. He is diabetic. He has an extensive history of coronary artery disease, previous bypass surgery, diabetes mellitus, chronic kidney disease, hypertension, hyperlipidemia, and previous episodes of myocardial infarction. He also has history of prostate cancer treated by radiation therapy and LHRH agonist. At this point in time, the patient is awake and alert. CAT scan of the brain showed no acute abnormalities. X-ray of the chest showed bilateral atelectatic changes and he had rib views and it was noted that the patient has fracture in the lateral fourth seventh and eighth rib. He also has chronic elevation of the right hemidiaphragm which is probably a complication of previous thoracotomy and bypass surgery. His pain is around 8 out of 10 in severity and the patient is currently on 2 L of oxygen by nasal cannula. He is receiving [place] for pain control. He was also offered an incentive spirometer. The white cell count 7.8, hemoglobin 11.1 and a platelet count of 209. CT scan of the head and cervical spine shows no acute abn ormalities. Noted the patient takes anticoagulants and his current cardiac rhythm is sinus. His previous echocardiogram had shown an ejection fraction of 40 to 45% back in 2020. His carotid Doppler from 10/23/2023 showed scattered plaques in the carotid bifurcation, no significant carotid stenosis or lesions. On 04/25/2024, the patient is resting comfortably in bed and the patient is currently on room air oxygen with a pulse ox of 92%. The patient is complaining of some pain in his left lateral chest wall. He continues to use incentive spirometer. He is vitals remained essentially stable, afebrile and normotensive. The white cell count is at 7.3 with hemoglobin 10.9 and platelet count of 2 8. BUN is 25 the creatinine of 1.3 and a sodium levels at 132. Noted the creatinine is improved from 2.1-1.3. Remains on anticoagulation with Eliquis 5 mg p.o. twice a day. Rest of the medications remain unchanged. [place] 5 for pain control every 4-6 hours, as needed. Morphine for breakthrough pain. On today's evaluation of 04/26/2024, the patient has no specific complaints. The patient is currently on room air oxygen. Pain is improved and the patient had negative orthostatics. CAT scan of the brain was also done today that showed remote lacunar injury with some nonspecific white matter changes likely secondary to chronic microangiopathy. No acute intracranial process noted. La bs are stable. Blood sugar slightly elevated at 326. The rest of the labs show a white cell count of 7, hemoglobin of 10.6 and a platelet count of 232. The BUN is at 29 with a creatinine of 1.7 and sodium of is at 140. Creatinine is somewhat fluctuated as the patient's admission creatinine was 2.1, dropped down to 1.3 and currently is at 1.7. The patient remains on anticoagulation with Eliquis 5 mg p.o. twice a day. The patient is on Levemir insulin 21 units and a sliding scale coverage. The patient is on IV fluids normal saline at rate of 75 cc an hour. Receiving morphine 4 mg every 4 hours on a as needed basis and the patient has a lidocaine patch and Robaxin. Tylenol also for pain control. 04/27/2024, the patient is being seen for a follow-up. The patient is doing well. No specific complaints. The patient remains on room air oxygen. Neurology evaluated the patient and further workup was ordered including MRI of the brain and the spine. WBC was 7.2, hemoglobin 10.4 and a platelet count of 225. BUN is 27 with a creatinine 1.3 and a sodium levels at 142. Potassium lev el is at 4.1. No other significant events overnight. On 04/28/2024, the patient is being seen for a follow-up. The patient continues to have scattered left-sided chest wall pain which is essentially traumatic in nature. Based on that, I repeated the chest x-ray today and it shows no acute cardiopulmonary abnormalities. The patient had a traumatic fall resulting into skeletal left-sided chest wall pain. The patient had also sustained rib fractures involving the fourth 8 and the seventh rib on the left. No evidence of pneumothorax. No evidence of any pulmonary contusion. Neurology on the case regarding his recurrent falls. Negative orthostatics. Consider autonomic dysfunction/neuropathy contributing to his frequent falls. The patient is seen today April 29, 2024 in follow-up on the regular medical floor. He is currently sitting up in a chair. Awake and alert in no acute di stress. Maintaining good O2 saturations in the 90s on room air. His pain is well-controlled. He needs increased encouragement regarding the use and the incentive spirometer. Chest x-ray reveals no acute pulmonary process. White count 6.0. Hemoglobin 9.9. Platelets 236. Sodium 142. Potassium 4.5. Bicarb 25. BUN 24. Creatinine 1.3. Glucose 69. He is anticoagulated with Eliquis. Objective - Vital Signs Vital signs: Vital Signs Temp 97.7 F 04/29/24 08:00 Pulse 66 04/29/24 08:00 Resp 18 04/29/24 08:00 BP 132/64 04/29/24 08:00 Pulse Ox 92 L 04/29/24 08:00 FiO2 Intake & Output 04/28/24 04/29/24 04/29/24 18:59 06:59 18:59 Other: Voiding Method Toilet # Voids 1 1 # Bowel Movements 1 - Exam GENERAL EXAM: Alert, pleasant 78-year-old male, on room air, comfortable in no apparent distress. HEAD: Normocephalic. EYES: Normal reaction of pupils, equal size. NOSE: Clear with pink turbinates. THROAT: No erythema or exudates. NECK: No masses, no JVD. CHEST: No chest wall deformity. LUNGS: Equal air entry with no crackles, wheeze, rhonchi or dullness. CVS: S1 and S2 normal with no audible murmur, regular rhythm. ABDOMEN: No hepatosplenomegaly, normal bowel sounds, no guarding or rigidity. SPINE: No scoliosis or deformity SKIN: No rashes CENTRAL NERVOUS SYSTEM: No focal deficits, tone is normal in all 4 extremities. EXTREMITIES: There is no peripheral edema. No clubbing, no cyanosis. Peripheral pulses are intact. - Labs CBC & Chem 7: 04/29/24 03:20 04/29/24 03:20 Labs: Abnormal Lab Results - Last 24 Hours (Table) 04/28/24 04/28/24 04/28/24 Range/Units 13:07 16:49 20:12 RBC (4.40-5.60) X 10*6/uL Hgb (13.0-17.0) g/dL Hct (39.6-50.0) % MCV (80.0-97.0) FL MCHC (32.0-37.0) g/dL Est GFR (CKD-EPI) (>=60) Glucose (70-110) mg/dL POC Glucose (mg/dL) 343 H 262 H (70-110) mg/dL Calcium (8.7-10.3) mg/dL Urine Glucose (UA) 4+ H (Negative) Urine Ketones Trace H (Negative) 04/29/24 04/29/24 04/29/24 Range/Units 03:20 03:20 11:28 RBC 3.15 L (4.40-5.60) X 10*6/uL Hgb 9.9 L (13.0-17.0) g/dL Hct 31.1 L (39.6-50.0) % MCV 98.7 H (80.0-97.0) FL MCHC 31.8 L (32.0-37.0) g/dL Est GFR (CKD-EPI) 57 L (>=60) Glucose 69 L (70-110) mg/dL POC Glucose (mg/dL) 397 H (70-110) mg/dL Calcium 8.4 L (8.7-10.3) mg/dL Urine Glucose (UA) (Negative) Urine Ketones (Negative) Assessment and Plan Assessment: Frequent falls, rule out autonomic dysfunction, ruled out orthostatic hypotension. CT scan of the head of the brain has been negative. Carotids done recently showed no significant stenosis. Cardiac rhythm is sinus. Repeat CAT scan of the brain done today shows remote lacunar insult without any acute intracranial abnormalities. Consider autonomic dysfunction/neuropathy contributing to his frequent falls. EEG and MRI of the brain pending Left rib fracture, traumatic in nature involving the fourth seventh and eighth rib on the left. No evidence of any hemothorax or pulmonary contusion. 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 STEVIE and he is using the CPAP Chronic asthma Diabetes mellitus type 2 Hypertension hyperlipidemia Ischemic cardiomyopathy, with reduced left ventricular systolic function with EF of 35-40% History of CVA/TIA Prostate cancer, post radiation therapy Benign prostatic hypertrophy Anxiety/depression Plan: The patient was seen and evaluated Labs and medications reviewed Stable and on room air Pain is well-controlled Continue the use of the incentive spirometer EEG and MRI of the brain pending I have personally seen and examined the patient, performed the documentation and the assessment and plan as written. Number of minutes spent on the visit: 10 Dictation was produced using [employer] dictation software. Please excuse any grammatical, word or spelling errors.
--- NOTE | 2024-04-29 14:31 | P.CRDCN ---
History of Present Illness Consult date: 04/29/24 Reason for Consult (text): Irregular heart rhythms/V. tach runs History of present illness: This is a 78-year-old male patient of Dr. EVA Pritchett with past medical history of ischemic cardiomyopathy with previous multivessel PCI and bypass surgery, paroxysmal atrial fibrillation, hypertension, hyperlipidemia, diabetes mellitus type 2, chronic kidney disease. We have been asked to evaluate the patient for irregular heartbeat, V. tach runs. Patient gives history of over the past 3 years having multiple falls. He states he had 4-5 significant falls. He states if he tries to walk more than three quarters of a mile he starts getting dizzy and he may fall. This has happened several times while he is doing yard work where he this and becomes dizzy and falls. He did this recently and that was the reason he came into the hospital on 04/23. He was found to have multiple left-sided rib fractures. This morning he had episodes of V. tach but patient states he was in bed at the time did not feel any palpitations, no lightheadedness or dizziness. However, he does state that often times early in the morning he can hear his heartbeat in his head lasting for about 15 to 20 minutes. No new chest pain at this time. Blood pressure 132/64, heart rate 66, pulse ox 92% on room air. EKG: Sinus rhythm with first-degree block Chest x-ray:Performed on 04/28 reveals no acute process. Laboratory studies: WBC 6, hemoglobin 9.9. Electrolytes and renal function within normal limits. TSH 1.7. A1c 6.2. Initial creatinine 2.14. Home cardiac medications: Eliquis 5 mg twice daily, atorvastatin 40 mg daily, Lasix 40 mg twice daily, Imdur 30 mg daily, losartan 25 mg daily, Lopressor 12.5 mg twice daily, Aldactone 25 mg daily. Note that patient is not currently on his home dose of Lasix, losartan, Aldactone. Cardiac catheterization 03/19/2021 revealed normal filling pressures, total occlusion of the LAD and RCA, vein graft to the OM and PDA of the RCA are patent. RESIDENT SURGEON actually feels from the mid LAD segment, RODRIGUES to LAD patent but to the distal LAD flow improved with nitroglycerin. CV surgery 2018: RODRIGUES to LAD, VG to circumflex, and PDA branch of the RCA Echocardiogram performed 03/08/2023 reveals EF 40%, small akinetic area of the inferior septal region from the mid wall to the apex and anterior wall at the a pex, mild AR, mild to moderate MR and TR, RVSP 41. Lexiscan stress test performed 02/28/2024 was nondiagnostic electrocardiographic stress testing. Abnormal myocardial perfusion imaging with a large prior myocardial infarction involving the anterior apical and anterior septal wall with impaired left ventricular systolic function consistent with prior ND in the LAD territory. Event monitor 03/22/2023 revealed sinus rhythm with average heart rate 54 bpm. No significant arrhythmias. No A-fib. 4 beat run of V. tach and asymptomatic. Review Of Systems: At the time of my exam: CONSTITUTIONAL: Denies fever or chills. HEENT: Denies blurred vision, vision changes, or eye pain. Denies hemoptysis CARDIOVASCULAR: Denies chest pain. Denies orthopnea. Denies PND. Denies palpita tions RESPIRATORY: Denies shortness of breath. GASTROINTESTINAL: Denies abdominal pain. Denies nausea or vomiting. HEMATOLOGIC: Denies bleeding disorders. GENITOURINARY: Denies any blood in urine. SKIN: Denies puritis. Denies rash. Physical examination: Gen: This is a 78-year-old male in no acute distress VS: reviewed HEENT: Head is atraumatic, normocephalic. Pupils equal, round. Sclerae is an icteric. NECK: Supple. No JVD. LUNGS: Clear to auscultation. No wheezes or rhonchi. No intercostal retractions. HEART: Regular rate and rhythm. Systolic murmur. ABDOMEN: Soft No tenderness. EXTREMITIES: No pedal edema. No calf tenderness. NEUROLOGICAL: Patient is awake, alert and oriented x3. Assessment: SVT, 30 beats Bradycardia Fall Left rib fractures Coronary artery disease with multivessel PCI and bypass surgery Ischemic cardiomyopathy Paroxysmal atrial fibrillation in sinus rhythm Hypertension Hyperlipidemia Diabetes Chronic kidney disease Plan: Continue patient's home cardiac medications Note that Lasix, losartan, Aldactone have not been resumed Continue telemetry monitoring Increase frequency of Lopressor 12.5 mg to 3 times daily Obtain troponin x 2 Obtain 2-D echocardiogram and Doppler study to assess cardiac structure and function Patient may require an EPS study, may require ICD Further recommendations to follow based upon clinical course Thank you kindly for this consultation. Nurse practitioner note has been reviewed, I agree with documented findings and plan of care. Patient was seen and examined. Past Medical History Past Medical History: Asthma, Coronary Artery Disease (CAD), Cancer, CVA/TIA, Diabetes Mellitus, Hyperlipidemia, Hypertension, Myocardial Infarction (ND), Prostate Disorder Additional Past Medical History / Comment(s): pos occult stool,hx SOME UPPER RIGHT CHEST PAIN. HX OF TIA, ENLARGED PROSTATE, ND X3, Prostate CA Last Myocardial Infarction Date:: 10/01/2011 History of Any Multi-Drug Resistant Organisms: None Reported Past Surgical History: Coronary Bypass/CABG, Heart Catheterization With Stent, Hernia Repair Additional Past Surgical History / Comment(s): INGUINAL HERNIA, RT HEEL SURGERY WITH HARDWARE. BILATERAL CATARACTS.CABG-3 vessels Past Anesthesia/Blood Transfusion Reactions: No Reported Reaction Additional Past Anesthesia/Blood Transfusion Reaction / Comment(s): no hx blood transfusion Date of Last Stent Placement:: 10/01/2011 Past Psychological History: Anxiety, Depression Smoking Status: Never smoker Past Alcohol Use History: None Reported Past Drug Use History: None Reported - Past Family History Mother Family Medical History: Cancer, Diabetes Mellitus Additional Family Medical History / Comment(s): pancreas Father Family Medical History: Cancer Medications and Allergies Home Medications Medication Instructions Recorded Confirmed Type Citalopram Hydrobromide [CeleXA] 40 mg PO DAILY 03/21/14 04/24/24 History Apixaban [Eliquis] 5 mg PO BID tab 01/19/18 04/24/24 Rx Atorvastatin [Lipitor] 40 mg PO DAILY tab 01/19/18 04/24/24 Rx Insulin NPH Hum/Reg Insulin Hm 32 unit SQ HS 02/05/18 04/24/24 History [NovoLIN 70-30 100 UNIT/ML VIAL] Spironolactone [Aldactone] 25 mg PO DAILY 07/06/18 04/24/24 History ALPRAZolam [Xanax] 0.25 mg PO TID PRN 03/18/21 04/24/24 History Finasteride [Proscar] 5 mg PO DAILY 03/18/21 04/24/24 History Montelukast [Singulair] 10 mg PO HS 03/18/21 04/24/24 History metFORMIN HCL 1,000 mg PO BID 03/18/21 04/24/24 History Isosorbide Mononitrate ER [Imdur] 30 mg PO DAILY 04/21/22 04/24/24 History buPROPion HCL [buPROPion HCL Xl] 150 mg PO DAILY 04/21/22 04/24/24 History Furosemide [Lasix] 40 mg PO BID 10/11/22 04/24/24 History Insulin NPH Hum/Reg Insulin Hm 42 unit SQ DAILY 10/11/22 04/24/24 History [Novolin 70-30 100 Unit/ml Vial] Metoprolol Tartrate [Lopressor] 12.5 mg PO BID 10/11/22 04/24/24 History Tamsulosin [Flomax] 0.4 mg PO DAILY 10/11/22 04/24/24 History Docusate Sodium [Dok] 100 mg PO BID 04/24/24 04/24/24 History Dulaglutide [Trulicity] 3 mg SQ Q7D 04/24/24 04/24/24 History Fluticasone/Vilanterol [Breo 1 puff INHALATION RT-DAILY 04/24/24 04/24/24 History Ellipta 100-25 Mcg Inhalr] Losartan [Cozaar] 25 mg PO DAILY 04/24/24 04/24/24 History Meclizine [Antivert] 12.5 mg PO TID PRN 04/24/24 04/24/24 History Allergies Allergy/AdvReac Type Severity Reaction Status Date / Time No Known Allergies Allergy Verified 04/24/24 08:07 Physical Exam Vitals: Vital Signs Temp Pulse Resp BP BP Pulse Ox 04/29/24 08:00 97.7 F 66 18 132/64 92 L 04/29/24 00:49 98.4 F 57 L 17 133/48 92 L 04/28/24 19:09 98.1 F 57 L 19 127/67 94 L 04/28/24 15:23 98.1 F 59 L 18 122/58 91 L Intake and Output 04/28/24 04/29/24 04/29/24 22:59 06:59 14:59 Other: Voiding Method Toilet # Voids 1 Results 04/29/24 03:20 04/29/24 03:20 CBC 04/28/24 04/29/24 Range/Units 08:22 03:20 WBC 5.4 6.04 (3.8-10.6) k/uL RBC 3.47 L 3.15 L (4.30-5.90) m/uL Hgb 10.9 L 9.9 L (13.0-17.5) gm/dL Hct 34.4 L 31.1 L (39.0-53.0) % Plt Count 233 236 (150-450) k/uL Comprehensive Metabolic Panel 04/28/24 04/29/24 Range/Units 08:22 03:20 Sodium 141 142 (137-145) mmol/L Potassium 4.2 4.5 (3.5-5.1) mmol/L Chloride 109 H 108 (98-107) mmol/L Carbon Dioxide 28 24.6 (22-30) mmol/L BUN 23 H 24.0 (9-20) mg/dL Creatinine 1.15 1.3 (0.66-1.25) mg/dL Glucose 179 H 69 L (74-99) mg/dL Calcium 8.8 8.4 L (8.4-10.2) mg/dL Current Medications Generic Name Dose Route Start Last Admin Trade Name Freq PRN Reason Stop Dose Admin Acetaminophen 650 mg 04/26/24 11:48 04/28/24 17:11 Acetaminophen Tab 325 Mg Tab PO 650 mg Q6HR PRN Administration Fever and/ or Pain Alprazolam 0.25 mg 04/24/24 15:13 04/25/24 15:03 Alprazolam 0.25 Mg Tab PO 0.25 mg TID PRN Administration Anxiety Apixaban 5 mg 04/24/24 21:00 04/29/24 08:28 Apixaban 5 Mg Tab PO 5 mg BID LUCIANA Administration Protocol Atorvastatin Calcium 40 mg 04/25/24 09:00 04/29/24 08:28 Atorvastatin 40 Mg Tab PO 40 mg DAILY LUCIANA Administration Bisacodyl 10 mg 04/25/24 10:53 Bisacodyl 10 Mg Supp RECTAL ONCE PRN Constipation Dextrose/Water 25 ml 04/24/24 12:48 Dextrose 50% Syringe 50 Ml IVP PER PROTOCOL PRN Hypoglycemia Protocol Dextrose/Water 50 ml 04/24/24 12:48 Dextrose 50% Syringe 50 Ml IVP PER PROTOCOL PRN Hypoglycemia Protocol Docusate Sodium 100 mg 04/24/24 11:15 04/29/24 08:28 Docusate 100 Mg Cap PO 100 mg BID LUCIANA Administration Famotidine 20 mg 04/26/24 09:00 04/29/24 08:28 Famotidine 20 Mg Tab PO 20 mg DAILY LUCIANA Administration Sodium Chloride 1,000 mls @ 75 mls/hr 04/26/24 12:00 04/29/24 07:06 Saline 0.9% IV Not Given .[id number] [facility] Insulin Aspart 0 unit 04/24/24 17:30 04/29/24 07:03 Insulin Aspart (Novolog) 100 Unit/Ml Vial SQ Not Given ACHS [facility] Protocol Insulin Detemir 21 unit 04/25/24 21:00 04/28/24 21:33 Insulin Detemir (Levemir) 100 Unit/Ml Syr SQ 21 unit HS [facility] Administration Isosorbide Mononitrate 30 mg 04/25/24 09:00 04/29/24 08:28 Isosorbide Mononitrate Er 30 Mg Tab.Er.24h PO 30 mg DAILY LUCIANA Administration Lidocaine 1 patch 04/24/24 13:30 04/29/24 08:28 Lidocaine 4% Patch TOPICAL 1 patch DAILY [facility] Administration Protocol Methocarbamol 750 mg 04/24/24 18:00 04/29/24 08:28 Methocarbamol 750 Mg Tab PO 750 mg QID LUCIANA Administration Metoprolol Tartrate 12.5 mg 04/24/24 21:00 04/29/24 08:28 Metoprolol Tartrate 12.5 Mg Tab PO 12.5 mg BID LUCIANA Administration Montelukast Sodium 10 mg 04/24/24 21:00 04/28/24 21:32 Montelukast 10 Mg Tab PO 10 mg HS LUCIANA Administration Morphine Sulfate 4 mg 04/23/24 22:08 04/29/24 06:14 Morphine Sulfate 4 Mg/Ml Syringe IVP 4 mg Q4HR PRN Administration Severe Pain (Scale 7 to 10) Naloxone HCl 0.2 mg 04/23/24 22:08 Naloxone 0.4 Mg/Ml 1 Ml Vial IV Q2M PRN Opioid Reversal Polyethylene Glycol 17 gm 04/25/24 09:00 04/29/24 08:28 Polyethylene Glycol 3350 17 Gm Powd.Pack PO 17 gm DAILY LUCIANA Administration Tamsulosin HCl 0.4 mg 04/25/24 09:00 04/29/24 08:28 Tamsulosin 0.4 Mg Cap.Er.24h PO 0.4 mg DAILY LUCIANA Administration Intake and Output 04/28/24 04/29/24 04/29/24 22:59 06:59 14:59 Other: Voiding Method Toilet # Voids 1 04/29/24 03:20 04/29/24 03:20
--- NOTE | 2024-04-29 15:00 | P.PN ---
Subjective Progress Note Date: 04/29/24 Principal diagnosis: Hospital course: Patient is a 78 year old male with PMH of multiple falls who presented to the ED after a fall. He mentions about a fall a couple days ago that caused him to have rib fractures. Yesterday he had another fall while coming back from the grocery store. He was carrying heavy bags in bith his hands.There are 2 steps in his garage. While trying to climb the 2nd stair he felt dizzy and like the room was spinning, lost balance and fell backwards and towards his right side, hitting his head and bruising his ear. He did not lose consciousness, but was not able to get up on his own and was lying on the ground for about 40 minutes. Currently he complains of pain in the left lateral side of the chest that is worsened with deep breathing and coughing. He has had multiple such falls due to feeling dizzy and losing balance and has had fractured ribs in the past as well. Additonally, he mentions being very forgetful lately. Denies fever,chills, headache, shortness of breath, cough, nausea, vomiting. ED documentation reviewed and case discussed with ED provider. In the ED he was treated with morphine, 0.9 normal saline and dextrose. Vitals: T 98.2F, P 66 bpm, RR 19, BP 110/55, O2 sat 98% on RA EKG: sinus rhythm, first degree AV block with CT 273 ms, poor R wave progression, rate of 63 bpm, QTc 457 ms Ribs with chest x-ray: Lateral fourth, seventh and eighth rib fractures. A second more anterior eighth rib fracture is present Chest x-ray: Bilateral lower lobe atelectasis favored over pneumonia, stable right-sided rib fractures CT head: No acute intracranial process, minimal chronic appearing periventricula r white matter ischemic changes and atrophy CT cervical spine: No acute orders abnormality of cervical spine, degenerative disc changes present C5-C6 and to a lesser degree elsewhere throughout the ce rvical spine, mild foraminal narrowing is present Shoulder x-ray: No acute osseous left shoulder abnormality Labs on presentation: Hemoglobin 7.4, PT 11.1, INR 1, potassium 5.3, BUN 41, creatinine 2.14, glucose 52 04/25/24: Patient seen and evaluated bedside today. No acute events overnight. Complains of pain on the left lateral side of the chest. Continues to use the in centive spirometer. Labs today show hemoglobin 10.9, sodium 142, potassium 4.4, A1c 6.2. 04/26/24: Patient seen and examined today. No acute events overnight. Still complains of pain on the left lateral side of the chest. Orthostatic blood pressure sitting 128/65, standing 135/65, supine 138/61. Labs today hemoglobin 10.6, BUN 29.5, creatinine 1.7. 04/27/24: Patient seen and evaluated today. No acute events overnight. Complains of pain on the left lateral side of the chest and in the lower back. Labs today show Folate 14.60, Ammonia <9, TSH 1.7 BUN 27.5, creatinine 1.3, hemoglobin 10.4, hematocrit 32.6. 04/28/2024 Patient was seen and examined today. No issues overnight. Complains of left- sided chest wall pain secondary to rib fractures, remains on room air, afebrile. WBC 5.4, hemoglobin 10.9, platelet 233. BMP unremarkable, creatinine 1.15. UA positive for glucose. Awaiting MRI head and spine tomorrow. 04/29/24: Patient seen and examined today. No acute events overnight. Complains of left-sided chest wall pain secondary to rib fractures but has seen an improvement in his pain. Currently on room air. Labs today show hemoglobin 9.9, MCV 98.7, hematocrit 31.1, calcium 8.4. Review of systems: Pertinent positives and negatives as discussed in HPI, a complete review of systems was performed and all other systems are negative. Vitals: Signs Reviewed Physical examination: General: nontoxic, no distress, appears at stated age Derm: warm, dry, intact Head: bruise on pinna of the left ear, normocephalic, symmetric Eyes: EOMI, anicteric sclera Mouth: no lip lesion, mucus membranes moist Cardiovascular: S1 S2 reg, no murmur Lungs: CTA bilateral, no rhonchi, no rales, no accessory muscle use Abdominal: soft, non tender to palpation Extremities: No cyanosis, clubbing, or pedal edema. Neuro: Alert, Oriented, Gross neurological examination did not reveal any focal deficits. Psych: well appearing, appropriate affect Assessment/Plan: The patient is a 78 year old male with PMH of multiple falls, CABG who presented to the ER with altered mental status after a fall, sustaining multiple rib fractures. He has been admitted for further work up of multiple falls and altered mental status. #. Multiple Rib fracture, secondary to multiple mechanical falls Negative orthostatics, r/o orthostatic hypotension CK BB 0.7, MB 0.7, MM 98.6 Continue Acetaminophen 650 mg PO Q6HR PRN, Lidocaine patch and methocarbamol 750 mg PO QID for pain management. Morphine 4 mg IVP Q4HR PRN for breakthrough pain. Encourage use of incentive spirometer PT and OT recommended Home with spouse and home care with the use of rolling walker #. Altered mental status H/o of multiple falls and hitting his head Patient has worsening forgetfulness Repeat Brain CT shows no acute intracranial process, remote lacunar injury along with nonspecific white matter changes likely secondary to chronic microangiopathy Folate 14.60, Ammonia <9, TSH 1.7 UA shows 4+ glucose and trace ketones MRI of the brain, MRI of the lumbar spine and EEG today Fall precautions Neurochecks [id number], [id number] Neurology consulted #. Constipation Continue Colace and MiraLAX Bisacodyl 10 mg once as needed #. Insulin-dependent diabetes mellitus A1c is 6.2 Continue Insulin sliding scale Continue Levemir 21 mg at bedtime #. STEVIE on CPAP Patient advised to use CPAP machine inpatient as well Pulmnology following #. History of CAD with CABG Continue Metoprolol 12.5 mg p.o. twice daily, Atorvastatin 40 mg p.o. daily, Imdur 30 mg p.o. daily and Eliquis 5 mg PO BID Telemetry monitoring #. History of BPH Continue Tamsulosin 0.4 mg p.o. daily #. Anxiety Continuing Xanax 0.25 mg p.o. 3 times daily as needed #. History of asthma Continue Singulair 10 mg p.o. at bedtime #. RUMA, resolved F:0.9 normal saline at 75 ml/hr E:Replete as required N:Heart healthy diet A:Ambulatory DVT prophylaxis: Eliquis 5mg PO TID GI prophylaxis: Famotidine 20 mg p.o. daily Attestation: I have personally seen and examined the patient with Resident, reviewed the documentation and participated and agree with the assessment and plan as written. Moises Ram MD Objective - Vital Signs Vital signs: Vital Signs Temp 97.7 F 04/29/24 08:00 Pulse 66 04/29/24 08:00 Resp 18 04/29/24 08:00 BP 132/64 04/29/24 08:00 Pulse Ox 92 L 04/29/24 08:00 FiO2 Intake & Output 04/28/24 04/29/24 04/29/24 18:59 06:59 18:59 Other: Voiding Method Toilet # Voids 1 1 # Bowel Movements 1 - Labs CBC & Chem 7: 04/30/24 03:14 04/30/24 03:14 Labs: Abnormal Lab Results - Last 24 Hours (Table) 04/28/24 04/28/24 04/28/24 Range/Units 08:22 08:22 12:01 RBC 3.47 L (4.30-5.90) m/uL Hgb 10.9 L (13.0-17.5) gm/dL Hct 34.4 L (39.0-53.0) % MCV (80.0-97.0) FL MCHC (32.0-37.0) g/dL Chloride 109 H (98-107) mmol/L BUN 23 H (9-20) mg/dL Est GFR (CKD-EPI) (>=60) Glucose 179 H (74-99) mg/dL POC Glucose (mg/dL) 334 H (70-110) mg/dL Calcium (8.7-10.3) mg/dL Urine Glucose (UA) (Negative) Urine Ketones (Negative) 04/28/24 04/28/24 04/28/24 Range/Units 13:07 16:49 20:12 RBC (4.30-5.90) m/uL Hgb (13.0-17.5) gm/dL Hct (39.0-53.0) % MCV (80.0-97.0) FL MCHC (32.0-37.0) g/dL Chloride (98-107) mmol/L BUN (9-20) mg/dL Est GFR (CKD-EPI) (>=60) Glucose (74-99) mg/dL POC Glucose (mg/dL) 343 H 262 H (70-110) mg/dL Calcium (8.7-10.3) mg/dL Urine Glucose (UA) 4+ H (Negative) Urine Ketones Trace H (Negative) 04/29/24 04/29/24 Range/Units 03:20 03:20 RBC 3.15 L (4.30-5.90) m/uL Hgb 9.9 L (13.0-17.5) gm/dL Hct 31.1 L (39.0-53.0) % MCV 98.7 H (80.0-97.0) FL MCHC 31.8 L (32.0-37.0) g/dL Chloride (98-107) mmol/L BUN (9-20) mg/dL Est GFR (CKD-EPI) 57 L (>=60) Glucose 69 L (74-99) mg/dL POC Glucose (mg/dL) (70-110) mg/dL Calcium 8.4 L (8.7-10.3) mg/dL Urine Glucose (UA) (Negative) Urine Ketones (Negative)
[2024-04-29 16:53] LABS: Glucose,Whole Blood 234 mg/dL (70-110)
[2024-04-29] MEDS: METOPROLOL TARTRATE 12.5 MG TAB PO SCH (17:02)
[2024-04-29 21:00] LABS: Glucose,Whole Blood 257 mg/dL (70-110)
--- NOTE | 2024-04-30 00:18 | EEG ---
DATE OF SERVICE: 04/29/2024 ELECTROENCEPHALOGRAM REPORT PREAMBLE: This is a 78-year-old male, who has presented with altered mental status, rule out seizure. CURRENT MEDICATIONS: 1. Eliquis. 2. Xanax. 3. Colace. 4. Levemir. 5. Imdur. 6. Lopressor. 7. Morphine. EEG FINDINGS: This is a 21-channel digital EEG recorded with video component, utilizing 10/20 international system with referential and bipolar montages. Background consists of well-developed, moderately well regulated, predominantly 6 to 7 hertz theta activity seen in bihemispheric region. Background is slightly posterior dominant, minimally reactive to eye opening and closing. Photic driving response was not seen. Different stages of sleep were not clearly seen. No focal or generalized epileptiform activity was seen. IMPRESSION: This is an abnormal EEG due to background slowing, suggestive of [id number] encephalopathy. No focal, lateralized, or epileptiform activity was seen. MMODL / IJN: [id number] / [facility]
[2024-04-30 06:37] LABS: Glucose,Whole Blood 121 mg/dL (70-110)
[2024-04-30 08:27] LABS: HCT 30.2 % (39.6-50.0); HGB 9.6 g/dL (13.0-17.0); MCH 31.3 pg (27.0-32.0); MCHC 31.8 g/dL (32.0-37.0); MCV 98.4 FL (80.0-97.0); Mean Platelet Volume 11.2 FL (9.5-12.2); NRBC Per 100 WBC 0 X 10*3/uL (0.00-0.01); Platelet Count 230 X 10*3/uL (140-440); RBC 3.07 X 10*6/uL (4.40-5.60); RDW 12.1 % (11.5-14.5); WBC 5.19 X 10*3/uL (4.50-10.00)
[2024-04-30 09:27] LABS: Blood Urea Nitrogen 22.2 mg/dL (9.0-27.0); Calcium 8.5 mg/dL (8.7-10.3); Carbon Dioxide 24.1 mmol/L (21.6-31.8); Chloride 108 mmol/L (96-109); Glucose 185 mg/dL (70-110); Potassium 4.4 mmol/L (3.5-5.5); Sodium 141 mmol/L (135-145)
--- NOTE | 2024-04-30 11:08 | P.PN ---
Subjective Progress Note Date: 04/29/24 Patient was initially seen by Dr. González [place]. Please refer to his note for details. Patient is a 78-year-old male with recurrent falls. Patient states that he had suffered from falls 3 years ago a few times due to losing balance but they were not bad falls. He states that he was trimming the weeds and his leg got twisted and he fell about 2 years ago. He has 3-4 bad falls in the last 2 months. One of the fall was the worst 3 to 4 months ago. He has problem with balance. With the last fall he broke 3 ribs. Patient denies any numbness or tingling in the feet. Patient has history of diabetes. Some of the work-up during this hospital visit consisted of: Orthostatic vital is negative. Pulse oxygen as low as 92% Sugar was as high as in 300s. He had 1 episode of 67. Currently is 231. HbA1c: 6.2 I reviewed rest of lab work-up. CT of the head: Is reported as no acute intracranial process. I reviewed the CT and agree with the report. Feel patient has ventriculomegaly but I feel it is due to central atrophy that is global CT cervical spine is reported as no acute osseous abnormality cervical spine. Degenerative disc changes present C5-C6 and to a lesser degree elsewhere throughout the cervical spine. Some mild foraminal narrowing is present from uncovertebral joint hypertrophy. Repeat CT head: No acute intracranial process. Remote lacunar injury along with nonspecific white matter changes likely secondary due to chronic microangiopathy. Rib x-ray is reported as lateral fourth, seventh and eighth rib fracture. A second more anterior eighth rib fracture is present. Objective - Vital Signs Vital signs: Vital Signs Temp 98.7 F 04/30/24 07:13 Pulse 73 04/30/24 07:13 Resp 17 04/30/24 07:13 BP 133/53 04/30/24 07:13 Pulse Ox 95 04/30/24 07:13 FiO2 Intake & Output 04/29/24 04/30/24 04/30/24 18:59 06:59 18:59 Other: Voiding Method Toilet # Voids 4 3 # Bowel Movements 1 - Exam Mental status, speech and language functions are normal. Patient knows it is April 2024 and that he is in [facility] on [place]. Cranial nerves are normal. Muscle strength is normal in the arms and legs. Slightly shaky for [id number] testing bilaterally. - Labs CBC & Chem 7: 04/30/24 03:14 04/30/24 03:14 Labs: Abnormal Lab Results - Last 24 Hours (Table) 04/29/24 04/29/24 04/29/24 Range/Units 11:28 16:51 20:57 RBC (4.40-5.60) X 10*6/uL Hgb (13.0-17.0) g/dL Hct (39.6-50.0) % MCV (80.0-97.0) FL MCHC (32.0-37.0) g/dL Glucose (70-110) mg/dL POC Glucose (mg/dL) 397 H 234 H 257 H (70-110) mg/dL Calcium (8.7-10.3) mg/dL 04/30/24 04/30/24 04/30/24 Range/Units 03:14 03:14 06:35 RBC 3.07 L (4.40-5.60) X 10*6/uL Hgb 9.6 L (13.0-17.0) g/dL Hct 30.2 L (39.6-50.0) % MCV 98.4 H (80.0-97.0) FL MCHC 31.8 L (32.0-37.0) g/dL Glucose 185 H (70-110) mg/dL POC Glucose (mg/dL) 121 H (70-110) mg/dL Calcium 8.5 L (8.7-10.3) mg/dL Assessment and Plan Assessment: This is a 78-year-old gentleman with recurrent falls and is appears that he had 2 falls in the last 1 week and currently he is having episode of confusion. Recurrent falls of unknown etiology. Unsure if due to multifactorial of hypoxia, and rule out autonomic dysfunction from his diabetes, possible peripheral neuropathy as well as due to his ischemic cardiomyopathy. Delirium likely due to hospital induced as well as some metabolic encephalopathy. Had 2 CT of the head which were negative for any acute or subacute process. Diabetes mellitus Likely mild neuropathy Hypoxia as low as 92%L and was short of breath with short walk from bathroom Rib Fracture due to the fall Blood sugar as high as 300s History of diabetes mellitus History of asthma Underlying history of hypertension Hyperlipidemia History of coronary artery disease involving multivessel status post CABG History of myocardial infarction History of prostate cancer. Plan: Await MRI of the brain, MRI of the lumbar spine EEG was abnormal due to background slowing, suggestive of mild to moderate encephalopathy. No focal, lateralized or epileptiform activity was seen. B12 pending, folate 14.6, TSH 1.7, ammonia < 9. Hemoglobin A1c 6.2. Fall precaution Patient is on home medication of Eliquis. Defer rest of the medical management to primary other specialist
--- NOTE | 2024-04-30 11:46 | P.PN ---
Subjective Progress Note Date: 04/30/24 Reason for Consult (text): Irregular heart rhythms/V. tach runs History of present illness: This is a 78-year-old male patient of Dr. EVA Pritchett with past medical history of ischemic cardiomyopathy with previous multivessel PCI and bypass surgery, paroxy smal atrial fibrillation, hypertension, hyperlipidemia, diabetes mellitus type 2, chronic kidney disease. We have been asked to evaluate the patient for irregular heartbeat, V. tach runs. Patient gives history of over the past 3 years having multiple falls. He states he had 4-5 significant falls. He states if he tries to walk more than three quarters of a mile he starts getting dizzy and he may fall. This has happened several times while he is doing yard work where he this and becomes dizzy and falls. He did this recently and that was the reason he came into the hospital on 04/23. He was found to have multiple left-sided rib fractures. This morning he had episodes of V. tach but patient states he was in bed at the time did not feel any palpitations, no lightheadedness or dizziness. However, he does state that often times early in the morning he can hear his heartbeat in his head lasting for about 15 to 20 minutes. No new chest pain at this time. Blood pressure 132/64, heart rate 66, pulse ox 92% on room air. EKG: Sinus rhythm with first-degree block Chest x-ray:Performed on 04/28 reveals no acute process. Laboratory studies: WBC 6, hemoglobin 9.9. Electrolytes and renal function within normal limits. TSH 1.7. A1c 6.2. Initial creatinine 2.14. Home cardiac medications: Eliquis 5 mg twice daily, atorvastatin 40 mg daily, Lasix 40 mg twice daily, Imdur 30 mg daily, losartan 25 mg daily, Lopressor 12.5 mg twice daily, Aldactone 25 mg daily. Note that patient is not currently on his home dose of Lasix, losartan, Aldactone. Cardiac catheterization 03/19/2021 revealed normal filling pressures, total occlusion of the LAD and RCA, vein graft to the OM and PDA of the RCA are patent. [place]OPPER actually feels from the mid LAD segment, RODRIGUES to LAD patent but to the distal LAD flow improved with nitroglycerin. CV surgery 2018: RODRIGUES to LAD, VG to circumflex, and PDA branch of the RCA Echocardiogram performed 03/08/2023 reveals EF 40%, small akinetic area of the inferior septal region from the mid wall to the apex and anterior wall at the apex, mild AR, mild to moderate MR and TR, RVSP 41. Lexiscan stress test performed 02/28/2024 was nondiagnostic electrocardiographic stress testing. Abnormal myocardial perfusion imaging with a large prior myoc ardial infarction involving the anterior apical and anterior septal wall with impaired left ventricular systolic function consistent with prior IL in the LAD territory. Event monitor 03/22/2023 revealed sinus rhythm with average heart rate 54 bpm. No significant arrhythmias. No A-fib. 4 beat run of V. tach and asymptomatic. 04/30/2024 Patient seen and examined. Yesterday, we increased frequency of Lopressor 12.5 mg to 3 times daily. Overnight, patient did not have any further episodes of V. tach. Patient denies having any chest pain, palpitations, lightheadedness or dizziness. Echocardiogram report is pending. Troponins negative x 2. Hemoglobin 9.6, creatinine 1.2. Patient is scheduled for MRI today. We are planning on event monitor prior to discharge. It does not appear the patient will be going home today. Physical examination: Gen: This is a 78-year-old male in no acute distress VS: reviewed HEENT: Head is atraumatic, normocephalic. Pupils equal, round. Sclerae is anicteric. NECK: Supple. No JVD. LUNGS: Clear to auscultation. No wheezes or rhonchi. No intercostal retractions. HEART: Regular rate and rhythm. Systolic murmur. ABDOMEN: Soft No tenderness. EXTREMITIES: No pedal edema. No calf tenderness. NEUROLOGICAL: Patient is awake, alert and oriented x3. Assessment: SVT, 30 beats Bradycardia Fall Left rib fractures Coronary artery disease with multivessel PCI and bypass surgery Ischemic cardiomyopathy Paroxysmal atrial fibrillation in sinus rhythm Hypertension Hyperlipidemia Diabetes Chronic kidney disease Plan: Continue patient's home cardiac medications Note that Lasix, losartan, Aldactone have not been resumed Continue telemetry monitoring Continue Lopressor 12.5 mg 3 times daily Obtain 2-D echocardiogram and Doppler study to assess cardiac structure and function Patient may require an EPS study, may require ICD We will plan on event monitor prior to discharge. Further recommendations to follow based upon clinical course Nurse practitioner note has been reviewed, I agree with documented findings and plan of care. Patient was seen and examined. Objective - Vital Signs Vital signs: Vital Signs Temp 98.7 F 04/30/24 07:13 Pulse 73 04/30/24 07:13 Resp 17 04/30/24 07:13 BP 133/53 04/30/24 07:13 Pulse Ox 95 04/30/24 07:13 FiO2 Intake & Output 04/29/24 04/30/24 04/30/24 18:59 06:59 18:59 Other: Voiding Method Toilet # Voids 4 3 # Bowel Movements 1 - Labs CBC & Chem 7: 04/30/24 03:14 04/30/24 03:14 Labs: Abnormal Lab Results - Last 24 Hours (Table) 04/29/24 04/29/24 04/30/24 Range/Units 16:51 20:57 03:14 RBC 3.07 L (4.40-5.60) X 10*6/uL Hgb 9.6 L (13.0-17.0) g/dL Hct 30.2 L (39.6-50.0) % MCV 98.4 H (80.0-97.0) FL MCHC 31.8 L (32.0-37.0) g/dL Glucose (70-110) mg/dL POC Glucose (mg/dL) 234 H 257 H (70-110) mg/dL Calcium (8.7-10.3) mg/dL 04/30/24 04/30/24 Range/Units 03:14 06:35 RBC (4.40-5.60) X 10*6/uL Hgb (13.0-17.0) g/dL Hct (39.6-50.0) % MCV (80.0-97.0) FL MCHC (32.0-37.0) g/dL Glucose 185 H (70-110) mg/dL POC Glucose (mg/dL) 121 H (70-110) mg/dL Calcium 8.5 L (8.7-10.3) mg/dL
[2024-04-30 11:54] LABS: Glucose,Whole Blood 254 mg/dL (70-110)
--- NOTE | 2024-04-30 12:04 | CA ---
Transthoracic Echo Report Name: Ricky Friedman Age: 78 Gender: M : 1945 Exam Date: 04/30/2024 07:37 Exam Location: [place] [facility] Ht (in): 69 Wt (lb): 185 Ordering Physician: Attending/Referring Phys: [id number], [employer] Jennie Dsouza RDCS Procedure CPT: Indications: Left ventricular failure Cardiac Hx: CABG Technical Quality: Fair Contrast 1: Definity Total Dose (mL): 2 Contrast 2: Total Dose (mL): MEASUREMENTS (Male / Female) Normal Values 2D ECHO LV Diastolic Diameter PLAX 6.3 cm 4.2 - 5.9 / 3.9 - 5.3 cm LV Systolic Diameter PLAX 4.9 cm IVS Diastolic Thickness 1.1 cm 0.6 - 1.0 / 0.6 - 0.9 cm LVPW Diastolic Thickness 1.1 cm 0.6 - 1.0 / 0.6 - 0.9 cm LV Relative Wall Thickness 0.4 RV Internal Dim ED PLAX 2.3 cm LA Systolic Diameter LX 4.0 cm 3.0 - 4.0 / 2.7 - 3.8 cm LA Volume 108.4 cm??? 18 - 58 / 22 - 52 cm??? LA Volume Index 53.2 cm???/m??? 16 - 28 cm???/m??? M-MODE Aortic Root Diameter MM 3.2 cm LA Systolic Diameter MM 3.9 cm LA Ao Ratio MM 1.2 AV Cusp Separation MM 2.2 cm DOPPLER AV Peak Velocity 131.9 cm/s AV Peak Gradient 7.0 mmHg AI Peak Velocity 307.6 cm/s AI Peak Gradient 37.8 mmHg AI Pressure Half Time 941.3 ms MV Area PHT 2.2 cm??? Mitral E Point Velocity 64.5 cm/s Mitral A Point Velocity 78.5 cm/s Mitral E to A Ratio 0.8 MV Deceleration Time 339.2 ms TR Peak Velocity 238.4 cm/s TR Peak Gradient 22.7 mmHg FINDINGS Left Ventricle Left ventricular ejection fraction is estimated at 20-25 %. Mildly increased septal wall thickness. Mildly increased left ventricular diastolic diameter. Severely reduced global left ventricular systolic function. [place] akinetic. Right Ventricle Normal right ventricular size. Reduced right ventricular global systolic function. Right ventricular systolic pressure within normal limits. Right Atrium Normal right atrial size. Left Atrium Severely increased left atrial volume. Mildly increased left atrial area. Mitral Valve Structurally normal mitral valve. Moderate mitral regurgitation. No mitral stenosis. Aortic Valve Trileaflet aortic valve. Mild aortic regurgitation. No aortic stenosis. Tricuspid Valve Structurally normal tricuspid valve. Mild tricuspid regurgitation. No tricuspid stenosis. Pulmonic Valve Structurally normal pulmonic valve. Trace pulmonic regurgitation. No pulmonic stenosis. Pericardium No pericardial or pleural effusion. Aorta Normal size aortic root and proximal ascending aorta. CONCLUSIONS Dilated LV. Severely impaired LV systolic function with EF around 20 to 25% with mid ventricle and apical hypokinesia Moderate mitral regurgitation with intact mitral valve leaflets. The MR is secondary to cardiomyopathy Mild aortic regurgitation with aortic sclerosis and no stenosis Previewed by: Dr. Yandel Saenz MD (Electronically Signed) Final Date: 30 April 2024 12:04
--- NOTE | 2024-04-30 12:13 | P.PN ---
Subjective Progress Note Date: 04/30/24 This is a 78-year-old male patient who came in to the hospital following a fall. The patient was carrying grocery and he tripped and fell and he stated that he hit his head and he landed on his left chest wall and shoulder. Noted the patient has been having frequent episodes of falls. He has been having episodes of dizziness which could be orthostatic. He is diabetic. He has an extensive history of coronary artery disease, previous bypass surgery, diabetes mellitus, chronic kidney disease, hypertension, hyperlipidemia, and previous episodes of myocardial infarction. He also has history of prostate cancer treated by radiation therapy and LHRH agonist. At this point in time, the patient is awake and alert. CAT scan of the brain showed no acute abnormalities. X-ray of the chest showed bilateral atelectatic changes and he had rib views and it was noted that the patient has fracture in the lateral fourth seventh and eighth rib. He also has chronic elevation of the right hemidiaphragm which is probably a complication of previous thoracotomy and bypass surgery. His pain is around 8 out of 10 in severity and the patient is currently on 2 L of oxygen by nasal cannula. He is receiving [place] for pain control. He was also offered an incentive spirometer. The white cell count 7.8, hemoglobin 11.1 and a platelet count of 209. CT scan of the head and cervical spine shows no acute abn ormalities. Noted the patient takes anticoagulants and his current cardiac rhythm is sinus. His previous echocardiogram had shown an ejection fraction of 40 to 45% back in 2020. His carotid Doppler from 10/23/2023 showed scattered plaques in the carotid bifurcation, no significant carotid stenosis or lesions. On 04/25/2024, the patient is resting comfortably in bed and the patient is currently on room air oxygen with a pulse ox of 92%. The patient is complaining of some pain in his left lateral chest wall. He continues to use incentive spirometer. He is vitals remained essentially stable, afebrile and normotensive. The white cell count is at 7.3 with hemoglobin 10.9 and platelet count of 2 8. BUN is 25 the creatinine of 1.3 and a sodium levels at 132. Noted the creatinine is improved from 2.1-1.3. Remains on anticoagulation with Eliquis 5 mg p.o. twice a day. Rest of the medications remain unchanged. [place] 5 for pain control every 4-6 hours, as needed. Morphine for breakthrough pain. On today's evaluation of 04/26/2024, the patient has no specific complaints. The patient is currently on room air oxygen. Pain is improved and the patient had negative orthostatics. CAT scan of the brain was also done today that showed remote lacunar injury with some nonspecific white matter changes likely secondary to chronic microangiopathy. No acute intracranial process noted. La bs are stable. Blood sugar slightly elevated at 326. The rest of the labs show a white cell count of 7, hemoglobin of 10.6 and a platelet count of 232. The BUN is at 29 with a creatinine of 1.7 and sodium of is at 140. Creatinine is somewhat fluctuated as the patient's admission creatinine was 2.1, dropped down to 1.3 and currently is at 1.7. The patient remains on anticoagulation with Eliquis 5 mg p.o. twice a day. The patient is on Levemir insulin 21 units and a sliding scale coverage. The patient is on IV fluids normal saline at rate of 75 cc an hour. Receiving morphine 4 mg every 4 hours on a as needed basis and the patient has a lidocaine patch and Robaxin. Tylenol also for pain control. 04/27/2024, the patient is being seen for a follow-up. The patient is doing well. No specific complaints. The patient remains on room air oxygen. Neurology evaluated the patient and further workup was ordered including MRI of the brain and the spine. WBC was 7.2, hemoglobin 10.4 and a platelet count of 225. BUN is 27 with a creatinine 1.3 and a sodium levels at 142. Potassium lev el is at 4.1. No other significant events overnight. On 04/28/2024, the patient is being seen for a follow-up. The patient continues to have scattered left-sided chest wall pain which is essentially traumatic in nature. Based on that, I repeated the chest x-ray today and it shows no acute cardiopulmonary abnormalities. The patient had a traumatic fall resulting into skeletal left-sided chest wall pain. The patient had also sustained rib fractures involving the fourth 8 and the seventh rib on the left. No evidence of pneumothorax. No evidence of any pulmonary contusion. Neurology on the case regarding his recurrent falls. Negative orthostatics. Consider autonomic dysfunction/neuropathy contributing to his frequent falls. The patient is seen today April 29, 2024 in follow-up on the regular medical floor. He is currently sitting up in a chair. Awake and alert in no acute di stress. Maintaining good O2 saturations in the 90s on room air. His pain is well-controlled. He needs increased encouragement regarding the use and the incentive spirometer. Chest x-ray reveals no acute pulmonary process. White count 6.0. Hemoglobin 9.9. Platelets 236. Sodium 142. Potassium 4.5. Bicarb 25. BUN 24. Creatinine 1.3. Glucose 69. He is anticoagulated with Eliquis. The patient is seen today April 30, 2024 in follow-up on the regular medical floor. Sitting up in bed. Awake and alert in no acute distress. Maintaining good O2 saturations in the 90s on room air. EEG revealed background slowing suggestive of mild to moderate encephalopathy. No seizure activity. MRI of the brain and lumbar spine are pending. Echocardiogram revealed impaired left ventricular systolic function with ejection fraction 20 to 25%. White count 5.1. Hemoglobin 9.6. Platelets 230. Sodium 141. Potassium 4.4. Bicarb 24. BUN 22. Creatinine 1.2. Glucose 185. He is anticoagulated with Eliquis. Objective - Vital Signs Vital signs: Vital Signs Temp 98.7 F 04/30/24 07:13 Pulse 73 04/30/24 07:13 Resp 17 04/30/24 07:13 BP 133/53 04/30/24 07:13 Pulse Ox 95 04/30/24 07:13 FiO2 Intake & Output 04/29/24 04/30/24 04/30/24 18:59 06:59 18:59 Other: Voiding Method Toilet # Voids 4 3 # Bowel Movements 1 - Exam GENERAL EXAM: Alert, 78-year-old male, sitting up in bed, on room air, comfortable in no apparent distress. HEAD: Normocephalic. EYES: Normal reaction of pupils, equal size. NOSE: Clear with pink turbinates. THROAT: No erythema or exudates. NECK: No masses, no JVD. CHEST: No chest wall deformity. LUNGS: Equal air entry with no crackles, wheeze, rhonchi or dullness. CVS: S1 and S2 normal with no audible murmur, regular rhythm. ABDOMEN: No hepatosplenomegaly, normal bowel sounds, no guarding or rigidity. SPINE: No scoliosis or deformity SKIN: No rashes CENTRAL NERVOUS SYSTEM: No focal deficits, tone is normal in all 4 extremities. EXTREMITIES: There is no peripheral edema. No clubbing, no cyanosis. Pe ripheral pulses are intact. - Labs CBC & Chem 7: 04/30/24 03:14 04/30/24 03:14 Labs: Abnormal Lab Results - Last 24 Hours (Table) 04/29/24 04/29/24 04/30/24 Range/Units 16:51 20:57 03:14 RBC 3.07 L (4.40-5.60) X 10*6/uL Hgb 9.6 L (13.0-17.0) g/dL Hct 30.2 L (39.6-50.0) % MCV 98.4 H (80.0-97.0) FL MCHC 31.8 L (32.0-37.0) g/dL Glucose (70-110) mg/dL POC Glucose (mg/dL) 234 H 257 H (70-110) mg/dL Calcium (8.7-10.3) mg/dL 04/30/24 04/30/24 04/30/24 Range/Units 03:14 06:35 11:48 RBC (4.40-5.60) X 10*6/uL Hgb (13.0-17.0) g/dL Hct (39.6-50.0) % MCV (80.0-97.0) FL MCHC (32.0-37.0) g/dL Glucose 185 H (70-110) mg/dL POC Glucose (mg/dL) 121 H 254 H (70-110) mg/dL Calcium 8.5 L (8.7-10.3) mg/dL Assessment and Plan Assessment: Frequent falls, rule out autonomic dysfunction, ruled out orthostatic hypotension. CT scan of the head of the brain has been negative. Carotids done recently showed no significant stenosis. Cardiac rhythm is sinus. Repeat CAT scan of the brain done today shows remote lacunar insult without any acute intracranial abnormalities. Consider autonomic dysfunction/neuropathy contributing to his frequent falls. EEG reveals abnormal slowing possible mild to moderate encephalopathy. MRI of the brain pending Ischemic cardiomyopathy with an ejection fraction 20 to 25% Left rib fracture, traumatic in nature involving the fourth seventh and eighth rib on the left. No evidence of any hemothorax or pulmonary contusion. 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 STEVIE and he is using the CPAP Chronic asthma Diabetes mellitus type 2 Hypertension Hyperlipidemia History of CVA/TIA Prostate cancer, post radiation therapy Benign prostatic hypertrophy Anxiety/depression Plan: The patient was seen and evaluated Labs and medications reviewed Echocardiogram reviewed EEG reviewed, MRI of the brain pending Stable and on room air Increase his activity as tolerated Continue the use of the incentive spirometer Being considered for event monitor/electrophysiology study/ICD per cardiology I have personally seen and examined the patient, performed the documentation and the assessment and plan as written. Number of minutes spent on the visit: 10 Dictation was produced using [employer] dictation software. Please excuse any grammatical, word or spelling errors.
--- NOTE | 2024-04-30 12:18 | P.PN ---
Subjective Progress Note Date: 04/30/24 Principal diagnosis: Hospital course: Patient is a 78 year old male with PMH of multiple falls who presented to the ED after a fall. He mentions about a fall a couple days ago that caused him to have rib fractures. Yesterday he had another fall while coming back from the grocery store. He was carrying heavy bags in bith his hands.There are 2 steps in his garage. While trying to climb the 2nd stair he felt dizzy and like the room was spinning, lost balance and fell backwards and towards his right side, hitting his head and bruising his ear. He did not lose consciousness, but was not able to get up on his own and was lying on the ground for about 40 minutes. Currently he complains of pain in the left lateral side of the chest that is worsened with deep breathing and coughing. He has had multiple such falls due to feeling dizzy and losing balance and has had fractured ribs in the past as well. Additonally, he mentions being very forgetful lately. Denies fever,chills, headache, shortness of breath, cough, nausea, vomiting. ED documentation reviewed and case discussed with ED provider. In the ED he was treated with morphine, 0.9 normal saline and dextrose. Vitals: T 98.2F, P 66 bpm, RR 19, BP 110/55, O2 sat 98% on RA EKG: sinus rhythm, first degree AV block with IA 273 ms, poor R wave progression, rate of 63 bpm, QTc 457 ms Ribs with chest x-ray: Lateral fourth, seventh and eighth rib fractures. A second more anterior eighth rib fracture is present Chest x-ray: Bilateral lower lobe atelectasis favored over pneumonia, stable right-sided rib fractures CT head: No acute intracranial process, minimal chronic appearing periventricula r white matter ischemic changes and atrophy CT cervical spine: No acute orders abnormality of cervical spine, degenerative disc changes present C5-C6 and to a lesser degree elsewhere throughout the ce rvical spine, mild foraminal narrowing is present Shoulder x-ray: No acute osseous left shoulder abnormality Labs on presentation: Hemoglobin 7.4, PT 11.1, INR 1, potassium 5.3, BUN 41, creatinine 2.14, glucose 52 04/25/24: Patient seen and evaluated bedside today. No acute events overnight. Complains of pain on the left lateral side of the chest. Continues to use the in centive spirometer. Labs today show hemoglobin 10.9, sodium 142, potassium 4.4, A1c 6.2. 04/26/24: Patient seen and examined today. No acute events overnight. Still complains of pain on the left lateral side of the chest. Orthostatic blood pressure sitting 128/65, standing 135/65, supine 138/61. Labs today hemoglobin 10.6, BUN 29.5, creatinine 1.7. 04/27/24: Patient seen and evaluated today. No acute events overnight. Complains of pain on the left lateral side of the chest and in the lower back. Labs today show Folate 14.60, Ammonia <9, TSH 1.7 BUN 27.5, creatinine 1.3, hemoglobin 10.4, hematocrit 32.6. 04/28/2024 Patient was seen and examined today. No issues overnight. Complains of left- sided chest wall pain secondary to rib fractures, remains on room air, afebrile. WBC 5.4, hemoglobin 10.9, platelet 233. BMP unremarkable, creatinine 1.15. UA positive for glucose. Awaiting MRI head and spine tomorrow. 04/29/24: Patient seen and examined today. No acute events overnight. Complains of left-sided chest wall pain secondary to rib fractures but has seen an improvement in his pain. Currently on room air. Labs today show hemoglobin 9.9, MCV 98.7, hematocrit 31.1, calcium 8.4. 04/30/24: Patient seen and everted today at bedside. No acute events overnight. Complains of left-sided chest wall pain especially with deep breathing. Currently saturating well on room air. Labs today show Hb 9.6, Hct 30.2. Yesterday Mg 2.0, troponin I 0.016 x2. EEG done yesterday, Abnormal EEG due to background slowing consistent with mild to moderate encephalopathy. No focal lateralized or epileptiform activity seen. Echocardiogram shows EF 20 to 25%, dilated LV, severely impaired LV systolic function with mid ventricular and apical hypokinesia. Moderate MR secondary to cardiomyopathy. Mild AR with aortic sclerosis and no . Review of systems: Pertinent positives and negatives as discussed in HPI, a complete review of systems was performed and all other systems are negative. Vitals: Signs Reviewed Physical examination: General: nontoxic, no distress, appears at stated age Derm: warm, dry, intact Head: bruise on pinna of the left ear, normocephalic, symmetric Eyes: EOMI, anicteric sclera Mouth: no lip lesion, mucus membranes moist Cardiovascular: S1 S2 reg, no murmur Lungs: CTA bilateral, no rhonchi, no rales, no accessory muscle use Abdominal: soft, non tender to palpation Extremities: No cyanosis, clubbing, or pedal edema. Neuro: Alert, Oriented, Gross neurological examination did not reveal any focal deficits. Psych: well appearing, appropriate affect Assessment/Plan: The patient is a 78 year old male with PMH of multiple falls, CABG who presented to the ER with altered mental status after a fall, sustaining multiple rib fractures. He has been admitted for further work up of multiple falls and altered mental status. #. Multiple Rib fracture, secondary to multiple mechanical falls Negative orthostatics, r/o orthostatic hypotension CK BB 0.7, MB 0.7, MM 98.6 Continue Acetaminophen 650 mg PO Q6HR PRN, Lidocaine patch and methocarbamol 750 mg PO QID for pain management. Morphine 4 mg IVP Q4HR PRN for breakthrough pain. Encourage use of incentive spirometer PT and OT recommended Home with spouse and home care with the use of rolling walker Consulted home health Pulmnology is following #. Altered mental status H/o of multiple falls and hitting his head Patient has worsening forgetfulness Repeat Brain CT shows no acute intracranial process, remote lacunar injury along with nonspecific white matter changes likely secondary to chronic microangiopathy Folate 14.60, Ammonia <9, TSH 1.7 UA shows 4+ glucose and trace ketones EEG: Abnormal EEG due to background slowing consistent with mild to moderate encephalopathy. No focal lateralized or epileptiform activity seen. MRI of the brain, MRI of the lumbar spine pending Fall precautions Neurochecks [id number], [id number] Neurology consulted #. Arrythmia, SVT Metoprolol 12.5 mg frequency increased to TID Troponin I: 0.016 x2 Echocardiogram on 04/30/24 shows EF 20 to 25%, dilated LV, severely impaired LV systolic function with mid ventricular and apical hypokinesia. Moderate MR secondary to cardiomyopathy. Mild AR with aortic sclerosis and no . Patient may require an EPS study, may require ICD Continue telemetry monitoring Cardiology is following #. Constipation Continue Colace 100 mg p.o. twice daily and MiraLAX 17 g p.o. daily Bisacodyl 10 mg once as needed #. Insulin-dependent diabetes mellitus A1c is 6.2 Continue Insulin sliding scale Continue Levemir 21 mg at bedtime #. STEVIE on CPAP Patient advised to use CPAP machine inpatient as well Pulmnology following #. History of CAD with CABG Continue Atorvastatin 40 mg p.o. daily, Imdur 30 mg p.o. daily and Eliquis 5 mg PO BID #. History of BPH Continue Tamsulosin 0.4 mg p.o. daily #. Anxiety Continuing Xanax 0.25 mg p.o. 3 times daily as needed #. History of asthma Continue Singulair 10 mg p.o. at bedtime #. RUMA, resolved F:0.9 normal saline at 75 ml/hr E:Replete as required N:Heart healthy diet A:Ambulatory DVT prophylaxis: Eliquis 5mg PO BID GI prophylaxis: Famotidine 20 mg p.o. daily Attestation: I have personally seen and examined the patient with Resident, reviewed the documentation and participated and agree with the assessment and plan as written. Moises Ram MD Objective - Vital Signs Vital signs: Vital Signs Temp 97.7 F 04/30/24 02:43 Pulse 82 04/30/24 02:43 Resp 17 04/30/24 02:43 BP 114/72 04/30/24 02:43 Pulse Ox 95 04/30/24 02:43 FiO2 Intake & Output 04/29/24 04/30/24 04/30/24 18:59 06:59 18:59 Other: Voiding Method Toilet # Voids 4 3 # Bowel Movements 1 - Labs CBC & Chem 7: 04/30/24 03:14 04/30/24 03:14 Labs: Abnormal Lab Results - Last 24 Hours (Table) 04/29/24 04/29/24 04/29/24 Range/Units 03:20 03:20 11:28 RBC 3.15 L (4.40-5.60) X 10*6/uL Hgb 9.9 L (13.0-17.0) g/dL Hct 31.1 L (39.6-50.0) % MCV 98.7 H (80.0-97.0) FL MCHC 31.8 L (32.0-37.0) g/dL Est GFR (CKD-EPI) 57 L (>=60) Glucose 69 L (70-110) mg/dL POC Glucose (mg/dL) 397 H (70-110) mg/dL Calcium 8.4 L (8.7-10.3) mg/dL 04/29/24 04/29/24 04/30/24 Range/Units 16:51 20:57 06:35 RBC (4.40-5.60) X 10*6/uL Hgb (13.0-17.0) g/dL Hct (39.6-50.0) % MCV (80.0-97.0) FL MCHC (32.0-37.0) g/dL Est GFR (CKD-EPI) (>=60) Glucose (70-110) mg/dL POC Glucose (mg/dL) 234 H 257 H 121 H (70-110) mg/dL Calcium (8.7-10.3) mg/dL
--- NOTE | 2024-04-30 14:54 | P.PN ---
Subjective Progress Note Date: 04/30/24 SURGICAL PROGRESS NOTE CHIEF COMPLAINT: Fall HISTORY OF PRESENT ILLNESS: Patient with left-sided rib fractures after fall. Patient lying in bed comfortably. He reports his pain is controlled. He is fol lowed by cardiology for SVT. They have adjusted medications. Neurowork-up in progress. Afebrile. WBC 5.19 Hgb 9.6 PHYSICAL EXAM: VITAL S Afebrile.IGNS: Reviewed. GENERAL: Well-developed in no acute distress. HEENT left ear with bruising and mild abrasion Chest: Equal breath sounds bilaterally ABDOMEN: Soft. Nondistended. Nontender. NEUROLOGIC: Awake and alert. ASSESSMENT: 1. Fall with trauma to left-sided ribs with fracture 2. Left lateral fourth, seventh and eighth rib fracture and second more anterior eighth rib fracture 3. Confused. CT scan brain x 2 negative for acute process PLAN: -Continue cardiac and neurowork-up -No surgical intervention planned -Service has been switched over to medicine service -Trauma service will sign off. Please call with any questions or concerns Physician Grading Machine Operator note has been reviewed by physician. Signing provider agrees with the documented findings, assessment, and plan of care. Attestation Patient seen and examined at bedside. Appears stable from a trauma standpoint with continued analgesia for rib fractures. Patient is having continued cardiac and neurology workup. Recommend transfer to medicine service as no further plan from trauma service. Please call to reevaluate patient should patient have any change in clinical progress. Debora Amezquita, Objective - Vital Signs Vital signs: Vital Signs Temp 98.7 F 04/30/24 07:13 Pulse 73 04/30/24 07:13 Resp 17 04/30/24 07:13 BP 133/53 04/30/24 07:13 Pulse Ox 95 04/30/24 07:13 FiO2 Intake & Output 04/29/24 04/30/24 04/30/24 18:59 06:59 18:59 Other: Voiding Method Toilet # Voids 4 3 # Bowel Movements 1 - Labs CBC & Chem 7: 04/30/24 03:14 04/30/24 03:14 Labs: Abnormal Lab Results - Last 24 Hours (Table) 04/29/24 04/29/24 04/30/24 Range/Units 16:51 20:57 03:14 RBC 3.07 L (4.40-5.60) X 10*6/uL Hgb 9.6 L (13.0-17.0) g/dL Hct 30.2 L (39.6-50.0) % MCV 98.4 H (80.0-97.0) FL MCHC 31.8 L (32.0-37.0) g/dL Glucose (70-110) mg/dL POC Glucose (mg/dL) 234 H 257 H (70-110) mg/dL Calcium (8.7-10.3) mg/dL 04/30/24 04/30/24 04/30/24 Range/Units 03:14 06:35 11:48 RBC (4.40-5.60) X 10*6/uL Hgb (13.0-17.0) g/dL Hct (39.6-50.0) % MCV (80.0-97.0) FL MCHC (32.0-37.0) g/dL Glucose 185 H (70-110) mg/dL POC Glucose (mg/dL) 121 H 254 H (70-110) mg/dL Calcium 8.5 L (8.7-10.3) mg/dL
[2024-04-30 16:26] LABS: Glucose,Whole Blood 384 mg/dL (70-110)
[2024-04-30 19:58] LABS: Glucose,Whole Blood 90 mg/dL (70-110)
[2024-05-01 06:50] LABS: Glucose,Whole Blood 274 mg/dL (70-110)
--- NOTE | 2024-05-01 07:50 | MR ---
EXAMINATION TYPE: MR brain/lspine wo con DATE OF EXAM: 04/30/2024 1:35 PM COMPARISON: None. CLINICAL INDICATION: Male, 78 years old with history of altered mental status, Altered mental status, falls TECHNIQUE: Multiplanar, multiecho imaging on a 3.0 Ashley magnet is performed through the brain. Stud y is performed within 24 hours of arrival to the hospital.Multiplanar, multiecho imaging on a 3.0 Ayla la magnet is performed through the knee. IV Contrast: mL (None, if empty) FINDINGS: The craniovertebral junction is normal as visualized. Diffusion-weighted imaging is performed. No abnormal hyperintensity is present to suggest an acute i ntracranial infarct or acute ischemic change. There are scattered punctate areas of hyperintensity on T2 and Inversion Recovery weighted sequences which are non-specific but can be related to microvascular ischemic changes. Somewhat matter changes may be within the brainstem. Ventricles and sulci are prominent for the patient age. IMPRESSION: 1. Atrophy with chronic appearing periventricular white matter ischemic-type changes EXAMINATION TYPE: MR brain/lspine wo con DATE OF EXAM: 04/30/2024 1:35 PM COMPARISON: None. CLINICAL INDICATION: Male, 78 years old with history of altered mental status, Altered mental status, falls TECHNIQUE: Multiplanar, multisequence images of the lumbar spine were acquired. IV Contrast: mL (None, if empty) FINDINGS: Scoliosis is present. Disc desiccation is present L5-S1, L3-4, L1-2. Cord terminates at th e L1-2 level. L5-S1: No significant disc bulge or disc herniation. No spinal canal stenosis. No foraminal stenosi s. Mild facet hypertrophy is present.. L4-L5: No significant disc bulge or disc herniation. No spinal canal stenosis. Moderate to severe l eft foraminal stenosis is present. Mild right foraminal narrowing is present . Facet hypertrophy has mild posterior lateral thecal sac contact on the right. L3-L4: No significant disc bulge or disc herniation. No spinal canal stenosis. Mild left facet hype rtrophy is present There is moderate right foraminal narrowing. L2-L3: No significant disc bulge or disc herniation. No spinal canal stenosis. No foraminal stenosi s. . L1-L2: No significant disc bulge or disc herniation. No spinal canal stenosis. No foraminal stenosi s. . T12-L1: No significant disc bulge or disc herniation. No spinal canal stenosis. No foraminal stenos is. . IMPRESSION: 1. Moderate to severe foraminal narrowing within the lower lumbar spine L4-5 and L3-4. 2. Diffuse degenerative disc changes through the lumbar spine. [facility], Workstation: 3, 05/01/2024 7:47 AM
[2024-05-01 08:06] VITALS: TEMP 97.6
[2024-05-01 08:28] LABS: HCT 30.6 % (39.6-50.0); HGB 9.7 g/dL (13.0-17.0); MCH 30.7 pg (27.0-32.0); MCHC 31.7 g/dL (32.0-37.0); MCV 96.8 FL (80.0-97.0); Mean Platelet Volume 11.1 FL (9.5-12.2); NRBC Per 100 WBC 0 X 10*3/uL (0.00-0.01); Platelet Count 254 X 10*3/uL (140-440); RBC 3.16 X 10*6/uL (4.40-5.60); WBC 5.81 X 10*3/uL (4.50-10.00)
[2024-05-01 08:46] LABS: BUN/Creat Ratio 17.69 Ratio (12.00-20.00); Calcium 8.5 mg/dL (8.7-10.3); Carbon Dioxide 21.9 mmol/L (21.6-31.8); Chloride 105 mmol/L (96-109); Glucose 280 mg/dL (70-110); Potassium 4.9 mmol/L (3.5-5.5); Sodium 137 mmol/L (135-145)
[2024-05-01 11:29] LABS: Glucose,Whole Blood 228 mg/dL (70-110)
--- NOTE | 2024-05-01 12:31 | P.PN ---
Subjective Progress Note Date: 05/01/24 This is a 78-year-old male patient who came in to the hospital following a fall. The patient was carrying grocery and he tripped and fell and he stated that he hit his head and he landed on his left chest wall and shoulder. Noted the patient has been having frequent episodes of falls. He has been having episodes of dizziness which could be orthostatic. He is diabetic. He has an extensive history of coronary artery disease, previous bypass surgery, diabetes mellitus, chronic kidney disease, hypertension, hyperlipidemia, and previous episodes of myocardial infarction. He also has history of prostate cancer treated by radiation therapy and LHRH agonist. At this point in time, the patient is awake and alert. CAT scan of the brain showed no acute abnormalities. X-ray of the chest showed bilateral atelectatic changes and he had rib views and it was noted that the patient has fracture in the lateral fourth seventh and eighth rib. He also has chronic elevation of the right hemidiaphragm which is probably a complication of previous thoracotomy and bypass surgery. His pain is around 8 out of 10 in severity and the patient is currently on 2 L of oxygen by nasal cannula. He is receiving Nebo for pain control. He was also offered an incentive spirometer. The white cell count 7.8, hemoglobin 11.1 and a platelet count of 209. CT scan of the head and cervical spine shows no acute abn ormalities. Noted the patient takes anticoagulants and his current cardiac rhythm is sinus. His previous echocardiogram had shown an ejection fraction of 40 to 45% back in 2020. His carotid Doppler from 10/23/2023 showed scattered plaques in the carotid bifurcation, no significant carotid stenosis or lesions. On 04/25/2024, the patient is resting comfortably in bed and the patient is currently on room air oxygen with a pulse ox of 92%. The patient is complaining of some pain in his left lateral chest wall. He continues to use incentive spirometer. He is vitals remained essentially stable, afebrile and normotensive. The white cell count is at 7.3 with hemoglobin 10.9 and platelet count of 2 8. BUN is 25 the creatinine of 1.3 and a sodium levels at 132. Noted the creatinine is improved from 2.1-1.3. Remains on anticoagulation with Eliquis 5 mg p.o. twice a day. Rest of the medications remain unchanged. Nebo 5 for pain control every 4-6 hours, as needed. Morphine for breakthrough pain. On today's evaluation of 04/26/2024, the patient has no specific complaints. The patient is currently on room air oxygen. Pain is improved and the patient had negative orthostatics. CAT scan of the brain was also done today that showed remote lacunar injury with some nonspecific white matter changes likely secondary to chronic microangiopathy. No acute intracranial process noted. La bs are stable. Blood sugar slightly elevated at 326. The rest of the labs show a white cell count of 7, hemoglobin of 10.6 and a platelet count of 232. The BUN is at 29 with a creatinine of 1.7 and sodium of is at 140. Creatinine is somewhat fluctuated as the patient's admission creatinine was 2.1, dropped down to 1.3 and currently is at 1.7. The patient remains on anticoagulation with Eliquis 5 mg p.o. twice a day. The patient is on Levemir insulin 21 units and a sliding scale coverage. The patient is on IV fluids normal saline at rate of 75 cc an hour. Receiving morphine 4 mg every 4 hours on a as needed basis and the patient has a lidocaine patch and Robaxin. Tylenol also for pain control. 04/27/2024, the patient is being seen for a follow-up. The patient is doing well. No specific complaints. The patient remains on room air oxygen. Neurology evaluated the patient and further workup was ordered including MRI of the brain and the spine. WBC was 7.2, hemoglobin 10.4 and a platelet count of 225. BUN is 27 with a creatinine 1.3 and a sodium levels at 142. Potassium lev el is at 4.1. No other significant events overnight. On 04/28/2024, the patient is being seen for a follow-up. The patient continues to have scattered left-sided chest wall pain which is essentially traumatic in nature. Based on that, I repeated the chest x-ray today and it shows no acute cardiopulmonary abnormalities. The patient had a traumatic fall resulting into skeletal left-sided chest wall pain. The patient had also sustained rib fractures involving the fourth 8 and the seventh rib on the left. No evidence of pneumothorax. No evidence of any pulmonary contusion. Neurology on the case regarding his recurrent falls. Negative orthostatics. Consider autonomic dysfunction/neuropathy contributing to his frequent falls. The patient is seen today April 29, 2024 in follow-up on the regular medical floor. He is currently sitting up in a chair. Awake and alert in no acute di stress. Maintaining good O2 saturations in the 90s on room air. His pain is well-controlled. He needs increased encouragement regarding the use and the incentive spirometer. Chest x-ray reveals no acute pulmonary process. White count 6.0. Hemoglobin 9.9. Platelets 236. Sodium 142. Potassium 4.5. Bicarb 25. BUN 24. Creatinine 1.3. Glucose 69. He is anticoagulated with Eliquis. The patient is seen today April 30, 2024 in follow-up on the regular medical floor. Sitting up in bed. Awake and alert in no acute distress. Maintaining good O2 saturations in the 90s on room air. EEG revealed background slowing suggestive of mild to moderate encephalopathy. No seizure activity. MRI of the brain and lumbar spine are pending. Echocardiogram revealed impaired left ventricular systolic function with ejection fraction 20 to 25%. White count 5.1. Hemoglobin 9.6. Platelets 230. Sodium 141. Potassium 4.4. Bicarb 24. BUN 22. Creatinine 1.2. Glucose 185. He is anticoagulated with Eliquis. The patient is seen today May 01, 2024 in follow-up on the regular medical floor. He is resting comfortably in bed. Awake and alert in no acute distress. He is continuing to maintain good O2 saturations in the 90s on room air. He continues to work well with the incentive spirometer. Lidocaine patch remains in place. He is anticoagulated with Eliquis. MRI of the brain revealed atrophy with chronic appearing periventricular white matter ischemic type changes. MRI of the spine revealed moderate to severe foraminal narrowing within the lower lumbar spine L4-5 and L3-4. Diffuse degenerative disc changes. White count 5.8. Hemoglobin 9.7. Platelets 254. Sodium 137. Potassium 4.9. Bicarb 22. BUN 23. Creatinine 1.3. Glucose 280. Objective - Vital Signs Vital signs: Vital Signs Temp 97.6 F 05/01/24 08:00 Pulse 57 L 05/01/24 08:00 Resp 16 05/01/24 08:00 BP 117/54 05/01/24 08:00 Pulse Ox 95 05/01/24 08:00 FiO2 Intake & Output 04/30/24 05/01/24 05/01/24 18:59 06:59 18:59 Other: Voiding Method Toilet Toilet # Voids 2 2 1 # Bowel Movements 1 - Exam GENERAL EXAM: Alert, very pleasant 78-year-old male, resting in bed, on room air, in no apparent distress. HEAD: Normocephalic. EYES: Normal reaction of pupils, equal size. NOSE: Clear with pink turbinates. THROAT: No erythema or exudates. NECK: No masses, no JVD. CHEST: No chest wall deformity. LUNGS: Equal air entry with no crackles, wheeze, rhonchi or dullness. CVS: S1 and S2 normal with no audible murmur, regular rhythm. ABDOMEN: No hepatosplenomegaly, normal bowel sounds, no guarding or rigidity. SPINE: No scoliosis or deformity SKIN: No rashes CENTRAL NERVOUS SYSTEM: No focal deficits, tone is normal in all 4 extremities. EXTREMITIES: There is no peripheral edema. No clubbing, no cyanosis. Peripheral pulses are intact. - Labs CBC & Chem 7: 05/01/24 02:59 05/01/24 02:59 Labs: Abnormal Lab Results - Last 24 Hours (Table) 04/30/24 05/01/24 05/01/24 Range/Units 16:23 02:59 02:59 RBC 3.16 L (4.40-5.60) X 10*6/uL Hgb 9.7 L (13.0-17.0) g/dL Hct 30.6 L (39.6-50.0) % MCHC 31.7 L (32.0-37.0) g/dL Est GFR (CKD-EPI) 57 L (>=60) Glucose 280 H (70-110) mg/dL POC Glucose (mg/dL) 384 H (70-110) mg/dL Calcium 8.5 L (8.7-10.3) mg/dL 05/01/24 05/01/24 Range/Units 06:48 11:28 RBC (4.40-5.60) X 10*6/uL Hgb (13.0-17.0) g/dL Hct (39.6-50.0) % MCHC (32.0-37.0) g/dL Est GFR (CKD-EPI) (>=60) Glucose (70-110) mg/dL POC Glucose (mg/dL) 274 H 228 H (70-110) mg/dL Calcium (8.7-10.3) mg/dL Assessment and Plan Assessment: Frequent falls, rule out autonomic dysfunction, ruled out orthostatic hypotension. CT scan of the head of the brain has been negative. Carotids done recently showed no significant stenosis. Cardiac rhythm is sinus. Repeat CAT scan of the brain done today shows remote lacunar insult without any acute intracranial abnormalities. Consider autonomic dysfunction/neuropathy contribu ting to his frequent falls. EEG reveals abnormal slowing possible mild to moderate encephalopathy. MRI of the spine revealed moderate to severe foraminal narrowing within the lower lumbar spine L4-5 and L3-4. Diffuse degenerative disc changes Left rib fracture, traumatic in nature involving the fourth, seventh and eighth rib on the left. No evidence of any hemothorax or pulmonary contusion. 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 Number of minutes spent on the visit: 10 Dictation was produced using [employer] software. Please excuse any grammatical, word or spelling errors.
--- NOTE | 2024-05-01 13:40 | P.CNOR ---
History of Present Illness - [facility] Consult date: 05/01/24 Consult reason: low back pain History of present illness: Patient is a 78-year-old male who has been at [facility] for the last week, he was admitted mated due to multiple recent fallsand rib fractures. Patient is currently being followed by multiple medical specialties, he was initially admitted under general surgery as a trauma, he is being followed by internal medicine, neurology and cardiology. Patient has a very extensive medical and cardiac history with multiple heart attacks and stenting procedures. Patient underwent a brain and lumbar MRI yesterday, due to those abnormal findings in the lumbar spine, our orthopedic team was consulted. Patient was evaluated today at bedside, he is resting comfortably in his hospital chair, his mental status seems alert and oriented x 3. Patient is continue to go undergo multiple test due to his recent confusion and his recent falls. When asked about his low back, patient states he has had on and off back pain for many years, he states in the last 6 months the back pain has gotten a little bit worse. Patient admits to 3 or 4 significant falls over the last few months. Patient does not feel any obvious weakness in the lower extremities or upper extremities prior to the fall. Patient notes occasional numbness and tingling to the left lower extremity but nothing that is consistent. Patient takes no current medications for his low back pain. Patient denies any previous surgery to his lumbar spine. Patient is never been evaluated by a neurosurgeon or orthopedic spine surgeon for his low back. Patient has a history of prostate cancer so his urinary stream is abnormal. Patient denies any obvious loss of bowel or bladder function. He denies any numbness or tingling to the genital or perineal region at this time. He has no yelena weakness, numbness or tingling to the bilateral upper or lower extremities at this time. Patient normally utilizes a walker or cane for ambulation. Patient does live at home with his . Review of Systems Constitutional: Reports as per HPI Past Medical History Past Medical History: Asthma, Coronary Artery Disease (CAD), Cancer, CVA/TIA, Diabetes Mellitus, Hyperlipidemia, Hypertension, Myocardial Infarction ([place]), Prostate Disorder Additional Past Medical History / Comment(s): pos occult stool,hx SOME UPPER RIGHT CHEST PAIN. HX OF TIA, ENLARGED PROSTATE, [place] X3, Prostate CA Last Myocardial Infarction Date:: 10/01/2011 History of Any Multi-Drug Resistant Organisms: None Reported Past Surgical History: Coronary Bypass/CABG, Heart Catheterization With Stent, Hernia Repair Additional Past Surgical History / Comment(s): INGUINAL HERNIA, RT HEEL SURGERY WITH HARDWARE. BILATERAL CATARACTS.CABG-3 vessels Past Anesthesia/Blood Transfusion Reactions: No Reported Reaction Additional Past Anesthesia/Blood Transfusion Reaction / Comm: no hx blood transfusion Date of Last Stent Placement:: 10/01/2011 Past Psychological History: Anxiety, Depression Smoking Status: Never smoker Past Alcohol Use History: None Reported Past Drug Use History: None Reported - Past Family History Mother Family Medical History: Cancer, Diabetes Mellitus Additional Family Medical History / Comment(s): pancreas Father Family Medical History: Cancer Medications and Allergies Home Medications Medication Instructions Recorded Confirmed Type Citalopram Hydrobromide [CeleXA] 40 mg PO DAILY 03/21/14 04/24/24 History Apixaban [Eliquis] 5 mg PO BID tab 01/19/18 04/24/24 Rx Atorvastatin [Lipitor] 40 mg PO DAILY tab 01/19/18 04/24/24 Rx Insulin NPH Hum/Reg Insulin Hm 32 unit SQ HS 02/05/18 04/24/24 History [NovoLIN 70-30 100 UNIT/ML VIAL] Spironolactone [Aldactone] 25 mg PO DAILY 07/06/18 04/24/24 History ALPRAZolam [Xanax] 0.25 mg PO TID PRN 03/18/21 04/24/24 History Finasteride [Proscar] 5 mg PO DAILY 03/18/21 04/24/24 History Montelukast [Singulair] 10 mg PO HS 03/18/21 04/24/24 History metFORMIN HCL 1,000 mg PO BID 03/18/21 04/24/24 History Isosorbide Mononitrate ER [Imdur] 30 mg PO DAILY 04/21/22 04/24/24 History buPROPion HCL [buPROPion HCL Xl] 150 mg PO DAILY 04/21/22 04/24/24 History Furosemide [Lasix] 40 mg PO BID 10/11/22 04/24/24 History Insulin NPH Hum/Reg Insulin Hm 42 unit SQ DAILY 10/11/22 04/24/24 History [Novolin 70-30 100 Unit/ml Vial] Metoprolol Tartrate [Lopressor] 12.5 mg PO BID 10/11/22 04/24/24 History Tamsulosin [Flomax] 0.4 mg PO DAILY 10/11/22 04/24/24 History Docusate Sodium [Dok] 100 mg PO BID 04/24/24 04/24/24 History Dulaglutide [Trulicity] 3 mg SQ Q7D 04/24/24 04/24/24 History Fluticasone/Vilanterol [Breo 1 puff INHALATION RT-DAILY 04/24/24 04/24/24 History Ellipta 100-25 Mcg Inhalr] Losartan [Cozaar] 25 mg PO DAILY 04/24/24 04/24/24 History Meclizine [Antivert] 12.5 mg PO TID PRN 04/24/24 04/24/24 History Allergies Allergy/AdvReac Type Severity Reaction Status Date / Time No Known Allergies Allergy Verified 04/24/24 08:07 Physical Examination Gen: AOx3, NAD VSS stable at this time Integument: No open lesions or sores are visualized throughout the cervical, thoracic or lumbar spine Palpation: No significant tenderness is appreciated with palpation to the cervical, thoracic or lumbar spine ROM: Full range of motion in all major muscle groups of the bilateral upper and lower extremities, no focal deficits appreciated Sensory Exam: Senory exam to light touch is intact C5-T1 Senosry exam to light touch is intact L2-S1 Motor: 5/5 strength appreciated the bilateral upper extremities with shoulder elevation, shoulder abduction, elbow extension, elbow flexion, wrist extension, wrist flexion, [facility] 5/5 strength appreciated in the right lower extremity with hip flexion, knee extension, knee flexion, plantarflexion, dorsiflexion, EHL, FHL 4/5 strength appreciated in the left lower extremity with hip flexion, knee extension, knee flexion, plantarflexion, dorsiflexion, EHL, FHL Reflexes: 2/4 in all UE and LE Negative Eden's bilaterally Negative clonus bilaterally Special Test: Negative straight leg raise bilaterally Results - Labs Labs: Abnormal Lab Results - Last 24 Hours (Table) 04/30/24 05/01/24 05/01/24 Range/Units 16:23 02:59 02:59 RBC 3.16 L (4.40-5.60) X 10*6/uL Hgb 9.7 L (13.0-17.0) g/dL Hct 30.6 L (39.6-50.0) % MCHC 31.7 L (32.0-37.0) g/dL Est GFR (CKD-EPI) 57 L (>=60) Glucose 280 H (70-110) mg/dL POC Glucose (mg/dL) 384 H (70-110) mg/dL Calcium 8.5 L (8.7-10.3) mg/dL 05/01/24 05/01/24 Range/Units 06:48 11:28 RBC (4.40-5.60) X 10*6/uL Hgb (13.0-17.0) g/dL Hct (39.6-50.0) % MCHC (32.0-37.0) g/dL Est GFR (CKD-EPI) (>=60) Glucose (70-110) mg/dL POC Glucose (mg/dL) 274 H 228 H (70-110) mg/dL Calcium (8.7-10.3) mg/dL H & H 04/23/24 04/24/24 04/25/24 Range/Units 18:05 06:21 03:13 Hgb 11.4 L 11.1 L 10.9 L (13.0-17.5) gm/dL Hct 36.0 L 35.9 L 33.2 L (39.0-53.0) % 04/26/24 04/27/24 04/28/24 Range/Units 04:00 03:48 08:22 Hgb 10.6 L 10.4 L 10.9 L (13.0-17.5) gm/dL Hct 33.7 L 32.6 L 34.4 L (39.0-53.0) % 04/29/24 04/30/24 05/01/24 Range/Units 03:20 03:14 02:59 Hgb 9.9 L 9.6 L 9.7 L (13.0-17.5) gm/dL Hct 31.1 L 30.2 L 30.6 L (39.0-53.0) % Coagulation 04/23/24 Range/Units 18:05 INR 1.0 (<1.2) Result Diagrams: 05/01/24 02:59 05/01/24 02:59 - Diagnostic results CT scan - cervical: report reviewed, image reviewed Lumbar MRI with/without contrast: report reviewed, image reviewed Assessment and Plan Assessment: Chronic low back pain Multilevel lumbar spondylosis, worse at L3-L4, L4-L5, L5-S1 Multilevel lumbar neuroforaminal stenosis, worse at L3-L4, L4-L5 Multilevel cervical spondylosis History of recent falls Multiple medical comorbidities Plan: Imaging: Cervical spine CT scan along with lumbar MRI without contrast both images and reports were reviewed. Images demonstrated multilevel spondylosis of both the cervical spine and lumbar spine. Patient had significant neuroforaminal stenosis on the left side of L4-L5. Plan: I was able to review the case, this to include both physical exam findings and imaging studies and my attending Dr. Luna's and. No emergent orthopedic woody rgical intervention is recommended at this time Patient has significant arthritic changes noted throughout the cervical and thoracic spine. Patient's neuroforaminal stenosis present in the lumbar spine I feel is not acutely contributing to his recent falls. Patient's exam demonstrates adequate strength to the bilateral upper and lower extremities. Conservative measures to consist of Tylenol versus an oral NSAID if cardiology is okay with this. Would recommend that patient continue to utilize his walker for ambulation. Recommend follow-up in the outpatient setting in the next 2 to 3 weeks for recheck, our follow-up information will be placed in chart. Please contact our service with any further questions regarding this patient. Time with Patient: Less than 30
[2024-05-01 13:46] VITALS: BP 107/49; PULSE 62; RESP 17
--- NOTE | 2024-05-01 14:19 | P.PN ---
Subjective Progress Note Date: 05/01/24 Reason for Consult (text): Irregular heart rhythms/V. tach runs History of present illness: This is a 78-year-old male patient of Dr. EVA Pritchett with past medical history of ischemic cardiomyopathy with previous multivessel PCI and bypass surgery, paroxy smal atrial fibrillation, hypertension, hyperlipidemia, diabetes mellitus type 2, chronic kidney disease. We have been asked to evaluate the patient for irregular heartbeat, V. tach runs. Patient gives history of over the past 3 years having multiple falls. He states he had 4-5 significant falls. He states if he tries to walk more than three quarters of a mile he starts getting dizzy and he may fall. This has happened several times while he is doing yard work where he this and becomes dizzy and falls. He did this recently and that was the reason he came into the hospital on 04/23. He was found to have multiple left-sided rib fractures. This morning he had episodes of V. tach but patient states he was in bed at the time did not feel any palpitations, no lightheadedness or dizziness. However, he does state that often times early in the morning he can hear his heartbeat in his head lasting for about 15 to 20 minutes. No new chest pain at this time. Blood pressure 132/64, heart rate 66, pulse ox 92% on room air. EKG: Sinus rhythm with first-degree block Chest x-ray:Performed on 04/28 reveals no acute process. Laboratory studies: WBC 6, hemoglobin 9.9. Electrolytes and renal function within normal limits. TSH 1.7. A1c 6.2. Initial creatinine 2.14. Home cardiac medications: Eliquis 5 mg twice daily, atorvastatin 40 mg daily, Lasix 40 mg twice daily, Imdur 30 mg daily, losartan 25 mg daily, Lopressor 12.5 mg twice daily, Aldactone 25 mg daily. Note that patient is not currently on his home dose of Lasix, losartan, Aldactone. Cardiac catheterization 03/19/2021 revealed normal filling pressures, total occlusion of the LAD and RCA, vein graft to the OM and PDA of the RCA are patent. INTERVENTIONAL TECHNOLOGIST actually feels from the mid LAD segment, RODRIGUES to LAD patent but to the distal LAD flow improved with nitroglycerin. CV surgery 2018: RODRIGUES to LAD, VG to circumflex, and PDA branch of the RCA Echocardiogram performed 03/08/2023 reveals EF 40%, small akinetic area of the inferior septal region from the mid wall to the apex and anterior wall at the apex, mild AR, mild to moderate MR and TR, RVSP 41. Lexiscan stress test performed 02/28/2024 was nondiagnostic electrocardiographic stress testing. Abnormal myocardial perfusion imaging with a large prior myoc ardial infarction involving the anterior apical and anterior septal wall with impaired left ventricular systolic function consistent with prior KS in the LAD territory. Event monitor 03/22/2023 revealed sinus rhythm with average heart rate 54 bpm. No significant arrhythmias. No A-fib. 4 beat run of V. tach and asymptomatic. 04/30/2024 Patient seen and examined. Yesterday, we increased frequency of Lopressor 12.5 mg to 3 times daily. Overnight, patient did not have any further episodes of V. tach. Patient denies having any chest pain, palpitations, lightheadedness or dizziness. Echocardiogram report is pending. Troponins negative x 2. Hemoglobin 9.6, creatinine 1.2. Patient is scheduled for MRI today. We are planning on event monitor prior to discharge. It does not appear the patient will be going home today. 05/01 Patient seen and examined. Patient has had no rate episodes of V. tach. He denies having any chest pain no shortness of breath. Blood pressure 117/54, heart rate 57, pulse ox 95% on room air. Repeat blood work reveals hemoglobin 9.7, creatinine 1.3, potassium 4.9. Echocardiogram reveals EF of 20 to 25% with mild ventricular and apical hypokinesia. Moderate mitral regurgitation with intact mitral valve leaflets. MR is secondary to cardiomyopathy. Mild aortic regurgitation with aortic sclerosis and no stenosis. Physical examination: Gen: This is a 78-year-old male in no acute distress VS: reviewed HEENT: Head is atraumatic, normocephalic. Pupils equal, round. Sclerae is anicteric. NECK: Supple. No JVD. LUNGS: Clear to auscultation. No wheezes or rhonchi. No intercostal retractions. HEART: Regular rate and rhythm. Systolic murmur. ABDOMEN: Soft No tenderness. EXTREMITIES: No pedal edema. No calf tenderness. Assessment: SVT, 30 beats Bradycardia Fall Left rib fractures Coronary artery disease with multivessel PCI and bypass surgery Ischemic cardiomyopathy Paroxysmal atrial fibrillation in sinus rhythm Hypertension Hyperlipidemia Diabetes Chronic kidney disease Plan: Continue patient's home cardiac medications Note that Lasix, losartan, Aldactone have not been resumed Continue telemetry monitoring Continue Lopressor 12.5 mg 3 times daily Patient may require an EPS study, may require ICD Ordered 30-day event monitor prior to discharge No further cardiac workup at this time. After discharge, patient will follow-up with Dr. EVA Pritchett and 5 to 6 weeks. Nurse practitioner note has been reviewed, I agree with documented findings and plan of care. Patient was seen and examined. Objective - Vital Signs Vital signs: Vital Signs Temp 97.6 F 05/01/24 08:00 Pulse 57 L 05/01/24 08:00 Resp 16 05/01/24 08:00 BP 117/54 05/01/24 08:00 Pulse Ox 95 05/01/24 08:00 FiO2 Intake & Output 04/30/24 05/01/24 05/01/24 18:59 06:59 18:59 Other: Voiding Method Toilet Toilet # Voids 2 2 1 # Bowel Movements 1 - Labs CBC & Chem 7: 05/01/24 02:59 05/01/24 02:59 Labs: Abnormal Lab Results - Last 24 Hours (Table) 04/30/24 04/30/24 05/01/24 Range/Units 11:48 16:23 02:59 RBC 3.16 L (4.40-5.60) X 10*6/uL Hgb 9.7 L (13.0-17.0) g/dL Hct 30.6 L (39.6-50.0) % MCHC 31.7 L (32.0-37.0) g/dL Est GFR (CKD-EPI) (>=60) Glucose (70-110) mg/dL POC Glucose (mg/dL) 254 H 384 H (70-110) mg/dL Calcium (8.7-10.3) mg/dL 05/01/24 05/01/24 Range/Units 02:59 06:48 RBC (4.40-5.60) X 10*6/uL Hgb (13.0-17.0) g/dL Hct (39.6-50.0) % MCHC (32.0-37.0) g/dL Est GFR (CKD-EPI) 57 L (>=60) Glucose 280 H (70-110) mg/dL POC Glucose (mg/dL) 274 H (70-110) mg/dL Calcium 8.5 L (8.7-10.3) mg/dL
--- NOTE | 2024-05-01 15:17 | P.DS ---
Providers Date of admission: 04/25/24 11:18 Expected date of discharge: 05/01/24 Attending physician: Sudheer Soriano Consults: 04/23/24 22:08 Consult Physician Routine Consulting Provider: [facility] Reason/Comments: Pulmonary Contusion Do you want consulting provider notified?: Yes 04/25/24 12:43 Consult Physician Routine Consulting Provider: [facility] Consult Reason/Comments: altered mental status, fall, hit head Do you want consulting provider notified?: Yes 04/29/24 06:52 Consult Physician Stat Consulting Provider: [facility] Consult Reason/Comments: Irregular heart rhythms/VTACH runs Do you want consulting provider notified?: Yes 05/01/24 10:53 Consult Physician Routine Consulting Provider: Yordan Hale Consult Reason/Comments: Foraminal narrowing in L4-5 and L3-4 Do you want consulting provider notified?: Yes Primary care physician: Jung Bagley Hospital Course: Discharge diagnosis: Multiple Rib fracture, secondary to multiple mechanical falls Altered mental status Arrythmia, SVT Foraminal narrowing of L4-5 and L3-4 on MRI Constipation Insulin-dependent diabetes mellitus STEVIE on CPAP History of CAD with CABG History of BPH Anxiety History of asthma History of asthma Hospital Course: Patient is a 78 year old male with PMH of multiple falls who presented to the ED after a fall. He mentions about a fall a couple days ago that caused him to have rib fractures. Yesterday he had another fall while coming back from the grocery sto re. He was carrying heavy bags in bith his hands.There are 2 steps in his garage. While trying to climb the 2nd stair he felt dizzy and like the room was spinning, lost balance and fell backwards and towards his right side, hitting his head and bruising his ear. He did not lose consciousness, but was not able to get up on his own and was lying on the ground for about 40 minutes. Currently he complains of pain in the left lateral side of the chest that is worsened with deep breathing and coughing. He has had multiple such falls due to feeling dizzy and losing balance and has had fractured ribs in the past as well. Additonally, he mentions being very forgetful lately. Denies fever,chills, headache, shortness of breath, cough, nausea, vomiting. Vitals T 98.2F, P 66 bpm, RR 19, BP 110/55, O2 sat 98% on RA. EKG: sinus rhythm, first degree AV block with [place] 273 ms, poor R wave progression, rate of 63 bpm, QTc 457 ms. Ribs with chest x- ray: Lateral fourth, seventh and eighth rib fractures. A second more anterior eighth rib fracture is present. Chest x-ray: Bilateral lower lobe atelectasis favored over pneumonia, stable right-sided rib fractures. CT head: No acute intracranial process, minimal chronic appearing periventricular white matter ischemic changes and atrophy. CT cervical spine: No acute orders abnormality of cervical spine, degenerative disc changes present C5-C6 and to a lesser degree elsewhere throughout the cervical spine, mild foraminal narrowing is present. Shoulder x-ray: No acute osseous left shoulder abnormality. Labs on presentation: Hemoglobin 7.4, PT 11.1, INR 1, potassium 5.3, BUN 41, creatinine 2.14, glucose 52. In the ED he was treated with morphine, 0.9 normal saline and dextrose. 04/25/24: Patient seen and evaluated bedside today. No acute events overnight. Complains of pain on the left lateral side of the chest. Continues to use the incentive spirometer. Labs today show hemoglobin 10.9, sodium 142, potassium 4.4, A1c 6.2. 04/26/24: Patient seen and examined today. No acute events overnight. Still complains of pain on the left lateral side of the chest. Orthostatic blood pressure sitting 128/65, standing 135/65, supine 138/61. Labs today hemoglobin 10.6, BUN 29.5, creatinine 1.7. 04/27/24: Patient seen and evaluated today. No acute events overnight. Complains of pain on the left lateral side of the chest and in the lower back. Labs today show Folate 14.60, Ammonia <9, TSH 1.7 BUN 27.5, creatinine 1.3, hemoglobin 10.4, hematocrit 32.6. 04/28/2024 Patient was seen and examined today. No issues overnight. Complains of left-sided chest wall pain secondary to rib fractures, remains on room air, afebrile. WBC 5.4, hemoglobin 10.9, platelet 233. BMP unremarkable, creatinine 1.15. UA positive for glucose. Awaiting MRI head and spine tomorrow. 04/29/24: Patient seen and examined today. No acute events overnight. Complains of left-sided chest wall pain secondary to rib fractures but has seen an improvement in his pain. Currently on room air. Labs today show hemoglobin 9.9, MCV 98.7, hematocrit 31.1, calcium 8.4. 04/30/24: Patient seen and everted today at bedside. No acute events overnight. Complains of left-sided chest wall pain especially with deep breathing. Currently saturating well on room air. Labs today show Hb 9.6, Hct 30.2. Yesterday Mg 2.0, troponin I 0.016 x2. EEG done yesterday, Abnormal EEG due to background slowing consistent with mild to moderate encephalopathy. No focal lateralized or epileptiform activity seen. Echocardiogram shows EF 20 to 25%, dilated LV, severely impaired LV systolic function with mid ventricular and apical hypokinesia. Moderate MR secondary to cardiomyopathy. Mild AR with aortic sclerosis and no . 05/01/24: Patient seen and examined today. No acute events overnight. He still has the left sided chest wall pain secondary to rib fractures, but notes an improvement. Hemodynamically stable. MRI brain shows atrophy with chronic appearing periventricular white matter ischemic type changes. MRI of the lumbar spine shows moderate to severe foraminal narrowing within the lower lumbar spine L4-5 and L3-4, diffuse degenerative disc changes through the lumbar spine. Orthopedic surgery were consulted they recommended conservative measures to consist of Tylenol versus an oral NSAID and they would recommend the patient continue to utilize his walker for ambulation. Cardiology recommended an EPS study/ICD. Patient will be discharged today and is advised to be compliant with medications and incentive spirometer. Patient is advised to follow-up with PCP, layboy tender and orthopedic surgeon. Patient seen at bedside today and is feeling good and excited about discharge. Vital signs are reviewed and stable General: nontoxic, no distress, appears at stated age Derm: warm, dry, intact Head: bruise on pinna of the left ear, normocephalic, symmetric Eyes: EOMI, anicteric sclera Mouth: no lip lesion, mucus membranes moist Cardiovascular: S1 S2 reg, no murmur Lungs: CTA bilateral, no rhonchi, no rales, no accessory muscle use Abdominal: soft, non tender to palpation Extremities: No cyanosis, clubbing, or pedal edema. Neuro: Alert, Oriented, Gross neurological examination did not reveal any focal deficits. Psych: well appearing, appropriate affect A total of 30 minutes of time were spent preparing this complex discharge summary. Patient was discharged on 05/01/24 at 1530. Attestation: I have personally seen and examined the patient with Resident, reviewed the documentation and participated and agree with the assessment and plan as written. Moises Ram MD Patient Condition at Discharge: Stable Plan - Discharge Summary New Discharge Prescriptions: New Metoprolol Tartrate [Lopressor] 12.5 mg PO TID 30 Days #90 tab Continue Citalopram Hydrobromide [CeleXA] 40 mg PO DAILY Apixaban [Eliquis] 5 mg PO BID tab Atorvastatin [Lipitor] 40 mg PO DAILY tab Insulin NPH Hum/Reg Insulin Hm [NovoLIN 70-30 100 UNIT/ML VIAL] 32 unit SQ HS Spironolactone [Aldactone] 25 mg PO DAILY Finasteride [Proscar] 5 mg PO DAILY Montelukast [Singulair] 10 mg PO HS Isosorbide Mononitrate ER [Imdur] 30 mg PO DAILY buPROPion HCL [buPROPion HCL XL] 150 mg PO DAILY Insulin NPH Hum/Reg Insulin Hm [NovoLIN 70-30 100 Unit/ml Vial] 42 unit SQ DAILY Meclizine [Antivert] 12.5 mg PO TID PRN PRN Reason: Vertigo Losartan [Cozaar] 25 mg PO DAILY ALPRAZolam [Xanax] 0.25 mg PO TID PRN PRN Reason: Anxiety metFORMIN HCL 1,000 mg PO BID Tamsulosin [Flomax] 0.4 mg PO DAILY Furosemide [Lasix] 40 mg PO BID Fluticasone/Vilanterol [Breo Ellipta 100-25 Mcg Inhalr] 1 puff INHALATION RT- DAILY Dulaglutide [Trulicity] 3 mg SQ Q7D Docusate Sodium [Dok] 100 mg PO BID Discontinued Metoprolol Tartrate [Lopressor] 12.5 mg PO BID Discharge Medication List Citalopram Hydrobromide [CeleXA] 40 mg PO DAILY 03/21/14 [History] Apixaban [Eliquis] 5 mg PO BID tab 01/19/18 [Rx] Atorvastatin [Lipitor] 40 mg PO DAILY tab 01/19/18 [Rx] Insulin NPH Hum/Reg Insulin Hm [NovoLIN 70-30 100 UNIT/ML VIAL] 32 unit SQ HS 02/05/18 [History] Spironolactone [Aldactone] 25 mg PO DAILY 07/06/18 [History] ALPRAZolam [Xanax] 0.25 mg PO TID PRN 03/18/21 [History] Finasteride [Proscar] 5 mg PO DAILY 03/18/21 [History] Montelukast [Singulair] 10 mg PO HS 03/18/21 [History] metFORMIN HCL 1,000 mg PO BID 03/18/21 [History] Isosorbide Mononitrate ER [Imdur] 30 mg PO DAILY 04/21/22 [History] buPROPion HCL [buPROPion HCL XL] 150 mg PO DAILY 04/21/22 [History] Furosemide [Lasix] 40 mg PO BID 10/11/22 [History] Insulin NPH Hum/Reg Insulin Hm [NovoLIN 70-30 100 Unit/ml Vial] 42 unit SQ DAILY 10/11/22 [History] Tamsulosin [Flomax] 0.4 mg PO DAILY 10/11/22 [History] Docusate Sodium [Dok] 100 mg PO BID 04/24/24 [History] Dulaglutide [Trulicity] 3 mg SQ Q7D 04/24/24 [History] Fluticasone/Vilanterol [Breo Ellipta 100-25 Mcg Inhalr] 1 puff INHALATION RT- DAILY 04/24/24 [History] Losartan [Cozaar] 25 mg PO DAILY 04/24/24 [History] Meclizine [Antivert] 12.5 mg PO TID PRN 04/24/24 [History] Metoprolol Tartrate [Lopressor] 12.5 mg PO TID 30 Days #90 tab 05/01/24 [Rx] Follow up Appointment(s)/Referral(s): Jung Bagley MD [Primary Care Provider] - 1-2 days [facility], [NON-STAFF] - As Needed (You will have to see prior to having home care. Once you follow with him, [facility] can follow with you at home.) Elaine Pritchett MD [STAFF PHYSICIAN] - 6 Weeks Roque Thompson PAC [PHYSICIAN INVENTORY CONTROL CLERK] - 2 Weeks Discharge Disposition: HOME WITH HOME HEALTH SERVICES
== END 2024-05-01 16:00 | disposition home or self-care (01) | DRG 183 ==
LOC: EC 17:37 → 3SCARD 22:33 → 4SSUR 04-24 16:53 → OBSVTOIN 04-25 11:18
PROVIDERS: ADMIT Hospitalist; ATTEND Hospitalist
DX: S22.42XA Multiple fractures of ribs, left side, initial encounter for closed fracture (principal); G93.41 Metabolic encephalopathy; J98.11 Atelectasis; N17.9 Acute kidney failure, unspecified; I47.20 Ventricular tachycardia, unspecified; I47.10 Supraventricular tachycardia, unspecified; I25.5 Ischemic cardiomyopathy; G31.9 Degenerative disease of nervous system, unspecified; J98.6 Disorders of diaphragm; I12.9 Hypertensive chronic kidney disease with stage 1 through stage 4 chronic kidney disease, or unspecified chronic kidney disease; E11.22 Type 2 diabetes mellitus with diabetic chronic kidney disease; N18.30 Chronic kidney disease, stage 3 unspecified; E11.40 Type 2 diabetes mellitus with diabetic neuropathy, unspecified; I48.0 Paroxysmal atrial fibrillation; Z79.4 Long term (current) use of insulin; J45.909 Unspecified asthma, uncomplicated; F32.9 Major depressive disorder, single episode, unspecified; I35.8 Other nonrheumatic aortic valve disorders; I44.0 Atrioventricular block, first degree; S40.012A Contusion of left shoulder, initial encounter; I25.10 Atherosclerotic heart disease of native coronary artery without angina pectoris; E78.5 Hyperlipidemia, unspecified; F41.9 Anxiety disorder, unspecified; I25.2 Old myocardial infarction; K59.00 Constipation, unspecified; G47.33 Obstructive sleep apnea (adult) (pediatric); G89.29 Other chronic pain; R09.02 Hypoxemia; R29.6 Repeated falls; N40.0 Benign prostatic hyperplasia without lower urinary tract symptoms; M47.812 Spondylosis without myelopathy or radiculopathy, cervical region; M47.816 Spondylosis without myelopathy or radiculopathy, lumbar region; M48.061 Spinal stenosis, lumbar region without neurogenic claudication; M51.369 Other intervertebral disc degeneration, lumbar region without mention of lumbar back pain or lower extremity pain; Z85.46 Personal history of malignant neoplasm of prostate; Z92.3 Personal history of irradiation; Z86.73 Personal history of transient ischemic attack (TIA), and cerebral infarction without residual deficits; Z95.5 Presence of coronary angioplasty implant and graft; Z95.1 Presence of aortocoronary bypass graft; Z91.81 History of falling; Z79.01 Long term (current) use of anticoagulants; Z79.84 Long term (current) use of oral hypoglycemic drugs; Z79.85 Long-term (current) use of injectable non-insulin antidiabetic drugs; Z79.51 Long term (current) use of inhaled steroids; Z79.899 Other long term (current) drug therapy; W10.8XXA Fall (on) (from) other stairs and steps, initial encounter; Y92.009 Unspecified place in unspecified non-institutional (private) residence as the place of occurrence of the external cause
CPT/HCPCS: 36415; 70450; 70551; 71045; 72125; 72148; 80048; 80053; 81003; 82140; 82550; 82552; 82607; 82746; 83036; 83605; 83735; 84443; 84484; 85025; 85027; 85610; 85730; 93005; 93306; 95816; 96361; 96374; 96375; 99285

== ENCOUNTER → 2024-05-14 | Outpatient (CLI) | payer MEDICARE, BC ==
--- NOTE | 2024-05-14 17:23 | XR ---
EXAMINATION TYPE: XR ribs bilat w pa chest xray DATE OF EXAM: 05/14/2024 5:12 PM COMPARISON: Previous chest radiograph 04/28/2024. CLINICAL INDICATION: Male, 78 years old with history of S22.41XA; [facility] TECHNIQUE: XR ribs bilat w pa chest xray; Frontal and oblique views of the ribs with frontal chest ra diograph. FINDINGS: Cardiomegaly. Atrial septal occlusion device noted. Median sternotomy wires. Nondisplaced fracture of the right lateral ninth rib. Mildly displaced fractures of the right lateral seventh and eighth ribs . Likely nondisplaced fracture of the right lateral sixth rib. Nondisplaced fracture of the left late ral ninth rib. Displaced fractures of the left lateral fifth-eighth ribs. No associated pneumothorax. No sizable pleural effusion. Bibasilar atelectasis. IMPRESSION: Numerous displaced and nondisplaced bilateral rib fractures. No associated pneumothorax. [facility], , 05/14/2024 5:20 PM
== END | disposition home or self-care (01) ==
LOC: RADXRMAIN 16:08
PROVIDERS: ATTEND Nurse Practitioner Family
DX: S22.43XA Multiple fractures of ribs, bilateral, initial encounter for closed fracture (principal)
CPT/HCPCS: 71111

== ENCOUNTER 2024-07-02 01:37 | Emergency (ER) | payer MEDICARE, BC ==
[2024-07-02 01:40] VITALS: TEMP 97.8
--- NOTE | 2024-07-02 01:43 | ED ---
Altered Mental Status HPI - General Chief Complaint: Altered Mental Status Stated Complaint: AMS Time Seen by Provider: 07/02/24 01:38 Source: EMS, RN notes reviewed, old records reviewed Mode of arrival: EMS Limitations: no limitations - History of Present Illness Initial Comments: This is a 79-year-old male to the ER for evaluation patient presents today for evaluation of altered mental status unresponsiveness hypertension presents that way today here in the ER. Patient combative and agitated during transport but appears to be calm currently, patient remains altered strong history of heart and stroke a is on Eliquis, blood thinner MD Complaint: altered mental status, confusion -: hour(s) Severity: mild Consistency of Symptoms: waxing and waning Associated Symptoms: denies other symptoms Treatments Prior to Arrival: IV fluid - Related Data Home Medications Medication Instructions Recorded Confirmed Citalopram Hydrobromide [CeleXA] 40 mg PO DAILY 03/21/14 04/24/24 Insulin NPH Hum/Reg Insulin Hm 32 unit SQ HS 02/05/18 04/24/24 [NovoLIN 70-30 100 UNIT/ML VIAL] Spironolactone [Aldactone] 25 mg PO DAILY 07/06/18 04/24/24 ALPRAZolam [Xanax] 0.25 mg PO TID PRN 03/18/21 04/24/24 Finasteride [Proscar] 5 mg PO DAILY 03/18/21 04/24/24 Montelukast [Singulair] 10 mg PO HS 03/18/21 04/24/24 metFORMIN HCL 1,000 mg PO BID 03/18/21 04/24/24 Isosorbide Mononitrate ER [Imdur] 30 mg PO DAILY 04/21/22 04/24/24 buPROPion HCL [buPROPion HCL XL] 150 mg PO DAILY 04/21/22 04/24/24 Furosemide [Lasix] 40 mg PO BID 10/11/22 04/24/24 Insulin NPH Hum/Reg Insulin Hm 42 unit SQ DAILY 10/11/22 04/24/24 [NovoLIN 70-30 100 Unit/ml Vial] Tamsulosin [Flomax] 0.4 mg PO DAILY 10/11/22 04/24/24 Docusate Sodium [Dok] 100 mg PO BID 04/24/24 04/24/24 Dulaglutide [Trulicity] 3 mg SQ Q7D 04/24/24 04/24/24 Fluticasone/Vilanterol [Breo 1 puff INHALATION RT-DAILY 04/24/24 04/24/24 Ellipta 100-25 Mcg Inhalr] Losartan [Cozaar] 25 mg PO DAILY 04/24/24 04/24/24 Meclizine [Antivert] 12.5 mg PO TID PRN 04/24/24 04/24/24 Previous Rx's Medication Instructions Recorded Apixaban [Eliquis] 5 mg PO BID tab 01/19/18 Atorvastatin [Lipitor] 40 mg PO DAILY tab 01/19/18 Metoprolol Tartrate [Lopressor] 12.5 mg PO TID 30 Days #90 tab 05/01/24 Allergies Allergy/AdvReac Type Severity Reaction Status Date / Time No Known Allergies Allergy Verified 04/24/24 08:07 Review of Systems ROS Statement: Those systems with pertinent positive or pertinent negative responses have been documented in the HPI. ROS Other: All systems not noted in ROS Statement are negative. Past Medical History Past Medical History: Asthma, Coronary Artery Disease (CAD), Cancer, CVA/TIA, Di abetes Mellitus, Hyperlipidemia, Hypertension, Myocardial Infarction (SD), Prostate Disorder Additional Past Medical History / Comment(s): pos occult stool,hx SOME UPPER RIGHT CHEST PAIN. HX OF TIA, ENLARGED PROSTATE, SD X3, Prostate CA Last Myocardial Infarction Date:: 10/01/2011 History of Any Multi-Drug Resistant Organisms: None Reported Past Surgical History: Coronary Bypass/CABG, Heart Catheterization With Stent, Hernia Repair Additional Past Surgical History / Comment(s): INGUINAL HERNIA, RT HEEL SURGERY WITH HARDWARE. BILATERAL CATARACTS.CABG-3 vessels Past Anesthesia/Blood Transfusion Reactions: No Reported Reaction Additional Past Anesthesia/Blood Transfusion Reaction / Comment(s): no hx blood transfusion Date of Last Stent Placement:: 10/01/2011 Past Psychological History: Anxiety, Depression Smoking Status: Never smoker Past Alcohol Use History: None Reported Past Drug Use History: None Reported - Past Family History Mother Family Medical History: Cancer, Diabetes Mellitus Additional Family Medical History / Comment(s): pancreas Father Family Medical History: Cancer General Exam General appearance: alert, in no apparent distress Head exam: Present: atraumatic, normocephalic, normal inspection Eye exam: Present: normal appearance, PERRL, EOMI. Absent: scleral icterus, conjunctival injection, periorbital swelling ENT exam: Present: normal exam, mucous membranes moist Neck exam: Present: normal inspection. Absent: tenderness, meningismus, lymphadenopathy Respiratory exam: Present: normal lung sounds bilaterally. Absent: respiratory distress, wheezes, rales, rhonchi, stridor Cardiovascular Exam: Present: regular rate, normal rhythm, normal heart sounds. Absent: systolic murmur, diastolic murmur, rubs, gallop, clicks GI/Abdominal exam: Present: soft, normal bowel sounds. Absent: distended, tenderness, guarding, rebound, rigid Extremities exam: Present: normal inspection, full ROM, normal capillary refill. Absent: tenderness, pedal edema, joint swelling, calf tenderness Back exam: Present: normal inspection Neurological exam: Present: alert, oriented X3, CN II-XII intact Psychiatric exam: Present: normal affect, normal mood Skin exam: Present: warm, dry, intact, normal color. Absent: rash Course Vital Signs 07/02/24 07/02/24 01:38 02:51 Temperature 97.8 F Pulse Rate 60 60 Respiratory 18 24 Rate Blood Pressure 135/66 121/53 O2 Sat by Pulse 94 L 97 Oximetry - Reevaluation(s) Reevaluation #1: 07/02/24 01:54 Reviewed Reevaluation #4: Was pt. sent in by a medical professional or institution (, PA, CHIEF OPERATOR LOCK TENDER, urgent care, hospital, or group home...) When possible be specific @ -no Did you speak to anyone other than the patient for history (EMS, parent, family, police, friend...)? What history was obtained from this source @ -no Did you review nursing and triage notes (agree or disagree)? Why? @ -agree Are old charts reviewed (outside hosp., previous admission, EMS record, old EKG, old radiological studies, urgent care reports/EKG's, group home records)? Report findings @ -yes Differential Diagnosis (chest pain, altered mental status, abdominal pain women, abdominal pain men, vaginal bleeding, weakness, fever, dyspnea, syncope, headache, dizziness, GI bleed, back pain, seizure, CVA, palpatations, mental health, musculoskeletal)? @ -prior EKG interpreted by me (3pts min.). @ -yes X-rays interpreted by me (1pt min.). @ -yes negative for acute disease CT interpreted by me (1pt min.). @ -no U/S interpreted by me (1pt. min.). @ -no What testing was considered but not performed or refused? (CT, X-rays, U/S, labs)? Why? @ -none What meds were considered but not given or refused? Why? @ -none Did you discuss the management of the patient with other professionals (professionals i.e. , PA, CHIEF OPERATOR LOCK TENDER, lab, RT, psych nurse, case management social worker, postdoctoral scientist, teacher, space officer, case management social worker)? Give summary @ -no Was smoking cessation discussed for >3mins.? @ -no Was critical care preformed (if so, how long)? @ -no Were there social determinants of health that impacted care today? How? (Homelessness, low income, unemployed, alcoholism, drug addiction, transportation, low edu. Level, literacy, decrease access to med. care, penitentiary, rehab)? @ -none Was there de-escalation of care discussed even if they declined (Discuss DNR or withdrawal of care, Hospice)? DNR status @ -no What co-morbidities impacted this encounter? (DM, HTN, Smoking, COPD, CAD, Cancer, CVA, ARF, Chemo, Hep., AIDS, mental health diagnosis, sleep apnea, morbid obesity)? @ -none Was patient admitted / discharged? Hospital course, mention meds given and route, prescriptions, significant lab abnormalities, going to OR and other pertinent info. @ - Undiagnosed new problem with uncertain prognosis? @ -no Drug Therapy requiring intensive monitoring for toxicity (Heparin, Nitro, Insulin, Cardizem)? @ -no Were any procedures done? @ -no Diagnosis/symptom? @ - Acute, or Chronic, or Acute on Chronic? @ -Acute Uncomplicated (without systemic symptoms) or Complicated (systemic symptoms)? @ -Complicated Side effects of treatment? @ -no Exacerbation, Progression, or Severe Exacerbation? @ -exacerbation Poses a threat to life or bodily function? How? (Chest pain, USA, SD, pneumonia, PE, COPD, DKA, ARF, appy, cholecystitis, CVA, Diverticulitis, Homicidal, Suicidal, threat to staff... and all critical care pts) @ -yes Reevaluation #5: Differential Altered Mental Status: Hypoglycemia, DKA, hypercapnia, ETOH, overdose, CO poisoning, trauma, myxedema coma, HTN encephalopathy, infection, encephalitis, psychosis, intercranial hemorrhage, hepatic encephalopathy, meningitis, CVA, this is not meant to be an all-inclusive list Medical Decision Making - Lab Data Result diagrams: 07/02/24 01:55 07/02/24 01:55 Lab Results 07/02/24 07/02/24 07/02/24 Range/Units 01:52 01:55 01:55 WBC 9.3 (3.8-10.6) k/uL RBC 4.23 L (4.30-5.90) m/uL Hgb 13.1 (13.0-17.5) gm/dL Hct 40.1 (39.0-53.0) % MCV 94.8 (80.0-100.0) fL MCH 31.0 (25.0-35.0) pg MCHC 32.7 (31.0-37.0) g/dL RDW 11.7 (11.5-15.5) % Plt Count 259 (150-450) k/uL MPV 8.6 Neutrophils % 80 % Lymphocytes % 10 % Monocytes % 6 % Eosinophils % 2 % Basophils % 0 % Neutrophils # 7.4 (1.3-7.7) k/uL Lymphocytes # 1.0 (1.0-4.8) k/uL Monocytes # 0.6 (0-1.0) k/uL Eosinophils # 0.2 (0-0.7) k/uL Basophils # 0.0 (0-0.2) k/uL PT 11.6 (10.0-12.5) sec INR 1.1 (<1.2) APTT 25.0 (22.0-30.0) sec VBG pH (7.31-7.41) VBG pCO2 (37-51) mmHg VBG HCO3 (24-28) mmol/L Sodium (137-145) mmol/L Potassium (3.5-5.1) mmol/L Chloride (98-107) mmol/L Carbon Dioxide (22-30) mmol/L Anion Gap mmol/L BUN (9-20) mg/dL Creatinine (0.66-1.25) mg/dL Est GFR (CKD-EPI)AfAm (>60 ml/min/1.73 sqM) Est GFR (CKD-EPI)NonAf (>60 ml/min/1.73 sqM) Glucose (74-99) mg/dL POC Glucose (mg/dL) 107 (70-110) mg/dL POC Glu [employer] Tutor ID Damaris Jim Lactic Ac Sepsis Rflx Plasma Lactic Acid Rei (0.7-2.0) mmol/L Calcium (8.4-10.2) mg/dL Phosphorus (2.5-4.5) mg/dL Magnesium (1.6-2.3) mg/dL Total Bilirubin (0.2-1.3) mg/dL AST (17-59) U/L ALT (4-49) U/L Alkaline Phosphatase (38-126) U/L Troponin I (0.000-0.034) ng/mL NT-Pro-B Natriuret Pep pg/mL Total Protein (6.3-8.2) g/dL Albumin (3.5-5.0) g/dL TSH (0.465-4.680) mIU/L Urine Color Urine Appearance (Clear) Urine pH (5.0-8.0) Ur Specific [place] (1.001-1.035) Urine Protein (Negative) Urine Glucose (UA) (Negative) Urine Ketones (Negative) Urine Blood (Negative) Urine Nitrite (Negative) Urine Bilirubin (Negative) Urine Urobilinogen (<2.0) mg/dL Ur Leukocyte Esterase (Negative) Urine RBC (0-5) /hpf Urine WBC (0-5) /hpf Urine Bacteria (None) /hpf 07/02/24 07/02/24 07/02/24 Range/Units 01:55 01:55 01:55 WBC (3.8-10.6) k/uL RBC (4.30-5.90) m/uL Hgb (13.0-17.5) gm/dL Hct (39.0-53.0) % MCV (80.0-100.0) fL MCH (25.0-35.0) pg MCHC (31.0-37.0) g/dL RDW (11.5-15.5) % Plt Count (150-450) k/uL MPV Neutrophils % % Lymphocytes % % Monocytes % % Eosinophils % % Basophils % % Neutrophils # (1.3-7.7) k/uL Lymphocytes # (1.0-4.8) k/uL Monocytes # (0-1.0) k/uL Eosinophils # (0-0.7) k/uL Basophils # (0-0.2) k/uL PT (10.0-12.5) sec INR (<1.2) APTT (22.0-30.0) sec VBG pH (7.31-7.41) VBG pCO2 (37-51) mmHg VBG HCO3 (24-28) mmol/L Sodium 136 L (137-145) mmol/L Potassium 4.2 (3.5-5.1) mmol/L Chloride 103 (98-107) mmol/L Carbon Dioxide 26 (22-30) mmol/L Anion Gap 7 mmol/L BUN 27 H (9-20) mg/dL Creatinine 1.70 H (0.66-1.25) mg/dL Est GFR (CKD-EPI)AfAm 44 (>60 ml/min/1.73 sqM) Est GFR (CKD-EPI)NonAf 38 (>60 ml/min/1.73 sqM) Glucose 35 L* (74-99) mg/dL POC Glucose (mg/dL) (70-110) mg/dL POC Glu [facility] ID Lactic Ac Sepsis Rflx Plasma Lactic Acid Rei 2.1 H* (0.7-2.0) mmol/L Calcium 9.2 (8.4-10.2) mg/dL Phosphorus 3.9 (2.5-4.5) mg/dL Magnesium 2.3 (1.6-2.3) mg/dL Total Bilirubin 0.3 (0.2-1.3) mg/dL AST 19 (17-59) U/L ALT 14 (4-49) U/L Alkaline Phosphatase 93 (38-126) U/L Troponin I <0.012 (0.000-0.034) ng/mL NT-Pro-B Natriuret Pep 844 pg/mL Total Protein 6.3 (6.3-8.2) g/dL Albumin 3.9 (3.5-5.0) g/dL TSH 2.030 (0.465-4.680) mIU/L Urine Color Urine Appearance (Clear) Urine pH (5.0-8.0) Ur Specific [place] (1.001-1.035) Urine Protein (Negative) Urine Glucose (UA) (Negative) Urine Ketones (Negative) Urine Blood (Negative) Urine Nitrite (Negative) Urine Bilirubin (Negative) Urine Urobilinogen (<2.0) mg/dL Ur Leukocyte Esterase (Negative) Urine RBC (0-5) /hpf Urine WBC (0-5) /hpf Urine Bacteria (None) /hpf 07/02/24 07/02/24 07/02/24 Range/Units 02:07 02:34 02:40 WBC (3.8-10.6) k/uL RBC (4.30-5.90) m/uL Hgb (13.0-17.5) gm/dL Hct (39.0-53.0) % MCV (80.0-100.0) fL MCH (25.0-35.0) pg MCHC (31.0-37.0) g/dL RDW (11.5-15.5) % Plt Count (150-450) k/uL MPV Neutrophils % % Lymphocytes % % Monocytes % % Eosinophils % % Basophils % % Neutrophils # (1.3-7.7) k/uL Lymphocytes # (1.0-4.8) k/uL Monocytes # (0-1.0) k/uL Eosinophils # (0-0.7) k/uL Basophils # (0-0.2) k/uL PT (10.0-12.5) sec INR (<1.2) APTT (22.0-30.0) sec VBG pH 7.31 (7.31-7.41) VBG pCO2 55 H (37-51) mmHg VBG HCO3 28 (24-28) mmol/L Sodium (137-145) mmol/L Potassium (3.5-5.1) mmol/L Chloride (98-107) mmol/L Carbon Dioxide (22-30) mmol/L Anion Gap mmol/L BUN (9-20) mg/dL Creatinine (0.66-1.25) mg/dL Est GFR (CKD-EPI)AfAm (>60 ml/min/1.73 sqM) Est GFR (CKD-EPI)NonAf (>60 ml/min/1.73 sqM) Glucose (74-99) mg/dL POC Glucose (mg/dL) 214 H (70-110) mg/dL POC Glu [employer] Tutor ID Efrem Medeiros Lactic Ac Sepsis Rflx Y Plasma Lactic Acid Rei (0.7-2.0) mmol/L Calcium (8.4-10.2) mg/dL Phosphorus (2.5-4.5) mg/dL Magnesium (1.6-2.3) mg/dL Total Bilirubin (0.2-1.3) mg/dL AST (17-59) U/L ALT (4-49) U/L Alkaline Phosphatase (38-126) U/L Troponin I (0.000-0.034) ng/mL NT-Pro-B Natriuret Pep pg/mL Total Protein (6.3-8.2) g/dL Albumin (3.5-5.0) g/dL TSH (0.465-4.680) mIU/L Urine Color Urine Appearance (Clear) Urine pH (5.0-8.0) Ur Specific [place] (1.001-1.035) Urine Protein (Negative) Urine Glucose (UA) (Negative) Urine Ketones (Negative) Urine Blood (Negative) Urine Nitrite (Negative) Urine Bilirubin (Negative) Urine Urobilinogen (<2.0) mg/dL Ur Leukocyte Esterase (Negative) Urine RBC (0-5) /hpf Urine WBC (0-5) /hpf Urine Bacteria (None) /hpf 07/02/24 07/02/24 07/02/24 Range/Units 03:08 03:48 04:00 WBC (3.8-10.6) k/uL RBC (4.30-5.90) m/uL Hgb (13.0-17.5) gm/dL Hct (39.0-53.0) % MCV (80.0-100.0) fL MCH (25.0-35.0) pg MCHC (31.0-37.0) g/dL RDW (11.5-15.5) % Plt Count (150-450) k/uL MPV Neutrophils % % Lymphocytes % % Monocytes % % Eosinophils % % Basophils % % Neutrophils # (1.3-7.7) k/uL Lymphocytes # (1.0-4.8) k/uL Monocytes # (0-1.0) k/uL Eosinophils # (0-0.7) k/uL Basophils # (0-0.2) k/uL PT (10.0-12.5) sec INR (<1.2) APTT (22.0-30.0) sec VBG pH (7.31-7.41) VBG pCO2 (37-51) mmHg VBG HCO3 (24-28) mmol/L Sodium (137-145) mmol/L Potassium (3.5-5.1) mmol/L Chloride (98-107) mmol/L Carbon Dioxide (22-30) mmol/L Anion Gap mmol/L BUN (9-20) mg/dL Creatinine (0.66-1.25) mg/dL Est GFR (CKD-EPI)AfAm (>60 ml/min/1.73 sqM) Est GFR (CKD-EPI)NonAf (>60 ml/min/1.73 sqM) Glucose (74-99) mg/dL POC Glucose (mg/dL) 135 H 103 (70-110) mg/dL POC Glu [employer]utor ID Efrem Medeiros Lactic Ac Sepsis Rflx Plasma Lactic Acid Rei (0.7-2.0) mmol/L Calcium (8.4-10.2) mg/dL Phosphorus (2.5-4.5) mg/dL Magnesium (1.6-2.3) mg/dL Total Bilirubin (0.2-1.3) mg/dL AST (17-59) U/L ALT (4-49) U/L Alkaline Phosphatase (38-126) U/L Troponin I (0.000-0.034) ng/mL NT-Pro-B Natriuret Pep pg/mL Total Protein (6.3-8.2) g/dL Albumin (3.5-5.0) g/dL TSH (0.465-4.680) mIU/L Urine Color Light Red Urine Appearance Cloudy (Clear) Urine pH 5.5 (5.0-8.0) Ur Specific [place] 1.015 (1.001-1.035) Urine Protein 1+ H (Negative) Urine Glucose (UA) Negative (Negative) Urine Ketones Negative (Negative) Urine Blood Large H (Negative) Urine Nitrite Negative (Negative) Urine Bilirubin Negative (Negative) Urine Urobilinogen <2.0 (<2.0) mg/dL Ur Leukocyte Esterase Moderate H (Negative) Urine RBC >182 H (0-5) /hpf Urine WBC 34 H (0-5) /hpf Urine Bacteria Moderate H (None) /hpf 07/02/24 Range/Units 04:50 WBC (3.8-10.6) k/uL RBC (4.30-5.90) m/uL Hgb (13.0-17.5) gm/dL Hct (39.0-53.0) % MCV (80.0-100.0) fL MCH (25.0-35.0) pg MCHC (31.0-37.0) g/dL RDW (11.5-15.5) % Plt Count (150-450) k/uL MPV Neutrophils % % Lymphocytes % % Monocytes % % Eosinophils % % Basophils % % Neutrophils # (1.3-7.7) k/uL Lymphocytes # (1.0-4.8) k/uL Monocytes # (0-1.0) k/uL Eosinophils # (0-0.7) k/uL Basophils # (0-0.2) k/uL PT (10.0-12.5) sec INR (<1.2) APTT (22.0-30.0) sec VBG pH (7.31-7.41) VBG pCO2 (37-51) mmHg VBG HCO3 (24-28) mmol/L Sodium (137-145) mmol/L Potassium (3.5-5.1) mmol/L Chloride (98-107) mmol/L Carbon Dioxide (22-30) mmol/L Anion Gap mmol/L BUN (9-20) mg/dL Creatinine (0.66-1.25) mg/dL Est GFR (CKD-EPI)AfAm (>60 ml/min/1.73 sqM) Est GFR (CKD-EPI)NonAf (>60 ml/min/1.73 sqM) Glucose (74-99) mg/dL POC Glucose (mg/dL) 100 (70-110) mg/dL POC Glu [employer] Tutor ID Damaris Jim Lactic Ac Sepsis Rflx Plasma Lactic Acid Rei (0.7-2.0) mmol/L Calcium (8.4-10.2) mg/dL Phosphorus (2.5-4.5) mg/dL Magnesium (1.6-2.3) mg/dL Total Bilirubin (0.2-1.3) mg/dL AST (17-59) U/L ALT (4-49) U/L Alkaline Phosphatase (38-126) U/L Troponin I (0.000-0.034) ng/mL NT-Pro-B Natriuret Pep pg/mL Total Protein (6.3-8.2) g/dL Albumin (3.5-5.0) g/dL TSH (0.465-4.680) mIU/L Urine Color Urine Appearance (Clear) Urine pH (5.0-8.0) Ur Specific [place] (1.001-1.035) Urine Protein (Negative) Urine Glucose (UA) (Negative) Urine Ketones (Negative) Urine Blood (Negative) Urine Nitrite (Negative) Urine Bilirubin (Negative) Urine Urobilinogen (<2.0) mg/dL Ur Leukocyte Esterase (Negative) Urine RBC (0-5) /hpf Urine WBC (0-5) /hpf Urine Bacteria (None) /hpf - EKG Data -: EKG Interpreted by Me (EKG is sinus 63 NC 258 QRS 104 QTc 400) Disposition Clinical Impression: Altered mental status, Hypoglycemia Disposition: HOME SELF-CARE Condition: Good Instructions (If sedation given, give patient instructions): Hypoglycemia in a Person with Diabetes (ED) Is patient prescribed a controlled substance at d/c from ED?: No Referrals: Pedro Noland MD [Primary Care Provider] - 1-2 days Time of Disposition: 05:00
[2024-07-02] MEDS: SODIUM CHLORIDE 0.9% 1,000 ML IV STA (01:50)
[2024-07-02] MEDS: ONDANSETRON 4 MG/2 ML VIAL IVP STA (01:51)
[2024-07-02] MEDS: LORazepam 2 MG/ML INJ IV STA (01:51)
[2024-07-02 01:55] LABS: Glucose,Whole Blood 107 mg/dL (70-110)
--- NOTE | 2024-07-02 02:09 | CT ---
EXAM: CT Head Without Intravenous Contrast CLINICAL HISTORY: ITS.REASON CT Reason: weakness TECHNIQUE: Axial computed tomography images of the head/brain without intravenous contrast. CTDI is 47.1 mGy and DLP is 1347.4 mGy-cm. This CT exam was performed using one or more of the following dose reduction techniques: automated exposure control, adjustment of the mA and/or kV according to patient size, and/or use of iterative reconstruction technique. COMPARISON: 04/26/24 FINDINGS: Brain: Generalized parenchymal volume loss. Mild chronic small vessel ischemic change. Blair-white matter differentiation maintained. No hemorrhage, mass effect, parenchymal edema, or midline shift. Chronic lacunar infarct right basal ganglia. Ventricles: Unremarkable. No hydrocephalus. Bones/joints: Unremarkable. No acute fracture. Soft tissues: Unremarkable. Vasculature: Intracranial atherosclerosis. Sinuses: Unremarkable as visualized. Mastoid air cells: Unremarkable as visualized. No mastoid effusion. Orbits: Lens replacements. IMPRESSION: No acute intracranial process.
[2024-07-02 02:15] LABS: Basophils % (A) 0 %; Eosinophils # (A) 0.2 k/uL (0-0.7); Eosinophils % (A) 2 %; HCT 40.1 % (39.0-53.0); HGB 13.1 gm/dL (13.0-17.5); Lymphocytes % (A) 10 %; MCHC 32.7 g/dL (31.0-37.0); MCV 94.8 fL (80.0-100.0); Mean Platelet Volume 8.6; Monocytes # (A) 0.6 k/uL (0-1.0); Monocytes % (A) 6 %; Neutrophils # (A) 7.4 k/uL (1.3-7.7); Neutrophils % (A) 80 %; Platelet Count 259 k/uL (150-450); RBC 4.23 m/uL (4.30-5.90); RDW 11.7 % (11.5-15.5); WBC 9.3 k/uL (3.8-10.6)
[2024-07-02 02:20] LABS: ALT 14 U/L (4-49); AST 19 U/L (17-59); African American GFR (CKD) 44 (>60 ml/min/1.73 sqM); Albumin 3.9 g/dL (3.5-5.0); Alkaline Phosphatase 93 U/L (38-126); Anion Gap 7 mmol/L; Blood Urea Nitrogen 27 mg/dL (9-20); Calcium 9.2 mg/dL (8.4-10.2); Carbon Dioxide 26 mmol/L (22-30); Chloride 103 mmol/L (98-107); Magnesium 2.3 mg/dL (1.6-2.3); Non-African American GFR(CKD) 38 (>60 ml/min/1.73 sqM); Phosphorus 3.9 mg/dL (2.5-4.5); Potassium 4.2 mmol/L (3.5-5.1); Sodium 136 mmol/L (137-145); Total Bilirubin 0.3 mg/dL (0.2-1.3); Total Protein 6.3 g/dL (6.3-8.2)
[2024-07-02 02:21] LABS: INR 1.1 (<1.2); Prothrombin Time 11.6 sec (10.0-12.5)
[2024-07-02 02:25] LABS: VBG PH 7.31 (7.31-7.41)
[2024-07-02 02:29] LABS: NT-Pro-B-Type Natriuretic Pept 844 pg/mL
[2024-07-02 02:34] LABS: Glucose 35 mg/dL (74-99)
[2024-07-02] MEDS: DEXTROSE 50% SYRINGE 50 ML IVP STA (02:37)
[2024-07-02 02:42] LABS: Glucose,Whole Blood 214 mg/dL (70-110)
[2024-07-02 03:10] LABS: Glucose,Whole Blood 135 mg/dL (70-110)
[2024-07-02 03:49] LABS: Glucose,Whole Blood 103 mg/dL (70-110)
[2024-07-02 04:22] LABS: Appearance,Urine Cloudy (Clear); Bacteria,Urine Moderate /hpf; Bilirubin,Urine Negative (Negative); Blood,Urine Large (Negative); Color,Urine Light Red; Glucose,Urine (UA) Negative (Negative); Ketones,Urine Negative (Negative); Leukocyte Esterase,Urine Moderate (Negative); Nitrite,Urine Negative (Negative); PH, Urine 5.5 (5.0-8.0); Protein,Urine 1+ (Negative); RBC,Urine >182 /hpf (0-5); Specific Gravity,Urine 1.015 (1.001-1.035); Urobilinogen,Urine <2.0 mg/dL (<2.0); WBC,Urine 34 /hpf (0-5)
[2024-07-02 04:52] LABS: Glucose,Whole Blood 100 mg/dL (70-110)
[2024-07-02 06:09] VITALS: BP 157/92; PULSE 59; RESP 18
[2024-07-02 06:13] LABS: Glucose,Whole Blood 122 mg/dL (70-110)
== END 2024-07-02 06:08 | disposition home or self-care (01) ==
LOC: EC 01:37
DX: R41.82 Altered mental status, unspecified (principal); E16.2 Hypoglycemia, unspecified; Z79.84 Long term (current) use of oral hypoglycemic drugs; Z86.73 Personal history of transient ischemic attack (TIA), and cerebral infarction without residual deficits; Z95.1 Presence of aortocoronary bypass graft
CPT/HCPCS: 99285; 96374; 96375; 96361; 36415; 93005; 83880; 80053; 82803; 83605; 83735; 84100; 84443; 84484; 85025; 85610; 85730; 81001; 70450; J2060; J2405

== ENCOUNTER → 2024-12-02 | Outpatient (CLI) | payer MEDICARE, BC ==
[2024-12-02 18:25] LABS: MCH 31.2 pg (27.0-32.0); MCHC 31.3 g/dL (32.0-37.0); MCV 99.7 FL (80.0-97.0); Mean Platelet Volume 11.8 FL (9.5-12.2); NRBC Per 100 WBC 0 X 10*3/uL (0.00-0.01); Platelet Count 223 X 10*3/uL (140-440); RBC 3.21 X 10*6/uL (4.40-5.60); RDW 12.4 % (11.5-14.5); WBC 8.06 X 10*3/uL (4.50-10.00)
[2024-12-02 18:49] LABS: Blood Urea Nitrogen 40.3 mg/dL (9.0-27.0); Carbon Dioxide 21.1 mmol/L (21.6-31.8); Chloride 102 mmol/L (96-109); Potassium 6.1 mmol/L (3.5-5.5); Sodium 134 mmol/L (135-145)
== END | disposition home or self-care (01) ==
LOC: LABPAT 13:04
PROVIDERS: ATTEND Internal Medicine Clinical Cardiac Electrophysiology
DX: Z01.812 Encounter for preprocedural laboratory examination (principal); I49.5 Sick sinus syndrome; I50.9 Heart failure, unspecified; I25.10 Atherosclerotic heart disease of native coronary artery without angina pectoris
CPT/HCPCS: 80051; 82565; 84520; 85027

== ENCOUNTER → 2024-12-04 | Outpatient (CLI) | payer MEDICARE, BC | END | disposition home or self-care (01) | LOC: LABWHC1 13:49 | PROVIDERS: ATTEND Internal Medicine Clinical Cardiac Electrophysiology | DX: E87.5 Hyperkalemia (principal) | CPT/HCPCS: 36415; 84132 ==

== ENCOUNTER → 2024-12-09 | Outpatient (CLI) | payer MEDICARE, BC ==
[2024-12-09 10:10] LABS: African American GFR (CKD) 22 (>60 ml/min/1.73 sqM); Anion Gap 10 mmol/L; Blood Urea Nitrogen 41 mg/dL (9-20); Calcium 8.8 mg/dL (8.4-10.2); Carbon Dioxide 19 mmol/L (22-30); Chloride 111 mmol/L (98-107); Glucose 174 mg/dL (74-99); Non-African American GFR(CKD) 19 (>60 ml/min/1.73 sqM); Potassium 5.1 mmol/L (3.5-5.1); Sodium 140 mmol/L (137-145)
== END | disposition home or self-care (01) ==
LOC: LABWHC1 09:22
PROVIDERS: ATTEND Internal Medicine Clinical Cardiac Electrophysiology
DX: E87.5 Hyperkalemia (principal)
CPT/HCPCS: 36415; 80048

== ENCOUNTER 2024-12-10 13:16 | Day surgery (SDC) | payer MEDICARE, BC ==
[2024-12-10] MEDS: SODIUM CHLORIDE 0.9% 1,000 ML IV SCH (13:39)
[2024-12-10] MEDS: IV FLUID CONTINUATION 1,000 ML IV ONE (13:40)
[2024-12-10 13:55] LABS: Glucose,Whole Blood 104 mg/dL (70-110)
[2024-12-10] MEDS ORDERED: fentaNYL (PF) 50 MCG/ML 2 ML AMP ONE (16:12)
[2024-12-10] MEDS ORDERED: diphenhydrAMINE 50 MG/ML 1 ML VIAL ONE (16:12)
[2024-12-10] MEDS ORDERED: MIDAZOLAM 2 MG/2 ML VIAL ONE (16:12)
[2024-12-10] MEDS: IOPAMIDOL-370 100ML BTL IVP ONE (16:26)
[2024-12-10] MEDS: ROPIVACAINE 5 MG/ML 30 ML VIAL MISCELLANE ONE (16:55)
[2024-12-10] MEDS: LIDOCAINE 1% INJ 10MG/ML (20 ML MDV) SQ ONE (16:55)
[2024-12-10] MEDS: ceFAZolin 1 GM in SODIUM CHLORIDE 0.9% IRRIG BTL 250 ML IRRIGATION PRN (16:58)
[2024-12-10] MEDS ORDERED: ALPRAZolam 0.25 MG TAB PO PRN (18:12)
--- NOTE | 2024-12-10 18:32 | P.EPPROC ---
- EP Procedure Note Electrophysiology Procedure Note: Diagnosis Cardiomyopathy, chronic, ischemic in nature. Old myocardial infarction Congestive heart failure, systolic class II On guideline directed medical treatment guideline directed Sinus bradycardia Procedure: Single ICD implantation for management of risk of sudden cardiac d [facility] Geotechnical Intern: Dr. Hernandez Result: Single chamber ICD implantation, atrial pacing performed revealed AV node Wenckebach block pacing at less than 100 bpm in the RA. Patient very mildly sedated RV ICD lead: Medtronic 62 cm, model number 6935M. R waves 8 mV pace impedance 456 ohms, high-voltage impedance 62 ohms. Pacing threshold 0.8 V at 0.4 ms ICD generator: Medtronic cobalt XT VR MRI DF 4 single-chamber ICD Procedure details: Patient was brought to the EP lab in a fasting state. Written informed consent was obtained prior to the procedure. Options, pros and cons, benefits and risks and complications discussed with patient in detail prior to the procedure (shared decision making document, from [facility]). Importance of continuing medical treatment emphasized. Alternatives discussed. Patient would like to proceed with ICD implant. Left upper extremity venogram performed. 15 mL IV dye injected in the left arm. Patent axillary/subclavian vein The left pectoral area was prepped and draped as a protocol. IV antibiotics administered 1% lidocaine was used for local anesthesia. A 4 cm incision was made parallel to the deltopectoral groove, about 1.5 cm medial to it. The incision was carried down to the level of the pectoralis muscle and the subfascial pocket was made. Hemostasis was assured. The axillary vein access was obtained. Appropriately sized venous sheath was placed. Atrial pacing from the right atrium performed. In the mildly sedated state, AV node Wenckebach block at pacing rates less than 100 bpm. Therefore a dual- chamber ICD was not implanted. Instead a backup ICD was implanted with the plan of switching to carvedilol, low-dose ICD lead implanted in the right ventricle and screwed in. ICD lead tested for threshold, sensing, impedances and tested with high output pacing for diaphragmatic stimulation Lead secured to the underlying transverse muscle after removing sheaths . Pocket irrigated with antibiotic solution Leads connected to the ICD generator. Wound closed in 3 layers and dressed per protocol ICD was interrogated and programmed. Appropriate pacing parameters, antitachycardia therapies with antitachycardia pacing cardioversion defibrillations programmed. Patient tolerated the procedure well without any acute complications. See scanned device report in EMR for lead details Long-term plan if the patient becomes bradycardic in the future then an upgrade to a biventricular ICD, if his RV pacing percentage at VVI 40 beats a minute is greater than 20 to 40%
[2024-12-10 19:36] LABS: Glucose,Whole Blood 210 mg/dL (70-110)
[2024-12-10] MEDS: CITALOPRAM HYDROBROMIDE 20 MG TAB PO SCH (21:00)
[2024-12-10] MEDS: MONTELUKAST 10 MG TAB PO SCH (21:05)
[2024-12-10] MEDS: INSULIN NPL/INSULIN LISPRO 100 UNIT/ML 10 ML VL (Humalog 75/25) SQ SCH (21:06)
[2024-12-10] MEDS: carvediloL 3.125 MG TAB PO SCH (21:07)
[2024-12-10] MEDS: FUROSEMIDE 40 MG TAB PO SCH (21:21)
[2024-12-11 06:21] LABS: Glucose,Whole Blood 113 mg/dL (70-110)
[2024-12-11] MEDS: SPIRONOLACTONE 25 MG TAB PO SCH (08:11)
[2024-12-11] MEDS: buPROPion XL 150 MG TAB.ER.24H PO SCH (08:12)
[2024-12-11] MEDS: ISOSORBIDE MONONITRATE ER 30 MG TAB.ER.24H PO SCH (08:12)
[2024-12-11] MEDS: ACETAMINOPHEN TAB 325 MG TAB PO PRN (08:12)
[2024-12-11] MEDS: LOSARTAN 25 MG TAB PO SCH (08:13)
[2024-12-11] MEDS: ATORVASTATIN 40 MG TAB PO SCH (08:14)
[2024-12-11] MEDS: INSULIN NPL/INSULIN LISPRO 100 UNIT/ML 10 ML VL (Humalog 75/25) SQ SCH (08:21)
--- NOTE | 2024-12-11 09:35 | XR ---
EXAMINATION TYPE: XR chest 2V DATE OF EXAM: 12/11/2024 7:07 AM COMPARISON: 05/14/2024 CLINICAL INDICATION: Male, 79 years old with history of Lead placement check, , TECHNIQUE: Frontal and lateral views FINDINGS: Multiple overlying leads. Left anterior chest wall AICD generator with right ventricular lead. Median sternotomy wires and post-CABG clips. Heart borderline enlarged. Some patchy posterior basilar opaci ty is noted on the lateral view. Right-sided rib fracture deformities. No appreciable pneumothorax. IMPRESSION: 1. Left anterior chest wall AICD generator with right ventricular lead. No appreciable pneumothorax. 2. Patchy posterior basilar atelectasis/infiltrate. [facility], , 12/11/2024 9:33 AM
[2024-12-11 09:39] LABS: African American GFR (CKD) 23 (>60 ml/min/1.73 sqM); Anion Gap 9 mmol/L; Blood Urea Nitrogen 38 mg/dL (9-20); Calcium 8.7 mg/dL (8.4-10.2); Carbon Dioxide 19 mmol/L (22-30); Chloride 110 mmol/L (98-107); Glucose 141 mg/dL (74-99); Non-African American GFR(CKD) 20 (>60 ml/min/1.73 sqM); Potassium 5.1 mmol/L (3.5-5.1); Sodium 138 mmol/L (137-145)
--- NOTE | 2024-12-11 09:56 | P.PN ---
Subjective Progress Note Date: 12/11/24 The patient is a 79-year-old male who is currently admitted to the hospital after undergoing single-chamber ICD placement. Patient tolerated the procedure well. Follow-up x-ray shows no evidence of pneumothorax. Awaiting device interrogation. According to nursing staff patient had an episode of atrial tachycardia overnight. Dr. Hernandez did adjust his beta-jack. Patient states he did well overnight. No current discomfort. GENERAL: Well-appearing, well-nourished and in no acute distress. NECK: Supple without JVD or thyromegaly. LUNGS: Breath sounds clear to auscultation bilaterally. Respiration equal and unlabored. No wheezes, rales or rhonchi. HEART: Regular rate and rhythm without murmurs, rubs or gallops. S1 and S2 heard. EXTREMITIES: Normal range of motion, no edema. No clubbing or cyanosis. Peripheral pulses intact and strong. TELEMETRY: Sinus rhythm overnight IMPRESSION: Ischemic cardiomyopathy, EF 25% Class II congestive heart failure, systolic Coronary artery disease Paroxysmal atrial fibrillation Sick sinus syndrome Hyperkalemia New onset of chronic kidney disease PLAN: Continue carvedilol for antihypertensive and arrhythmia Discontinue metformin, spironolactone, and losartan Renal ultrasound to be completed Consult nephrology Further recommendations to be based on clinical course I am dictating on behalf of Dr Peter Hernandez's history/physical and assessment/p brenda. Objective - Vital Signs Vital signs: Vital Signs Temp 98.1 F 12/11/24 07:25 Pulse 50 L 12/11/24 07:25 Resp 17 12/11/24 07:25 BP 141/68 12/11/24 07:25 Pulse Ox 97 12/11/24 07:25 FiO2 Intake & Output 12/10/24 12/11/24 12/11/24 18:59 06:59 18:59 Intake Total 350 Output Total 600 Balance 350 -600 Weight 82 kg Intake: IV 350 Output: Urine 600 Other: # Bowel Movements 1 - Labs CBC & Chem 7: 12/11/24 09:01 Labs: Abnormal Lab Results - Last 24 Hours (Table) 12/10/24 12/11/24 12/11/24 Range/Units 19:32 06:13 09:01 Chloride 110 H (98-107) mmol/L Carbon Dioxide 19 L (22-30) mmol/L BUN 38 H (9-20) mg/dL Creatinine 2.90 H (0.66-1.25) mg/dL Glucose 141 H (74-99) mg/dL POC Glucose (mg/dL) 210 H 113 H (70-110) mg/dL
[2024-12-11] MEDS: SYMBICORT 80-4.5 MCG INHALER INHALATION SCH (10:09)
--- NOTE | 2024-12-11 10:53 | US ---
EXAMINATION TYPE: US kidneys/renal and bladder DATE OF EXAM: 12/11/2024 COMPARISON: CT 10/11/2022 CLINICAL INDICATION: Male, 79 years old with history of New onset of CKD TECHNIQUE: Grayscale imaging of the bilateral kidneys and urinary bladder: FINDINGS: EXAM MEASUREMENTS: Right Kidney: 10.1 x 5.0 x 5.7 cm Left Kidney: 10.0 x 4.9 x 4.6 cm Right Kidney: No hydronephrosis or masses seen, difficult to visualize due to bowel gas. Left Kidney: No hydronephrosis or masses seen Bladder: wnl Bilateral Jets seen: Left Inspector Optical Instrument notes: Exam limited by patient body habitus and overlying bowel gas. IMPRESSION: No evident hydronephrosis. Exam limitations due to bowel gas and body habitus. [facility], , 12/11/2024 10:51 AM
--- NOTE | 2024-12-11 14:46 | P.NPCON ---
History of Present Illness - Reason for Consult acute renal failure - History of Present Illness patient is a 79-year-old male with history of CHF and cardiomyopathy with ejection fraction of 25%. Patient was admitted to the hospital on an elective basis forICD implantation.this was placed on 12/10/2024. In the meantime labs showed Serum creatinine of 2.9 mg/dL. Previous labs show a creatinine of 3.1 on 12/02/2024 and prior to that there is a creatinine of 1.7 on 07/02/2024. Patient has not seen a hides inspector previously. He was not aware of his kidney function being weak except a few days ago. Patient does admit to some difficulty in passing urine. No history of use of NSAIDs No significant hypotension noted. Maintained on Lasix at home. 600 mL of urine charted for today. Past Medical History Past Medical History: Asthma, Coronary Artery Disease (CAD), Cancer, Heart Failure, CVA/TIA, Diabetes Mellitus, Hyperlipidemia, Hypertension, Myocardial Infarction (NC), Prostate Disorder Additional Past Medical History / Comment(s): hx. pos occult stool, hx SOME UPPER RIGHT CHEST PAIN. HX OF TIA, ENLARGED PROSTATE, NC X3, Prostate CA, see Dr. Hernandez's H & P Last Myocardial Infarction Date:: 2015 History of Any Multi-Drug Resistant Organisms: None Reported Past Surgical History: Coronary Bypass/CABG, Heart Catheterization With Stent, Hernia Repair Additional Past Surgical History / Comment(s): INGUINAL HERNIA, RT HEEL SURGERY WITH HARDWARE. BILATERAL CATARACTS.CABG-3 vessels Past Anesthesia/Blood Transfusion Reactions: No Reported Reaction Additional Past Anesthesia/Blood Transfusion Reaction / Comment(s): no hx blood transfusion Date of Last Stent Placement:: 10/01/2011 Smoking Status: Never smoker - Past Family History Mother Family Medical History: Cancer, Diabetes Mellitus Additional Family Medical History / Comment(s): pancreas Father Family Medical History: Cancer Medications and Allergies Home Medications Medication Instructions Recorded Confirmed Type Citalopram Hydrobromide [CeleXA] 40 mg PO HS 03/21/14 12/10/24 History Atorvastatin [Lipitor] 40 mg PO DAILY tab 01/19/18 12/10/24 Rx Insulin NPH Hum/Reg Insulin Hm 20 unit SQ HS 02/05/18 12/10/24 History [NovoLIN 70-30 100 UNIT/ML VIAL] ALPRAZolam [Xanax] 0.25 mg PO TID PRN 03/18/21 12/10/24 History Montelukast [Singulair] 10 mg PO HS 03/18/21 12/10/24 History Isosorbide Mononitrate ER [Imdur] 30 mg PO DAILY 04/21/22 12/10/24 History buPROPion HCL [buPROPion HCL XL] 150 mg PO DAILY 04/21/22 12/10/24 History Furosemide [Lasix] 40 mg PO BID 10/11/22 12/10/24 History Insulin NPH Hum/Reg Insulin Hm 28 unit SQ DAILY 10/11/22 12/09/24 History [NovoLIN 70-30 100 Unit/ml Vial] Tamsulosin [Flomax] 0.4 mg PO DAILY 10/11/22 12/10/24 History Docusate Sodium [Dok] 100 mg PO DAILY 04/24/24 12/10/24 History Dulaglutide [Trulicity] 3 mg SQ Q7D 04/24/24 12/09/24 History Fluticasone/Vilanterol [Breo 1 puff INHALATION RT-DAILY 04/24/24 12/10/24 History Ellipta 100-25 Mcg Inhalr] Meclizine [Antivert] 12.5 mg PO TID PRN 04/24/24 12/10/24 History Acetaminophen [Tylenol Arthritis] 650 mg PO BID 12/09/24 12/10/24 History Apixaban [Eliquis] 5 mg PO HS 12/09/24 12/10/24 History Bioflex 1 tab PO DAILY 12/09/24 12/10/24 History Clearlax 1 dose PO DAILY 12/09/24 12/10/24 History guaiFENesin [Mucinex] 1,200 mg PO DAILY 12/09/24 12/10/24 History carvediloL [Coreg] 3.125 mg PO BID #180 tablet 12/10/24 Rx Allergies Allergy/AdvReac Type Severity Reaction Status Date / Time No Known Allergies Allergy Verified 12/09/24 12:58 Physical Exam Vitals: Vital Signs Temp Pulse Resp BP BP BP Pulse Ox 12/11/24 07:25 98.1 F 50 L 17 141/68 97 12/11/24 01:55 97.9 F 55 L 17 125/53 98 12/10/24 21:17 56 L 123/52 97 12/10/24 20:17 51 L 121/45 95 12/10/24 20:00 56 L 12/10/24 19:48 53 L 112/49 94 L 12/10/24 19:17 50 L 111/39 95 12/10/24 19:10 97.6 F 57 L 16 104/49 96 12/10/24 19:08 54 L 112/34 96 12/10/24 18:47 60 137/62 12/10/24 18:32 64 133/56 96 Intake and Output 12/10/24 12/11/24 12/11/24 22:59 06:59 14:59 Intake Total 350 118 Output Total 200 400 Balance 150 -400 118 Intake: IV 350 Oral 118 Output: Urine 200 400 Other: # Bowel Movements 1 patient is awake, comfortable, no acute distress Examination of the heart S1 and S2 Examination of the lungs bilateral breath sounds are heard Abdomen is soft nontender Examination of lower extremities shows no evidence of edema MANAGER WIRELESS exam grossly intact Results - Lab Results Most recent lab results Calcium 8.7 mg/dL (8.4-10.2) 12/11/24 09:01 12/11/24 09:01 Assessment and Plan Assessment: 1. Acute kidney injury, rule out urine retention. Possible underlying ATN. Check UA. Ultrasound does not show any gross hydronephrosis. No nephrotoxic agents identified. 2. Chronic kidney disease stage IIIB to 4 with previous creatinine 1.7 in Junend 1.3 in April 2024. Previous UA showed 1+ proteinin June 2024.. Etiology is likely diabetic kidney disease 3. Cardiomyopathy with EF of about 25% status post AICD placement on 12/10/2024 4. Mild non-gap metabolic acidosis secondary to acute kidney injury Plan: check UA Accurate I's and O's Check bladder scan Add oral sodium bicarb Repeat labs in a.m. Patient will need follow-up as outpatient. He may have had progression of underlying chronic kidney disease. Thank you for the consultation. We will continue to follow the patient with you during his hospitalization.
[2024-12-11 16:53] LABS: Appearance,Urine Clear (Clear); Bilirubin,Urine Negative (Negative); Blood,Urine Negative (Negative); Color,Urine Colorless; Glucose,Urine (UA) Negative (Negative); Ketones,Urine Negative (Negative); Leukocyte Esterase,Urine Negative (Negative); Nitrite,Urine Negative (Negative); Protein,Urine Negative (Negative); Urobilinogen,Urine <2.0 mg/dL (<2.0)
[2024-12-11 17:21] LABS: Glucose,Whole Blood 171 mg/dL (70-110)
[2024-12-11 19:56] LABS: Glucose,Whole Blood 273 mg/dL (70-110)
[2024-12-12 06:17] LABS: Glucose,Whole Blood 113 mg/dL (70-110)
[2024-12-12] MEDS: FUROSEMIDE 40 MG TAB PO SCH (08:50)
--- NOTE | 2024-12-12 09:52 | P.DS ---
Providers Date of admission: 12/10/24 Attending physician: [facility] Consults: 12/11/24 09:50 Consult Physician Stat Consulting Provider: Johanne Shetty Consult Reason/Comments: New onset of renal failure Do you want consulting provider notified?: Yes Primary care physician: Jung Bagley Hospital Course: The patient is a 79-year-old male who is currently admitted to the hospital after undergoing single-chamber ICD placement. Patient tolerated the procedure well. Patient has developed new onset of kidney disease since June. Patient had been holding both spironolactone and metformin due to hyperkalemia on his preprocedure labs. Nephrology has been consulted during this admission for further recommendations. Renal and bladder ultrasound showed no hydronephrosis. Nephrology recommended strict I's and O's as well as bladder scanning, then outpatient follow-up. Patient states he did well overnight. He has some mild discomfort at his device site, but it is tolerable. GENERAL: Well-appearing, well-nourished and in no acute distress. NECK: Supple without JVD or thyromegaly. LUNGS: Breath sounds clear to auscultation bilaterally. Respiration equal and unlabored. No wheezes, rales or rhonchi. HEART: Regular rate and rhythm. Systolic murmur S1 and S2 heard. EXTREMITIES: No edema. No clubbing or cyanosis. Peripheral pulses intact and strong. TELEMETRY: Sinus rhythm overnight IMPRESSION: Ischemic cardiomyopathy, EF 25% Class II congestive heart failure, systolic Coronary artery disease Paroxysmal atrial fibrillation Sick sinus syndrome Hyperkalemia New onset of chronic kidney disease PLAN: Labs prior to discharge as recommended by nephrology Patient may be discharged later today with outpatient follow-up in 1 week I am dictating on behalf of Dr Peter Hernandez's history/physical and assessment/plan. Plan - Discharge Summary Discharge Rx Participant: Yes New Discharge Prescriptions: New carvediloL [Coreg] 3.125 mg PO BID #180 tablet No Action Citalopram Hydrobromide [CeleXA] 40 mg PO HS Atorvastatin [Lipitor] 40 mg PO DAILY tab Insulin NPH Hum/Reg Insulin Hm [NovoLIN 70-30 100 UNIT/ML VIAL] 20 unit SQ HS Montelukast [Singulair] 10 mg PO HS Isosorbide Mononitrate ER [Imdur] 30 mg PO DAILY buPROPion HCL [buPROPion HCL XL] 150 mg PO DAILY Insulin NPH Hum/Reg Insulin Hm [NovoLIN 70-30 100 Unit/ml Vial] 28 unit SQ DAILY Meclizine [Antivert] 12.5 mg PO TID PRN PRN Reason: Vertigo guaiFENesin [Mucinex] 1,200 mg PO DAILY Apixaban [Eliquis] 5 mg PO HS Clearlax 1 dose PO DAILY ALPRAZolam [Xanax] 0.25 mg PO TID PRN PRN Reason: Anxiety Tamsulosin [Flomax] 0.4 mg PO DAILY Furosemide [Lasix] 40 mg PO BID Fluticasone/Vilanterol [Breo Ellipta 100-25 Mcg Inhalr] 1 puff INHALATION RT- DAILY Dulaglutide [Trulicity] 3 mg SQ Q7D Docusate Sodium [Dok] 100 mg PO DAILY Bioflex 1 tab PO DAILY Acetaminophen [Tylenol Arthritis] 650 mg PO BID Discharge Medication List Citalopram Hydrobromide [CeleXA] 40 mg PO HS 03/21/14 [History] Atorvastatin [Lipitor] 40 mg PO DAILY tab 01/19/18 [Rx] Insulin NPH Hum/Reg Insulin Hm [NovoLIN 70-30 100 UNIT/ML VIAL] 20 unit SQ HS 02/05/18 [History] ALPRAZolam [Xanax] 0.25 mg PO TID PRN 03/18/21 [History] Montelukast [Singulair] 10 mg PO HS 03/18/21 [History] Isosorbide Mononitrate ER [Imdur] 30 mg PO DAILY 04/21/22 [History] buPROPion HCL [buPROPion HCL XL] 150 mg PO DAILY 04/21/22 [History] Furosemide [Lasix] 40 mg PO BID 10/11/22 [History] Insulin NPH Hum/Reg Insulin Hm [NovoLIN 70-30 100 Unit/ml Vial] 28 unit SQ DAILY 10/11/22 [History] Tamsulosin [Flomax] 0.4 mg PO DAILY 10/11/22 [History] Docusate Sodium [Dok] 100 mg PO DAILY 04/24/24 [History] Dulaglutide [Trulicity] 3 mg SQ Q7D 04/24/24 [History] Fluticasone/Vilanterol [Breo Ellipta 100-25 Mcg Inhalr] 1 puff INHALATION RT- DAILY 04/24/24 [History] Meclizine [Antivert] 12.5 mg PO TID PRN 04/24/24 [History] Acetaminophen [Tylenol Arthritis] 650 mg PO BID 12/09/24 [History] Apixaban [Eliquis] 5 mg PO HS 12/09/24 [History] Bioflex 1 tab PO DAILY 12/09/24 [History] Clearlax 1 dose PO DAILY 12/09/24 [History] guaiFENesin [Mucinex] 1,200 mg PO DAILY 12/09/24 [History] carvediloL [Coreg] 3.125 mg PO BID #180 tablet 12/10/24 [Rx] Follow up Appointment(s)/Referral(s): Pteer Hernandez MD [STAFF PHYSICIAN] - 12/17/24 3:00 pm (FOLLOW UP APPOINTMENT MADE WITH THE DEVICE CLINIC. ) Activity/Diet/Wound Care/Special Instructions: PATIENT EDUCATION MATERIAL Instructions following a heart rhythm device implant. 1. Keep dressing DRY for 5 DAYS. You may cover the area with Saran or Cling Wrap, prior to a shower. 2. The dressing will be removed in the Device [facility] at [facility]. Absorbable sutures were used to close the wound. 3. Avoid raising the left arm above the shoulder level. 4 week restriction 4. Avoid arm movements, like backscratching, rubbing the head, or pulling on a cord. 4 weeks restriction 5. Gentle range of motion movements of the shoulder, closest to the incision should be performed to avoid a frozen shoulder. (Pendulum exercises of the shoulder) 6. The opposite arm may be used freely. 7. Avoid driving for 7 days. 8. Avoid activities such as golfing, swimming, weed whacking, lifting more than 10 pounds weight, bowling, gymnastics and weight training/lifting. (6 weeks restriction) 9. Activities such as wood chopping with an axe, pull-ups in the gymnasium, power lifting, arc-welding, being close to home induction cooktops will always be a problem. 10. Arm sling is only a reminder not to raise the arm above the head. You do not need to keep the arm completely immobilized. Your free to move the arm and use it and for normal activities. In case of any problems, please call [facility], @ [phone], Attention: Device Clinic Device clinic follow-up in 5 days Follow-up with primary storage architect in 2-3 months Stop metoprolol Start carvedilol 3.125 mg twice daily. Continue all other cardiomyopathy medications Discharge Disposition: HOME SELF-CARE
[2024-12-12 11:21] LABS: African American GFR (CKD) 27 (>60 ml/min/1.73 sqM); Anion Gap 7 mmol/L; Blood Urea Nitrogen 37 mg/dL (9-20); Calcium 8.8 mg/dL (8.4-10.2); Carbon Dioxide 19 mmol/L (22-30); Chloride 111 mmol/L (98-107); Glucose 176 mg/dL (74-99); Magnesium 2.1 mg/dL (1.6-2.3); Non-African American GFR(CKD) 23 (>60 ml/min/1.73 sqM); Phosphorus 3.4 mg/dL (2.5-4.5); Potassium 4.4 mmol/L (3.5-5.1); Sodium 137 mmol/L (137-145)
--- NOTE | 2024-12-12 13:26 | P.PN ---
Subjective Patient is seen for follow-up for chronic kidney disease and acute kidney injury. Maintained on gentle IV hydration. Renal function improved slightly with serum creatinine down to 2.5 today from around 3 mg/dL. No significant complaints Good urine output Objective - Vital Signs Vital signs: Vital Signs Temp 98.3 F 12/12/24 06:55 Pulse 60 12/12/24 06:55 Resp 16 12/12/24 06:55 BP 151/75 12/12/24 06:55 Pulse Ox 95 12/12/24 06:55 FiO2 Intake & Output 12/11/24 12/12/24 12/12/24 18:59 06:59 18:59 Intake Total 339 240 Output Total 120 800 600 Balance 219 -800 -360 Intake: Oral 339 240 Output: Urine 120 800 600 - Exam patient is awake, comfortable, no acute distress Examination of the heart S1 and S2 Examination of the lungs bilateral breath sounds are heard Abdomen is soft nontender Examination of lower extremities shows no evidence of edema BREAST TRIMMER exam grossly intact - Labs CBC & Chem 7: 12/12/24 10:34 Labs: Abnormal Lab Results - Last 24 Hours (Table) 12/11/24 12/11/24 12/12/24 Range/Units 17:18 19:55 06:16 Chloride (98-107) mmol/L Carbon Dioxide (22-30) mmol/L BUN (9-20) mg/dL Creatinine (0.66-1.25) mg/dL Glucose (74-99) mg/dL POC Glucose (mg/dL) 171 H 273 H 113 H (70-110) mg/dL 12/12/24 Range/Units 10:34 Chloride 111 H (98-107) mmol/L Carbon Dioxide 19 L (22-30) mmol/L BUN 37 H (9-20) mg/dL Creatinine 2.57 H (0.66-1.25) mg/dL Glucose 176 H (74-99) mg/dL POC Glucose (mg/dL) (70-110) mg/dL Assessment and Plan Assessment: 1. Acute kidney injury, rule out urine retention. Possible underlying ATN. Improved with IV hydration. UA is completely benign. Ultrasound does not show any gross hydronephrosis. No nephrotoxic agents identified. 2. Chronic kidney disease stage IIIB to 4 with previous creatinine 1.7 in Junend 1.3 in April 2024. Previous UA showed 1+ proteinin June 2024.. Etiology is likely diabetic kidney disease 3. Cardiomyopathy with EF of about 25% status post AICD placement on 12/10/2024 4. Mild non-gap metabolic acidosis secondary to acute kidney injury Plan: Okay for discharge from nephrology standpoint Follow-up as outpatient for chronic kidney disease May continue with oral Lasix but decrease to once a day Continue oral sodium bicarb Repeat labs in a.m.
[2024-12-12 13:27] VITALS: BP 137/75; PULSE 56; RESP 17; TEMP 98.1
[2024-12-12] MEDS ORDERED: metFORMIN 500 MG TAB PO SCH (17:30)
[2024-12-13] MEDS ORDERED: NON FORMULARY DRUG (Dulaglutide [Trulicity] 3 MG/0.5 ML Each) SQ SCH (09:00)
== END 2024-12-12 14:48 | disposition home or self-care (01) ==
LOC: CATHEP 13:16 → 6NMEDSUR 17:48 → CATHEP 12-12 14:48
PROVIDERS: ATTEND Internal Medicine Clinical Cardiac Electrophysiology
DX: I25.5 Ischemic cardiomyopathy (principal); I25.2 Old myocardial infarction; I25.10 Atherosclerotic heart disease of native coronary artery without angina pectoris; I13.0 Hypertensive heart and chronic kidney disease with heart failure and stage 1 through stage 4 chronic kidney disease, or unspecified chronic kidney disease; I50.22 Chronic systolic (congestive) heart failure; N18.32 Chronic kidney disease, stage 3b; J45.909 Unspecified asthma, uncomplicated; I49.5 Sick sinus syndrome; I48.0 Paroxysmal atrial fibrillation; I47.19 Other supraventricular tachycardia; E11.22 Type 2 diabetes mellitus with diabetic chronic kidney disease; E78.5 Hyperlipidemia, unspecified; N40.0 Benign prostatic hyperplasia without lower urinary tract symptoms; E87.5 Hyperkalemia; E87.20 Acidosis, unspecified; Z79.01 Long term (current) use of anticoagulants; Z79.4 Long term (current) use of insulin; Z79.899 Other long term (current) drug therapy; Z86.73 Personal history of transient ischemic attack (TIA), and cerebral infarction without residual deficits
CPT/HCPCS: 94640 ×2; 33249; 80048 ×2; 83735; 84100; 84443; 81003; 71046; 76770; C1769 ×2; C1722; C1892; C1895; J2250; J1200; J0690; J2003; J3010; J2795; Q9967